=== PATIENT | male | born 1960 | race Caucasian/White ===

== ENCOUNTER 2022-07-02 14:47 | Outpatient (CLI) | payer MEDICARE, SELFPAY ==
--- NOTE | ~2022-07-02 | XR_ITS ---
EXAMINATION: XR abdomen obstructive series DATE: 07/02/2022 15:09 INDICATION: Abdomen pain. TECHNIQUE: Supine and upright views of the abdomen. FINDINGS: No prior studies for comparison. The visualized lung parenchyma is normal.. There is a nonobstructive bowel gas pattern. Moderate colo michael fecal loading. Gas and stool are seen throughout the colon to the level of the rectum. There is no free air. There is a sclerotic lesion in the left femoral neck, likely benign bone island. IMPRESSION: 1. No acute abdominal abnormality. Reviewed, dictated and finalized at location L.
--- NOTE | ~2022-07-02 | XR_ITS ---
XR chest 2V 07/02/2022 15:09 Indication: Abdomen and chest pain Procedure: 2 view chest Comparison: 07/15/2011 Findings: Focal asymmetric density in the left lower thorax most likely represents a prominent nipple shadow. Recommend repeat PA view of the chest with nipple markers. No focal air space disease, pulmo nary edema, pleural effusion or suspected pneumothorax. Impression: 1: No acute cardiopulmonary disease. 2: Recommend repeat PA view of the chest with nipple markers for further assessment of asymmetric nod ular density left lower thorax. Reviewed, dictated and finalized at location L. Impression: 1: No acute cardiopulmonary disease. 2: Recommend repeat PA view of the chest with nipple markers for further assess ment of asymmetric nodular density left lower thorax.
== END 2022-07-02 14:48 | disposition home or self-care (01) ==
LOC: ANHIMG 14:51
PROVIDERS: PCP Family Medicine; Visit Provider Family Medicine
DX: F12.10 Cannabis abuse, uncomplicated (principal); R11.0 Nausea; R63.4 Abnormal weight loss; R10.9 Unspecified abdominal pain; Z87.891 Personal history of nicotine dependence
CPT/HCPCS: 71046; 74019

== ENCOUNTER 2022-07-04 07:41 | Outpatient (CLI) | payer MEDICARE, SELFPAY ==
--- NOTE | ~2022-07-04 | XR_ITS ---
EXAMINATION: XR chest 2V DATE: 07/04/2022 08:06 INDICATION: Left lung nodule. Abnormal findings on diagnostic imaging. TECHNIQUE: Frontal and lateral views of the chest were obtained with nipple markers. COMPARISON: Chest 2 views 07/02/2022 FINDINGS: There is mild scarring at the lung apices. No pleural effusion or pneumothorax. The heart s ize is normal. IMPRESSION: 1. Stable mild scarring at the lung apices. 2. The finding on the prior chest radiograph was the normal left nipple shadow. Reviewed, dictated and finalized at location A.
== END 2022-07-04 07:42 | disposition home or self-care (01) ==
LOC: ANHIMG 07:44
PROVIDERS: PCP Family Medicine; Visit Provider Nurse Practitioner Gerontology
DX: R93.89 Abnormal findings on diagnostic imaging of other specified body structures (principal); R91.8 Other nonspecific abnormal finding of lung field
CPT/HCPCS: 71046

== ENCOUNTER 2022-07-08 07:35 | Outpatient (CLI) | payer MEDICARE, SELFPAY ==
[2022-07-08 08:01] LABS: Basophils Percent Auto 0.3 % (0.2-1.2); Eosinophils Absolute Auto 0.1 K/mm3 (0-0.3); Eosinophils Percent Auto 1.7 % (0-4.4); Hematocrit 41.7 % (42.0-52.0); Hemoglobin 13.2 g/dL (14.0-18.0); Immature Granulocyte Absolute 0.02 K/mm3 (0.00-0.031); Immature Granulocyte Percent A 0.3 % (0-0.5); Lymphocytes Absolute Auto 1.54 K/mm3 (0.9-3.2); Lymphocytes Percent Auto 21.6 % (18.3-44.2); Mean Corpuscular HGB Conc 31.7 g/dl (32-36); Mean Corpuscular Hemoglobin 30.4 pg (26-34); Mean Corpuscular Volume 96.1 fl (80-100); Mean Platelet Volume 9.2 fl (7.4-10.4); Monocytes Absolute Auto 0.6 K/mm3 (0.1-0.6); Monocytes Percent Auto 8.1 % (2.6-8.5); Neutrophils Absolute Auto 4.8 K/mm3 (1.3-6.7); Platelet Count Result 239 k/mm3 (150-375); Red Blood Count 4.34 M/mm3 (4.6-6.20); Red Cell Distribution Width 14.2 % (11.5-14.5); White Blood Count 7.1 K/mm3 (4.5-10.0)
[2022-07-08 08:11] LABS: Alanine Aminotransferase 13 U/L (6-50); Albumin Level 4.1 g/dL (3.5-5.1); Alkaline Phosphatase 95 U/L (38-126); Anion Gap 3 mmol/L (8-16); Aspartate Amino Transferase 18 U/L (17-59); Bilirubin,Total 0.4 mg/dL (0.2-1.3); Blood Urea Nitrogen 10 mg/dL (9-20); Calcium 8.6 mg/dL (8.4-10.2); Carbon Dioxide 32 mmol/L (22-30); Chloride 104 mmol/L (98-107); Cholesterol 174 mg/dL (0-200); Estimated Glomerular Filt Rate > 60; Glucose 105 mg/dL (65-110); HDL Direct 46 mg/dL; Hemoglobin A1C 5.6 % (<5.7); Potassium 4.2 mmol/L (3.4-5.0); Sodium 139 mmol/L (137-145); Triglycerides 58 mg/dL (<150); Uric Acid 3.7 mg/dL (3.5-8.5)
[2022-07-08 08:22] LABS: LDL Cholesterol Direct 114 mg/dL
[2022-07-08 08:44] LABS: Thyroid Stimulating Hormone 0.788 uIU/mL (0.465-4.680)
[2022-07-12 11:29] LABS: ANA Cascade Screen Negative (Negative)
[2022-07-14 16:51] LABS: PSA, Free 0.13 ng/mL; PSA, Total 0.7 ng/mL (<=4.0)
== END 2022-07-08 07:36 | disposition home or self-care (01) ==
LOC: ANHLAB 07:38
PROVIDERS: PCP Family Medicine; Visit Provider Family Medicine
DX: M06.30 Rheumatoid nodule, unspecified site (principal); F12.10 Cannabis abuse, uncomplicated; R63.4 Abnormal weight loss; R10.9 Unspecified abdominal pain; N40.1 Benign prostatic hyperplasia with lower urinary tract symptoms; E03.9 Hypothyroidism, unspecified; E79.0 Hyperuricemia without signs of inflammatory arthritis and tophaceous disease
CPT/HCPCS: 36415; 80053; 80061; 83036; 84153; 84154; 84443; 84550; 85025; 86038

== ENCOUNTER 2023-01-13 12:24 | Outpatient (CLI) | payer MEDICARE, SELFPAY ==
--- NOTE | ~2023-01-13 | CT_ITS ---
EXAMINATION: CT chest abdomen pelvis wo con DATE: 01/13/2023 13:02 GROUT PUMP OPERATOR INDICATION: Anemia. TECHNIQUE: Computed tomography (CT) of the chest, abdomen, and pelvis was performed without intraveno us contrast. The dose-length product was 303.34 mGy-cm. Automated exposure control and iterative eloisa nstruction technique were employed. COMPARISON: None FINDINGS: CHEST CT: No significant pleural or pericardial effusion. No thoracic lymphadenopathy. Heart size normal. There is atherosclerosis of the aorta and coronary artery. There is emphysema. No endobronchial lesions. N o pneumothorax. No focal airspace disease. ABDOMEN/PELVIS CT: At the dome of the liver there is a small locule of gas, possibly within the IVC, likely iatrogenic. There is a markedly distended gallbladder containing gas which extends into the biliary tract and adrián ng the gallbladder wall. There is also fluid and gas adjacent to the inferior margin of the gallbladd er which is not definitely intraluminal. Perforation of the gallbladder with abscess cannot be exclud ed. Recommend correlation with CT abdomen with oral and IV contrast. Nonobstructive bowel gas pattern . Mild diffuse mesenteric edema. There appears to be free air along the anterior abdomen just below t he liver. Bowel perforation is not excluded. IMPRESSION: 1. Dilated gallbladder with gas involving the gallbladder wall as well as air-fluid level in the gall bladder, suspicious for an emphysematous cholecystitis. There is gas extending into the biliary tract with possible perforation along the inferior medial margin of the gallbladder, suspicious for perfor ation with abscess. There is free air along the liver margin inferiorly and anteriorly. Consider repe at CT abdomen with IV and oral contrast. Patient will be held in radiology until patient's clinician as contacted with her report. Reviewed, dictated and finalized at location B. T PUMP OPERATOR IMPRESSION: 1. Dilated gallbladder with gas involving the gallbladder wall as well as air-f luid level in the gallbladder, suspicious for an emphysematous cholecystitis. T here is gas extending into the biliary tract with possible perforation along th e inferior medial margin of the gallbladder, suspicious for perforation with ab scess. There is free air along the liver margin inferiorly and anteriorly. Cons ider repeat CT abdomen with IV and oral contrast. Patient will be held in radiology until patient's clinician as contacted with h er report.
== END 2023-01-13 12:25 | disposition home or self-care (01) ==
PROVIDERS: PCP Family Medicine; Visit Provider Family Medicine
DX: K82.8 Other specified diseases of gallbladder (principal); D64.9 Anemia, unspecified; R11.0 Nausea; R63.4 Abnormal weight loss; R10.9 Unspecified abdominal pain; R93.89 Abnormal findings on diagnostic imaging of other specified body structures
CPT/HCPCS: 71250; 74176

== ENCOUNTER 2023-01-13 13:45 | Emergency (ER) | payer MEDICARE, SELFPAY ==
[2023-01-13 13:50] VITALS: BP 115/69; PULSE 84; RESP 16; TEMP 36.5; O2SAT 97
[2023-01-13 14:07] LABS: Hematocrit 37.6 % (42.0-52.0); Mean Corpuscular HGB Conc 31.9 g/dl (32-36); Mean Corpuscular Volume 90.8 fl (80-100); Mean Platelet Volume 9.5 fl (7.4-10.4); Platelet Count Result 374 k/mm3 (150-375); Red Blood Count 4.14 M/mm3 (4.6-6.20); Red Cell Distribution Width 14.1 % (11.5-14.5); White Blood Count 18.6 K/mm3 (4.5-10.0)
[2023-01-13 14:17] LABS: Alanine Aminotransferase 36 U/L (6-50); Albumin Level 3.1 g/dL (3.5-5.1); Alkaline Phosphatase 127 U/L (38-126); Anion Gap 12 mmol/L (8-16); Aspartate Amino Transferase 48 U/L (17-59); Bilirubin,Total 0.6 mg/dL (0.2-1.3); Blood Urea Nitrogen 24 mg/dL (9-20); Calcium 8.4 mg/dL (8.4-10.2); Carbon Dioxide 27 mmol/L (22-30); Chloride 93 mmol/L (98-107); Estimated CRCL calculation 51 ml/min; Estimated Glomerular Filt Rate > 60; Glucose 132 mg/dL (65-110); Lipase 122 U/L (23-300); Potassium 2.9 mmol/L (3.4-5.0); Sodium 132 mmol/L (137-145)
[2023-01-13 14:19] LABS: Appearance Urine Cloudy (Clear); Bacteria Urine None Seen /hpf; Bilirubin Urine 1+ (Negative); Blood Urine Negative (Negative); Color Urine Dark Yellow (Yellow); Glucose Urine UA Negative (Negative); Hyaline Casts Urine Present /lpf; Ketones Urine Trace mg/dL (Negative); Leukocyte Esterase Ur Negative LEU/UL (Negative); Mucus Urine Present /lpf; Nitrate Urine Negative (Negative); Protein Urine 1+ mg/dL (Negative); Specific Grav Ur 1.035 (1.001-1.035); Squamous Epithelial Cell Urine Moderate /hpf (Few); WBC Urine 0-5 /hpf; pH Urine 5.5 (5.0-9.0)
[2023-01-13 14:23] LABS: Add Urine Microscopic? YES
[2023-01-13 14:47] LABS: Band Neutrophils Percent 3 % (0-6); Eosinophils Absolute Manual 0.18 K/mm3 (0.02-0.5); Eosinophils Percent Manual 1 % (0-4); Monocytes Absolute Manual 0.93 K/mm3 (0.1-0.90); Monocytes Percent Manual 5 % (3-9); Neutrophils Absolute Manual 16.18 K/mm3 (1.3-6.7); Neutrophils Percent Manual 84 % (46-73); Platelet Estimate Adequate (Adequate); Total Cells Counted 100
[2023-01-13 14:55] LABS: Schistocytes None Seen (NORMAL)
--- NOTE | 2023-01-13 15:25 | ED.ABDPAIN ---
HPI - Abdominal Pain General Chief Complaint: Abdominal Pain Stated Complaint: abd pain Time Seen by Provider: 01/13/23 15:06 Source: patient and old records reviewed Mode of arrival: ambulatory Limitations: no limitations History of Present Illness HPI narrative: Patient is a 62 y/o male who presents to the ED with report of upper abdominal pain. Patient reports he has had intermittent abdominal pain over the last 1 year. He has been seeing his primary care doctor for this and trying different medications for what he was told was constipation. He reports having worsening pain since the day before Thanks[place]. He reports intermittent pain that radiates from his right lower quadrant around in a crow, as well as epigastric pain. He states at times it feels like heartburn. He has been trying a liquid diet at home which has provided some relief of the pain. He followed up with his PCP yesterday and received an outpatient CT scan of his chest/abdomen/pelvis today which showed findings concerning for perforated gallbladder, emphysematous cholecystitis. Patient was then referred here. Patient has not taken anything for pain today. Denies nausea, vomiting fevers, constipation, diarrhea. Last BM this morning. Related Data Allergies Allergy/AdvReac Type Severity Reaction Status Date / Time Penicillins Allergy Mild rash Verified 01/12/23 15:31 Review of Systems Review of Systems: CONSTITUTIONAL: Denies fever, chills, or sweats. GASTROINTESTINAL: See HPI. GENITOURINARY: Denies dysuria or hematuria. SKIN: Denies rash or itching. MUSCULOSKELETAL: Denies back pain, joint pain, or myalgia. All systems reviewed & are unremarkable except as noted in HPI and below PMFSH Social History Social History Social History: Smoking packs per day: 3 Smoking cigarettes per day: 60.0 Years smoked: 18 Smoking pack-years: 54.00 Smoking status: Former smoker Tobacco type: cigarettes Second hand tobacco smoke exposure: No Alcohol intake: never Substance use: current Substance use type: marijuana Other substance usage details: DAILY-MARIJUANA Lack of Transportation: No Lack of Food: Never True Current Housing: I Have Housing Concerned About Future Housing: No Difficulty Paying Gas/Electric Bills: No Difficulty Paying for Meds: No Currently Unemployed: YES Education: Decline to Answer Difficulty w/ Childcare or Family Care: No Living arrangements: alone Occupation/Education: retired Gender identity (if verbalized by the patient): Male Sexual Orientation (if Verbalized by the Patient): Straight or Heterosexual Spiritual care concerns: No Exam Narrative: GENERAL: Appears older than stated age, thin, somewhat frail, non-toxic, in no acute distress. HEAD: Normocephalic, atraumatic. NECK: Supple. No adenopathy, no masses. RESPIRATORY: Airway patent, respirations nonlabored. CARDIOVASCULAR: Regular rate and rhythm on telemetry. ABDOMINAL: Abdomen is somewhat firm, nondistended, mild tenderness noted in right upper quadrant/epigastric region. Normoactive BS. MUSCULOSKELETAL: Moves all extremities. No gross deformities. SKIN: Warm, dry, normal color. No rashes. NEURO: A&O X3. Speech clear. Cranial nerves II-XII grossly intact. Steady gait. No ataxic movements. PSYCHIATRIC: Appropriate mood and affect. Normal interaction. Course Vital Signs Vital signs: Vital Signs Temperature 97.7 F 01/13/23 13:50 Pulse Rate 84 01/13/23 13:50 Respiratory Rate 16 01/13/23 13:50 Blood Pressure 115/69 01/13/23 13:50 Pulse Oximetry 97 01/13/23 13:50 Oxygen Delivery Room Air 01/13/23 13:50 Temperature 97.7 F 01/13/23 13:50 Pulse Rate 84 01/13/23 13:50 Respiratory Rate 16 01/13/23 13:50 Blood Pressure 115/69 01/13/23 13:50 Pulse Oximetry 97 01/13/23 13:50 Oxygen Delivery Room Air 01/13/23 13:5
[2023-01-13] MEDS: POTASSIUM CHLORIDE 20 MEQ ER TABLET 40 MEQ PO (16:03)
[2023-01-13] MEDS: CIPROFLOXACIN 500 MG TAB PO (16:04)
[2023-01-13] MEDS: metroNIDAZOLE 500 MG TABLET PO (16:05)
== END 2023-01-13 16:21 | disposition left against medical advice (07) ==
PROVIDERS: Emergency Medicine; Emergency Provider Physician Assistant; PCP Family Medicine
DX: K81.0 Acute cholecystitis (principal); K82.A2 Perforation of gallbladder in cholecystitis; E87.6 Hypokalemia; Z87.891 Personal history of nicotine dependence
CPT/HCPCS: 36415; 80053; 81001; 83690; 85025; 99283; A9270

== ENCOUNTER 2023-01-14 09:43 | Inpatient (IN) | payer MEDICARE, SELFPAY ==
[2023-01-14] VITALS (11 sets, daily range): BP systolic 105–143; BP diastolic 59–75; PULSE 87–118; RESP 14–28; TEMP 36.3–37.3; O2SAT 97–100; BMI 17.1
--- NOTE | ~2023-01-14 | XR_ITS ---
XR abdomen gastric tube rechec INDICATION: Evaluate NG tube position. TECHNIQUE: Limited KUB perform for evaluating NG tube . COMPARISON: No prior studies for comparison. FINDINGS: NG tube tip in the stomach. There is a laparotomy staple line. There is a drainage catheter in the right upper abdomen. Visualized bowel gas pattern is unremarkable.Small left pleural effusion with left basilar airspace disease, likely atelectasis. IMPRESSION: 1: NG tube tip in the stomach. Reviewed, dictated and finalized at location A. EXPORT LOGISTICS MANAGER
--- NOTE | ~2023-01-14 | US_ITS ---
US abdomen limited 01/14/2023 13:09 Indication: Cholecystitis by CT. Procedure: High-resolution Limited ultrasound of the abdomen Comparison: CT dated 01/13/2023 Findings: Complex heterogeneous appearance to the liver with multiple ill-defined masses, largest tahira suring approximately 3 cm. Gallbladder contains debris and is thickened with pericholecystic fluid. T here is nearby complex hypoechoic structure with nondependent echogenic foci which may represent gas. Consider abscess. There is free fluid adjacent to the gallbladder. There is mild intrahepatic biliar y dilatation. CBD is normal measuring 5 mm. IVC and abdominal aorta are patent. Pancreatic duct is mi ldly prominent measuring 3 mm. No pancreatic masses. Impression: 1: Complex heterogeneous appearance to the liver including masses of the left hepatic lobe measuring up to 3 cm. Cannot exclude metastatic disease. 2: Thickened gallbladder containing sludge and pericholecystic fluid. There is fluid adjacent to the gallbladder which may represent bowel, although abscess is not excluded. 3: Recommend follow-up CT abdomen with/without IV and oral contrast for further assessment. Reviewed, dictated and finalized at location L. GUARDRAIL INSTALLER Impression: 1: Complex heterogeneous appearance to the liver including masses of the left h epatic lobe measuring up to 3 cm. Cannot exclude metastatic disease. 2: Thickened gallbladder containing sludge and pericholecystic fluid. There is fluid adjacent to the gallbladder which may represent bowel, although abscess i s not excluded. 3: Recommend follow-up CT abdomen with/without IV and oral contrast for further assessment.
--- NOTE | ~2023-01-14 | CT_ITS ---
CT of the Abdomen and Pelvis: Indication: Abnormal liver and gallbladder Technique: 2.5 mm axial scans were obtained through the abdomen and pelvis prior to and following in travenous administration of 100 cc of Omnipaque 350. Dose reduction technique was used on this scan b y utilizing automated exposure control and iterative reconstruction technique. The dose-length produc t (DLP) was 563.23 mGy-cm. COMPARISON: 01/13/2023 Findings: Scans through the lung bases are unremarkable. There is a 2.8 cm fluid collection with internal air bubble adjacent to the suprahepatic IVC/confluen ce of hepatic veins (series 6 image 28), suspicious for small abscess. There is a much larger infrahe patic abscess measuring 8.2 x 3.6 x 6.5 cm in size (axial image 67, coronal image 49). There is an ad ditional, probable separate infrahepatic abscess or anteriorly, measuring 6.1 x 2.1 x 5.8 cm (coronal image 32, axial image 81). There is an irregular hypodense area in the liver adjacent to gallbladder fossa with small bubbles of air, measuring 3.0 x 2.5 cm (series 6 image 53). There is an additional fluid collection or necrotic mass subjacent to the left hepatic lobe cyst also or malignant, directly extending into the left hep atic lobe, with multiple septations, measuring up to approximately 5.8 x 3.0 cm in overall extent (ax ial images 54-66). The spleen, pancreas, adrenals and kidneys are within normal limits. There is diff use gallbladder wall thickening. No evidence of aortic aneurysm. No lymphadenopathy. There is an irregular mass centered at the ileocolic junction/cecum, measuring up to approximately 5. 5 cm in overall maximum extent (axial image 98, coronal image 51). There is diffuse dilatation of the appendix, as origin is probably obstructed by the mass lesion. There is an additional possible mass or serosal implant at the mid transverse colon (axial image 109). There is a probable necrotic mass v ersus complex fluid collection in the anterior abdomen just left of midline measuring 6.3 x 4.4 x 3.4 cm in size (axial images 82-96, coronal image 30). Images through the pelvis were performed. Urinary bladder unremarkable. No definite pelvic mass seen. There is trace ascites with diffuse mesenteric edema. Impression: 2 intrahepatic abscesses, measuring 8.2 cm and 6.1 cm in maximum diameter respectively. Please see de tails above. Probable additional 2.8 cm abscess above the liver near the confluence of the hepatic ve in/suprahepatic IVC. 5.5 cm mass at the cecum/caudate junction region, most likely colonic adenocarcinoma. 5.8 x 3.0 cm irregular multiloculated cystic-appearing mass inferior to the left hepatic lobe, invadi ng into the left hepatic lobe. 6.3 cm necrotic mass versus complex fluid collection in the anterior l eft abdomen. These lesions could reflect necrotic metastatic disease versus complex abscesses. Additional 3.0 x 2.5 cm irregular hypodense area in the liver with small bubbles of air, suggestive o f developing abscess. This lesion is felt to be unlikely metastatic in nature. Diffuse dilatation of the appendix, whose origin is obstructed by the aforementioned cecal/ileocolic tumor. Case discussed with Dr. Bui at the time of this reading. Reviewed, dictated and finalized at location . NDING PATHOLOGIST Impression: 2 intrahepatic abscesses, measuring 8.2 cm and 6.1 cm in maximum diameter respe ctively. Please see details above. Probable additional 2.8 cm abscess above the liver near the confluence of the hepatic vein/suprahepatic IVC. 5.5 cm mass at the cecum/caudate junction region, most likely colonic adenocarc inoma. 5.8 x 3.0 cm irregular multiloculated cystic-appearing mass inferior to the lef t hepatic lobe, invading into the left hepatic lobe. 6.3 cm necrotic
--- NOTE | ~2023-01-14 | CT_ITS ---
EXAMINATION: CT guide absc cath placement, CT guide absc cath placement DATE: 01/15/2023 16:47 INDICATION: Perihepatic abscesses TECHNIQUE: The procedure including the risks and benefits was discussed with the patient. Risks discu ssed included bleeding and infection. The patient understood the risks and benefits and agreed to pro ceed. The patient was confirmed to be receiving appropriate antibiotic coverage. The skin overlying the lateral and anterior right abdomen was prepped and draped in usual sterile fashion. Anesthetic wa s administered with 1% lidocaine subcutaneously at both the sites of planned drainage catheter placem ent. An 18-gauge trochar needle was inserted into both the posterior perihepatic and anterior perihep atic abscesses utilizing CT guidance. The inner stylette removed and J-wire were advanced through the needle was into both of the abscess cavities with position confirmed by CT. Beginning with the more posterior collection, the needle was removed over the wire and utilizing Seldinger technique the trac t serially dilated to 10 Fr. A 10 Fr catheter was inserted over the wire into the posterior perihepat ic fluid collection and the pigtail tip was formed and locked. Attention was then turned to the more anterior collection. The needle was again removed over the wire and utilizing Seldinger technique the tract serially dilated to 10 Fr. A second 10 Fr catheter was inserted over the wire into the anterio r perihepatic collection and the pigtail tip was formed and locked. Following confirmation of the pos ition of both of the catheters within the appropriate abscess cavities the wires were removed and the catheters stitched to the skin with suture. 50 mL of opaque purulent appearing cage-colored fluid was aspirated from the more posterior collection and sent to lab for Gram stain and cultures. Antibiotic appointment sterile dressing were applied to both catheter access sites. The catheters were then att ached to suction drainage and both were draining additional . Appearing fluid at the conclusion of th e procedure. There were no immediate complications. The dose-length product was 193.26 mGy-cm. FINDINGS: CT images demonstrate the more posterior catheter with loop formed within the more posterio r 9.1 x 3.1 cm perihepatic abscess cavity. 50 mL fluid was aspirated for testing. The loop of the sec ond more anterior catheter is positioned within the 6.0 x 2.6 cm anterior perihepatic abscess cavity. IMPRESSION: 1. Successful CT-guided abscess drainage catheter placement into a posterior 9.1 x 3.1 cm perihepatic abscess cavity. 2. Successful CT-guided abscess drainage catheter placement into an anterior 6.0 x 2.6 similar perihe patic abscess cavity. 3. 50 mL fluid was sent for aerobic and anaerobic cultures. 4. The catheters will be managed by Dr. Bui. Reviewed, dictated and finalized at location A. INE PULLER IMPRESSION: 1. Successful CT-guided abscess drainage catheter placement into a posterior 9. 1 x 3.1 cm perihepatic abscess cavity. 2. Successful CT-guided abscess drainage catheter placement into an anterior 6. 0 x 2.6 similar perihepatic abscess cavity. 3. 50 mL fluid was sent for aerobic and anaerobic cultures. 4. The catheters will be managed by Dr. Bui.
--- NOTE | ~2023-01-14 | CT_ITS ---
EXAMINATION: CT abdomen pelvis w con DATE: 01/20/2023 13:13 INDICATION: Hepatic abscesses. TECHNIQUE: Computed tomography (CT) of the abdomen and pelvis was performed with 100 mL Omnipaque 350 intravenous contrast. Automated exposure control and iterative reconstruction technique were employe d. The dose-length product was 244.70 mGy-cm. COMPARISON: CT abdomen and pelvis 01/15/2023 FINDINGS: The visualized portions of the lung bases demonstrate small pleural effusions and mild depe ndent atelectasis. The heart size is normal. There are coronary artery calcifications. No pericardial effusion. In the caudate of the liver, there is a 3.0 x 2.4 cm abscess with a small focus of gas. Th ere are intraparenchymal abscesses in the right and left hepatic lobes near the hilum in a multicysti c (bunch of grapes) distribution. There is a 7.2 x 1.3 cm abscess at the medial margin of the inferio r posterior liver with percutaneous drain. There is a 5.2 x 1.3 cm abscess inferior to the gallbladde r with percutaneous drain. The gallbladder is contracted. There are 2.2 x 1.3 cm and 1.6 x 1.3 cm abs cesses anteroinferior to the gastric antrum. Calcifications in the spleen are consistent with old gra nulomatous disease. The pancreas and adrenal glands are normal. There are cysts in the kidneys measur ing up to 9 mm on the left. There is a 5.0 x 3.3 cm mass involving the cecum, terminal ileum, and bas e of the appendix. The appendix is dilated to 21 mm. There are no pathologically enlarged lymph nodes . There is no free intraperitoneal fluid. There is widespread stranding involving all of the fat on t he scan. There is a benign bone island in left femoral head. There is mild lumbar spondylosis. IMPRESSION: 1. Abscesses in the liver, inferior to the liver, and anteroinferior to the gastric antrum with two p ercutaneous drains. The large amount of gas in the abscesses on initial imaging favors a perforated v iscus as the origin such as a perforated gastric ulcer. 2. 5.0 cm mass involving the cecum, terminal ileum, and base of the appendix with dilatation of the a ppendix to 21 mm. 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 Reviewed, dictated and finalized at location A. GRINDER OPERATOR IMPRESSION: 1. Abscesses in the liver, inferior to the liver, and anteroinferior to the gas tric antrum with two percutaneous drains. The large amount of gas in the absces ses on initial imaging favors a perforated viscus as the origin such as a perfo rated gastric ulcer. 2. 5.0 cm mass involving the cecum, terminal ileum, and base of the appendix wi th dilatation of the appendix to 21 mm. Biopsy of this mass demonstrated tubula r adenoma.
--- NOTE | ~2023-01-14 | NM_ITS ---
EXAMINATION: NM hepatobiliary wo pharm DATE: 01/19/2023 15:47 PIANO REFINISHER INDICATION: Abnormal gallbladder COMPARISON: . CT dated 01/15/2023 and ultrasound dated 01/14/2023. TECHNIQUE: 4.9 mCi Tc-99m mebrofenin (Choletec) was administered intravenously. Scintigraphic images of the abdomen were obtained for one hour. At the 1 hour time point, the patient drank 8 oz Ensure, and imaging was continued for 60 minutes. Gallbladder ejection fraction was calculated by the technol ogist. FINDINGS: There is normal clearance of radiotracer from the blood pool. There is homogeneous tracer u ptake by the liver. Activity progresses to the bowel and gallbladder. The gallbladder ejection fract ion is 60%. Note that with this technique, normal GBEF >= 33%. IMPRESSION: 1. Normal hepatobiliary scan. Reviewed, dictated and finalized at location A. O REFINISHER
[2023-01-14 10:10] LABS: Basophils Percent Auto 0.2 % (0.2-1.2); Eosinophils Absolute Auto 0.1 K/mm3 (0-0.3); Eosinophils Percent Auto 0.3 % (0-4.4); Hematocrit 39.5 % (42.0-52.0); Hemoglobin 12.6 g/dL (14.0-18.0); Immature Granulocyte Absolute 0.11 K/mm3 (0.00-0.031); Immature Granulocyte Percent A 0.6 % (0-0.5); Lymphocytes Absolute Auto 0.73 K/mm3 (0.9-3.2); Lymphocytes Percent Auto 4.1 % (18.3-44.2); Mean Corpuscular HGB Conc 31.9 g/dl (32-36); Mean Corpuscular Hemoglobin 28.6 pg (26-34); Mean Corpuscular Volume 89.8 fl (80-100); Mean Platelet Volume 9.6 fl (7.4-10.4); Monocytes Absolute Auto 0.9 K/mm3 (0.1-0.6); Monocytes Percent Auto 4.9 % (2.6-8.5); Neutrophils Absolute Auto 15.8 K/mm3 (1.3-6.7); Neutrophils Percent Auto 89.9 % (45.5-73.1); Platelet Count Result 446 k/mm3 (150-375); Red Cell Distribution Width 14.1 % (11.5-14.5); White Blood Count 17.6 K/mm3 (4.5-10.0)
--- NOTE | 2023-01-14 10:19 | ED.GENADULT ---
HPI - General Adult General Chief complaint: Recheck/Abnormal Lab/Rx Stated complaint: To have gallbladder removed Time Seen by Provider: 01/14/23 09:49 History of Present Illness HPI narrative: 62-year-old male presenting to ED for evaluation of abdominal pain. Patient was evaluated emergency department yesterday after having an outpatient CT scan showing emphysematous cholecystitis. Patient did not want to stay and patient ultimately left AMA but returned to the hospital today. Patient states he was having worsening pain yesterday but the pain upon arrival to the emergency department today is only a 2/10. Patient states this is improved compared to yesterday. Patient initially left because he had to find care for his dogs. Patient has established care for his animals. Related Data Allergies Allergy/AdvReac Type Severity Reaction Status Date / Time Penicillins Allergy Mild rash Verified 01/14/23 09:58 Review of Systems Review of Systems: All systems reviewed & are unremarkable except as noted in HPI and below PMFSH Past Medical History Medical History Osteoarthritis Surgical History Surgical History No pertinent past surgical history Social History Social History Social History: Smoking packs per day: 3 Smoking cigarettes per day: 60.0 Years smoked: 18 Smoking pack-years: 54.00 Smoking status: Former smoker Tobacco type: cigarettes Second hand tobacco smoke exposure: No Alcohol intake: never Substance use: current Substance use type: marijuana Other substance usage details: DAILY-MARIJUANA Lack of Transportation: No Lack of Food: Never True Current Housing: I Have Housing Concerned About Future Housing: No Difficulty Paying Gas/Electric Bills: No Difficulty Paying for Meds: No Currently Unemployed: No Education: Decline to Answer Difficulty w/ Childcare or Family Care: No Living arrangements: alone Occupation/Education: retired Gender identity (if verbalized by the patient): Male Sexual Orientation (if Verbalized by the Patient): Straight or Heterosexual Spiritual care concerns: No Exam Narrative: APPEARANCE: Well appearing, no pain, no distress, well-nourished. HEAD: normocephalic, atraumatic. EYES: PERRLA/EOMI, conjunctivae clear. NOSE: Normal no drainage EARS:TMS clear with good light reflex. THROAT: Pharynx clear, no exudate. NECK: Supple. No adenopathy, no masses. RESPIRATORY: Airway patent, respirations nonlabored. Clear to auscultation bilaterally, no rales, rhonchi, wheezing. CARDIOVASCULAR: Regular rate and rhythm without murmurs rubs or gallops. ABDOMINAL: right upper quadrant tenderness to palpation, normal bowel sounds, no peritonitis MUSCULOSKELETAL: Moves all extremities. Strength/ROM intact, No edema, No calf tenderness. NEURO: Alert. Cranial nerves II through XII intact. Grossly intact SKIN: Warm, dry. Normal Color Course Course Emergency Course: [age] old male with right upper quadrant pain and a CT scan showing emphysematous cholecystitis return to the emergency department to complete his medical treatment. Patient does still have a significant leukocytosis of 17.6 and hemoglobin of 12.6. Patient does have a potassium of 2.9 and this was replaced orally. Patient does have elevated lactic acid and was treated with IV fluids. case is discussed with surgery and they will see the patient as consult. Patient was admitted to the hospitalist. Patient was updated on the results of the imaging and plan for admission. All questions concerns were addressed. Prior to going to the floor patient was restarted on his antibiotics of Levaquin and Flagyl. Vital Signs Vital signs: Vital Signs Temperature 97.4 F L 01/14/23 09:44 Pulse Rate 118 H
[2023-01-14 10:22] LABS: INR 1.1; Prothrombin Time 14.4 Seconds (11.1-14.7)
[2023-01-14 10:28] LABS: Lactic Acid Reflex 2.6 mmol/L (0.7-2.0)
[2023-01-14 10:39] LABS: Alanine Aminotransferase 41 U/L (6-50); Albumin Level 3.3 g/dL (3.5-5.1); Alkaline Phosphatase 136 U/L (38-126); Anion Gap 10 mmol/L (8-16); Aspartate Amino Transferase 49 U/L (17-59); Bilirubin,Total 0.7 mg/dL (0.2-1.3); Blood Urea Nitrogen 26 mg/dL (9-20); Calcium 8.5 mg/dL (8.4-10.2); Carbon Dioxide 34 mmol/L (22-30); Chloride 91 mmol/L (98-107); Estimated CRCL calculation 47 ml/min; Estimated Glomerular Filt Rate > 60; Glucose 146 mg/dL (65-110); Lipase 79 U/L (23-300); Potassium 2.9 mmol/L (3.4-5.0); Sodium 135 mmol/L (137-145)
[2023-01-14 10:42] LABS: Erythrocyte Sedimentation Rate 85 mm/hr (0-20)
[2023-01-14 10:49] LABS: CRP 24.4 mg/dL (<1.0)
[2023-01-14] MEDS: SODIUM CHLORIDE 0.9% IV 1,000 ML 999 ML IV CONT (10:54)
[2023-01-14] MEDS: metroNIDAZOLE 500 MG/ISO 100ML 500 MG/100 ML BAG 100 MG IVPB ×2 (11:37→18:25)
[2023-01-14] MEDS: levoFLOXacin 750 MG/D5W 150 ML 750 MG/150 ML BAG 100 MG IVPB (12:50)
--- NOTE | 2023-01-14 12:56 | PM.CNGS ---
Assessment and Plan Assessment and plan (1) Emphysematous cholecystitis: Code(s): K81.0 - Acute cholecystitis Status: Acute Assessment and Plan: CT scan showed a dilated gallbladder with gas involving the gallbladder wall as well as air-fluid levels in the gallbladder suspicious for emphysematous cholecystitis. There is also gas extending into the biliary tract with possible perforation along the inferior medial margin of the gallbladder with free air along the liver margin. The patient has been having symptoms for 2 weeks with significant improvement in his abdominal pain since last night. In the ER, he appears hemodynamically stable and comfortable. He is not complaining of any abdominal pain at this time and is only mildly tender in the right upper quadrant. No peritoneal signs on exam. I discussed the CT findings with the patient in detail. I have also discussed the case with Dr. Bui, who recommends continuing broad-spectrum IV antibiotics and offered proceeding with a laparoscopic cholecystectomy today versus monitoring on IV antibiotics for the next 24 hours. RUQ US results are still pending, which will also be reviewed. I discussed treatment options with the patient including proceeding with surgery today versus admitting on IV antibiotics with close monitoring. Description of the procedure, risks, benefits, alternatives, and expected recovery were discussed with the patient in detail. We discussed the risks of bile leak and bile duct injury, liver/bowel injury, bleeding, and infection. Also discussed the possibility of having to convert to an open procedure if necessary. The patient would prefer to try IV antibiotics and closely monitor at this time and monitor. He is aware that he will eventually need surgery, but would prefer to try conservative treatment initially and come back as an outpatient if at all possible. Will allow the patient to have clear liquids today. Repeat labs and abdominal exam tomorrow, and will decide further plan depending on how he progresses. (2) Weight loss: Code(s): R63.4 - Abnormal weight loss Status: Acute Assessment and Plan: Unintentional weight loss of at least 50 lbs in the past year. He does report additional weight loss of almost 20 lbs in the past two weeks, but he has not been able to tolerate a regular diet. Needs further workup for etiology. (3) Marijuana abuse, continuous: Code(s): F12.10 - Cannabis abuse, uncomplicated Status: Acute Assessment and Plan: Smokes marijuana daily for arthritic pain in his knees and hips. (4) Anemia: Qualifiers: Anemia type: unspecified type Qualified Code(s): D64.9 - Anemia, unspecified Code(s): D64.9 - Anemia, unspecified Status: Acute Plan I have discussed the patient's case and plan of care with Dr. Bui. Thank you for allowing us to see the patient in consultation and we will continue to follow along with you. History of Present Illness Consult details Consult date: 01/14/23 Reason for consult: other (Emphysematous cholecystitis) Requesting physician: Sergio Vazquez MD Narrative: This is a 62-year-old pleasant gentleman who we have been asked to see in surgical consultation for emphysematous cholecystitis. He reports having intermittent right upper quadrant abdominal pain for the past year. He initially saw his primary care provider who had done x-rays and lab work, and he was reportedly told he was constipated. He was taking Dulcolax as needed. His abdominal pain was mild at that time and would resolve spontaneously, therefore he monitored this issue. Two weeks ago, he had eaten chicken and dumplings for dinner and shortly after developed severe epigastric abdominal pain. His pain was so severe that he reportedly yelled out loud. He reports associated nausea, vomiting, and diarrhea. His pain was so severe that he had state at home in his house and was unable to go to work o
[2023-01-14 13:10] LABS: Reflex Lactic Acid Yes or No Add Lactic
[2023-01-14 13:44] LABS: Lactic Acid 1.3 mmol/L (0.7-2.0)
[2023-01-14] MEDS: POTASSIUM CHLORIDE INJ 40 MEQ in SODIUM CHLORIDE 0.9% IV 500 ML 130 MEQ IVPB (14:00)
[2023-01-14] MEDS: POTASSIUM CHLORIDE 20 MEQ PACKET (FOR LIQUID) 40 MEQ PO (14:09)
[2023-01-14] MEDS: SODIUM CHLORIDE 0.9% IV 1,000 ML 125 ML IV CONT (16:07)
--- NOTE | 2023-01-14 16:08 | PM.IMHP ---
H&P: HPI History of Present Illness Date/Time: 01/14/23 16:08 Chief Complaint: Abdominal Pain, N/V/D Narrative: 62 y/o M presents here with upper abdominal pain, N/V/D, and weight loss with PMH of arthritis and former tobacco use (heavy use for 18 years). Patient reports that he began experiencing intermittent lower abdominal pain daily approximately 1 year ago (Feb 2022). Patient does not typically follow with a PCP, however he recently became established with MD. Jennifer in order to have this assessed. He was then prescribed docusate with some resolution of lower abdominal pain as well as an iron supplement for anemia. However late December, around , he experienced abrupt onset of upper abdominal pain post-prandial. Pain was persistent and accompanied by a reduction in appetite, diarrhea, nausea, and vomiting. Patient reports the abdominal pain occasionally worsened with p.o. intake and occasionally provided relief with p.o. intake. States he has been unable to keep majority of food down but has had some success with liquid diet. +weight loss in last 2 weeks, went from 129 lbs to 110 lbs. concern weight loss may have been present before the last 2 weeks. states he previously weighed 145 lbs, unclear when weight began to decrease. Since upper abdominal pain has started he has also began experiencing severe heartburn that has been aggravated most PO intake, including PO intake. trialed OTC antacid but was unable to tolerate. He describes his stools as liquid and yellow with partially digested food, having on average 3-4 bowel movements per day for the past 2 weeks. patient reports that his abdomen has felt firm but not distended/bloated. he reported some of these findings to his PCP on 01/12, initially refused to come to ED and elected to do workup outpatient. CT of abdomen (01/13) was performed and was concerning for emphysematous cholecystitis with possible perforation with abscess. Patient was then referred to the ED same day (01/13). Initial work up showed elevated WBC of 18.6, hypokalemia at 2.9, and stable kidney function. Radiology recommended additional CT with IV and oral contrast, unable to be obtained because patient ultimately elected to leave AMA due to home and dogs needing care. Stated he would make arrangements and return. Prior to AMA, patient was given dose of PO K, Cipro and Flagyl IVPB. Patient now returns today with significant reduction in RUQ/upper abdominal pain. Labs showed mild reduction in WBC at 17.6, elevated lactic acid at 2.6, and hypokalemia. GenSurg was again consulted and patient was offered surgical management today - elected to proceed with medical management, IV antibiotics and close monitoring at this time. Review of Systems Review of Systems: All systems reviewed & are unremarkable except as noted in HPI and below PMFSH Past Medical History Medical History (Updated 01/14/23 @ 21:09 by Kristi Brumfield APRN) Anemia History of tobacco abuse Marijuana abuse, continuous used for pain control r/t arthritis Osteoarthritis Surgical History Surgical History No pertinent past surgical history Family History Family History (Updated 01/14/23 @ 20:58 by Kristi Brumfield APRN) Father Cancer, Onset Age: 58 unclear primary source, was metastatic at time of diagnosis and was shortly after discovered Acute myocardial infarction, Onset Age: 58 Sibling Cancer brother, not close with family. unknown type. Sibling Cancer brother, colon cancer. Social History Social History (Updated 01/14/23 @ 20:59 by Kristi Brumfield APRN) Social History: Currently lives in [facility] in [place]. Lives alone with dogs. . Elects family friend, Jamie Sands, as surrogate decision maker. Code Status: Full Code, requesting no prolonged ventilation or permanent G-tube. Okay with temporary NG/OG. Smoking pack
--- NOTE | 2023-01-14 16:46 | ADMGEN ---
This patient, Jose Manuel Kelsey, was admitted to Virtual Bed 3rd Floor-1. Patient/family oriented to hospital policies and general routines including ID bracelet, bed and alarms, visiting hours, pain management, procedures, bathroom and other care routines, personal items, smoking policy, room service/diet, and visiting hours. Information on how to activate the Rapid Response Team has been discussed. Patient/Family are encouraged to report perceived risks to care and to ask questions if they do not understand what they are told or what they should do.
[2023-01-15] VITALS (17 sets, daily range): BP systolic 121–150; BP diastolic 59–80; PULSE 73–100; RESP 14–34; TEMP 36.9–37.1; O2SAT 98–100; BMI 17.1
[2023-01-15] MEDS: metroNIDAZOLE 500 MG/ISO 100ML 500 MG/100 ML BAG 100 MG IVPB ×4 (00:12→16:59)
[2023-01-15 06:30] LABS: Basophils Percent Auto 0.1 % (0.2-1.2); Eosinophils Absolute Auto 0.1 K/mm3 (0-0.3); Eosinophils Percent Auto 0.8 % (0-4.4); Hematocrit 31.1 % (42.0-52.0); Hemoglobin 9.8 g/dL (14.0-18.0); Immature Granulocyte Absolute 0.06 K/mm3 (0.00-0.031); Immature Granulocyte Percent A 0.5 % (0-0.5); Lymphocytes Absolute Auto 0.87 K/mm3 (0.9-3.2); Lymphocytes Percent Auto 7.3 % (18.3-44.2); Mean Corpuscular HGB Conc 31.5 g/dl (32-36); Mean Corpuscular Hemoglobin 28.8 pg (26-34); Mean Corpuscular Volume 91.5 fl (80-100); Mean Platelet Volume 9.9 fl (7.4-10.4); Monocytes Absolute Auto 1.3 K/mm3 (0.1-0.6); Monocytes Percent Auto 10.5 % (2.6-8.5); Neutrophils Absolute Auto 9.7 K/mm3 (1.3-6.7); Neutrophils Percent Auto 80.8 % (45.5-73.1); Platelet Count Result 345 k/mm3 (150-375); Red Cell Distribution Width 14.2 % (11.5-14.5)
[2023-01-15 06:53] LABS: Alanine Aminotransferase 30 U/L (6-50); Albumin Level 2.3 g/dL (3.5-5.1); Alkaline Phosphatase 99 U/L (38-126); Anion Gap 6 mmol/L (8-16); Aspartate Amino Transferase 32 U/L (17-59); Bilirubin,Total 0.5 mg/dL (0.2-1.3); Blood Urea Nitrogen 14 mg/dL (9-20); Calcium 7.8 mg/dL (8.4-10.2); Carbon Dioxide 25 mmol/L (22-30); Chloride 103 mmol/L (98-107); Estimated CRCL calculation 66 ml/min; Estimated Glomerular Filt Rate > 60; Glucose 94 mg/dL (65-110); Magnesium 1.8 mg/dL (1.6-2.3); Phosphorus 2.7 mg/dL (2.5-4.5); Potassium 3.1 mmol/L (3.4-5.0); Sodium 134 mmol/L (137-145)
[2023-01-15 07:45] LABS: CRP 16.2 mg/dL (<1.0)
[2023-01-15] MEDS: POTASSIUM CHLORIDE INJ 40 MEQ in SODIUM CHLORIDE 0.9% IV 500 ML 130 MEQ IVPB (10:00)
[2023-01-15] MEDS: SODIUM CHLORIDE 0.9% IV 1,000 ML 150 ML IV CONT (10:03)
[2023-01-15] MEDS: PANTOPRAZOLE SODIUM IV 40 MG VIAL IV PUSH ×2 (10:14→20:39)
--- NOTE | 2023-01-15 11:50 | PM.PNGS ---
Progress Note: A&P Assessment and Plan (1) Hepatic abscess: Code(s): K75.0 - Abscess of liver Status: Acute Assessment and Plan: Patient has 2 large perihepatic abscesses but also several smaller intrahepatic abscesses. Patient will have image guided percutaneous drainage of the 2 large Addy hepatic abscesses and pigtail catheters placed. Continue IV antibiotics. IV antibiotics should allow healing of the intrahepatic abscesses. (2) Protein-calorie malnutrition, severe: Code(s): E43 - Unspecified severe protein-calorie malnutrition Status: Acute Assessment and Plan: Nutritional assessment underway. (3) Emphysematous cholecystitis: Code(s): K81.0 - Acute cholecystitis Status: Acute Assessment and Plan: This diagnosis less certain that it was on the noncontrast CT scans. May not have cholecystitis at all. (4) Neoplasm of ascending colon: Code(s): D49.0 - Neoplasm of unspecified behavior of digestive system Status: Acute Assessment and Plan: I spoke to Dr. Muir. With the CT findings he will cancel the EGD for today. Plan to go ahead with colonoscopy probably Wednesday or Wednesday. (5) Weight loss: Code(s): R63.4 - Abnormal weight loss Status: Acute Assessment and Plan: Likely due to metastatic cancer that may have liver Mets and and abdominal wall metastasis. Primary appears to be cecum. Subjective Subjective Date/Time Seen: 01/15/23 11:50 Patient reports: no new complaints, pain is less, tolerating liquids well (Patient very angry this morning when told he would not be able to eat as he was to have EGD today.) and afebrile Review of Systems Review of Systems: All systems reviewed & are unremarkable except as noted in HPI and below (HPI and those items noted below) Constitutional: Constitutional: Denies headache(s) ENT: Denies headache(s) Cardiovascular: Cardiovascular: Denies chest pain and Denies dyspnea Respiratory: Respiratory: Denies cough and Denies dyspnea Gastrointestinal: Gastrointestinal: Reports as per HPI Neurologic: Denies confusion and Denies headache(s) Psychiatric: Psychiatric: Denies confusion Exam Const: General: comfortable and no acute distress Nutritional Appearance: cachectic and malnourished Orientation/consciousness: patient oriented x3 GI: Inspection: normal to inspection and scaphoid GI Palp: Yes Firmness to palpation present (GI), Yes Tenderness to palpation present (GI) (Slight right upper quadrant tenderness), No Guarding due to palpation present (GI), No Hernia present, No Palpable mass present and No Rebound tenderness present Neuro: General: patient oriented x3 and no focal motor deficits Extrem: General: no calf tenderness and no edema Psych: Affect: normal affect Insight: Limited insight present (Psych) Judgement: Poor judgement present (Psych) Objective Data Vital Signs Vital Signs: Vital Signs - 24 hr 01/14/23 12:46 01/14/23 13:16 01/14/23 13:25 Temperature Pulse Rate 87 92 91 Respiratory Rate 20 19 17 Blood Pressure 130/62 126/67 126/67 Pulse Oximetry 99 100 97 Oxygen Delivery 01/14/23 15:27 01/14/23 16:07 01/14/23 21:42 Temperature 37.3 C Pulse Rate 100 93 93 Respiratory Rate 19 28 H 14 Blood Pressure 129/74 124/75 143/69 H Pulse Oximetry 100 99 98 Oxygen Delivery 01/15/23 06:00 01/15/23 10:00 Temperature 36.9 C Pulse Rate 81 Respiratory Rate 14 Blood Pressure 150/73 H Pulse Oximetry 99 Oxygen Delivery Room Air Intake/Output Intake/Output: Intake & Output 01/12/23 01/13/23 01/14/23 01/15/23 23:59 23:59 23:59 23:59 Intake Total 1870 1440 Balance 1870 1440 Meds/Results Medications: Active Medications Generic Name Dose Route Start Last Admin Trade Name Freq PRN Reason Stop Dose Admin Acetaminophen 500 mg 01/14/23 21:33 Acetaminophen 500 Mg Tablet PO Q6H PRN Mild Pain (1-3) or Feve
[2023-01-15 12:10] LABS: Glucose Point of Care 96 mg/dl (65-105)
[2023-01-15 12:44] LABS: Carcinoembryonic Antigen 2.6 ng/mL (0.0-3.0)
--- NOTE | 2023-01-15 14:21 | PM.IMPN ---
Progress Note: A&P Assessment and Plan (1) Emphysematous cholecystitis: Code(s): K81.0 - Acute cholecystitis Status: Acute Assessment and Plan: CT abd/pelvis (01/12) - Dilated gallbladder with gas involving the gallbladder wall as well as air-fluid level in the gallbladder, suspicious for an emphysematous cholecystitis. There is gas extending into the biliary tract with possible perforation along the inferior medial margin of the gallbladder, suspicious for perforation with abscess. There is free air along the liver margin inferiorly and anteriorly. US of abdomen (01/14) - 1: Complex heterogeneous appearance to the liver including masses of the left hepatic lobe measuring up to 3 cm. Cannot exclude metastatic disease. 2: Thickened gallbladder containing sludge and pericholecystic fluid. There is fluid adjacent to the gallbladder which may represent bowel, although abscess is not excluded. General Surgery consulted - Hao HAY. Will ultimately need surgery, however would like to proceed with this outpatient. IV and oral contrast CT was recommended, obtain tomorrow 01/15. Will need caloric increase prior to surgery, possible need for tube feeds or TPN. Continue Metronidazole and Levaquin IVPB. Blood cultures pending. Zofran PRN. will proceed with clear liquid diet when able initiate PPI. continue pain management if abdominal pain returns. serial abdominal exams Q4-6H. continue to monitor labs. (2) Weight loss: Code(s): R63.4 - Abnormal weight loss Status: Acute Assessment and Plan: likely related to possible metastatic mass on liver and lack of intake r/t pain dietary consulted - will need supplementation and possible TPN, tube feeds prior to surgical intervention if needed (3) Anemia: Qualifiers: Anemia type: unspecified type Qualified Code(s): D64.9 - Anemia, unspecified Code(s): D64.9 - Anemia, unspecified Status: Acute Assessment and Plan: H&H this am 9.8, 31.1 no obvious signs of bleed will continue to monitor iron supplementation if needed (4) Marijuana abuse, continuous: Code(s): F12.10 - Cannabis abuse, uncomplicated Status: Acute Assessment and Plan: daily use for pain control r/t arthritis, does not like to take oral medication for pain control. no other drug or tobacco use reported. Plan Home Meds/Chronic Conditions - no daily medications Diet: will need clear liquid diet GI Prophylaxis: Pantoprazole q.12 DVT Prophylaxis: SCDs, hold on pharm due to possible procedures Lines: pIV Code Status: Full Code, does not want prolonged ventilation or per minute G-tube ( feeding tube ). He is okay with a temporary NG or OG. Subjective Date/time seen: 01/15/23 14:21 Interval history: Patient is laying in bed this morning in no acute distress. He denies abdominal pain this morning but is stressed about who is taking care of his dogs while he is here. He wants to be cooperative with treatment, but wants to get home to them as soon as possible. He reports he lost approximately 40 lbs in 6 months from December of last year until May of this year when he finally went to a doctor for the first time in about 15 years. He has subsequently lost more weight, but reports he eats when he is not in pain. GI, Gen surgery following. His EGD was cancelled for drainage placement by US today. Will let him eat after as he is very hungry and threatening to leave AMA if he can't eat. Assured him we will let him have PO intake as soon as we can. Will continue IV antibiotics and replace potassium. Review of Systems Review of Systems: All systems reviewed & are unremarkable except as noted in HPI and below Exam Const: General: comfortable and no acute distress Other: +emaciation. HENMT: Face/Nose/Sinus: Normal nares present Mouth: Yes dry mucous membranes Eyes: General: appearance normal, both ey
--- NOTE | 2023-01-15 15:17 | WPDMODSED ---
Moderate Sedation Note-Pt Data Patient Data Diagnosis: perihepatic abscesses Present Complaint: right upper quadrant pain and korina loss Procedure to be performed/Plan: percutaneous abscess drain placement x 2 Allergies Allergy/AdvReac Type Severity Reaction Status Date / Time Penicillins Allergy Mild rash Verified 01/14/23 09:58 Home Medications Medication Instructions Recorded Confirmed Type ciprofloxacin HCl 500 mg tablet 500 mg PO Q12H 7 days #14 tabs 01/13/23 01/14/23 Rx metronidazole 500 mg tablet 500 mg PO Q8H 7 days #21 tabs 01/13/23 01/14/23 Rx Current Medications: Active Medications Acetaminophen (Acetaminophen 500 Mg Tablet) 500 mg PO Q6H PRN PRN Reason: Mild Pain (1-3) or Fever Dextrose (Dextrose 50% 25 Gm/50 Ml Syringe) 12.5 gm IV PUSH PRN PRN; Protocol PRN Reason: Hypoglycemia Glucagon (Glucagon For Inj 1 Mg Vial) 1 mg IM PRN PRN; Protocol PRN Reason: Hypoglycemia Hydromorphone HCl (Hydromorphone Hcl Inj (*Crx) 1 Mg/Ml Syr) 0.5 mg IV PUSH Q4H PRN PRN Reason: Pain Rated 7-10 Levofloxacin/Dextrose (Levaquin 750 Mg/D5w 150 Ml) 750 mg in 150 mls @ 100 mls/hr IVPB Q48H KULDIP Metronidazole (Flagyl 500 Mg/Iso Soln 100 Ml) 500 mg in 100 mls @ 100 mls/hr IVPB Q6H [facility] Last Infusion: 01/15/23 13:25 Dose: Infused Sodium Chloride (Normal Saline Iv) 1,000 mls @ 150 mls/hr IV CONT .Q6H40M [facility] Last Infusion: 01/15/23 10:05 Dose: 0 mls/hr Dextrose (Dextrose 5% 1,000 Ml) 1,000 mls @ 100 mls/hr IVPB PRN PRN; Protocol PRN Reason: Hypoglycemia Ondansetron HCl (Ondansetron Inj 4 Mg/2 Ml Vial) 4 mg IV PUSH Q4H PRN PRN Reason: Nausea And Vomiting Pantoprazole Sodium (Pantoprazole Sodium Iv 40 Mg Vial) 40 mg IV PUSH Q12HR [facility] Last Admin: 01/15/23 10:14 Dose: 40 mg Sedation/Anesthesia: No previous sedation/anesthesia problems (including family history). [facility] Past Medical History Medical History (Updated 01/15/23 @ 11:57 by Giovanni Bui MD) Anemia History of tobacco abuse Marijuana abuse, continuous used for pain control r/t arthritis Osteoarthritis Surgical History Surgical History No pertinent past surgical history Family History Family History (Updated 01/14/23 @ 20:58 by Kristi Brumfield APRN) Father Cancer, Onset Age: 58 unclear primary source, was metastatic at time of diagnosis and was shortly after discovered Acute myocardial infarction, Onset Age: 58 Sibling Cancer brother, not close with family. unknown type. Sibling Cancer brother, colon cancer. Social History Social History (Updated 01/14/23 @ 20:59 by Kristi Brumfield APRN) Social History: Currently lives in [facility] in [place]. Lives alone with dogs. . Elects family friend, Jamie Sands, as surrogate decision maker. Code Status: Full Code, requesting no prolonged ventilation or permanent G-tube. Okay with temporary NG/OG. Smoking packs per day: 3 Smoking cigarettes per day: 60.0 Years smoked: 18 Smoking pack-years: 54.00 Smoking status: Former smoker Tobacco type: cigarettes Second hand tobacco smoke exposure: No Alcohol intake: never Substance use: current Substance use type: marijuana Other substance usage details: DAILY-MARIJUANA Lack of Transportation: No Lack of Food: Never True Current Housing: I Have Housing Concerned About Future Housing: No Difficulty Paying Gas/Electric Bills: No Difficulty Paying for Meds: No Currently Unemployed: No Education: Decline to Answer Difficulty w/ Childcare or Family Care: No Living arrangements: alone Occupation/Education: retired Gender identity (if verbalized by the patient): Male Sexual Orientation (if Verbalized by the Patient): Straight or Heterosexual Spiritual care concerns: No Mod Sed Physical Exam Physical Exam Pre Procedural Exam: Normal: Throat, Lungs, Heart Rate and Heart Rhythm an
[2023-01-15 17:36] LABS: Potassium 3.3 mmol/L (3.4-5.0)
[2023-01-15] MEDS: ONDANSETRON INJ 4 MG/2 ML VIAL IV PUSH (20:45)
[2023-01-16] MEDS: metroNIDAZOLE 500 MG/ISO 100ML 500 MG/100 ML BAG 100 MG IVPB ×4 (00:10→18:01)
[2023-01-16] MEDS: SODIUM CHLORIDE 0.9% IV 1,000 ML 150 ML IV CONT ×2 (05:13→11:59)
[2023-01-16 06:00] VITALS: BP 120/64; PULSE 70; RESP 17; TEMP 37; O2SAT 99
[2023-01-16 06:10] LABS: Basophils Percent Auto 0.1 % (0.2-1.2); Eosinophils Absolute Auto 0.2 K/mm3 (0-0.3); Hematocrit 29.8 % (42.0-52.0); Hemoglobin 9.5 g/dL (14.0-18.0); Immature Granulocyte Absolute 0.05 K/mm3 (0.00-0.031); Immature Granulocyte Percent A 0.5 % (0-0.5); Lymphocytes Absolute Auto 0.98 K/mm3 (0.9-3.2); Mean Corpuscular HGB Conc 31.9 g/dl (32-36); Mean Corpuscular Hemoglobin 29.2 pg (26-34); Mean Corpuscular Volume 91.7 fl (80-100); Mean Platelet Volume 8.9 fl (7.4-10.4); Monocytes Absolute Auto 0.8 K/mm3 (0.1-0.6); Monocytes Percent Auto 8.5 % (2.6-8.5); Neutrophils Absolute Auto 7.8 K/mm3 (1.3-6.7); Neutrophils Percent Auto 78.9 % (45.5-73.1); Platelet Count Result 301 k/mm3 (150-375); Red Blood Count 3.25 M/mm3 (4.6-6.20); Red Cell Distribution Width 14.3 % (11.5-14.5); White Blood Count 9.8 K/mm3 (4.5-10.0)
[2023-01-16 06:23] LABS: Anion Gap 4 mmol/L (8-16); Blood Urea Nitrogen 9 mg/dL (9-20); Calcium 7.3 mg/dL (8.4-10.2); Carbon Dioxide 27 mmol/L (22-30); Chloride 104 mmol/L (98-107); Estimated CRCL calculation 59 ml/min; Estimated Glomerular Filt Rate > 60; Glucose 96 mg/dL (65-110); Potassium 2.7 mmol/L (3.4-5.0); Sodium 135 mmol/L (137-145)
[2023-01-16 08:08] VITALS: O2SAT 96
[2023-01-16] MEDS: PANTOPRAZOLE SODIUM IV 40 MG VIAL IV PUSH ×2 (08:16→20:39)
[2023-01-16] MEDS: levoFLOXacin 750 MG/D5W 150 ML 750 MG/150 ML BAG 100 MG IVPB (08:18)
[2023-01-16] MEDS: POTASSIUM CHLORIDE INJ 40 MEQ in SODIUM CHLORIDE 0.9% IV 500 ML 130 MEQ IVPB (08:19)
[2023-01-16] MEDS: POTASSIUM CHLORIDE 20 MEQ PACKET (FOR LIQUID) 40 MEQ PO (08:23)
--- NOTE | 2023-01-16 10:11 | WPDGICN ---
Assessment and Plan Assessment and plan (1) Weight loss: Code(s): R63.4 - Abnormal weight loss Status: Acute Assessment and Plan: HE HAS LOST ABOUT 50 LB IN THE PAST YEAR. HE HAS HAD NO PROBLEMS WITH VOMITING AND HIS APPETITE IS FAIR BUT FOR THE PAST SEVERAL WEEKS HE HAS NOT BEEN ABLE TO EAT MUCH BECAUSE HE IS SO UNCOMFORTABLE. HE HAS BEEN LIVING PRIMARILY ON FLUIDS. (2) Hepatic abscess: Code(s): K75.0 - Abscess of liver Status: Acute Assessment and Plan: Found on CT scan. He feels much better since it has been drained. (3) Emphysematous cholecystitis: Code(s): K81.0 - Acute cholecystitis Status: Acute (4) Neoplasm of ascending colon: Code(s): D49.0 - Neoplasm of unspecified behavior of digestive system Status: Acute Assessment and Plan: CT scan suggests a mass in the area of the cecum. This is that the ileal colic junction/cecum there is also suggestive of a possible mass in the transverse colon. Colonoscopy will be scheduled for Wednesday. (5) Abnormal CT scan, gastrointestinal tract: Code(s): R93.3 - Abnormal findings on diagnostic imaging of other parts of digestive tract Status: Acute Assessment and Plan: ABDOMEN AND PELVIS: At the dome of the liver there is a small locule of gas, possibly within the IVC, likely iatrogenic. There is a markedly distended gallbladder containing gas which extends into the biliary tract and along the gallbladder wall. There is also fluid and gas adjacent to the inferior margin of the gallbladder which is not definitely intraluminal. Perforation of the gallbladder with abscess cannot be excluded. Recommend correlation with CT abdomen with oral and IV contrast. Nonobstructive bowel gas pattern. Mild diffuse mesenteric edema. There appears to be free air along the anterior abdomen just below the liver. Bowel perforation is not excluded. GI Consult Note Consult date/time: 01/16/23 10:11 HPI: Jose Manuel Kelsey is a 62 year old male who was admitted 2 days ago with several issues. For 1 thing he has lost 50 lb in the past year. His appetite has been fair but he denies vomiting. He has been having pain in the right upper quadrant for the past year and this has become increasingly worse. He recently saw a primary care physician who thought he was constipated and gave him Dulcolax. His pain became much more severe 2 weeks ago. At that time he also developed diarrhea. His stools have been watery and yellow since then. He denies seeing blood in his stools. Shortly before admission he had outpatient CT scan that showed a dilated gallbladder with gas involving the gallbladder as well as air-fluid levels and suspicion for possible perforation behind the gallbladder. He then went down yesterday for percutaneous drainage of the area and a large amount of purulent material has been drained so far. He states that he feels miraculously better since then. He he is hungry. He had gotten the impression he would have regular food last night but he is on clear liquids. Other findings on the CT scan include evidence of possible hepatic metastases and a mass in the area of the cecum. Review of Systems Review of Systems: All systems reviewed & are unremarkable except as noted in HPI and below PMFSH Past Medical History Medical History Anemia History of tobacco abuse Marijuana abuse, continuous used for pain control r/t arthritis Osteoarthritis Surgical History Surgical History No pertinent past surgical history Family History Family History Father Cancer, Onset Age: 58 unclear primary source, was metastatic at time of diagnosis and was shortly after discovered Acute myocardial infarction, Onset Age: 58 Sibling Cancer brother, not
--- NOTE | 2023-01-16 11:55 | PM.PNGS ---
Progress Note: A&P Assessment and Plan (1) Hepatic abscess: Code(s): K75.0 - Abscess of liver Status: Acute Assessment and Plan: Doing well after percutaneous drain placement 01/15. Continue IV antibiotics. (2) Protein-calorie malnutrition, severe: Code(s): E43 - Unspecified severe protein-calorie malnutrition Status: Acute Assessment and Plan: Encourage PO intake. Patient with low BMI and unintentional weight loss suspicious for cancer. (3) Emphysematous cholecystitis: Code(s): K81.0 - Acute cholecystitis Status: Acute Assessment and Plan: This diagnosis less certain than it was on the noncontrast CT scans. May not have cholecystitis at all. (4) Neoplasm of ascending colon: Code(s): D49.0 - Neoplasm of unspecified behavior of digestive system Status: Acute Assessment and Plan: Continue workup per GI. Probable colonoscopy Wednesday. (5) Weight loss: Code(s): R63.4 - Abnormal weight loss Status: Acute Assessment and Plan: Likely due to metastatic cancer that may have liver Mets and and abdominal wall metastasis. Primary appears to be cecum. Subjective Subjective Date/Time Seen: 01/16/23 11:55 Interval history: Feeling much better today after drains placed yesterday. Tolerating diet. Pain controlled. No fevers. Exam GI: Inspection: non-distended GI Palp: Yes Soft to palpation, No Tenderness to palpation present (GI) and No Guarding due to palpation present (GI) Auscultation: normal bowel sounds Other: Pigtail drains with minimal purulent output. Objective Data Vital Signs Vital Signs: Vital Signs - 24 hr 01/15/23 15:20 01/15/23 15:27 01/15/23 15:35 Temperature Pulse Rate 100 94 94 Respiratory Rate 30 H 22 H 21 H Blood Pressure 129/80 124/59 L 134/64 Pulse Oximetry 100 100 100 Oxygen Delivery Nasal Cannula Nasal Cannula Nasal Cannula Oxygen Flow Rate 2 2 2 01/15/23 15:40 01/15/23 15:45 01/15/23 15:50 Temperature Pulse Rate 92 95 88 Respiratory Rate 17 24 H 30 H Blood Pressure 134/67 132/65 123/64 Pulse Oximetry 100 100 99 Oxygen Delivery Nasal Cannula Nasal Cannula Nasal Cannula Oxygen Flow Rate 2 2 2 01/15/23 15:55 01/15/23 16:00 01/15/23 16:05 Temperature Pulse Rate 87 82 82 Respiratory Rate 21 H 25 H 31 H Blood Pressure 127/65 121/61 122/64 Pulse Oximetry 99 99 99 Oxygen Delivery Nasal Cannula Nasal Cannula Nasal Cannula Oxygen Flow Rate 2 2 2 01/15/23 16:10 01/15/23 16:15 01/15/23 16:20 Temperature Pulse Rate 82 83 84 Respiratory Rate 34 H 30 H 29 H Blood Pressure 125/63 127/63 126/65 Pulse Oximetry 99 98 99 Oxygen Delivery Nasal Cannula Nasal Cannula Nasal Cannula Oxygen Flow Rate 2 2 2 01/15/23 16:25 01/15/23 16:30 01/15/23 16:55 Temperature Pulse Rate 91 81 81 Respiratory Rate 21 H 21 H 20 Blood Pressure 130/66 121/63 144/79 H Pulse Oximetry 99 99 98 Oxygen Delivery Nasal Cannula Nasal Cannula Room Air Oxygen Flow Rate 2 2 01/15/23 22:00 01/16/23 06:00 01/16/23 08:15 Temperature 37.1 C 37.0 C Pulse Rate 73 70 Respiratory Rate 18 17 Blood Pressure 124/68 120/64 Pulse Oximetry 98 99 Oxygen Delivery Room Air Oxygen Flow Rate 01/16/23 08:08 Temperature Pulse Rate Respiratory Rate Blood Pressure Pulse Oximetry 96 Oxygen Delivery Room Air Oxygen Flow Rate Intake/Output Intake/Output: Intake & Output 01/13/23 01/14/23 01/15/23 01/16/23 23:59 23:59 23:59 23:59 Intake Total 1870 2660 2230 Output Total 75 Balance 1870 2660 2155 Meds/Results Medications: Active Medications Generic Name Dose Route Start Last Admin Trade Name Freq PRN Reason Stop Dose Admin Acetaminophen 500 mg 01/14/23 21:33 Acetaminophen 500 Mg Tablet PO Q6H PRN Mild Pain (1-3) or Fever Dextrose 12.5 gm 01/15/23 09:19 Dextrose 50% 25 Gm/50 Ml Syringe IV PUSH PRN PRN Hypoglycemia Protocol G
--- NOTE | 2023-01-16 13:22 | PM.IMPN ---
Progress Note: A&P Assessment and Plan (1) Emphysematous cholecystitis: Code(s): K81.0 - Acute cholecystitis Status: Acute Assessment and Plan: CT abd/pelvis (01/12) - Dilated gallbladder with gas involving the gallbladder wall as well as air-fluid level in the gallbladder, suspicious for an emphysematous cholecystitis. There is gas extending into the biliary tract with possible perforation along the inferior medial margin of the gallbladder, suspicious for perforation with abscess. There is free air along the liver margin inferiorly and anteriorly. US of abdomen (01/14) - 1: Complex heterogeneous appearance to the liver including masses of the left hepatic lobe measuring up to 3 cm. Cannot exclude metastatic disease. 2: Thickened gallbladder containing sludge and pericholecystic fluid. There is fluid adjacent to the gallbladder which may represent bowel, although abscess is not excluded. General Surgery consulted - Hao HAY. hepatic drains placed anterior and posteriorly. Fluid sent for culture. GI following - colonoscopy planned for Wednesday Will need caloric increase prior to surgery, possible need for tube feeds or TPN. Continue Metronidazole and Levaquin IVPB. Blood cultures pending. tolerating full liquid diet continue PPI. Zofran PRN. continue pain management if abdominal pain returns. continue to monitor labs. (2) Weight loss: Code(s): R63.4 - Abnormal weight loss Status: Acute Assessment and Plan: likely related to possible metastatic mass on liver and lack of intake r/t pain dietary consulted - will need supplementation and possible TPN, tube feeds prior to surgical intervention if needed (3) Anemia: Qualifiers: Anemia type: unspecified type Qualified Code(s): D64.9 - Anemia, unspecified Code(s): D64.9 - Anemia, unspecified Status: Acute Assessment and Plan: H&H stable for now, continue to monitor no obvious signs of bleed will continue to monitor iron supplementation if needed (4) Marijuana abuse, continuous: Code(s): F12.10 - Cannabis abuse, uncomplicated Status: Acute Assessment and Plan: daily use for pain control r/t arthritis, does not like to take oral medication for pain control. no other drug or tobacco use reported. Plan Home Meds/Chronic Conditions - no daily medications Diet: full liquid GI Prophylaxis: Pantoprazole q.12 DVT Prophylaxis: SCDs, hold on pharm due to possible procedures Lines: pIV Code Status: Full Code, does not want prolonged ventilation or per minute G-tube ( feeding tube ). He is okay with a temporary NG or OG. Subjective Date/time seen: 01/16/23 13:22 Interval history: Patient is sitting up in bed this morning in no acute distress. He denies abdominal pain this morning and his discomfort improved substantially after the drains were put in yesterday. He felt hungry this morning and is tolerating a full liquid diet. His drains are clean, dry and intact and patent. Recently emptied so there was no fluid in the bags this am. GI, Gen surgery following. Will continue IV antibiotics and replace potassium. Will plan to have colonoscopy on Wednesday. Review of Systems Review of Systems: All systems reviewed & are unremarkable except as noted in HPI and below Exam Const: General: comfortable and no acute distress Other: +emaciation. HENMT: Face/Nose/Sinus: Normal nares present Mouth: Yes dry mucous membranes Eyes: General: appearance normal, both eyes and all related structures Sclera: sclerae normal Pupils: Equal, round and reactive pupils present EOM: EOMs intact bilaterally Resp: Effort & Inspection: normal respiratory effort Auscultation: clear to auscultation bilaterally Cardio: Rate: regular rate Rhythm: regular rhythm Other: S1-S2 present without murmur, rub, ectopy. GI: Other: no tenderness with light or deep palpation
[2023-01-16 14:00] VITALS: BP 114/63; PULSE 90; RESP 20; TEMP 37.3; O2SAT 99
[2023-01-16 16:25] LABS: Potassium 3.3 mmol/L (3.4-5.0)
[2023-01-16 22:00] VITALS: BP 124/71; PULSE 77; RESP 16; TEMP 37.1; O2SAT 98
[2023-01-17] MEDS: metroNIDAZOLE 500 MG/ISO 100ML 500 MG/100 ML BAG 100 MG IVPB ×5 (00:36→23:23)
[2023-01-17] MEDS: SODIUM CHLORIDE 0.9% IV 1,000 ML 150 ML IV CONT ×4 (00:37→20:14)
[2023-01-17 06:00] VITALS: BP 120/71; PULSE 73; RESP 16; TEMP 36.9; O2SAT 99
[2023-01-17 07:52] LABS: Basophils Percent Auto 0.2 % (0.2-1.2); Eosinophils Absolute Auto 0.1 K/mm3 (0-0.3); Eosinophils Percent Auto 1.2 % (0-4.4); Hematocrit 30.5 % (42.0-52.0); Hemoglobin 9.9 g/dL (14.0-18.0); Immature Granulocyte Absolute 0.04 K/mm3 (0.00-0.031); Immature Granulocyte Percent A 0.4 % (0-0.5); Lymphocytes Absolute Auto 0.99 K/mm3 (0.9-3.2); Lymphocytes Percent Auto 9.1 % (18.3-44.2); Mean Corpuscular HGB Conc 32.5 g/dl (32-36); Mean Corpuscular Hemoglobin 29.4 pg (26-34); Mean Corpuscular Volume 90.5 fl (80-100); Mean Platelet Volume 9.2 fl (7.4-10.4); Monocytes Absolute Auto 0.8 K/mm3 (0.1-0.6); Monocytes Percent Auto 7.2 % (2.6-8.5); Neutrophils Absolute Auto 8.9 K/mm3 (1.3-6.7); Neutrophils Percent Auto 81.9 % (45.5-73.1); Platelet Count Result 315 k/mm3 (150-375); Red Blood Count 3.37 M/mm3 (4.6-6.20); Red Cell Distribution Width 14.2 % (11.5-14.5); White Blood Count 10.9 K/mm3 (4.5-10.0)
[2023-01-17 08:15] LABS: Anion Gap 3 mmol/L (8-16); Blood Urea Nitrogen 9 mg/dL (9-20); Calcium 7.4 mg/dL (8.4-10.2); Carbon Dioxide 28 mmol/L (22-30); Chloride 104 mmol/L (98-107); Estimated CRCL calculation 59 ml/min; Estimated Glomerular Filt Rate > 60; Glucose 82 mg/dL (65-110); Potassium 3.1 mmol/L (3.4-5.0); Sodium 135 mmol/L (137-145)
[2023-01-17] MEDS: PANTOPRAZOLE SODIUM IV 40 MG VIAL IV PUSH ×2 (08:36→20:14)
[2023-01-17] MEDS: POTASSIUM CHLORIDE 20 MEQ PACKET (FOR LIQUID) 40 MEQ PO (08:36)
[2023-01-17] MEDS: cefTRIAXone 2 GM/NS 100 ML 2 GM/100 ML BAG IVPB (11:10)
--- NOTE | 2023-01-17 11:44 | P.PNIM_ITS ---
Progress Note: A&P Assessment and Plan (1) Emphysematous cholecystitis: Code(s): K81.0 - Acute cholecystitis Status: Acute Assessment and Plan: * CT abd/pelvis (01/12) - Dilated gallbladder with gas involving the gallbladder wall as well as air-fluid level in the gallbladder, suspicious for an emphysematous cholecystitis. There is gas extending into the biliary tract with possible perforation along the inferior medial margin of the gallbladder, suspicious for perforation with abscess. There is free air along the liver margin inferiorly and anteriorly. * US of abdomen (01/14) - 1: Complex heterogeneous appearance to the liver including masses of the left hepatic lobe measuring up to 3 cm. Cannot exclude metastatic disease. 2: Thickened gallbladder containing sludge and pericholecystic fluid. There is fluid adjacent to the gallbladder which may represent bowel, although abscess is not excluded. * General Surgery consulted - Hao HAY. * hepatic drains placed anterior and posteriorly. Fluid sent for culture. * prelim results showing Streptococcus anginosus/cons, added Rocephin for coverage * possibly consider adding Vanc in the future * GI following - colonoscopy planned for Wednesday * Will need caloric increase prior to surgery, possible need for tube feeds or TPN. * Continue Metronidazole and Levaquin IVPB. * Blood cultures pending. * tolerating regular diet * continue PPI. Zofran PRN. * continue pain management if abdominal pain returns. * continue to monitor labs. (2) Weight loss: Code(s): R63.4 - Abnormal weight loss Status: Acute Assessment and Plan: * likely related to possible metastatic mass on liver and lack of intake r/t pa in * dietary consulted - will need supplementation and possible TPN, tube feeds prior to surgical intervention if needed (3) Anemia: Qualifiers: Anemia type: unspecified type Qualified Code(s): D64.9 - Anemia, unspecified Code(s): D64.9 - Anemia, unspecified Status: Acute Assessment and Plan: * H&H stable for now, continue to monitor * no obvious signs of bleed * will continue to monitor * iron supplementation if needed (4) Marijuana abuse, continuous: Code(s): F12.10 - Cannabis abuse, uncomplicated Status: Acute Assessment and Plan: * daily use for pain control r/t arthritis, does not like to take oral medication for pain control. * no other drug or tobacco use reported. Plan Home Meds/Chronic Conditions - no daily medications Diet: full liquid GI Prophylaxis: Pantoprazole q.12 DVT Prophylaxis: SCDs, hold on pharm due to possible procedures Lines: pIV Code Status: Full Code, does not want prolonged ventilation or per minute G-tube ( feeding tube ). He is okay with a temporary NG or OG. Subjective Date/time seen: 01/17/23 11:44 Interval history: Patient is sitting up in bed this morning in no acute distress. He denies abdominal pain this morning and has been tolerating a regular diet since last night. His drains are clean, dry and intact and patent. GI, Gen surgery following. Will continue IV antibiotics, added on rocephin to cover for strep prelim results in micro culture and replace potassium. Will plan to have colonoscopy on Wednesday. Review of Systems Review of Systems: All systems reviewed & are unremarkable except as noted in HPI and below Exam Const: General: comfortable and no acute distress Other:
--- NOTE | 2023-01-17 11:44 | PM.IMPN ---
Progress Note: A&P Assessment and Plan (1) Emphysematous cholecystitis: Code(s): K81.0 - Acute cholecystitis Status: Acute Assessment and Plan: CT abd/pelvis (01/12) - Dilated gallbladder with gas involving the gallbladder wall as well as air-fluid level in the gallbladder, suspicious for an emphysematous cholecystitis. There is gas extending into the biliary tract with possible perforation along the inferior medial margin of the gallbladder, suspicious for perforation with abscess. There is free air along the liver margin inferiorly and anteriorly. US of abdomen (01/14) - 1: Complex heterogeneous appearance to the liver including masses of the left hepatic lobe measuring up to 3 cm. Cannot exclude metastatic disease. 2: Thickened gallbladder containing sludge and pericholecystic fluid. There is fluid adjacent to the gallbladder which may represent bowel, although abscess is not excluded. General Surgery consulted - Hao HAY. hepatic drains placed anterior and posteriorly. Fluid sent for culture. prelim results showing Streptococcus anginosus/cons, added Rocephin for coverage possibly consider adding Vanc in the future GI following - colonoscopy planned for Wednesday Will need caloric increase prior to surgery, possible need for tube feeds or TPN. Continue Metronidazole and Levaquin IVPB. Blood cultures pending. tolerating regular diet continue PPI. Zofran PRN. continue pain management if abdominal pain returns. continue to monitor labs. (2) Weight loss: Code(s): R63.4 - Abnormal weight loss Status: Acute Assessment and Plan: likely related to possible metastatic mass on liver and lack of intake r/t pain dietary consulted - will need supplementation and possible TPN, tube feeds prior to surgical intervention if needed (3) Anemia: Qualifiers: Anemia type: unspecified type Qualified Code(s): D64.9 - Anemia, unspecified Code(s): D64.9 - Anemia, unspecified Status: Acute Assessment and Plan: H&H stable for now, continue to monitor no obvious signs of bleed will continue to monitor iron supplementation if needed (4) Marijuana abuse, continuous: Code(s): F12.10 - Cannabis abuse, uncomplicated Status: Acute Assessment and Plan: daily use for pain control r/t arthritis, does not like to take oral medication for pain control. no other drug or tobacco use reported. Plan Home Meds/Chronic Conditions - no daily medications Diet: full liquid GI Prophylaxis: Pantoprazole q.12 DVT Prophylaxis: SCDs, hold on pharm due to possible procedures Lines: pIV Code Status: Full Code, does not want prolonged ventilation or per minute G-tube ( feeding tube ). He is okay with a temporary NG or OG. Subjective Date/time seen: 01/17/23 11:44 Interval history: Patient is sitting up in bed this morning in no acute distress. He denies abdominal pain this morning and has been tolerating a regular diet since last night. His drains are clean, dry and intact and patent. GI, Gen surgery following. Will continue IV antibiotics, added on rocephin to cover for strep prelim results in micro culture and replace potassium. Will plan to have colonoscopy on Wednesday. Review of Systems Review of Systems: All systems reviewed & are unremarkable except as noted in HPI and below Exam Const: General: comfortable and no acute distress Other: +emaciation. HENMT: Face/Nose/Sinus: Normal nares present Mouth: Yes dry mucous membranes Eyes: General: appearance normal, both eyes and all related structures Sclera: sclerae normal Pupils: Equal, round and reactive pupils present EOM: EOMs intact bilaterally Neck: Neck: supple Resp: Effort & Inspection: normal respiratory effort Auscultation: clear to auscultation bilaterally Cardio: Rate: regular rate Rhythm: regular rhythm Other: S1-S2 present without murmur, rub, ec
--- NOTE | 2023-01-17 11:48 | PM.PNGS ---
Progress Note: A&P Assessment and Plan (1) Hepatic abscess: Code(s): K75.0 - Abscess of liver Status: Acute Assessment and Plan: Doing well after percutaneous drain placement 01/15. Continue IV antibiotics. (2) Protein-calorie malnutrition, severe: Code(s): E43 - Unspecified severe protein-calorie malnutrition Status: Acute Assessment and Plan: Encourage PO intake. Patient with low BMI and unintentional weight loss suspicious for cancer. (3) Emphysematous cholecystitis: Code(s): K81.0 - Acute cholecystitis Status: Acute Assessment and Plan: This diagnosis less certain than it was on the noncontrast CT scans. May not have cholecystitis at all. (4) Neoplasm of ascending colon: Code(s): D49.0 - Neoplasm of unspecified behavior of digestive system Status: Acute Assessment and Plan: Continue workup per GI. Probable colonoscopy Wednesday. (5) Weight loss: Code(s): R63.4 - Abnormal weight loss Status: Acute Assessment and Plan: Likely due to metastatic cancer that may have liver Mets and and abdominal wall metastasis. Primary appears to be cecum. Subjective Subjective Date/Time Seen: 01/17/23 11:48 Interval history: No abdominal pain. Tolerating diet. No fevers. Exam GI: Inspection: distended GI Palp: Yes Soft to palpation, No Tenderness to palpation present (GI) and No Guarding due to palpation present (GI) Auscultation: normal bowel sounds Other: Pigtail drains with minimal purulent output. Objective Data Vital Signs Vital Signs: Vital Signs - 24 hr 01/16/23 14:00 01/16/23 22:00 01/17/23 06:00 Temperature 37.3 C 37.1 C 36.9 C Pulse Rate 90 77 73 Respiratory Rate 20 16 16 Blood Pressure 114/63 124/71 120/71 Pulse Oximetry 99 98 99 Oxygen Delivery 01/17/23 08:00 Temperature Pulse Rate Respiratory Rate Blood Pressure Pulse Oximetry Oxygen Delivery Room Air Intake/Output Intake/Output: Intake & Output 01/14/23 01/15/23 01/16/23 01/17/23 23:59 23:59 23:59 23:59 Intake Total 1870 2660 5240 3680 Output Total 75 825 Balance 1870 2660 5165 2854 Meds/Results Medications: Active Medications Generic Name Dose Route Start Last Admin Trade Name Freq PRN Reason Stop Dose Admin Acetaminophen 500 mg 01/14/23 21:33 Acetaminophen 500 Mg Tablet PO Q6H PRN Mild Pain (1-3) or Fever Dextrose 12.5 gm 01/15/23 09:19 Dextrose 50% 25 Gm/50 Ml Syringe IV PUSH PRN PRN Hypoglycemia Protocol Diphenhydramine HCl 50 mg 01/17/23 10:32 Diphenhydramine Hcl Cap 25 Mg Capsule PO Q6H PRN Itching Glucagon 1 mg 01/15/23 09:19 Glucagon For Inj 1 Mg Vial IM PRN PRN Hypoglycemia Protocol Hydromorphone HCl 0.5 mg 01/14/23 13:28 Hydromorphone Hcl Inj (*Crx) 1 Mg/Ml Syr IV PUSH Q4H PRN Pain Rated 7-10 Levofloxacin/Dextrose 750 mg in 150 mls @ 100 mls/hr 01/16/23 09:00 01/16/23 10:27 Levaquin 750 Mg/D5w 150 Ml IVPB Infused Q48H KULDIP Infusion Metronidazole 500 mg in 100 mls @ 100 mls/hr 01/14/23 18:00 01/17/23 11:12 Flagyl 500 Mg/Iso Soln 100 Ml IVPB 0 mls/hr Q6H KULDIP Infusion Sodium Chloride 1,000 mls @ 150 mls/hr 01/14/23 13:30 01/17/23 11:12 Normal Saline Iv IV CONT 0 mls/hr .Q6H40M KULDIP Infusion Dextrose 1,000 mls @ 100 mls/hr 01/15/23 09:19 Dextrose 5% 1,000 Ml IVPB PRN PRN Hypoglycemia Protocol Ceftriaxone Sodium 2 gm in 100 mls @ 200 mls/hr 01/17/23 10:45 01/17/23 11:10 Rocephin 2 Gm/Ns 100 Ml IVPB 200 mls/hr DAILY@0900 KULDIP Administration Ondansetron HCl 4 mg 01/14/23 21:33 01/15/23 20:45 Ondansetron Inj 4 Mg/2 Ml Vial IV PUSH 4 mg Q4H PRN Administration Nausea And Vomiting Pantoprazole Sodium 40 mg 01/15/23 09:00 01/17/23 08:36 Pantoprazole Sodium Iv 40 Mg Vial IV PUSH 40 mg Q12HR KULDIP Administration Polyethylene
[2023-01-17] MEDS: polyethylene glycoL 3350 238 GM BOTTLE PO (12:55)
[2023-01-17 14:00] VITALS: BP 127/78; PULSE 78; RESP 20; TEMP 36.4; O2SAT 98
[2023-01-17] MEDS: ONDANSETRON INJ 4 MG/2 ML VIAL IV PUSH (16:24)
[2023-01-17 21:34] VITALS: BP 134/85; PULSE 74; RESP 18; TEMP 36.9; O2SAT 99
[2023-01-18] VITALS (7 sets, daily range): BP systolic 97–131; BP diastolic 56–95; PULSE 64–75; RESP 13–27; TEMP 36.5–37; O2SAT 92–100
[2023-01-18] MEDS: metroNIDAZOLE 500 MG/ISO 100ML 500 MG/100 ML BAG 100 MG IVPB ×4 (05:16→23:02)
[2023-01-18] MEDS: SODIUM CHLORIDE 0.9% IV 1,000 ML 150 ML IV CONT ×2 (06:40→22:40)
[2023-01-18 07:55] LABS: Hematocrit 32.6 % (42.0-52.0); Hemoglobin 10.1 g/dL (14.0-18.0); Mean Corpuscular Hemoglobin 28.1 pg (26-34); Mean Corpuscular Volume 90.8 fl (80-100); Mean Platelet Volume 9.4 fl (7.4-10.4); Platelet Count Result 344 k/mm3 (150-375); Red Blood Count 3.59 M/mm3 (4.6-6.20); Red Cell Distribution Width 14.1 % (11.5-14.5); White Blood Count 10.6 K/mm3 (4.5-10.0)
[2023-01-18 08:06] LABS: Anion Gap 3 mmol/L (8-16); Blood Urea Nitrogen 6 mg/dL (9-20); Carbon Dioxide 29 mmol/L (22-30); Chloride 103 mmol/L (98-107); Estimated CRCL calculation 59 ml/min; Estimated Glomerular Filt Rate > 60; Glucose 83 mg/dL (65-110); Potassium 2.7 mmol/L (3.4-5.0); Sodium 135 mmol/L (137-145)
[2023-01-18] MEDS: cefTRIAXone 2 GM/NS 100 ML 2 GM/100 ML BAG IVPB (08:09)
[2023-01-18] MEDS: PANTOPRAZOLE SODIUM IV 40 MG VIAL IV PUSH ×2 (08:09→20:46)
[2023-01-18] MEDS: levoFLOXacin 750 MG/D5W 150 ML 750 MG/150 ML BAG 100 MG IVPB (08:44)
[2023-01-18] MEDS: POTASSIUM CHLORIDE INJ 40 MEQ in SODIUM CHLORIDE 0.9% IV 500 ML 130 MEQ IVPB (08:44)
--- NOTE | 2023-01-18 11:34 | PCNFU ---
Nutrition Follow-Up Complete: Severe malnutrition related to chronic cancer as evidenced by weight loss 13%/6 months; NFPE findings of severe fat loss and moderate muscle loss. Goal:Adequate PO intake when diet is advanced Pt currently NPO again for a procedure Pt current nutrition is NPO, was regular. Nutrition recommendation: resume diet post procedure Last recorded weight is 51 kg. Bowel Motility: +BM 01/18 Labs Reviewed: Hgb:10.1, Hct:32.6, Na:135, K:2.7 Meds Noted: zofran, KCL, protonix Skin: wnl Additional Notes: Pt NPO today for a colonoscopy. Was on a regular diet, reports is incredibly hungry and wants to eat. Eats well usually and ate well on regular diet. Does not want any supplements. Monitoring for diet advancement, intakes, weights, labs, plan of care Follow up in 3 days
[2023-01-18 12:05] LABS: Glucose Point of Care 89 mg/dl (65-105)
[2023-01-18] MEDS: LACTATED RINGERS 1,000 ML 150 ML IV CONT (13:02)
--- NOTE | 2023-01-18 13:17 | P.CDI_ITS ---
CDI Query Clarification Request BMI 17.1 Nutritional diagnostic Statement Severe malnutrition related to chronic cancer as evidenced by weight loss 13%/6 months; NFPE findings of severe fat loss and moderate muscle loss. Please refer to the comprehensive nutrition assessment for further information. Please clarify severity of protein calorie malnutrition if known: * Mild * Moderate * Severe * Other/Unspecified <Randi Carroll RN - Last Filed: 01/18/23 13:22> Clarified Diagnosis Clarified Diagnosis: severe <Елена Lau APRN - Last Filed: 01/18/23 13:30> Provider Comments This was charted by dietary in their note, not mine. <Елена Lau APRN - Last Filed: 01/18/23 13:30>
--- NOTE | 2023-01-18 13:17 | WPDANESEPPF ---
Anes - Initial Pre Proc Eval Procedure: Operation Date: 01/15/23 15:00 Proposed Procedures p Computed Tomography Guided Abscess Catheter Placement - Osiel Colunga MD Operation Date: 01/15/23 15:30 Proposed Procedures p Esophagogastroduodenoscopy - Mehdi Ramon MD Operation Date: 01/18/23 14:30 Proposed Procedures p Colonoscopy - Jose Zimmerman MD Date/Time: 01/18/23 13:17 Surgeon: Magnolia Black MD Pre Op Diagnosis: emphysematous cholecystitis Patient Data Age: 62 Gender: M Height: 1.73 m Weight: 51 kg Last Vital Signs Temp 97.7 F 01/18/23 13:04 Pulse 75 01/18/23 13:04 Resp 16 01/18/23 13:04 BP 130/69 01/18/23 13:04 Pulse Ox 100 01/18/23 13:04 O2 Del Method Room Air 01/18/23 13:04 O2 Flow Rate 2 01/15/23 16:30 Allergies Allergy/AdvReac Type Severity Reaction Status Date / Time Penicillins Allergy Mild rash Verified 01/18/23 13:03 Home Medications Medication Instructions Recorded Confirmed Type ciprofloxacin HCl 500 mg tablet 500 mg PO Q12H 7 days #14 tabs 01/13/23 01/14/23 Rx metronidazole 500 mg tablet 500 mg PO Q8H 7 days #21 tabs 01/13/23 01/14/23 Rx Laboratory Tests 01/18/23 01/18/23 07:09 11:59 WBC 10.6 H K/mm3 (4.5-10.0) RBC 3.59 L M/mm3 (4.6-6.20) Hgb 10.1 L g/dL (14.0-18.0) Hct 32.6 L % (42.0-52.0) MCV 90.8 fl (80-100) MCH 28.1 pg (26-34) MCHC 31.0 L g/dl (32-36) RDW 14.1 % (11.5-14.5) Plt Count 344 k/mm3 (150-375) MPV 9.4 fl (7.4-10.4) Sodium 135 L mmol/L (137-145) Potassium 2.7 L* mmol/L (3.4-5.0) Chloride 103 mmol/L (98-107) Carbon Dioxide 29 mmol/L (22-30) Anion Gap 3 L mmol/L (8-16) BUN 6 L mg/dL (9-20) Creatinine 0.80 mg/dL (0.7-1.3) Estim Creat Clear Calc 59 ml/min Estimated GFR > 60 (59 - ) Glucose 83 mg/dL (65-110) POC Capillary Glucose 89 mg/dl (65-105) Calcium 7.0 L mg/dL (8.4-10.2) Patient hx anesthesia problems: none Family hx anesthesia problems: none Results Review: All pre-operative results and documents have been reviewed as part of the pre-operative evaluation. [facility] Past Medical History Medical History Anemia History of tobacco abuse Marijuana abuse, continuous used for pain control r/t arthritis Osteoarthritis Surgical History Surgical History No pertinent past surgical history Family History Family History Father Cancer, Onset Age: 58 unclear primary source, was metastatic at time of diagnosis and was shortly after discovered Acute myocardial infarction, Onset Age: 58 Sibling Cancer brother, not close with family. unknown type. Sibling Cancer brother, colon cancer. Social History Social History Social History: Currently lives in [facility] in [place]. Lives alone with dogs. . Elects family friend, Jamie Sands, as surrogate decision maker. Code Status: Full Code, requesting no prolonged ventilation or permanent G-tube. Okay with temporary NG/OG. Smoking packs per day: 3 Smoking cigarettes per day: 60.0 Years smoked: 18 Smoking pack-years: 54.00 Smoking status: Former smoker Tobacco type: cigarettes Second hand tobacco smoke exposure: No Alcohol intake: never Substance use: current Substance use type: marijuana Other substance usage details: DAILY-MARIJUANA Lack of Transportation: No Lack of Food: Never True Current Housing: I Have Housing Concerned About Future Housing: No Difficulty Paying Gas/Electric Bills: No Difficulty Paying for Meds: No Currently Unemployed: No Education: Decline
--- NOTE | 2023-01-18 15:07 | PM.IMPN ---
Progress Note: A&P Assessment and Plan (1) Emphysematous cholecystitis: Code(s): K81.0 - Acute cholecystitis Status: Acute Assessment and Plan: CT abd/pelvis (01/12) - Dilated gallbladder with gas involving the gallbladder wall as well as air-fluid level in the gallbladder, suspicious for an emphysematous cholecystitis. There is gas extending into the biliary tract with possible perforation along the inferior medial margin of the gallbladder, suspicious for perforation with abscess. There is free air along the liver margin inferiorly and anteriorly. US of abdomen (01/14) - 1: Complex heterogeneous appearance to the liver including masses of the left hepatic lobe measuring up to 3 cm. Cannot exclude metastatic disease. 2: Thickened gallbladder containing sludge and pericholecystic fluid. There is fluid adjacent to the gallbladder which may represent bowel, although abscess is not excluded. General Surgery following hepatic drains placed anterior and posteriorly. Fluid sent for culture. prelim results showing Streptococcus anginosus/cons, added Rocephin for coverage d/c Levaquin today per I&D GI following - colonoscopy done today colonic polyps removed and sent to pathology Will need caloric increase prior to surgery, possible need for tube feeds or TPN. Continue Metronidazole and Rocephin IV. Blood cultures pending. tolerating regular diet continue PPI. Zofran PRN. continue pain management if abdominal pain returns. continue to replace potassium PO and IV (2) Weight loss: Code(s): R63.4 - Abnormal weight loss Status: Acute Assessment and Plan: likely related to possible metastatic mass on liver and lack of intake r/t pain dietary consulted - will need supplementation and possible TPN, tube feeds prior to surgical intervention if needed (3) Anemia: Qualifiers: Anemia type: unspecified type Qualified Code(s): D64.9 - Anemia, unspecified Code(s): D64.9 - Anemia, unspecified Status: Acute Assessment and Plan: H&H stable for now, continue to monitor no obvious signs of bleed will continue to monitor iron supplementation if needed (4) Marijuana abuse, continuous: Code(s): F12.10 - Cannabis abuse, uncomplicated Status: Acute Assessment and Plan: daily use for pain control r/t arthritis, does not like to take oral medication for pain control. no other drug or tobacco use reported. Plan Home Meds/Chronic Conditions - no daily medications Diet: regular GI Prophylaxis: Pantoprazole q.12 DVT Prophylaxis: SCDs, hold on pharm due to possible procedures Lines: pIV Code Status: Full Code, does not want prolonged ventilation or per minute G-tube ( feeding tube ). He is okay with a temporary NG or OG. Subjective Date/time seen: 01/18/23 15:07 Interval history: Patient is sitting up in bed this morning in no acute distress. He denies abdominal pain this morning and has been tolerating a regular diet since yesterday. He is hungry but NPO at time of exam for colonoscopy this afternoon. His drains are clean, dry and intact and patent. GI, Gen surgery following. Will continue IV antibiotics, added on rocephin to cover for strep prelim results in micro culture and replace potassium. D/C Levaquin today per I&D pharm consult. Continue to monitor. Review of Systems Review of Systems: All systems reviewed & are unremarkable except as noted in HPI and below Exam Const: General: comfortable and no acute distress Other: +emaciation. HENMT: Face/Nose/Sinus: Normal nares present Mouth: Yes dry mucous membranes Eyes: General: appearance normal, both eyes and all related structures Pupils: Equal, round and reactive pupils present EOM: EOMs intact bilaterally Neck: Neck: supple Resp: Effort & Inspection: normal respiratory effort Auscultation: clear to auscultation bilaterally Cardio: Rate: regula
--- NOTE | 2023-01-18 15:28 | PM.PNGS ---
Progress Note: A&P Assessment and Plan (1) Hepatic abscess: Code(s): K75.0 - Abscess of liver Status: Acute Assessment and Plan: Abdominal pain improved after percutaneous drains placed. Minimal output. Continue IV antibiotics and monitor drains. (2) Protein-calorie malnutrition, severe: Code(s): E43 - Unspecified severe protein-calorie malnutrition Status: Acute Assessment and Plan: He was tolerating a diet but made NPO for colonoscopy. Resume diet following his procedure. (3) Emphysematous cholecystitis: Code(s): K81.0 - Acute cholecystitis Status: Acute Assessment and Plan: This diagnosis less certain than it was on the noncontrast CT scans. May not have cholecystitis at all. (4) Neoplasm of ascending colon: Code(s): D49.0 - Neoplasm of unspecified behavior of digestive system Status: Acute Assessment and Plan: Colonoscopy today showed a 3 cm mass at the ileocecal valve as well as multiple polyps. Biopsies taken. (5) Weight loss: Code(s): R63.4 - Abnormal weight loss Status: Acute Assessment and Plan: Likely due to metastatic cancer that may have liver Mets and abdominal wall metastasis. Will await biopsy results. Plan I have discussed the patient's case and plan of care with Dr. Bui. Subjective Subjective Date/Time Seen: 01/18/23 11:28 Interval history: Chart reviewed since last seen. Patient s/p perc drain placement x 2. Denies any abdominal pain at this time. Patient seen before taken down for his colonoscopy today. Exam Const: General: comfortable and no acute distress Nutritional Appearance: cachectic and malnourished Orientation/consciousness: patient oriented x3 GI: Inspection: non-distended and scaphoid GI Palp: Yes Firmness to palpation present (GI) (slightly firm in RLQ and RUQ), Yes Tenderness to palpation present (GI) (minimal RUQ tenderness), No Guarding due to palpation present (GI) and No Rebound tenderness present Auscultation: normal bowel sounds Other: percutaneous drains with minimal purulent drainage Objective Data Vital Signs Vital Signs: Vital Signs - 24 hr 01/17/23 21:34 01/18/23 06:00 01/18/23 08:00 Temperature 98.5 F 98.3 F Pulse Rate 74 66 Respiratory Rate 18 18 Blood Pressure 134/85 131/81 Pulse Oximetry 99 98 Oxygen Delivery Room Air 01/18/23 13:04 01/18/23 14:02 01/18/23 14:09 Temperature 97.7 F Pulse Rate 75 72 70 Respiratory Rate 16 15 13 Blood Pressure 130/69 97/95 L 99/56 L Pulse Oximetry 100 97 99 Oxygen Delivery Room Air Room Air Room Air 01/18/23 14:23 01/18/23 14:00 Temperature 98.0 F Pulse Rate 64 66 Respiratory Rate 27 H 20 Blood Pressure 121/67 130/79 Pulse Oximetry 100 100 Oxygen Delivery Room Air Intake/Output Intake/Output: Intake & Output 01/15/23 01/16/23 01/17/23 01/18/23 23:59 23:59 23:59 23:59 Intake Total 2660 5279 5460 2750 Output Total 75 825 Balance 2660 8777 0342 3630 Meds/Results Medications: Active Medications Generic Name Dose Route Start Last Admin Trade Name Freq PRN Reason Stop Dose Admin Acetaminophen 500 mg 01/14/23 21:33 Acetaminophen 500 Mg Tablet PO Q6H PRN Mild Pain (1-3) or Fever Dextrose 12.5 gm 01/15/23 09:19 Dextrose 50% 25 Gm/50 Ml Syringe IV PUSH PRN PRN Hypoglycemia Protocol Diphenhydramine HCl 50 mg 01/17/23 10:32 Diphenhydramine Hcl Cap 25 Mg Capsule PO Q6H PRN Itching Glucagon 1 mg 01/15/23 09:19 Glucagon For Inj 1 Mg Vial IM PRN PRN Hypoglycemia Protocol Hydromorphone HCl 0.5 mg 01/14/23 13:28 Hydromorphone Hcl Inj (*Crx) 1 Mg/Ml Syr IV PUSH Q4H PRN Pain Rated 7-10 Metronidazole 500 mg in 100 mls @ 100 mls/hr 01/14/23 18:00 01/18/23 12:12 Flagyl 500 Mg/Iso Soln 100 Ml IVPB Infused Q6H KULDIP Infusion Sodium Chloride 1,000 mls @ 150 mls/hr 01/14/23 13:30
[2023-01-18] MEDS: POTASSIUM CHLORIDE 20 MEQ PACKET (FOR LIQUID) 40 MEQ PO (15:43)
[2023-01-19] MEDS: ONDANSETRON INJ 4 MG/2 ML VIAL IV PUSH (01:14)
[2023-01-19] MEDS: SODIUM CHLORIDE 0.9% IV 1,000 ML 150 ML IV CONT ×3 (05:32→21:09)
[2023-01-19] MEDS: metroNIDAZOLE 500 MG/ISO 100ML 500 MG/100 ML BAG 100 MG IVPB ×3 (05:32→17:35)
[2023-01-19 06:00] VITALS: BP 141/71; PULSE 69; RESP 18; TEMP 36.9; O2SAT 99
[2023-01-19 07:47] LABS: Basophils Percent Auto 0.2 % (0.2-1.2); Eosinophils Absolute Auto 0.1 K/mm3 (0-0.3); Eosinophils Percent Auto 0.5 % (0-4.4); Hematocrit 31.4 % (42.0-52.0); Hemoglobin 10.2 g/dL (14.0-18.0); Immature Granulocyte Absolute 0.06 K/mm3 (0.00-0.031); Immature Granulocyte Percent A 0.6 % (0-0.5); Lymphocytes Absolute Auto 1.12 K/mm3 (0.9-3.2); Lymphocytes Percent Auto 11.4 % (18.3-44.2); Mean Corpuscular HGB Conc 32.5 g/dl (32-36); Mean Corpuscular Volume 89.2 fl (80-100); Mean Platelet Volume 9.7 fl (7.4-10.4); Monocytes Absolute Auto 0.8 K/mm3 (0.1-0.6); Monocytes Percent Auto 7.6 % (2.6-8.5); Neutrophils Absolute Auto 7.9 K/mm3 (1.3-6.7); Neutrophils Percent Auto 79.7 % (45.5-73.1); Platelet Count Result 309 k/mm3 (150-375); Red Blood Count 3.52 M/mm3 (4.6-6.20); Red Cell Distribution Width 14.4 % (11.5-14.5); White Blood Count 9.9 K/mm3 (4.5-10.0)
[2023-01-19 08:14] LABS: Anion Gap 2 mmol/L (8-16); Blood Urea Nitrogen 6 mg/dL (9-20); Carbon Dioxide 28 mmol/L (22-30); Chloride 104 mmol/L (98-107); Estimated CRCL calculation 59 ml/min; Estimated Glomerular Filt Rate > 60; Glucose 93 mg/dL (65-110); Potassium 2.6 mmol/L (3.4-5.0); Sodium 134 mmol/L (137-145)
[2023-01-19] MEDS: POTASSIUM CHLORIDE 20 MEQ PACKET (FOR LIQUID) 40 MEQ PO (08:24)
[2023-01-19] MEDS: cefTRIAXone 2 GM/NS 100 ML 2 GM/100 ML BAG IVPB (08:30)
[2023-01-19] MEDS: PANTOPRAZOLE SODIUM IV 40 MG VIAL IV PUSH ×2 (08:30→21:09)
[2023-01-19] MEDS: POTASSIUM CHLORIDE INJ 40 MEQ in SODIUM CHLORIDE 0.9% IV 500 ML 130 MEQ IVPB (09:53)
--- NOTE | 2023-01-19 11:32 | PM.PNGS ---
Progress Note: A&P Assessment and Plan (1) Colon polyps: Qualifiers: Colon polyp type: adenomatous Colon location: unspecified part of colon Qualified Code(s): D12.6 - Benign neoplasm of colon, unspecified Code(s): K63.5 - Polyp of colon Status: Acute Assessment and Plan: Multiple colon polyps were found on colonoscopy yesterday. Pathology today does not show malignancy in any of the polyps. The rectal and sigmoid colon polyps were all removed and are benign adenomas. The path report suggests 4 transverse colon polyps but, per the colonoscopy report, these are more likely multiple biopsies of a distal transverse colon 4 cm polyp. All of the biopsies show tubular adenoma. The location of the distal transverse colon polyp was tattooed. Ascending colon polyps were also removed and showed tubular adenomas. There was a 3 cm polyp in the ileocecal valve which was also biopsied but not removed. Pathology showed tubular adenoma. CT scan done earlier showed appendix to be dilated. This polyp could be associated with that abnormality with the appendix on imaging. Patient currently nauseated after large meal yesterday. Not hungry at all this morning. Does not seem distended but I am concerned that the ileocecal valve polyp may be causing partial obstruction. It is surprising that none of these polyps showed a malignancy. (2) Hepatic abscess: Code(s): K75.0 - Abscess of liver Status: Acute Assessment and Plan: Perihepatic abscesses seemed to be well drained. Not sure if these are related to cholecystitis and possibly gallbladder perforation. We will get HIDA scan today. Suspect abnormal lesions in the liver are abscesses or due to infection rather than malignancy with the colonoscopy results. May need repeat CT scan status post abscess drainage and antibiotic therapy. (3) Protein-calorie malnutrition, severe: Code(s): E43 - Unspecified severe protein-calorie malnutrition Status: Acute Assessment and Plan: Has been eating pretty well while in hospital. Today was the 1st time I have heard him voice concerns over nausea and poor appetite. (4) Weight loss: Code(s): R63.4 - Abnormal weight loss Status: Chronic Assessment and Plan: Lost 50 lb in the last year unintentionally. Does not appear to be due to malignancy as all polyps were adenomatous and benign and CEA level is normal. Subjective Subjective Date/Time Seen: 01/19/23 11:32 Patient reports: bowel movement, nausea (Thinks he over ate last night after eating 2 suppers. Unable to eat anything this morning. No emesis) and afebrile Review of Systems Review of Systems: All systems reviewed & are unremarkable except as noted in HPI and below (HPI and those items noted below) Constitutional: Constitutional: Denies chills and Denies fever(s) Cardiovascular: Cardiovascular: Denies chest pain, Denies diaphoresis, Denies dyspnea and Denies paroxysmal nocturnal dyspnea Respiratory: Respiratory: Denies chest congestion, Denies cough and Denies dyspnea Integumentary/Breasts: Skin/Breast: Denies lesions and Denies rash Exam Const: General: comfortable and no acute distress Orientation/consciousness: patient oriented x3 GI: Inspection: normal to inspection, non-distended, scaphoid and other (Pigtail drains both draining bile stained fluid) GI Palp: Yes Firmness to palpation present (GI), Yes Tenderness to palpation present (GI) (Mild right upper quadrant), No Guarding due to palpation present (GI), No Rigid due to palpation, No Hernia present, No Palpable mass present, No Ascites present and No Rebound tenderness present Auscultation: normal bowel sounds Neuro: General: patient oriented x3 and no focal motor deficits Extrem: General: no calf tenderness and no edema Psych: Affect: normal affect Insight: Good insight present (Psych) Judgement: Good judgement present (Psych) Objective Data Vital
--- NOTE | 2023-01-19 12:31 | PC.NURSE ---
to HIDA scan
--- NOTE | 2023-01-19 12:59 | PM.IMPN ---
Progress Note: A&P Assessment and Plan (1) Emphysematous cholecystitis: Code(s): K81.0 - Acute cholecystitis Status: Acute Assessment and Plan: CT abd/pelvis (01/12) - Dilated gallbladder with gas involving the gallbladder wall as well as air-fluid level in the gallbladder, suspicious for an emphysematous cholecystitis. There is gas extending into the biliary tract with possible perforation along the inferior medial margin of the gallbladder, suspicious for perforation with abscess. There is free air along the liver margin inferiorly and anteriorly. US of abdomen (01/14) - 1: Complex heterogeneous appearance to the liver including masses of the left hepatic lobe measuring up to 3 cm. Cannot exclude metastatic disease. 2: Thickened gallbladder containing sludge and pericholecystic fluid. There is fluid adjacent to the gallbladder which may represent bowel, although abscess is not excluded. General Surgery following hepatic drains placed anterior and posteriorly. Fluid sent for culture. prelim results showing Streptococcus anginosus/cons, added Rocephin for coverage GI following - colonoscopy yesterday, HIDA today colonic polyps removed and sent to pathology - benign Continue Metronidazole and Rocephin IV. Blood cultures pending. Will need caloric increase,tolerating regular diet - dietary following continue PPI. Zofran PRN. continue pain management if abdominal pain returns. continue to replace potassium PO and IV (2) Weight loss: Code(s): R63.4 - Abnormal weight loss Status: Chronic Assessment and Plan: likely related to possible metastatic mass on liver and lack of intake r/t pain dietary consulted - will need supplementation (3) Anemia: Qualifiers: Anemia type: unspecified type Qualified Code(s): D64.9 - Anemia, unspecified Code(s): D64.9 - Anemia, unspecified Status: Acute Assessment and Plan: H&H stable for now, continue to monitor no obvious signs of bleed iron supplementation if needed (4) Marijuana abuse, continuous: Code(s): F12.10 - Cannabis abuse, uncomplicated Status: Acute Assessment and Plan: daily use for pain control r/t arthritis, does not like to take oral medication for pain control. no other drug or tobacco use reported. Plan Home Meds/Chronic Conditions - no daily medications Diet: regular GI Prophylaxis: Pantoprazole q.12 DVT Prophylaxis: SCDs, hold on pharm due to possible procedures Lines: pIV Code Status: Full Code, does not want prolonged ventilation or per minute G-tube ( feeding tube ). He is okay with a temporary NG or OG. Subjective Date/time seen: 01/19/23 12:59 Interval history: Patient is sitting up in bed this morning in no acute distress. He denies abdominal pain this morning and has been tolerating a regular diet since yesterday. He did experience some nausea after overeating last night so he is not hungry this morning. He is NPO for a HIDA scan today. Pathology on his colon polyps were benign. His drains are clean, dry and intact and patent. GI, Gen surgery following. Will continue IV antibiotics, added on Rocephin to cover for strep prelim results in micro culture and replace potassium. Continue to monitor and following consults recommendations. Review of Systems Review of Systems: All systems reviewed & are unremarkable except as noted in HPI and below Exam Const: General: comfortable and no acute distress Other: +emaciation. HENMT: Face/Nose/Sinus: Normal nares present Mouth: Yes dry mucous membranes Eyes: General: appearance normal, both eyes and all related structures Sclera: sclerae normal Pupils: Equal, round and reactive pupils present EOM: EOMs intact bilaterally Neck: Neck: supple Resp: Effort & Inspection: normal respiratory effort Auscultation: clear to auscultation bilaterally Cardio: Rate: regular rate Rhythm: regu
--- NOTE | 2023-01-19 14:52 | P.PNAN_ITS ---
Anes - Prog Note Post-Op Date/Time: 01/19/23 14:52 Cardiovascular status: normal Respiratory status: normal Airway patency: baseline Mental status: baseline Post-Op hydration status: normal Vital Signs: Last Vital Signs Temp 98.5 F 01/19/23 06:00 Pulse 69 01/19/23 06:00 Resp 18 01/19/23 06:00 BP 141/71 H 01/19/23 06:00 Pulse Ox 99 01/19/23 06:00 O2 Del Method Room Air 01/18/23 14:23 O2 Flow Rate 2 01/15/23 16:30 Pain Score (VAS): 0/10 I/O: Intake & Output 01/18/23 01/19/23 01/19/23 23:59 07:59 15:59 Intake Total 1890 1640 2240 Output Total 1180 450 Balance 710 1190 2240 Laboratory Tests 01/19/23 06:25 01/19/23 06:25 01/19/23 06:25 WBC 9.9 RBC 3.52 L Hgb 10.2 L Hct 31.4 L MCV 89.2 MCH 29.0 MCHC 32.5 RDW 14.4 Plt Count 309 MPV 9.7 Immature Gran % (Auto) 0.6 H Neut % (Auto) 79.7 H Lymph % (Auto) 11.[address] [place] % (Auto) 7.6 Eos % (Auto) 0.5 Baso % (Auto) 0.2 Lymph # (Auto) 1.12 [place] # (Auto) 0.8 H Eos # (Auto) 0.1 Baso # (Auto) 0.0 Abs Immat Gran (auto) 0.06 H Absolute Neuts (auto) 7.9 H Absolute Nucleated RBC 0.0 Nucleated RBC % 0.0 Sodium 134 L Potassium 2.6 L* Chloride 104 Carbon Dioxide 28 Anion Gap 2 L BUN 6 L Creatinine 0.80 Estim Creat Clear Calc 59 Estimated GFR > 60 Glucose 93 Calcium 7.0 L Microbiology 01/15/23 16:44 Abscess Anaerobic Culture - Preliminary Prevotella species 01/15/23 16:44 Abscess Aerobic Culture - Final Streptococcus anginosus/cons Post-procedural complaints: none Patient Feedback: Patient satisfied with anesthetic care.
[2023-01-19 20:00] VITALS: PULSE 80; RESP 16; O2SAT 97
[2023-01-19] MEDS: ACETAMINOPHEN 500 MG TABLET PO (21:09)
[2023-01-19 21:22] VITALS: BP 125/56; PULSE 82; RESP 14; TEMP 36.8; O2SAT 97
[2023-01-19 22:17] VITALS: TEMP 36.8
[2023-01-20] VITALS (7 sets, daily range): BP systolic 135–149; BP diastolic 56–71; PULSE 74–82; RESP 13–18; TEMP 36.5–37.7; O2SAT 97–98
[2023-01-20] MEDS: metroNIDAZOLE 500 MG/ISO 100ML 500 MG/100 ML BAG 100 MG IVPB ×4 (00:55→17:39)
[2023-01-20] MEDS: SODIUM CHLORIDE 0.9% IV 1,000 ML 150 ML IV CONT ×3 (05:38→17:38)
[2023-01-20 07:21] LABS: Basophils Percent Auto 0.2 % (0.2-1.2); Eosinophils Absolute Auto 0.1 K/mm3 (0-0.3); Eosinophils Percent Auto 0.8 % (0-4.4); Hematocrit 31.5 % (42.0-52.0); Hemoglobin 10.2 g/dL (14.0-18.0); Immature Granulocyte Absolute 0.04 K/mm3 (0.00-0.031); Immature Granulocyte Percent A 0.4 % (0-0.5); Lymphocytes Percent Auto 13.8 % (18.3-44.2); Mean Corpuscular HGB Conc 32.4 g/dl (32-36); Mean Corpuscular Hemoglobin 28.9 pg (26-34); Mean Corpuscular Volume 89.2 fl (80-100); Mean Platelet Volume 9.5 fl (7.4-10.4); Monocytes Absolute Auto 0.7 K/mm3 (0.1-0.6); Monocytes Percent Auto 6.9 % (2.6-8.5); Neutrophils Absolute Auto 7.9 K/mm3 (1.3-6.7); Neutrophils Percent Auto 77.9 % (45.5-73.1); Platelet Count Result 300 k/mm3 (150-375); Red Blood Count 3.53 M/mm3 (4.6-6.20); Red Cell Distribution Width 14.5 % (11.5-14.5); White Blood Count 10.2 K/mm3 (4.5-10.0)
[2023-01-20 07:32] LABS: Anion Gap 1 mmol/L (8-16); Blood Urea Nitrogen 5 mg/dL (9-20); Calcium 7.1 mg/dL (8.4-10.2); Carbon Dioxide 30 mmol/L (22-30); Chloride 103 mmol/L (98-107); Estimated CRCL calculation 66 ml/min; Estimated Glomerular Filt Rate > 60; Glucose 95 mg/dL (65-110); Sodium 134 mmol/L (137-145)
[2023-01-20] MEDS: PANTOPRAZOLE SODIUM IV 40 MG VIAL IV PUSH ×2 (09:10→20:04)
[2023-01-20] MEDS: cefTRIAXone 2 GM/NS 100 ML 2 GM/100 ML BAG IVPB (09:10)
[2023-01-20] MEDS: POTASSIUM CHLORIDE 20 MEQ ER TABLET 40 MEQ PO (09:48)
[2023-01-20] MEDS: POTASSIUM CHLORIDE INJ 40 MEQ in SODIUM CHLORIDE 0.9% IV 500 ML 130 MEQ IVPB (09:49)
--- NOTE | 2023-01-20 15:04 | P.PNIM_ITS ---
Progress Note: A&P Assessment and Plan (1) Hepatic abscess: Code(s): K75.0 - Abscess of liver Status: Acute Assessment and Plan: * CT abd/pelvis (01/12) - Dilated gallbladder with gas involving the gallbladder wall as well as air-fluid level in the gallbladder, suspicious for an emphysematous cholecystitis. There is gas extending into the biliary tract with possible perforation along the inferior medial margin of the gallbladder, suspicious for perforation with abscess. There is free air along the liver margin inferiorly and anteriorly. * US of abdomen (01/14) - 1: Complex heterogeneous appearance to the liver including masses of the left hepatic lobe measuring up to 3 cm. Cannot exclude metastatic disease. 2: Thickened gallbladder containing sludge and pericholecystic fluid. There is fluid adjacent to the gallbladder which may represent bowel, although abscess is not excluded. * General Surgery following * 01/20/2023: Repeat CT abdomen/pelvis ordered with IV and oral contrast by General surgery today * hepatic drains placed anterior and posteriorly. Fluid sent for culture. * GI following - colonoscopy yesterday, HIDA is negative * colonic polyps removed and sent to pathology - benign * Wound cultures positive for Heavy growth of Prevotella species and Streptococcus anginosus/constellatus * Continue Metronidazole and Rocephin IV. * Monitor WBC closely * Blood cultures are -ve * Will need caloric increase,tolerating regular diet - dietary following * continue PPI. Zofran PRN. * continue pain management if abdominal pain returns. * continue to replace potassium PO and IV (2) Emphysematous cholecystitis: Code(s): K81.0 - Acute cholecystitis Status: Acute Assessment and Plan: * Please see above management under Hepatic Abcess (3) Hypokalemia: Code(s): E87.6 - Hypokalemia Status: Acute Assessment and Plan: * Patient's potassium levels have been persistently low ranging between 2.6 and 3.3 since admission * Potassium level today is 3 * IV KCL 40 mEq ordered * KCl 40 mg p.o. daily ordered * Monitor potassium and electrolytes closely (4) Anemia: Qualifiers: Anemia type: unspecified type Qualified Code(s): D64.9 - Anemia, unspecified Code(s): D64.9 - Anemia, unspecified Status: Acute Assessment and Plan: * H&H stable for now, continue to monitor * no obvious signs of bleed * iron supplementation if needed (5) Weight loss: Code(s): R63.4 - Abnormal weight loss Status: Chronic Assessment and Plan: * likely related to possible metastatic mass on liver and lack of intake r/t pain * dietary consulted - will need supplementation (6) Marijuana abuse, continuous: Code(s): F12.10 - Cannabis abuse, uncomplicated Status: Acute Assessment and Plan: * daily use for pain control r/t arthritis, does not like to take oral medication for pain control. * no other drug or tobacco use reported. Plan Home Meds/Chronic Conditions - no daily medications Diet: regular GI Prophylaxis: Pantoprazole q.12 DVT Prophylaxis: SCDs, hold on pharm due to possible procedures Lines: pIV Code Status: Full Code, does not want prolonged ventilation or per minute G-tube ( feeding tube ). He is okay with a temporary NG or OG. ? Patient seen and examined at bedside during my morning rounds ? Collaborated with patient's nurse at the bedside in detail and addressed all concerns ? Labs, electrolytes, radiology, investiga
--- NOTE | 2023-01-20 15:04 | PM.IMPN ---
Progress Note: A&P Assessment and Plan (1) Hepatic abscess: Code(s): K75.0 - Abscess of liver Status: Acute Assessment and Plan: CT abd/pelvis (01/12) - Dilated gallbladder with gas involving the gallbladder wall as well as air-fluid level in the gallbladder, suspicious for an emphysematous cholecystitis. There is gas extending into the biliary tract with possible perforation along the inferior medial margin of the gallbladder, suspicious for perforation with abscess. There is free air along the liver margin inferiorly and anteriorly. US of abdomen (01/14) - 1: Complex heterogeneous appearance to the liver including masses of the left hepatic lobe measuring up to 3 cm. Cannot exclude metastatic disease. 2: Thickened gallbladder containing sludge and pericholecystic fluid. There is fluid adjacent to the gallbladder which may represent bowel, although abscess is not excluded. General Surgery following 01/20/2023: Repeat CT abdomen/pelvis ordered with IV and oral contrast by General surgery today hepatic drains placed anterior and posteriorly. Fluid sent for culture. GI following - colonoscopy yesterday, HIDA is negative colonic polyps removed and sent to pathology - benign Wound cultures positive for Heavy growth of Prevotella species and Streptococcus anginosus/constellatus Continue Metronidazole and Rocephin IV. Monitor WBC closely Blood cultures are -ve Will need caloric increase,tolerating regular diet - dietary following continue PPI. Zofran PRN. continue pain management if abdominal pain returns. continue to replace potassium PO and IV (2) Emphysematous cholecystitis: Code(s): K81.0 - Acute cholecystitis Status: Acute Assessment and Plan: Please see above management under Hepatic Abcess (3) Hypokalemia: Code(s): E87.6 - Hypokalemia Status: Acute Assessment and Plan: Patient's potassium levels have been persistently low ranging between 2.6 and 3.3 since admission Potassium level today is 3 IV KCL 40 mEq ordered KCl 40 mg p.o. daily ordered Monitor potassium and electrolytes closely (4) Anemia: Qualifiers: Anemia type: unspecified type Qualified Code(s): D64.9 - Anemia, unspecified Code(s): D64.9 - Anemia, unspecified Status: Acute Assessment and Plan: H&H stable for now, continue to monitor no obvious signs of bleed iron supplementation if needed (5) Weight loss: Code(s): R63.4 - Abnormal weight loss Status: Chronic Assessment and Plan: likely related to possible metastatic mass on liver and lack of intake r/t pain dietary consulted - will need supplementation (6) Marijuana abuse, continuous: Code(s): F12.10 - Cannabis abuse, uncomplicated Status: Acute Assessment and Plan: daily use for pain control r/t arthritis, does not like to take oral medication for pain control. no other drug or tobacco use reported. Plan Home Meds/Chronic Conditions - no daily medications Diet: regular GI Prophylaxis: Pantoprazole q.12 DVT Prophylaxis: SCDs, hold on pharm due to possible procedures Lines: pIV Code Status: Full Code, does not want prolonged ventilation or per minute G-tube ( feeding tube ). He is okay with a temporary NG or OG. ? Patient seen and examined at bedside during my morning rounds ? Collaborated with patient's nurse at the bedside in detail and addressed all concerns ? Labs, electrolytes, radiology, investigations and test results reviewed ? Consult/Nursing/Ancilliary notes on the chart reviewed and appreciated ? Spoke with patient/family at the bedside and answered all the questions that they had Repeat labs in a.m. Electrolyte replacement as per protocol. Patient will be monitored very closely on the floor. Further recommendations as per the hospital course. I am signing off. Patient's medical care will be taken over by my covering hospita
[2023-01-20] MEDS: ACETAMINOPHEN 500 MG TABLET PO (20:33)
[2023-01-21] MEDS: metroNIDAZOLE 500 MG/ISO 100ML 500 MG/100 ML BAG 100 MG IVPB ×4 (00:26→21:25)
[2023-01-21] MEDS: SODIUM CHLORIDE 0.9% IV 1,000 ML 150 ML IV CONT ×2 (04:26→11:46)
[2023-01-21 05:26] VITALS: BP 128/79; PULSE 80; RESP 13; TEMP 36.7; O2SAT 97
[2023-01-21 07:48] LABS: Alanine Aminotransferase 12 U/L (6-50); Albumin Level 2.2 g/dL (3.5-5.1); Alkaline Phosphatase 80 U/L (38-126); Anion Gap 3 mmol/L (8-16); Aspartate Amino Transferase 21 U/L (17-59); Bilirubin,Total 0.2 mg/dL (0.2-1.3); Blood Urea Nitrogen 4 mg/dL (9-20); Calcium 7.3 mg/dL (8.4-10.2); Carbon Dioxide 29 mmol/L (22-30); Chloride 102 mmol/L (98-107); Estimated CRCL calculation 76 ml/min; Estimated Glomerular Filt Rate > 60; Glucose 107 mg/dL (65-110); Magnesium 1.7 mg/dL (1.6-2.3); Phosphorus 2.1 mg/dL (2.5-4.5); Potassium 3.1 mmol/L (3.4-5.0); Sodium 134 mmol/L (137-145)
[2023-01-21 07:50] LABS: Basophils Percent Auto 0.2 % (0.2-1.2); Eosinophils Absolute Auto 0.1 K/mm3 (0-0.3); Eosinophils Percent Auto 0.9 % (0-4.4); Hematocrit 33.3 % (42.0-52.0); Hemoglobin 10.4 g/dL (14.0-18.0); Immature Granulocyte Absolute 0.04 K/mm3 (0.00-0.031); Immature Granulocyte Percent A 0.5 % (0-0.5); Lymphocytes Absolute Auto 1.06 K/mm3 (0.9-3.2); Mean Corpuscular HGB Conc 31.2 g/dl (32-36); Mean Corpuscular Hemoglobin 28.6 pg (26-34); Mean Corpuscular Volume 91.5 fl (80-100); Mean Platelet Volume 9.6 fl (7.4-10.4); Monocytes Absolute Auto 0.6 K/mm3 (0.1-0.6); Monocytes Percent Auto 6.9 % (2.6-8.5); Neutrophils Percent Auto 79.5 % (45.5-73.1); Platelet Count Result 299 k/mm3 (150-375); Red Blood Count 3.64 M/mm3 (4.6-6.20); Red Cell Distribution Width 14.6 % (11.5-14.5); White Blood Count 8.8 K/mm3 (4.5-10.0)
--- NOTE | 2023-01-21 08:08 | P.PNIM_ITS ---
Progress Note: A&P Assessment and Plan (1) Hepatic abscess: Code(s): K75.0 - Abscess of liver Status: Acute Assessment and Plan: * Abscess of liver, gallbladder perforation cT abd/pelvis (01/12) - Dilated gallbladder with gas involving the gallbladder wall as well as air-fluid level in the gallbladder, suspicious for an emphysematous cholecystitis. There is gas extending into the biliary tract with possible perforation along the inferior medial margin of the gallbladder, suspicious for perforation with abscess. There is free air along the liver margin inferiorly and anteriorly. * US of abdomen (01/14) - 1: Complex heterogeneous appearance to the liver including masses of the left hepatic lobe measuring up to 3 cm. Cannot exclude metastatic disease. 2: Thickened gallbladder containing sludge and aaliyah cholecystic fluid. There is fluid adjacent to the gallbladder which may represent bowel, although abscess is not excluded. * General Surgery following * 01/20/2023: Repeat CT abdomen/pelvis ordered with IV and oral contrast by General surgery * hepatic drains placed anterior and posteriorly. Fluid sent for culture. * GI following - colonoscopy yesterday, HIDA is negative * Wound cultures positive for Heavy growth of Prevotella species and Streptococcus anginosus/constellatus * Continue Metronidazole and Rocephin IV. * Follow-up susceptibility Monitor WBC, which is trending down * Blood cultures are -ve colonic polyps removed and sent to pathology - benign * . The cecal polyp is large and is obstructing the appendiceal lumen * General surgeon plans Extended Right hemicolectomy and drainage hepatic abscess on Wednesday * Will need caloric increase,tolerating regular diet - dietary following * continue PPI. Zofran PRN. * continue pain management if abdominal pain returns. * continue to replace potassium PO and IV (2) Emphysematous cholecystitis: Code(s): K81.0 - Acute cholecystitis Status: Ruled-out Assessment and Plan: * Please see above management under Hepatic Abcess (3) Hypokalemia: Code(s): E87.6 - Hypokalemia Status: Acute Assessment and Plan: * Patient's potassium levels have been persistently low ranging between 2.6 and 3.3 since admission * Potassium level today is 3 * IV KCL 40 mEq ordered * KCl 40 mg p.o. daily ordered * Monitor potassium and electrolytes closely (4) Anemia: Qualifiers: Anemia type: unspecified type Qualified Code(s): D64.9 - Anemia, unspecified Code(s): D64.9 - Anemia, unspecified Status: Acute Assessment and Plan: * H&H stable for now, continue to monitor * no obvious signs of bleed * iron supplementation if needed (5) Weight loss: Code(s): R63.4 - Abnormal weight loss Status: Chronic Assessment and Plan: * likely related to possible metastatic mass on liver and lack of intake r/t pain * dietary consulted - will need supplementation (6) Marijuana abuse, continuous: Code(s): F12.10 - Cannabis abuse, uncomplicated Status: Acute Assessment and Plan: * daily use for pain control r/t arthritis, does not like to take oral medication for pain control. * no other drug or tobacco use reported. Plan Home Meds/Chronic Conditions - no daily medications Diet: regular GI Prophylaxis: Pantoprazole q.12 DVT Prophylaxis: SCDs, hold on pharm due to possible procedures Lines: pIV Code Status: Full Code, does not want prolonged ventilation or per minute G-tube ( feeding t
--- NOTE | 2023-01-21 08:08 | PM.IMPN ---
Progress Note: A&P Assessment and Plan (1) Hepatic abscess: Code(s): K75.0 - Abscess of liver Status: Acute Assessment and Plan: Abscess of liver, gallbladder perforation cT abd/pelvis (01/12) - Dilated gallbladder with gas involving the gallbladder wall as well as air-fluid level in the gallbladder, suspicious for an emphysematous cholecystitis. There is gas extending into the biliary tract with possible perforation along the inferior medial margin of the gallbladder, suspicious for perforation with abscess. There is free air along the liver margin inferiorly and anteriorly. US of abdomen (01/14) - 1: Complex heterogeneous appearance to the liver including masses of the left hepatic lobe measuring up to 3 cm. Cannot exclude metastatic disease. 2: Thickened gallbladder containing sludge and pericholecystic fluid. There is fluid adjacent to the gallbladder which may represent bowel, although abscess is not excluded. General Surgery following 01/20/2023: Repeat CT abdomen/pelvis ordered with IV and oral contrast by General surgery hepatic drains placed anterior and posteriorly. Fluid sent for culture. GI following - colonoscopy yesterday, HIDA is negative Wound cultures positive for Heavy growth of Prevotella species and Streptococcus anginosus/constellatus Continue Metronidazole and Rocephin IV. Follow-up susceptibility Monitor WBC, which is trending down Blood cultures are -ve colonic polyps removed and sent to pathology - benign . The cecal polyp is large and is obstructing the appendiceal lumen General surgeon plans Extended Right hemicolectomy and drainage hepatic abscess on Wednesday Will need caloric increase,tolerating regular diet - dietary following continue PPI. Zofran PRN. continue pain management if abdominal pain returns. continue to replace potassium PO and IV (2) Emphysematous cholecystitis: Code(s): K81.0 - Acute cholecystitis Status: Ruled-out Assessment and Plan: Please see above management under Hepatic Abcess (3) Hypokalemia: Code(s): E87.6 - Hypokalemia Status: Acute Assessment and Plan: Patient's potassium levels have been persistently low ranging between 2.6 and 3.3 since admission Potassium level today is 3 IV KCL 40 mEq ordered KCl 40 mg p.o. daily ordered Monitor potassium and electrolytes closely (4) Anemia: Qualifiers: Anemia type: unspecified type Qualified Code(s): D64.9 - Anemia, unspecified Code(s): D64.9 - Anemia, unspecified Status: Acute Assessment and Plan: H&H stable for now, continue to monitor no obvious signs of bleed iron supplementation if needed (5) Weight loss: Code(s): R63.4 - Abnormal weight loss Status: Chronic Assessment and Plan: likely related to possible metastatic mass on liver and lack of intake r/t pain dietary consulted - will need supplementation (6) Marijuana abuse, continuous: Code(s): F12.10 - Cannabis abuse, uncomplicated Status: Acute Assessment and Plan: daily use for pain control r/t arthritis, does not like to take oral medication for pain control. no other drug or tobacco use reported. Plan Home Meds/Chronic Conditions - no daily medications Diet: regular GI Prophylaxis: Pantoprazole q.12 DVT Prophylaxis: SCDs, hold on pharm due to possible procedures Lines: pIV Code Status: Full Code, does not want prolonged ventilation or per minute G-tube ( feeding tube ). He is okay with a temporary NG or OG. ? Patient seen and examined at bedside during my morning rounds ? Collaborated with patient's nurse at the bedside in detail and addressed all concerns ? Labs, electrolytes, radiology, investigations and test results reviewed ? Consult/Nursing/Ancilliary notes on the chart reviewed and appreciated ? Spoke with patient/family at the bedside and answered all the questions that they had Re
--- NOTE | 2023-01-21 09:46 | PCNFU ---
Nutrition Follow-Up Complete: Severe malnutrition related to chronic cancer as evidenced by weight loss 13%/6 months; NFPE findings of severe fat loss and moderate muscle loss. Goal:Adequate PO intake when diet is advanced Pt current nutrition is Clear liquids today, was low fiber. Nutrition recommendation: resume low fiber diet as soon as appropriate Last recorded weight is 51 kg. Bowel Motility: +BM 01/20 Labs Reviewed: Hgb:10.4, HCT:33.3, Alb:2.2, NA:134, K:3.1, Cr:0.6 Meds Noted: zofran, KCL, protonix Skin: WNL Additional Notes: Pt is on clear liquids today, was on low fiber with good intake, Recommend to resume low fiber when appropriate. Appetite is good, intake is good. Monitoring for diet advancement, intakes, weights, labs, plan of care Follow up in 3 days
[2023-01-21] MEDS: PANTOPRAZOLE SODIUM IV 40 MG VIAL IV PUSH ×2 (09:51→21:26)
[2023-01-21] MEDS: cefTRIAXone 2 GM/NS 100 ML 2 GM/100 ML BAG IVPB (09:55)
[2023-01-21] MEDS: KCL 20 MEQ/SW 100 ML 100 ML 50 MEQ IVPB (11:48)
[2023-01-21 14:00] VITALS: BP 134/77; PULSE 84; RESP 16; TEMP 37.1; O2SAT 99
[2023-01-21] MEDS: LACTATED RINGERS 1,000 ML 80 ML IV CONT (14:56)
[2023-01-21] MEDS: NEOMYCIN SULFATE 500 MG TAB 1000 MG PO ×2 (14:59→16:22)
[2023-01-21] MEDS: metroNIDAZOLE 500 MG TABLET PO ×2 (14:59→16:22)
[2023-01-21] MEDS: POTASSIUM CHLORIDE 20 MEQ PACKET (FOR LIQUID) 40 MEQ PO (15:00)
[2023-01-21] MEDS: ONDANSETRON INJ 4 MG/2 ML VIAL IV PUSH (16:25)
--- NOTE | 2023-01-21 16:54 | PM.PNGS ---
Progress Note: A&P Assessment and Plan (1) Hepatic abscess: Code(s): K75.0 - Abscess of liver Status: Acute Assessment and Plan: Multiple upper abdominal abscesses with quite a bit of air associated with the abscesses. Two of the largest abscesses were drained percutaneously and grew prevotella and Streptococcus. White blood cell count has decreased to normal. There are still several abscesses that have not been drained completely. After yesterday CT scan, I think the possibility of perforated gastric ulcer is the most likely cause of these abscesses. Some of the abscesses are directly adjacent to the antrum of the stomach. Will drain and evacuate abscesses as best I can tomorrow in surgery. If perforation of the stomach is noted, it may require repair or it may already be adequately closed on its own. Will evaluate that intraoperatively. I explained this part of the surgical procedure tomorrow to the patient and will add possible repair of perforated viscus to the operative consent. The causes of the aaliyah appendix and perigastric abscess is were not really evident but with the patient's history of difficulty eating, weight loss and the CT presentation, I think perforated gastric ulcer is the most likely culprit. (2) Colon polyps: Qualifiers: Colon polyp type: adenomatous Colon location: unspecified part of colon Qualified Code(s): D12.6 - Benign neoplasm of colon, unspecified Code(s): K63.5 - Polyp of colon Status: Chronic Assessment and Plan: Patient had multiple polyps removed at colonoscopy by Dr. Zimmerman. In the distal transverse colon, there was a 4 cm sessile polyp that could not be removed. Biopsies showed tubular adenoma as did the other polyps. Also in the ileocecal valve was another polyp. Biopsy of this also showed tubular adenoma with no dysplasia. This polyp is causing obstruction of the appendiceal orifice and created an extremely dilated appendix. This polyp will also require resection. Plan to proceed with extended right hemicolectomy tomorrow in surgery. I described this surgery and the reason for the surgery in detail to the patient. Described also that the polyps, if left alone, present a high risk of developing colon cancer. In addition the obstruction of the appendiceal orifice could lead to rupture of the appendix or distal small-bowel obstruction. All questions were answered. I think the chances of having an ileostomy after this surgery are almost nil. I explained that to the patient as well. He agrees with me that he wants all the problems in the abdomen addressed at 1 operation which is my plan as well. (3) Hypokalemia: Code(s): E87.6 - Hypokalemia Status: Acute Assessment and Plan: Being supplemented (4) Protein-calorie malnutrition, severe: Code(s): E43 - Unspecified severe protein-calorie malnutrition Status: Chronic Assessment and Plan: Patient has had several days of good nutrition and is in much better shape preoperatively then he was on admission. (5) Emphysematous cholecystitis: Code(s): K81.0 - Acute cholecystitis Status: Ruled-out Assessment and Plan: Although this was the admitting diagnosis, this has been ruled out. The HIDA scan done day before yesterday clearly shows normal gallbladder function. No plans to remove the gallbladder unless something unexpected is found at surgery. Plan I discussed the procedure, alternatives, risks and benefits thoroughly with the patient. I discussed I would typical time I would expect the operation to take as well as the time in the hospital. I also described usual expectations for for full recovery. All questions were answered. He wishes to proceed as scheduled tomorrow afternoon. Subjective Subjective Date/Time Seen: 01/21/23 16:54 Patient reports: no new complaints, tolerating a regular diet, bowel movement and afebrile Review of Systems Rev
[2023-01-21] MEDS: POTASSIUM CHLORIDE 20 MEQ ER TABLET 40 MEQ PO (18:13)
[2023-01-21 21:07] VITALS: BP 140/73; PULSE 76; RESP 16; TEMP 37.4; O2SAT 97
[2023-01-21] MEDS: POTASSIUM CHLORIDE INJ 40 MEQ in SODIUM CHLORIDE 0.9% IV 500 ML 130 MEQ IVPB (22:50)
[2023-01-22] VITALS (13 sets, daily range): BP systolic 132–152; BP diastolic 74–87; PULSE 68–115; RESP 12–25; TEMP 36.2–36.9; O2SAT 95–100
[2023-01-22] MEDS: metroNIDAZOLE 500 MG TABLET PO (00:47)
[2023-01-22] MEDS: NEOMYCIN SULFATE 500 MG TAB 1000 MG PO (00:47)
[2023-01-22] MEDS: metroNIDAZOLE 500 MG/ISO 100ML 500 MG/100 ML BAG 100 MG IVPB ×3 (03:12→13:50)
[2023-01-22 06:19] LABS: Basophils Percent Auto 0.2 % (0.2-1.2); Eosinophils Absolute Auto 0.1 K/mm3 (0-0.3); Eosinophils Percent Auto 1.1 % (0-4.4); Hemoglobin 9.7 g/dL (14.0-18.0); Immature Granulocyte Absolute 0.04 K/mm3 (0.00-0.031); Immature Granulocyte Percent A 0.5 % (0-0.5); Lymphocytes Absolute Auto 1.12 K/mm3 (0.9-3.2); Lymphocytes Percent Auto 13.3 % (18.3-44.2); Mean Corpuscular HGB Conc 31.3 g/dl (32-36); Mean Corpuscular Hemoglobin 28.4 pg (26-34); Mean Corpuscular Volume 90.6 fl (80-100); Mean Platelet Volume 9.2 fl (7.4-10.4); Monocytes Absolute Auto 0.5 K/mm3 (0.1-0.6); Monocytes Percent Auto 5.9 % (2.6-8.5); Neutrophils Absolute Auto 6.7 K/mm3 (1.3-6.7); Platelet Count Result 274 k/mm3 (150-375); Red Blood Count 3.42 M/mm3 (4.6-6.20); Red Cell Distribution Width 14.9 % (11.5-14.5); White Blood Count 8.4 K/mm3 (4.5-10.0)
[2023-01-22 06:28] LABS: Alanine Aminotransferase 10 U/L (6-50); Albumin Level 2.1 g/dL (3.5-5.1); Alkaline Phosphatase 67 U/L (38-126); Anion Gap 1 mmol/L (8-16); Aspartate Amino Transferase 21 U/L (17-59); Bilirubin,Total 0.3 mg/dL (0.2-1.3); Blood Urea Nitrogen 4 mg/dL (9-20); Calcium 7.5 mg/dL (8.4-10.2); Carbon Dioxide 29 mmol/L (22-30); Chloride 102 mmol/L (98-107); Estimated CRCL calculation 76 ml/min; Estimated Glomerular Filt Rate > 60; Glucose 81 mg/dL (65-110); Potassium 3.6 mmol/L (3.4-5.0); Sodium 132 mmol/L (137-145)
[2023-01-22] MEDS: cefTRIAXone 2 GM/NS 100 ML 2 GM/100 ML BAG IVPB (09:01)
[2023-01-22] MEDS: POTASSIUM CHLORIDE 20 MEQ PACKET (FOR LIQUID) 40 MEQ PO (09:01)
[2023-01-22] MEDS: LACTATED RINGERS 1,000 ML 80 ML IV CONT (09:13)
[2023-01-22] MEDS: PANTOPRAZOLE SODIUM IV 40 MG VIAL IV PUSH (09:54)
[2023-01-22] MEDS: CHLORHEXIDINE GLUCONATE 4% SOL 120 ML BTL 1 APPLIC (10:07)
[2023-01-22] MEDS: LACTATED RINGERS 1,000 ML 30 ML IV CONT ×2 (12:20→17:05)
--- NOTE | 2023-01-22 12:28 | WPDANESEPPF ---
Anes - Initial Pre Proc Eval Procedure: Operation Date: 01/15/23 15:00 Proposed Procedures p Computed Tomography Guided Abscess Catheter Placement - Osiel Colunga MD Operation Date: 01/15/23 15:30 Proposed Procedures p Esophagogastroduodenoscopy - Mehdi Ramon MD Operation Date: 01/18/23 14:30 Proposed Procedures p Colonoscopy - Jose Zimmerman MD Operation Date: 01/22/23 14:00 Proposed Procedures p Extended Right Open Hemicolectomy, Drainage Hepatic Abscess,Possible Repair Of Perforated Viscus(Right) - Giovanni Bui MD Date/Time: 01/22/23 12:28 Surgeon: Wesley Dubose MD Pre Op Diagnosis: emphysematous cholecystitis Patient Data Age: 62 Gender: M Height: 1.73 m Weight: 51 kg Last Vital Signs Temp 36.4 C 01/22/23 04:26 Pulse 76 01/22/23 04:26 Resp 16 01/22/23 04:26 BP 132/75 01/22/23 04:26 Pulse Ox 97 01/22/23 04:26 O2 Del Method Room Air 01/22/23 09:00 O2 Flow Rate 2 01/15/23 16:30 Allergies Allergy/AdvReac Type Severity Reaction Status Date / Time Penicillins Allergy Mild rash Verified 01/22/23 12:26 Home Medications Medication Instructions Recorded Confirmed Type ciprofloxacin HCl 500 mg tablet 500 mg PO Q12H 7 days #14 tabs 01/13/23 01/14/23 Rx metronidazole 500 mg tablet 500 mg PO Q8H 7 days #21 tabs 01/13/23 01/14/23 Rx Laboratory Tests 01/22/23 05:42 WBC 8.4 K/mm3 (4.5-10.0) RBC 3.42 L M/mm3 (4.6-6.20) Hgb 9.7 L g/dL (14.0-18.0) Hct 31.0 L % (42.0-52.0) MCV 90.6 fl (80-100) MCH 28.4 pg (26-34) MCHC 31.3 L g/dl (32-36) RDW 14.9 H % (11.5-14.5) Plt Count 274 k/mm3 (150-375) MPV 9.2 fl (7.4-10.4) Immature Gran % (Auto) 0.5 % (0-0.5) Neut % (Auto) 79.0 H % (45.5-73.1) Lymph % (Auto) 13.3 L % (18.3-44.2) [place] % (Auto) 5.9 % (2.6-8.5) Eos % (Auto) 1.1 % (0-4.4) Baso % (Auto) 0.2 % (0.2-1.2) Lymph # (Auto) 1.12 K/mm3 (0.9-3.2) [place] # (Auto) 0.5 K/mm3 (0.1-0.6) Eos # (Auto) 0.1 K/mm3 (0-0.3) Baso # (Auto) 0.0 K/mm3 (0.0-0.1) Abs Immat Gran (auto) 0.04 H K/mm3 (0.00-0.031) Absolute Neuts (auto) 6.7 K/mm3 (1.3-6.7) Absolute Nucleated RBC 0.0 K/mm3 (0.0-0.012) Nucleated RBC % 0.0 % (0.0-0.2) Sodium 132 L mmol/L (137-145) Potassium 3.6 mmol/L (3.4-5.0) Chloride 102 mmol/L (98-107) Carbon Dioxide 29 mmol/L (22-30) Anion Gap 1 L mmol/L (8-16) BUN 4 L mg/dL (9-20) Creatinine 0.60 L mg/dL (0.7-1.3) Estim Creat Clear Calc 76 ml/min Estimated GFR > 60 (59 - ) Glucose 81 mg/dL (65-110) Calcium 7.5 L mg/dL (8.4-10.2) Total Bilirubin 0.3 mg/dL (0.2-1.3) AST 21 U/L (17-59) ALT 10 U/L (6-50) Alkaline Phosphatase 67 U/L (38-126) Total Protein 5.0 L g/dL (6.3-8.2) Albumin 2.1 L g/dL (3.5-5.1) Patient hx anesthesia problems: none Family hx anesthesia problems: none Results Review: All pre-operative results and documents have been reviewed as part of the pre-operative evaluation. [facility] Past Medical History Medical History Anemia History of tobacco abuse Marijuana abuse, continuous used for pain control r/t arthritis Osteoarthritis Surgical History Surgical History No pertinent past surgical history Family History Family History Father Cancer, Onset Age: 58 unclear primary source, was metastatic at time of diagnosis and was shortly after discovered Acute myocardial infarction, Onset Age: 58 Sibling Cancer brother, not close with family. unknown type. Sibling Cancer brother, colon cancer. Social History Social History Social History:
[2023-01-22] MEDS: ALVIMOPAN 12 MG CAPSULE PO (12:36)
--- NOTE | 2023-01-22 13:25 | WPDHPUPDATE1 ---
History and Physical Update Update Date/Time: 01/22/23 13:25 History and Physical has been reviewed, including an updated exam of the patient. There are NO changes in the patient's condition. Risks, benefits, and alternatives have been discussed and questions answered. Patient agrees to proceed with procedure.
[2023-01-22] MEDS: ceFAZolin 2 GM/D5W 50 ML 2 GM/50 ML BAG IVPB (13:31)
--- NOTE | 2023-01-22 15:27 | SUR.OPER ---
Per Dr. Bui order, percutaneous drains x 2 removed from right flank and abdomen prior to incision. Removed by Ama Arrieta RN. Drain sites covered with 2x2's and tegaderm.
[2023-01-22] MEDS: HYDROmorphone HCL INJ (*CRX) 1 MG/ML SYR 0.5 MG IV PUSH ×2 (17:48→17:53)
--- NOTE | 2023-01-22 18:40 | PC.NURSE ---
Returned from OR per stretcher. Report received from Shannan.
[2023-01-22] MEDS: KCL 40 MEQ/0.9% SOD CHL 1,000 ML 125 ML IV CONT (19:03)
--- NOTE | 2023-01-22 20:06 | PC.NURSE ---
Izabella Muir LPN provided care for this patient on 01/22/23. I agree with her assessments and charting.
--- NOTE | 2023-01-22 22:03 | W.PM.PROC2 ---
Procedure Note - Detailed Date of Procedure 01/22/23 Pre-op Diagnosis Polyps in the terminal ileum and cecum with another polyp in the distal transverse colon, hepatic abscesses, perforated viscus Post-op Diagnosis Other (Polyps of the cecum and transverse colon, hepatic abscesses, perforated gastric ulcer.) Procedure Performed Extended right hemicolectomy with ileo transverse hand-sewn anastomosis, drainage of multiple right upper quadrant and perigastric abscesses, repair gastric antral perforation, omentoplasty Surgeon Giovanni Bui MD [employer] [facility] Love, [facility] Anesthesia General Indications Patient presented with evidence of infection and perihepatic abscesses. He was also malnourished and had eaten poorly for at least a year. He was also seen on CT scan to have a cecal mass. On colonoscopy he had a sessile polyp in the distal transverse colon as well as a polyp in the terminal ileum that were both unresectable. Biopsies of each of the showed tubular adenoma. Patient's appendix was significantly dilated at over [address] scan had shown perihepatic abscesses which were 1st thought to be due to cholecystitis and possible gallbladder rupture. Further imaging of the gallbladder showed it to be normal. He had a couple of CT scans and eventually it seemed the most likely diagnosis was gastric ulcer with perforation causing these abscesses. He has had 2 of the abscess is drained percutaneously, he has had several meals and has had a full bowel prep. He is taken to surgery now for extended right hemicolectomy as well as drainage of multiple hepatic abscesses and possibly repair of perforated viscus. Findings Patient did indeed have the expected findings. The gastric opening was on the very medial lower antrum of the stomach. It had been walled off by an abscess associated with the lateral segment of the left lobe of the liver. There was an abscess from the more distal stomach to the anterior abdominal wall. It did not appear to have any perforation associated with it. This seemed to just be an abscess. There were also several abscesses under the right lobe of the liver between that and the hepatic flexure of the colon. The gallbladder was uninvolved but was still adhesed to the transverse colon. Procedure was quite bloody as all the inflammation resulted in oozing of blood throughout the dissection. Additionally, the polyp in the cecum was a very hard mass and worrisome for a malignancy despite the negative biopsy at colonoscopy. The tattoo associated with the distal transverse colon polyp was easily seen. This polyp was really not palpable at the time of surgery. Description of Procedure Patient was taken to surgery and induced into general anesthesia. The abdomen was prepped and draped. An upper abdominal midline incision was made and carried down just below the umbilicus. We dissected through the midline fascia and the peritoneum. We opened the abdomen the length of the wound. The initial entry into the abdomen was greeted with a dense adhesion of the distal stomach to the anterior abdominal wall. In dissecting the stomach off the anterior abdominal wall, we ran into the 1st abscess that we encountered. We suctioned the purulent fluid away after culturing it. Eventually the stomach was taken off the anterior abdominal wall. It was examined and checked for possible perforation. None was found and appeared this was just the posterior aspect of a abscess. We then continued to explore the abdomen. There was quite a bit of bloody ascites in the abdomen upon opening. I was able to palpate over the dome of the right lobe of the liver and over to the lateral segment of the left lobe of the liver after dividing the falciform ligament. The remaining lower aspect of the left and right lobes of the liver were attached to either the stomach or transverse colon. In freeing the liver from the stomach and transverse colon, we encountered 2 more absce
[2023-01-23 04:12] VITALS: BP 147/79; PULSE 80; RESP 13; TEMP 36.7; O2SAT 97
[2023-01-23] MEDS: KCL 40 MEQ/0.9% SOD CHL 1,000 ML 125 ML IV CONT ×3 (05:41→21:57)
[2023-01-23] MEDS: MORPHINE SULFATE (*CRX) 4 MG/ML INJ IV PUSH (06:16)
[2023-01-23] MEDS: IBUPROFEN IV 800 MG/200 ML 800 MG/200 ML BAG 400 MG IVPB ×3 (06:25→21:55)
[2023-01-23 06:43] LABS: Basophils Absolute Auto 0.1 K/mm3 (0.0-0.1); Basophils Percent Auto 0.2 % (0.2-1.2); Hematocrit 43.5 % (42.0-52.0); Hemoglobin 14.3 g/dL (14.0-18.0); Immature Granulocyte Absolute 0.18 K/mm3 (0.00-0.031); Immature Granulocyte Percent A 0.7 % (0-0.5); Lymphocytes Absolute Auto 0.93 K/mm3 (0.9-3.2); Lymphocytes Percent Auto 3.9 % (18.3-44.2); Mean Corpuscular HGB Conc 32.9 g/dl (32-36); Mean Corpuscular Hemoglobin 28.9 pg (26-34); Mean Corpuscular Volume 88.1 fl (80-100); Mean Platelet Volume 9.2 fl (7.4-10.4); Monocytes Absolute Auto 0.9 K/mm3 (0.1-0.6); Monocytes Percent Auto 3.7 % (2.6-8.5); Neutrophils Absolute Auto 22.1 K/mm3 (1.3-6.7); Neutrophils Percent Auto 91.5 % (45.5-73.1); Platelet Count Result 316 k/mm3 (150-375); Red Blood Count 4.94 M/mm3 (4.6-6.20); Red Cell Distribution Width 15.6 % (11.5-14.5); White Blood Count 24.1 K/mm3 (4.5-10.0)
[2023-01-23 07:18] LABS: Alanine Aminotransferase 15 U/L (6-50); Albumin Level 2.3 g/dL (3.5-5.1); Alkaline Phosphatase 68 U/L (38-126); Anion Gap 2 mmol/L (8-16); Aspartate Amino Transferase 32 U/L (17-59); Bilirubin,Total 0.5 mg/dL (0.2-1.3); Blood Urea Nitrogen 8 mg/dL (9-20); Calcium 7.7 mg/dL (8.4-10.2); Carbon Dioxide 29 mmol/L (22-30); Chloride 103 mmol/L (98-107); Estimated CRCL calculation 69 ml/min; Estimated Glomerular Filt Rate > 60; Glucose 130 mg/dL (65-110); Potassium 4.6 mmol/L (3.4-5.0); Sodium 134 mmol/L (137-145)
--- NOTE | 2023-01-23 08:06 | P.PNIM_ITS ---
Progress Note: A&P Assessment and Plan (1) Hepatic abscess: Code(s): K75.0 - Abscess of liver Status: Acute Assessment and Plan: * Abscess of liver, gallbladder perforation cT abd/pelvis (01/12) - Dilated gallbladder with gas involving the gallbladder wall as well as air-fluid level in the gallbladder, suspicious for an emphysematous cholecystitis. There is gas extending into the biliary tract with possible perforation along the inferior medial margin of the gallbladder, suspicious for perforation with abscess. There is free air along the liver margin inferiorly and anteriorly. * US of abdomen (01/14) - 1: Complex heterogeneous appearance to the liver including masses of the left hepatic lobe measuring up to 3 cm. Cannot exclude metastatic disease. 2: Thickened gallbladder containing sludge and aaliyah cholecystic fluid. There is fluid adjacent to the gallbladder which may represent bowel, although abscess is not excluded. * General Surgery following * 01/20/2023: Repeat CT abdomen/pelvis ordered with IV and oral contrast by General surgery * hepatic drains placed anterior and posteriorly. Fluid sent for culture. * GI following - colonoscopy done, HIDA is negative * Wound cultures positive for Heavy growth of Prevotella species and Streptococcus anginosus/constellatus * Continue Metronidazole and Rocephin IV. * Follow-up susceptibility Monitor WBC, which is trending down * Blood cultures are -ve colonic polyps removed and sent to pathology - benign * . The cecal polyp is large and is obstructing the appendiceal lumen * continue PPI. Zofran PRN. * continue pain management if abdominal pain returns. s/p Extended right hemicolectomy with ileo transverse hand-sewn anastomosis, drainage of multiple right upper quadrant and perigastric abscesses, repair gastric antral perforation, omentoplasty, performed on 01/23 Follow-up CBC, CMP, magnesium, phosphorus level, replete electrolytes accordingly Patient has passed gas, patient and p.o., denies abdomen pain, nausea vomiting Labs reviewed, patient afebrile, blood pressure stable (2) Emphysematous cholecystitis: Code(s): K81.0 - Acute cholecystitis Status: Ruled-out Assessment and Plan: * Please see above management under Hepatic Abcess (3) Hypokalemia: Code(s): E87.6 - Hypokalemia Status: Acute Assessment and Plan: * Patient's potassium levels have been persistently low * Replaced with potassium chloride * Monitor potassium level, replete accordingly (4) Anemia: Qualifiers: Anemia type: unspecified type Qualified Code(s): D64.9 - Anemia, unspecified Code(s): D64.9 - Anemia, unspecified Status: Acute Assessment and Plan: * H&H stable for now, continue to monitor * no obvious signs of bleed * iron supplementation if needed (5) Weight loss: Code(s): R63.4 - Abnormal weight loss Status: Chronic Assessment and Plan: * likely related to multiple factors, possible liver abscess, obstruction and lack of intake r/t pain * dietary consulted - will need supplementation (6) Marijuana abuse, continuous: Code(s): F12.10 - Cannabis abuse, uncomplicated Status: Acute Subjective Date/time seen: 01/23/23 08:06 Interval history: I saw exam patient today. Status post extended right hemicolectomy with ileo transverse hand-sewn anastomosis, drainage of multiple right upper quadrant and perigastric abscesses, repair gastric antral perforation, omentoplasty day 1. Patient denies abdomen pain, nausea vomiting. Patient banda
--- NOTE | 2023-01-23 08:06 | PM.IMPN ---
Progress Note: A&P Assessment and Plan (1) Hepatic abscess: Code(s): K75.0 - Abscess of liver Status: Acute Assessment and Plan: Abscess of liver, gallbladder perforation cT abd/pelvis (01/12) - Dilated gallbladder with gas involving the gallbladder wall as well as air-fluid level in the gallbladder, suspicious for an emphysematous cholecystitis. There is gas extending into the biliary tract with possible perforation along the inferior medial margin of the gallbladder, suspicious for perforation with abscess. There is free air along the liver margin inferiorly and anteriorly. US of abdomen (01/14) - 1: Complex heterogeneous appearance to the liver including masses of the left hepatic lobe measuring up to 3 cm. Cannot exclude metastatic disease. 2: Thickened gallbladder containing sludge and pericholecystic fluid. There is fluid adjacent to the gallbladder which may represent bowel, although abscess is not excluded. General Surgery following 01/20/2023: Repeat CT abdomen/pelvis ordered with IV and oral contrast by General surgery hepatic drains placed anterior and posteriorly. Fluid sent for culture. GI following - colonoscopy done, HIDA is negative Wound cultures positive for Heavy growth of Prevotella species and Streptococcus anginosus/constellatus Continue Metronidazole and Rocephin IV. Follow-up susceptibility Monitor WBC, which is trending down Blood cultures are -ve colonic polyps removed and sent to pathology - benign . The cecal polyp is large and is obstructing the appendiceal lumen continue PPI. Zofran PRN. continue pain management if abdominal pain returns. s/p Extended right hemicolectomy with ileo transverse hand-sewn anastomosis, drainage of multiple right upper quadrant and perigastric abscesses, repair gastric antral perforation, omentoplasty, performed on 01/23 Follow-up CBC, CMP, magnesium, phosphorus level, replete electrolytes accordingly Patient has passed gas, patient and p.o., denies abdomen pain, nausea vomiting Labs reviewed, patient afebrile, blood pressure stable (2) Emphysematous cholecystitis: Code(s): K81.0 - Acute cholecystitis Status: Ruled-out Assessment and Plan: Please see above management under Hepatic Abcess (3) Hypokalemia: Code(s): E87.6 - Hypokalemia Status: Acute Assessment and Plan: Patient's potassium levels have been persistently low Replaced with potassium chloride Monitor potassium level, replete accordingly (4) Anemia: Qualifiers: Anemia type: unspecified type Qualified Code(s): D64.9 - Anemia, unspecified Code(s): D64.9 - Anemia, unspecified Status: Acute Assessment and Plan: H&H stable for now, continue to monitor no obvious signs of bleed iron supplementation if needed (5) Weight loss: Code(s): R63.4 - Abnormal weight loss Status: Chronic Assessment and Plan: likely related to multiple factors, possible liver abscess, obstruction and lack of intake r/t pain dietary consulted - will need supplementation (6) Marijuana abuse, continuous: Code(s): F12.10 - Cannabis abuse, uncomplicated Status: Acute Subjective Date/time seen: 01/23/23 08:06 Interval history: I saw exam patient today. Status post extended right hemicolectomy with ileo transverse hand-sewn anastomosis, drainage of multiple right upper quadrant and perigastric abscesses, repair gastric antral perforation, omentoplasty day 1. Patient denies abdomen pain, nausea vomiting. Patient had a bowel movement yesterday after the surgical procedure Exam Narrative: PHYSICAL EXAMINATION: Vital signs: Please see the chart General physical exam: Underwent patient, lying in bed, cooperative with exam, appears in no acute distress Head/eyes: Atraumatic, EOMI, PERRLA ENT: Moist mucous membranes, nasal passages clear Neck: Supple, full range of motion, trachea midline CV
[2023-01-23 08:12] VITALS: BP 121/65; PULSE 79; RESP 16; TEMP 36.7; O2SAT 95
[2023-01-23] MEDS: cefTRIAXone 2 GM/NS 100 ML 2 GM/100 ML BAG IVPB (08:14)
[2023-01-23] MEDS: PANTOPRAZOLE SODIUM IV 40 MG VIAL IV PUSH (08:23)
[2023-01-23] MEDS: ENOXAPARIN 30 MG/0.3 ML SYRINGE SUB-Q (08:23)
[2023-01-23 09:01] LABS: Magnesium 1.6 mg/dL (1.6-2.3); Phosphorus 3.6 mg/dL (2.5-4.5)
[2023-01-23 12:01] VITALS: BP 137/72; PULSE 83; RESP 16; TEMP 37.1; O2SAT 94
[2023-01-23] MEDS: ONDANSETRON INJ 4 MG/2 ML VIAL IV PUSH (13:12)
[2023-01-23 16:12] VITALS: BP 130/67; PULSE 82; RESP 16; TEMP 36.8; O2SAT 95
--- NOTE | 2023-01-23 17:01 | PM.PNGS ---
Progress Note: A&P Assessment and Plan (1) Neoplasm of ascending colon: Code(s): D49.0 - Neoplasm of unspecified behavior of digestive system Status: Acute Assessment and Plan: Biopsies suggested tubular adenoma of both the ileocecal valve and distal transverse colon. At surgery, there was a hard mass in the cecum. Appendix was very dilated, more than the 21 mm described on the CT scan. Extended right hemicolectomy was performed with hand-sewn ileotransverse anastomosis. Pathology is pending. Patient not nauseated and not much output from NG tube. Will go ahead and DC NG tube but keep him NPO except ice chips. (2) Perforated gastric ulcer: Code(s): K25.5 - Chronic or unspecified gastric ulcer with perforation Status: Acute Assessment and Plan: Likely the cause of the perihepatic, intrahepatic, and perigastric abscesses. Located on the antrum of the lesser curvature of the stomach. Repaired and omental plasty performed. Abscesses thoroughly broken up and drained. Continue ceftriaxone. Continue IV pantoprazole. (3) Hepatic abscess: Code(s): K75.0 - Abscess of liver Status: Acute Assessment and Plan: As above (4) Protein-calorie malnutrition, severe: Code(s): E43 - Unspecified severe protein-calorie malnutrition Status: Chronic Assessment and Plan: Hopefully can get patient started on some oral nutrition tomorrow. Nutritional status improved prior to his surgery. Subjective Subjective Date/Time Seen: 01/23/23 17:01 Post Op day: 1 Patient reports: bowel movement, afebrile and other (Biggest complaint is nasogastric tube) Exam Const: General: no acute distress, alert, awake and underweight Orientation/consciousness: No confusion GI: Inspection: non-distended, incision (Dressing dry and intact) and scaphoid GI Palp: Yes Firmness to palpation present (GI) and Yes Tenderness to palpation present (GI) (Mild without peritoneal signs) Auscultation: Hypoactive bowel sounds present Objective Data Vital Signs Vital Signs: Vital Signs - 24 hr 01/22/23 17:05 01/22/23 17:23 01/22/23 17:20 Temperature 36.2 C L Pulse Rate 76 77 70 Respiratory Rate 16 24 H 12 Blood Pressure 145/81 H 148/77 H 148/77 H Pulse Oximetry 100 100 100 Oxygen Delivery Simple Face Mask Simple Face Mask Simple Face Mask Oxygen Flow Rate 6 8 8 01/22/23 17:35 01/22/23 17:50 01/22/23 18:05 Temperature Pulse Rate 68 71 69 Respiratory Rate 25 H 15 13 Blood Pressure 152/82 H 150/78 H 145/75 H Pulse Oximetry 100 95 100 Oxygen Delivery Simple Face Mask Room Air Room Air Oxygen Flow Rate 8 01/22/23 18:20 01/22/23 18:50 01/22/23 19:05 Temperature 36.6 C 36.9 C Pulse Rate 72 74 100 Respiratory Rate 14 16 18 Blood Pressure 148/78 H 144/74 H 146/87 H Pulse Oximetry 95 95 95 Oxygen Delivery Room Air Oxygen Flow Rate 01/22/23 19:12 01/22/23 20:12 01/22/23 23:55 Temperature 36.2 C L 36.9 C 36.9 C Pulse Rate 115 H 96 83 Respiratory Rate 14 14 13 Blood Pressure 132/81 139/75 139/75 Pulse Oximetry 96 95 95 Oxygen Delivery Oxygen Flow Rate 01/23/23 04:12 01/23/23 08:12 01/23/23 08:20 Temperature 36.7 C 36.7 C Pulse Rate 80 79 Respiratory Rate 13 16 Blood Pressure 147/79 H 121/65 Pulse Oximetry 97 95 Oxygen Delivery Room Air Oxygen Flow Rate 01/23/23 12:01 01/23/23 16:12 Temperature 37.1 C 36.8 C Pulse Rate 83 82 Respiratory Rate 16 16 Blood Pressure 137/72 130/67 Pulse Oximetry 94 95 Oxygen Delivery Oxygen Flow Rate Intake/Output Intake/Output: Intake & Output 01/20/23 01/21/23 01/22/23 01/23/23 23:59 23:59 23:59 23:59 Intake Total 5790 3958 2568 2500 Output Total 1599 1325 1180 1505 Balance 4191 2633 1388 995 Meds/Results Medications: Active Medications Generic Name Dose Route Start Last Admin Trade Name Freq PRN Reason Stop Dose Admin Dextrose 12.5 gm 01/15/23 09:19 Dextrose 50% 25 G
[2023-01-23 20:45] VITALS: BP 148/80; PULSE 81; RESP 16; TEMP 36.9; O2SAT 96
[2023-01-24] MEDS: IBUPROFEN IV 800 MG/200 ML 800 MG/200 ML BAG 400 MG IVPB ×4 (04:33→23:33)
[2023-01-24 05:14] VITALS: BP 139/82; PULSE 82; RESP 16; TEMP 37.2; O2SAT 96
[2023-01-24 06:23] LABS: Hemoglobin 10.5 g/dL (14.0-18.0); Mean Corpuscular HGB Conc 31.8 g/dl (32-36); Mean Corpuscular Hemoglobin 28.6 pg (26-34); Mean Corpuscular Volume 89.9 fl (80-100); Mean Platelet Volume 9.3 fl (7.4-10.4); Platelet Count Result 263 k/mm3 (150-375); Red Blood Count 3.67 M/mm3 (4.6-6.20); Red Cell Distribution Width 15.9 % (11.5-14.5)
[2023-01-24 06:39] LABS: Anion Gap 1 mmol/L (8-16); Blood Urea Nitrogen 12 mg/dL (9-20); Calcium 7.4 mg/dL (8.4-10.2); Carbon Dioxide 28 mmol/L (22-30); Chloride 107 mmol/L (98-107); Estimated CRCL calculation 78 ml/min; Estimated Glomerular Filt Rate > 60; Glucose 68 mg/dL (65-110); Magnesium 1.7 mg/dL (1.6-2.3); Phosphorus 2.8 mg/dL (2.5-4.5); Potassium 4.1 mmol/L (3.4-5.0); Sodium 136 mmol/L (137-145)
--- NOTE | 2023-01-24 07:52 | P.PNIM_ITS ---
Progress Note: A&P Assessment and Plan (1) Hepatic abscess: Code(s): K75.0 - Abscess of liver Status: Acute Assessment and Plan: * Abscess of liver, gallbladder perforation cT abd/pelvis (01/12) - Dilated gallbladder with gas involving the gallbladder wall as well as air-fluid level in the gallbladder, suspicious for an emphysematous cholecystitis. There is gas extending into the biliary tract with possible perforation along the inferior medial margin of the gallbladder, suspicious for perforation with abscess. There is free air along the liver margin inferiorly and anteriorly. * US of abdomen (01/14) - 1: Complex heterogeneous appearance to the liver including masses of the left hepatic lobe measuring up to 3 cm. Cannot exclude metastatic disease. 2: Thickened gallbladder containing sludge and aaliyah cholecystic fluid. There is fluid adjacent to the gallbladder which may represent bowel, although abscess is not excluded. * General Surgery following * 01/20/2023: Repeat CT abdomen/pelvis ordered with IV and oral contrast by General surgery * hepatic drains placed anterior and posteriorly. Fluid sent for culture. * GI following - colonoscopy done, HIDA is negative * Wound cultures positive for Heavy growth of Prevotella species and Streptococcus anginosus/constellatus * Continue Metronidazole and Rocephin IV. * Follow-up susceptibility Monitor WBC, which is trending down * Blood cultures are -ve colonic polyps removed and sent to pathology - benign * . The cecal polyp is large and is obstructing the appendiceal lumen * continue PPI. Zofran PRN. * continue pain management if abdominal pain returns. s/p Extended right hemicolectomy with ileo transverse hand-sewn anastomosis, drainage of multiple right upper quadrant and perigastric abscesses, repair gastric antral perforation, omentoplasty, performed on 01/23 Follow-up CBC, CMP, magnesium, phosphorus level, replete electrolytes accordingly Patient has passed gas, patient and p.o., denies abdomen pain, nausea vomiting Labs reviewed, patient afebrile, blood pressure stable Patient tolerated clear diet well today (2) Emphysematous cholecystitis: Code(s): K81.0 - Acute cholecystitis Status: Ruled-out Assessment and Plan: * Please see above management under Hepatic Abcess (3) Hypokalemia: Code(s): E87.6 - Hypokalemia Status: Acute Assessment and Plan: * Patient's potassium levels have been persistently low * Replaced with potassium chloride * Monitor potassium level, replete accordingly (4) Anemia: Qualifiers: Anemia type: unspecified type Qualified Code(s): D64.9 - Anemia, unspecified Code(s): D64.9 - Anemia, unspecified Status: Acute Assessment and Plan: * H&H stable for now, continue to monitor * no obvious signs of bleed * iron supplementation if needed (5) Weight loss: Code(s): R63.4 - Abnormal weight loss Status: Chronic Assessment and Plan: * likely related to multiple factors, possible liver abscess, obstruction and lack of intake r/t pain * dietary consulted - will need supplementation (6) Marijuana abuse, continuous: Code(s): F12.10 - Cannabis abuse, uncomplicated Status: Acute Subjective Date/time seen: 01/24/23 07:52 Interval history: I saw exam patient today. Status post extended right hemicolectomy with ileo transverse hand-sewn anastomosis, drainage of multiple right upper quadrant and perigastric abscesses, repair gastric antral perforation, omentoplasty day 2. Patient miladys
--- NOTE | 2023-01-24 07:52 | PM.IMPN ---
Progress Note: A&P Assessment and Plan (1) Hepatic abscess: Code(s): K75.0 - Abscess of liver Status: Acute Assessment and Plan: Abscess of liver, gallbladder perforation cT abd/pelvis (01/12) - Dilated gallbladder with gas involving the gallbladder wall as well as air-fluid level in the gallbladder, suspicious for an emphysematous cholecystitis. There is gas extending into the biliary tract with possible perforation along the inferior medial margin of the gallbladder, suspicious for perforation with abscess. There is free air along the liver margin inferiorly and anteriorly. US of abdomen (01/14) - 1: Complex heterogeneous appearance to the liver including masses of the left hepatic lobe measuring up to 3 cm. Cannot exclude metastatic disease. 2: Thickened gallbladder containing sludge and pericholecystic fluid. There is fluid adjacent to the gallbladder which may represent bowel, although abscess is not excluded. General Surgery following 01/20/2023: Repeat CT abdomen/pelvis ordered with IV and oral contrast by General surgery hepatic drains placed anterior and posteriorly. Fluid sent for culture. GI following - colonoscopy done, HIDA is negative Wound cultures positive for Heavy growth of Prevotella species and Streptococcus anginosus/constellatus Continue Metronidazole and Rocephin IV. Follow-up susceptibility Monitor WBC, which is trending down Blood cultures are -ve colonic polyps removed and sent to pathology - benign . The cecal polyp is large and is obstructing the appendiceal lumen continue PPI. Zofran PRN. continue pain management if abdominal pain returns. s/p Extended right hemicolectomy with ileo transverse hand-sewn anastomosis, drainage of multiple right upper quadrant and perigastric abscesses, repair gastric antral perforation, omentoplasty, performed on 01/23 Follow-up CBC, CMP, magnesium, phosphorus level, replete electrolytes accordingly Patient has passed gas, patient and p.o., denies abdomen pain, nausea vomiting Labs reviewed, patient afebrile, blood pressure stable Patient tolerated clear diet well today (2) Emphysematous cholecystitis: Code(s): K81.0 - Acute cholecystitis Status: Ruled-out Assessment and Plan: Please see above management under Hepatic Abcess (3) Hypokalemia: Code(s): E87.6 - Hypokalemia Status: Acute Assessment and Plan: Patient's potassium levels have been persistently low Replaced with potassium chloride Monitor potassium level, replete accordingly (4) Anemia: Qualifiers: Anemia type: unspecified type Qualified Code(s): D64.9 - Anemia, unspecified Code(s): D64.9 - Anemia, unspecified Status: Acute Assessment and Plan: H&H stable for now, continue to monitor no obvious signs of bleed iron supplementation if needed (5) Weight loss: Code(s): R63.4 - Abnormal weight loss Status: Chronic Assessment and Plan: likely related to multiple factors, possible liver abscess, obstruction and lack of intake r/t pain dietary consulted - will need supplementation (6) Marijuana abuse, continuous: Code(s): F12.10 - Cannabis abuse, uncomplicated Status: Acute Subjective Date/time seen: 01/24/23 07:52 Interval history: I saw exam patient today. Status post extended right hemicolectomy with ileo transverse hand-sewn anastomosis, drainage of multiple right upper quadrant and perigastric abscesses, repair gastric antral perforation, omentoplasty day 2. Patient denies abdomen pain, nausea vomiting. Patient had passed gas, patient tolerated a clear diet well today Exam Narrative: PHYSICAL EXAMINATION: Vital signs: Please see the chart General physical exam: Underwent patient, lying in bed, cooperative with exam, appears in no acute distress Head/eyes: Atraumatic, EOMI, PERRLA ENT: Moist mucous membranes, nasal passages clear Neck: Supple, fu
[2023-01-24] MEDS: cefTRIAXone 2 GM/NS 100 ML 2 GM/100 ML BAG IVPB (08:05)
[2023-01-24] MEDS: PANTOPRAZOLE SODIUM IV 40 MG VIAL IV PUSH (08:27)
[2023-01-24] MEDS: ENOXAPARIN 40 MG/0.4 ML SYRINGE SUB-Q (08:28)
[2023-01-24 14:00] VITALS: BP 132/73; PULSE 94; RESP 14; TEMP 36.5; O2SAT 98
[2023-01-24] MEDS: KCL 40 MEQ/0.9% SOD CHL 1,000 ML 125 ML IV CONT (14:24)
--- NOTE | 2023-01-24 14:52 | PM.PNGS ---
Progress Note: A&P Assessment and Plan (1) Perforated gastric ulcer: Code(s): K25.5 - Chronic or unspecified gastric ulcer with perforation Status: Acute Assessment and Plan: Oversewn and patient on Protonix twice a day. (2) Hypokalemia: Code(s): E87.6 - Hypokalemia Status: Acute Assessment and Plan: Resolved, potassium 4.1 today (3) Hepatic abscess: Code(s): K75.0 - Abscess of liver Status: Acute Assessment and Plan: Drained at surgery. Almost certainly from perforated gastric ulcer. No purulent fluid from BRIANNA drain. (4) Colon polyps: Qualifiers: Colon polyp type: adenomatous Colon location: unspecified part of colon Qualified Code(s): D12.6 - Benign neoplasm of colon, unspecified Code(s): K63.5 - Polyp of colon Status: Chronic Assessment and Plan: Extended right hemicolectomy performed. Pathology pending. Bowel function returned with several bowel movements. Will go ahead and start full liquids with nutritional supplements. Will give Imodium for diarrhea. Continue IV fluids for now with patient having multiple stools. (5) Protein-calorie malnutrition, severe: Code(s): E43 - Unspecified severe protein-calorie malnutrition Status: Chronic Assessment and Plan: Will give nutritional supplements with full liquids. He likes Ensure. (6) Anemia: Qualifiers: Anemia type: unspecified type Qualified Code(s): D64.9 - Anemia, unspecified Code(s): D64.9 - Anemia, unspecified Status: Acute Assessment and Plan: Stable at about 10 and 30. He received 2 units packed cells during surgery. Continue to monitor. Subjective Subjective Date/Time Seen: 01/24/23 14:52 Post Op day: 2 Patient reports: no new complaints, feels better, pain is less, bowel movement, diarrhea and afebrile Exam Const: General: comfortable and no acute distress Nutritional Appearance: malnourished Orientation/consciousness: patient oriented x3 GI: Inspection: non-distended, incision (Dry and healing well) and scaphoid GI Palp: Yes Soft to palpation, Yes Tenderness to palpation present (GI) (Mild incisional tenderness), No Guarding due to palpation present (GI) and No Rebound tenderness present Neuro: General: patient oriented x3 and no focal motor deficits Extrem: General: no calf tenderness and no edema Psych: Affect: normal affect Insight: Good insight present (Psych) Judgement: Good judgement present (Psych) Objective Data Vital Signs Vital Signs: Vital Signs - 24 hr 01/23/23 16:12 01/23/23 20:45 01/24/23 05:14 Temperature 36.8 C 36.9 C 37.2 C Pulse Rate 82 81 82 Respiratory Rate 16 16 16 Blood Pressure 130/67 148/80 H 139/82 Pulse Oximetry 95 96 96 Oxygen Delivery 01/24/23 08:00 Temperature Pulse Rate Respiratory Rate Blood Pressure Pulse Oximetry Oxygen Delivery Room Air Intake/Output Intake/Output: Intake & Output 01/21/23 01/22/23 01/23/23 01/24/23 23:59 23:59 23:59 23:59 Intake Total 3958 2568 3700 1500 Output Total 1325 1180 2475 1845 Balance 2633 1388 1225 -345 Meds/Results Medications: Active Medications Generic Name Dose Route Start Last Admin Trade Name Freq PRN Reason Stop Dose Admin Acetaminophen 500 mg 01/24/23 14:48 Acetaminophen 500 Mg Tablet PO Q6H PRN Mild Pain (1-3) or Fever Hydrocodone Bitart/Acetaminophen 1 tab 01/24/23 14:48 Hydrocodone/Acetaminophen (*Crx) 5-325 Mg Tablet PO Q4H PRN Pain Rated 4-6 Hydrocodone Bitart/Acetaminophen 1 tab 01/24/23 14:48 Hydrocodone/Acetaminophen (*Crx) 10-325 Mg Tablet PO Q6H PRN Pain Rated 7-10 Dextrose 12.5 gm 01/15/23 09:19 Dextrose 50% 25 Gm/50 Ml Syringe IV PUSH PRN PRN Hypoglycemia Protocol Diphenhydramine HCl 50 mg 01/17/23 10:32 Diphenhydramine Hcl Cap 25 Mg Capsule PO Q6H PRN Itching Enoxaparin Sodium
[2023-01-24] MEDS: LOPERAMIDE HCL 2 MG CAPSULE PO ×2 (15:53→21:00)
[2023-01-24 20:35] VITALS: BP 133/76; PULSE 72; RESP 17; TEMP 36.8; O2SAT 93
[2023-01-24] MEDS: PANTOPRAZOLE 40 MG TABLET PO (21:00)
[2023-01-24] MEDS: KCL 40 MEQ/0.9% SOD CHL 1,000 ML 80 ML IV CONT (23:35)
[2023-01-25 00:33] VITALS: TEMP 36.8
[2023-01-25 05:07] VITALS: BP 132/74; PULSE 69; RESP 16; TEMP 37.1; O2SAT 96
--- NOTE | 2023-01-25 06:23 | PM.PNGS ---
Progress Note: A&P Assessment and Plan (1) Perforated gastric ulcer: Code(s): K25.5 - Chronic or unspecified gastric ulcer with perforation Status: Acute Assessment and Plan: Suture repair and omentoplasty performed during his surgery 3 days ago. On Protonix. (2) Hepatic abscess: Code(s): K75.0 - Abscess of liver Status: Acute Assessment and Plan: Drained at surgery. Preliminary culture results show only white blood cells no organisms. Drain is only draining ascites. Will discontinue. (3) Colon polyps: Qualifiers: Colon location: unspecified part of colon Colon polyp type: adenomatous Qualified Code(s): D12.6 - Benign neoplasm of colon, unspecified Code(s): K63.5 - Polyp of colon Status: Chronic Assessment and Plan: Extended right hemicolectomy performed. Pathology pending. Bowel function has already returned and in fact patient having some diarrhea. Will advanced to low-fiber diet and continue Imodium for now. (4) Anemia: Qualifiers: Anemia type: unspecified type Qualified Code(s): D64.9 - Anemia, unspecified Code(s): D64.9 - Anemia, unspecified Status: Acute Assessment and Plan: Asymptomatic. Continue to monitor. Stable (5) Hypokalemia: Code(s): E87.6 - Hypokalemia Status: Acute Assessment and Plan: Improved. 3.8 today. (6) Protein-calorie malnutrition, severe: Code(s): E43 - Unspecified severe protein-calorie malnutrition Status: Chronic Assessment and Plan: Diet advanced. Eating well. Subjective Subjective Date/Time Seen: 01/25/23 06:23 Post Op day: 3 Patient reports: feels better, pain is less, tolerating liquids well, diarrhea and afebrile Exam Const: General: comfortable and no acute distress Orientation/consciousness: patient oriented x3 GI: Inspection: non-distended, incision (Dry and healing well) and scaphoid GI Palp: Yes Soft to palpation, Yes Tenderness to palpation present (GI) (Minimal), No Guarding due to palpation present (GI) and No Rebound tenderness present Auscultation: normal bowel sounds Neuro: General: patient oriented x3 and no focal motor deficits Extrem: General: no calf tenderness and no edema Psych: Affect: normal affect Insight: Good insight present (Psych) Judgement: Good judgement present (Psych) Objective Data Vital Signs Vital Signs: Vital Signs - 24 hr 01/24/23 08:00 01/24/23 14:00 01/24/23 20:35 Temperature 36.5 C 36.8 C Pulse Rate 94 72 Respiratory Rate 14 17 Blood Pressure 132/73 133/76 Pulse Oximetry 98 93 Oxygen Delivery Room Air 01/25/23 00:33 01/25/23 05:07 Temperature 36.8 C 37.1 C Pulse Rate 69 Respiratory Rate 16 Blood Pressure 132/74 Pulse Oximetry 96 Oxygen Delivery Intake/Output Intake/Output: Intake & Output 01/22/23 01/23/23 01/24/23 01/25/23 23:59 23:59 23:59 23:59 Intake Total 2568 3700 3420 Output Total 1180 2475 2535 400 Balance 1388 1225 885 -400 Meds/Results Medications: Active Medications Generic Name Dose Route Start Last Admin Trade Name Freq PRN Reason Stop Dose Admin Acetaminophen 500 mg 01/24/23 14:48 Acetaminophen 500 Mg Tablet PO Q6H PRN Mild Pain (1-3) or Fever Hydrocodone Bitart/Acetaminophen 1 tab 01/24/23 14:48 Hydrocodone/Acetaminophen (*Crx) 5-325 Mg Tablet PO Q4H PRN Pain Rated 4-6 Hydrocodone Bitart/Acetaminophen 1 tab 01/24/23 14:48 Hydrocodone/Acetaminophen (*Crx) 10-325 Mg Tablet PO Q6H PRN Pain Rated 7-10 Dextrose 12.5 gm 01/15/23 09:19 Dextrose 50% 25 Gm/50 Ml Syringe IV PUSH PRN PRN Hypoglycemia Protocol Diphenhydramine HCl 50 mg 01/17/23 10:32 Diphenhydramine Hcl Cap 25 Mg Capsule PO Q6H PRN Itching Enoxaparin Sodium 40 mg 01/24/23 09:00 01/24/23 08:28 Enoxaparin 40 Mg/0.4 Ml Syringe SUB-Q 40 mg DAILY [facility] Administratio
[2023-01-25] MEDS: IBUPROFEN IV 800 MG/200 ML 800 MG/200 ML BAG 400 MG IVPB ×2 (06:33→20:09)
[2023-01-25] MEDS: LOPERAMIDE HCL 2 MG CAPSULE PO (06:33)
[2023-01-25 06:54] LABS: Hemoglobin 10.3 g/dL (14.0-18.0); Mean Corpuscular HGB Conc 32.2 g/dl (32-36); Mean Corpuscular Hemoglobin 28.9 pg (26-34); Mean Corpuscular Volume 89.9 fl (80-100); Mean Platelet Volume 9.2 fl (7.4-10.4); Platelet Count Result 265 k/mm3 (150-375); Red Blood Count 3.56 M/mm3 (4.6-6.20); Red Cell Distribution Width 15.6 % (11.5-14.5); White Blood Count 9.5 K/mm3 (4.5-10.0)
[2023-01-25 07:06] LABS: Anion Gap -1 mmol/L (8-16); Blood Urea Nitrogen 10 mg/dL (9-20); Calcium 7.4 mg/dL (8.4-10.2); Carbon Dioxide 27 mmol/L (22-30); Chloride 108 mmol/L (98-107); Estimated CRCL calculation 90 ml/min; Estimated Glomerular Filt Rate > 60; Glucose 91 mg/dL (65-110); Magnesium 1.8 mg/dL (1.6-2.3); Potassium 3.8 mmol/L (3.4-5.0); Sodium 134 mmol/L (137-145)
[2023-01-25] MEDS: ENOXAPARIN 40 MG/0.4 ML SYRINGE SUB-Q (08:16)
[2023-01-25] MEDS: cefTRIAXone 2 GM/NS 100 ML 2 GM/100 ML BAG IVPB (08:16)
[2023-01-25] MEDS: PANTOPRAZOLE 40 MG TABLET PO ×2 (08:16→20:08)
--- NOTE | 2023-01-25 08:17 | P.PNIM_ITS ---
Progress Note: A&P Assessment and Plan (1) Hepatic abscess: Code(s): K75.0 - Abscess of liver Status: Acute Assessment and Plan: * Abscess of liver, gallbladder perforation cT abd/pelvis (01/12) - Dilated gallbladder with gas involving the gallbladder wall as well as air-fluid level in the gallbladder, suspicious for an emphysematous cholecystitis. There is gas extending into the biliary tract with possible perforation along the inferior medial margin of the gallbladder, suspicious for perforation with abscess. There is free air along the liver margin inferiorly and anteriorly. * US of abdomen (01/14) - 1: Complex heterogeneous appearance to the liver including masses of the left hepatic lobe measuring up to 3 cm. Cannot exclude metastatic disease. 2: Thickened gallbladder containing sludge and aaliyah cholecystic fluid. There is fluid adjacent to the gallbladder which may represent bowel, although abscess is not excluded. * General Surgery following * 01/20/2023: Repeat CT abdomen/pelvis ordered with IV and oral contrast by General surgery * hepatic drains placed anterior and posteriorly. Fluid sent for culture. * GI following - colonoscopy done, HIDA is negative * Wound cultures positive for Heavy growth of Prevotella species and Streptococcus anginosus/constellatus * Continue Metronidazole and Rocephin IV. * Follow-up susceptibility Monitor WBC, which is trending down * Blood cultures are -ve colonic polyps removed and sent to pathology - benign * . The cecal polyp is large and is obstructing the appendiceal lumen * continue PPI. Zofran PRN. * continue pain management if abdominal pain returns. s/p Extended right hemicolectomy with ileo transverse hand-sewn anastomosis, drainage of multiple right upper quadrant and perigastric abscesses, repair gastric antral perforation, omentoplasty, performed on 01/23 Follow-up CBC, CMP, magnesium, phosphorus level, replete electrolytes accordingly Patient has passed gas, patient and p.o., denies abdomen pain, nausea vomiting Labs reviewed, patient afebrile, blood pressure stable Patient tolerated clear diet well today Hypophosphatemia, hypocalcemia, hyponatremia Follow-up ionized calcium, Replace with calcium carbonate, 500 mg t.i.d. p.o. Replace with Neutra-Phos 1 pack (2) Emphysematous cholecystitis: Code(s): K81.0 - Acute cholecystitis Status: Ruled-out Assessment and Plan: * Please see above management under Hepatic Abcess (3) Hypokalemia: Code(s): E87.6 - Hypokalemia Status: Acute Assessment and Plan: * Patient's potassium levels have been persistently low * Replaced with potassium chloride * Monitor potassium level, replete accordingly * corrected (4) Anemia: Qualifiers: Anemia type: unspecified type Qualified Code(s): D64.9 - Anemia, unspecified Code(s): D64.9 - Anemia, unspecified Status: Acute Assessment and Plan: * H&H stable for now, continue to monitor * no obvious signs of bleed * iron supplementation if needed * Follow iron panel (5) Weight loss: Code(s): R63.4 - Abnormal weight loss Status: Chronic Assessment and Plan: * likely related to multiple factors, possible liver abscess, obstruction and lack of intake r/t pain * dietary consulted - will need supplementation (6) Marijuana abuse, continuous: Code(s): F12.10 - Cannabis abuse, uncomplicated Status: Acute Subjective Date/time seen: 01/25/23 08:17 Interval history: I saw exam patient today. Stat
--- NOTE | 2023-01-25 08:17 | PM.IMPN ---
Progress Note: A&P Assessment and Plan (1) Hepatic abscess: Code(s): K75.0 - Abscess of liver Status: Acute Assessment and Plan: Abscess of liver, gallbladder perforation cT abd/pelvis (01/12) - Dilated gallbladder with gas involving the gallbladder wall as well as air-fluid level in the gallbladder, suspicious for an emphysematous cholecystitis. There is gas extending into the biliary tract with possible perforation along the inferior medial margin of the gallbladder, suspicious for perforation with abscess. There is free air along the liver margin inferiorly and anteriorly. US of abdomen (01/14) - 1: Complex heterogeneous appearance to the liver including masses of the left hepatic lobe measuring up to 3 cm. Cannot exclude metastatic disease. 2: Thickened gallbladder containing sludge and pericholecystic fluid. There is fluid adjacent to the gallbladder which may represent bowel, although abscess is not excluded. General Surgery following 01/20/2023: Repeat CT abdomen/pelvis ordered with IV and oral contrast by General surgery hepatic drains placed anterior and posteriorly. Fluid sent for culture. GI following - colonoscopy done, HIDA is negative Wound cultures positive for Heavy growth of Prevotella species and Streptococcus anginosus/constellatus Continue Metronidazole and Rocephin IV. Follow-up susceptibility Monitor WBC, which is trending down Blood cultures are -ve colonic polyps removed and sent to pathology - benign . The cecal polyp is large and is obstructing the appendiceal lumen continue PPI. Zofran PRN. continue pain management if abdominal pain returns. s/p Extended right hemicolectomy with ileo transverse hand-sewn anastomosis, drainage of multiple right upper quadrant and perigastric abscesses, repair gastric antral perforation, omentoplasty, performed on 01/23 Follow-up CBC, CMP, magnesium, phosphorus level, replete electrolytes accordingly Patient has passed gas, patient and p.o., denies abdomen pain, nausea vomiting Labs reviewed, patient afebrile, blood pressure stable Patient tolerated clear diet well today Hypophosphatemia, hypocalcemia, hyponatremia Follow-up ionized calcium, Replace with calcium carbonate, 500 mg t.i.d. p.o. Replace with Neutra-Phos 1 pack (2) Emphysematous cholecystitis: Code(s): K81.0 - Acute cholecystitis Status: Ruled-out Assessment and Plan: Please see above management under Hepatic Abcess (3) Hypokalemia: Code(s): E87.6 - Hypokalemia Status: Acute Assessment and Plan: Patient's potassium levels have been persistently low Replaced with potassium chloride Monitor potassium level, replete accordingly corrected (4) Anemia: Qualifiers: Anemia type: unspecified type Qualified Code(s): D64.9 - Anemia, unspecified Code(s): D64.9 - Anemia, unspecified Status: Acute Assessment and Plan: H&H stable for now, continue to monitor no obvious signs of bleed iron supplementation if needed Follow iron panel (5) Weight loss: Code(s): R63.4 - Abnormal weight loss Status: Chronic Assessment and Plan: likely related to multiple factors, possible liver abscess, obstruction and lack of intake r/t pain dietary consulted - will need supplementation (6) Marijuana abuse, continuous: Code(s): F12.10 - Cannabis abuse, uncomplicated Status: Acute Subjective Date/time seen: 01/25/23 08:17 Interval history: I saw exam patient today. Status postop day 2 Patient denies abdomen pain, nausea vomiting. Patient had passed gas, patient tolerated a clear diet well today, labs reviewed, patient has mild hyponatremia, hypophosphatemia, hypocalcemia Exam Narrative: PHYSICAL EXAMINATION: Vital signs: Please see the chart General physical exam: Underwent patient, lying in bed, cooperative with exam, appears in no acute distress Head/eyes: Atraumati
[2023-01-25] MEDS: POTASSIUM/PHOSPHORUS/SODIUM 1.5 GM PACKET 1 PACKET PO (09:04)
[2023-01-25] MEDS: CALCIUM CARBONATE (OSCAL) 500 MG TABLET PO ×3 (09:04→17:00)
[2023-01-25 10:33] LABS: Iron 18 ug/dL (49-181)
[2023-01-25 10:45] LABS: Percent Iron Saturation 15 % (20-50)
--- NOTE | 2023-01-25 11:06 | PCNFU ---
Nutrition Follow-Up Complete: Severe malnutrition related to chronic cancer as evidenced by weight loss 13%/6 months; NFPE findings of severe fat loss and moderate muscle loss. Goal:Adequate PO intake when diet is advanced Pt is progressing towards goal. Pt current nutrition is Low fiber. Nutrition recommendation: Add Ensure Enlive TID with meals, chocolate or strawberry Last recorded weight is 60 kg. Bowel Motility: +BM 01/25 Labs Reviewed: Hgb:10.3, HCT:32, NA:134, Cr:0.6 Meds Noted: zofran, KCL, protonix, lovenox Skin: surgical incisions Additional Notes: Pt diet advanced to low fiber, pt reports good appetite and intake. Agrees to drink Ensure Enlive, chocolate or strawberry flavor. Will send TID with meals. Monitoring for diet, intakes, weights, labs, plan of care Follow up in 5 days
[2023-01-25] MEDS: metroNIDAZOLE 500 MG TABLET PO ×2 (13:49→20:08)
[2023-01-25 14:00] VITALS: BP 155/71; PULSE 82; RESP 16; TEMP 36.8; O2SAT 98
[2023-01-25 20:43] VITALS: BP 153/78; PULSE 74; RESP 16; TEMP 36.6; O2SAT 98
[2023-01-25 21:21] LABS: Ionized Calcium 4.6 mg/dL (4.7-5.5)
[2023-01-26 05:00] VITALS: BP 137/74; PULSE 72; RESP 16; TEMP 36.4; O2SAT 99
--- NOTE | 2023-01-26 05:30 | PC.NURSE ---
Pt called nurse into room for new onset drainage from previous BRIANNA drain site as well as drainage from lower portion of midline incision. This RN called the exchange line to reach Dr Bui. Call was returned by Dr Rosanna MD notified and would like dressing changes as needed for saturation. This RN asked MD when a call back is necessary related to changes in drainage.
[2023-01-26] MEDS: metroNIDAZOLE 500 MG TABLET PO ×3 (06:52→20:29)
[2023-01-26 07:01] LABS: Hematocrit 33.3 % (42.0-52.0); Hemoglobin 10.7 g/dL (14.0-18.0); Mean Corpuscular HGB Conc 32.1 g/dl (32-36); Mean Corpuscular Hemoglobin 29.1 pg (26-34); Mean Corpuscular Volume 90.5 fl (80-100); Mean Platelet Volume 9.8 fl (7.4-10.4); Platelet Count Result 298 k/mm3 (150-375); Red Blood Count 3.68 M/mm3 (4.6-6.20); Red Cell Distribution Width 15.7 % (11.5-14.5)
[2023-01-26 07:09] LABS: Anion Gap 9 mmol/L (8-16); Blood Urea Nitrogen 9 mg/dL (9-20); Calcium 7.5 mg/dL (8.4-10.2); Carbon Dioxide 23 mmol/L (22-30); Chloride 101 mmol/L (98-107); Estimated CRCL calculation 90 ml/min; Estimated Glomerular Filt Rate > 60; Glucose 94 mg/dL (65-110); Potassium 3.6 mmol/L (3.4-5.0); Sodium 133 mmol/L (137-145)
[2023-01-26 08:40] VITALS: O2SAT 96
[2023-01-26] MEDS: PANTOPRAZOLE 40 MG TABLET PO (08:45)
[2023-01-26] MEDS: ENOXAPARIN 40 MG/0.4 ML SYRINGE SUB-Q (08:45)
[2023-01-26] MEDS: CEFDINIR 300 MG CAPSULE PO ×2 (08:45→20:29)
[2023-01-26] MEDS: CALCIUM CARBONATE (OSCAL) 500 MG TABLET PO ×3 (08:45→17:15)
--- NOTE | 2023-01-26 09:22 | PM.PNGS ---
Progress Note: A&P Assessment and Plan (1) Perforated gastric ulcer: Code(s): K25.5 - Chronic or unspecified gastric ulcer with perforation Status: Acute Assessment and Plan: Repaired at surgery. Likely cause of the upper abdominal and hepatic abscesses. Will need EGD about 1 month after discharge. Can be done as outpatient. (2) Hepatic abscess: Code(s): K75.0 - Abscess of liver Status: Acute Assessment and Plan: Pretty much resolved after percutaneous drainage followed by surgical drainage. BRIANNA drain has been removed. Patient now on oral antibiotics. (3) Colon polyps: Qualifiers: Colon polyp type: adenomatous Colon location: unspecified part of colon Qualified Code(s): D12.6 - Benign neoplasm of colon, unspecified Code(s): K63.5 - Polyp of colon Status: Chronic Assessment and Plan: Pathology is pending. Cecal mass suspicious for malignancy. (4) Anemia: Qualifiers: Anemia type: unspecified type Qualified Code(s): D64.9 - Anemia, unspecified Code(s): D64.9 - Anemia, unspecified Status: Acute Assessment and Plan: H&H stable and in fact improving. (5) Hypokalemia: Code(s): E87.6 - Hypokalemia Status: Acute Assessment and Plan: Potassium 3.6 today. (6) Protein-calorie malnutrition, severe: Code(s): E43 - Unspecified severe protein-calorie malnutrition Status: Chronic Assessment and Plan: Advanced to solid food, regular diet, and also getting Ensure in live t.i.d.. Dietitian following. Subjective Subjective Date/Time Seen: 01/26/23 09:22 Post Op day: 4 Patient reports: no new complaints, pain is less, tolerating a regular diet, voiding w/o difficulty, bowel movement and afebrile Exam Const: General: comfortable and no acute distress Nutritional Appearance: thin and underweight Orientation/consciousness: patient oriented x3 GI: Inspection: non-distended, incision (Healing well) and scaphoid GI Palp: Yes Soft to palpation, Yes Tenderness to palpation present (GI) (Slight), No Guarding due to palpation present (GI), No Palpable mass present, No Ascites present and No Rebound tenderness present Auscultation: normal bowel sounds Neuro: General: patient oriented x3 and no focal motor deficits Extrem: General: no calf tenderness and no edema Psych: Affect: normal affect Insight: Good insight present (Psych) Judgement: Good judgement present (Psych) Objective Data Vital Signs Vital Signs: Vital Signs - 24 hr 01/25/23 14:00 01/25/23 20:43 01/26/23 05:00 Temperature 36.8 C 36.6 C 36.4 C L Pulse Rate 82 74 72 Respiratory Rate 16 16 16 Blood Pressure 155/71 H 153/78 H 137/74 Pulse Oximetry 98 98 99 Oxygen Delivery 01/26/23 08:40 Temperature Pulse Rate Respiratory Rate Blood Pressure Pulse Oximetry 96 Oxygen Delivery Room Air Intake/Output Intake/Output: Intake & Output 01/23/23 01/24/23 01/25/23 01/26/23 23:59 23:59 23:59 23:59 Intake Total 3700 3420 2558 250 Output Total 2475 2535 530 400 Balance 8372 414 0491 -150 Meds/Results Medications: Active Medications Generic Name Dose Route Start Last Admin Trade Name Freq PRN Reason Stop Dose Admin Acetaminophen 500 mg 01/24/23 14:48 Acetaminophen 500 Mg Tablet PO Q6H PRN Mild Pain (1-3) or Fever Hydrocodone Bitart/Acetaminophen 1 tab 01/24/23 14:48 Hydrocodone/Acetaminophen (*Crx) 5-325 Mg Tablet PO Q4H PRN Pain Rated 4-6 Hydrocodone Bitart/Acetaminophen 1 tab 01/24/23 14:48 Hydrocodone/Acetaminophen (*Crx) 10-325 Mg Tablet PO Q6H PRN Pain Rated 7-10 Calcium Carbonate 500 mg 01/25/23 08:00 01/26/23 08:45 Calcium Carbonate (Oscal) 500 Mg Tablet PO 500 mg TIDWM KULDIP Administration Cefdinir 300 mg 01/26/23 09:00 01/26/23 08:45 Cefdinir 300 Mg Capsule PO 01/27/23 21:01 300 mg Q12HR KULDIP Administration Dextrose 12
[2023-01-26 11:28] LABS: Ionized Calcium 4.9 mg/dL (4.7-5.5)
--- NOTE | 2023-01-26 13:55 | P.PNIM_ITS ---
Progress Note: A&P Assessment and Plan (1) Hepatic abscess: Code(s): K75.0 - Abscess of liver Status: Acute Assessment and Plan: * Abscess of liver, gallbladder perforation cT abd/pelvis (01/12) - Dilated gallbladder with gas involving the gallbladder wall as well as air-fluid level in the gallbladder, suspicious for an emphysematous cholecystitis. There is gas extending into the biliary tract with possible perforation along the inferior medial margin of the gallbladder, suspicious for perforation with abscess. There is free air along the liver margin inferiorly and anteriorly. * US of abdomen (01/14) - 1: Complex heterogeneous appearance to the liver including masses of the left hepatic lobe measuring up to 3 cm. Cannot exclude metastatic disease. 2: Thickened gallbladder containing sludge and aaliyah cholecystic fluid. There is fluid adjacent to the gallbladder which may represent bowel, although abscess is not excluded. * General Surgery following * 01/20/2023: Repeat CT abdomen/pelvis ordered with IV and oral contrast by General surgery * hepatic drains placed anterior and posteriorly. Fluid sent for culture. * GI following - colonoscopy done, HIDA is negative * Wound cultures positive for Heavy growth of Prevotella species and Streptococcus anginosus/constellatus * Continue Metronidazole and Rocephin IV. * Follow-up susceptibility Monitor WBC, which is trending down * Blood cultures are -ve colonic polyps removed and sent to pathology - benign * . The cecal polyp is large and is obstructing the appendiceal lumen * continue PPI. Zofran PRN. * continue pain management if abdominal pain returns. s/p Extended right hemicolectomy with ileo transverse hand-sewn anastomosis, drainage of multiple right upper quadrant and perigastric abscesses, repair gastric antral perforation, omentoplasty, performed on 01/23 Follow-up CBC, CMP, magnesium, phosphorus level, replete electrolytes accordingly Patient has passed gas, patient and p.o., denies abdomen pain, nausea vomiting Labs reviewed, patient afebrile, blood pressure stable Patient tolerated clear diet well 01/25 01/26 Advanced to solid food, regular diet, and also getting Ensure in live t.i.d..? Dietitian following. Hypophosphatemia, hypocalcemia, hyponatremia Follow-up ionized calcium, Replace with calcium carbonate, 500 mg t.i.d. p.o. sodium chloride 1 g t.i.d. p.o. Replace with Neutra-Phos 1 pack Electrolytes abnormality is partially corrected (2) Emphysematous cholecystitis: Code(s): K81.0 - Acute cholecystitis Status: Ruled-out Assessment and Plan: * Please see above management under Hepatic Abcess (3) Hypokalemia: Code(s): E87.6 - Hypokalemia Status: Acute Assessment and Plan: * Patient's potassium levels have been persistently low * Replaced with potassium chloride * Monitor potassium level, replete accordingly * corrected (4) Anemia: Qualifiers: Anemia type: unspecified type Qualified Code(s): D64.9 - Anemia, unspecified Code(s): D64.9 - Anemia, unspecified Status: Acute Assessment and Plan: * H&H stable for now, continue to monitor * no obvious signs of bleed * iron supplementation if needed * Follow iron panel (5) Weight loss: Code(s): R63.4 - Abnormal weight loss Status: Chronic Assessment and Plan: * likely related to multiple factors, possible liver abscess, obstruction and lack of intake r/t pain * dietary consulted - will need supplementation (6) Marijuana abuse, continuous: Code(
--- NOTE | 2023-01-26 13:55 | PM.IMPN ---
Progress Note: A&P Assessment and Plan (1) Hepatic abscess: Code(s): K75.0 - Abscess of liver Status: Acute Assessment and Plan: Abscess of liver, gallbladder perforation cT abd/pelvis (01/12) - Dilated gallbladder with gas involving the gallbladder wall as well as air-fluid level in the gallbladder, suspicious for an emphysematous cholecystitis. There is gas extending into the biliary tract with possible perforation along the inferior medial margin of the gallbladder, suspicious for perforation with abscess. There is free air along the liver margin inferiorly and anteriorly. US of abdomen (01/14) - 1: Complex heterogeneous appearance to the liver including masses of the left hepatic lobe measuring up to 3 cm. Cannot exclude metastatic disease. 2: Thickened gallbladder containing sludge and pericholecystic fluid. There is fluid adjacent to the gallbladder which may represent bowel, although abscess is not excluded. General Surgery following 01/20/2023: Repeat CT abdomen/pelvis ordered with IV and oral contrast by General surgery hepatic drains placed anterior and posteriorly. Fluid sent for culture. GI following - colonoscopy done, HIDA is negative Wound cultures positive for Heavy growth of Prevotella species and Streptococcus anginosus/constellatus Continue Metronidazole and Rocephin IV. Follow-up susceptibility Monitor WBC, which is trending down Blood cultures are -ve colonic polyps removed and sent to pathology - benign . The cecal polyp is large and is obstructing the appendiceal lumen continue PPI. Zofran PRN. continue pain management if abdominal pain returns. s/p Extended right hemicolectomy with ileo transverse hand-sewn anastomosis, drainage of multiple right upper quadrant and perigastric abscesses, repair gastric antral perforation, omentoplasty, performed on 01/23 Follow-up CBC, CMP, magnesium, phosphorus level, replete electrolytes accordingly Patient has passed gas, patient and p.o., denies abdomen pain, nausea vomiting Labs reviewed, patient afebrile, blood pressure stable Patient tolerated clear diet well 01/25 01/26 Advanced to solid food, regular diet, and also getting Ensure in live t.i.d..? Dietitian following. Hypophosphatemia, hypocalcemia, hyponatremia Follow-up ionized calcium, Replace with calcium carbonate, 500 mg t.i.d. p.o. sodium chloride 1 g t.i.d. p.o. Replace with Neutra-Phos 1 pack Electrolytes abnormality is partially corrected (2) Emphysematous cholecystitis: Code(s): K81.0 - Acute cholecystitis Status: Ruled-out Assessment and Plan: Please see above management under Hepatic Abcess (3) Hypokalemia: Code(s): E87.6 - Hypokalemia Status: Acute Assessment and Plan: Patient's potassium levels have been persistently low Replaced with potassium chloride Monitor potassium level, replete accordingly corrected (4) Anemia: Qualifiers: Anemia type: unspecified type Qualified Code(s): D64.9 - Anemia, unspecified Code(s): D64.9 - Anemia, unspecified Status: Acute Assessment and Plan: H&H stable for now, continue to monitor no obvious signs of bleed iron supplementation if needed Follow iron panel (5) Weight loss: Code(s): R63.4 - Abnormal weight loss Status: Chronic Assessment and Plan: likely related to multiple factors, possible liver abscess, obstruction and lack of intake r/t pain dietary consulted - will need supplementation (6) Marijuana abuse, continuous: Code(s): F12.10 - Cannabis abuse, uncomplicated Status: Acute Subjective Date/time seen: 01/26/23 13:55 Interval history: I saw exam patient today. Status postop day 3 Patient denies abdomen pain, nausea vomiting. Patient is advanced to regular diet, she tolerated well so far abs are reviewed, Exam Narrative: PHYSICAL EXAMINATION: Vital signs: Please see the chart Gen
[2023-01-26 13:56] VITALS: BP 138/77; PULSE 105; RESP 20; TEMP 36.3; O2SAT 100
[2023-01-26 15:31] LABS: Phosphorus 2.6 mg/dL (2.5-4.5)
[2023-01-26] MEDS: SODIUM CHLORIDE 500 MG TABLET 1000 MG PO (17:15)
--- NOTE | 2023-01-26 18:30 | PC.NURSE ---
Upon reassessment of the drainage, the abd, towel, and gown were all saturated. This RN called the MD again to notify him of the changes. MD states he is okay with the changes as the color has not changed and only the volume had increased.
[2023-01-26 21:17] VITALS: BP 134/64; PULSE 81; RESP 16; TEMP 36.8; O2SAT 97
[2023-01-27 04:36] VITALS: BP 143/72; PULSE 78; RESP 16; TEMP 36.6; O2SAT 97
[2023-01-27] MEDS: metroNIDAZOLE 500 MG TABLET PO ×3 (06:06→20:23)
[2023-01-27] MEDS: PANTOPRAZOLE 40 MG TABLET PO (08:59)
[2023-01-27] MEDS: CEFDINIR 300 MG CAPSULE PO ×2 (09:00→20:23)
[2023-01-27] MEDS: CALCIUM CARBONATE (OSCAL) 500 MG TABLET PO ×3 (09:00→20:23)
[2023-01-27] MEDS: SODIUM CHLORIDE 500 MG TABLET 1000 MG PO ×3 (09:00→20:23)
[2023-01-27] MEDS: ENOXAPARIN 40 MG/0.4 ML SYRINGE SUB-Q (09:00)
--- NOTE | 2023-01-27 10:03 | P.PNIM_ITS ---
Progress Note: A&P Assessment and Plan (1) Hepatic abscess: Code(s): K75.0 - Abscess of liver Status: Acute Assessment and Plan: * Abscess of liver, gallbladder perforation cT abd/pelvis (01/12) - Dilated gallbladder with gas involving the gallbladder wall as well as air-fluid level in the gallbladder, suspicious for an emphysematous cholecystitis. There is gas extending into the biliary tract with possible perforation along the inferior medial margin of the gallbladder, suspicious for perforation with abscess. There is free air along the liver margin inferiorly and anteriorly. * US of abdomen (01/14) - 1: Complex heterogeneous appearance to the liver including masses of the left hepatic lobe measuring up to 3 cm. Cannot exclude metastatic disease. 2: Thickened gallbladder containing sludge and aaliyah cholecystic fluid. There is fluid adjacent to the gallbladder which may represent bowel, although abscess is not excluded. * General Surgery following * 01/20/2023: Repeat CT abdomen/pelvis ordered with IV and oral contrast by General surgery * hepatic drains placed anterior and posteriorly. Fluid sent for culture. * GI following - colonoscopy done, HIDA is negative * Wound cultures positive for Heavy growth of Prevotella species and Streptococcus anginosus/constellatus * Continue Metronidazole and Rocephin IV. * Follow-up susceptibility Monitor WBC, which is trending down * Blood cultures are -ve colonic polyps removed and sent to pathology - benign * . The cecal polyp is large and is obstructing the appendiceal lumen * continue PPI. Zofran PRN. * continue pain management if abdominal pain returns. s/p Extended right hemicolectomy with ileo transverse hand-sewn anastomosis, drainage of multiple right upper quadrant and perigastric abscesses, repair gastric antral perforation, omentoplasty, performed on 01/23 Follow-up CBC, CMP, magnesium, phosphorus level, replete electrolytes accordingly Patient has passed gas, patient and p.o., denies abdomen pain, nausea vomiting Labs reviewed, patient afebrile, blood pressure stable Patient tolerated clear diet well 01/25 01/27 Advanced to solid food, regular diet, and also getting Ensure in live t.i.d..? Active drainage from surgical wound, denies abdomen pain. Management per surgeon Hypophosphatemia, hypocalcemia, hyponatremia Follow-up ionized calcium, Replace with calcium carbonate, 500 mg t.i.d. p.o. sodium chloride 1 g t.i.d. p.o. Replace with Neutra-Phos 1 pack Electrolytes abnormality is partially corrected (2) Emphysematous cholecystitis: Code(s): K81.0 - Acute cholecystitis Status: Ruled-out Assessment and Plan: * Please see above management under Hepatic Abcess (3) Hypokalemia: Code(s): E87.6 - Hypokalemia Status: Acute Assessment and Plan: * Patient's potassium levels have been persistently low * Replaced with potassium chloride * Monitor potassium level, replete accordingly * corrected (4) Anemia: Qualifiers: Anemia type: unspecified type Qualified Code(s): D64.9 - Anemia, unspecified Code(s): D64.9 - Anemia, unspecified Status: Acute Assessment and Plan: * H&H stable for now, continue to monitor * no obvious signs of bleed * iron supplementation if needed * Follow iron panel (5) Weight loss: Code(s): R63.4 - Abnormal weight loss Status: Chronic Assessment and Plan: * likely related to multiple factors, possible liver abscess, obstruction and lack of intake r/t pain * dietary consulted - will need supplementat
--- NOTE | 2023-01-27 10:03 | PM.IMPN ---
Progress Note: A&P Assessment and Plan (1) Hepatic abscess: Code(s): K75.0 - Abscess of liver Status: Acute Assessment and Plan: Abscess of liver, gallbladder perforation cT abd/pelvis (01/12) - Dilated gallbladder with gas involving the gallbladder wall as well as air-fluid level in the gallbladder, suspicious for an emphysematous cholecystitis. There is gas extending into the biliary tract with possible perforation along the inferior medial margin of the gallbladder, suspicious for perforation with abscess. There is free air along the liver margin inferiorly and anteriorly. US of abdomen (01/14) - 1: Complex heterogeneous appearance to the liver including masses of the left hepatic lobe measuring up to 3 cm. Cannot exclude metastatic disease. 2: Thickened gallbladder containing sludge and pericholecystic fluid. There is fluid adjacent to the gallbladder which may represent bowel, although abscess is not excluded. General Surgery following 01/20/2023: Repeat CT abdomen/pelvis ordered with IV and oral contrast by General surgery hepatic drains placed anterior and posteriorly. Fluid sent for culture. GI following - colonoscopy done, HIDA is negative Wound cultures positive for Heavy growth of Prevotella species and Streptococcus anginosus/constellatus Continue Metronidazole and Rocephin IV. Follow-up susceptibility Monitor WBC, which is trending down Blood cultures are -ve colonic polyps removed and sent to pathology - benign . The cecal polyp is large and is obstructing the appendiceal lumen continue PPI. Zofran PRN. continue pain management if abdominal pain returns. s/p Extended right hemicolectomy with ileo transverse hand-sewn anastomosis, drainage of multiple right upper quadrant and perigastric abscesses, repair gastric antral perforation, omentoplasty, performed on 01/23 Follow-up CBC, CMP, magnesium, phosphorus level, replete electrolytes accordingly Patient has passed gas, patient and p.o., denies abdomen pain, nausea vomiting Labs reviewed, patient afebrile, blood pressure stable Patient tolerated clear diet well 01/25 01/27 Advanced to solid food, regular diet, and also getting Ensure in live t.i.d..? Active drainage from surgical wound, denies abdomen pain. Management per surgeon Hypophosphatemia, hypocalcemia, hyponatremia Follow-up ionized calcium, Replace with calcium carbonate, 500 mg t.i.d. p.o. sodium chloride 1 g t.i.d. p.o. Replace with Neutra-Phos 1 pack Electrolytes abnormality is partially corrected (2) Emphysematous cholecystitis: Code(s): K81.0 - Acute cholecystitis Status: Ruled-out Assessment and Plan: Please see above management under Hepatic Abcess (3) Hypokalemia: Code(s): E87.6 - Hypokalemia Status: Acute Assessment and Plan: Patient's potassium levels have been persistently low Replaced with potassium chloride Monitor potassium level, replete accordingly corrected (4) Anemia: Qualifiers: Anemia type: unspecified type Qualified Code(s): D64.9 - Anemia, unspecified Code(s): D64.9 - Anemia, unspecified Status: Acute Assessment and Plan: H&H stable for now, continue to monitor no obvious signs of bleed iron supplementation if needed Follow iron panel (5) Weight loss: Code(s): R63.4 - Abnormal weight loss Status: Chronic Assessment and Plan: likely related to multiple factors, possible liver abscess, obstruction and lack of intake r/t pain dietary consulted - will need supplementation (6) Marijuana abuse, continuous: Code(s): F12.10 - Cannabis abuse, uncomplicated Status: Acute Subjective Date/time seen: 01/27/23 10:03 Interval history: I saw exam patient today. Patient has been having continuous drainage from surgical wound since yesterday evening, but patient denies abdomen pain, nausea vomiting. Patient is advanced to regular diet, s
--- NOTE | 2023-01-27 11:34 | PM.PNGS ---
Progress Note: A&P Assessment and Plan (1) Perforated gastric ulcer: Qualifiers: Gastric ulcer chronicity: unspecified ulcer chronicity Qualified Code(s): K25.5 - Chronic or unspecified gastric ulcer with perforation Code(s): K25.5 - Chronic or unspecified gastric ulcer with perforation Status: Acute Assessment and Plan: Oversewn at surgery and omentoplasty placed. 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 Will discuss with patient later today (4) Anemia: Qualifiers: Anemia type: unspecified type Qualified Code(s): D64.9 - Anemia, unspecified Code(s): D64.9 - Anemia, unspecified Status: Acute Assessment and Plan: Stable anemia, repeat CBC tomorrow (5) Protein-calorie malnutrition, severe: Code(s): E43 - Unspecified severe protein-calorie malnutrition Status: Chronic Assessment and Plan: Eating regular diet with Ensure Enlive t.i.d.. Subjective Subjective Date/Time Seen: 01/27/23 11:34 Post Op day: 5 Patient reports: feels better, pain is less, tolerating a regular diet, bowel movement, afebrile and other (Started leaking fluid yesterday from his BRIANNA drain site in the right flank. Has ostomy appliance over this with yellow serous output with yellow serous output with some) Exam Const: General: comfortable, no acute distress, alert, awake and underweight Nutritional Appearance: overweight Orientation/consciousness: patient oriented x3 GI: Inspection: non-distended, incision (All incisions dry and healing nicely), scaphoid, no visible herniation and other (Yellow serous fluid from BRIANNA site) GI Palp: Yes Soft to palpation, No Tenderness to palpation present (GI), No Hernia present, No Palpable mass present and No Ascites present Auscultation: normal bowel sounds Objective Data Vital Signs Vital Signs: Vital Signs - 24 hr 01/26/23 13:56 01/26/23 21:17 01/27/23 04:36 Temperature 36.3 C L 36.8 C 36.6 C Pulse Rate 105 H 81 78 Respiratory Rate 20 16 16 Blood Pressure 138/77 134/64 143/72 H Pulse Oximetry 100 97 97 Oxygen Delivery 01/27/23 09:00 Temperature Pulse Rate Respiratory Rate Blood Pressure Pulse Oximetry Oxygen Delivery Room Air Intake/Output Intake/Output: Intake & Output 01/24/23 01/25/23 01/26/23 01/27/23 23:59 23:59 23:59 23:59 Intake Total 3420 2558 970 118 Output Total 2535 530 400 Balance 885 2028 570 118 Meds/Results Medications: Active Medications Generic Name Dose Route Start Last Admin Trade Name Freq PRN Reason Stop Dose Admin Acetaminophen 500 mg 01/24/23 14:48 Acetaminophen 500 Mg Tablet PO Q6H PRN Mild Pain (1-3) or Fever Hydrocodone Bitart/Acetaminophen 1 tab 01/24/23 14:48 Hydrocodone/Acetaminophen (*Crx) 5-325 Mg Tablet PO Q4H PRN Pain Rated 4-6 Hydrocodone Bitart/Acetaminophen 1 tab 01/24/23 14:48 Hydrocodone/Acetaminophen (*Crx) 10-325 Mg Tablet PO Q6H PRN Pain Rated 7-10 Calcium Carbonate 500 mg 01/25/23 08:00 01/27/23 09:00 Calcium Carbonate (Oscal) 500 Mg Tablet PO 500 mg TIDWM KULDIP Administration Cefdinir 300 mg 01/26/23 09:00 01/27/23 09:00 Cefdinir 300 Mg Capsule PO 01/27/23 21:01 300 mg Q12HR KULDIP Administration Dextrose 12.5 gm 01/15/23 09:19 Dextrose 50% 25 Gm/50 Ml Syringe IV PUSH PRN PRN Hypoglycemia Protocol Diphenhydramine HCl 50 mg 01/17/23 10:32 Diphenhydramine Hcl Cap 25 Mg Capsule PO Q6H PRN Itching Enoxaparin Sodium 40 mg 01/24/23 09:00 01/27/23 09:00 Enoxaparin 40 Mg/0.4 Ml Syringe SUB-Q 40 mg DAILY KULDIP Administration Gluc
[2023-01-27 13:20] LABS: Ionized Calcium 4.9 mg/dL (4.7-5.5)
[2023-01-27 13:54] VITALS: BP 131/75; PULSE 79; RESP 16; TEMP 36.8; O2SAT 97
[2023-01-27 20:00] VITALS: O2SAT 97
[2023-01-27 21:28] VITALS: BP 141/72; PULSE 72; RESP 16; TEMP 36.3; O2SAT 97
[2023-01-28 05:31] VITALS: BP 147/62; PULSE 64; RESP 16; TEMP 36.6; O2SAT 98
[2023-01-28 06:06] LABS: Hematocrit 39.4 % (42.0-52.0); Hemoglobin 12.3 g/dL (14.0-18.0); Mean Corpuscular HGB Conc 31.2 g/dl (32-36); Mean Corpuscular Hemoglobin 28.7 pg (26-34); Mean Corpuscular Volume 91.8 fl (80-100); Mean Platelet Volume 9.3 fl (7.4-10.4); Platelet Count Result 351 k/mm3 (150-375); Red Blood Count 4.29 M/mm3 (4.6-6.20); Red Cell Distribution Width 15.7 % (11.5-14.5); White Blood Count 9.4 K/mm3 (4.5-10.0)
[2023-01-28 06:18] LABS: Alanine Aminotransferase 15 U/L (6-50); Albumin Level 2.5 g/dL (3.5-5.1); Alkaline Phosphatase 61 U/L (38-126); Anion Gap 3 mmol/L (8-16); Aspartate Amino Transferase 26 U/L (17-59); Bilirubin,Total 0.4 mg/dL (0.2-1.3); Blood Urea Nitrogen 9 mg/dL (9-20); Calcium 7.8 mg/dL (8.4-10.2); Carbon Dioxide 30 mmol/L (22-30); Chloride 99 mmol/L (98-107); Estimated CRCL calculation 101 ml/min; Estimated Glomerular Filt Rate > 60; Glucose 97 mg/dL (65-110); Potassium 3.7 mmol/L (3.4-5.0); Sodium 132 mmol/L (137-145)
--- NOTE | 2023-01-28 08:56 | P.PNIM_ITS ---
Progress Note: A&P Assessment and Plan (1) Hepatic abscess: Code(s): K75.0 - Abscess of liver Status: Acute Assessment and Plan: * Abscess of liver, gallbladder perforation cT abd/pelvis (01/12) - Dilated gallbladder with gas involving the gallbladder wall as well as air-fluid level in the gallbladder, suspicious for an emphysematous cholecystitis. There is gas extending into the biliary tract with possible perforation along the inferior medial margin of the gallbladder, suspicious for perforation with abscess. There is free air along the liver margin inferiorly and anteriorly. * US of abdomen (01/14) - 1: Complex heterogeneous appearance to the liver including masses of the left hepatic lobe measuring up to 3 cm. Cannot exclude metastatic disease. 2: Thickened gallbladder containing sludge and aaliyah cholecystic fluid. There is fluid adjacent to the gallbladder which may represent bowel, although abscess is not excluded. * General Surgery following * 01/20/2023: Repeat CT abdomen/pelvis ordered with IV and oral contrast by General surgery * hepatic drains placed anterior and posteriorly. Fluid sent for culture. * GI following - colonoscopy done, HIDA is negative * Wound cultures positive for Heavy growth of Prevotella species and Streptococcus anginosus/constellatus, predict resistant to penicillin * Received on completed antibiotics treatment of metronidazole and Rocephin IV, cefdinir on January 26 Patient is afebrile, white blood cell within normal limit * Blood cultures are -ve colonic polyps removed and sent to pathology - benign * . The cecal polyp is large and is obstructing the appendiceal lumen * continue Protonix 40 mg daily p.o. Zofran PRN. s/p Extended right hemicolectomy with ileo transverse hand-sewn anastomosis, drainage of multiple right upper quadrant and perigastric abscesses, repair gastric antral perforation, omentoplasty, performed on 01/23 01/27 Advanced to solid food, regular diet, and also getting Ensure in live t.i.d..? Active drainage from surgical wound, denies abdomen pain. Management per surgeon 01/29, patient tolerated regular diet well, denies nausea vomiting, afebrile, blood pressure stable, white blood cell within normal limit, hemoglobin normal and stable. Still has active draining from the surgical wound on the right side of abdomen. No tenderness, abdomen is soft Hypophosphatemia, hypocalcemia, hyponatremia Follow-up ionized calcium, Replace with calcium carbonate, 500 mg t.i.d. p.o. sodium chloride 2 g bid p.o. Replace with Neutra-Phos 1 pack Electrolytes abnormality is partially corrected (2) Emphysematous cholecystitis: Code(s): K81.0 - Acute cholecystitis Status: Ruled-out Assessment and Plan: * Please see above management under Hepatic Abcess (3) Hypokalemia: Code(s): E87.6 - Hypokalemia Status: Acute Assessment and Plan: * Patient's potassium levels have been persistently low * Replaced with potassium chloride * Monitor potassium level, replete accordingly * corrected (4) Anemia: Qualifiers: Anemia type: unspecified type Qualified Code(s): D64.9 - Anemia, unspecified Code(s): D64.9 - Anemia, unspecified Status: Acute Assessment and Plan: * H&H stable for now, continue to monitor * no obvious signs of bleed * iron supplementation if needed * Follow iron panel (5) Weight loss: Code(s): R63.4 - Abnormal weight loss Status: Chronic Assessment and Plan: * likely related to multiple factors, possible liver abscess, obstruction and lack of in
--- NOTE | 2023-01-28 08:56 | PM.IMPN ---
Progress Note: A&P Assessment and Plan (1) Hepatic abscess: Code(s): K75.0 - Abscess of liver Status: Acute Assessment and Plan: Abscess of liver, gallbladder perforation cT abd/pelvis (01/12) - Dilated gallbladder with gas involving the gallbladder wall as well as air-fluid level in the gallbladder, suspicious for an emphysematous cholecystitis. There is gas extending into the biliary tract with possible perforation along the inferior medial margin of the gallbladder, suspicious for perforation with abscess. There is free air along the liver margin inferiorly and anteriorly. US of abdomen (01/14) - 1: Complex heterogeneous appearance to the liver including masses of the left hepatic lobe measuring up to 3 cm. Cannot exclude metastatic disease. 2: Thickened gallbladder containing sludge and pericholecystic fluid. There is fluid adjacent to the gallbladder which may represent bowel, although abscess is not excluded. General Surgery following 01/20/2023: Repeat CT abdomen/pelvis ordered with IV and oral contrast by General surgery hepatic drains placed anterior and posteriorly. Fluid sent for culture. GI following - colonoscopy done, HIDA is negative Wound cultures positive for Heavy growth of Prevotella species and Streptococcus anginosus/constellatus, predict resistant to penicillin Received on completed antibiotics treatment of metronidazole and Rocephin IV, cefdinir on January 26 Patient is afebrile, white blood cell within normal limit Blood cultures are -ve colonic polyps removed and sent to pathology - benign . The cecal polyp is large and is obstructing the appendiceal lumen continue Protonix 40 mg daily p.o. Zofran PRN. s/p Extended right hemicolectomy with ileo transverse hand-sewn anastomosis, drainage of multiple right upper quadrant and perigastric abscesses, repair gastric antral perforation, omentoplasty, performed on 01/23 01/27 Advanced to solid food, regular diet, and also getting Ensure in live t.i.d..? Active drainage from surgical wound, denies abdomen pain. Management per surgeon 01/29, patient tolerated regular diet well, denies nausea vomiting, afebrile, blood pressure stable, white blood cell within normal limit, hemoglobin normal and stable. Still has active draining from the surgical wound on the right side of abdomen. No tenderness, abdomen is soft Hypophosphatemia, hypocalcemia, hyponatremia Follow-up ionized calcium, Replace with calcium carbonate, 500 mg t.i.d. p.o. sodium chloride 2 g bid p.o. Replace with Neutra-Phos 1 pack Electrolytes abnormality is partially corrected (2) Emphysematous cholecystitis: Code(s): K81.0 - Acute cholecystitis Status: Ruled-out Assessment and Plan: Please see above management under Hepatic Abcess (3) Hypokalemia: Code(s): E87.6 - Hypokalemia Status: Acute Assessment and Plan: Patient's potassium levels have been persistently low Replaced with potassium chloride Monitor potassium level, replete accordingly corrected (4) Anemia: Qualifiers: Anemia type: unspecified type Qualified Code(s): D64.9 - Anemia, unspecified Code(s): D64.9 - Anemia, unspecified Status: Acute Assessment and Plan: H&H stable for now, continue to monitor no obvious signs of bleed iron supplementation if needed Follow iron panel (5) Weight loss: Code(s): R63.4 - Abnormal weight loss Status: Chronic Assessment and Plan: likely related to multiple factors, possible liver abscess, obstruction and lack of intake r/t pain dietary consulted - will need supplementation (6) Marijuana abuse, continuous: Code(s): F12.10 - Cannabis abuse, uncomplicated Status: Acute Subjective Date/time seen: 01/28/23 08:56 Interval history: I saw exam patient today. Patient tolerated regular diet well, denies abdomen pain, nausea vomiting. Patient is afebrile, bl
[2023-01-28] MEDS: PANTOPRAZOLE 40 MG TABLET PO (09:23)
[2023-01-28] MEDS: SODIUM CHLORIDE 1 GM TABLET 2 GM PO ×2 (09:23→16:31)
[2023-01-28] MEDS: ENOXAPARIN 40 MG/0.4 ML SYRINGE SUB-Q (09:23)
[2023-01-28] MEDS: CALCIUM CARBONATE (OSCAL) 500 MG TABLET PO ×3 (09:23→16:31)
--- NOTE | 2023-01-28 12:33 | PCCCNOTE ---
On 01/28/23, the student, [Karine Wheat], provided care and completed [facility] documentation on this patient. I have reviewed the student's documentation and agree with the findings.
--- NOTE | 2023-01-28 12:55 | PCNFU ---
Nutrition Follow-Up Complete: Severe malnutrition related to chronic cancer as evidenced by weight loss 13%/6 months; NFPE findings of severe fat loss and moderate muscle loss. Goal:Adequate PO intake when diet is advanced Pt is meeting goal. Continue with same goal. Pt current nutrition is Regular, Ensure Enlive TID with meals. Nutrition recommendation: continue with current plan of care Last recorded weight is 57.1 kg. Bowel Motility: +BM 01/28 Labs Reviewed:Hgb:12.3, HCT:39.4, Alb:2.5, NA:132, Cr:0.5 Meds Noted: zofran, protonix, lovenox Skin: no pressure injuries Additional Notes: Pt on a regular diet, intake good at 75-100% most meals, tolerating well. Pt also likes the Ensure Enlive chocolate or strawberry flavors. Continue to encourage good po intake of meals and supplements. Monitoring intakes, weights, labs, plan of care Follow up in 7 days
[2023-01-28 14:00] VITALS: BP 125/66; PULSE 88; RESP 20; TEMP 37; O2SAT 98
--- NOTE | 2023-01-28 16:22 | PM.PNGS ---
Progress Note: A&P Assessment and Plan (1) Perforated gastric ulcer: Qualifiers: Gastric ulcer chronicity: unspecified ulcer chronicity Qualified Code(s): K25.5 - Chronic or unspecified gastric ulcer with perforation Code(s): K25.5 - Chronic or unspecified gastric ulcer with perforation Status: Acute Assessment and Plan: Oversewn at surgery and omentoplasty placed. Continue Protonix (2) Adenocarcinoma of cecum: Code(s): C18.0 - Malignant neoplasm of cecum Status: Acute Assessment and Plan: S/p extended right hemicolectomy on 01/22. Stage IIA. BRIANNA drain site with a significant amount of serous drainage requiring an ostomy appliance to collect the drainage. After discussing with Dr. Bui, I placed two Nylon sutures for closure of the BRIANNA drain site and applied a gauze dressing. Will monitor this area overnight and if the drainage is controlled and he is doing well tomorrow, he could potentially be discharged. (3) Hepatic abscess: Code(s): K75.0 - Abscess of liver Status: Acute Assessment and Plan: Drained during surgery (4) Anemia: Qualifiers: Anemia type: unspecified type Qualified Code(s): D64.9 - Anemia, unspecified Code(s): D64.9 - Anemia, unspecified Status: Acute Assessment and Plan: Stable (5) Protein-calorie malnutrition, severe: Code(s): E43 - Unspecified severe protein-calorie malnutrition Status: Chronic Assessment and Plan: Eating regular diet with Ensure Enlive t.i.d.. Plan I have discussed the patient's case and plan of care with Dr. Bui. Subjective Subjective Date/Time Seen: 01/28/23 16:22 Post Op day: 6 (Extended right hemicolectomy with ileo transverse hand-sewn anastomosis, drainage of multiple right upper quadrant and perigastric abscesses, repair gastric antral perforation, omentoplasty) Patient reports: no new complaints, tolerating a regular diet, flatus, bowel movement and afebrile Interval history: Chart reviewed since last seen. Patient seen today and doing well. Tolerating solids and supplements. He denies nausea, vomiting, or bloating. Has some incisional soreness that is well controlled. He is ambulating without difficulty. He had a BM today. He has had a lot of serous drainage from his RLQ BRIANNA drain site after removal. Nursing currently has an ostomy appliance over the drain site with serous drainage in the bag. Discussed with Dr. Bui who requested I come to the bedside and put in sutures for simple closure of this site. I discussed this with the patient who feels he could not do simple wound care at home for this area and would prefer to try simple closure for the excessive drainage. Exam Const: General: comfortable and no acute distress Nutritional Appearance: thin and underweight Orientation/consciousness: patient oriented x3 GI: Inspection: incision (incisions dry and healing well with no erythema) and scaphoid GI Palp: Yes Soft to palpation, No Tenderness to palpation present (GI), No Guarding due to palpation present (GI) and No Hernia present Auscultation: normal bowel sounds Other: RLQ BRIANNA drain site with ostomy appliance over the incision and serous fluid draining into the bag. Ostomy appliance removed with serous fluid slowly draining from the open incision. No erythema around the drain site. Site was prepped with iodine and draped in sterile fashion. I infiltrated lidocaine 1% around the drain site for local anesthetic. I then placed two simple interrupted sutures with 4-0 Nylon at the drain site to approximate the edges and close the opening. After this, the area was dry and no longer draining. Sterile gauze dressing applied and covered with Medipore tape. Objective Data Vital Signs Vital Signs: Vital Signs - 24 hr 01/27/23 21:28 01/27/23 20:00 01/28/23 05:31 Temperature 97.4 F L 97.8 F Pulse Rate 72 64 Respiratory Rate 16 16 Blood Pressure 141/72 H 14
[2023-01-28 20:00] VITALS: O2SAT 98
[2023-01-28] MEDS: IBUPROFEN IV 800 MG/200 ML 800 MG/200 ML BAG 400 MG IVPB (21:42)
[2023-01-28 22:00] VITALS: BP 141/67; PULSE 80; RESP 14; TEMP 37.2; O2SAT 98
[2023-01-29 06:00] VITALS: BP 128/71; PULSE 78; RESP 18; TEMP 36.8; O2SAT 98
--- NOTE | 2023-01-29 08:18 | PM.PNGS ---
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 Doing well. Okay to discharge today. Does not need any pain medication. (2) Perforated gastric ulcer: Qualifiers: Gastric ulcer chronicity: unspecified ulcer chronicity Qualified Code(s): K25.5 - Chronic or unspecified gastric ulcer with perforation Code(s): K25.5 - Chronic or unspecified gastric ulcer with perforation Status: Acute Assessment and Plan: Oversewn at surgery. Will go home on Protonix. See me in 1 week. (3) Hepatic abscess: Code(s): K75.0 - Abscess of liver Status: Acute Assessment and Plan: Resolved, drained and broken up at surgery. (4) Protein-calorie malnutrition, severe: Code(s): E43 - Unspecified severe protein-calorie malnutrition Status: Chronic Assessment and Plan: Much improved. Patient will go home on regular diet with Ensure in live t.i.d.. Subjective Subjective Date/Time Seen: 01/29/23 08:18 Post Op day: #7 Patient reports: feels better, tolerating a regular diet, bowel movement and afebrile Exam GI: Inspection: non-distended, incision (Healing well) and scaphoid GI Palp: Yes Soft to palpation and Yes Tenderness to palpation present (GI) (Incisional, appropriate) Auscultation: normal bowel sounds Objective Data Vital Signs Vital Signs: Vital Signs - 24 hr 01/28/23 09:23 01/28/23 14:00 01/28/23 22:00 Temperature 37.0 C 37.2 C Pulse Rate 88 80 Respiratory Rate 20 14 Blood Pressure 125/66 141/67 H Pulse Oximetry 98 98 Oxygen Delivery Room Air 01/28/23 20:00 01/29/23 06:00 Temperature 36.8 C Pulse Rate 78 Respiratory Rate 18 Blood Pressure 128/71 Pulse Oximetry 98 98 Oxygen Delivery Room Air Intake/Output Intake/Output: Intake & Output 01/26/23 01/27/23 01/28/23 01/29/23 23:59 23:59 23:59 23:59 Intake Total 541 535 5862 500 Output Total 957 276 3895 600 Balance 570 3 -165 -100 Meds/Results Medications: Active Medications Generic Name Dose Route Start Last Admin Trade Name Freq PRN Reason Stop Dose Admin Acetaminophen 500 mg 01/24/23 14:48 Acetaminophen 500 Mg Tablet PO Q6H PRN Mild Pain (1-3) or Fever Hydrocodone Bitart/Acetaminophen 1 tab 01/24/23 14:48 Hydrocodone/Acetaminophen (*Crx) 5-325 Mg Tablet PO Q4H PRN Pain Rated 4-6 Hydrocodone Bitart/Acetaminophen 1 tab 01/24/23 14:48 Hydrocodone/Acetaminophen (*Crx) 10-325 Mg Tablet PO Q6H PRN Pain Rated 7-10 Calcium Carbonate 500 mg 01/25/23 08:00 01/28/23 16:31 Calcium Carbonate (Oscal) 500 Mg Tablet PO 500 mg TIDWM KULDIP Administration Dextrose 12.5 gm 01/15/23 09:19 Dextrose 50% 25 Gm/50 Ml Syringe IV PUSH PRN PRN Hypoglycemia Protocol Diphenhydramine HCl 50 mg 01/17/23 10:32 Diphenhydramine Hcl Cap 25 Mg Capsule PO Q6H PRN Itching Enoxaparin Sodium 40 mg 01/24/23 09:00 01/28/23 09:23 Enoxaparin 40 Mg/0.4 Ml Syringe SUB-Q 40 mg DAILY KULDIP Administration Glucagon 1 mg 01/15/23 09:19 Glucagon For Inj 1 Mg Vial IM PRN PRN Hypoglycemia Protocol Dextrose 1,000 mls @ 100 mls/hr 01/15/23 09:19 Dextrose 5% 1,000 Ml IVPB PRN PRN Hypoglycemia Protocol Ibuprofen 800 mg in 200 mls @ 400 mls/hr 01/22/23 18:27 01/28/23 21:42 Caldolor 800 Mg/200 Ml IVPB 400 mls/hr Q6H PRN Administration Pain Rated 1-3 Loperamide HCl 2 mg 01/24/23 14:50 01/25/23 06:33 Loperamide Hcl 2 Mg Capsule PO 2 mg PRN PRN Administration Diarrhea Morphine Sulfate 2 mg 01/22/23 18:27 Morphine Sulfate (*Crx) 2 Mg/Ml Inj IV PUSH Q2H PRN Pain Rated 4-6 Morphine Sulfate 4 mg 01/22/23 18:27 01/23/23 06:16 Morphine Sulfate (*Crx) 4 Mg/Ml Inj IV PUSH 4 mg
[2023-01-29] MEDS: SODIUM CHLORIDE 1 GM TABLET 2 GM PO (08:28)
[2023-01-29] MEDS: ENOXAPARIN 40 MG/0.4 ML SYRINGE SUB-Q (08:28)
[2023-01-29] MEDS: PANTOPRAZOLE 40 MG TABLET PO (08:28)
[2023-01-29] MEDS: CALCIUM CARBONATE (OSCAL) 500 MG TABLET PO ×2 (08:28→12:46)
[2023-01-29] MEDS: IBUPROFEN IV 800 MG/200 ML 800 MG/200 ML BAG 400 MG IVPB (08:39)
--- NOTE | 2023-01-29 08:50 | PM.IMPN ---
Progress Note: A&P Assessment and Plan (1) Hepatic abscess: Code(s): K75.0 - Abscess of liver Status: Acute Assessment and Plan: Abscess of liver, gallbladder perforation cT abd/pelvis (01/12) - Dilated gallbladder with gas involving the gallbladder wall as well as air-fluid level in the gallbladder, suspicious for an emphysematous cholecystitis. There is gas extending into the biliary tract with possible perforation along the inferior medial margin of the gallbladder, suspicious for perforation with abscess. There is free air along the liver margin inferiorly and anteriorly. US of abdomen (01/14) - 1: Complex heterogeneous appearance to the liver including masses of the left hepatic lobe measuring up to 3 cm. Cannot exclude metastatic disease. 2: Thickened gallbladder containing sludge and pericholecystic fluid. There is fluid adjacent to the gallbladder which may represent bowel, although abscess is not excluded. General Surgery following 01/20/2023: Repeat CT abdomen/pelvis ordered with IV and oral contrast by General surgery hepatic drains placed anterior and posteriorly. Fluid sent for culture. GI following - colonoscopy done, HIDA is negative Wound cultures positive for Heavy growth of Prevotella species and Streptococcus anginosus/constellatus, predict resistant to penicillin Received on completed antibiotics treatment of metronidazole and Rocephin IV, cefdinir on January 26 Patient is afebrile, white blood cell within normal limit Blood cultures are -ve colonic polyps removed and sent to pathology - benign . The cecal polyp is large and is obstructing the appendiceal lumen continue Protonix 40 mg daily p.o. Zofran PRN. s/p Extended right hemicolectomy with ileo transverse hand-sewn anastomosis, drainage of multiple right upper quadrant and perigastric abscesses, repair gastric antral perforation, omentoplasty, performed on 01/23 01/27 Advanced to solid food, regular diet, and also getting Ensure in live t.i.d..? Active drainage from surgical wound, denies abdomen pain. Management per surgeon 01/29, patient tolerated regular diet well, denies nausea vomiting, afebrile, blood pressure stable, white blood cell within normal limit, hemoglobin normal and stable. Still has active draining from the surgical wound on the right side of abdomen. No tenderness, abdomen is soft Hypophosphatemia, hypocalcemia, hyponatremia Follow-up ionized calcium, Replace with calcium carbonate, 500 mg t.i.d. p.o. sodium chloride 2 g bid p.o. Replace with Neutra-Phos 1 pack Electrolytes abnormality is partially corrected Sodium 134, calcium 7.5, ionized calcium level within normal limits 4.9 phosphorus 3.0 (2) Emphysematous cholecystitis: Code(s): K81.0 - Acute cholecystitis Status: Ruled-out Assessment and Plan: Please see above management under Hepatic Abcess (3) Hypokalemia: Code(s): E87.6 - Hypokalemia Status: Acute Assessment and Plan: Patient's potassium levels have been persistently low Replaced with potassium chloride Monitor potassium level, replete accordingly corrected (4) Anemia: Qualifiers: Anemia type: unspecified type Qualified Code(s): D64.9 - Anemia, unspecified Code(s): D64.9 - Anemia, unspecified Status: Acute Assessment and Plan: H&H stable for now, continue to monitor no obvious signs of bleed iron supplementation if needed Follow iron panel (5) Weight loss: Code(s): R63.4 - Abnormal weight loss Status: Chronic Assessment and Plan: likely related to multiple factors, possible liver abscess, obstruction and lack of intake r/t pain dietary consulted - ensure is added as supplementation (6) Marijuana abuse, continuous: Code(s): F12.10 - Cannabis abuse, uncomplicated Status: Acute Subjective Date/time seen: 01/29/23 08:50 Interval history: I saw exam patient today.
--- NOTE | 2023-01-29 08:51 | PM.DS ---
DS: Admitting Diagnosis Discharge Date 01/29/23 Admitting Diagnosis (1) Hepatic abscess: ?Code(s): K75.0 - Abscess of liver ?Status:?Acute ?Assessment and Plan: DS: Discharge Diagnosis Discharge Diagnosis (1) Hepatic abscess: Code(s): K75.0 - Abscess of liver Status: Acute Assessment and Plan: (2) Emphysematous cholecystitis: Code(s): K81.0 - Acute cholecystitis Status: Ruled-out Assessment and Plan: Please see above management under Hepatic Abcess (3) Hypokalemia: Code(s): E87.6 - Hypokalemia Status: Acute Assessment and Plan: Patient's potassium levels have been persistently low Replaced with potassium chloride Monitor potassium level, replete accordingly corrected (4) Anemia: Qualifiers: Anemia type: unspecified type Qualified Code(s): D64.9 - Anemia, unspecified Code(s): D64.9 - Anemia, unspecified Status: Acute Assessment and Plan: H&H stable for now, continue to monitor no obvious signs of bleed iron supplementation if needed Follow iron panel low s/w ferrous sulfate p.o. 325 mg b.i.d. p.o. (5) Weight loss: Code(s): R63.4 - Abnormal weight loss Status: Chronic Assessment and Plan: likely related to multiple factors, possible liver abscess, obstruction and lack of intake r/t pain dietary consulted - ensure is added as supplementation (6) Marijuana abuse, continuous: Code(s): F12.10 - Cannabis abuse, uncomplicated Status: Acute DS: Summary Hospital Course Hospital Course: Per H&P, 62 y/o M presents here with upper abdominal pain, N/V/D, and weight loss with PMH of arthritis and former tobacco use (heavy use for 18 years).Patient reports that he began experiencing intermittent lower abdominal pain daily approximately 1 year ago (Feb 2022).? Patient does not typically follow with a PCP, however he recently became established with MD Jennifer.?in order to have this assessed.? He was then prescribed docusate with some resolution of lower abdominal pain as well as an iron supplement for anemia.? However late December, around , he experienced abrupt onset of upper abdominal pain post-prandial.? Pain was persistent and accompanied by a reduction in appetite, diarrhea, nausea, and vomiting. Patient reports the abdominal pain occasionally worsened with p.o. intake and occasionally provided relief with p.o. intake. States he has been unable to keep majority of food down but has had some success with liquid diet. +weight loss in last 2 weeks, went from 129 lbs to 110 lbs. concern weight loss may have been present before the last 2 weeks. states he previously weighed 145 lbs, unclear when weight began to decrease. Since upper abdominal pain has started he has also began experiencing severe heartburn that has been aggravated most PO intake, including PO intake. trialed OTC antacid but was unable to tolerate. He describes his stools as liquid and yellow with partially digested food, having on average 3-4 bowel movements per day for the past 2 weeks. patient reports that his abdomen has felt firm but not distended/bloated. he reported some of these findings to his PCP on 01/12, initially refused to come to ED and elected to do workup outpatient. CT of abdomen (01/13) was performed and was concerning for emphysematous cholecystitis with possible perforation with abscess. Patient was then referred to the ED same day (01/13). Initial work up showed elevated WBC of 18.6, hypokalemia at 2.9, and stable kidney function. Radiology recommended additional CT with IV and oral contrast, unable to be obtained because patient ultimately elected to leave AMA due to home and dogs needing care. Stated he would make arrangements and return. Prior to AMA, patient was given dose of PO K, Cipro and Flagyl IVPB. Patient now returns today with significant reduction in RUQ/upper abdominal pain.
[2023-01-29 09:20] LABS: Anion Gap 4 mmol/L (8-16); Blood Urea Nitrogen 11 mg/dL (9-20); Calcium 7.5 mg/dL (8.4-10.2); Carbon Dioxide 29 mmol/L (22-30); Chloride 101 mmol/L (98-107); Estimated CRCL calculation 83 ml/min; Estimated Glomerular Filt Rate > 60; Glucose 125 mg/dL (65-110); Potassium 3.4 mmol/L (3.4-5.0); Sodium 134 mmol/L (137-145)
[2023-01-29 14:00] VITALS: BP 127/66; PULSE 103; RESP 20; TEMP 37.4; O2SAT 99
--- NOTE | 2023-01-29 15:26 | PC.NURSE ---
Pt discharging home with self care. Pt IV removed and pt tolerated well. Pt reports pain in back due to stiffness. Pt expresses no other needs at this time. Pt minesh removed per provider order and steri-strips placed. Pt tolerated well. Pt has been monitored for any changes in status while here. Pt wheeled down to friends car on discharge.
== END 2023-01-29 15:10 | disposition home or self-care (01) | DRG 326 ==
LOC: ANHED 10:22 → ANH3MEDSUR 13:59
PROVIDERS: Family Medicine; Internal Medicine Gastroenterology; Nurse Practitioner; Radiology Diagnostic Radiology; Student in an Organized Health Care Education/Training Program; Surgery; Admitting Provider Internal Medicine; Emergency Provider Emergency Medicine; PCP Family Medicine; Visit Provider Hospitalist
PROC: 0W9G30Z Drainage of Peritoneal Cavity with Drainage Device, Percutaneous Approach (ICD-10-PCS; CPT 75989; principal; 2023-01-15 15:00)
PROC: 0DJD8ZZ Inspection of Lower Intestinal Tract, Via Natural or Artificial Opening Endoscopic (ICD-10-PCS; CPT 45378; principal; 2023-01-18 14:30)
PROC: 0DU707Z Supplement Stomach, Pylorus with Autologous Tissue Substitute, Open Approach (ICD-10-PCS; CPT 44160; principal; 2023-01-22 14:00)
DX: C18.0 Malignant neoplasm of cecum (principal); E43 Unspecified severe protein-calorie malnutrition; K25.5 Chronic or unspecified gastric ulcer with perforation; K75.0 Abscess of liver; K65.1 Peritoneal abscess; K81.0 Acute cholecystitis; Z68.1 Body mass index [BMI] 19.9 or less, adult; E87.1 Hypo-osmolality and hyponatremia; K91.61 Intraoperative hemorrhage and hematoma of a digestive system organ or structure complicating a digestive system procedure; F12.90 Cannabis use, unspecified, uncomplicated; D12.2 Benign neoplasm of ascending colon; D12.0 Benign neoplasm of cecum; D12.3 Benign neoplasm of transverse colon; D12.5 Benign neoplasm of sigmoid colon; D12.8 Benign neoplasm of rectum; E83.39 Other disorders of phosphorus metabolism; E83.51 Hypocalcemia; E87.6 Hypokalemia; B95.4 Other streptococcus as the cause of diseases classified elsewhere; B96.89 Other specified bacterial agents as the cause of diseases classified elsewhere; Z87.891 Personal history of nicotine dependence; Z80.0 Family history of malignant neoplasm of digestive organs
CPT/HCPCS: 36415; 36430; 71250; 74176; 74177; 74178; 75989; 76705; 78226; 80048; 80053; 81001; 82330; 82378; 82948; 83540; 83550; 83605; 83690; 83735; 84100; 84132; 84443; 85025; 85027; 85610; 85652; 85730; 86140; 86850; 86900; 86901; 86920; 87040; 87070; 87075; 87076; 87077; 87185; 87205; 88305; 88309; 88342; 96365; 96366; 96367; 99283; 99285; A9270; A9537; C1729; C9113; G0378; J0690; J0696; J1100; J1170; J1650; J1741; J1836; J1956; J2250; J2270; J2405; J2704; J3010; J3480; J7030; J7040; J7120; P9016; Q9967

== ENCOUNTER 2023-02-18 10:28 | Inpatient (IN) | payer MEDICARE, SELFPAY ==
[2023-02-18] VITALS (20 sets, daily range): BP systolic 130–162; BP diastolic 69–95; PULSE 90–102; RESP 18–32; TEMP 36.3–36.8; O2SAT 91–100; BMI 16.4
--- NOTE | ~2023-02-18 | XR_ITS ---
XR chest 2V DATE: 02/18/2023 11:49 INDICATION: Chest pain, shortness of breath TECHNIQUE: AP and lateral views COMPARISON: 01/13/2023 CT chest abdomen pelvis 07/04/2022 2 view chest FINDINGS: Bilateral hyperinflation consistent with COPD. No pulmonary infiltrate or consolidation, pl eural effusion or pulmonary vascular congestion or pneumothorax is detected. Borderline heart size. Aortic calcification. No hilar or mediastinal enlargement is evident. IMPRESSION: Bilateral hyperinflation consistent with COPD Borderline heart size Aortic atherosclerosis No active pulmonary disease is evident Reviewed, dictated and finalized at location [facility]
--- NOTE | ~2023-02-18 | CT_ITS ---
EXAMINATION: CTA chest PE abdomen pel DATE: 02/18/2023 13:09 INDICATION: Chest pain. Back pain. Shortness of breath. TECHNIQUE: Computed tomography angiography (CTA) of the chest was performed with 100 mL Omnipaque-350 intravenous contrast timed to evaluate the pulmonary arteries. Coronal maximum intensity projection 3D-reconstructions were created by the technologist. Computed tomography (CT) of the abdomen and pelv is was performed with intravenous contrast. Automated exposure control and iterative reconstruction t echnique were employed. The dose-length product was 405.94 mGy-cm. COMPARISON: CT abdomen and pelvis 01/20/2023 FINDINGS: CTA chest: There is mild scarring at the lung apices. There is mild emphysema. There is mild dependen t atelectasis bilaterally. There are mild groundglass opacities in the lungs bilaterally. There is a trace right pleural effusion. The heart size is normal. No pericardial effusion. There are acute pulm onary emboli in the lower lobes. CT abdomen and pelvis: The liver and gallbladder are normal. Calcifications in the spleen are consist ent with old granulomatous disease. The pancreas and adrenal glands are normal. There are cysts in th e kidneys measuring up to 9 mm on the left. There is a left inguinal hernia containing fat. There are changes of right hemicolectomy. There are no pathologically enlarged lymph nodes. There is no free i ntraperitoneal fluid. There is a benign bone island in left femoral head. There is mild lumbar spondy losis. IMPRESSION: 1. Acute pulmonary emboli in the lower lobes. I called this result to Dr. Nichole. 2. Mild groundglass opacities in the lungs, likely mild pulmonary edema. 3. Mild emphysema. Reviewed, dictated and finalized at location A. ED IMPRESSION: 1. Acute pulmonary emboli in the lower lobes. I called this result to Dr. Rasheed jiang. 2. Mild groundglass opacities in the lungs, likely mild pulmonary edema. 3. Mild emphysema.
--- NOTE | 2023-02-18 10:30 | ECG_ITS ---
Measurements Intervals [place] Rate: 103 P: 72 [place]: 165 QRS: -24 QRSD: 81 T: 65 QT: 344 QTc: 451 Interpretive Statements SINUS TACHYCARDIA ATRIAL PREMATURE COMPLEX VOLTAGE CRITERIA FOR LVH BASELINE ARTIFACT- I, II, III, AVR, AVL, V1-V6 BORDERLINE ECG NO PREVIOUS ECG AVAILABLE FOR COMPARISON Electronically Signed On 02-18-2023 11:37:29 SPINDLE MAKER by Boni Jeff D.O.
[2023-02-18 10:56] LABS: Basophils Percent Auto 0.3 % (0.2-1.2); Eosinophils Absolute Auto 0.1 K/mm3 (0-0.3); Hematocrit 41.6 % (42.0-52.0); Hemoglobin 12.7 g/dL (14.0-18.0); Immature Granulocyte Absolute 0.05 K/mm3 (0.00-0.031); Immature Granulocyte Percent A 0.5 % (0-0.5); Lymphocytes Absolute Auto 1.34 K/mm3 (0.9-3.2); Lymphocytes Percent Auto 12.2 % (18.3-44.2); Mean Corpuscular HGB Conc 30.5 g/dl (32-36); Mean Corpuscular Hemoglobin 29.3 pg (26-34); Mean Corpuscular Volume 96.1 fl (80-100); Monocytes Absolute Auto 0.9 K/mm3 (0.1-0.6); Monocytes Percent Auto 7.8 % (2.6-8.5); Neutrophils Absolute Auto 8.6 K/mm3 (1.3-6.7); Neutrophils Percent Auto 78.2 % (45.5-73.1); Platelet Count Result 282 k/mm3 (150-375); Red Blood Count 4.33 M/mm3 (4.6-6.20); Red Cell Distribution Width 17.3 % (11.5-14.5)
[2023-02-18 11:06] LABS: Alanine Aminotransferase 21 U/L (6-50); Alkaline Phosphatase 92 U/L (38-126); Anion Gap 8 mmol/L (8-16); Aspartate Amino Transferase 24 U/L (17-59); Bilirubin,Total 0.4 mg/dL (0.2-1.3); Blood Urea Nitrogen 18 mg/dL (9-20); Calcium 9.4 mg/dL (8.4-10.2); Carbon Dioxide 31 mmol/L (22-30); Chloride 100 mmol/L (98-107); Estimated CRCL calculation 68 ml/min; Estimated Glomerular Filt Rate > 60; Glucose 141 mg/dL (65-110); Lipase 102 U/L (23-300); Potassium 3.9 mmol/L (3.4-5.0); Sodium 139 mmol/L (137-145)
[2023-02-18 11:10] LABS: INR 0.9; Partial Thromboplastin Time 26.2 SECONDS (22.3-36.8); Prothrombin Time 12.7 Seconds (11.1-14.7)
[2023-02-18 11:18] LABS: Troponin I < 0.012 ng/mL (0.000-0.034)
--- NOTE | 2023-02-18 12:04 | ED.GENADULT ---
HPI - General Adult General Chief complaint: Chest Pain Stated complaint: CHEST PAIN Time Seen by Provider: 02/18/23 11:59 History of Present Illness HPI narrative: Patient is a 62 year old male with history of cecal adenocarcinoma s/p hemicolectomy here from the general surgery clinic with chest pain and shortness of breath. Patient notes his chest pain is midsternal, worse with any deep breath, cough, sniff. It is sharp, he notes that it radiates into his upper back over the lower ribs bilaterally. He denies any current worsening cough, congestion, fever, chills. No recent sick contacts. No prior cardiac history. No recent falls. No history of HTN. He is a marijuana smoker, not an active tobacco smoker, last smoked cigarettes about 20 years ago. Related Data Allergies Allergy/AdvReac Type Severity Reaction Status Date / Time Penicillins Allergy Mild rash Verified 02/04/23 10:43 Review of Systems Review of Systems: All systems reviewed & are unremarkable except as noted in HPI and below PMFSH Past Medical History Medical History Adenocarcinoma of cecum Ileocecal valve, stage II A Anemia History of tobacco abuse Marijuana abuse, continuous used for pain control r/t arthritis Osteoarthritis Surgical History Surgical History H/O hemicolectomy No pertinent past surgical history Family History Family History Father Cancer, Onset Age: 58 unclear primary source, was metastatic at time of diagnosis and was shortly after discovered Acute myocardial infarction, Onset Age: 58 Sibling Cancer brother, not close with family. unknown type. Sibling Cancer brother, colon cancer. Social History Social History Social History: Currently lives in [facility] in [place]. Lives alone with dogs. . Elects family friend, Jamie Sands, as surrogate decision maker. Code Status: Full Code, requesting no prolonged ventilation or permanent G-tube. Okay with temporary NG/OG. Smoking packs per day: 3 Smoking cigarettes per day: 60.0 Years smoked: 18 Smoking pack-years: 54.00 Smoking status: Former smoker Tobacco type: cigarettes Second hand tobacco smoke exposure: No Alcohol intake: never Substance use: current Substance use type: marijuana Other substance usage details: DAILY-MARIJUANA Do You Feel Safe in your Home?: Yes Lack of Transportation: No Lack of Food: Never True Current Housing: I Have Housing Concerned About Future Housing: No Difficulty Paying Gas/Electric Bills: No Difficulty Paying for Meds: No Currently Unemployed: No Education: Decline to Answer Difficulty w/ Childcare or Family Care: No Living arrangements: alone Occupation/Education: retired Gender identity (if verbalized by the patient): Male Sexual Orientation (if Verbalized by the Patient): Straight or Heterosexual Spiritual care concerns: No Exam Narrative: GENERAL: Well-appearing, well-nourished, and in no acute distress. HEAD: Normocephalic, atraumatic. EYES: PERRLA and EOMI. ENT: Nares clear. Mucous membranes moist. NECK: Supple. CHEST: Clear to auscultation. No respiratory distress. No reproducible chest wall tenderness. HEART: Regular rate and rhythm. Normal peripheral pulses. ABDOMEN: Soft, nontender, nondistended. EXTREMITIES: Normal range of motion. No midline thoracic or lumbar tenderness. No edema. SKIN: Warm, dry, no rash. NEURO: No focal deficits. Alert and oriented x3. PSYCH: Normal mood and affect. Course Course Emergency Course: Chart review performed. Patient here with back pain into chest with shortness of breath since last night. Triage vitals show tachycardia, tachypnea, otherwise normal. He was repo
[2023-02-18 12:31] LABS: NT Pro B Type Natriuretic Pept 118 pg/mL (19.9-100)
[2023-02-18] MEDS: ONDANSETRON INJ 4 MG/2 ML VIAL IV PUSH (12:49)
[2023-02-18] MEDS: MORPHINE SULFATE (*CRX) 4 MG/ML INJ IV PUSH (12:49)
--- NOTE | 2023-02-18 14:04 | ECG_ITS ---
Measurements Intervals [place] Rate: 100 P: 79 [place]: 167 QRS: -4 QRSD: 86 T: 74 QT: 341 QTc: 440 Interpretive Statements SINUS TACHYCARDIA POSSIBLE LEFT ATRIAL ENLARGEMENT BASELINE ARTIFACT- I, II, AVL BORDERLINE ECG COMPARED TO ECG 02/18/2023 10:34:38 NO SIGNIFICANT CHANGES Electronically Signed On 02-19-2023 12:48:55 POLICEWOMAN by Boni Jeff D.O.
[2023-02-18 14:10] LABS: Troponin I < 0.012 ng/mL (0.000-0.034)
[2023-02-18] MEDS: ENOXAPARIN 60 MG/0.6 ML SYRINGE 45 MG SUB-Q (16:20)
[2023-02-18 16:27] LABS: Influenza A QL RT-PCR Negative (Negative); Influenza B QL RT-PCR Negative (Negative); RSV RNA, RT-PCR Negative (Negative); SARS-CoV-2 RNA PCR Negative (Negative)
--- NOTE | 2023-02-18 16:45 | ECG_ITS ---
Measurements Intervals [place] Rate: 98 P: 57 [place]: 140 QRS: -24 QRSD: 86 T: 67 QT: 340 QTc: 435 Interpretive Statements SINUS RHYTHM POSSIBLE LEFT ATRIAL ENLARGEMENT VOLTAGE CRITERIA FOR LVH BASELINE WANDER - I, II BORDERLINE ECG COMPARED TO ECG 02/18/2023 14:04:26 SINUS RHYTHM NOW PRESENT LEFT VENTRICULAR HYPERTROPHY NOW PRESENT Electronically Signed On 02-19-2023 12:49:50 PUBLIC INFORMATION SPECIALIST by Boni Jeff D.O.
--- NOTE | 2023-02-18 16:59 | PM.IMHP ---
H&P: HPI History of Present Illness Date/Time: 02/18/23 16:59 Chief Complaint: Shortness of breath and chest pain Narrative: Patient is 62-year-old male who has extensive surgical history of colon cancer and multiple abdominal abscesses comes to the hospital complaining of severe shortness of breath and chest pain midsternal. Patient was seen in the emergency room appears very comfortable on 2 L of oxygen patient has no history of coronary disease noted any smoking no diabetes. Chest pain he defines as sharp radiating to the back to the left lower rib denies any congestion no fever no chills no sick contacts or recent travels no recent falls. Does have history of smoking marijuana. No recent surgeries no recent long travels Review of Systems Constitutional: Constitutional: Reports no additional constitutional complaints Cardiovascular: Cardiovascular: Reports chest pain Respiratory: Respiratory: Reports cough, Reports dyspnea and Reports dyspnea on exertion Gastrointestinal: Gastrointestinal: Reports no additional gastrointestinal complaints Genitourinary: Genitourinary: Reports no additional male genitourinary complaints PMFSH Past Medical History Medical History Adenocarcinoma of cecum Ileocecal valve, stage II A Anemia History of tobacco abuse Marijuana abuse, continuous used for pain control r/t arthritis Osteoarthritis Surgical History Surgical History H/O hemicolectomy No pertinent past surgical history Family History Family History (Updated 02/18/23 @ 18:51 by Carmina Dc RN) Father Acute myocardial infarction, Onset Age: 58 Cancer, Onset Age: 58 unclear primary source, was metastatic at time of diagnosis and was shortly after discovered Hypertension Sibling Cancer brother, not close with family. unknown type. Hypertension Sibling Cancer brother, colon cancer. Grandparent Hypertension Cerebrovascular accident maternal gradfather Grandparent Hypertension Cerebrovascular accident maternal grandma Sibling Chronic obstructive pulmonary disease sister Sibling Chronic obstructive pulmonary disease sister Grandparent Hypertension paternal grandma Grandparent Hypertension paternal grandpa Social History Social History Social History: [facility] [place]. Lives alone with dogs. . Elects family friend, Jamie Sands, as surrogate decision maker. Code Status: Full Code, requesting no prolonged ventilation or permanent G-tube. Okay with temporary NG/OG. Smoking packs per day: 3 Smoking cigarettes per day: 60.0 Years smoked: 18 Smoking pack-years: 54.00 Smoking status: Former smoker Second hand tobacco smoke exposure: No Alcohol intake: never Substance use: current Substance use type: marijuana Other substance usage details: DAILY-MARIJUANA Last use: 02/17/23 Do You Feel Safe in your Home?: Yes Lack of Transportation: No Lack of Food: Never True Current Housing: I Have Housing Concerned About Future Housing: No Difficulty Paying Gas/Electric Bills: No Difficulty Paying for Meds: No Currently Unemployed: No Education: High School Diploma/GED Difficulty w/ Childcare or Family Care: No Living arrangements: alone Occupation/Education: retired Gender identity (if verbalized by the patient): Male Sexual Orientation (if Verbalized by the Patient): Straight or Heterosexual Spiritual care concerns: No Meds Home Medications and Allergies Home Medications Medication Instructions Recorded Confirmed Type calcium carbonate 500 mg calcium 500 mg PO BID #60 tabs 01/29/23 02/18/23 Rx (1,250 mg) tablet (Oyster Shell Calcium 500) fe
[2023-02-18 17:05] LABS: Troponin I < 0.012 ng/mL (0.000-0.034)
--- NOTE | 2023-02-18 18:05 | ADMGEN ---
This patient, Jose Manuel Kelsey, was admitted to IMU Room 210-01. Patient/family oriented to hospital policies and general routines including ID bracelet, bed and alarms, visiting hours, pain management, procedures, bathroom and other care routines, personal items, smoking policy, room service/diet, and visiting hours. Information on how to activate the Rapid Response Team has been discussed. Patient/Family are encouraged to report perceived risks to care and to ask questions if they do not understand what they are told or what they should do.
[2023-02-18 19:33] LABS: Basophils Percent Auto 0.2 % (0.2-1.2); Eosinophils Absolute Auto 0.1 K/mm3 (0-0.3); Eosinophils Percent Auto 0.8 % (0-4.4); Hematocrit 36.9 % (42.0-52.0); Hemoglobin 11.3 g/dL (14.0-18.0); Immature Granulocyte Absolute 0.06 K/mm3 (0.00-0.031); Immature Granulocyte Percent A 0.6 % (0-0.5); Lymphocytes Absolute Auto 1.37 K/mm3 (0.9-3.2); Lymphocytes Percent Auto 13.2 % (18.3-44.2); Mean Corpuscular HGB Conc 30.6 g/dl (32-36); Mean Corpuscular Hemoglobin 29.1 pg (26-34); Mean Corpuscular Volume 95.1 fl (80-100); Mean Platelet Volume 8.7 fl (7.4-10.4); Monocytes Absolute Auto 0.9 K/mm3 (0.1-0.6); Monocytes Percent Auto 8.8 % (2.6-8.5); Neutrophils Absolute Auto 7.9 K/mm3 (1.3-6.7); Neutrophils Percent Auto 76.4 % (45.5-73.1); Platelet Count Result 236 k/mm3 (150-375); Red Blood Count 3.88 M/mm3 (4.6-6.20); Red Cell Distribution Width 17.2 % (11.5-14.5); White Blood Count 10.4 K/mm3 (4.5-10.0)
[2023-02-18] MEDS: MORPHINE SULFATE (*CRX) 2 MG/ML INJ IV PUSH (19:44)
[2023-02-19] VITALS (18 sets, daily range): BP systolic 118–135; BP diastolic 69–79; PULSE 74–95; RESP 18–20; TEMP 36.2–36.8; O2SAT 95–99; BMI 16.7
--- NOTE | 2023-02-19 | ECHO_ITS ---
Patient Info Name: Jose Manuel Kelsey Age: 62 years : 1960 Gender: Male Ht: 68 in Wt: 100 lbs BSA: 1.45 m2 HR: 85 bpm BP: 122 / 78 mmHg Heart Rhythm: Sinus Rhythm Technical Quality: Fair Exam Date: 02/19/2023 9:50 AM Exam Location: Echo Lab Patient Status: Inpatient Admit Date: 02/18/2023 Staff Ordering Physician: Adrian Abbott MD Shellfish Checker: Imani Marquez RDCS Attending Provider: Adrian Abbott MD Exam Type: CA echo doppler color flow Study Info Indications - PE Complete two-dimensional, color flow and Doppler transthoracic echocardiogram is performed. Summary 1. Complete two-dimensional, color flow and Doppler transthoracic echocardiogram is performed. 2. Left ventricular chamber dimension is normal. 3. Left ventricular systolic function is normal, estimated at 55-60%. 4. The left ventricular diastolic function is grade I diastolic dysfunction. 5. E/e' 5 is not elevated. 6. There is mild aortic valve sclerosis. 7. There is trace mitral valve regurgitation. 8. No pulmonary hypertension, estimated pulmonary arterial systolic pressure is 21 mmHg. Left Ventricle E/e' 5 is not elevated. Left ventricular chamber dimension is normal. Left ventricular systolic function is normal, estimated at 55-60%. The left ventricular diastolic function is grade I diastolic dysfunction. Right Ventricle Right ventricular systolic function is normal and with normal TAPSE 2.1 cm. Right ventricular chamber dimension is normal. Left Atria Left atrial chamber dimension is normal. Right Atria Right atrial chamber dimension is normal. Aortic Valve The aortic valve is trileaflet. There is mild aortic valve sclerosis. There is no aortic valve stenosis. There is no aortic valve regurgitation. Pulmonic Valve There is no pulmonic regurgitation. Mitral Valve There is no mitral valve stenosis. There is trace mitral valve regurgitation. Tricuspid Valve There is no tricuspid valve regurgitation. No pulmonary hypertension, estimated pulmonary arterial systolic pressure is 21 mmHg. Pericardium/Pleural There is no pericardial effusion. Inferior Vena Cava Normal inferior vena cava with >50% collapse upon inspiration consistent with normal right atrial pressure, 5 mmHg. Aorta The aortic root size at the sinus of Valsalva is normal. Left Ventricular Outflow Tract Name Value Normal LVOT 2D LVOT Diameter 2.0 cm LVOT Doppler LVOT Peak Gradient 3 mmHg LVOT Mean Gradient 2 mmHg LVOT VTI 14 cm LVOT VTI/AV VTI Ratio 0.7 LVOT Stroke Volume 45 ml LVOT CO 3.9 l/min LVOT CI 2.7 l/min/m2 Pulmonic Valve Name Value Normal RVOT Doppler RVOT Peak Gradient 2 mmHg PV Doppler
[2023-02-19] MEDS: MORPHINE SULFATE (*CRX) 2 MG/ML INJ IV PUSH ×4 (01:55→14:37)
[2023-02-19 05:19] LABS: Basophils Percent Auto 0.2 % (0.2-1.2); Eosinophils Absolute Auto 0.1 K/mm3 (0-0.3); Eosinophils Percent Auto 1.2 % (0-4.4); Hematocrit 37.3 % (42.0-52.0); Hemoglobin 11.5 g/dL (14.0-18.0); Immature Granulocyte Absolute 0.02 K/mm3 (0.00-0.031); Immature Granulocyte Percent A 0.2 % (0-0.5); Lymphocytes Absolute Auto 1.62 K/mm3 (0.9-3.2); Lymphocytes Percent Auto 16.7 % (18.3-44.2); Mean Corpuscular HGB Conc 30.8 g/dl (32-36); Mean Corpuscular Hemoglobin 29.1 pg (26-34); Mean Corpuscular Volume 94.4 fl (80-100); Mean Platelet Volume 9.4 fl (7.4-10.4); Monocytes Absolute Auto 0.9 K/mm3 (0.1-0.6); Monocytes Percent Auto 9.6 % (2.6-8.5); Neutrophils Percent Auto 72.1 % (45.5-73.1); Platelet Count Result 251 k/mm3 (150-375); Red Blood Count 3.95 M/mm3 (4.6-6.20); Red Cell Distribution Width 17.2 % (11.5-14.5); White Blood Count 9.7 K/mm3 (4.5-10.0)
[2023-02-19] MEDS: ENOXAPARIN 60 MG/0.6 ML SYRINGE 49 MG SUB-Q ×2 (05:59→18:30)
--- NOTE | 2023-02-19 12:12 | P.CDI_ITS ---
CDI Query Clarification Request Documentation in the medical record indicates that this patient has a BMI = 16.8 The following is also documented in the medical record: History of Adenocarcinoma of cecum, multiple abdominal abscesses, and hemicolectomy. Based on your medical judgement can you further clarify in the progress notes the diagnosis associated with these findings such as, if known: * Underweight * Cachexia * Emaciation * Malnutrition (Please specify severity) * Undernutrition * Anorexia * Other condition (Please specify) * None of the above/ Not applicable/ Unknown <Randi Carroll RN - Last Filed: 02/19/23 12:17> Provider Comments malnutrition:moderate <Vladislav Limon MD - Last Filed: 02/20/23 07:54>
--- NOTE | 2023-02-19 13:05 | PM.IMPN ---
Progress Note: A&P Assessment and Plan (1) Pulmonary embolism: Qualifiers: Acute cor pulmonale presence: unspecified Chronicity: acute Pulmonary embolism type: unspecified Qualified Code(s): I26.99 - Other pulmonary embolism without acute cor pulmonale Code(s): I26.99 - Other pulmonary embolism without acute cor pulmonale Status: Acute (2) Adenocarcinoma of cecum: Code(s): C18.0 - Malignant neoplasm of cecum Status: Chronic (3) Hypokalemia: Code(s): E87.6 - Hypokalemia Status: Acute (4) Anemia: Qualifiers: Anemia type: unspecified type Qualified Code(s): D64.9 - Anemia, unspecified Code(s): D64.9 - Anemia, unspecified Status: Acute (5) Weight loss: Code(s): R63.4 - Abnormal weight loss Status: Chronic (6) Marijuana abuse, continuous: Code(s): F12.10 - Cannabis abuse, uncomplicated Status: Acute Plan Acute pulmonary embolism bilaterally without hypoxemia or hypotension Continue oxygen. CT findings consistent with bilateral embolism. Start anticoagulation with Lovenox 1 milligram/kg b.i.d. therapeutic dose Monitor H&H. Monitor oxygen saturation and keep it above 90% Monitor for signs of hypotension. Monitor for signs of any local bruising due to anticoagulation. IV hydration for volume support. 2D echo for right heart strain evaluation which revealed normal EF with no signs of right heart strain. Counseling against smoking. History of colon cancer status post right hemicolectomy pathology with artery differentiated adenocarcinoma 7.5 x 7 by x 1.8 cm in size invades muscularis propria margins all chair lymph glands all negative T3 N0 lesion. Multiple tubular adenomas impact in going colon transverse colon ascending colon and cecum Status post extended right hemicolectomy with ileotransverse and sewn anastomosis line multiple right upper quadrant and perigastric abscess is Gastric antral perforation repaired on 01/23/2020 Oncology referral per General surgery unsure needs to be further treated Historyof gastric reflux continue Protonix. History of anemia continue iron supplement DVT prophylaxis. Lovenox Peptic ulcer disease with recent perforation place on PPI Code status full code dictation may have been done utilizing a voice recognition system. Attempts have been made to correct errors. However, there may be uncorrected grammatical, spelling, and recognition errors present. Subjective Date/time seen: 02/19/23 13:05 Interval history: Feeling better still has some intermittent pain but is improved compared to admission. Echo with EF 55-60% no pulmonary hypertension grade 1 diastolic dysfunction Review of Systems Review of Systems: All systems reviewed & are unremarkable except as noted in HPI and below Exam Narrative: GENERAL: Well appearing, no acute distress. HEAD: Normocephalic, atraumatic. NECK: Supple. No adenopathy, no masses. RESPIRATORY: respirations nonlabored. , no rales, wheezing. CARDIOVASCULAR: Regular rate and rhythm without murmurs, . Peripheral pulses 2+ and equal bilaterally. ABDOMINAL: Soft, nontender, nondistended, no hepatosplenomegaly. Normoactive BS. MUSCULOSKELETAL: no Epigastric and no hypochondrial tenderness SKIN: Warm, dry, NEURO: A&O X3. Moves all extremities Objective Data Vital Signs Vital Signs: Vital Signs - 24 hr 02/18/23 13:12 02/18/23 13:31 02/18/23 14:01 Temperature 98.0 F Pulse Rate 99 100 100 Respiratory Rate 24 H 22 H 20 Blood Pressure 152/95 H 160/79 H 142/74 H Pulse Oximetry 96 100 100 Oxygen Delivery 02/18/23 14:31 02/18/23 15:01 02/18/23 15:31 Temperature 97.5 F L 97.8 F Pulse Rate 95 97 101 H Respiratory Rate 20 20 20 Blood Pressure 134/74 136/75 143/78 H Pulse Oximetry 94 94 94 Oxygen Delivery 02/18/23 16:01 02/18/23 16:30 02/18/23 17:00 Temperature 98.0 F 97.8 F Pulse Rate 98 102 H 99 Res
[2023-02-19] MEDS: ACETAMINOPHEN 325 MG TABLET 650 MG PO (20:35)
[2023-02-20] VITALS (8 sets, daily range): BP systolic 111–132; BP diastolic 72–79; PULSE 75–99; RESP 18–20; TEMP 35.9–36.6; O2SAT 96–97
[2023-02-20 04:40] LABS: Basophils Percent Auto 0.2 % (0.2-1.2); Eosinophils Absolute Auto 0.2 K/mm3 (0-0.3); Eosinophils Percent Auto 1.8 % (0-4.4); Hematocrit 38.9 % (42.0-52.0); Hemoglobin 11.9 g/dL (14.0-18.0); Immature Granulocyte Absolute 0.04 K/mm3 (0.00-0.031); Immature Granulocyte Percent A 0.4 % (0-0.5); Lymphocytes Percent Auto 12.3 % (18.3-44.2); Mean Corpuscular HGB Conc 30.6 g/dl (32-36); Mean Corpuscular Hemoglobin 28.7 pg (26-34); Mean Platelet Volume 9.4 fl (7.4-10.4); Monocytes Absolute Auto 0.8 K/mm3 (0.1-0.6); Monocytes Percent Auto 8.8 % (2.6-8.5); Neutrophils Absolute Auto 6.8 K/mm3 (1.3-6.7); Neutrophils Percent Auto 76.5 % (45.5-73.1); Platelet Count Result 270 k/mm3 (150-375); Red Blood Count 4.14 M/mm3 (4.6-6.20); Red Cell Distribution Width 16.8 % (11.5-14.5)
[2023-02-20 04:49] LABS: Alanine Aminotransferase 21 U/L (6-50); Albumin Level 3.6 g/dL (3.5-5.1); Alkaline Phosphatase 83 U/L (38-126); Anion Gap 7 mmol/L (8-16); Aspartate Amino Transferase 25 U/L (17-59); Bilirubin,Total 0.5 mg/dL (0.2-1.3); Blood Urea Nitrogen 19 mg/dL (9-20); Calcium 9.3 mg/dL (8.4-10.2); Carbon Dioxide 32 mmol/L (22-30); Chloride 98 mmol/L (98-107); Estimated CRCL calculation 75 ml/min; Estimated Glomerular Filt Rate > 60; Glucose 159 mg/dL (65-110); Potassium 3.7 mmol/L (3.4-5.0); Sodium 137 mmol/L (137-145)
[2023-02-20] MEDS: ENOXAPARIN 60 MG/0.6 ML SYRINGE 49 MG SUB-Q ×2 (06:01→17:42)
[2023-02-20] MEDS: ACETAMINOPHEN 325 MG TABLET 650 MG PO (08:37)
--- NOTE | 2023-02-20 12:24 | PM.IMPN ---
Progress Note: A&P Assessment and Plan (1) Pulmonary embolism: Qualifiers: Acute cor pulmonale presence: unspecified Chronicity: acute Pulmonary embolism type: unspecified Qualified Code(s): I26.99 - Other pulmonary embolism without acute cor pulmonale Code(s): I26.99 - Other pulmonary embolism without acute cor pulmonale Status: Acute (2) Adenocarcinoma of cecum: Code(s): C18.0 - Malignant neoplasm of cecum Status: Chronic (3) Hypokalemia: Code(s): E87.6 - Hypokalemia Status: Acute (4) Anemia: Qualifiers: Anemia type: unspecified type Qualified Code(s): D64.9 - Anemia, unspecified Code(s): D64.9 - Anemia, unspecified Status: Acute (5) Weight loss: Code(s): R63.4 - Abnormal weight loss Status: Chronic (6) Marijuana abuse, continuous: Code(s): F12.10 - Cannabis abuse, uncomplicated Status: Acute Plan Acute pulmonary embolism bilaterally without hypoxemia or hypotension Continue oxygen. CT findings consistent with bilateral embolism. Start anticoagulation with Lovenox 1 milligram/kg b.i.d. therapeutic dose his unable to give himself a shot and does not have any other family members at home with plan to switch him to oral anticoagulant at discharge Monitor H&H. Monitor oxygen saturation and keep it above 90% Monitor for signs of hypotension. Monitor for signs of any local bruising due to anticoagulation. IV hydration for volume support. 2D echo for right heart strain evaluation which revealed normal EF with no signs of right heart strain. Counseling against smoking. History of colon cancer status post right hemicolectomy pathology with artery differentiated adenocarcinoma 7.5 x 7 by x 1.8 cm in size invades muscularis propria margins all chair lymph glands all negative T3 N0 lesion. Multiple tubular adenomas impact in going colon transverse colon ascending colon and cecum Status post extended right hemicolectomy with ileotransverse and sewn anastomosis line multiple right upper quadrant and perigastric abscess is Gastric antral perforation repaired on 01/23/2020 Oncology referral per General surgery unsure needs to be further treated Historyof gastric reflux continue Protonix. History of anemia continue iron supplement DVT prophylaxis. Lovenox Peptic ulcer disease with recent perforation place on PPI Code status full code dictation may have been done utilizing a voice recognition system. Attempts have been made to correct errors. However, there may be uncorrected grammatical, spelling, and recognition errors present. Subjective Date/time seen: 02/20/23 12:24 Interval history: Feeling better. Chest pain has improved. Remains afebrile no cough Review of Systems Review of Systems: All systems reviewed & are unremarkable except as noted in HPI and below Exam Narrative: GENERAL: Well appearing, no acute distress. HEAD: Normocephalic, atraumatic. NECK: Supple. No adenopathy, no masses. RESPIRATORY: respirations nonlabored. , no rales, wheezing. CARDIOVASCULAR: Regular rate and rhythm without murmurs, . Peripheral pulses 2+ and equal bilaterally. ABDOMINAL: Soft, nontender, nondistended, no hepatosplenomegaly. Normoactive BS. MUSCULOSKELETAL: no Epigastric and no hypochondrial tenderness SKIN: Warm, dry, NEURO: A&O X3. Moves all extremities Objective Data Vital Signs Vital Signs: Vital Signs - 24 hr 02/19/23 15:56 02/19/23 14:00 02/19/23 16:00 Temperature 97.5 F L Pulse Rate 91 89 88 Respiratory Rate 18 Blood Pressure 130/75 Pulse Oximetry 97 Oxygen Delivery 02/19/23 18:00 02/19/23 16:00 02/19/23 20:00 Temperature 97.1 F L Pulse Rate 90 95 Respiratory Rate 18 Blood Pressure 118/79 Pulse Oximetry 98 Oxygen Delivery Room Air 02/19/23 20:00 02/19/23 20:00 02/19/23 22:00 Temperature Pulse Rate 86 74 Respiratory Rate Blood P
[2023-02-21 06:00] VITALS: BP 117/68; PULSE 87; RESP 20; TEMP 36.8; O2SAT 98
[2023-02-21 07:14] LABS: Hematocrit 42.5 % (42.0-52.0); Hemoglobin 13.2 g/dL (14.0-18.0); Mean Corpuscular HGB Conc 31.1 g/dl (32-36); Mean Corpuscular Volume 93.4 fl (80-100); Platelet Count Result 318 k/mm3 (150-375); Red Blood Count 4.55 M/mm3 (4.6-6.20); Red Cell Distribution Width 16.7 % (11.5-14.5); White Blood Count 9.2 K/mm3 (4.5-10.0)
[2023-02-21] MEDS: ENOXAPARIN 60 MG/0.6 ML SYRINGE 49 MG SUB-Q (07:15)
[2023-02-21 07:25] LABS: Anion Gap 10 mmol/L (8-16); Blood Urea Nitrogen 21 mg/dL (9-20); Calcium 9.7 mg/dL (8.4-10.2); Carbon Dioxide 30 mmol/L (22-30); Chloride 99 mmol/L (98-107); Estimated CRCL calculation 63 ml/min; Estimated Glomerular Filt Rate > 60; Glucose 144 mg/dL (65-110); Potassium 3.6 mmol/L (3.4-5.0); Sodium 139 mmol/L (137-145)
[2023-02-21 08:00] VITALS: O2SAT 98
--- NOTE | 2023-02-21 11:59 | PM.IMPN ---
Progress Note: A&P Assessment and Plan (1) Pulmonary embolism: Qualifiers: Acute cor pulmonale presence: unspecified Chronicity: acute Pulmonary embolism type: unspecified Qualified Code(s): I26.99 - Other pulmonary embolism without acute cor pulmonale Code(s): I26.99 - Other pulmonary embolism without acute cor pulmonale Status: Acute (2) Adenocarcinoma of cecum: Code(s): C18.0 - Malignant neoplasm of cecum Status: Chronic (3) Hypokalemia: Code(s): E87.6 - Hypokalemia Status: Acute (4) Anemia: Qualifiers: Anemia type: unspecified type Qualified Code(s): D64.9 - Anemia, unspecified Code(s): D64.9 - Anemia, unspecified Status: Acute (5) Weight loss: Code(s): R63.4 - Abnormal weight loss Status: Chronic (6) Marijuana abuse, continuous: Code(s): F12.10 - Cannabis abuse, uncomplicated Status: Acute Plan Acute pulmonary embolism bilaterally without hypoxemia or hypotension Continue oxygen. CT findings consistent with bilateral embolism. Start anticoagulation with Lovenox 1 milligram/kg b.i.d. therapeutic dose his unable to give himself a shot and does not have any other family members at home with plan to switch him to oral anticoagulant at discharge. Will switch to oral Eliquis Monitor H&H. Monitor oxygen saturation and keep it above 90% Monitor for signs of hypotension. Monitor for signs of any local bruising due to anticoagulation. IV hydration for volume support. 2D echo for right heart strain evaluation which revealed normal EF with no signs of right heart strain. Counseling against smoking. History of colon cancer status post right hemicolectomy pathology with artery differentiated adenocarcinoma 7.5 x 7 by x 1.8 cm in size invades muscularis propria margins all chair lymph glands all negative T3 N0 lesion. Multiple tubular adenomas impact in going colon transverse colon ascending colon and cecum Status post extended right hemicolectomy with ileotransverse and sewn anastomosis line multiple right upper quadrant and perigastric abscess is Gastric antral perforation repaired on 01/23/2020 Oncology referral per General surgery unsure needs to be further treated Historyof gastric reflux continue Protonix. History of anemia continue iron supplement DVT prophylaxis. Lovenox Peptic ulcer disease with recent perforation place on PPI Code status full code Disposition: Unable to go back home care coordination consult Subjective Date/time seen: 02/21/23 11:59 Interval history: No overnight events he feels better no further chest pain ambulating well Review of Systems Review of Systems: All systems reviewed & are unremarkable except as noted in HPI and below Exam Narrative: GENERAL: Well appearing, no acute distress. HEAD: Normocephalic, atraumatic. NECK: Supple. No adenopathy, no masses. RESPIRATORY: respirations nonlabored. , no rales, wheezing. CARDIOVASCULAR: Regular rate and rhythm without murmurs, . Peripheral pulses 2+ and equal bilaterally. ABDOMINAL: Soft, nontender, nondistended, no hepatosplenomegaly. Normoactive BS. MUSCULOSKELETAL: no Epigastric and no hypochondrial tenderness SKIN: Warm, dry, NEURO: A&O X3. Moves all extremities Objective Data Vital Signs Vital Signs: Vital Signs - 24 hr 02/20/23 20:00 02/20/23 22:00 02/21/23 06:00 Temperature 97.8 F 98.2 F Pulse Rate 92 99 87 Respiratory Rate 20 18 20 Blood Pressure 111/72 117/68 Pulse Oximetry 97 97 98 Oxygen Delivery Room Air 02/21/23 08:00 Temperature Pulse Rate Respiratory Rate Blood Pressure Pulse Oximetry 98 Oxygen Delivery Room Air Intake/Output Intake/Output: Intake & Output 02/18/23 02/19/23 02/20/23 02/21/23 23:59 23:59 23:59 23:59 Intake Total 800 840 705 Output Total 1300 352 200 Balance -500 488 505 Meds/Results Medications: Active Medications Ge
[2023-02-21 14:00] VITALS: BP 119/83; PULSE 93; RESP 18; TEMP 36.9; O2SAT 98
[2023-02-21] MEDS: APIXABAN 5 MG TABLET 10 MG PO (20:51)
[2023-02-21 23:47] VITALS: BP 115/64; PULSE 89; RESP 18; TEMP 37.1; O2SAT 97
[2023-02-22 05:06] VITALS: BP 108/64; PULSE 83; RESP 18; TEMP 36.8; O2SAT 99
[2023-02-22 06:32] LABS: Basophils Percent Auto 0.5 % (0.2-1.2); Eosinophils Absolute Auto 0.3 K/mm3 (0-0.3); Eosinophils Percent Auto 3.7 % (0-4.4); Hematocrit 37.9 % (42.0-52.0); Hemoglobin 11.9 g/dL (14.0-18.0); Immature Granulocyte Absolute 0.02 K/mm3 (0.00-0.031); Immature Granulocyte Percent A 0.3 % (0-0.5); Lymphocytes Absolute Auto 1.86 K/mm3 (0.9-3.2); Lymphocytes Percent Auto 23.5 % (18.3-44.2); Mean Corpuscular HGB Conc 31.4 g/dl (32-36); Mean Corpuscular Hemoglobin 29.5 pg (26-34); Mean Corpuscular Volume 93.8 fl (80-100); Mean Platelet Volume 9.6 fl (7.4-10.4); Monocytes Absolute Auto 0.7 K/mm3 (0.1-0.6); Monocytes Percent Auto 9.2 % (2.6-8.5); Neutrophils Percent Auto 62.8 % (45.5-73.1); Platelet Count Result 287 k/mm3 (150-375); Red Blood Count 4.04 M/mm3 (4.6-6.20); Red Cell Distribution Width 16.5 % (11.5-14.5); White Blood Count 7.9 K/mm3 (4.5-10.0)
[2023-02-22 06:47] LABS: Alanine Aminotransferase 21 U/L (6-50); Albumin Level 3.3 g/dL (3.5-5.1); Alkaline Phosphatase 82 U/L (38-126); Anion Gap 6 mmol/L (8-16); Aspartate Amino Transferase 23 U/L (17-59); Bilirubin,Total 0.5 mg/dL (0.2-1.3); Blood Urea Nitrogen 16 mg/dL (9-20); Carbon Dioxide 29 mmol/L (22-30); Chloride 102 mmol/L (98-107); Estimated CRCL calculation 72 ml/min; Estimated Glomerular Filt Rate > 60; Glucose 92 mg/dL (65-110); Magnesium 1.9 mg/dL (1.6-2.3); Potassium 3.6 mmol/L (3.4-5.0); Sodium 137 mmol/L (137-145)
[2023-02-22 08:00] VITALS: O2SAT 99
[2023-02-22] MEDS: APIXABAN 5 MG TABLET 10 MG PO (08:02)
--- NOTE | 2023-02-22 12:04 | PM.DS ---
DS: Admitting Diagnosis Discharge Date 02/22/2023 Admitting Diagnosis Chest pain DS: Discharge Diagnosis Discharge Diagnosis (1) Pulmonary embolism: Qualifiers: Acute cor pulmonale presence: unspecified Chronicity: acute Pulmonary embolism type: unspecified Qualified Code(s): I26.99 - Other pulmonary embolism without acute cor pulmonale Code(s): I26.99 - Other pulmonary embolism without acute cor pulmonale Status: Acute (2) Adenocarcinoma of cecum: Code(s): C18.0 - Malignant neoplasm of cecum Status: Chronic (3) Hypokalemia: Code(s): E87.6 - Hypokalemia Status: Acute (4) Anemia: Qualifiers: Anemia type: unspecified type Qualified Code(s): D64.9 - Anemia, unspecified Code(s): D64.9 - Anemia, unspecified Status: Acute (5) Weight loss: Code(s): R63.4 - Abnormal weight loss Status: Chronic (6) Marijuana abuse, continuous: Code(s): F12.10 - Cannabis abuse, uncomplicated Status: Acute DS: Summary Hospital Course Hospital Course: # acute pulmonary embolism bilaterally without hypoxemia or hypotension required oxygen initially CT findings consistent with bilateral embolism. Started on Lovenox therapeutic doses. Switch to Eliquis at discharge. Off oxygen by the time of discharge symptomatically improved as well. Echo revealed normal EF with no signs of right heart strain. ? # history of colon cancer status post right hemicolectomy pathology with artery differentiated adenocarcinoma 7.5 x 7 by x 1.8 cm in size invades muscularis propria margins all chair lymph glands all negative T3 N0 lesion. Multiple tubular adenomas impact in going colon transverse colon ascending colon and cecum Status post extended right hemicolectomy with ileotransverse and sewn anastomosis line multiple right upper quadrant and perigastric abscess is Gastric antral perforation repaired on 01/23/2024 Oncology referral per General surgery unsure needs to be further treated # Historyof gastric reflux continue Protonix.? # History of anemia continue iron supplement ? # DVT prophylaxis.? Lovenox # Peptic ulcer disease with recent perforation place on PPI # Code status full code Time Spent with Patient Time attestation: Total time spent providing and/or coordinating discharge services: Exam Narrative: GENERAL: Well appearing, no acute distress. HEAD: Normocephalic, atraumatic. NECK: Supple. No adenopathy, no masses. RESPIRATORY: respirations nonlabored. , no rales, wheezing. CARDIOVASCULAR: Regular rate and rhythm without murmurs, . Peripheral pulses 2+ and equal bilaterally. ABDOMINAL: Soft, nontender, nondistended, no hepatosplenomegaly. Normoactive BS. MUSCULOSKELETAL: no Epigastric and no hypochondrial tenderness SKIN: Warm, dry, NEURO: A&O X3. Moves all extremities DS: Data Data Completed and Pending Completed studies during hospitalization: Exam Type: ? ? CA echo doppler color flow Study Info Indications ?? ? - PE Complete two-dimensional, color flow and Doppler transthoracic echocardiogram is performed. Account #: ? ? [id number] Summary ? 1. Complete two-dimensional, color flow and Doppler transthoracic echocardiogram is performed. ? 2. Left ventricular chamber dimension is normal. ? 3. Left ventricular systolic function is normal, estimated at 55-60%. ? 4. The left ventricular diastolic function is grade I diastolic dysfunction. ? 5. E/e' 5 is not elevated. ? 6. There is mild aortic valve sclerosis. ? 7. There is trace mitral valve regurgitation. ? 8. No pulmonary hypertension, estimated pulmonary arterial systolic pressure is 21 mmHg. Left Ventricle ? E/e' 5 is not elevated. ? Left ventricular chamber dimension is normal. ? Left ventricular systolic function is normal, estimated at 55-60%. ? The left ventricular diastolic function is grade I diastolic dysfunction. Right Ventricle ? Right ventricu
== END 2023-02-22 12:48 | disposition home or self-care (01) | DRG 176 ==
LOC: ANHED 15:56 → ANHIMU 17:30 → ANH3MEDSUR 02-20 14:39
PROVIDERS: Emergency Medicine; Internal Medicine; Admitting Provider Internal Medicine; Emergency Provider Student in an Organized Health Care Education/Training Program; PCP Family Medicine; Visit Provider Internal Medicine
DX: I26.99 Other pulmonary embolism without acute cor pulmonale (principal); E44.0 Moderate protein-calorie malnutrition; Z68.1 Body mass index [BMI] 19.9 or less, adult; D64.9 Anemia, unspecified; E87.6 Hypokalemia; F12.10 Cannabis abuse, uncomplicated; J43.9 Emphysema, unspecified; K21.9 Gastro-esophageal reflux disease without esophagitis; M19.90 Unspecified osteoarthritis, unspecified site; Z28.21 Immunization not carried out because of patient refusal; Z20.822 Contact with and (suspected) exposure to COVID-19; Z85.038 Personal history of other malignant neoplasm of large intestine; Z90.49 Acquired absence of other specified parts of digestive tract; Z87.891 Personal history of nicotine dependence
CPT/HCPCS: 36415; 71046; 71275; 74177; 80048; 80053; 83690; 83735; 83880; 84484; 85025; 85027; 85610; 85730; 87637; 93005; 93306; 96372; 96374; 96375; 99291; A9270; G0378; J1650; J2270; J2405; Q9967

== ENCOUNTER 2023-04-14 10:55 | Outpatient (CLI) | payer MEDICARE, SELFPAY ==
--- NOTE | ~2023-04-14 | XR_ITS ---
Left Knee Technique: AP, lateral, and sunrise views were obtained. Clinical History: Pain Findings: No fracture or dislocation is seen. Osseous alignment is anatomic. Joint spaces are preserv ed without degenerative or erosive change. Soft tissues are unremarkable. No joint effusion is seen. Impression: Unremarkable left knee radiographs. Reviewed, dictated and finalized at location . CATION ASSOCIATE Impression: Unremarkable left knee radiographs.
--- NOTE | ~2023-04-14 | XR_ITS ---
Right Knee Technique: AP, lateral, and sunrise views were obtained. Clinical History: Pain Findings: No fracture or dislocation is seen. Osseous alignment is anatomic. Joint spaces are preserv ed without degenerative or erosive change. Soft tissues are unremarkable. No joint effusion is seen. Impression: Unremarkable right knee radiographs. Reviewed, dictated and finalized at location . OYEE RELATIONS ASSISTANT Impression: Unremarkable right knee radiographs.
== END 2023-04-14 10:56 ==
PROVIDERS: PCP Family Medicine; Visit Provider Family Medicine
DX: G89.29 Other chronic pain (principal); M25.562 Pain in left knee; M25.561 Pain in right knee
CPT/HCPCS: 73564

== ENCOUNTER 2023-04-21 02:54 | Day surgery (SDC) | payer MEDICARE, SELFPAY ==
[2023-04-15 08:35] VITALS: BMI 19.5
--- NOTE | 2023-04-19 09:21 | SUR.PREOP ---
Patient called regarding upcoming procedure. Voicemail left regarding appointment times.
[2023-04-21 13:47] VITALS: BMI 19.2
[2023-04-21] MEDS: LACTATED RINGERS 1,000 ML 150 ML IV CONT (13:50)
[2023-04-21 14:00] VITALS: BP 111/63; PULSE 63; RESP 18; TEMP 36.4; O2SAT 100
--- NOTE | 2023-04-21 14:19 | WPDANESEPPF ---
Anes - Initial Pre Proc Eval Procedure: Operation Date: 04/21/23 14:30 Proposed Procedures p Esophagogastroduodenoscopy - Mehdi Ramon MD Date/Time: 04/21/23 14:19 Surgeon: Mehdi Ramon MD Pre Op Diagnosis: Chronic or unspecified gastric ulcer with perfor. Patient Data Age: 62 Gender: M Height: 1.73 m Weight: 57.3 kg Allergies Allergy/AdvReac Type Severity Reaction Status Date / Time Penicillins Allergy Intermediate rash Verified 04/21/23 13:45 Home Medications Medication Instructions Recorded Confirmed Type apixaban 5 mg tablet (Eliquis) 5 mg PO Q12HR #180 tabs 04/13/23 04/15/23 Rx Patient hx anesthesia problems: none Family hx anesthesia problems: none Results Review: All pre-operative results and documents have been reviewed as part of the pre-operative evaluation. [facility] Past Medical History Medical History (Updated 04/14/23 @ 08:04 by Shay Kerns MD) 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, stage II A Anemia Bilateral chronic knee pain Blood clot in vein Colon polyps History of tobacco abuse Marijuana abuse, continuous used for pain control r/t arthritis Neoplasm of ascending colon Osteoarthritis Perforated gastric ulcer (~01/2023) Ulcer Surgical History Surgical History H/O hemicolectomy (~01/22/23) Hepatic abscess (~01/2023) s/p percutaneus drainage History of abdominal surgery (~01/22/23) Extended right hemicolectomy with ileo transverse hand-sewn anastomosis, drainage of multiple right upper quadrant and perigastric abscesses, repair gastric antral perforation, omentoplasty History of tonsillectomy Family History Family History Father Acute myocardial infarction, Onset Age: 58 Cancer, Onset Age: 58 unclear primary source, was metastatic at time of diagnosis and was shortly after discovered Hypertension Sibling Cancer brother, not close with family. unknown type. Hypertension Sibling Cancer brother, colon cancer. Grandparent Hypertension Cerebrovascular accident maternal gradfather Grandparent Hypertension Cerebrovascular accident maternal grandma Sibling Chronic obstructive pulmonary disease sister Sibling Chronic obstructive pulmonary disease sister Grandparent Hypertension paternal grandma Grandparent Hypertension paternal grandpa Social History Social History Social History: Currently lives in [facility] in [place]. Lives alone with dogs. . Elects family friend, Jamie Sands, as surrogate decision maker. Code Status: Full Code, requesting no prolonged ventilation or permanent G-tube. Okay with temporary NG/OG. Smoking packs per day: 3 Smoking cigarettes per day: 60.0 Years smoked: 20 Smoking pack-years: 60.00 Smoking status: Former smoker Tobacco type: cigarettes Second hand tobacco smoke exposure: No Alcohol intake: current Substance use: current Substance use type: marijuana Other substance usage details: CURRENLTY FOR KNEE PAIN- SMOKES- DAILY Last use: 02/17/23 Do You Feel Safe in your Home?: Yes Lack of Transportation: No Lack of Food: Never True Current Housing: I Have Housing Concerned About Future Housing: No Difficulty Paying Gas/Electric Bills: No Difficulty Paying for Meds: No Currently Unemployed: No Education: High School Diploma/GED Difficulty w/ Childcare or Family Care: No Living arrangements: with family Occupation/Education: retired Gender identity (if verbalized by the patient): Male Sexual Orientation (if Verbalized by the Patient): Straight or Heterosexual Spiritual care concerns: No Anes - Eval Final PreProcedure Day of Procedure 04/20
--- NOTE | 2023-04-21 14:41 | PM.HPGS ---
History of Present Illness History of Present Illness Consent: Risks, benefits, and alternatives have been discussed and questions answered. Patient agrees to proceed with procedure. Chief complaint: Chronic or unspecified gastric ulcer with perfor. Narrative: Jose Manuel Kelsey is a 62 year old male with multiple medical problems including colon cancer and perforated gastric ulcer s/p repair gastric antral perforation, omentoplasty 01/2023, he is not longer using ppi, also PE on eliquis. No recent EGD. 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, stage II A Anemia Bilateral chronic knee pain Blood clot in vein Colon polyps History of tobacco abuse Marijuana abuse, continuous used for pain control r/t arthritis Neoplasm of ascending colon Osteoarthritis Perforated gastric ulcer (~01/2023) Ulcer Surgical History Surgical History H/O hemicolectomy (~01/22/23) Hepatic abscess (~01/2023) s/p percutaneus drainage History of abdominal surgery (~01/22/23) Extended right hemicolectomy with ileo transverse hand-sewn anastomosis, drainage of multiple right upper quadrant and perigastric abscesses, repair gastric antral perforation, omentoplasty History of tonsillectomy Family History Family History Father Acute myocardial infarction, Onset Age: 58 Cancer, Onset Age: 58 unclear primary source, was metastatic at time of diagnosis and was shortly after discovered Hypertension Sibling Cancer brother, not close with family. unknown type. Hypertension Sibling Cancer brother, colon cancer. Grandparent Hypertension Cerebrovascular accident maternal gradfather Grandparent Hypertension Cerebrovascular accident maternal grandma Sibling Chronic obstructive pulmonary disease sister Sibling Chronic obstructive pulmonary disease sister Grandparent Hypertension paternal grandma Grandparent Hypertension paternal grandpa Social History Social History Social History: Currently lives in [facility] in [place]. Lives alone with dogs. . Elects family friend, Jamie Sands, as surrogate decision maker. Code Status: Full Code, requesting no prolonged ventilation or permanent G-tube. Okay with temporary NG/OG. Smoking packs per day: 3 Smoking cigarettes per day: 60.0 Years smoked: 20 Smoking pack-years: 60.00 Smoking status: Former smoker Tobacco type: cigarettes Second hand tobacco smoke exposure: No Alcohol intake: current Substance use: current Substance use type: marijuana Other substance usage details: CURRENLTY FOR KNEE PAIN- SMOKES- DAILY Last use: 02/17/23 Do You Feel Safe in your Home?: Yes Lack of Transportation: No Lack of Food: Never True Current Housing: I Have Housing Concerned About Future Housing: No Difficulty Paying Gas/Electric Bills: No Difficulty Paying for Meds: No Currently Unemployed: No Education: High School Diploma/GED Difficulty w/ Childcare or Family Care: No Living arrangements: with family Occupation/Education: retired Gender identity (if verbalized by the patient): Male Sexual Orientation (if Verbalized by the Patient): Straight or Heterosexual Spiritual care concerns: No Meds Home Medications and Allergies Home Medications Medication Instructions Recorded Confirmed Type apixaban 5 mg tablet (Eliquis) 5 mg PO Q12HR #180 tabs 04/13/23 04/15/23 Rx Allergies Allergy/AdvReac Type Severity Reaction Status Date / Time Penicillins Allergy Interm
[2023-04-21 14:55] VITALS: BP 93/60; PULSE 68; RESP 17; O2SAT 98
[2023-04-21 15:05] VITALS: BP 107/73; PULSE 65; RESP 21; O2SAT 98
[2023-04-21 15:15] VITALS: BP 123/77; PULSE 64; RESP 22; O2SAT 100
== END 2023-04-21 15:30 | disposition home or self-care (01) ==
PROVIDERS: PCP Family Medicine; Referring Provider Surgery; Visit Provider Internal Medicine Gastroenterology
PROC: 0DJ08ZZ Inspection of Upper Intestinal Tract, Via Natural or Artificial Opening Endoscopic (ICD-10-PCS; CPT 43235; principal; 2023-04-21 14:30)
DX: Z09 Encounter for follow-up examination after completed treatment for conditions other than malignant neoplasm (principal); Z87.11 Personal history of peptic ulcer disease; Z85.038 Personal history of other malignant neoplasm of large intestine; Z79.01 Long term (current) use of anticoagulants; Z90.49 Acquired absence of other specified parts of digestive tract; Z98.0 Intestinal bypass and anastomosis status; F12.90 Cannabis use, unspecified, uncomplicated; Z87.891 Personal history of nicotine dependence; Z86.711 Personal history of pulmonary embolism
CPT/HCPCS: 43239; 88305; J2704; J7120

== ENCOUNTER 2023-04-28 16:21 | Outpatient (CLI) | payer MEDICARE, SELFPAY ==
[2023-04-28 17:14] LABS: Basophils Percent Auto 0.4 % (0.2-1.2); Eosinophils Absolute Auto 0.1 K/mm3 (0-0.3); Eosinophils Percent Auto 1.6 % (0-4.4); Hematocrit 41.2 % (42.0-52.0); Hemoglobin 13.3 g/dL (14.0-18.0); Immature Granulocyte Absolute 0.02 K/mm3 (0.00-0.031); Immature Granulocyte Percent A 0.2 % (0-0.5); Lymphocytes Absolute Auto 2.35 K/mm3 (0.9-3.2); Lymphocytes Percent Auto 28.5 % (18.3-44.2); Mean Corpuscular HGB Conc 32.3 g/dl (32-36); Mean Corpuscular Hemoglobin 30.6 pg (26-34); Mean Corpuscular Volume 94.7 fl (80-100); Mean Platelet Volume 10.5 fl (7.4-10.4); Monocytes Absolute Auto 0.6 K/mm3 (0.1-0.6); Neutrophils Absolute Auto 5.2 K/mm3 (1.3-6.7); Neutrophils Percent Auto 62.3 % (45.5-73.1); Platelet Count Result 204 k/mm3 (150-375); Red Blood Count 4.35 M/mm3 (4.6-6.20); Red Cell Distribution Width 14.1 % (11.5-14.5); White Blood Count 8.3 K/mm3 (4.5-10.0)
[2023-04-28 18:12] LABS: Alanine Aminotransferase 19 U/L (6-50); Albumin Level 4.2 g/dL (3.5-5.1); Alkaline Phosphatase 67 U/L (38-126); Anion Gap 5 mmol/L (8-16); Aspartate Amino Transferase 27 U/L (17-59); Bilirubin,Total 0.4 mg/dL (0.2-1.3); Blood Urea Nitrogen 8 mg/dL (9-20); Calcium 9.4 mg/dL (8.4-10.2); Carbon Dioxide 29 mmol/L (22-30); Chloride 106 mmol/L (98-107); Estimated Glomerular Filt Rate > 60; Glucose 91 mg/dL (65-110); Potassium 3.7 mmol/L (3.4-5.0); Sodium 140 mmol/L (137-145)
[2023-04-30 14:31] LABS: Carcinoembryonic Antigen 2.5 ng/mL (0.0-3.0)
[2023-04-30 15:36] LABS: Iron 72 ug/dL (49-181)
[2023-04-30 15:48] LABS: Percent Iron Saturation 23 % (20-50)
== END 2023-04-28 16:22 | disposition home or self-care (01) ==
LOC: ANHLAB 16:24
PROVIDERS: PCP Family Medicine; Visit Provider Internal Medicine Hematology & Oncology
DX: D64.9 Anemia, unspecified (principal); C18.9 Malignant neoplasm of colon, unspecified
CPT/HCPCS: 36415; 80053; 82378; 82728; 83540; 83550; 85025

== ENCOUNTER 2023-04-30 06:57 | Outpatient (CLI) | payer MEDICARE, SELFPAY ==
--- NOTE | ~2023-04-30 | CT_ITS ---
Clinical Indication: Colon cancer CT Scan of the Chest, Abdomen, and Pelvis with Contrast: Technique: Contiguous sections were acquired throughout the chest, abdomen, and pelvis after intraven ous administration of 100 cc of Omnipaque 350. Dose reduction technique was used on this scan by alberto mirandaing automated exposure control and iterative reconstruction technique. The dose-length product (DL P) was 300.30 mGy-cm. COMPARISON: 02/18/2023 Findings: There is no evidence of any significant mediastinal, hilar or axillary lymphadenopathy. The mediastin al soft tissues appear normal. There is no evidence of pleural or pericardial effusion. There is focal right basilar pleural-based consolidation/nodularity (axial image 112). Lungs are othe rwise clear. Mild emphysema. The liver, spleen, pancreas, gallbladder, adrenals and kidneys are within normal limits. There are at herosclerotic calcifications of the aorta. No lymphadenopathy. No bowel obstruction or bowel wall thickening. Evidence of prior right hemicolectomy. Urinary bladder is unremarkable. No pelvic mass seen. No ascites. Impression: No definite evidence for recurrent malignancy or metastatic disease. Focal pleural-based consolidation at the right lung base has morphology most suggestive of rounded at electasis. Focal pneumonia not excluded. Status post right hemicolectomy. Reviewed, dictated and finalized at location . Impression: No definite evidence for recurrent malignancy or metastatic disease. Focal pleural-based consolidation at the right lung base has morphology most veronica ggestive of rounded atelectasis. Focal pneumonia not excluded. Status post right hemicolectomy.
== END 2023-04-30 06:58 | disposition home or self-care (01) ==
PROVIDERS: PCP Family Medicine; Visit Provider Internal Medicine Hematology & Oncology
DX: C18.9 Malignant neoplasm of colon, unspecified (principal)
CPT/HCPCS: 71260; 74177; Q9967

== ENCOUNTER 2023-07-22 13:22 | Outpatient (CLI) | payer MEDICARE, SELFPAY ==
[2023-07-22 14:29] LABS: Prothrombin Time 13.8 Seconds (11.1-14.7)
== END 2023-07-22 13:23 | disposition home or self-care (01) ==
LOC: ANHLAB 13:24
PROVIDERS: PCP Family Medicine; Visit Provider Nurse Practitioner Family
DX: Z79.01 Long term (current) use of anticoagulants (principal)
CPT/HCPCS: 36415; 85610

== ENCOUNTER 2023-08-16 13:18 | Outpatient (CLI) | payer MEDICARE, SELFPAY ==
[2023-08-16 13:47] LABS: Basophils Percent Auto 0.4 % (0.2-1.2); Eosinophils Absolute Auto 0.1 K/mm3 (0-0.3); Eosinophils Percent Auto 1.6 % (0-4.4); Hematocrit 40.7 % (42.0-52.0); Hemoglobin 13.2 g/dL (14.0-18.0); Immature Granulocyte Absolute 0.01 K/mm3 (0.00-0.031); Immature Granulocyte Percent A 0.1 % (0-0.5); Lymphocytes Absolute Auto 2.09 K/mm3 (0.9-3.2); Lymphocytes Percent Auto 26.4 % (18.3-44.2); Mean Corpuscular HGB Conc 32.4 g/dl (32-36); Mean Corpuscular Hemoglobin 31.6 pg (26-34); Mean Corpuscular Volume 97.4 fl (80-100); Mean Platelet Volume 9.6 fl (7.4-10.4); Monocytes Absolute Auto 0.7 K/mm3 (0.1-0.6); Monocytes Percent Auto 8.2 % (2.6-8.5); Neutrophils Percent Auto 63.3 % (45.5-73.1); Platelet Count Result 179 k/mm3 (150-375); Red Blood Count 4.18 M/mm3 (4.6-6.20); Red Cell Distribution Width 14.1 % (11.5-14.5); White Blood Count 7.9 K/mm3 (4.5-10.0)
[2023-08-16 16:46] LABS: Alanine Aminotransferase 15 U/L (6-50); Albumin Level 4.4 g/dL (3.5-5.1); Alkaline Phosphatase 64 U/L (38-126); Anion Gap 8 mmol/L (4-12); Aspartate Amino Transferase 26 U/L (17-59); Bilirubin,Total 0.5 mg/dL (0.2-1.3); Blood Urea Nitrogen 19 mg/dL (9-20); Calcium 9.2 mg/dL (8.4-10.2); Carbon Dioxide 28 mmol/L (22-30); Chloride 104 mmol/L (98-107); Estimated Glomerular Filt Rate > 60; Glucose 117 mg/dL (65-110); Sodium 140 mmol/L (137-145)
[2023-08-16 17:14] LABS: Carcinoembryonic Antigen 3.5 ng/mL (0.0-3.0)
== END 2023-08-16 13:19 | disposition home or self-care (01) ==
LOC: ANHLAB 13:20
PROVIDERS: Visit Provider Internal Medicine Hematology & Oncology
DX: C18.9 Malignant neoplasm of colon, unspecified (principal)
CPT/HCPCS: 36415; 80053; 82378; 85025

== ENCOUNTER 2023-11-13 12:35 | Outpatient (CLI) | payer MEDICARE, SELFPAY ==
--- NOTE | ~2023-11-13 | CT_ITS ---
CT of the Abdomen and Pelvis: Indication: Colon cancer Technique: 2.5 mm axial scans were obtained through the abdomen and pelvis following intravenous adm inistration of 100 cc of Omnipaque 350. Dose reduction technique was used on this scan by utilizing a utomated exposure control and iterative reconstruction technique. The dose-length product (DLP) was 2 09.83 mGy-cm. COMPARISON: 04/30/2023 Findings: Scans through the lung bases demonstrate focal right basilar consolidation, similar to daniel or exam. The liver, spleen, pancreas, gallbladder, adrenals and kidneys are within normal limits. There are at herosclerotic calcifications of the aorta. No lymphadenopathy. No bowel obstruction or bowel wall thickening. Evidence of prior right hemicolectomy. Images through the pelvis were performed. Urinary bladder unremarkable. No pelvic mass seen. No ascit es. Impression: No change from prior exam. No evidence for active malignancy or metastatic disease. Stable focal right basilar consolidation, possibly chronic atelectasis. Prior right hemicolectomy. Reviewed, dictated and finalized at location . Impression: No change from prior exam. No evidence for active malignancy or metastatic dise ase. Stable focal right basilar consolidation, possibly chronic atelectasis. Prior right hemicolectomy.
[2023-11-13 13:04] LABS: Estimated Glomerular Filt Rate > 60
== END 2023-11-13 12:36 | disposition home or self-care (01) ==
LOC: ANHIMG 12:46
PROVIDERS: Visit Provider Internal Medicine Hematology & Oncology
DX: C18.9 Malignant neoplasm of colon, unspecified (principal)
CPT/HCPCS: 74177; Q9967

== ENCOUNTER 2023-11-17 09:50 | Outpatient (CLI) | payer MEDICARE, SELFPAY ==
[2023-11-17 10:02] LABS: Basophils Percent Auto 0.3 % (0.2-1.2); Eosinophils Absolute Auto 0.1 K/mm3 (0-0.3); Eosinophils Percent Auto 1.5 % (0-4.4); Hematocrit 41.8 % (42.0-52.0); Hemoglobin 13.8 g/dL (14.0-18.0); Immature Granulocyte Absolute 0.02 K/mm3 (0.00-0.031); Immature Granulocyte Percent A 0.3 % (0-0.5); Lymphocytes Absolute Auto 1.98 K/mm3 (0.9-3.2); Lymphocytes Percent Auto 25.1 % (18.3-44.2); Mean Corpuscular Hemoglobin 32.1 pg (26-34); Mean Corpuscular Volume 97.2 fl (80-100); Mean Platelet Volume 9.7 fl (7.4-10.4); Monocytes Absolute Auto 0.5 K/mm3 (0.1-0.6); Monocytes Percent Auto 6.7 % (2.6-8.5); Neutrophils Absolute Auto 5.2 K/mm3 (1.3-6.7); Neutrophils Percent Auto 66.1 % (45.5-73.1); Platelet Count Result 190 k/mm3 (150-375); Red Cell Distribution Width 13.2 % (11.5-14.5); White Blood Count 7.9 K/mm3 (4.5-10.0)
[2023-11-17 12:36] LABS: Alanine Aminotransferase 17 U/L (6-50); Albumin Level 4.4 g/dL (3.5-5.1); Alkaline Phosphatase 60 U/L (38-126); Anion Gap 6 mmol/L (4-12); Aspartate Amino Transferase 26 U/L (17-59); Bilirubin,Total 0.4 mg/dL (0.2-1.3); Blood Urea Nitrogen 23 mg/dL (9-20); Calcium 9.1 mg/dL (8.4-10.2); Carbon Dioxide 27 mmol/L (22-30); Chloride 105 mmol/L (98-107); Estimated Glomerular Filt Rate > 60; Glucose 125 mg/dL (65-110); Potassium 4.3 mmol/L (3.4-5.0); Sodium 138 mmol/L (137-145)
[2023-11-17 13:05] LABS: Carcinoembryonic Antigen 4.3 ng/mL (0.0-3.0)
== END 2023-11-17 09:51 | disposition home or self-care (01) ==
LOC: ANHLAB 09:50
PROVIDERS: Visit Provider Internal Medicine Hematology & Oncology
DX: C18.9 Malignant neoplasm of colon, unspecified (principal)
CPT/HCPCS: 36415; 80053; 82378; 85025

== ENCOUNTER 2024-01-03 00:09 | Day surgery (SDC) | payer MEDICARE, SELFPAY ==
[2023-12-22 09:41] VITALS: BMI 19.8
[2024-01-03 08:59] VITALS: BP 119/63; PULSE 59; RESP 18; TEMP 36.7; O2SAT 100
[2024-01-03] MEDS: LACTATED RINGERS 1,000 ML 150 ML IV CONT (09:09)
--- NOTE | 2024-01-03 09:45 | P.HP_ITS ---
H&P: [facility] History of Present Illness Date/Time: 01/03/24 09:45 Chief Complaint: History of colon cancer Narrative: the patient has a diagnosis of cecal carcinoma, and underwent right hemicolectomy approximately 1 year ago. He is here for his surveillance colonoscopy. 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, stage II A Anemia Bilateral chronic knee pain Blood clot in vein Colon polyps Corneal abrasion History of tobacco abuse [facility] (current) use of anticoagulants Marijuana abuse, continuous used for pain control r/t arthritis Neoplasm of ascending colon Osteoarthritis Perforated gastric ulcer (~01/2023) Ulcer Surgical History Surgical History H/O hemicolectomy (~01/22/23) Hepatic abscess (~01/2023) s/p percutaneus drainage History of abdominal surgery (~01/22/23) Extended right hemicolectomy with ileo transverse hand-sewn anastomosis, drainage of multiple right upper quadrant and perigastric abscesses, repair gastric antral perforation, omentoplasty History of tonsillectomy Family History Family History Father Acute myocardial infarction, Onset Age: 58 Cancer, Onset Age: 58 unclear primary source, was metastatic at time of diagnosis and was shortly after discovered Hypertension Sibling Cancer brother, not close with family. unknown type. Hypertension Sibling Cancer brother, colon cancer. Grandparent Hypertension Cerebrovascular accident maternal gradfather Grandparent Hypertension Cerebrovascular accident maternal grandma Sibling Chronic obstructive pulmonary disease sister Sibling Chronic obstructive pulmonary disease sister Grandparent Hypertension paternal grandma Grandparent Hypertension paternal grandpa Social History Social History Social History: Currently lives in [facility] in [place]. Lives alone with dogs. . Elects family friend, Jamie Sands, as surrogate decision maker. Code Status: Full Code, requesting no prolonged ventilation or permanent G-tube. Okay with temporary NG/OG. Smoking packs per day: 3 Smoking cigarettes per day: 60.0 Years smoked: 45 Smoking pack-years: 135.00 Smoking status: Former smoker Tobacco type: cigarettes Second hand tobacco smoke exposure: No Alcohol intake: never Substance use: current Substance use type: marijuana Other substance usage details: SMOKES MARIJUANA Last use: 02/17/23 Do You Feel Safe in your Home?: Yes Lack of Transportation: No Lack of Food: Never True Current Housing: I Have Housing Concerned About Future Housing: No Difficulty Paying Gas/Electric Bills: No Difficulty Paying for Meds: No Currently Unemployed: No Education: High School Diploma/GED Difficulty w/ Childcare or Family Care: No Living arrangements: alone Additional living arrangements comments: PT LIVES IN [facility] [place] [place], USES FRIEND JAMIE'S ADDRESS Occupation/Education: retired Gender identity (if verbalized by the patient): Male Sexual Orientation (if Verbalized by the Patient): Straight or Heterosexual Spiritual care concerns: No Meds Home Medications and Allergies Home Medications Medication Instructions Recorded Confirmed Type aspirin 81 mg tablet 81 mg PO DAILY 01/03/24 01/03/24 History Allergies Allergy/AdvReac Type Severity Reaction Status Date / Time Penicillins Allergy Intermediate rash Verified 01/03/24 08:56 Vital Signs Vital Signs - 24 hr 01/03/24 08:59 Temperature 98.1 F Pulse Rate 59 L Respiratory Rate 18 Blood Pressure 119/63 Pulse Oximetry 100 Oxygen Delivery Room Air Exam Const: General: cooperative and healthy appearing Resp: Effort & Inspection: normal respiratory effort and able to speak in complete sentences Auscultation: clear to auscultation bilaterally Cardio: Rate: regular rate Rhythm: regular rhythm GI: Inspection: normal to inspection GI Palp: No No hepatosplenomegaly present Auscultation: normal bowel sounds Rectal Exam: deferred Skin: General skin exam: normal color Psych: Appearance: grossly normal Mental Status: mental status grossly normal Assessment and Plan Assessment and plan (1) Adenocarcinoma of cecum: Onset Date: ~01/2023 Code(s): C18.0 - Malignant neoplasm of cecum Status: Chronic Assessment and Plan: The patient is deemed a good candidate for the procedure. Consent signed. Wi ll proceed.
--- NOTE | 2024-01-03 09:55 | P.PNAN_ITS ---
Anes - Initial Pre Proc Eval Procedure: Operation Date: 01/03/24 09:30 Proposed Procedures p Colonoscopy - Steven Cota MD Date/Time: 01/03/24 09:55 Surgeon: Steven Cota MD Pre Op Diagnosis: colon cancer Patient Data Age: 63 Gender: M Height: 1.73 m Weight: 60.6 kg Last Vital Signs Temp 98.1 F 01/03/24 08:59 Pulse 59 L 01/03/24 08:59 Resp 18 01/03/24 08:59 BP 119/63 01/03/24 08:59 Pulse Ox 100 01/03/24 08:59 O2 Del Method Room Air 01/03/24 08:59 Allergies Allergy/AdvReac Type Severity Reaction Status Date / Time Penicillins Allergy Intermediate rash Verified 01/03/24 08:56 Home Medications Medication Instructions Recorded Confirmed Type aspirin 81 mg tablet 81 mg PO DAILY 01/03/24 01/03/24 History Patient hx anesthesia problems: none Family hx anesthesia problems: none Results Review: All pre-operative results and documents have been reviewed as part of the pre- operative evaluation. 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 Marijuana abuse, continuous used for pain control r/t arthritis Neoplasm of ascending colon Osteoarthritis Perforated gastric ulcer (~01/2023) Ulcer Surgical History Surgical History H/O hemicolectomy (~01/22/23) Hepatic abscess (~01/2023) s/p percutaneus drainage History of abdominal surgery (~01/22/23) Extended right hemicolectomy with ileo transverse hand-sewn anastomosis, drainage of multiple right upper quadrant and perigastric abscesses, repair gastric antral perforation, omentoplasty History of tonsillectomy Family History Family History Father Acute myocardial infarction, Onset Age: 58 Cancer, Onset Age: 58 unclear primary source, was metastatic at time of diagnosis and was shortly after discovered Hypertension Sibling Cancer brother, not close with family. unknown type. Hypertension Sibling Cancer brother, colon cancer. Grandparent Hypertension Cerebrovascular accident maternal gradfather Grandparent Hypertension Cerebrovascular accident maternal grandma Sibling Chronic obstructive pulmonary disease sister Sibling Chronic obstructive pulmonary disease sister Grandparent Hypertension paternal grandma Grandparent Hypertension paternal grandpa Social History Social History Social History: Currently lives in [facility] in [place]. Lives alone with dogs. . Elects family friend, Jamie Sands, as surrogate decision maker. Code Status: Full Code, requesting no prolonged ventilation or permanent G-tube. Okay with temporary NG/OG. Smoking packs per day: 3 Smoking cigarettes per day: 60.0 Years smoked: 45 Smoking pack-years: 135.00 Smoking status: Former smoker Tobacco type: cigarettes Second hand tobacco smoke exposure: No Alcohol intake: never Substance use: current Substance use type: marijuana Other substance usage details: SMOKES MARIJUANA Last use: 02/17/23 Do You Feel Safe in your Home?: Yes Lack of Transportation: No Lack of Food: Never True Current Housing: I Have Housing Concerned About Future Housing: No Difficulty Paying Gas/Electric Bills: No Difficulty Paying for Meds: No Currently Unemployed: No Education: High School Diploma/GED Difficulty w/ Childcare or Family Care: No Living arrangements: alone Additional living arrangements comments: PT LIVES IN HIS [facility], USES FRIEND JAMIE'S ADDRESS Occupation/Education: retired Gender identity (if verbalized by the patient): Male Sexual Orientation (if Verbalized by the Patient): Straight or Heterosexual Spiritual care concerns: No Anes - Eval Final PreProcedure Day of Procedure 01/03/24 09:55 Patient weight: normal Heart: regular rate and rhythm Lungs: clear to auscultation Airway: Mallampati scale class II Neurological: alert and oriented Last oral intake: >/= 8 hours ASA classification: III Emergent: no Anesthetic plan: proceed Anesthesia type and monitoring: general GIVS and standard monitoring Results Review: All pre-operative results and documents have been reviewed as part of the pre- operative evaluation. Informed Consent: The patient's anesthetic plan and its attendant risks and benefits were discussed with the patient/family/POA. Questions were solicited and answers provided to the satisfaction of the patient/family/POA.
[2024-01-03 10:52] VITALS: BP 89/57; PULSE 76; RESP 20; O2SAT 97
[2024-01-03 11:02] VITALS: BP 97/61; PULSE 70; RESP 18; O2SAT 97
[2024-01-03 11:12] VITALS: BP 124/71; PULSE 66; RESP 19; O2SAT 99
== END 2024-01-03 11:25 | disposition home or self-care (01) ==
PROVIDERS: Referring Provider Internal Medicine Hematology & Oncology; Visit Provider Internal Medicine Gastroenterology
PROC: 0DJD8ZZ Inspection of Lower Intestinal Tract, Via Natural or Artificial Opening Endoscopic (ICD-10-PCS; CPT 45378; principal; 2024-01-03 09:30)
DX: Z08 Encounter for follow-up examination after completed treatment for malignant neoplasm (principal); K64.0 First degree hemorrhoids; K57.30 Diverticulosis of large intestine without perforation or abscess without bleeding; D64.9 Anemia, unspecified; G89.29 Other chronic pain; M25.562 Pain in left knee; M25.561 Pain in right knee; F12.90 Cannabis use, unspecified, uncomplicated; Z79.82 Long term (current) use of aspirin; Z79.01 Long term (current) use of anticoagulants; Z98.890 Other specified postprocedural states; Z90.49 Acquired absence of other specified parts of digestive tract; Z87.891 Personal history of nicotine dependence; Z86.0100 Personal history of colon polyps, unspecified; Z85.038 Personal history of other malignant neoplasm of large intestine; Z80.0 Family history of malignant neoplasm of digestive organs; Z82.49 Family history of ischemic heart disease and other diseases of the circulatory system
CPT/HCPCS: 45378; J1100; J1596; J2003; J2405; J2704; J7120

== ENCOUNTER 2024-03-29 09:24 | Outpatient (CLI) | payer MEDICARE, SELFPAY ==
--- OUTSIDE RECORDS SUMMARY | 2024-03-29 09:33 | XMS_ITS | Clinical Summary ---
Author Organization [facility] Ginna [facility] Address [address] [place] [place] [address] Care Team Providers Care Engineering Specialist Name Role Phone Kayla Kerns MD Primary Care Provider Allergies Active Allergy Reactions Criticality Noted Date Comments Penicillins Unknown 04/28/2023 Medications No known medications Active Problems No known active problems Encounters Date Type Department Care Team Description 02/15/2024 External Device Data [facility] ABSTRACTION Provider, Abstract from Last 3 Months Family History Medical History Relation Name Comments Lung Cancer Father Heart Disease Mother Relation Name Status Comments Father Mother Sister Alive Social History Tobacco Use Types Packs/Day Years Used Date Smoking Tobacco: Former Cigarettes 3 35 1 969 - 2004 Smokeless Tobacco: Never Alcohol Use Standard Drinks/Week Comments Never 0 (1 standard drink = 0.6 oz pur e alcohol) Sex and Gender Information Value Date Recorded Sex Assigned at Not on file Legal Sex Male 7:58 AM CDT Gender Identity Not on file Sexual Orientation Not on file Last Filed Vital Signs Vital Sign Reading Time Taken Comments Blood Pressure 161/90 11/18/2023 2:35 PM CDT Pulse 82 11/18/2023 2:33 PM CDT Temperature 36.8 C (98.2 F) 11/18/2023 2:33 PM CDT Respiratory Rate 15 11/18/2023 2:33 PM CDT Oxygen Saturation 97% 11/18/2023 2:33 PM CDT Inhaled Oxygen Concentration - - Weight 59 kg (130 lb) 11/18/2023 2:33 PM CDT Height 172.7 cm (5' 8 ) 04/28/2023 3:09 PM CDT Body Mass Index 19.77 04/28/2023 3:09 PM CDT Plan of Treatment Upcoming Encounters Date Type Department Care Team (Late st Contact Info) Description 03/31/2024 8:45 AM 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 Office Visit [facility] Oncology and Hematology - [place] [address] [facility] [address] [place] [address] Peña Smith MD [address] [place] [address] Health Maintenance Due Date Last Done Comments DTAP/TDAP/TD VACCINES (1 - Tdap) 1977 PNEUMOCOCCAL VACCINE 65+ YEARS (1 of 1 - PCV) 10/01/19 09 ZOSTER VACCINE (1 of 2) 2008 INFLUENZA VACCINE (#1) 2023 Abdominal Aortic Aneurysm (AAA) Screening 10/01/2023 [place] ([place]) Prev entative Visit/Annual Wellness Visit 02/09/2024 RSV VACCINE (60+ or ) (1 - 1-dose 75+ series) 2033 Insurance [facility] [id number] [place] [id number] Care Teams Engineering Specialist Relationship Specialty Start Date End Date Kayla Kerns MD [address] [place] [address] PCP - General Family Practice 04/21/23
--- OUTSIDE RECORDS SUMMARY | 2024-03-29 09:33 | XMS_ITS | Clinical Summary ---
Author Organization [facility] Address [address] [place] [id number] Care Team Providers Care Student Dean Name Role Phone Unavailable Primary Care Provider Unavailabl e Social History Tobacco Use Types Packs/Day Years Used Date Smoking Tobacco: Never Assessed Sex and Gender Information Value Date Recorded Sex Assigned at Not on file Legal Sex Male 3:19 AM CDT Gender Identity Not on file Sexual Orientation Not on file Plan of Treatment Health Maintenance Due Date Last Done Comments Colorectal Cancer Screening Colonoscopy (10 Years) 1958 PHQ-2 (Physician [place]) 1970 Hepatitis C 1976 DTaP, Tdap and Td Vaccines ( 1 - Tdap) 1977 Zoster Vaccines (1 of 2) 2008 Pneumococcal Vaccine: 65+ Ye ars (1 of 1 - PCV) 10/01/2023 COVID-19 Vaccine (1 - 2023-2 5 season) 2023 Influenza Adult (#1) 2023 PHQ-2 (Physician [place]) 02/09/2024 RSV Immunization or 60+ Years (1 - 1-dose 75+ series) 2033 Meningococcal B Vaccine Aged Out No l onger eligible based on patient's age to complete this topic Meningococcal Vaccine Aged Out No kristen rachele eligible based on patient's age to complete this topic Pneumococcal Vaccine: Pediat rics (0 to 5 Years) and At-Risk Patients (6 to 64 Years) Aged Out No longer eligible b ased on patient's age to complete this topic RSV Immunizations Under 20 Months Aged Out No longer eligible based on patient's age to complete this topic Insurance [facility] [place] [id number]
[2024-03-29 10:00] LABS: Basophils Percent Auto 0.3 % (0.2-1.2); Eosinophils Absolute Auto 0.1 K/mm3 (0-0.3); Eosinophils Percent Auto 0.9 % (0-4.4); Hematocrit 38.8 % (42.0-52.0); Hemoglobin 12.6 g/dL (14.0-18.0); Immature Granulocyte Absolute 0.02 K/mm3 (0.00-0.031); Immature Granulocyte Percent A 0.3 % (0-0.5); Lymphocytes Absolute Auto 1.84 K/mm3 (0.9-3.2); Lymphocytes Percent Auto 24.4 % (18.3-44.2); Mean Corpuscular HGB Conc 32.5 g/dl (32-36); Mean Corpuscular Hemoglobin 31.3 pg (26-34); Mean Corpuscular Volume 96.5 fl (80-100); Mean Platelet Volume 9.6 fl (7.4-10.4); Monocytes Absolute Auto 0.6 K/mm3 (0.1-0.6); Monocytes Percent Auto 7.4 % (2.6-8.5); Neutrophils Percent Auto 66.7 % (45.5-73.1); Platelet Count Result 201 k/mm3 (150-375); Red Blood Count 4.02 M/mm3 (4.6-6.20); Red Cell Distribution Width 13.3 % (11.5-14.5); White Blood Count 7.5 K/mm3 (4.5-10.0)
[2024-03-29 12:03] LABS: Alanine Aminotransferase 19 U/L (6-50); Albumin Level 4.2 g/dL (3.5-5.1); Alkaline Phosphatase 74 U/L (38-126); Anion Gap 6 mmol/L (4-12); Aspartate Amino Transferase 25 U/L (17-59); Bilirubin,Total 0.3 mg/dL (0.2-1.3); Blood Urea Nitrogen 17 mg/dL (9-20); Calcium 9.2 mg/dL (8.4-10.2); Carbon Dioxide 30 mmol/L (22-30); Chloride 105 mmol/L (98-107); Estimated Glomerular Filt Rate > 60; Glucose 99 mg/dL (65-110); Potassium 4.6 mmol/L (3.4-5.0); Sodium 141 mmol/L (137-145)
[2024-03-29 12:28] LABS: Carcinoembryonic Antigen 4.1 ng/mL (0.0-3.0)
== END 2024-03-29 09:25 | disposition home or self-care (01) ==
LOC: ANHLAB 09:25
PROVIDERS: Visit Provider Internal Medicine Hematology & Oncology
DX: C18.9 Malignant neoplasm of colon, unspecified (principal)
CPT/HCPCS: 36415; 80053; 82378; 85025

== ENCOUNTER 2024-05-16 09:04 | Outpatient (CLI) | payer MEDICARE, SELFPAY ==
--- NOTE | ~2024-05-16 | XR_ITS ---
XR abdomen/kub 1V 05/16/2024 09:28 INDICATION: Abdomen pain. TECHNIQUE: KUB COMPARISON: KUB dated 07/02/[address] abdomen dated 11/13/2023 FINDINGS: Bowel gas pattern is normal. There are calcified granulomas of the spleen. There is no evid ence of free air, mass, organomegaly, ascites or obstruction. No abnormal calculi are seen. The bon es appear intact. Mild dextroscoliosis of the lumbar spine. There is a sclerotic lesion of the left f emoral neck unchanged from prior CT and KUB, likely benign bone island or infarct. IMPRESSION: 1: No acute abdominal abnormality identified. Reviewed, dictated and finalized at location A.
--- OUTSIDE RECORDS SUMMARY | 2024-05-16 09:51 | XMS_ITS | Encounter Summary ---
Author Organization [facility] [address] [facility] Address [address] [place] [address] Care Team Providers Care Driver Guide Name Role Phone Unavailable Primary Care Provider Unavailabl e Reason for Referral * Radiology Services (Routine) - Closed Specialty Diagnoses / Procedures Referred By Contac t Referred To Contact Diagnoses Generalized abdominal pain Procedures XR ABDOMEN 1 VW Peña Smith MD [email or web address] [place] [phone] Phone: tel: fax: [place] [phone] Referral ID Status Reason Start Date Expiration Date V isits Requested Visits Authorized [id number] Closed [facility] CTS 05/15/2024 06/15/2025 1 1 Reason for Visit * Reason Onset Date Comments Abdominal Pain 05/15/2024 Encounter Details Date Type Department Care Team (Late st Contact Info) Description 05/15/2024 Telephone [facility] Oncology and Hematology [address] [place] [address] Peña Smith MD [email or web address] [place] [address] Abdominal Pain Social History Tobacco Use Types Packs/Day Years [...] on file Sexual Orientation Not on file documented as of this encounter Miscellaneous Notes * Telephone Encounter - Chloe Marrufo - 05/15/2024 8:47 AM CDT Patient said that he is still having the pain. He is going to come in tomorrow to get the KUB done. * Telephone Encounter - Chloe Marrufo - 05/15/2024 8:47 AM CDT ----- Message from Dr. Peña Smith sent at 05/12/2024 5:14 PM CDT ----- Regarding: RE: ABD Pain We can order the KUB x-ray next week if the pain persist. ----- Message ----- From: Chloe Marrufo Sent: 05/12/2024 11:42 AM CDT To: Peña Smith MD Subject: ABD Pain Patient called and stated that he is having abd pain. He said that it is in his lower abdomen. He said that it has been going on about 2 months now. He does not have a PCP. He said that its not constant that it comes and goes and that sometimes its on the left side and other times its on the right side. He is asking recommendations on what to do? Please advise. documented in this encounter Plan of Treatment Upcoming Encounters Date Type Department Care Team (Late st Contact Info) Description 08/04/2024 8:30 AM CDT Office Visit [facility] Oncology and Hematology - [place] L [address] [place] [address] Peña Smith MD [address] [facility] [address] [place] [address] Scheduled Orders Name Type Priority Associated Diagnoses Orde r Schedule XR ABDOMEN 1 VW Imaging Routine Generalized abdominal pain Expected: 05/15/2024, Expires: 05/15/2025 documented as of this encounter Visit Diagnoses Diagnosis Generalized abdominal pain- Primary Abdominal pain, generalized documented in this encounter
--- OUTSIDE RECORDS SUMMARY | 2024-05-16 09:51 | XMS_ITS | Clinical Summary ---
Author Organization [facility] Ginna jiang Charo Address [address] [place] [address] Care Team Providers Care Cutter Brake Lining Name Role Phone Unavailable Primary Care Provider Unavailabl e Allergies Active Allergy Reactions Criticality Noted Date Comments Penicillins Unknown 04/28/2023 Medications No known medications Active Problems No known active problems Encounters Date Type Department Care Team Description 05/15/2024 Telephone [facility] Oncology and [facility] [address] [facility] [address] [place] [address] Peña Smith MD Abdominal Pain 03/31/2024 8:45 AM SCRAP CRANE OPERATOR Office Visit [facility] Oncology and [facility] [address] [place] [address] Peña Smith MD Malignant neoplasm of colon, unspecified part of colon (CMS/HCC) (Primary Dx); Chronic anemia from Last 3 Months Family History Medical History Relation Name Comments Lung Cancer Father Heart Disease Mother Relation Name Status Comments Father Mother Sister Alive Social History Tobacco Use Types Packs/Day Years Used Date Smoking Tobacco: Former Cigarettes 3 35 1 969 - 2004 Smokeless Tobacco: Never Tobacco Cessation:Counseling Given: Not Answered Alcohol Use Standard Drinks/Week Comments Never 0 (1 standard drink = 0.6 oz pur e alcohol) Sex and Gender Information Value Date Recorded Sex Assigned at Not on file Legal Sex Male 7:58 AM CDT Gender Identity Not on file Sexual Orientation Not on file Last Filed Vital Signs Vital Sign Reading Time Taken Comments Blood Pressure 113/68 03/31/2024 8:43 AM SCRAP CRANE OPERATOR Pulse 85 03/31/2024 8:43 AM SCRAP CRANE OPERATOR Temperature 36.8 C (98.3 F) 03/31/2024 8:43 AM SCRAP CRANE OPERATOR Respiratory Rate 16 03/31/2024 8:43 AM SCRAP CRANE OPERATOR Oxygen Saturation 97% 03/31/2024 8:43 AM SCRAP CRANE OPERATOR Inhaled Oxygen Concentration - - Weight 63.2 kg (139 lb 6.4 oz) 03/31/2024 8:43 A M SCRAP CRANE OPERATOR Height 172.7 cm (5' 8 ) 04/28/2023 3:09 PM CDT Body Mass Index 21.2 04/28/2023 3:09 PM CDT Plan of Treatment Upcoming Encounters Date Type Department Care Team (Late st Contact Info) Description 08/04/2024 8:30 AM CDT Office Visit [facility] Oncology and Hematology - Jorge L [address] [facility] [address] [place] [address] Peña Smith MD [address] [facility] [address] [place] [address] Health Maintenance Due Date Last Done Comments DTAP/TDAP/TD VACCINES (1 - Tdap) 1977 PNEUMOCOCCAL VACCINE 50+ YEARS (1 of 1 - PCV) 10/01/19 09 ZOSTER VACCINE (1 of 2) 2008 INFLUENZA VACCINE (#1) 2023 Abdominal Aortic Aneurysm (AAA) Screening 10/01/2023 [place]) Prev entative Visit/Annual Wellness Visit 02/09/2024 RSV VACCINE (60+ or ) (1 - 1-dose 75+ series) 2033 Insurance [facility] [id number]
--- OUTSIDE RECORDS SUMMARY | 2024-05-16 09:51 | XMS_ITS | Clinical Summary ---
Author Organization [facility] Address [address] [place] [address] Care Team Providers Care Statistics Tutor Name Role Phone Unavailable Primary Care Provider [...] Colorectal Cancer Screening Colonoscopy (10 Years) 1958 Hepatitis C 1976 DTaP, Tdap and Td Vaccines ( 1 - Tdap) 1977 Zoster Vaccines (1 of 2) 2008 Pneumococcal Vaccine: 65+ Ye ars (1 of 1 - PCV) 10/01/2023 COVID-19 Vaccine (1 - 2023-2 5 season) 2023 PHQ-2 (Physician [place]) 02/09/2024 RSV Immunization or 60+ Years (1 [...] patient's age to complete this topic Insurance [facility] [place] [id number]
== END 2024-05-16 09:05 | disposition home or self-care (01) ==
LOC: ANHIMG 09:10
PROVIDERS: Visit Provider Internal Medicine Hematology & Oncology
DX: R10.31 Right lower quadrant pain (principal); Z85.038 Personal history of other malignant neoplasm of large intestine
CPT/HCPCS: 74018

== ENCOUNTER 2024-05-18 16:41 | Emergency (ER) | payer MEDICARE, SELFPAY ==
--- OUTSIDE RECORDS SUMMARY | 2024-05-18 16:44 | XMS_ITS | Clinical Summary ---
Author Organization [facility] Ginna jiang Charo Address [address] [place] [address] Care Team Providers Care Perishable Fruit Inspector Name Role Phone Unavailable Primary Care Provider Unavailabl e Allergies Active Allergy Reactions Criticality Noted Date Comments Penicillins Unknown 04/28/2023 Medications No known medications Active Problems No known active problems Encounters Date Type Department Care Team Description 05/17/2024 Telephone [facility] Oncology and Hematology - Jorge L [address] [place] [phone] Peña Smith MD Abdominal Pain 05/16/2024 Orders Only [facility] Oncology and Hematology [facility] [address] [place] [address] Peña Smith MD 05/15/2024 Telephone [facility] Oncology and Hematology [facility] [address] [place] [address] Peña Smith MD Abdominal Pain 03/31/2024 8:45 AM SUPERVISOR PREPRESS Office Visit [facility] Oncology and Hematology [facility] [address] [place] [address] Peña Smith MD Malignant neoplasm [...] Comments Blood Pressure 113/68 03/31/2024 8:43 AM SUPERVISOR PREPRESS Pulse 85 03/31/2024 8:43 AM SUPERVISOR PREPRESS Temperature 36.8 C (98.3 F) 03/31/2024 8:43 AM SUPERVISOR PREPRESS Respiratory Rate 16 03/31/2024 8:43 AM SUPERVISOR PREPRESS Oxygen Saturation 97% 03/31/2024 8:43 AM SUPERVISOR PREPRESS Inhaled Oxygen Concentration - - Weight 63.2 kg (139 lb 6.4 oz) 03/31/2024 8:43 A M SUPERVISOR PREPRESS Height 172.7 cm (5' 8 ) 04/28/2023 3:09 PM CDT Body Mass Index 21.2 04/28/2023 3:09 PM CDT Plan of Treatment Upcoming Encounters Date Type Department Care Team (Late st Contact Info) Description 08/04/2024 8:30 AM CDT Office Visit [facility] Oncology and Hematology - [place] [address] [place] [address] [facility] [address] [place] [address] Peña Smith MD [address] [facility] [address] [place] [address] Health Maintenance Due Date Last Done Comments DTAP/TDAP/TD VACCINES (1 - Tdap) 1977 PNEUMOCOCCAL VACCINE 50+ YEARS (1 of 1 - PCV) 10/01/19 09 ZOSTER VACCINE (1 of 2) 2008 INFLUENZA VACCINE (#1) 2023 Abdominal Aortic Aneurysm (AAA) Screening 10/01/2023 [place] ([place] Prev entative Visit/Annual Wellness Visit 02/09/2024 RSV VACCINE (60+ or ) (1 - 1-dose 75+ series) 2033 Procedures Procedure Name Priority Date/Time Associated Diagnosis Comments XR ABDOMEN 1 VW Routine 05/16/2024 11:33 AM CDT from Last 3 Months Results * XR ABDOMEN 1 VW (05/16/2024 11:33 AM CDT) Anatomical Region Laterality Modality Abdomen Other us Peña Smith MD DIAGNOSTIC IMAGING ORDERABLES F inal Result from Last 3 Months Insurance
--- OUTSIDE RECORDS SUMMARY | 2024-05-18 16:44 | XMS_ITS | Encounter Summary ---
Author Organization [facility] DARIEN Cannon [facility] Address [address] [place] [address] Care Team Providers Care Gunstock Spray Unit Feeder Name Role Phone Unavailable Primary Care Provider Unavailabl e Encounter Details Date Type Department Care Team (Late Contact Info) Description 05/16/2024 Orders Only [facility] Oncology and Hematology [facility] [address] [place] [address] Peña Smith MD [address] [facility] [email or web address] [address] [place] [address] Social History Tobacco Use Types Packs/Day Years [...] on file documented as of this encounter Plan of Treatment Upcoming Encounters Date Type Department Care Team (Late Contact Info) Description 08/04/2024 8:30 AM CDT Office Visit [facility] Oncology and Hematology Jorge L [address] [place] [address] [place] [address] [place] [address] [email or web address] [address] [place] [address] documented as of this encounter Procedures Procedure Name Priority Date/Time Associated Diagnosis Comments XR ABDOMEN 1 VW Routine 05/16/2024 11:33 AM CDT documented in this encounter Results * XR ABDOMEN 1 VW (05/16/2024 11:33 AM CDT) Anatomical Region Laterality Modality Abdomen Other us Peña Smith MD DIAGNOSTIC IMAGING ORDERABLES F inal Result documented in this encounter Visit Diagnoses Not on filedocumented in this encounter
--- OUTSIDE RECORDS SUMMARY | 2024-05-18 16:44 | XMS_ITS | Encounter Summary ---
Author Organization [facility] [employer] Address [address] [place] [address] Care Team Providers Care Wire Straightener Name Role Phone Unavailable Primary Care Provider Unavailabl e Reason for Visit * Reason Onset Date Comments Abdominal Pain 05/17/2024 Encounter Details Date Type Department Care Team (Late st Contact Info) Description 05/17/2024 Telephone [facility] Oncology and Hematology - Jorge L [address] [facility] [address] [place] [address] Peña Smith MD [address] [facility] [address] [place] [address] Abdominal Pain Social History Tobacco [...] * Telephone Encounter - Chloe Marrufo - 05/17/2024 8:23 AM CDT Patient is aware of recommendations. He verbalized understanding with no further questions. He is going to work on getting a PCP. * Telephone Encounter - Chloe Marrufo - 05/17/2024 8:23 AM CDT ----- Message from Dr. Peña Smith sent at 05/16/2024 12:47 PM CDT ----- Regarding: RE: KUB Looks good. No further workup is needed. Follow-up as previously ordered. ----- Message ----- From: Chloe Marrufo Sent: 05/16/2024 11:34 AM CDT To: Peña Smith MD Subject: KUB Patient had KUB done. Can you review and please advise? documented in this encounter Plan of Treatment Upcoming Encounters Date Type Department Care Team (Late st Contact Info) Description 08/04/2024 8:30 AM CDT Office Visit [facility] Oncology and Hematology - Jorge L [address] [facility] [address] [place] [address] Peña Smith MD [address] [facility] [address] [place] [address] documented as of this encounter Visit Diagnoses Not on filedocumented in this encounter
[2024-05-18 17:29] VITALS: BP 143/73; PULSE 84; RESP 15; TEMP 36.6; O2SAT 98
--- NOTE | 2024-05-18 20:46 | PC.NURSE ---
Patient walked out of ED -upset about wait time nothing being done , gait steady
--- OUTSIDE RECORDS SUMMARY | 2024-05-18 20:50 | XMS_ITS | Clinical Summary ---
Author Organization [facility] Ginna jiang Charo Address [address] [place] [address] Care Team Providers Care Oil Well Logger Name Role Phone Unavailable Primary Care Provider Unavailabl e Allergies Active Allergy Reactions Criticality Noted Date Comments Penicillins Unknown 04/28/2023 Medications No known medications Active Problems No known active problems Encounters Date Type Department Care Team Description 05/17/2024 Telephone [facility] Oncology and Hematology - Jorge L [address] [place] [address] Peña Smith MD Abdominal Pain 05/16/2024 Orders Only [facility] Oncology and Hematology [facility] [address] [place] [address] Peña Smith MD 05/15/2024 Telephone [facility] Oncology and Hematology [facility] [address] [place] [address] Peña Smith MD Abdominal Pain 03/31/2024 8:45 AM HEALTH AND WELLNESS SALES CONSULTANT Office Visit [facility] Oncology and Hematology [facility] [address] [place] [address] Peña Smith MD Malignant neoplasm [...] Comments Blood Pressure 113/68 03/31/2024 8:43 AM HEALTH AND WELLNESS SALES CONSULTANT Pulse 85 03/31/2024 8:43 AM HEALTH AND WELLNESS SALES CONSULTANT Temperature 36.8 C (98.3 F) 03/31/2024 8:43 AM HEALTH AND WELLNESS SALES CONSULTANT Respiratory Rate 16 03/31/2024 8:43 AM HEALTH AND WELLNESS SALES CONSULTANT Oxygen Saturation 97% 03/31/2024 8:43 AM HEALTH AND WELLNESS SALES CONSULTANT Inhaled Oxygen Concentration - - Weight 63.2 kg (139 lb 6.4 oz) 03/31/2024 8:43 A M HEALTH AND WELLNESS SALES CONSULTANT Height 172.7 cm (5' 8 ) 04/28/2023 3:09 PM CDT Body Mass Index 21.2 04/28/2023 3:09 PM CDT Plan of Treatment Upcoming Encounters Date Type Department Care Team (Late st Contact Info) Description 08/04/2024 8:30 AM CDT Office Visit [facility] Oncology and Hematology - [place] [address] [place] [address] [facility] [address] [place] [address] Peña Smith MD [address] [facility] [address] [place] [address] Health Maintenance Due Date Last Done Comments DTAP/TDAP/TD VACCINES (1 - Tdap) 1977 PNEUMOCOCCAL VACCINE 50+ YEARS (1 of 1 - PCV) 10/01/19 09 ZOSTER VACCINE (1 of 2) 2008 INFLUENZA VACCINE (#1) 2023 Abdominal Aortic Aneurysm (AAA) Screening 10/01/2023 [place] ([place] Prev entative Visit/Annual Wellness Visit 02/09/2024 RSV [...]
--- OUTSIDE RECORDS SUMMARY | 2024-05-18 20:50 | XMS_ITS | Encounter Summary ---
Author Organization [facility] [employer]ARIEN [employer] Address [address] [place] [address] Care Team Providers Care Platform Architect Name Role Phone Unavailable Primary Care Provider Unavailabl e Reason for Visit * Reason Onset Date Comments Abdominal Pain 05/17/2024 Encounter Details Date Type Department Care Team (Late st Contact Info) Description 05/17/2024 Telephone [facility] Oncology and Hematology - Jorge L [address] [facility] [address] [place] [address] Peña Smith MD [address] [facility] [address] [place] [address] Abdominal Pain Social History Tobacco [...] Description 08/04/2024 8:30 AM CDT Office Visit [facility] Oncology and Hematology - Jorge L [address] [facility] [address] [place] [address] Peña Smith MD [address] [facility] [address] [place] [address] documented as of this encounter Visit Diagnoses Not on filedocumented in this encounter
--- OUTSIDE RECORDS SUMMARY | 2024-05-18 20:50 | XMS_ITS | Clinical Summary ---
Author Organization [facility] Address [address] [place] [address] Care Team Providers Care Baking Factory Worker Name Role Phone Unavailable Primary Care Provider [...] - 2023-2 5 season) 2023 PHQ-2 (Physician [place]) 02/09/2024 RSV Immunization or 60+ Years (1 [...] patient's age to complete this topic Insurance [facility] [place] [id number]
--- OUTSIDE RECORDS SUMMARY | 2024-05-18 20:50 | XMS_ITS | Encounter Summary ---
Author Organization [facility] DARIEN Cannon [facility] Address [address] [place] [address] Care Team Providers Care Food Service Representative Name Role Phone Unavailable Primary Care Provider Unavailabl e Encounter Details Date Type Department Care Team (Late Contact Info) Description 05/16/2024 Orders Only [facility] Oncology and Hematology [facility] [address] [place] [address] Peña Smith MD [address] [facility] [address] [place] [address] Social History Tobacco Use Types Packs/Day [...] Description 08/04/2024 8:30 AM CDT Office Visit [facility] Oncology and Hematology Jorge L [address] [place] [address] [place] [address] [place] [address] [address] [place] [address] documented as of this encounter Procedures [...]
== END 2024-05-18 20:46 | disposition left against medical advice (07) ==
DX: R10.31 Right lower quadrant pain (principal)
CPT/HCPCS: 99199

== ENCOUNTER 2024-05-19 10:00 | Emergency (ER) | payer MEDICARE, SELFPAY ==
[2024-05-19] VITALS (10 sets, daily range): BP systolic 106–130; BP diastolic 61–82; PULSE 68–83; RESP 16–20; TEMP 36.6–36.9; O2SAT 98–100
--- NOTE | ~2024-05-19 | CT_ITS ---
CT of the Abdomen and Pelvis: Indication: Abdominal pain Technique: 2.5 mm axial scans were obtained through the abdomen and pelvis following intravenous adm inistration of 100 cc of Omnipaque 350. Dose reduction technique was used on this scan by utilizing a utomated exposure control and iterative reconstruction technique. The dose-length product (DLP) was 2 07.04 mGy-cm. COMPARISON: 11/13/2023 Findings: Scans through the lung bases demonstrate focal right basilar atelectasis or scarring. The liver, spleen, pancreas, gallbladder, adrenals and kidneys are within normal limits. No evidence of aortic aneurysm. No lymphadenopathy. No bowel obstruction. Prior partial right colectomy. Questionable wall thickening of the distal sigmo id colon. Images through the pelvis were performed. Urinary bladder unremarkable. No pelvic mass seen. No ascit es. Impression: Questionable wall thickening distal sigmoid colon. Correlate for infectious/inflammatory colitis, les s likely neoplasm. Prior partial right colectomy. Reviewed, dictated and finalized at [facility]. Impression: Questionable wall thickening distal sigmoid colon. Correlate for infectious/inf lammatory colitis, less likely neoplasm. Prior partial right colectomy.
--- OUTSIDE RECORDS SUMMARY | 2024-05-19 10:33 | XMS_ITS | Clinical Summary ---
Author Organization [facility] Ginna jiang Charo Address [address] [place] [address] Care Team Providers Care Janitor Head Name Role Phone Unavailable Primary Care Provider Unavailabl e Allergies Active Allergy Reactions Criticality Noted Date Comments Penicillins Unknown 04/28/2023 Medications No known medications Active Problems No known active problems Encounters Date Type Department Care Team Description 05/17/2024 Telephone [facility] Oncology and Hematology - Jorge L [address] [place] [address] Peña Smith MD Abdominal Pain 05/16/2024 Orders Only [facility] Oncology and Hematology [facility] [address] [place] [address] Peña Smith MD 05/15/2024 Telephone [facility] Oncology and Hematology [facility] [address] [place] [address] Peña Smith MD Abdominal Pain 03/31/2024 8:45 AM DELIVERY AIDE Office Visit [facility] Oncology and Hematology [facility] [address] [place] [address] Peña Smith MD Malignant neoplasm [...] Comments Blood Pressure 113/68 03/31/2024 8:43 AM DELIVERY AIDE Pulse 85 03/31/2024 8:43 AM DELIVERY AIDE Temperature 36.8 C (98.3 F) 03/31/2024 8:43 AM DELIVERY AIDE Respiratory Rate 16 03/31/2024 8:43 AM DELIVERY AIDE Oxygen Saturation 97% 03/31/2024 8:43 AM DELIVERY AIDE Inhaled Oxygen Concentration - - Weight 63.2 kg (139 lb 6.4 oz) 03/31/2024 8:43 A M DELIVERY AIDE Height 172.7 cm (5' 8 ) 04/28/2023 3:09 PM CDT Body Mass Index 21.2 04/28/2023 3:09 PM CDT Plan of Treatment Upcoming Encounters Date Type Department Care Team (Late st Contact Info) Description 08/04/2024 8:30 AM CDT Office Visit [facility] Oncology and Hematology - [place] [address] [place] [address] [facility] [address] [place] [address] Peña Smith MD [address] [facility] [address] [place] [address] Health Maintenance Due Date Last Done Comments DTAP/TDAP/TD VACCINES (1 - Tdap) 1977 PNEUMOCOCCAL VACCINE 50+ YEARS (1 of 1 - PCV) 10/01/19 09 ZOSTER VACCINE (1 of 2) 2008 INFLUENZA VACCINE (#1) 2023 Abdominal Aortic Aneurysm (AAA) Screening 10/01/2023 [place] Prev entative Visit/Annual Wellness Visit 02/09/2024 RSV [...]
--- OUTSIDE RECORDS SUMMARY | 2024-05-19 10:33 | XMS_ITS | Encounter Summary ---
Author Organization [facility] DARIEN Cannon [facility] Address [address] [place] [address] Care Team Providers Care Shipper And Receiving Name Role Phone Unavailable Primary Care Provider Unavailabl e Encounter Details Date Type Department Care Team (Late Contact Info) Description 05/16/2024 Orders Only [facility] Oncology and Hematology [facility] [address] [place] [address] Peña Smith MD [address] [facility] [employer] [address] [place] [address] Social History Tobacco Use Types Packs/Day [...] Description 08/04/2024 8:30 AM CDT Office Visit [facility] Oncology and Hematology Jorge L [address] [place] [address] [place] [address] [place] [address] [employer] [address] [place] [address] documented as of this encounter Procedures [...]
--- OUTSIDE RECORDS SUMMARY | 2024-05-19 10:33 | XMS_ITS | Clinical Summary ---
Author Organization [facility] Address [address] [place] [address] Care Team Providers Care Machine Engineer Name Role Phone Unavailable Primary Care Provider [...] - 2023-2 5 season) 2023 PHQ-2 (Physician [place]) 02/09/2024 RSV Immunization or 60+ Years (1 [...] patient's age to complete this topic Insurance [facility] [place] [id number]
--- NOTE | 2024-05-19 11:21 | ECG_ITS ---
Test Date: 2024-05-19 11:32:21 Measurements Intervals [place] Rate: 68 P: 71 WV: 168 QRS: -21 QRSD: 84 T: 57 QT: 379 QTc: 404 Interpretive Statements SINUS RHYTHM BASELINE WANDER- V4-V6 NORMAL ECG No previous ECG available for comparison Electronically Signed On 05-19-2024 11:35:38 CDT by Boni Jeff D.O.
--- NOTE | 2024-05-19 11:22 | ED_ITS ---
HPI - Abdominal Pain General Chief Complaint: Abdominal Pain Stated Complaint: abd pain Time Seen by Provider: 05/19/24 10:59 History of Present Illness HPI narrative: Patient is 63-year-old male who presents to the ER with complaints of right lower quadrant pain. He reports he has a history of stage II colon cancer and bleeding ulcer that was diagnosed in February of 2023. Patient reports he has been experiencing dull aches in different parts of his abdomen throughout the past 2 months but over the past 2 days it has been significant in his right lower quadrant. He denies any urinary symptoms, recent fevers, GERD symptoms. Patient reports his last bowel movement was this morning it was normal for him. He reports the pain increases throughout the day. Patient denies any other medical history relevant to this ER visit. 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, stage II A Perforated gastric ulcer (~01/2023) Colon polyps Neoplasm of ascending colon Osteoarthritis Anemia History of tobacco abuse Marijuana abuse, continuous used for pain control r/t arthritis Surgical History Surgical History History of tonsillectomy History of abdominal surgery (~01/22/23) Extended right hemicolectomy with ileo transverse hand-sewn anastomosis, drainage of multiple right upper quadrant and perigastric abscesses, repair gastric antral perforation, omentoplasty H/O hemicolectomy (~01/22/23) Hepatic abscess (~01/2023) s/p percutaneus drainage Family History Family History Father Acute myocardial infarction, Onset Age: 58 Cancer, Onset Age: 58 unclear primary source, was metastatic at time of diagnosis and was shortly after discovered Hypertension Sibling Cancer brother, not close with family. unknown type. Hypertension Sibling Cancer brother, colon cancer. Grandparent Hypertension Cerebrovascular accident maternal gradfather Grandparent Hypertension Cerebrovascular accident maternal grandma Sibling Chronic obstructive pulmonary disease sister Sibling Chronic obstructive pulmonary disease sister Grandparent Hypertension paternal grandma Grandparent Hypertension paternal grandpa Social History Social History Social History: Currently lives in [place] in [place]. Lives alone with dogs. . Elects family friend, Jamie Sands, as surrogate decision maker. Code Status: Full Code, requesting no prolonged ventilation or permanent G-tube. Okay with temporary NG/OG. Smoking packs per day: 3 Smoking cigarettes per day: 60.0 Years smoked: 45 Smoking pack-years: 135.00 Smoking status: Former smoker Tobacco type: cigarettes Second hand tobacco smoke exposure: No Alcohol intake: never Substance use: current Substance use type: marijuana Other substance usage details: SMOKES MARIJUANA Last use: 02/17/23 Do You Feel Safe in your Home?: Yes Lack of Transportation: No Lack of Food: Never True Current Housing: I Have Housing Concerned About Future Housing: No Difficulty Paying Gas/Electric Bills: No Difficulty Paying for Meds: No Currently Unemployed: No Education: High School Diploma/GED Difficulty w/ Childcare or Family Care: No Living arrangements: alone Additional living arrangements comments: PT LIVES IN HIS CAMPER AT [facility], USES FRIEND JAMIE'S ADDRESS Occupation/Education: retired Gender identity (if verbalized by the patient): Male Sexual Orientation (if Verbalized by the Patient): Straight or Heterosexual Spiritual care concerns: No Exam 2 Narrative: GENERAL: Well appearing, well-nourished, non-toxic, in no acute distress. HEAD: Normocephalic, atraumatic. NECK: Supple. No adenopathy, no masses. RESPIRATORY: Airway patent, respirations nonlabored. Clear to auscultation bilaterally, no rales, rhonchi, wheezing. CARDIOVASCULAR: Regular rate and rhythm without murmurs, rubs, or gallops. Peripheral pulses 2+ and equal bilaterally. ABDOMINAL: Soft, + tenderness with palpation RLQ, nondistended, no hepatosplenomegaly. Normoactive BS. Negative Fairchild's sign MUSCULOSKELETAL: Moves all extremities. Strength/ROM intact without gross deformities. SKIN: Warm, dry, normal color. No rashes. NEURO: A&O X3. Speech clear. Cranial nerves II-XII intact. No ataxic movements. PSYCHIATRIC: Appropriate mood and affect. Normal interaction. Course Vital Signs Vital signs: Vital Signs Temperature 36.6 C 05/19/24 10:10 Pulse Rate 83 05/19/24 10:10 Respiratory Rate 16 05/19/24 10:10 Blood Pressure 108/61 05/19/24 10:10 Pulse Oximetry 99 05/19/24 10:10 Oxygen Delivery Room Air 05/19/24 10:10 Temperature 36.6 C 05/19/24 10:10 Pulse Rate 68 05/19/24 11:30 Respiratory Rate 20 05/19/24 11:30 Blood Pressure 130/75 05/19/24 11:30 Pulse Oximetry 98 05/19/24 11:30 Oxygen Delivery Room Air 05/19/24 10:10 MDM - Abdominal Pain MDM Narrative Medical decision making narrative: Patient is 63-year-old male who presents to the ER with complaints of right lower quadrant pain. He reports he has a history of stage II colon cancer and bleeding ulcer that was diagnosed in February of 2023. Patient reports he has been experiencing dull aches in different parts of his abdomen throughout the past 2 months but over the past 2 days it has been significant in his right lower quadrant. He denies any urinary symptoms, recent fevers, GERD symptoms. Patient reports his last bowel movement was this morning it was normal for him. He reports the pain increases throughout the day. Patient denies any other medical history relevant to this ER visit. Labs Ordered: CBC, CMP, lactic, troponin, lipase, PTT, INR, UA Imaging Ordered: Medications Ordered: Results: Diagnosis: Risks: HEART score, PECARN score Consults: Patient Education/Shared MDM: Results shared with patient. She endorses improvement following medication administration. Patient strongly advised to maintain hydration status upon discharge and follow-up with her PCP as soon as possible. She will be discharged home with a prescription for . Strict return precautions provided. Patient verbalized understanding is in agreement with plan. Vital signs stable at time of discharge. All questions answered. Differential Diagnosis Differential diagnosis: Likely abdominal pain, acute appendicitis, calculus of kidney, constipation, diverticulitis, gastroenteritis, pancreatitis and small bowel obstruction Lab Data 05/19/24 11:30 05/19/24 11:30 Labs: Lab Results 05/19/24 05/19/24 Range/Units 11:30 11:44 WBC 8.5 (4.5-10.0) K/mm3 RBC 4.01 L (4.6-6.20) M/mm3 Hgb 12.1 L (14.0-18.0) g/dL Hct 38.1 L (42.0-52.0) % MCV 95.0 (80-100) fl MCH 30.2 (26-34) pg MCHC 31.8 L (32-36) g/dl RDW 13.5 (11.5-14.5) % Plt Count 239 (150-375) k/mm3 MPV 10.2 (7.4-10.4) fl Immature Gran % (Auto) 0.4 (0-0.5) % Neut % (Auto) 71.3 (45.5-73.1) % Lymph % (Auto) 18.8 (18.3-44.2) % [place] % (Auto) 8.7 H (2.6-8.5) % Eos % (Auto) 0.6 (0-4.4) % Baso % (Auto) 0.2 (0.2-1.2) % Lymph # (Auto) 1.60 (0.9-3.2) K/mm3 [place] # (Auto) 0.7 H (0.1-0.6) K/mm3 Eos # (Auto) 0.1 (0-0.3) K/mm3 Baso # (Auto) 0.0 (0.0-0.1) K/mm3 Abs Immat Gran (auto) 0.03 (0.00-0.031) K/mm3 Absolute Neuts (auto) 6.1 (1.3-6.7) K/mm3 Absolute Nucleated RBC 0.000 (0.0-0.012) K/mm3 Nucleated RBC % 0.0 (0.0-0.2) % PT 12.7 (11.1-14.7) Seconds INR 0.9 APTT 25.2 (22.3-36.8) Seconds Sodium 140 (137-145) mmol/L Potassium 4.3 (3.4-5.0) mmol/L Chloride 104 (98-107) mmol/L Carbon Dioxide 26 (22-30) mmol/L Anion Gap 10 (4-12) mmol/L BUN 17 (9-20) mg/dL Creatinine 0.88 (0.7-1.3) mg/dL Estim Creat Clear Calc 60 ml/min Estimated GFR > 60 (59 - ) Glucose 105 (65-110) mg/dL Lactic Acid 0.7 (0.7-2.0) mmol/L Calcium 9.3 (8.4-10.2) mg/dL Total Bilirubin 0.3 (0.2-1.3) mg/dL AST 21 (17-59) U/L ALT 16 (6-50) U/L Alkaline Phosphatase 78 (38-126) U/L Troponin I < 0.012 (0.000-0.034) ng/mL Total Protein 7.0 (6.3-8.2) g/dL Albumin 4.2 (3.5-5.1) g/dL Lipase 79 (23-300) U/L Urine Color Yellow (Yellow) Urine Appearance Clear (Clear) Urine pH 6.5 (5.0-9.0) Ur Specific [place] 1.023 (1.001-1.035) Urine Protein Negative (Negative) mg/dL Urine Glucose (UA) Negative (Negative) mg/dL Urine Ketones Trace H (Negative) mg/dL Ur Blood (Man) Negative (Negative) Urine Nitrate Negative (Negative) Urine Bilirubin Negative (Negative) Urine Urobilinogen 0.2 (<2.0) mg/dL Leukocyte Esterase Rfl Negative (Negative) DON/UL Imaging Data Radiologist's impression: ITS Impressions Abdomen/Pelvis CT 05/19/24 13:04 Impression: Questionable wall thickening distal sigmoid colon. Correlate for infectious/inflammatory colitis, less likely neoplasm. Prior partial right colectomy. Discharge Plan Discharge Clinical Impression: Colitis, Abdominal pain Patient Disposition: Home Condition: Stable Instructions: Antibiotic Form, Abdominal Pain (ED), Colitis (ED) Additional Instructions: Please return to the ER with any worsening symptoms. Follow-up with primary care provider as soon as possible. Take all medications as prescribed, including regularly scheduled medications. Complete your full dose of antibiotics please. Patient Language: Georgian Prescriptions: New ciprofloxacin HCl [Cipro] 500 mg tablet 500 mg PO Q12H Qty: 10 0RF dicyclomine 10 mg capsule 10 mg PO TID Qty: 12 0RF No Action aspirin 81 mg Tablet 81 mg PO DAILY Follow-up/Referrals: Giovanni Bui MD [Physician] - (general surgery) UNKNOWN,DOCTOR [Primary Care Provider] - Time of Disposition: 13:44
[2024-05-19] MEDS: SODIUM CHLORIDE 0.9% IV 1,000 ML 999 ML IV CONT (11:27)
[2024-05-19 11:36] LABS: Basophils Percent Auto 0.2 % (0.2-1.2); Eosinophils Absolute Auto 0.1 K/mm3 (0-0.3); Eosinophils Percent Auto 0.6 % (0-4.4); Hematocrit 38.1 % (42.0-52.0); Hemoglobin 12.1 g/dL (14.0-18.0); Immature Granulocyte Absolute 0.03 K/mm3 (0.00-0.031); Immature Granulocyte Percent A 0.4 % (0-0.5); Lymphocytes Percent Auto 18.8 % (18.3-44.2); Mean Corpuscular HGB Conc 31.8 g/dl (32-36); Mean Corpuscular Hemoglobin 30.2 pg (26-34); Mean Platelet Volume 10.2 fl (7.4-10.4); Monocytes Absolute Auto 0.7 K/mm3 (0.1-0.6); Monocytes Percent Auto 8.7 % (2.6-8.5); Neutrophils Absolute Auto 6.1 K/mm3 (1.3-6.7); Neutrophils Percent Auto 71.3 % (45.5-73.1); Platelet Count Result 239 k/mm3 (150-375); Red Blood Count 4.01 M/mm3 (4.6-6.20); Red Cell Distribution Width 13.5 % (11.5-14.5); White Blood Count 8.5 K/mm3 (4.5-10.0)
--- OUTSIDE RECORDS SUMMARY | 2024-05-19 11:38 | XMS_ITS | Encounter Summary ---
Author Organization [facility] [address] [facility] Address [address] [place] [address] Care Team Providers Care Crime Lab Analyst Name Role Phone Unavailable Primary Care Provider Unavailabl e Encounter Details Date Type Department Care Team (Late Contact Info) Description 05/16/2024 Orders Only [facility] Oncology and Hematology [facility] [address] [place] [address] Peña Smith MD [address] [facility] [address] [place] [phone] Social History Tobacco Use Types Packs/Day [...] Hematology Jorge L [address] [place] [address] [place] [address] [place] [address] [facility] [address] [place] [phone] documented as of this encounter Procedures [...]
--- OUTSIDE RECORDS SUMMARY | 2024-05-19 11:38 | XMS_ITS | Clinical Summary ---
Author Organization [facility] Ginna jiang Charo Address [address] [place] [address] Care Team Providers Care Air Operations Manager Name Role Phone Unavailable Primary Care Provider Unavailabl e Allergies Active Allergy Reactions Criticality Noted Date Comments Penicillins Unknown 04/28/2023 Medications No known medications Active Problems No known active problems Encounters Date Type Department Care Team Description 05/17/2024 Telephone [facility] Oncology and Hematology - Jorge L [address] [place] [phone] Peña Smith MD Abdominal Pain 05/16/2024 Orders Only [facility] Oncology and Hematology [facility] [address] [place] [address] Peña Smith MD 05/15/2024 Telephone [facility] Oncology and Hematology [facility] [address] [place] [address] Peña Smith MD Abdominal Pain 03/31/2024 8:45 AM DIRECTOR DIGITAL STRATEGY Office Visit [facility] Oncology and Hematology [facility] [address] [place] [address] Peña Smith MD Malignant neoplasm [...] Comments Blood Pressure 113/68 03/31/2024 8:43 AM DIRECTOR DIGITAL STRATEGY Pulse 85 03/31/2024 8:43 AM DIRECTOR DIGITAL STRATEGY Temperature 36.8 C (98.3 F) 03/31/2024 8:43 AM DIRECTOR DIGITAL STRATEGY Respiratory Rate 16 03/31/2024 8:43 AM DIRECTOR DIGITAL STRATEGY Oxygen Saturation 97% 03/31/2024 8:43 AM DIRECTOR DIGITAL STRATEGY Inhaled Oxygen Concentration - - Weight 63.2 kg (139 lb 6.4 oz) 03/31/2024 8:43 A M DIRECTOR DIGITAL STRATEGY Height 172.7 cm (5' 8 ) 04/28/2023 3:09 PM CDT Body Mass Index 21.2 04/28/2023 3:09 PM CDT Plan of Treatment Upcoming Encounters Date Type Department Care Team (Late st Contact Info) Description 08/04/2024 8:30 AM CDT Office Visit [facility] Oncology and Hematology - [place] [address] [place] [address] [facility] [address] [place] [address] Peña Smith MD [address] [facility] [address] [place] [address] Health Maintenance Due Date Last Done Comments DTAP/TDAP/TD VACCINES (1 - Tdap) 1977 PNEUMOCOCCAL VACCINE 50+ YEARS (1 of 1 - PCV) 10/01/19 09 ZOSTER VACCINE (1 of 2) 2008 INFLUENZA VACCINE (#1) 2023 Abdominal Aortic Aneurysm (AAA) Screening 10/01/2023 Medicare Advantage ([place]) Prev entative Visit/Annual Wellness Visit 02/09/2024 RSV [...]
--- OUTSIDE RECORDS SUMMARY | 2024-05-19 11:38 | XMS_ITS | Clinical Summary ---
Author Organization [facility] Address [address] [place] [id number] Care Team Providers Care Predictive Maintenance Specialist Name Role Phone Unavailable Primary Care Provider [...] - 2023-2 5 season) 2023 PHQ-2 (Physician [place]) 02/09/2024 RSV Immunization or 60+ Years (1 [...] patient's age to complete this topic Insurance [facility] [place] [id number]
[2024-05-19 11:49] LABS: Add Urine Microscopic? NO; Appearance Urine Clear (Clear); Bilirubin Urine Negative (Negative); Blood Urine Negative (Negative); Color Urine Yellow (Yellow); Glucose Urine UA Negative (Negative); Ketones Urine Trace mg/dL (Negative); Leukocyte Esterase Ur Negative LEU/UL (Negative); Nitrate Urine Negative (Negative); Protein Urine Negative (Negative); Specific Grav Ur 1.023 (1.001-1.035); Urobilinogen Urine 0.2 mg/dL (<2.0); pH Urine 6.5 (5.0-9.0)
[2024-05-19 11:49] LABS: Alanine Aminotransferase 16 U/L (6-50); Albumin Level 4.2 g/dL (3.5-5.1); Alkaline Phosphatase 78 U/L (38-126); Anion Gap 10 mmol/L (4-12); Aspartate Amino Transferase 21 U/L (17-59); Bilirubin,Total 0.3 mg/dL (0.2-1.3); Blood Urea Nitrogen 17 mg/dL (9-20); Calcium 9.3 mg/dL (8.4-10.2); Carbon Dioxide 26 mmol/L (22-30); Chloride 104 mmol/L (98-107); Estimated CRCL calculation 60 ml/min; Estimated Glomerular Filt Rate > 60; Glucose 105 mg/dL (65-110); Lipase 79 U/L (23-300); Potassium 4.3 mmol/L (3.4-5.0); Sodium 140 mmol/L (137-145)
[2024-05-19 11:50] LABS: Lactic Acid Reflex 0.7 mmol/L (0.7-2.0)
[2024-05-19 11:54] LABS: INR 0.9; Prothrombin Time 12.7 Seconds (11.1-14.7)
[2024-05-19 11:55] LABS: Partial Thromboplastin Time 25.2 Seconds (22.3-36.8)
[2024-05-19 12:01] LABS: Troponin I < 0.012 ng/mL (0.000-0.034)
[2024-05-19] MEDS: CIPROFLOXACIN 500 MG TAB PO (14:00)
== END 2024-05-19 14:07 | disposition home or self-care (01) ==
PROVIDERS: Emergency Provider Registered Nurse
DX: K52.9 Noninfective gastroenteritis and colitis, unspecified (principal); C18.9 Malignant neoplasm of colon, unspecified; M19.90 Unspecified osteoarthritis, unspecified site; Z90.49 Acquired absence of other specified parts of digestive tract; Z87.891 Personal history of nicotine dependence
CPT/HCPCS: 36415; 74177; 80053; 81003; 83605; 83690; 84484; 85025; 85610; 85730; 93005; 96360; 99284; A9270; J7030; Q9967

== ENCOUNTER 2024-06-05 11:48 | Emergency (ER) | payer MEDICARE, SELFPAY ==
[2024-06-05 12:06] VITALS: BP 115/67; PULSE 109; RESP 20; TEMP 37; O2SAT 98
--- NOTE | 2024-06-05 13:32 | ED_ITS ---
HPI - Abdominal Pain General Chief Complaint: Abdominal Pain Stated Complaint: N/V/D x 3 days Time Seen by Provider: 06/05/24 13:32 Focused HPI: This is a 63 year old male that presents to the ER for right sided lower abdominal pain. Reports he was recently diagnosed with colitis. He has finished the antibiotics without relief. Reports continued vomiting, diarrhea. Denies fevers. GENERAL: Well-appearing, well-nourished, and in no acute distress. HEAD: Normocephalic, atraumatic. CHEST: Clear to auscultation. ?No respiratory distress. HEART: Regular rate and rhythm.? NEURO: ?Alert and oriented x3. Patient screened in triage and initial orders placed.? ?Additional care and disposition to be based upon?diagnostic testing and treatment. 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, stage II A Perforated gastric ulcer (~01/2023) Colon polyps Neoplasm of ascending colon Osteoarthritis Anemia History of tobacco abuse Marijuana abuse, continuous used for pain control r/t arthritis Surgical History Surgical History History of tonsillectomy History of abdominal surgery (~01/22/23) Extended right hemicolectomy with ileo transverse hand-sewn anastomosis, drainage of multiple right upper quadrant and perigastric abscesses, repair gastric antral perforation, omentoplasty H/O hemicolectomy (~01/22/23) Hepatic abscess (~01/2023) s/p percutaneus drainage Family History Family History Father Acute myocardial infarction, Onset Age: 58 Cancer, Onset Age: 58 unclear primary source, was metastatic at time of diagnosis and was shortly after discovered Hypertension Sibling Cancer brother, not close with family. unknown type. Hypertension Sibling Cancer brother, colon cancer. Grandparent Hypertension Cerebrovascular accident maternal gradfather Grandparent Hypertension Cerebrovascular accident maternal grandma Sibling Chronic obstructive pulmonary disease sister Sibling Chronic obstructive pulmonary disease sister Grandparent Hypertension paternal grandma Grandparent Hypertension paternal grandpa Social History Social History Social History: Currently lives in [place] in [place]. Lives alone with dogs. . Elects family friend, Jamie Sands, as surrogate decision maker. Code Status: Full Code, requesting no prolonged ventilation or permanent G-tube. Okay with temporary NG/OG. Smoking packs per day: 3 Smoking cigarettes per day: 60.0 Years smoked: 45 Smoking pack-years: 135.00 Smoking status: Former smoker Tobacco type: cigarettes Second hand tobacco smoke exposure: No Alcohol intake: never Substance use: current Substance use type: marijuana Other substance usage details: SMOKES MARIJUANA Last use: 02/17/23 Do You Feel Safe in your Home?: Yes Lack of Transportation: No Lack of Food: Never True Current Housing: I Have Housing Concerned About Future Housing: No Difficulty Paying Gas/Electric Bills: No Difficulty Paying for Meds: No Currently Unemployed: No Education: High School Diploma/GED Difficulty w/ Childcare or Family Care: No Living arrangements: alone Additional living arrangements comments: PT LIVES IN HIS [place] AT [facility], USES FRIEND JAMIE'S ADDRESS Occupation/Education: retired Gender identity (if verbalized by the patient): Male Sexual Orientation (if Verbalized by the Patient): Straight or Heterosexual Spiritual care concerns: No Course Vital Signs Vital signs: Vital Signs Temperature 98.6 F 06/05/24 12:06 Pulse Rate 109 H 06/05/24 12:06 Respiratory Rate 20 06/05/24 12:06 Blood Pressure 115/67 06/05/24 12:06 Pulse Oximetry 98 06/05/24 12:06 Oxygen Delivery Room Air 06/05/24 12:06 Temperature 98.6 F 06/05/24 12:06 Pulse Rate 109 H 06/05/24 12:06 Respiratory Rate 20 06/05/24 12:06 Blood Pressure 115/67 06/05/24 12:06 Pulse Oximetry 98 06/05/24 12:06 Oxygen Delivery Room Air 06/05/24 12:06 MDM - Abdominal Pain MDM Narrative Medical decision making narrative: Patient left after medical screening exam and before any further evaluation or management Discharge Plan Discharge Clinical Impression: Abdominal pain Qualifiers: Abdominal location: right lower quadrant Qualified Code(s): R10.31 - Right lower quadrant pain Patient Disposition: Elopement After Seen by Prov Instructions: Antibiotic Form Patient Language: Divehi Prescriptions: No Action aspirin 81 mg Tablet 81 mg PO DAILY ciprofloxacin HCl [Cipro] 500 mg tablet 500 mg PO Q12H Qty: 10 0RF dicyclomine 10 mg capsule 10 mg PO TID Qty: 12 0RF Follow-up/Referrals: UNKNOWN,DOCTOR [Primary Care Provider] -
--- OUTSIDE RECORDS SUMMARY | 2024-06-05 13:44 | XMS_ITS | Clinical Summary ---
Author Organization [facility] Address [address] [place] [address] Care Team Providers Care Bean Viner Name Role Phone Unavailable Primary Care Provider [...] Td Vaccines ( 1 - Tdap) 1977 Pneumococcal Vaccine: 50+ Ye ars (1 of 1 - PCV) 2008 Zoster Vaccines (1 of 2) 2008 COVID-19 Vaccine ( - 2023-2 5 season) 2023 PHQ-2 (Physician [place]) 02/09/2024 RSV Immunization or 60+ Years (1 [...] patient's age to complete this topic Insurance [facility] [place] [id number]
--- OUTSIDE RECORDS SUMMARY | 2024-06-05 13:44 | XMS_ITS | Clinical Summary ---
Author Organization [facility] Ginna jiang Charo Address [address] [place] [address] Care Team Providers Care Individual Pension Consultant Name Role Phone Unavailable Primary Care Provider Unavailabl e Allergies Active Allergy Reactions Criticality Noted Date Comments Penicillins Unknown 04/28/2023 Medications No known medications Active Problems No known active problems Encounters Date Type Department Care Team Description 05/17/2024 Telephone [facility] Oncology and Hematology - Jorge L [address] [place] [phone] Peña Smith MD Abdominal Pain 05/16/2024 Orders Only [facility] Oncology and Hematology [facility] [address] [place] [address] Peña Smith MD 05/15/2024 Telephone [facility] Oncology and Hematology [facility] [address] [place] [address] Peña Smith MD Abdominal Pain 03/31/2024 8:45 AM CHUCKING MACHINE SET UP OPERATOR TOOL Office Visit [facility] Oncology and Hematology [facility] [address] [place] [address] Peña Smith MD Malignant neoplasm [...] Comments Blood Pressure 113/68 03/31/2024 8:43 AM CHUCKING MACHINE SET UP OPERATOR TOOL Pulse 85 03/31/2024 8:43 AM CHUCKING MACHINE SET UP OPERATOR TOOL Temperature 36.8 C (98.3 F) 03/31/2024 8:43 AM CHUCKING MACHINE SET UP OPERATOR TOOL Respiratory Rate 16 03/31/2024 8:43 AM CHUCKING MACHINE SET UP OPERATOR TOOL Oxygen Saturation 97% 03/31/2024 8:43 AM CHUCKING MACHINE SET UP OPERATOR TOOL Inhaled Oxygen Concentration - - Weight 63.2 kg (139 lb 6.4 oz) 03/31/2024 8:43 A M CHUCKING MACHINE SET UP OPERATOR TOOL Height 172.7 cm (5' 8 ) 04/28/2023 3:09 PM CDT Body Mass Index 21.2 04/28/2023 3:09 PM CDT Plan of Treatment Upcoming Encounters Date Type Department Care Team (Late st Contact Info) Description 08/04/2024 8:30 AM CDT Office Visit [facility] Oncology and Hematology - [place] [address] [place] [address] [facility] [address] [place] [address] Peña Smith MD [address] [facility] [address] [place] [address] Health Maintenance Due Date Last Done Comments DTAP/TDAP/TD VACCINES (1 - Tdap) 1977 PNEUMOCOCCAL VACCINE 50+ YEARS (1 of 1 - PCV) 10/01/19 09 ZOSTER VACCINE (1 of 2) 2008 INFLUENZA VACCINE (#1) 2023 Abdominal Aortic Aneurysm (AAA) Screening 10/01/2023 RSV VACCINE (60+ or ) (1 - 1-dose 75+ series) 2033 Procedures Procedure Name Priority Date/Time Associated Diagnosis Comments XR ABDOMEN 1 VW Routine 05/16/2024 11:33 AM CDT from Last 3 Months Results * XR ABDOMEN 1 VW (05/16/2024 11:33 AM CDT) Anatomical Region Laterality Modality Abdomen Other Peña Smith MD DIAGNOSTIC IMAGING ORDERABLES F inal Result from Last 3 Months Insurance [facility] [id number]
--- NOTE | 2024-06-05 14:47 | PC.NURSE ---
Called for MSE x 2, no response.
--- NOTE | 2024-06-05 15:21 | PC.NURSE ---
Pt did not answer for VS.
--- NOTE | 2024-06-05 15:52 | PC.NURSE ---
Pt did not answer for VS x 2. Pt did not notify child watch attendant of declining to be seen and was not seen exiting the ED.
--- OUTSIDE RECORDS SUMMARY | 2024-06-05 17:56 | XMS_ITS | Clinical Summary ---
Author Organization [facility] Ginna jiang Charo Address [address] [place] [address] Care Team Providers Care Byproducts Maker Name Role Phone Unavailable Primary Care Provider Unavailabl e Allergies Active Allergy Reactions Criticality Noted Date Comments Penicillins Unknown 04/28/2023 Medications No known medications Active Problems No known active problems Encounters Date Type Department Care Team Description 05/17/[address] [facility] Oncology and Hematology - [place] [address] [place] [id number] Peña Smith MD Abdominal Pain 05/16/[address] [facility] Oncology and Hematology [facility] [address] [place] [address] Peña Smith MD 05/15/[address] [facility] Oncology and Hematology [facility] [address] [place] [address] Peña Smith MD Abdominal Pain 03/31/2024 8:45 AM MACHINE TESTER Office Visit [facility] Oncology and Hematology [facility] [address] [place] [address] Peña Smith MD Malignant neoplasm [...] Comments Blood Pressure 113/68 03/31/2024 8:43 AM MACHINE TESTER Pulse 85 03/31/2024 8:43 AM MACHINE TESTER Temperature 36.8 C (98.3 F) 03/31/2024 8:43 AM MACHINE TESTER Respiratory Rate 16 03/31/2024 8:43 AM MACHINE TESTER Oxygen Saturation 97% 03/31/2024 8:43 AM MACHINE TESTER Inhaled Oxygen Concentration - - Weight 63.2 kg (139 lb 6.4 oz) 03/31/2024 8:43 A M MACHINE TESTER Height 172.7 cm (5' 8 ) 04/28/2023 3:09 PM CDT Body Mass Index 21.2 04/28/2023 3:09 PM CDT Plan of Treatment Upcoming Encounters Date Type Department Care Team (Late st Contact Info) Description 08/04/2024 8:30 AM CDT Office Visit [facility] Oncology and Hematology - [place] [address] [place] [address] [facility] [address] [place] [address] Peña Smith MD [address] [facility] [address] [place] [address] Health Maintenance Due Date Last [...] inal Result from Last 3 Months Insurance [facility] [id number]
--- OUTSIDE RECORDS SUMMARY | 2024-06-05 17:56 | XMS_ITS | Clinical Summary ---
Author Organization [facility] Address [address] [place] [id number] Care Team Providers Care Potline Monitor Name Role Phone Unavailable Primary Care Provider [...] - 2023-2 5 season) 2023 PHQ-2 (Physician [place]) 02/09/2024 RSV Immunization or 60+ Years (1 [...] to complete this topic Insurance [facility] [place] [id number]
== END 2024-06-05 16:30 | disposition left against medical advice (07) ==
LOC: ANHED 15:55
PROVIDERS: Emergency Provider Physician Assistant
DX: R10.31 Right lower quadrant pain (principal); M19.90 Unspecified osteoarthritis, unspecified site; Z85.038 Personal history of other malignant neoplasm of large intestine; Z86.2 Personal history of diseases of the blood and blood-forming organs and certain disorders involving the immune mechanism; Z87.891 Personal history of nicotine dependence; Z90.49 Acquired absence of other specified parts of digestive tract; Z79.82 Long term (current) use of aspirin
CPT/HCPCS: 99281

== ENCOUNTER 2024-06-29 15:54 | Outpatient (CLI) | payer MEDICARE, SELFPAY ==
--- OUTSIDE RECORDS SUMMARY | 2024-06-29 15:58 | XMS_ITS | Clinical Summary ---
Author Organization [facility] Ginna jiang Charo Address [address] [place] [address] Care Team Providers Care Legal Writing Professor Name Role Phone Unavailable Primary Care Provider Unavailabl e Allergies Active Allergy Reactions Criticality Noted Date Comments Penicillins Unknown 04/28/2023 Medications ciprofloxacin HCl (Cipro) 500 mg tablet Take 1 Tablet (500 mg) by mouth 2 times daily for 10 days. 20 Tablet 06/12/2024 Active Problems No known active problems Encounters Date Type Department Care Team Description 06/27/2024 Telephone [facility] Oncology and Hematology - Jorge L [address] [place] [phone] Peña Smith MD abdominal pain follow up 06/27/2024 Orders Only [facility] Oncology and Hematology - Jorge L [address] [place] [address] Peña Smith MD Generalized abdominal pain (Primary Dx) 06/27/2024 Telephone [facility] Oncology and Hematology - Jorge L [address] [place] [address] Peña Smith MD Abdominal Pain 06/12/2024 Orders Only [facility] Oncology and Hematology - [place] L [address] [place] [address] Peña Smith MD 05/17/2024 Telephone [facility] Oncology and Hematology - [place] [address] [place] [address] Peña mSith MD Abdominal Pain 05/16/2024 Orders Only [facility] Oncology and Hematology - [place] [address] [place] [address] Peña Smith MD 05/15/2024 Telephone [facility] Oncology and Hematology [facility] [address] [place] [address] Peña Smith MD Abdominal Pain from Last 3 Months Family History Medical [...] Comments Blood Pressure 113/68 03/31/2024 8:43 AM RADIOACTIVITY TECHNICIAN Pulse 85 03/31/2024 8:43 AM RADIOACTIVITY TECHNICIAN Temperature 36.8 C (98.3 F) 03/31/2024 8:43 AM RADIOACTIVITY TECHNICIAN Respiratory Rate 16 03/31/2024 8:43 AM RADIOACTIVITY TECHNICIAN Oxygen Saturation 97% 03/31/2024 8:43 AM RADIOACTIVITY TECHNICIAN Inhaled Oxygen Concentration - - Weight 63.2 kg (139 lb 6.4 oz) 03/31/2024 8:43 A M RADIOACTIVITY TECHNICIAN Height 172.7 cm (5' 8 ) 04/28/2023 3:09 PM CDT Body Mass Index 21.2 04/28/2023 3:09 PM CDT Plan of Treatment Upcoming Encounters Date Type Department Care Team (Late st Contact Info) Description 08/04/2024 8:30 AM CDT Office Visit [facility] Oncology and Hematology - [place] L [address] [place] [address] Peña Smith MD [address] [facility] [address] [place] [address] Health Maintenance Due Date Last [...] F inal Result from Last 3 Months Additional Health Concerns Infection Onset Date Last Indicated R/O C. diff 06/27/2024 06/27/2024 Insurance
[2024-06-29 17:21] LABS: Toxigenic C. Diff NEGATIVE (NEGATIVE)
== END 2024-06-29 15:55 | disposition home or self-care (01) ==
PROVIDERS: Visit Provider Internal Medicine Hematology & Oncology
DX: R10.84 Generalized abdominal pain (principal)
CPT/HCPCS: 87493

== ENCOUNTER 2024-07-21 02:08 | Day surgery (SDC) | payer MEDICARE, SELFPAY ==
[2024-07-13 14:01] VITALS: BMI 15.0
[2024-07-21] VITALS (7 sets, daily range): BP systolic 83–114; BP diastolic 48–68; PULSE 60–79; RESP 14–22; TEMP 36.9; O2SAT 99–100; BMI 15.1
--- OUTSIDE RECORDS SUMMARY | 2024-07-21 02:10 | XMS_ITS | Clinical Summary ---
Author Organization [facility] Ginna jiang Charo Address [address] [place] [address] Care Team Providers Care Advertising Sales Agent Name Role Phone Unavailable Primary Care Provider Unavailabl e Allergies Active Allergy Reactions Criticality Noted Date Comments Penicillins Unknown 04/28/2023 Medications ondansetron (ZOFRAN ODT) 8 mg Tablet, Rapid DissolveIndicati ons:Nausea and vomiting, unspecified vomiting type Dissolve 1 tablet on top of tongue then swallow with saliva every 8 hours as needed for nausea or vomiting 30 Tablet 5 Active ciprofloxacin HCl (Cipro) 500 mg tablet Take 1 Tablet (500 mg) by mouth 2 times daily for 10 days. 20 Tablet 5 06/23/19 25 Active Problems No known active problems Encounters Date Type Department Care Team Description 07/07/2024 Orders Only [facility] Oncology and Hematology - Jorge L [address] [place] [address] Peña Smith MD 07/05/2024 Telephone [facility] Oncology and Hematology - [place] L [address] [place] [address] Peña Smith MD Vomiting 07/05/2024 Telephone [facility] Oncology and Hematology - Jorge L [address] [place] [address] Peña Smith MD GI Referral 07/04/2024 Orders Only [facility] Oncology and Hematology Jorge L [address] [place] [address] Peña Smith MD Generalized abdominal pain (Primary Dx) 06/27/2024 Telephone [facility] Oncology and Hematology - Jorge L [address] [place] [phone] Peña Smith MD abdominal pain follow up 06/27/2024 Orders Only [facility] Oncology and Hematology - Jorge L [address] [place] [address] Peña Smith MD Generalized abdominal pain (Primary Dx) 06/27/2024 Telephone [facility] Oncology and Hematology - Jorge L [address] Peña Smith MD Abdominal Pain 06/12/2024 Orders Only [facility] Oncology and Hematology - Jorge L [address] [place] [address] Peña Smith MD 05/17/2024 Telephone [facility] Oncology and Hematology - Jorge L [address] [place] [phone] Peña Smith MD Abdominal Pain 05/16/2024 Orders Only [facility] Oncology and Hematology - Jorge L [address] [place] [address] Peña Smith MD 05/15/2024 Telephone [facility] Oncology and Hematology - Jorge L [address] [place] [phone] Peña Smith MD Abdominal Pain from Last [...] Comments Blood Pressure 113/68 03/31/2024 8:43 AM RETAIL ADVERTISING ACCOUNT EXECUTIVE Pulse 85 03/31/2024 8:43 AM RETAIL ADVERTISING ACCOUNT EXECUTIVE Temperature 36.8 C (98.3 F) 03/31/2024 8:43 AM RETAIL ADVERTISING ACCOUNT EXECUTIVE Respiratory Rate 16 03/31/2024 8:43 AM RETAIL ADVERTISING ACCOUNT EXECUTIVE Oxygen Saturation 97% 03/31/2024 8:43 AM RETAIL ADVERTISING ACCOUNT EXECUTIVE Inhaled Oxygen Concentration - - Weight 63.2 kg (139 lb 6.4 oz) 03/31/2024 8:43 A M RETAIL ADVERTISING ACCOUNT EXECUTIVE Height 172.7 cm (5' 8) 04/28/2023 3:09 PM CDT Body Mass Index 21.2 04/28/2023 3:09 PM CDT Plan of Treatment Upcoming Encounters Date Type Department Care Team (Late st Contact Info) Description 08/04/2024 8:30 AM CDT Office Visit [facility] Oncology and Hematology [facility] [address] [facility] [address] [place] [address] Peña Smith MD [address] [facility] [address] [place] [address] Health Maintenance Due Date Last Done Comments DTAP/TDAP/TD VACCINES (1 - Tdap) 1977 PNEUMOCOCCAL VACCINE 50+ YEARS (1 of 1 - PCV) 10/01/19 09 ZOSTER VACCINE (1 of 2) 2008 INFLUENZA VACCINE (#1) 2023 Abdominal Aortic Aneurysm (AAA) Screening 10/01/2023 RSV VACCINE (60+ or ) (1 - 1-dose 75+ series) 2033 Procedures Procedure Name Priority Date/Time Associated Diagnosis Comments C DIFFICILE ANTIGEN AND TOXIN Routine 06/29/2024 4:51 PM CDT XR ABDOMEN 1 VW Routine 05/16/2024 11:33 AM CDT from Last 3 Months Results * C DIFFICILE ANTIGEN AND TOXIN (06/29/2024 4:51 PM CDT) Stool Peña Smith MD MICRO - GEN ORDERABLES COM Lakia l Result * XR ABDOMEN 1 VW (05/16/2024 11:33 AM CDT) Anatomical Region Laterality Modality Abdomen Other us Peña Smith MD DIAGNOSTIC IMAGING ORDERABLES F inal Result from Last 3 Months Additional Health Concerns Infection Onset Date Last Indicated R/O C. diff 06/27/2024 06/27/2024 Insurance [place] [id number]
--- NOTE | 2024-07-21 10:52 | WPDANESEPPF ---
Anes - Initial Pre Proc Eval Procedure: Operation Date: 07/21/24 11:15 Proposed Procedures p Esophagogastroduodenoscopy - Mehdi Ramon MD Date/Time: 07/21/24 10:52 Surgeon: Mehdi Ramon MD Pre Op Diagnosis: Chronic or unspecified gastric ulcer with perforat Patient Data Age: 63 Gender: M Height: 1.73 m Weight: 45.1 kg Last Vital Signs Temp 36.9 C 07/21/24 10:46 Pulse 79 07/21/24 10:46 Resp 18 07/21/24 10:46 BP 100/63 07/21/24 10:46 Pulse Ox 99 07/21/24 10:46 O2 Del Method Room Air 07/21/24 10:46 Allergies Allergy/AdvReac Type Severity Reaction Status Date / Time Penicillins Allergy Intermediate rash Verified 07/21/24 10:45 Home Medications ?Medication ?Instructions ?Recorded ?Confirmed ?Type dicyclomine 10 mg capsule 10 mg PO TID #12 caps 05/19/24 07/21/24 Rx ondansetron HCl 4 mg tablet 4 mg PO Q8H 07/12/24 07/21/24 History promethazine 25 mg tablet 25 mg PO Q6H PRN nausea and 07/12/24 07/21/24 Rx vomiting #90 tabs Patient hx anesthesia problems: none Family hx anesthesia problems: none Results Review: All pre-operative results and documents have been reviewed as part of the pre-operative evaluation. 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, stage II A Perforated gastric ulcer (~01/2023) Colon polyps Neoplasm of ascending colon Osteoarthritis Anemia History of tobacco abuse Marijuana abuse, continuous used for pain control r/t arthritis Surgical History Surgical History History of tonsillectomy History of abdominal surgery (~01/22/23) Extended right hemicolectomy with ileo transverse hand-sewn anastomosis, drainage of multiple right upper quadrant and perigastric abscesses, repair gastric antral perforation, omentoplasty H/O hemicolectomy (~01/22/23) Hepatic abscess (~01/2023) s/p percutaneus drainage Family History Family History Father Acute myocardial infarction, Onset Age: 58 Cancer, Onset Age: 58 unclear primary source, was metastatic at time of diagnosis and was shortly after discovered Hypertension Sibling Cancer brother, not close with family. unknown type. Hypertension Sibling Cancer brother, colon cancer. Grandparent Hypertension Cerebrovascular accident maternal gradfather Grandparent Hypertension Cerebrovascular accident maternal grandma Sibling Chronic obstructive pulmonary disease sister Sibling Chronic obstructive pulmonary disease sister Grandparent Hypertension paternal grandma Grandparent Hypertension paternal grandpa Social History Social History Social History: Currently lives in [facility] in [place]. Lives alone with dogs. . Elects family friend, Deidre Sands, as surrogate decision maker. Code Status: Full Code, requesting no prolonged ventilation or permanent G-tube. Okay with temporary NG/OG. Smoking packs per day: 3 Smoking cigarettes per day: 60.0 Years smoked: 45 Smoking pack-years: 135.00 Smoking status: Former smoker Tobacco type: cigarettes Second hand tobacco smoke exposure: No Alcohol intake: never Substance use: current Substance use type: marijuana Other substance usage details: SMOKES MARIJUANA Last use: 02/17/23 Do You Feel Safe in your Home?: Yes Lack of Transportation: No Lack of Food: Never True Current Housing: I Have Housing Concerned About Future Housing: No Difficulty Paying Gas/Electric Bills: No Difficulty Paying for Meds: No Currently Unemployed: No Education: High School Diploma/GED Difficulty w/ Childcare or Family Care: No Living arrangements: alone Additional living arrangements comments: PT LIVES IN HIS [place] AT [place], USES FRIEND DEIDRE'S ADDRESS Occupation/Education: retired Gender identity (if verbalized by the patient): Male Sexual Orientation (if Verbalized by the Patient): Straight or Heterosexual Spiritual care concerns: No Anes - Eval Final PreProcedure Day of Procedure 07/21/24 10:52 Patient weight: cachectic Heart: regular rate and rhythm Lungs: decreased breath sounds Airway: Mallampati scale class II Neurological: alert and oriented Last oral intake: >/= 8 hours ASA classification: III Emergent: no Anesthetic plan: proceed Anesthesia type and monitoring: general GIVS and standard monitoring Results Review: All pre-operative results and documents have been reviewed as part of the pre-operative evaluation. Informed Consent: The patient's anesthetic plan and its attendant risks and benefits were discussed with the patient/family/POA. Questions were solicited and answers provided to the satisfaction of the patient/family/POA.
[2024-07-21] MEDS: LACTATED RINGERS 1,000 ML 150 ML IV CONT (11:02)
--- NOTE | 2024-07-21 11:12 | WPDHPUPDATE1 ---
History and Physical Update Update Date/Time: 07/21/24 11:12 History and Physical has been reviewed, including an updated exam of the patient. There are NO changes in the patient's condition. Risks, benefits, and alternatives have been discussed and questions answered. Patient agrees to proceed with procedure.
--- NOTE | 2024-07-21 11:21 | S_PTH ---
PATIENT: Jose Manuel Kelsey LOC: [facility]#:[id number] AGE/SX: 63/M ROOM: RE07/21/[address]: Mehdi Ramon MD : 1960 BED: DIS: 07/21/2024 SPEC #: [id number] RECD: 07/21/24 13:16 STATUS: GHASSAN SUAREZ #: [id number] BRIA: 07/21/24 11:[address]: Mehdi Ramon DEPT: [facility] Surgical RECD BY: Malathi Redding ENTERED: 07/21/24 13:17 SP TYPE: Surgical OTHR DR: SCRAP PILER PHYSICIAN Tissues: A - Esophageal Biopsy B - Gastric Biopsy C - Small Bowel Bx Procedures: Hematoxylin and Eosin Stain Gross and Microscopic Level 4
--- NOTE | 2024-07-21 11:53 | SUR.PHASEII ---
Pt's woke up rubbing left eye. Left eye is red and pt states it is irritated. New orders received to initiate corneal abrasion protocol from Dr. Benavides (anesthesiologist).
[2024-07-21] MEDS: ARTIFICIAL TEARS OPHTH SOLN 15 ML BOTTLE 1 DROP EACH EYE (12:02)
[2024-07-21] MEDS: PROPARACAINE HCL 0.5% 15 ML OPHTH SOLN 1 DROP EACH EYE (12:07)
[2024-07-21] MEDS: DICLOFENAC SODIUM 0.1% OPHTH SOLN 2.5 ML BOTTLE 1 DROP EACH EYE (12:12)
== END 2024-07-21 12:25 | disposition home or self-care (01) ==
PROVIDERS: Visit Provider Internal Medicine Gastroenterology
PROC: 0DJ08ZZ Inspection of Upper Intestinal Tract, Via Natural or Artificial Opening Endoscopic (ICD-10-PCS; CPT 43239; principal; 2024-07-21 11:15)
DX: K21.00 Gastro-esophageal reflux disease with esophagitis, without bleeding (principal); B37.81 Candidal esophagitis; K29.70 Gastritis, unspecified, without bleeding; D64.9 Anemia, unspecified; G89.29 Other chronic pain; M25.562 Pain in left knee; M25.561 Pain in right knee; M19.90 Unspecified osteoarthritis, unspecified site; F12.90 Cannabis use, unspecified, uncomplicated; Z79.82 Long term (current) use of aspirin; Z79.01 Long term (current) use of anticoagulants; Z98.890 Other specified postprocedural states; Z90.49 Acquired absence of other specified parts of digestive tract; Z87.891 Personal history of nicotine dependence; Z87.11 Personal history of peptic ulcer disease; Z86.0100 Personal history of colon polyps, unspecified; Z87.19 Personal history of other diseases of the digestive system; Z85.038 Personal history of other malignant neoplasm of large intestine; Z80.0 Family history of malignant neoplasm of digestive organs; Z82.49 Family history of ischemic heart disease and other diseases of the circulatory system
CPT/HCPCS: 43239; 88305; A9270; J2003; J7120

== ENCOUNTER 2024-07-31 08:16 | Outpatient (CLI) | payer MEDICARE, SELFPAY ==
--- NOTE | ~2024-07-31 | CT_ITS ---
CLINICAL INDICATION: Personal history of colon cancer post right-sided hemicolectomy January 2023 pr esents for follow-up imaging COMPARISON: 05/19/2024, 11/13/2023 and 04/30/2023. TECHNIQUE: An enhanced CT of the abdomen and pelvis was performed utilizing multislice spiral [employer] ue reconstructed at 5 mm slice thickness. Coronal and sagittal reconstructions were performed. This CT examination was performed utilizing dose reduction techniques. DLP: 254 mGy-cm FINDINGS/OBSERVATIONS: Lung: Redemonstration of left apical scarring. The remainder of the lungs are clear. The heart is of normal size, without pericardial effusion. Mediastinum: No pathologically enlarged or morphologically suspicious lymph nodes are identified within the medias tinum, bilateral axilla, within the soft tissues of the anterior chest wall. Soft tissues of the chest: Unremarkable. Bones of the chest: No acute fracture. No lytic or blastic lesions are identified. Liver: The liver enhances homogeneously and is not enlarged. Gallbladder and biliary system: The gallbladder is distended, and otherwise unremarkable. Pancreas: The pancreas enhances homogeneously, without ductal dilatation. Spleen: The spleen enhances homogeneously and is not enlarged. Kidneys: The bilateral kidneys enhance symmetrically without hydronephrosis or renal calculi. Adrenal glands: Unremarkable. Gastrointestinal tract: Small hiatal hernia is present. Multiple loops of fluid-filled large and small bowel are identified, without dilatation or mural thic kening. Appendix: Surgically absent. Vasculature: No calcified atherosclerotic disease is present. No aneurysmal dilatation. Lymph nodes: Scattered nonpathologically enlarged lymph nodes within the root of the mesentery and deep in the pel vis. Pelvic structures: The bladder is only minimally distended and otherwise unremarkable. The prostate gland is not enlarged. Body wall and musculoskeletal: No significant degenerative disease is identified within the thoracic or lumbosacral spine. IMPRESSION: Findings within the chest, abdomen and pelvis which demonstrate a positive response to treatment, as detailed above. Reviewed, dictated and finalized at location A. IMPRESSION: Findings within the chest, abdomen and pelvis which demonstrate a positive resp onse to treatment, as detailed above.
[2024-07-31 08:46] LABS: Estimated Glomerular Filt Rate > 60
== END 2024-07-31 08:17 | disposition home or self-care (01) ==
PROVIDERS: PCP Internal Medicine; Visit Provider Internal Medicine Hematology & Oncology
DX: C18.9 Malignant neoplasm of colon, unspecified (principal)
CPT/HCPCS: 71260; 74177; Q9967

== ENCOUNTER 2024-08-03 11:39 | Outpatient (CLI) | payer MEDICARE, SELFPAY ==
[2024-08-03 12:08] LABS: Basophils Percent Auto 0.1 % (0.2-1.2); Eosinophils Percent Auto 0.4 % (0-4.4); Hematocrit 38.1 % (42.0-52.0); Hemoglobin 12.7 g/dL (14.0-18.0); Immature Granulocyte Absolute 0.02 K/mm3 (0.00-0.031); Immature Granulocyte Percent A 0.3 % (0-0.5); Lymphocytes Absolute Auto 1.28 K/mm3 (0.9-3.2); Lymphocytes Percent Auto 16.8 % (18.3-44.2); Mean Corpuscular HGB Conc 33.3 g/dl (32-36); Mean Corpuscular Hemoglobin 29.3 pg (26-34); Mean Platelet Volume 9.4 fl (7.4-10.4); Monocytes Absolute Auto 0.5 K/mm3 (0.1-0.6); Monocytes Percent Auto 6.7 % (2.6-8.5); Neutrophils Absolute Auto 5.8 K/mm3 (1.3-6.7); Neutrophils Percent Auto 75.7 % (45.5-73.1); Platelet Count Result 244 k/mm3 (150-375); Red Blood Count 4.33 M/mm3 (4.6-6.20); Red Cell Distribution Width 14.9 % (11.5-14.5); White Blood Count 7.6 K/mm3 (4.5-10.0)
[2024-08-03 13:52] LABS: Iron 45 ug/dL (49-181)
[2024-08-03 14:01] LABS: Percent Iron Saturation 21 % (20-50)
[2024-08-03 14:06] LABS: Alanine Aminotransferase 21 U/L (6-50); Albumin Level 3.1 g/dL (3.5-5.1); Alkaline Phosphatase 104 U/L (38-126); Anion Gap 8 mmol/L (4-12); Aspartate Amino Transferase 31 U/L (17-59); Bilirubin,Total 0.7 mg/dL (0.2-1.3); Blood Urea Nitrogen 25 mg/dL (9-20); Calcium 8.5 mg/dL (8.4-10.2); Carbon Dioxide 38 mmol/L (22-30); Chloride 85 mmol/L (98-107); Estimated Glomerular Filt Rate > 60; Glucose 111 mg/dL (65-110); Potassium 2.5 mmol/L (3.4-5.0); Sodium 131 mmol/L (137-145); Total Protein 5.5 g/dL (6.3-8.2)
[2024-08-03 14:27] LABS: Carcinoembryonic Antigen 6.5 ng/mL (0.0-3.0)
== END 2024-08-03 11:40 | disposition home or self-care (01) ==
PROVIDERS: PCP Internal Medicine; Visit Provider Internal Medicine Hematology & Oncology
DX: D64.9 Anemia, unspecified (principal); C18.9 Malignant neoplasm of colon, unspecified
CPT/HCPCS: 36415; 80053; 82378; 82728; 83540; 83550; 85025

== ENCOUNTER 2024-08-26 11:45 | Inpatient (IN) | payer MEDICARE, SELFPAY ==
[2024-08-23 13:17] VITALS: BMI 13.1
--- NOTE | 2024-08-23 16:53 | PCCCNOTE ---
Spoke with Marie at [facility]. Faxed face sheet and most recent office note to initiate referral for tube feeding. Will follow up after procedure on Wednesday.
[2024-08-25] VITALS (8 sets, daily range): BP systolic 83–106; BP diastolic 48–67; PULSE 69–93; RESP 14–20; TEMP 36.6–36.8; O2SAT 94–100; BMI 12.7
--- OUTSIDE RECORDS SUMMARY | 2024-08-25 00:52 | XMS_ITS | Clinical Summary ---
Author Organization [facility] Ginna jiang Charo Address [address] [place] [address] Care Team Providers Care Workforce Staffing Advisor Name Role Phone Unavailable Primary Care Provider Unavailabl e Allergies Active Allergy Reactions Criticality Noted Date Comments Penicillins Unknown 04/28/2023 Medications ondansetron (ZOFRAN ODT) 8 mg Tablet, Rapid DissolveIndicati ons:Nausea and vomiting, unspecified vomiting type Dissolve 1 tablet on top of tongue then swallow with saliva every 8 hours as needed for nausea or vomiting 30 Tablet 5 Active potassium CHLORIDE (K-DUR,KLOR-CON M20) 20 mEq Extended Release tablet Take 1 Tablet (20 mEq) by mouth 2 times daily. 60 Tablet 1 5 Active megestroL (MEGACE) 400 mg/10 mL (40 mg/mL) suspension Take 10 mL (400 mg) by mouth daily. 240 mL 1 5 Active Active Problems No known active problems Encounters Date Type Department Care Team Description 08/17/2024 Orders Only [facility] Oncology and Hematology - Jorge L [address] [place] [address] Peña Smith MD 08/07/2024 Telephone [facility] Oncology and Hematology - Jorge L [address] [place] [address] Peña Smith MD PEG placement 08/07/2024 Telephone [facility] Oncology and Hematology - Jorge L [address] [place] [address] Peña Smith MD GI Follow up 08/07/2024 Telephone [facility] Oncology and Hematology [facility] [address] [place] [address] Peña Smith MD GI Appointment 08/04/2024 8:30 AM CDT Office Visit [facility] Oncology and Hematology - [place] [address] [place] [address] Peña Smith MD Malignant neoplasm of colon, unspecified part of colon (CMS/HCC) (Primary Dx) 08/04/2024 Abstract [facility] Oncology and Hematology - Jorge L [address] [place] [address] Peña Smith MD 08/04/2024 Orders Only [facility] Oncology and Hematology - Jorge L [address] [place] [address] Peña Smith MD 08/03/2024 Refill [facility] Oncology and Hematology - Jorge L [address] [place] [address] Peña Smith MD 08/01/2024 External Device Data STL ABSTRACTION Provider, Abstract 08/01/2024 Orders Only [facility] Oncology and Hematology - Jorge L [address] [place] [address] Peña Smith MD 07/31/2024 Orders Only [facility] Oncology and Hematology - Jorge L [address] [place] [address] Peña Smith MD 07/26/2024 Telephone [facility] Oncology and Hematology - Jorge L [address] [place] [address] Peña Smith MD CT Scan 07/26/2024 Orders Only [facility] Oncology and Hematology - Joreg L [address] [place] [address] Peña Smith MD Malignant neoplasm of colon, unspecified part of colon (CMS/HCC) (Primary Dx) 07/07/2024 Orders Only [facility] Oncology and Hematology - Jorge L [address] Peña Smith MD 07/05/2024 Telephone [facility] Oncology and Hematology - Jorge [address] Peña Smith MD Vomiting 07/05/2024 Telephone [facility] Oncology and Hematology - Jorge [address] Peña Smith MD GI Referral 07/04/2024 Orders Only [facility] Oncology and Hematology - Jorge [address] [place] [address] Peña Smith MD Generalized abdominal pain (Primary Dx) 06/27/2024 Telephone [facility] Oncology and Hematology - Jorge [address] [place] [address] Peña Smith MD abdominal pain follow up 06/27/2024 Orders Only [facility] Oncology and Hematology - Jorge [address] [place] [address] Peña Smith MD Generalized abdominal pain (Primary Dx) 06/27/2024 Telephone [facility] Oncology and Hematology - Jorge [address] [place] [address] Peña Smith MD Abdominal Pain 06/12/2024 Orders Only [facility] Oncology and Hematology - Jorge L [address] [place] [address] Peña Smith MD from Last 3 Months Family History Medical [...] Sign Reading Time Taken Comments Blood Pressure 101/61 08/04/2024 8:22 AM CDT Pulse 89 08/04/2024 8:22 AM CDT Temperature 37.1 C (98.8 F) 08/04/2024 8:22 AM CDT Respiratory Rate 15 08/04/2024 8:22 AM CDT Oxygen Saturation 96% 08/04/2024 8:2 2 AM CDT Inhaled Oxygen Concentration - - Weight 43.8 kg (96 lb 9.6 oz) 08/04/2024 8:22 AM CDT pt verbally stated that this is the correct weight Height 172.7 cm (5' 8) 04/28/2023 3:09 PM CDT Body Mass Index 14.69 04/28/2023 3:09 PM CDT Plan of Treatment Upcoming Encounters Date Type Department Care Team (Late st Contact Info) Description 10/04/2024 10:00 AM CDT Office Visit [facility] Oncology and Hematology - Jorge L [address] [facility] [address] [place] [address] Peña Smith MD [address] [facility] [address] [place] [address] Health Maintenance Due Date Last Done Comments DTAP/TDAP/TD VACCINES (1 - Tdap) 1977 PNEUMOCOCCAL VACCINE 50+ YEARS (1 of 1 - PCV) 10/01/19 09 ZOSTER VACCINE (1 of 2) 2008 Abdominal Aortic Aneurysm (AAA) Screening 10/01/2023 INFLUENZA VACCINE (#1) 2024 RSV VACCINE (60+ or ) (1 - 1-dose 75+ series) 2033 Procedures Procedure Name Priority Date/Time Associated Diagnosis Comments IRON LEVEL Routine 08/03/2024 8:42 AM CDT CREATININE Routine 07/31/2024 12:[address] CHEST ABDOMEN PELVIS W CONT Routine 07/31/2024 10:33 AM CDT C DIFFICILE ANTIGEN AND TOXIN Routine 06/29/2024 4:51 PM CDT from Last 3 Months Results * IRON LEVEL (08/03/2024 8:42 AM CDT) Blood us Peña Smith MD CHEMISTRY ORDERABLES Final Resu lt * CREATININE (07/31/2024 12:24 PM CDT) Blood us Peña Smith MD CHEMISTRY ORDERABLES Final Resu lt * CT CHEST ABDOMEN PELVIS W CONT (07/31/2024 10:33 AM CDT) Anatomical Region Laterality Modality Chest Computed Tomogra phy us Peña Smith MD CT ORDERABLES Final Result * C DIFFICILE ANTIGEN AND TOXIN (06/29/2024 4:51 PM CDT) Stool us Peña Smith MD MICRO - GEN ORDERABLES COM Lakia l Result from Last 3 Months Additional Health Concerns Infection Onset Date Last Indicated R/O C. diff 06/27/2024 06/27/2024 Insurance
--- OUTSIDE RECORDS SUMMARY | 2024-08-25 00:52 | XMS_ITS | Data Portability ---
Author Organization [facility], Main Office Address [address] [place] [address] Assessment No assessment recorded. Plan of Treatment Reminders Order Date Submit Date Provider Last Modified By Organization Details Last Modified Time Details Appointments Any 15 2024 10:45A M Guadalupe escobar MD Not available Not available Not available Lab PSA, total, serum or plasma [address] (Lab), [address] [place], [address], 08/17/2024 17:56:03 lipid panel, serum [address] (Lab), [address] [place], [address], 08/17/2024 17:56:03 CMP, serum or plasma [address] (Lab), [address] [place] [address], [address], 08/17/2024 17:56:04 CBC w/ auto diff [address] (Lab), [address] [place] [address], [address], 08/17/2024 17:56:04 TSH + free T4, serum [address] (Lab), [address] [place] [address], [address], 08/24/2024 08:27:23 vitamin D3, 25-hydrox y, serum [address] (Lab), [address] [place], [address], 08/17/2024 17:56:04 vitamin B12 + folate, serum or blood [address] (Lab), [address] [place], [address], 08/17/2024 17:56:04 PSA, total, serum or plasma [address] (Lab), [address] [place], [address], 08/02/2024 09:59:13 lipid panel, serum [address] (Lab), [address] [place], [address], 08/02/2024 09:56:22 CMP, serum or plasma [address] (Lab), [address] [place], [address], 08/02/2024 09:56:37 CBC w/ auto diff [address] (Lab), [address] [place], [address], 08/02/2024 09:58:54 TSH, serum or plasma [address] (Lab), [address] [place], [address], 08/02/2024 09:59:03 vitamin D3, 25-hydrox y, serum [address] (Lab), [address] [place], [address], 08/02/2024 09:59:22 vitamin B12 + folate, serum or blood 2024 025 [id number] [facility] ([facility] [address], [place], [address], 08/02/2024 09:59:31 Referral gastroent erologist referral - Please call patient to schedule an appointme nt. Thank you. 2024 025 MECHELLE leos MD, [address] [facility] [address], [facility] [address], [place], [address], 08/24/2024 10:17:54 gastroent erologist referral - Please call patient to schedule an appointme nt. Thank you. 2024 025 MECHELLE leos MD, [address] [facility] [address], [facility] [address], [place], [address], 08/02/2024 10:54:58 oncologis t referral - Please call patient to schedule an appointme nt. Thank you. 2024 025 MECHELLE Smith MD, [address], [place], [address], 08/02/2024 10:00:23 Procedures None recorded. Surgeries None recorded. Imaging None recorded. Medication Orders None recorded. Patient TargetsNo targets recorded. Patient InstructionsNo instructions recorded. Reason for Referral Microfilm Equipment Inspector Referral for Malignant tumor of colon Please call patient to schedule an appointment. Thank you. Referring Physician: Guadalupe Barrios, Internal Medicine, Encounter Date: 07/26/2024 Please call patient to sched ule an appointment. Thank you. Referring Physician: Guadalupe Barrios, Internal Medicine, Encounter Date: 07/26/2024 Microfilm Equipment Inspector Referral for Malignant tumor of colon Please call patient to schedule an appointment. Thank you. Referring Physician: Guadalupe Barrios, Internal Medicine, Encounter Date: 08/17/2024 Results Created Date Observation Date Name Description Value Unit Range Abnormal Flag Note LastModifiedBy Organization Detail LastModifiedTime 08/01/1907/31/2024 alysai ng/sarika ornelas tic resul t No observ ation record ed. [facility] [address], [place], [address], 07/31/2024 18:50:55 Result Notes None recorded. Problems Name Problem SNOMED Code Status Onset Date Resolution Date Notes Provider Name and Address Organization Details Recorded Time Carcinoma of colon 895945449 Active 2022 ISIDORO Andre, [employer] 11:14:51 Gastroesophage al reflux disease 889891701 Active 2024 Guadalupe escobar MD [address], [place], [address], [employer] 11:18:51 Malignant tumor of colon 006855852 Active 2024 Guadalupe escobar MD [address], [address], [place], [address], [employer] 11:35:34 Vitamin D below reference range 819999190 Active 2024 Guadalupe escobar MD [address], [address], [place], [address], [employer] 11:40:38 Vitamin B12 level below reference range 974993248 Active 2024 Guadalupe escobar MD [address], [address], [place], [address], [employer] 11:40:46 Abnormal weight 98007594 Active 2024 ISIDORO Andre, [employer] 15:49:31 Unintentional weight loss 665092051 Active 2024 Guadalupe escobar MD [address], [place], [address], [facility] 16:57:15 Nausea and vomiting 55717293 Active 2024 Alysha Ramey ANDRYCorrine brown, [facility] 15:46:39 Problem Notes None recorded. Procedures Surgical History Date Name Laterality Status Provider Name and Address Organization Details Recorded Time Colon Surgery completed Conchita Rosa MA [facility] 07/26/2024 11:17:46 Imaging Results None recorded. Procedure Notes None recorded. Medical Equipment None Reported. Allergies Allergen ID Allergen Name Allergen Category Reaction Reaction Severity Criticality Documentation Date Start Date Code Code System Note Provider Name and Address Organization Details Recorded Time 00883 Product containin g penicilli n (product) medicatio n hives Not available low 07/26/2024 94499 8001 SNOMED [facility]ita Rosa [facility] 11:12:29 Medications Name Sig Start Date Stop Date Status Note LastModified by Organization Details LastModified Time fluconazole 150 mg tablet TAKE 1 TABLET BY MOUTH DAILY 08/17 completed Not Available Not Available Not Available sucralfate 100 mg/mL oral suspension TAKE 10 ML BY MOUTH 3 TIMES A DAY active Not Available Not Available No t Available ciprofloxac in 500 mg tablet TAKE 1 TABLET (500 MG) BY MOUTH 2 TIMES DAILY FOR 10 DAYS. 07/26 completed Not Available Not Available Not Available ondansetron 8 mg disintegrat ing tablet DISSOLVE 1 TAB ON TOP OF TONGUE THEN SWALLOW W/ SALIVA EVERY 8 HRS NEEDED FOR NAUSEA OR VOMITING 07/26 completed Not Available Not Available Not Available pantoprazol e 40 mg tablet,j carlos yed release TAKE 1 TABLET BY MOUTH EVERY DAY IN THE MORNING active Not Available Not Available No t Available promethazin e 25 mg tablet TAKE 1 TABLET BY MOUTH EVERY 6 HOURS NEEDED FOR NUASEA AND VOMITING active Not Available Not Available No t Available ondansetron 4 mg disintegrat ing tablet Place 1 tablet twice a day by transling ual route as needed. 2024 active Not Available Not Available Not Avai lable dicyclomine 10 mg capsule TAKE 1 CAPSULE BY MOUTH THREE TIMES A DAY 07/26 completed Not Available Not Available Not Available Klor-Con M20 mEq tablet,exte nded release TAKE 1 TABLET BY MOUTH 2 TIMES DAILY 08/17 completed Not Available Not Available Not Available Vitals Date Recorded Body height Body mass index (BMI) Body weight Body temperature Heart rate Oxygen saturation Oxygen saturation in Arterial blood by Pulse oximetry Systolic And Diastolic Provider Name and Address Organization Details Last Updated DateTime 170.18 cm 15.3 kg/m2 04875.0 5 g 99 [degF] 114 /min 96 % 96 % 104/58 mm[Hg] Conchita Rosa MA [employer] 11:11:33 Date Recorded Body height Body mass index (BMI) Body weight Body temperature Heart rate Oxygen saturation Oxygen saturation in Arterial blood by Pulse oximetry Systolic And Diastolic Provider Name and Address Organization Details Last Updated DateTime 170.18 cm 14.3 kg/m2 80296.9 1 g 98.1 [degF] 45 /min 93 % 93 % 100/60 mm[Hg] Conchita Rosa MA [employer] 15:54:01 Social History Question Answer Notes LastModified by Organizat ion Details LastModified Time Tobacco Smoking Status Former Smoker Conchita Rosa MA [facility] 07/26/2024 11:16:39 What Is Your Level Of Caffeine Consumption? Occasional Used To Drink 2 Liters Of Soda A Day Information not available 07/26/2024 In The 14 Days Before Symptom Onset, Have You Had Close Contact With A Laboratory-confir med COVID-19 While That Case Was Ill? No Information not available 07/26/2024 In The 14 Days Before Symptom Onset, Have You Had Close Contact With A Person Who Is Under Investigation For COVID-19 While That Person Was Ill? No Information not available 07/26/2024 What Type Of Diet Are You Following? REGULAR Information not available 07/26/2024 Which Illicit Or Recreational Drugs Have You Used? Marijuana Information not available 07/26/2024 Have There Been Any Changes To Your Family Or Social Situation? No Information no t available 07/26/2024 When Did You Quit Smoking? 16+yearssincel astcigarette Information not available 07/26/2024 Do You Use Insect Repellent Routinely? No Information not available 07/26/2024 Where Do You Live? [place]iler Information not available 07/26/2024 What Was The Date Of Your Most Recent Tobacco Screening? 08/17/2024 Information not available 08/17/2024 Do You Have Any Pets? Yes Information not available 07/26/2024 What Is Your Relationship Status? Information not available 07/26/2024 Do You Use Your Seat Belt Or Car Seat Routinely? Yes Information not available 07/26/2024 Do You Have Smoke And Carbon Monoxide Detectors In Your Home? Yes Information not available 07/26/2024 At What Age Did You Start Smoking Tobacco? 5 Information not available 07/26/2024 Are You Passively Exposed To Smoke? No Information no t available 07/26/2024 Are There Any Smokers In Your House? No Information not available 07/26/2024 How Much Tobacco Do You Smoke? 3+ PPD Information not available 07/26/2024 Do You Use Sunscreen Routinely? No Information not available 07/26/2024 Have You Recently Traveled Abroad? No Information not available 07/26/2024 Have You Used IV Drugs? No Information not available 07/26/2024 Do You Have Any Dietary Restrictions? No Information not available 07/26/2024 Sex: Unknown Functional Status Question Answer Note LastModified by Organizat ion Details LastModified Time Do you use any illicit or recreational drugs? Yes Information not available 07/26/2024 Do you or have you ever used any other forms of tobacco or nicotine? No Information not available 07/26/2024 What is your level of alcohol consumption? None Information not available 07/26/2024 Are you currently employed? No Retired Information not available 07/26/2024 What is your exercise level? None Information not available 07/26/2024 Mental Status Question Answer Note LastModified by Organization D etails LastModified Time Do you feel stressed (tense, restless, nervous, or anxious, or unable to sleep at night)? [id number] Information not available 07/26/2024 Family History Relationship Description Onset Age of this Age Resolved Age Notes LastModified by Organization Details LastModified Time Unspecified Relation Malignant neoplastic disease [email or web address] Not available 2024 11:13:31 Unspecified Relation Heart disease [email or web address] Not available 2024 11:13:47 Medical History No medical history recorded. Past Encounters Encounter ID Performer Location Encounter Start Date Encounter Closed Date Diagnosis/Indication Diagnosis SNOMED-CT Code Diagnosis ICD10 Code Diagnosis Note [id number] Guadalupe castro MD [facility] [address] [place] [address] 07/26/2024 10:59:09 07/26/2024 12:23:33 Screening due 351397684 Z13.9 C-scope: Hx of CRC Get yearly flu shotGet tdap if not doneGet shingrix vaccineCan do COVID 19 booster and Prevnar #20 RTC in one month, do labs, ER if worse, he is very appreciati ve to this plan of care Hyperlipid emia screening 607500504 Z13.220 Screening for malignant neoplasm of prostate 847580077 Z12.5 Gastroesop hageal reflux disease 931947645 K21.9 S/p EGD 07/21/2024 : Dr Muir Malignant tumor of colon 931143773 C18.9 S/p CRC and sees Dr Rodgers will get an apt with Dr Smith on 08/04/2024 Concern for the abd pain, did speak with Dr Smith personally and he has already ordered the CT A/PAdvised to proceed to the ER if any of the symptoms worsenHe is very appreciati ve to this plan of care Vitamin D below reference range 326747719 R79.89 Vitamin B1 2 level below reference range 836768519 R79.89 [id number] Guadalupe castro MD [facility] [address] [facility] [place] [address] 08/17/2024 15:46:48 08/17/2024 17:15:13 Screening due 996227251 Z13.9 C-scope: Hx of CRC Get yearly flu shotGet tdap if not doneGet shingrix vaccineCan do COVID 19 booster and Prevnar #20 RTC in one month, do labs, ER if worse, he is very appreciati ve to this plan of care Hyperlipid emia screening 725840949 Z13.220 Screening for malignant neoplasm of prostate 837976195 Z12.5 Gastroesop hageal reflux disease 358748122 K21.9 S/p EGD 07/21/2024 : Dr Quiles reated with sucralfate , promethazi ne and pantoprazo le 40mg daily Malignant tumor of colon 752980918 C18.9 S/p CRC and sees Dr Rodgers will get an apt with Dr Smtih on 08/04/2024 Concern for the abd pain, did speak with Dr Smith personally and he has already ordered the CT A/PAdvised to proceed to the ER if any of the symptoms worsenHe is very appreciati ve to this plan of care OV 08/17/2024 :Did see Dr Jeong referred to Dr De La Cruz on 08/04/2024 , as he was not able to eating and he needs to see Dr Parnell id speak with Dr Smith and he has personally called Dr Muir Vitamin D below reference range 683804625 R79.89 Vitamin B1 2 level below reference range 795819057 R79.89 Health Concerns Section Related Observation LastModified by Organization Detai ls LastModified Time None Recorded Concern Status LastModified by Organization Details LastModified Time None Recorded Advance Directives Directive None Recorded Payers Insurance Date Sequence Insurance Name Policy Number Policy Lucas Covered Member ID Lucas Member ID Guarantor Name 08/16/2024 1 [facility] (MEDICARE REPLACEMENT/A DVANTAGE - HMO) [id number] Jose Manuel Kelsey [id number] Jose Manuel Kelsey Notes Date Note Type Note Provider Name and Address Organization Details Recorded Time 07/26/2024 text/html OV 07/26/2024: Here to establish care Present Hx:CRCGERD Here as he was seen by Dr Wood MITCHELL for gastritis, was seen as he was having N/V, now better but states that he has lost a lot of weight Guadalupe Barrios MD [address], [place], [address], [facility] [employer] [facility] 07/26/2024 18:51:31 08/17/2024 text/html OV 07/26/2024: Here to establish care Present Hx:CRCGERD Here as he was seen by Dr Wood MITCHELL for gastritis, was seen as he was having N/V, now better but states that he has lost a lot of weight OV 08/17/2024: Here for his f/u apt s/p EGDHe states that he does have nausea and he has been waiting to hear back from Dr Muir about getting a feeding tube insertedHe has noted ongoing mid abdominal discomfort and states that the nausea prevents him from eating, he is concerned about his weight loss Guadalupe Barrios MD [address], [place], [address], [facility] [employer] [facility] 08/17/2024 17:34:22
--- OUTSIDE RECORDS SUMMARY | 2024-08-25 00:52 | XMS_ITS | Clinical Summary ---
Author Organization [facility] Address [address] [place] [address] Care Team Providers Care Remnants Cutter Name Role Phone Unavailable Primary Care Provider [...] - 2023-2 5 season) 2023 PHQ-2 (Physician Hamer) 02/09/2024 RSV Immunization or 60+ Years (1 [...] patient's age to complete this topic Insurance [facility] [place] [id number]
[2024-08-25 12:31] LABS: Hematocrit 33.0 % (42.0-52.0); Hemoglobin 10.9 g/dL (14.0-18.0); Immature Granulocyte Percent A 0.4 % (0-0.5); Lymphocytes Absolute Auto 1.12 K/mm3 (0.9-3.2); Mean Corpuscular HGB Conc 33.0 g/dl (32-36); Mean Corpuscular Hemoglobin 29.8 pg (26-34); Mean Corpuscular Volume 90.2 fl (80-100); Nucleated Red Blood Cells Absolute Auto 0.000 K/mm3 (0.0-0.012); Nucleated Red Blood Cells Perc 0.0 % (0.0-0.2); Platelet Count Result 121 k/mm3 (150-375); Red Blood Count 3.66 M/mm3 (4.6-6.20); White Blood Count 4.8 K/mm3 (4.5-10.0)
[2024-08-25] MEDS: LACTATED RINGERS 1,000 ML 150 ML IV CONT (12:38)
--- NOTE | 2024-08-25 12:43 | SUR.PREOP ---
Spoke with HAYDEN Wong regarding patient pre-op BP of 83/57. Patient reports feeling dizzy. Patient states he fell at home last night as well. Per Judith, administer 500mL of pre-op fluids once IV is started. Following administration of 500ml LR, patient BP 92/58. Per Judith, slow fluids and wait for pre-op labs to result.
[2024-08-25 12:48] LABS: INR 1.2; Prothrombin Time 15.2 Seconds (11.1-14.7)
[2024-08-25 12:55] LABS: Anion Gap 6 mmol/L (4-12); Blood Urea Nitrogen 20 mg/dL (9-20); Calcium 7.5 mg/dL (8.4-10.2); Carbon Dioxide 26 mmol/L (22-30); Chloride 93 mmol/L (98-107); Estimated CRCL calculation 50 ml/min; Estimated Glomerular Filt Rate > 60; Glucose 78 mg/dL (65-110); Potassium 2.9 mmol/L (3.4-5.0); Sodium 125 mmol/L (137-145)
--- NOTE | 2024-08-25 13:20 | WPDANESEPPF ---
Anes - Initial Pre Proc Eval Procedure: Operation Date: 08/25/24 13:30 Proposed Procedures p Percutaneous Endoscopic Gastrostomy - Mehdi Ramon MD Date/Time: 08/25/24 13:20 Surgeon: Mehdi Ramon MD Pre Op Diagnosis: Unspecified severe protein-calorie malnutrition Patient Data Age: 63 Gender: M Height: 1.73 m Weight: 38 kg Last Vital Signs Temp 36.6 C 08/25/24 12:34 Pulse 69 08/25/24 12:34 Resp 17 08/25/24 12:34 BP 89/48 L 08/25/24 13:14 Pulse Ox 99 08/25/24 12:34 O2 Del Method Room Air 08/25/24 12:34 Allergies Allergy/AdvReac Type Severity Reaction Status Date / Time Penicillins Allergy Intermediate rash Verified 08/25/24 12:32 Home Medications ?Medication ?Instructions ?Recorded ?Confirmed ?Type dicyclomine 10 mg capsule 10 mg PO TID #12 caps 05/19/24 08/23/24 Rx ondansetron HCl 4 mg tablet 4 mg PO Q12H PRN nausea and 07/12/24 08/23/24 History vomiting pantoprazole 40 mg tablet,delayed 40 mg PO QAM #30 tabs 07/21/24 08/25/24 Rx release sucralfate 100 mg/mL oral 1 g (10 mL) PO TID #1,000 mL 07/21/24 08/23/24 Rx suspension (Carafate) promethazine 25 mg tablet See Rx Instructions .Route 08/01/24 08/23/24 Rx .COMPLEX #90 tabs megestrol 400 mg/10 mL (40 mg/mL) 400 mg PO BID 08/23/24 08/23/24 History oral suspension Laboratory Tests 08/25/24 12:06 WBC 4.8 K/mm3 (4.5-10.0) RBC 3.66 L M/mm3 (4.6-6.20) Hgb 10.9 L g/dL (14.0-18.0) Hct 33.0 L % (42.0-52.0) MCV 90.2 fl (80-100) MCH 29.8 pg (26-34) MCHC 33.0 g/dl (32-36) RDW 17.3 H % (11.5-14.5) Plt Count 121 L D k/mm3 (150-375) MPV 8.6 fl (7.4-10.4) Immature Gran % (Auto) 0.4 % (0-0.5) Neut % (Auto) 68.6 % (45.5-73.1) Lymph % (Auto) 23.3 % (18.3-44.2) [place] % (Auto) 7.5 % (2.6-8.5) Eos % (Auto) 0.2 % (0-4.4) Baso % (Auto) 0.0 L % (0.2-1.2) Lymph # (Auto) 1.12 K/mm3 (0.9-3.2) Jerauld # (Auto) 0.4 K/mm3 (0.1-0.6) Eos # (Auto) 0.0 K/mm3 (0-0.3) Baso # (Auto) 0.0 K/mm3 (0.0-0.1) Abs Immat Gran (auto) 0.02 K/mm3 (0.00-0.031) Absolute Neuts (auto) 3.3 K/mm3 (1.3-6.7) Absolute Nucleated RBC 0.000 K/mm3 (0.0-0.012) Nucleated RBC % 0.0 % (0.0-0.2) PT 15.2 H Seconds (11.1-14.7) INR 1.2 Sodium 125 L mmol/L (137-145) Potassium 2.9 L mmol/L (3.4-5.0) Chloride 93 L mmol/L (98-107) Carbon Dioxide 26 mmol/L (22-30) Anion Gap 6 mmol/L (4-12) BUN 20 mg/dL (9-20) Creatinine 0.68 L mg/dL (0.7-1.3) Estim Creat Clear Calc 50 ml/min Estimated GFR > 60 (59 - ) Glucose 78 mg/dL (65-110) Calcium 7.5 L mg/dL (8.4-10.2) Patient hx anesthesia problems: none Family hx anesthesia problems: none Results Review: All pre-operative results and documents have been reviewed as part of the pre-operative evaluation. 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, stage II A Perforated gastric ulcer (~01/2023) Colon polyps Neoplasm of ascending colon Osteoarthritis Anemia History of tobacco abuse Marijuana abuse, continuous used for pain control r/t arthritis Surgical History Surgical History History of tonsillectomy History of abdominal surgery (~01/22/23) Extended right hemicolectomy with ileo transverse hand-sewn anastomosis, drainage of multiple right upper quadrant and perigastric abscesses, repair gastric antral perforation, omentoplasty H/O hemicolectomy (~01/22/23) Hepatic abscess (~01/2023) s/p percutaneus drainage Family History Family History Father Acute myocardial infarction, Onset Age: 58 Cancer, Onset Age: 58 unclear primary source, was metastatic at time of diagnosis and was shortly after discovered Hypertension Sibling Cancer brother, not close with family. unknown type. Hypertension Sibling Cancer brother, colon cancer. Grandparent Hypertension Cerebrovascular accident maternal gradfather Grandparent Hypertension Cerebrovascular accident maternal grandma Sibling Chronic obstructive pulmonary disease sister Sibling Chronic obstructive pulmonary disease sister Grandparent Hypertension paternal grandma Grandparent Hypertension paternal grandpa Social History Social History Social History: Currently lives in pop-out [facility] in [place]. Lives alone with dogs. . Elects family friend, Jamie Sands, as surrogate decision maker. Code Status: Full Code, requesting no prolonged ventilation or permanent G-tube. Okay with temporary NG/OG. Smoking packs per day: 3 Smoking cigarettes per day: 60.0 Years smoked: 45 Smoking pack-years: 135.00 Smoking status: Former smoker Tobacco type: cigarettes Second hand tobacco smoke exposure: No Alcohol intake: never Substance use: current Substance use type: marijuana Other substance usage details: SMOKES MARIJUANA Last use: 02/17/23 Do You Feel Safe in your Home?: Yes Lack of Transportation: No Lack of Food: Never True Current Housing: I Have Housing Concerned About Future Housing: No Difficulty Paying Gas/Electric Bills: No Difficulty Paying for Meds: No Currently Unemployed: No Education: High School Diploma/GED Difficulty w/ Childcare or Family Care: No Living arrangements: alone Additional living arrangements comments: PT LIVES IN HIS CAMPER AT [facility], USES FRIEND JAMIE'S ADDRESS Occupation/Education: retired Gender identity (if verbalized by the patient): Male Sexual Orientation (if Verbalized by the Patient): Straight or Heterosexual Spiritual care concerns: No Anes - Eval Final PreProcedure Day of Procedure 08/25/24 13:20 Patient weight: thin Heart: regular rate and rhythm Lungs: clear to auscultation Airway: Mallampati scale class II Neurological: alert and oriented Last oral intake: >/= 8 hours ASA classification: IV Emergent: no Anesthetic plan: proceed Anesthesia type and monitoring: general GIVS and standard monitoring Results Review: All pre-operative results and documents have been reviewed as part of the pre-operative evaluation. Informed Consent: The patient's anesthetic plan and its attendant risks and benefits were discussed with the patient/family/POA. Questions were solicited and answers provided to the satisfaction of the patient/family/POA.
--- NOTE | 2024-08-25 13:23 | WPDGICN ---
Assessment and Plan Assessment and plan (1) Malnutrition: Code(s): E46 - Unspecified protein-calorie malnutrition Status: Acute Assessment and Plan: he is losing weight with muscle wasting oncologist is worried about it and advised get PEG tube placement today to offer better nutrition will get blood work since recently noted low K and Na also on arrival was hypotensive but improved after fluids (2) Nausea and vomiting in adult: Code(s): R11.2 - Nausea with vomiting, unspecified Status: Acute Assessment and Plan: antiemetics prn egd with peg today (3) Hypotension: Code(s): I95.9 - Hypotension, unspecified Status: Acute Assessment and Plan: treated (4) Hyponatremia: Code(s): E87.1 - Hypo-osmolality and hyponatremia Status: Acute (5) Hypokalemia: Code(s): E87.6 - Hypokalemia Status: Acute Assessment and Plan: replace (6) History of colon cancer: Code(s): Z85.038 - Personal history of other malignant neoplasm of large intestine Status: Acute Assessment and Plan: s/p rt colon surgery, then had colonoscopy without recurrence GI Consult Note Consult date/time: 08/25/24 13:23 Reason for consult: malnutrition and failure to thrive HPI: Jose Manuel Kelsey is a 63 year old male with partial right colectomy (he has h/o colon cancer s/p Rt hemicolectomy in 2022- follow-up colonoscopy 12/2023 negative and recommend to repeat in 3 years). Also h/o perforated gastric ulcer repair 2022 followed with unremarkable EGD but repeat again 07/2024 showed earl esophagitis. He is having issues with keeping food down and lost about 40 pounds last few months despite trying to eat. His oncologist advised to place G-tube and admission because he is cachectic and is wasting away. Also recent blood work showed hypokalemia and hyponatremia. Review of Systems Constitutional: Constitutional: Reports lethargy, Reports weakness and Reports weight loss Eyes: Eyes: Denies blurry vision ENT: Reports Normal hearing present Cardiovascular: Cardiovascular: Denies chest pain Respiratory: Respiratory: Denies cough Gastrointestinal: Gastrointestinal: Denies abdominal pain Genitourinary: Genitourinary: Denies urinary frequency Musculoskeletal: Musculoskeletal: Denies neck pain Integumentary/Breasts: Skin/Breast: Denies rash Neurologic: Denies confusion Psychiatric: Psychiatric: Denies behavioral changes [facility] Past Medical History Medical History (Updated 08/25/24 @ 17:12 by Mehdi Ramon MD) Hypokalemia History of colon cancer Malnutrition Pulmonary embolism (~02/18/23) Earl esophagitis Nausea and vomiting in adult [facility] (current) use of anticoagulants Corneal abrasion Bilateral chronic knee pain Ulcer Blood clot in vein 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, stage II A Perforated gastric ulcer (~01/2023) Colon polyps Neoplasm of ascending colon Osteoarthritis Anemia History of tobacco abuse Marijuana abuse, continuous used for pain control r/t arthritis Surgical History Surgical History (Updated 08/25/24 @ 15:48 by Maria D Griffin APRN) History of tonsillectomy History of abdominal surgery (~01/22/23) Extended right hemicolectomy with ileo transverse hand-sewn anastomosis, drainage of multiple right upper quadrant and perigastric abscesses, repair gastric antral perforation, omentoplasty H/O hemicolectomy (~01/22/23) Hepatic abscess (~01/2023) s/p percutaneus drainage Family History Family History Father Acute myocardial infarction, Onset Age: 58 Cancer, Onset Age: 58 unclear primary source, was metastatic at time of diagnosis and was shortly after discovered Hypertension Sibling Cancer brother, not close with family. unknown type. Hypertension Sibling Cancer brother, colon cancer. Grandparent Hypertension Cerebrovascular accident maternal gradfather Grandparent Hypertension Cerebrovascular accident maternal grandma Sibling Chronic obstructive pulmonary disease sister Sibling Chronic obstructive pulmonary disease sister Grandparent Hypertension paternal grandma Grandparent Hypertension paternal grandpa Social History Social History Social History: Currently lives in pop-out [facility] in [place]. Lives alone with dogs. . Elects family friend, Jamie Sands, as surrogate decision maker. Code Status: Full Code, requesting no prolonged ventilation or permanent G-tube. Okay with temporary NG/OG. Smoking packs per day: 3 Smoking cigarettes per day: 60.0 Years smoked: 45 Smoking pack-years: 135.00 Smoking status: Former smoker Tobacco type: cigarettes Second hand tobacco smoke exposure: No Alcohol intake: never Substance use: current Substance use type: marijuana Other substance usage details: every day Last use: yesterday Do You Feel Safe in your Home?: No Lack of Transportation: No Lack of Food: Never True Current Housing: I Have Housing Concerned About Future Housing: No Difficulty Paying Gas/Electric Bills: No Difficulty Paying for Meds: No Currently Unemployed: No Education: High School Diploma/GED Difficulty w/ Childcare or Family Care: No Living arrangements: alone Additional living arrangements comments: PT LIVES IN HIS [place]PER AT [facility], USES FRIEND JAMIE'S ADDRESS Occupation/Education: retired Gender identity (if verbalized by the patient): Male Sexual Orientation (if Verbalized by the Patient): Straight or Heterosexual Spiritual care concerns: No Meds Home Medications and Allergies Home Medications ?Medication ?Instructions ?Recorded ?Confirmed ?Type dicyclomine 10 mg capsule 10 mg PO TID #12 caps 05/19/24 08/23/24 Rx ondansetron HCl 4 mg tablet 4 mg PO Q12H PRN nausea and 07/12/24 08/23/24 History vomiting pantoprazole 40 mg tablet,delayed 40 mg PO QAM #30 tabs 07/21/24 08/25/24 Rx release sucralfate 100 mg/mL oral 1 g (10 mL) PO TID #1,000 mL 07/21/24 08/23/24 Rx suspension (Carafate) promethazine 25 mg tablet See Rx Instructions .Route 08/01/24 08/23/24 Rx .COMPLEX #90 tabs megestrol 400 mg/10 mL (40 mg/mL) 400 mg PO BID 08/23/24 08/23/24 History oral suspension Allergies Allergy/AdvReac Type Severity Reaction Status Date / Time Penicillins Allergy Intermediate rash Verified 08/25/24 14:13 Vital Signs Vital Signs - 24 hr 08/25/24 12:34 08/25/24 12:43 08/25/24 13:14 Temperature 97.9 F Pulse Rate 69 Respiratory Rate 17 Blood Pressure 83/57 L 92/58 L 89/48 L Pulse Oximetry 99 Oxygen Delivery Room Air Exam Const: General: cooperative Other: cachectic HENMT: Face/Nose/Sinus: Normal nares present Eyes: Sclera: sclerae normal Neck: Neck: supple Resp: Effort & Inspection: normal respiratory effort and able to speak in complete sentences Auscultation: clear to auscultation bilaterally Cardio: Rate: regular rate Rhythm: regular rhythm GI: Inspection: normal to inspection GI Palp: Yes Soft to palpation and No Tenderness to palpation present (GI) Auscultation: normal bowel sounds Rectal Exam: deferred Skin: General skin exam: normal color Neuro: Speech: normal speech Motor exam (neuro): 5/5 motor strength present throughout Extrem: General: normal to inspection Psych: Appearance: grossly normal Mental Status: mental status grossly normal Results Labs 08/25/24 12:06 08/25/24 12:06 Labs: Short CBC 08/25/24 Range/Units 12:06 WBC 4.8 (4.5-10.0) K/mm3 Hgb 10.9 L (14.0-18.0) g/dL Hct 33.0 L (42.0-52.0) % Plt Count 121 L D (150-375) k/mm3 [facility] 08/25/24 12:06 Sodium 125 L Potassium 2.9 L Chloride 93 L Carbon Dioxide 26 BUN 20 Creatinine 0.68 L Glucose 78 Calcium 7.5 L
--- NOTE | 2024-08-25 13:48 | S_PTH ---
PATIENT: Jose Manuel Kelsey LOC: [id number] U#:[id number] AGE/SX: 63/M ROOM: 315 RE08/27/[address]: Chandni Thomas MD : 1960 BED: 02 DIS: 09/13/2024 SPEC #: [id number] RECD: 08/28/24 07:54 STATUS: GHASSAN REAdriana #: [id number] BRIA: 08/25/24 13:[address]: Mehdi Ramon DEPT: [facility] Surgical RECD BY: Malathi Redding ENTERED: 08/28/24 07:54 SP TYPE: Surgical OTHR DR: Guadalupe BarriosMD Tissues: A - Gastric Biopsy Procedures: Hematoxylin and Eosin Stain Gross and Microscopic Level 4
[2024-08-25] MEDS: LIDOCAINE 1% PF INJ 5 ML VIAL 4 ML INFILTRATE (13:53)
--- NOTE | 2024-08-25 14:05 | SUR.OPER ---
See anesthesia charting for antibiotic given for the PEG tube placement.
--- NOTE | 2024-08-25 14:21 | ADMGEN ---
This patient, Jose Manuel Kelsey, was admitted to [facility] Surg Room 315-01. Patient/family oriented to hospital policies and general routines including ID bracelet, bed and alarms, visiting hours, pain management, procedures, bathroom and other care routines, personal items, smoking policy, room service/diet, and visiting hours. Information on how to activate the Rapid Response Team has been discussed. Patient/Family are encouraged to report perceived risks to care and to ask questions if they do not understand what they are told or what they should do.
--- NOTE | 2024-08-25 14:34 | P.HP_ITS ---
H&P: HPI History of Present Illness Date/Time: 08/25/24 14:34 Chief Complaint: Malnutrition Narrative: 63-year-old male past medical history of DVT, PE, anemia, adenocarcinoma of the cecum, malnutrition with poor oral intake who presented to the hospital for planned PEG tube being admitted after procedure. Patient states that he had a 60 lb weight loss in 3 months due to severe nausea and vomiting from chemot herapy. Patient is now so weak he has trouble ambulating. Patient states he did throw up dinner however he was able to tolerate dinner and his Carafate. After the GI procedure hospitalist team was consulted by GI for medical admission due to abnormal labs and hypotension. Blood work shows hemoglobin 10.9, sodium of 125, potassium 2.9, chloride of 93, calcium of 7.5. Review of Systems Review of Systems: 12 systems were reviewed and are negativ e except for as per HPI. 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, stage II A Perforated gastric ulcer (~01/2023) Colon polyps Neoplasm of ascending colon Osteoarthritis Anemia History of tobacco abuse Marijuana abuse, continuous used for pain control r/t arthritis Surgical History Surgical History (Updated 08/25/24 @ 15:48 by Maria D Griffin APRN) History of tonsillectomy History of abdominal surgery (~01/22/23) Extended right hemicolectomy with ileo transverse hand-sewn anastomosis, drainage of multiple right upper quadrant and perigastric abscesses, repair gastric antral perforation, omentoplasty H/O hemicolectomy (~01/22/23) Hepatic abscess (~01/2023) s/p percutaneus drainage Family History Family History Father Acute myocardial infarction, Onset Age: 58 Cancer, Onset Age: 58 unclear primary source, was metastatic at time of diagnosis and was shortly after discovered Hypertension Sibling Cancer brother, not close with family. unknown type. Hypertension Sibling Cancer brother, colon cancer. Grandparent Hypertension Cerebrovascular accident maternal gradfather Grandparent Hypertension Cerebrovascular accident maternal grandma Sibling Chronic obstructive pulmonary disease sister Sibling Chronic obstructive pulmonary disease sister Grandparent Hypertension paternal grandma Grandparent Hypertension paternal grandpa Social History Social History Social History: Currently lives in pop-out [employer] in [place]. Lives alone with dogs. . Elects family friend, Jamie Sands, as surrogate decision maker. Code Status: Full Code, requesting no prolonged ventilation or permanent G-tube. Okay with temporary NG/OG. Smoking packs per day: 3 Smoking cigarettes per day: 60.0 Years smoked: 45 Smoking pack-years: 135.00 Smoking status: Former smoker Tobacco type: cigarettes Second hand tobacco smoke exposure: No Alcohol intake: never Substance use: current Substance use type: marijuana Other substance usage details: every day Last use: yesterday Do You Feel Safe in your Home?: No Lack of Transportation: No Lack of Food: Never True Current Housing: I Have Housing Concerned About Future Housing: No Difficulty Paying Gas/Electric Bills: No Difficulty Paying for Meds: No Currently Unemployed: No Education: High School Diploma/GED Difficulty w/ Childcare or Family Care: No Living arrangements: alone Additional living arrangements comments: PT LIVES IN HIS [place]PER AT [place], USES FRIEND JAMIE'S ADDRESS Occupation/Education: retired Gender identity (if verbalized by the patient): Male Sexual Orientation (if Verbalized by the Patient): Straight or Heterosexual Spiritual care concerns: No Meds Home Medications and Allergies Home Medications ?Medication ?Instructions ?Recorded ?Confirmed ?Type dicyclomine 10 mg capsule 10 mg PO TID #12 caps 05/19/24 08/23/24 Rx ondansetron HCl 4 mg tablet 4 mg PO Q12H PRN nausea and 07/12/24 08/23/24 History vomiting pantoprazole 40 mg tablet,delayed 40 mg PO QAM #30 tabs 07/21/24 08/25/24 Rx release sucralfate 100 mg/mL oral 1 g (10 mL) PO TID #1,000 mL 07/21/24 08/23/24 Rx suspension (Carafate) promethazine 25 mg tablet See Rx Instructions .Route 08/01/24 08/23/24 Rx .COMPLEX #90 tabs megestrol 400 mg/10 mL (40 mg/mL) 400 mg PO BID 08/23/24 08/23/24 History oral suspension Allergies Allergy/AdvReac Type Severity Reaction Status Date / Time Penicillins Allergy Intermediate rash Verified 08/25/24 14:13 Vital Signs Vital Signs - 24 hr 08/25/24 12:34 08/25/24 12:43 08/25/24 13:14 Temperature 97.9 F Pulse Rate 69 Respiratory Rate 17 Blood Pressure 83/57 L 92/58 L 89/48 L Pulse Oximetry 99 Oxygen Delivery Room Air 08/25/24 13:50 08/25/24 14:00 08/25/24 14:10 Temperature Pulse Rate 69 70 75 Respiratory Rate 16 20 19 Blood Pressure 102/67 106/63 100/59 L Pulse Oximetry 100 94 94 Oxygen Delivery Room Air Room Air Room Air Exam Narrative: General: Chronically ill, no acute distress, cachectic HEENT: normocephalic, atraumatic. Mucous membranes moist. EOMI, PERRLA, bilateral sclera anicteric, no conjunctival injection. Neck supple without JVD, lymphadenopathy, or bruit. Respiratory: clear to ascultation bilaterally. No rales/rhonic/wheezes. Cardiovascular: Regular rate and rhythm, normal S1-S2 upon ascultation. No murmurs, rubs, or clicks. PMI is nondisplaced, capillary refill less than 3 second. Abdomen: Soft, round, no pulsatile masses, nondistended and nontender. No rebound, no guarding. No CVA tenderness, no hepatosplenomegaly. Bowel sounds present to all four quadrants. No high pitch or tinkling sounds, resonant to percussion. G-tube Extremities: No cyanosis, clubbing, or edema present. Pulses are palpable 2/2. Active ROM to all four extremities. Neuro: Alert and orientated x 4. PERRLA. Cranial nerves 2-12 intact without focal deficit. Skin: Warm, dry, and intact, without rash, erythema, or lesion. Psych: pleasant, cooperative, normal speech, normal affect, no hallucinations, no dysarthia H&P: Results Labs Labs: Short CBC 08/25/24 Range/Units 12:06 WBC 4.8 (4.5-10.0) K/mm3 Hgb 10.9 L (14.0-18.0) g/dL Hct 33.0 L (42.0-52.0) % Plt Count 121 L D (150-375) k/mm3 [facility] 08/25/24 12:06 Sodium 125 L Potassium 2.9 L Chloride 93 L Carbon Dioxide 26 BUN 20 Creatinine 0.68 L Glucose 78 Calcium 7.5 L Assessment and Plan Assessment and plan (1) Status post insertion of percutaneous endoscopic gastrostomy (PEG) tube: Code(s): Z93.1 - Gastrostomy status Status: Acute Assessment and Plan: On 08/25/2024 by GI G-tube placed for severe malnutrition. Patient may still take in oral intake in addition to tube feeds Okay these G-tube for feeds and medications (2) Hypokalemia: Code(s): E87.6 - Hypokalemia Status: Acute Assessment and Plan: Replete as needed Repeat BMP in 4 hours overnight (3) Hyponatremia: Code(s): E87.1 - Hypo-osmolality and hyponatremia Status: Acute Assessment and Plan: Five hundred normal saline bolus Followed by gentle hydration BMP in 4 hours (4) Hypocalcemia: Code(s): E83.51 - Hypocalcemia Status: Acute Assessment and Plan: 2 g calcium repleted BMP in the morning (5) Hypotension: Code(s): I95.9 - Hypotension, unspecified Status: Acute Assessment and Plan: Likely due to dehydration and electrolyte imbalance Replete calcium Small bolus and IVF (6) Protein-calorie malnutrition, severe: Code(s): E43 - Unspecified severe protein-calorie malnutrition Status: Acute Assessment and Plan: Encourage oral and tube feeds Nutrition consulted Continue Megasetrol Continue home Reglan and Carafate PT and OT (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: Code(s): Z79.01 - care home (current) use of anticoagulants Status: Acute Assessment and Plan: History of DVT and PE Does not appear to be on current anticoagulation (8) Adenocarcinoma of cecum: Onset Date: ~01/2023 Code(s): C18.0 - Malignant neoplasm of cecum Status: Chronic Assessment and Plan: See plan above Quality VTE Prophylaxis VTE prophylaxis: mechanical ordered and pharmacologic ordered Hospitalist MIPS Advance Care Plan I have confirmed that the patient's Advanced Care Plan is present, code status is documented, or surrogate decision maker is listed in patient medical record.: Yes Medication Reconciliation I have utilized all available resources to obtain, update and review the patients current medications (includes all prescriptions, OTC, herbals, cannabis, and nutritional supplements).: Yes
--- NOTE | 2024-08-25 15:20 | PCDIET ---
Tube feeding recommendations: Continuous tube feeding of Jevity 1.5 at 20 ml/hr advance by 10 ml q 4 hours to goal rate of 40 ml/hr. Flush 100 ml q 4 hours. Total Nutrition: 1320 kcal/56 gm protein/669 ml water. Meeting 99% kcal needs at 35 kcal/kg and 92% protein needs at 1.6-1.8 gm/kg. Bolus feedings: 237 ml (1 can) 4 x daily with flush 100 ml after feedings. Total Nutrition: 1422 kcal/61 gm protein/720 ml water. Meeting 100% kcal needs at 35 kcal/kg and 100% protein needs at 1.6-1.8 gm/kg.
[2024-08-25] MEDS: SUCRALFATE SUSP 100 MG/ML 10 ML UDC 1000 MG FEED TUBE ×2 (16:43→20:32)
[2024-08-25] MEDS: POTASSIUM CHLORIDE 20 MEQ PACKET (FOR LIQUID) 40 MEQ FEED TUBE (16:43)
[2024-08-25] MEDS: MEGESTROL ACETATE (*CHEMO) ORAL SUSP 40 MG/ML SYR 400 MG PO (16:43)
[2024-08-25] MEDS: CALCIUM GLUC 2,000 MG/NS 100ML 2,000 MG/100 ML BAG 100 MG IVPB (16:45)
[2024-08-25] MEDS: POTASSIUM CHLORIDE INJ 40 MEQ in SODIUM CHLORIDE 0.9% IV 500 ML 130 MEQ IVPB (16:49)
[2024-08-25] MEDS: SODIUM CHLORIDE 0.9% IV 500 ML IV CONT (17:01)
[2024-08-25] MEDS: DOCUSATE SODIUM 100 MG CAPSULE PO (17:02)
[2024-08-25] MEDS: SODIUM CHLORIDE 0.9% IV 1,000 ML 75 ML IV CONT (17:26)
[2024-08-25 18:37] LABS: Anion Gap 4 mmol/L (4-12); Blood Urea Nitrogen 18 mg/dL (9-20); Calcium 8.3 mg/dL (8.4-10.2); Carbon Dioxide 27 mmol/L (22-30); Chloride 97 mmol/L (98-107); Estimated CRCL calculation 46 ml/min; Estimated Glomerular Filt Rate > 60; Glucose 104 mg/dL (65-110); Potassium 3.4 mmol/L (3.4-5.0); Sodium 128 mmol/L (137-145)
[2024-08-25] MEDS: PANTOPRAZOLE 40 MG TABLET PO (20:32)
--- NOTE | ~2024-08-26 | XR_ITS ---
Exam: Abdomen 1V HISTORY: small bowel obstruction COMPARISON: 09/01/2024 TECHNIQUE: Supine images of the lower chest and upper abdomen FINDINGS: Redemonstration of free intraperitoneal air, unchanged from prior. Redemonstration of a percutaneous gastrostomy tube projecting minimally into the left of midline. Redemonstration of a dilated loop of small bowel within the left upper quadrant measuring 5.6 cm in c ranial to caudal dimension. Nasogastric tube extends into the left upper quadrant, coursing adjacent to the percutaneous gastrost loyd tube, presumably within the stomach. IMPRESSION: As above Reviewed, dictated and finalized at location A. IMPRESSION: As above
--- NOTE | ~2024-08-26 | XR_ITS ---
EXAMINATION: XR abdomen gastric tube insert DATE: 09/01/2024 18:52 INDICATION: Placement of nasogastric tube TECHNIQUE: A supine view of the abdomen and lower chest was obtained for evaluation of feeding tube placement. COMPARISON: 09/01/2024 FINDINGS: Interval placement of a nasogastric tube with distal tip in proximal side port in the gastric body th e stomach. There is also a previous studies gastrostomy tube bulb in the more distal body the stomach . The previously seen dilated gas-filled loops of small bowel have decreased in caliber now without f rank dilation. There is some free intraperitoneal gas in the abdomen as well as more commonly below t he right hemidiaphragm. Mild streaky opacities at the medial left lung base which could represent ate lectasis or less likely pneumonia. No pleural effusion. Heart size is normal. IMPRESSION: 1. Nasal gastric tube tip in proximal side port in the body the stomach along with a percutaneous gas trostomy tube bulb. 2. Persistent free intraperitoneal gas as noted on the CT from one day prior which may be related to recent PEG tube placement versus perforated viscus. 3. Improving small bowel obstruction. 4. Opacities at the medial left lung base which could represent atelectasis or pneumonia. Reviewed, dictated and finalized at location A. IMPRESSION: 1. Nasal gastric tube tip in proximal side port in the body the stomach along w ith a percutaneous gastrostomy tube bulb. 2. Persistent free intraperitoneal gas as noted on the CT from one day prior wh ich may be related to recent PEG tube placement versus perforated viscus. 3. Improving small bowel obstruction. 4. Opacities at the medial left lung base which could represent atelectasis or pneumonia.
--- NOTE | ~2024-08-26 | CT_ITS ---
EXAM: CT chest abdomen pelvis wo con - 08/31/2024 12:50 CDT HISTORY: 63 years old Male with ?SBO TECHNIQUE: Multidetector CT of the chest, abdomen and pelvis was performed without intravenous contra st Coronal and sagittal reformats were also provided for review. Automatic exposure control was used for this study. COMPARISON: 07/31/2024 FINDINGS: CHEST: VISUALIZED LOWER NECK: Thyroid gland appears normal. No supraclavicular lymphadenopathy. AIRWAYS: Patent centrally. LUNGS and PLEURA: Scattered areas of tree-in-bud opacities in both lungs, concerning for pneumonia. S mall bilateral pleural effusions. MEDIASTINUM and MAURICE: No evidence of mediastinal hematoma. No lymphadenopathy. HEART AND PERICARDIUM: Heart is normal in size. No pericardial effusion. CHEST WALL: No axillary lymphadenopathy. Chest wall appears normal. VASCULATURE: Thoracic aorta and pulmonary arteries are normal in caliber. ABDOMEN and PELVIS: LIVER: Within normal limits. GALLBLADDER: No calcified gallstones. BILE DUCTS: Normal caliber. SPLEEN: Within normal limits. PANCREAS: Within normal limits. ADRENAL GLANDS: Within normal limits. KIDNEYS and URETERS: No hydronephrosis or hydroureter. No evidence for nephroureterolithiasis. URINARY BLADDER: Within normal limits. STOMACH and BOWEL: Multiple severely dilated loops of small bowel are seen containing air and fluid w ith transition point in the right upper quadrant and collapse of distal bowel. Findings are compatibl e with small bowel obstruction. REPRODUCTIVE ORGANS: Within normal limits. MESENTERY/PERITONEAL CAVITY: No pneumoperitoneum seen. LYMPH NODES: No abdominal or pelvic lymphadenopathy. ABDOMINAL WALL: Diffuse fat stranding in the subcutaneous soft tissue, likely anasarca. VASCULATURE: Scattered atherosclerotic disease. MUSCULOSKELETAL, THORACIC AND LUMBAR SPINE: No acute fracture is identified in the chest, abdomen or pelvis. No fracture of the thoracic or the lumbar spine. IMPRESSION: 1. Findings compatible with small bowel obstruction, as detailed above. 2. Pneumoperitoneum. This can be related to G-tube placement if the procedure was performed recently . Correlate clinically and with physical examination to rule out pneumoperitoneum secondary to perfor ated viscus. 3. Findings concerning for pneumonia, as detailed above. Reviewed, dictated and finalized at location A. IMPRESSION: 1. Findings compatible with small bowel obstruction, as detailed above. 2. Pneumoperitoneum. This can be related to G-tube placement if the procedure was performed recently. Correlate clinically and with physical examination to r ule out pneumoperitoneum secondary to perforated viscus. 3. Findings concerning for pneumonia, as detailed above.
--- NOTE | ~2024-08-26 | XR_ITS ---
XR abdomen/kub 1V 09/05/2024 06:10 Indication: Small bowel obstruction Procedure: KUB Comparison: 09/04/2024 Findings: Dilated small bowel present throughout the abdomen with residual contrast in the colon whic h is moderately distended. There is an NG tube present in the stomach. Impression: 1: Moderately dilated small bowel with contrast throughout the colon. Differential diagnosis includes ileus and partial small bowel obstruction. Reviewed, dictated and finalized at location B. Impression: 1: Moderately dilated small bowel with contrast throughout the colon. Different ial diagnosis includes ileus and partial small bowel obstruction.
--- NOTE | ~2024-08-26 | XR_ITS ---
EXAM: XR sm bowel follow through [facility] DATE: 09/03/2024 21:05 HISTORY: SBO . COMPARISON: X-ray obstructive series 09/02/2024; CT cap 09/02/2024 and 08/31/2024. FINDINGS: Corrections Corporal views demonstrate multiple loops of markedly dilated small bowel measuring up to 8.1 cm. NG tube, tip over the stomach, side port at the GE junction. G-tube, in good position over the s tomach. Following instillation of 360 mL Gastrografin via the G-tube, contrast fills a normal-appeari ng stomach and multiple loops of dilated small bowel. No definite large bowel is visualized during th e examination, followed out to 4 hours, however determination is limited by altered surgical anatomy and obscuration by overlying loops of contrast-filled small bowel. IMPRESSION: Marked diffuse small bowel dilation. Contrast proceeded through small bowel in an antegrade fashion b ut did not appear to reach the large bowel by the 4 hour images. This may represent high-grade partia l or complete obstruction. NG tube side port terminates at the GE junction, consider advancing. Recommend 24 hour follow-up abdominal radiography (at 13:30 on 08/27/2024). Reviewed, dictated and finalized at location K. IMPRESSION: Marked diffuse small bowel dilation. Contrast proceeded through small bowel in an antegrade fashion but did not appear to reach the large bowel by the 4 hour images. This may represent high-grade partial or complete obstruction. NG tube side port terminates at the GE junction, consider advancing. Recommend 24 hour follow-up abdominal radiography (at 13:30 on 08/27/2024).
--- NOTE | ~2024-08-26 | XR_ITS ---
Exam: Abdomen 1V HISTORY: NG tube placement COMPARISON: Reference is made to a noncontrast enhanced CT examination of the abdomen and pelvis date d 08/31/2024 TECHNIQUE: Supine images of the lower chest and upper abdomen FINDINGS: Percutaneous gastrostomy tube is identified projecting just to the left of midline within the upper a bdomen. No nasogastric tube is identified on the submitted image. IMPRESSION: No nasogastric tube on the submitted image, as detailed above. Reviewed, dictated and finalized at location A.
--- NOTE | ~2024-08-26 | XR_ITS ---
EXAMINATION: XR abdomen/kub 1V DATE: 09/04/2024 11:01 INDICATION: Small bowel obstruction TECHNIQUE: A supine view of the abdomen on 2 radiographs was obtained. COMPARISON: 09/03/2024 FINDINGS: Nasogastric tube tip in proximal side port in the body the stomach. Percutaneous gastrostomy tube bul b projects over the distal stomach. There is still a large amount of contrast scattered throughout mu ltiple persistently dilated loops of small bowel. Contrast is also seen extending through the colon t o the rectum. Heart size is normal. No pleural effusion. IMPRESSION: 1. Persistent large amount of oral contrast material in the colon and several persistent dilated loop s of small bowel suggesting persistent small bowel obstruction. Reviewed, dictated and finalized at location A. IMPRESSION: 1. Persistent large amount of oral contrast material in the colon and several p ersistent dilated loops of small bowel suggesting persistent small bowel obstru ction.
--- NOTE | ~2024-08-26 | XR_ITS ---
EXAMINATION: XR abdomen gastric tube rechec DATE: 09/04/2024 08:27 INDICATION: Nasogastric tube repositioning TECHNIQUE: A supine view of the abdomen and lower chest was obtained for evaluation of feeding tube placement. COMPARISON: CT dated 08/31/2024 FINDINGS: Nasogastric tube tip in proximal side port in the body the stomach. There is also a percutaneous susanna rostomy tube projecting over the more distal gastric body. Opacities at the bilateral lung bases whic h could represent atelectasis or pneumonia. Heart size is normal. Persistent pneumoperitoneum with Ri gler's sign along side the bowel in the right upper quadrant and small of gas below the right hemidia phragm which may relate to the recent percutaneous gastrostomy tube placement. IMPRESSION: 1. Nasogastric tube tip in proximal side port in the body of the stomach along with a percutaneous ga strostomy tube. 2. Persistent pneumoperitoneum potentially related to recent percutaneous gastrostomy tube placement. 3. Opacities at the bilateral lung bases which could represent atelectasis or pneumonia. Reviewed, dictated and finalized at location A. IMPRESSION: 1. Nasogastric tube tip in proximal side port in the body of the stomach along with a percutaneous gastrostomy tube. 2. Persistent pneumoperitoneum potentially related to recent percutaneous gastr ostomy tube placement. 3. Opacities at the bilateral lung bases which could represent atelectasis or p neumonia.
--- NOTE | ~2024-08-26 | XR_ITS ---
CHEST RADIOGRAPH CLINICAL HISTORY: CHECK PICC LINE PLACEMENT . COMPARISON: 02/18/2023 TECHNIQUE: Single portable view of the chest. FINDINGS Nasogastric tube extends below the left hemidiaphragm presumably within the stomach. Left upper extremity PICC line identified with its tip projecting over the proximal right atrium. The remainder of the cardiomediastinal silhouette is otherwise unremarkable. The lungs are clear. IMPRESSION: Left upper extremity PICC line in good position and ready for immediate use. Reviewed, dictated and finalized at location A.
[2024-08-26] MEDS: PROMETHAZINE HCL 25 MG TABLET BY MOUTH ×2 (01:20→09:16)
--- NOTE | 2024-08-26 01:38 | PC.NURSE ---
0025 patient vomited, bile looking, feeding tube at 20ml/hr. Maria D Griffin notified at 0045, by text, no response. called per direction of revenue cycle manager r/t timing of after 0000. New verbal order from Dr. Thomas ordered to stop tube feeding. Maria D Griffin texted different orders after stopping the tube feed, she was notified that feeding stopped per Dr. Thomas. revenue cycle manager also notifed of situation. Patient had PRN Phenergan orders, but pt refused to take medication.
--- NOTE | 2024-08-26 03:24 | PC.NURSE ---
patient refusing any type of anti emetic offered, vomited 2nd time as of this hour. states it will make me vomit more states he does this every night and nothing helps emesis noted to be cage colored, fluids continue, feeding stopped at 0128 as ordered.
[2024-08-26] MEDS: SUCRALFATE SUSP 100 MG/ML 10 ML UDC 1000 MG FEED TUBE (05:53)
[2024-08-26] MEDS: SODIUM CHLORIDE 0.9% IV 1,000 ML 75 ML IV CONT ×2 (05:53→21:18)
[2024-08-26 06:00] VITALS: BP 95/74; PULSE 83; RESP 20; TEMP 36.9; O2SAT 99
[2024-08-26 06:04] LABS: Hematocrit 38.5 % (42.0-52.0); Hemoglobin 12.7 g/dL (14.0-18.0); Immature Granulocyte Percent A 0.3 % (0-0.5); Lymphocytes Absolute Auto 0.91 K/mm3 (0.9-3.2); Mean Corpuscular HGB Conc 33.0 g/dl (32-36); Mean Corpuscular Hemoglobin 29.4 pg (26-34); Mean Corpuscular Volume 89.1 fl (80-100); Nucleated Red Blood Cells Absolute Auto 0.000 K/mm3 (0.0-0.012); Nucleated Red Blood Cells Perc 0.0 % (0.0-0.2); Platelet Count Result 168 k/mm3 (150-375); Red Blood Count 4.32 M/mm3 (4.6-6.20); White Blood Count 5.9 K/mm3 (4.5-10.0)
[2024-08-26 06:24] LABS: Anion Gap 5 mmol/L (4-12); Blood Urea Nitrogen 17 mg/dL (9-20); Calcium 8.2 mg/dL (8.4-10.2); Carbon Dioxide 32 mmol/L (22-30); Chloride 94 mmol/L (98-107); Estimated CRCL calculation 47 ml/min; Estimated Glomerular Filt Rate > 60; Glucose 127 mg/dL (65-110); Potassium 3.3 mmol/L (3.4-5.0); Sodium 131 mmol/L (137-145)
[2024-08-26] MEDS: MEGESTROL ACETATE (*CHEMO) ORAL SUSP 40 MG/ML SYR 400 MG PO ×2 (09:17→18:06)
[2024-08-26] MEDS: DOCUSATE SODIUM 100 MG CAPSULE PO ×2 (09:17→18:06)
[2024-08-26] MEDS: PANTOPRAZOLE 40 MG TABLET PO ×2 (09:17→21:19)
[2024-08-26] MEDS: ENOXAPARIN 30 MG/0.3 ML SYRINGE SUB-Q (09:17)
[2024-08-26] MEDS: METOCLOPRAMIDE HCL INJ 10 MG/2 ML VIAL (10:32)
--- NOTE | 2024-08-26 11:04 | P.PNGI_ITS ---
Progress Note: A&P Assessment and Plan (1) Status post insertion of percutaneous endoscopic gastrostomy (PEG) tube: Code(s): Z93.1 - Gastrostomy status Status: Acute Assessment and Plan: Following successful PEG placement yesterday, the patient continues to experience poor feeding tolerance, evidenced by large gastric residuals and retained contents. Given the failure of outpatient ondansetron, we will tr ansition to intravenous metoclopramide, aiming for its prokinetic benefits to improve gastric emptying. Phenergan will be maintained as a PRN antiemetic only. The patient will be advanced back to a clear liquid diet as we monitor his response. Subjective Date/time seen: 08/26/24 11:04 Interval history: The patient continued to have nausea, did not tolerate a full liquid diet and had significant residuals through his PEG tube, of around 1600 cc. Exam Narrative: Cachectic appearance, not acutely distressed, nauseated. Abdomen: Soft, tender in both lower quadrants ( this has been happening for several months ), nondistended, no rebound. Rest of the exam unchanged. Objective Data Vital Signs Vital Signs: Vital Signs - 24 hr 08/25/24 12:34 08/25/24 12:43 08/25/24 13:14 Temperature 97.9 F Pulse Rate 69 Respiratory Rate 17 Blood Pressure 83/57 L 92/58 L 89/48 L Pulse Oximetry 99 Oxygen Delivery Room Air 08/25/24 13:50 08/25/24 14:00 08/25/24 14:10 Temperature Pulse Rate 69 70 75 Respiratory Rate 16 20 19 Blood Pressure 102/67 106/63 100/59 L Pulse Oximetry 100 94 94 Oxygen Delivery Room Air Room Air Room Air 08/25/24 15:18 08/25/24 15:43 08/25/24 21:41 Temperature 98 F 98.2 F Pulse Rate 74 93 Respiratory Rate 14 18 Blood Pressure 90/58 L 100/66 Pulse Oximetry 100 Oxygen Delivery Room Air 08/26/24 06:00 08/26/24 07:27 Temperature 98.4 F Pulse Rate 83 Respiratory Rate 20 Blood Pressure 95/74 L Pulse Oximetry 99 Oxygen Delivery Room Air Intake/Output Intake/Output: Intake & Output 08/23/24 08/24/24 08/25/24 08/26/24 23:59 23:59 23:59 23:59 Intake Total 320 1199.8 Output Total 50 751 Balance 270 448.8 Meds/Results Medications: Active Medications Generic Name Dose Route Start Last Admin Trade Name Freq PRN Reason Stop Dose Admin Acetaminophen 650 mg 08/25/24 14:38 Acetaminophen 325 Mg Tablet PO Q4H PRN Mild Pain (1-3) or Fever Hydrocodone Bitart/Acetaminophen 1 tab 08/25/24 14:38 Hydrocodone/Acetaminophen (*Crx) 5-325 Mg Tablet PO Q4H PRN Moderate Pain (4-6) Docusate Sodium 100 mg 08/25/24 17:00 08/26/24 09:17 Docusate Sodium 100 Mg Capsule PO 100 mg BID KULDIP Administration Enoxaparin Sodium 30 mg 08/26/24 09:00 08/26/24 09:17 Enoxaparin 30 Mg/0.3 Ml Syringe SUB-Q 30 mg DAILY KULDIP Administration Sodium Chloride 1,000 mls @ 75 mls/hr 08/25/24 15:45 08/26/24 05:53 Normal Saline Iv IV CONT 75 mls/hr .[id number] KULDIP Administration Megestrol Acetate 400 mg 08/25/24 17:00 08/26/24 09:17 Megestrol Acetate (*Chemo) Oral Susp 40 Mg/Ml Syr PO 400 mg BID KULDIP Administration Metoclopramide HCl 10 mg 08/26/24 10:10 Metoclopramide Hcl Inj 10 Mg/2 Ml Vial IV PUSH Q8HR KULDIP Morphine Sulfate 2 mg 08/25/24 14:38 Morphine Sulfate (*Crx) 2 Mg/Ml Inj IV PUSH Q4H PRN Pain Rated 7-10 Pantoprazole Sodium 40 mg 08/25/24 21:00 08/26/24 09:17 Pantoprazole 40 Mg Tablet PO 40 mg Q12HR KULDIP Administration Promethazine HCl 25 mg 08/25/24 23:15 08/26/24 09:16 Promethazine Hcl 25 Mg Tablet BY MOUTH 25 mg Q6H PRN Administration NAUSEA/VOMITING Labs Labs: Laboratory Results - last 24 hr 08/25/24 08/25/24 08/26/24 12:06 18:05 05:35 WBC 4.8 5.9 RBC 3.66 L 4.32 L Hgb 10.9 L 12.7 L Hct 33.0 L 38.5 L MCV 90.2 89.1 MCH 29.8 29.4 MCHC 33.0 33.0 RDW 17.3 H 17.7 H Plt Count 121 L D 168 MPV 8.6 9.5 Immature Gran % (Auto) 0.4 0.3 Neut % (Auto) 68.6 78.8 H Lymph % (Auto) 23.3 15.3 L Charlton % (Auto) 7.5 5.6 Eos % (Auto) 0.2 0.0 Baso % (Auto) 0.0 L 0.0 L Lymph # (Auto) 1.12 0.91 Charlton # (Auto) 0.4 0.3 Eos # (Auto) 0.0 0.0 Baso # (Auto) 0.0 0.0 Abs Immat Gran (auto) 0.02 0.02 Absolute Neuts (auto) 3.3 4.7 Absolute Nucleated RBC 0.000 0.000 Nucleated RBC % 0.0 0.0 PT 15.2 H INR 1.2 Sodium 125 L 128 L 131 L Potassium 2.9 L 3.4 3.3 L Chloride 93 L 97 L 94 L Carbon Dioxide 26 27 32 H Anion Gap 6 4 5 BUN 20 18 17 Creatinine 0.68 L 0.75 0.73 Estim Creat Clear Calc 50 46 47 Estimated GFR > 60 > 60 > 60 Glucose 78 104 127 H Calcium 7.5 L 8.3 L 8.2 L
--- NOTE | 2024-08-26 13:08 | P.PNIM_ITS ---
Progress Note: A&P Assessment and Plan (1) Status post insertion of percutaneous endoscopic gastrostomy (PEG) tube: Code(s): Z93.1 - Gastrostomy status Status: Acute Assessment and Plan: On 08/25/2024 by GI G-tube placed for severe malnutrition. Patient may still take in oral intake in addition to tube feeds Okay these G-tube for feeds and medications (2) Hypokalemia: Code(s): E87.6 - Hypokalemia Status: Acute Assessment and Plan: Replete as needed K:3.3 will give potassium (3) Hyponatremia: Code(s): E87.1 - Hypo-osmolality and hyponatremia Status: Acute Assessment and Plan: IVF improving monitor BMP (4) Hypocalcemia: Code(s): E83.51 - Hypocalcemia Status: Acute Assessment and Plan: improving (5) Hypotension: Code(s): I95.9 - Hypotension, unspecified Status: Acute Assessment and Plan: Likely due to dehydration and electrolyte imbalance Replete calcium Small bolus and IVF (6) Protein-calorie malnutrition, severe: Code(s): E43 - Unspecified severe protein-calorie malnutrition Status: Acute Assessment and Plan: Encourage oral and tube feeds Nutrition consulted Continue Megasetrol Continue home Reglan and Carafate PT and OT (7) alf (current) use of anticoagulants: Code(s): Z79.01 - lobsterman (current) use of anticoagulants Status: Acute Assessment and Plan: History of DVT and PE Does not appear to be on current anticoagulation (8) Adenocarcinoma of cecum: Onset Date: ~01/2023 Code(s): C18.0 - Malignant neoplasm of cecum Status: Chronic Assessment and Plan: Ct on 07/31/24 Findings within the chest, abdomen and pelvis which demonstrate a positive response to treatment See plan above (9) Nausea and vomiting in adult: Code(s): R11.2 - Nausea with vomiting, unspecified Status: Acute Assessment and Plan: started on reglan scheduled. Gi team on board [facility] to monitor will get UDS Subjective Date/time seen: 08/26/24 13:08 Interval history: per HPi: 63-year-old male past medical history of DVT, PE, anemia, adenocarcinoma of the cecum, malnutrition with poor oral intake who presented to the hospital for planned PEG tube being admitted after procedure. Patient states that he had a 60 lb weight loss in 3 months due to severe nausea and vomiting from chemotherapy. Patient is now so weak he has trouble ambulating. Patient states he did throw up dinner however he was able to tolerate dinner and his Carafate. After the GI procedure hospitalist team was consulted by GI for medical admission due to abnormal labs and hypotension. Blood work shows hemoglobin 10.9, sodium of 125, potassium 2.9, chloride of 93, calcium of 7.5. 08/26/24 Patient was seen and examined at bedside. he is feeling nauseated. underwent pegtube placement but his symptoms has not been improving. Gi team on board added Timur CHRISTIANSEN. will continue to monitor Review of Systems Review of Systems: 12 systems were reviewed and are negativ e except for as per HPI. Exam Narrative: General: Chronically ill, no acute distress, cachectic HEENT: normocephalic, atraumatic. Mucous membranes moist. EOMI, PERRLA, bilateral sclera anicteric, no conjunctival injection. Neck supple without JVD, lymphadenopathy, or bruit. Respiratory: clear to ascultation bilaterally. No rales/rhonic/wheezes. Cardiovascular: Regular rate and rhythm, normal S1-S2 upon ascultation. No murmurs, rubs, or clicks. PMI is nondisplaced, capillary refill less than 3 second. Abdomen: Soft, round, no pulsatile masses, nondistended and nontender. No rebound, no guarding. No CVA tenderness, no hepatosplenomegaly. Bowel sounds present to all four quadrants. No high pitch or tinkling sounds, resonant to percussion. G-tube in place Extremities: No cyanosis, clubbing, or edema present. Pulses are palpable 2/2. Active ROM to all four extremities. Neuro: Alert and orientated x 4. PERRLA. Cranial nerves 2-12 intact without focal deficit. Skin: Warm, dry, and intact, without rash, erythema, or lesion. Psych: pleasant, cooperative, normal speech, normal affect, no hallucinations, no dysarthia Objective Data Vital Signs Vital Signs: Vital Signs - 24 hr 08/25/24 13:14 08/25/24 13:50 08/25/24 14:00 Temperature Pulse Rate 69 70 Respiratory Rate 16 20 Blood Pressure 89/48 L 102/67 106/63 Pulse Oximetry 100 94 Oxygen Delivery Room Air Room Air 08/25/24 14:10 08/25/24 15:18 08/25/24 15:43 Temperature 98 F Pulse Rate 75 74 Respiratory Rate 19 14 Blood Pressure 100/59 L 90/58 L Pulse Oximetry 94 100 Oxygen Delivery Room Air Room Air 08/25/24 21:41 08/26/24 06:00 08/26/24 07:27 Temperature 98.2 F 98.4 F Pulse Rate 93 83 Respiratory Rate 18 20 Blood Pressure 100/66 95/74 L Pulse Oximetry 99 Oxygen Delivery Room Air Intake/Output Intake/Output: Intake & Output 08/23/24 08/24/24 08/25/24 08/26/24 23:59 23:59 23:59 23:59 Intake Total 320 1199.8 Output Total 50 751 Balance 270 448.8 Meds/Results Medications: Active Medications Generic Name Dose Route Start Last Admin Trade Name Freq PRN Reason Stop Dose Admin Acetaminophen 650 mg 08/25/24 14:38 Acetaminophen 325 Mg Tablet PO Q4H PRN Mild Pain (1-3) or Fever Hydrocodone Bitart/Acetaminophen 1 tab 08/25/24 14:38 Hydrocodone/Acetaminophen (*Crx) 5-325 Mg Tablet PO Q4H PRN Moderate Pain (4-6) Docusate Sodium 100 mg 08/25/24 17:00 08/26/24 09:17 Docusate Sodium 100 Mg Capsule PO 100 mg BID KULDIP Administration Enoxaparin Sodium 30 mg 08/26/24 09:00 08/26/24 09:17 Enoxaparin 30 Mg/0.3 Ml Syringe SUB-Q 30 mg DAILY KULDIP Administration Sodium Chloride 1,000 mls @ 75 mls/hr 08/25/24 15:45 08/26/24 05:53 Normal Saline Iv IV CONT 75 mls/hr .[id number] KULDIP Administration Megestrol Acetate 400 mg 08/25/24 17:00 08/26/24 09:17 Megestrol Acetate (*Chemo) Oral Susp 40 Mg/Ml Syr PO 400 mg BID KULDIP Administration Metoclopramide HCl 10 mg 08/26/24 10:10 08/26/24 11:28 Metoclopramide Hcl Inj 10 Mg/2 Ml Vial IV PUSH Not Given Q8HR [facility] Morphine Sulfate 2 mg 08/25/24 14:38 Morphine Sulfate (*Crx) 2 Mg/Ml Inj IV PUSH Q4H PRN Pain Rated 7-10 Pantoprazole Sodium 40 mg 08/25/24 21:00 08/26/24 09:17 Pantoprazole 40 Mg Tablet PO 40 mg Q12HR [facility] Administration Promethazine HCl 25 mg 08/25/24 23:15 08/26/24 09:16 Promethazine Hcl 25 Mg Tablet BY MOUTH 25 mg Q6H PRN Administration NAUSEA/VOMITING Labs Labs: Laboratory Results - last 24 hr 08/25/24 08/26/24 18:05 05:35 WBC 5.9 RBC 4.32 L Hgb 12.7 L Hct 38.5 L MCV 89.1 MCH 29.4 MCHC 33.0 RDW 17.7 H Plt Count 168 MPV 9.5 Immature Gran % (Auto) 0.3 Neut % (Auto) 78.8 H Lymph % (Auto) 15.3 L Christian % (Auto) 5.6 Eos % (Auto) 0.0 Baso % (Auto) 0.0 L Lymph # (Auto) 0.91 Christian # (Auto) 0.3 Eos # (Auto) 0.0 Baso # (Auto) 0.0 Abs Immat Gran (auto) 0.02 Absolute Neuts (auto) 4.7 Absolute Nucleated RBC 0.000 Nucleated RBC % 0.0 Sodium 128 L 131 L Potassium 3.4 3.3 L Chloride 97 L 94 L Carbon Dioxide 27 32 H Anion Gap 4 5 BUN 18 17 Creatinine 0.75 0.73 Estim Creat Clear Calc 46 47 Estimated GFR > 60 > 60 Glucose 104 127 H Calcium 8.3 L 8.2 L Quality VTE Prophylaxis VTE prophylaxis: mechanical ordered and pharmacologic ordered
[2024-08-26 14:00] VITALS: BP 102/67; PULSE 88; RESP 20; TEMP 36.4; O2SAT 100
[2024-08-26] MEDS: CALCIUM CARBONATE (TUMS) 500 MG (200 MG ELEMENTAL) FEED TUBE ×2 (14:32→21:19)
--- NOTE | 2024-08-26 14:35 | WPDANESPN ---
Anes - Prog Note Post-Op Date/Time: 08/26/24 14:35 Cardiovascular status: normal Respiratory status: normal Airway patency: baseline Mental status: baseline Post-Op hydration status: other (poor oral intake) Vital Signs: Last Vital Signs Temp 36.4 C L 08/26/24 14:00 Pulse 88 08/26/24 14:00 Resp 20 08/26/24 14:00 BP 102/67 08/26/24 14:00 Pulse Ox 100 08/26/24 14:00 O2 Del Method Room Air 08/26/24 07:27 Pain Score (VAS): 02/17 I/O: Intake & Output 08/25/24 08/26/24 08/26/24 23:59 07:59 15:59 Intake Total 220 1079.8 120 Output Total 50 451 300 Balance 170 628.8 -180 Laboratory Tests 08/26/24 05:35 08/26/24 05:35 08/25/24 08/26/24 18:05 05:35 WBC 5.9 RBC 4.32 L Hgb 12.7 L Hct 38.5 L MCV 89.1 MCH 29.4 MCHC 33.0 RDW 17.7 H Plt Count 168 MPV 9.5 Immature Gran % (Auto) 0.3 Neut % (Auto) 78.8 H Lymph % (Auto) 15.3 L Hawkins % (Auto) 5.6 Eos % (Auto) 0.0 Baso % (Auto) 0.0 L Lymph # (Auto) 0.91 Hawkins # (Auto) 0.3 Eos # (Auto) 0.0 Baso # (Auto) 0.0 Abs Immat Gran (auto) 0.02 Absolute Neuts (auto) 4.7 Absolute Nucleated RBC 0.000 Nucleated RBC % 0.0 Sodium 128 L 131 L Potassium 3.4 3.3 L Chloride 97 L 94 L Carbon Dioxide 27 32 H Anion Gap 4 5 BUN 18 17 Creatinine 0.75 0.73 Estim Creat Clear Calc 46 47 Estimated GFR > 60 > 60 Glucose 104 127 H Calcium 8.3 L 8.2 L Post-procedural complaints: none Patient Feedback: Patient satisfied with anesthetic care.
[2024-08-26 18:56] LABS: Cannabinoid Screen Urine Positive (Negative)
[2024-08-26] MEDS: METOCLOPRAMIDE HCL INJ 10 MG/2 ML VIAL IV PUSH (21:20)
[2024-08-26 22:00] VITALS: BP 106/69; PULSE 89; RESP 18; TEMP 36.8; O2SAT 97
[2024-08-27] MEDS: METOCLOPRAMIDE HCL INJ 10 MG/2 ML VIAL IV PUSH (05:39)
[2024-08-27] MEDS: CALCIUM CARBONATE (TUMS) 500 MG (200 MG ELEMENTAL) FEED TUBE ×2 (05:39→21:37)
[2024-08-27 06:00] VITALS: BP 104/66; PULSE 86; RESP 16; TEMP 36.6; O2SAT 99
[2024-08-27 06:18] LABS: Hematocrit 31.9 % (42.0-52.0); Hemoglobin 10.4 g/dL (14.0-18.0); Mean Corpuscular HGB Conc 32.6 g/dl (32-36); Mean Corpuscular Hemoglobin 30.1 pg (26-34); Mean Corpuscular Volume 92.2 fl (80-100); Platelet Count Result 138 k/mm3 (150-375); Red Blood Count 3.46 M/mm3 (4.6-6.20); White Blood Count 5.3 K/mm3 (4.5-10.0)
[2024-08-27 06:41] LABS: Anion Gap 4 mmol/L (4-12); Blood Urea Nitrogen 14 mg/dL (9-20); Calcium 7.7 mg/dL (8.4-10.2); Carbon Dioxide 26 mmol/L (22-30); Chloride 97 mmol/L (98-107); Estimated CRCL calculation 54 ml/min; Estimated Glomerular Filt Rate > 60; Glucose 76 mg/dL (65-110); Potassium 3.2 mmol/L (3.4-5.0); Sodium 127 mmol/L (137-145)
[2024-08-27] MEDS: POTASSIUM CHLORIDE 20 MEQ PACKET (FOR LIQUID) 40 MEQ FEED TUBE (09:11)
[2024-08-27] MEDS: ENOXAPARIN 30 MG/0.3 ML SYRINGE SUB-Q (09:11)
[2024-08-27] MEDS: MEGESTROL ACETATE (*CHEMO) ORAL SUSP 40 MG/ML SYR 400 MG PO ×2 (09:11→16:28)
[2024-08-27] MEDS: PANTOPRAZOLE 40 MG TABLET PO ×2 (09:12→21:37)
[2024-08-27] MEDS: DOCUSATE SODIUM 100 MG CAPSULE PO ×2 (09:12→16:28)
--- NOTE | 2024-08-27 09:50 | P.PNIM_ITS ---
Progress Note: A&P Assessment and Plan (1) Status post insertion of percutaneous endoscopic gastrostomy (PEG) tube: Code(s): Z93.1 - Gastrostomy status Status: Acute Assessment and Plan: On 08/25/2024 by GI G-tube placed for severe malnutrition. Patient may still take in oral intake in addition to tube feeds started full liquids Okay these G-tube for feeds and medications (2) Hypokalemia: Code(s): E87.6 - Hypokalemia Status: Acute Assessment and Plan: Replete as needed K:3.3 will give potassium (3) Hyponatremia: Code(s): E87.1 - Hypo-osmolality and hyponatremia Status: Acute Assessment and Plan: IVF fluid restriction monitor BMP (4) Hypocalcemia: Code(s): E83.51 - Hypocalcemia Status: Acute Assessment and Plan: improving (5) Hypotension: Code(s): I95.9 - Hypotension, unspecified Status: Acute Assessment and Plan: Likely due to dehydration and electrolyte imbalance Replete calcium Small bolus and IVF (6) Protein-calorie malnutrition, severe: Code(s): E43 - Unspecified severe protein-calorie malnutrition Status: Acute Assessment and Plan: Encourage oral and tube feeds Nutrition consulted Continue Megasetrol Continue home Reglan and Carafate PT and OT (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 Gi team on board [facility] to monitor will get UDS Subjective Date/time seen: 08/27/24 09:50 Interval history: per HPi: 63-year-old male past medical history of DVT, PE, anemia, adenocarcinoma of the cecum, malnutrition with poor oral intake who presented to the hospital for planned PEG tube being admitted after procedure. Patient states that he had a 60 lb weight loss in 3 months due to severe nausea and vomiting from chemotherapy. Patient is now so weak he has trouble ambulating. Patient states he did throw up dinner however he was able to tolerate dinner and his Carafate. After the GI procedure hospitalist team was consulted by GI for medical admission due to abnormal labs and hypotension. Blood work shows hemoglobin 10.9, sodium of 125, potassium 2.9, chloride of 93, calcium of 7.5. 08/26/24 Patient was seen and examined at bedside. he is feeling nauseated. underwent pegtube placement but his symptoms has not been improving. Gi team on board added Reglan KULDIP. will continue to monitor 08/27/24 patient was seen and examined at bedside. he is feeling better. his nausea is better. he tolerated clear liquid diet and asking to advance diet. has hyponatr emia, discussed with him about fluid restriction. continue tube feeding. continue reglan as scheduled has hypokalemia, will give Po potassium Review of Systems Review of Systems: 12 systems were reviewed and are negativ e except for as per HPI. Exam Narrative: General: Chronically ill, no acute distress, cachectic HEENT: normocephalic, atraumatic. Mucous membranes moist. EOMI, PERRLA, bilateral sclera anicteric, no conjunctival injection. Neck supple without JVD, lymphadenopathy, or bruit. Respiratory: clear to ascultation bilaterally. No rales/rhonic/wheezes. Cardiovascular: Regular rate and rhythm, normal S1-S2 upon ascultation. No murmurs, rubs, or clicks. PMI is nondisplaced, capillary refill less than 3 second. Abdomen: Soft, round, no pulsatile masses, nondistended and nontender. No rebo und, no guarding. No CVA tenderness, no hepatosplenomegaly. Bowel sounds present to all four quadrants. No high pitch or tinkling sounds, resonant to percussion. G-tube in place Extremities: No cyanosis, clubbing, or edema present. Pulses are palpable 2/2. Active ROM to all four extremities. Neuro: Alert and orientated x 4. PERRLA. Cranial nerves 2-12 intact without focal deficit. Skin: Warm, dry, and intact, without rash, erythema, or lesion. Psych: pleasant, cooperative, normal speech, normal affect, no hallucinations, no dysarthia Objective Data Vital Signs Vital Signs: Vital Signs - 24 hr 08/26/24 14:00 08/26/24 21:18 08/26/24 22:00 Temperature 97.5 F L 98.2 F Pulse Rate 88 89 Respiratory Rate 20 18 Blood Pressure 102/67 106/69 Pulse Oximetry 100 97 Oxygen Delivery Room Air 08/27/24 06:00 Temperature 97.9 F Pulse Rate 86 Respiratory Rate 16 Blood Pressure 104/66 Pulse Oximetry 99 Oxygen Delivery Intake/Output Intake/Output: Intake & Output 08/24/24 08/25/24 08/26/24 08/27/24 23:59 23:59 23:59 23:59 Intake Total 320 2539.8 120 Output Total 50 751 100 Balance 270 1788.8 20 Meds/Results Medications: Active Medications Generic Name Dose Route Start Last Admin Trade Name Freq PRN Reason Stop Dose Admin Acetaminophen 650 mg 08/25/24 14:38 Acetaminophen 325 Mg Tablet PO Q4H PRN Mild Pain (1-3) or Fever Hydrocodone Bitart/Acetaminophen 1 tab 08/25/24 14:38 Hydrocodone/Acetaminophen (*Crx) 5-325 Mg Tablet PO Q4H PRN Moderate Pain (4-6) Calcium Carbonate 200 mg 08/26/24 13:20 08/27/24 05:39 Calcium Carbonate (Tums) 500 Mg (200 Mg Elemental) FEED TUBE 200 mg Q8H KULDIP Administration Docusate Sodium 100 mg 08/25/24 17:00 08/27/24 09:12 Docusate Sodium 100 Mg Capsule PO 100 mg BID KULDIP Administration Enoxaparin Sodium 30 mg 08/26/24 09:00 08/27/24 09:11 Enoxaparin 30 Mg/0.3 Ml Syringe SUB-Q 30 mg DAILY KULDIP Administration Sodium Chloride 1,000 mls @ 75 mls/hr 08/25/24 15:45 08/26/24 21:18 Normal Saline Iv IV CONT 75 mls/hr .[id number] KULDIP Administration Megestrol Acetate 400 mg 08/25/24 17:00 08/27/24 09:11 Megestrol Acetate (*Chemo) Oral Susp 40 Mg/Ml Syr PO 400 mg BID KULDIP Administration Metoclopramide HCl 10 mg 08/26/24 10:10 08/27/24 05:39 Metoclopramide Hcl Inj 10 Mg/2 Ml Vial IV PUSH 10 mg Q8HR KULDIP Administration Morphine Sulfate 2 mg 08/25/24 14:38 Morphine Sulfate (*Crx) 2 Mg/Ml Inj IV PUSH Q4H PRN Pain Rated 7-10 Pantoprazole Sodium 40 mg 08/25/24 21:00 08/27/24 09:12 Pantoprazole 40 Mg Tablet PO 40 mg Q12HR KULDIP Administration Potassium Chloride 40 meq 08/27/24 09:00 08/27/24 09:11 Potassium Chloride 20 Meq Packet (For Liquid) FEED TUBE 40 meq DAILY KULDIP Administration Promethazine HCl 25 mg 08/25/24 23:15 08/26/24 09:16 Promethazine Hcl 25 Mg Tablet BY MOUTH 25 mg Q6H PRN Administration NAUSEA/VOMITING Labs Labs: Laboratory Results - last 24 hr 08/26/24 08/27/24 18:29 05:27 WBC 5.3 RBC 3.46 L Hgb 10.4 L Hct 31.9 L MCV 92.2 MCH 30.1 MCHC 32.6 RDW 18.1 H Plt Count 138 L MPV 9.5 Sodium 127 L Potassium 3.2 L Chloride 97 L Carbon Dioxide 26 Anion Gap 4 BUN 14 Creatinine 0.63 L Estim Creat Clear Calc 54 Estimated GFR > 60 Glucose 76 Calcium 7.7 L Urine Opiates Screen Negative Urine Methadone Screen Negative Ur Barbiturates Screen Negative Ur Phencyclidine Scrn Negative Ur Amphetamine Screen Negative U Benzodiazepines Scrn Negative Urine Cocaine Screen Negative U Cannabinoids Screen Positive A Quality VTE Prophylaxis VTE prophylaxis: mechanical ordered and pharmacologic ordered
[2024-08-27] MEDS: SODIUM CHLORIDE 0.9% IV 1,000 ML 75 ML IV CONT (10:19)
--- NOTE | 2024-08-27 11:13 | WPDGIPROGNO ---
Progress Note: A&P Assessment and Plan (1) Status post insertion of percutaneous endoscopic gastrostomy (PEG) tube: Code(s): Z93.1 - Gastrostomy status Status: Acute Assessment and Plan: The patient's nausea and gastric content retention have been notoriously improved with intravenous metoclopramide. Will switch to oral today with possible discharge tomorrow. Subjective Date/time seen: 08/27/24 11:13 Interval history: The patient feels better, has not experienced more nausea and there are no residual contents in his stomach after receiving metoclopramide. Exam Narrative: Unchanged from baseline. Objective Data Vital Signs Vital Signs: Vital Signs - 24 hr 08/26/24 14:00 08/26/24 21:18 08/26/24 22:00 Temperature 97.5 F L 98.2 F Pulse Rate 88 89 Respiratory Rate 20 18 Blood Pressure 102/67 106/69 Pulse Oximetry 100 97 Oxygen Delivery Room Air 08/27/24 06:00 Temperature 97.9 F Pulse Rate 86 Respiratory Rate 16 Blood Pressure 104/66 Pulse Oximetry 99 Oxygen Delivery Intake/Output Intake/Output: Intake & Output 08/24/24 08/25/24 08/26/24 08/27/24 23:59 23:59 23:59 23:59 Intake Total 320 2539.8 1096.3 Output Total 50 751 100 Balance 270 1788.8 996.3 Meds/Results Medications: Active Medications Generic Name Dose Route Start Last Admin Trade Name Freq PRN Reason Stop Dose Admin Acetaminophen 650 mg 08/25/24 14:38 Acetaminophen 325 Mg Tablet PO Q4H PRN Mild Pain (1-3) or Fever Hydrocodone Bitart/Acetaminophen 1 tab 08/25/24 14:38 Hydrocodone/Acetaminophen (*Crx) 5-325 Mg Tablet PO Q4H PRN Moderate Pain (4-6) Calcium Carbonate 200 mg 08/26/24 13:20 08/27/24 05:39 Calcium Carbonate (Tums) 500 Mg (200 Mg Elemental) FEED TUBE 200 mg Q8H KULDIP Administration Docusate Sodium 100 mg 08/25/24 17:00 08/27/24 09:12 Docusate Sodium 100 Mg Capsule PO 100 mg BID KULDIP Administration Enoxaparin Sodium 30 mg 08/26/24 09:00 08/27/24 09:11 Enoxaparin 30 Mg/0.3 Ml Syringe SUB-Q 30 mg DAILY KULDIP Administration Sodium Chloride 1,000 mls @ 75 mls/hr 08/25/24 15:45 08/27/24 10:19 Normal Saline Iv IV CONT 75 mls/hr .[id number] KULDIP Administration Megestrol Acetate 400 mg 08/25/24 17:00 08/27/24 09:11 Megestrol Acetate (*Chemo) Oral Susp 40 Mg/Ml Syr PO 400 mg BID KULDIP Administration Metoclopramide HCl 10 mg 08/26/24 10:10 08/27/24 05:39 Metoclopramide Hcl Inj 10 Mg/2 Ml Vial IV PUSH 10 mg Q8HR KULDIP Administration Morphine Sulfate 2 mg 08/25/24 14:38 Morphine Sulfate (*Crx) 2 Mg/Ml Inj IV PUSH Q4H PRN Pain Rated 7-10 Pantoprazole Sodium 40 mg 08/25/24 21:00 08/27/24 09:12 Pantoprazole 40 Mg Tablet PO 40 mg Q12HR KULDIP Administration Potassium Chloride 40 meq 08/27/24 09:00 08/27/24 09:11 Potassium Chloride 20 Meq Packet (For Liquid) FEED TUBE 40 meq DAILY KULDIP Administration Promethazine HCl 25 mg 08/25/24 23:15 08/26/24 09:16 Promethazine Hcl 25 Mg Tablet BY MOUTH 25 mg Q6H PRN Administration NAUSEA/VOMITING Labs Labs: Laboratory Results - last 24 hr 08/26/24 08/27/24 18:29 05:27 WBC 5.3 RBC 3.46 L Hgb 10.4 L Hct 31.9 L MCV 92.2 MCH 30.1 MCHC 32.6 RDW 18.1 H Plt Count 138 L MPV 9.5 Sodium 127 L Potassium 3.2 L Chloride 97 L Carbon Dioxide 26 Anion Gap 4 BUN 14 Creatinine 0.63 L Estim Creat Clear Calc 54 Estimated GFR > 60 Glucose 76 Calcium 7.7 L Urine Opiates Screen Negative Urine Methadone Screen Negative Ur Barbiturates Screen Negative Ur Phencyclidine Scrn Negative Ur Amphetamine Screen Negative U Benzodiazepines Scrn Negative Urine Cocaine Screen Negative U Cannabinoids Screen Positive A
[2024-08-27] MEDS: METOCLOPRAMIDE HCL 10 MG TABLET PO ×3 (13:02→21:37)
[2024-08-27 14:00] VITALS: BP 106/70; PULSE 98; RESP 20; TEMP 36.4; O2SAT 100
[2024-08-27 21:21] VITALS: BP 103/64; PULSE 102; RESP 18; TEMP 36.2; O2SAT 100
[2024-08-28] MEDS: SODIUM CHLORIDE 0.9% IV 1,000 ML 75 ML IV CONT (00:15)
[2024-08-28] MEDS: METOCLOPRAMIDE HCL 10 MG TABLET PO ×4 (05:29→20:36)
[2024-08-28] MEDS: CALCIUM CARBONATE (TUMS) 500 MG (200 MG ELEMENTAL) FEED TUBE ×2 (05:29→17:02)
[2024-08-28 06:00] VITALS: BP 109/67; PULSE 99; RESP 18; TEMP 36.8; O2SAT 99
[2024-08-28 06:30] LABS: Hematocrit 35.6 % (42.0-52.0); Hemoglobin 11.7 g/dL (14.0-18.0); Mean Corpuscular HGB Conc 32.9 g/dl (32-36); Mean Corpuscular Hemoglobin 30.4 pg (26-34); Mean Corpuscular Volume 92.5 fl (80-100); Platelet Count Result 147 k/mm3 (150-375); Red Blood Count 3.85 M/mm3 (4.6-6.20); White Blood Count 5.7 K/mm3 (4.5-10.0)
[2024-08-28 06:52] LABS: Anion Gap 6 mmol/L (4-12); Blood Urea Nitrogen 10 mg/dL (9-20); Calcium 7.8 mg/dL (8.4-10.2); Carbon Dioxide 22 mmol/L (22-30); Chloride 100 mmol/L (98-107); Estimated CRCL calculation 63 ml/min; Estimated Glomerular Filt Rate > 60; Glucose 70 mg/dL (65-110); Potassium 3.3 mmol/L (3.4-5.0); Sodium 128 mmol/L (137-145)
--- NOTE | 2024-08-28 07:17 | WPDGIPROGNO ---
Progress Note: A&P Assessment and Plan (1) Status post insertion of percutaneous endoscopic gastrostomy (PEG) tube: Code(s): Z93.1 - Gastrostomy status Status: Acute Assessment and Plan: The patient's nausea and gastric retention has resolved with metoclopramide. He was able to tolerate a regular diet yesterday. He can be discharged from our specialty standpoint, with metoclopramide 10 mg before meals. Promethazine, which was given to him prior to starting metroclopramide, should not be prescribed to him because of the potential interaction and development of extrapyramidal syndromes with both medications if given residential. Subjective Date/time seen: 08/28/24 07:17 Objective Data Vital Signs Vital Signs: Vital Signs - 24 hr 08/27/24 08:00 08/27/24 11:59 08/27/24 14:00 Temperature 97.5 F L Pulse Rate 98 Respiratory Rate 20 Blood Pressure 106/70 Pulse Oximetry 100 Oxygen Delivery Room Air Room Air 08/27/24 21:21 08/27/24 21:37 08/28/24 06:00 Temperature 97.2 F L 98.3 F Pulse Rate 102 H 99 Respiratory Rate 18 18 Blood Pressure 103/64 109/67 Pulse Oximetry 100 99 Oxygen Delivery Room Air Intake/Output Intake/Output: Intake & Output 08/25/24 08/26/24 08/27/24 08/28/24 23:59 23:59 23:59 23:59 Intake Total 320 2539.8 1336.3 1390 Output Total 50 751 1300 380 Balance 270 1788.8 36.3 1010 Meds/Results Medications: Active Medications Generic Name Dose Route Start Last Admin Trade Name Freq PRN Reason Stop Dose Admin Acetaminophen 650 mg 08/25/24 14:38 Acetaminophen 325 Mg Tablet PO Q4H PRN Mild Pain (1-3) or Fever Hydrocodone Bitart/Acetaminophen 1 tab 08/25/24 14:38 Hydrocodone/Acetaminophen (*Crx) 5-325 Mg Tablet PO Q4H PRN Moderate Pain (4-6) Calcium Carbonate 200 mg 08/26/24 13:20 08/28/24 05:29 Calcium Carbonate (Tums) 500 Mg (200 Mg Elemental) FEED TUBE 200 mg Q8H KULDIP Administration Docusate Sodium 100 mg 08/25/24 17:00 08/27/24 16:28 Docusate Sodium 100 Mg Capsule PO 100 mg BID KULDIP Administration Enoxaparin Sodium 30 mg 08/26/24 09:00 08/27/24 09:11 Enoxaparin 30 Mg/0.3 Ml Syringe SUB-Q 30 mg DAILY KULDIP Administration Sodium Chloride 1,000 mls @ 75 mls/hr 08/25/24 15:45 08/28/24 00:15 Normal Saline Iv IV CONT 75 mls/hr .[id number] KULDIP Administration Megestrol Acetate 400 mg 08/25/24 17:00 08/27/24 16:28 Megestrol Acetate (*Chemo) Oral Susp 40 Mg/Ml Syr PO 400 mg BID KULDIP Administration Metoclopramide HCl 10 mg 08/27/24 11:30 08/28/24 05:29 Metoclopramide Hcl 10 Mg Tablet PO 10 mg ACHS KULDIP Administration Morphine Sulfate 2 mg 08/25/24 14:38 Morphine Sulfate (*Crx) 2 Mg/Ml Inj IV PUSH Q4H PRN Pain Rated 7-10 Pantoprazole Sodium 40 mg 08/25/24 21:00 08/27/24 21:37 Pantoprazole 40 Mg Tablet PO 40 mg Q12HR KULDIP Administration Potassium Chloride 40 meq 08/27/24 09:00 08/27/24 09:11 Potassium Chloride 20 Meq Packet (For Liquid) FEED TUBE 40 meq DAILY KULDIP Administration Promethazine HCl 25 mg 08/25/24 23:15 08/26/24 09:16 Promethazine Hcl 25 Mg Tablet BY MOUTH 25 mg Q6H PRN Administration NAUSEA/VOMITING Labs Labs: Laboratory Results - last 24 hr 08/28/24 06:06 WBC 5.7 RBC 3.85 L Hgb 11.7 L Hct 35.6 L MCV 92.5 MCH 30.4 MCHC 32.9 RDW 17.4 H Plt Count 147 L MPV 9.3 Sodium 128 L Potassium 3.3 L Chloride 100 Carbon Dioxide 22 Anion Gap 6 BUN 10 Creatinine 0.53 L Estim Creat Clear Calc 63 Estimated GFR > 60 Glucose 70 Calcium 7.8 L
[2024-08-28] MEDS: DOCUSATE SODIUM 100 MG CAPSULE PO ×2 (08:58→17:01)
[2024-08-28] MEDS: PANTOPRAZOLE 40 MG TABLET PO ×2 (08:59→20:36)
[2024-08-28] MEDS: POTASSIUM CHLORIDE 20 MEQ PACKET (FOR LIQUID) 40 MEQ FEED TUBE (08:59)
[2024-08-28] MEDS: MEGESTROL ACETATE (*CHEMO) ORAL SUSP 40 MG/ML SYR 400 MG PO ×2 (09:00→17:02)
[2024-08-28] MEDS: ENOXAPARIN 40 MG/0.4 ML SYRINGE SUB-Q (09:01)
[2024-08-28 14:00] VITALS: BP 102/61; PULSE 126; RESP 18; TEMP 36.1; O2SAT 94
--- NOTE | 2024-08-28 14:25 | P.PNIM_ITS ---
Progress Note: A&P Assessment and Plan (1) Status post insertion of percutaneous endoscopic gastrostomy (PEG) tube: Code(s): Z93.1 - Gastrostomy status Status: Acute Assessment and Plan: On 08/25/2024 by GI G-tube placed for severe malnutrition. Patient may still take in oral intake in addition to tube feeds tolerated regular diet Okay these G-tube for feeds and medications (2) Hypokalemia: Code(s): E87.6 - Hypokalemia Status: Acute Assessment and Plan: Replete as needed K:3.3 will give potassium (3) Hyponatremia: Code(s): E87.1 - Hypo-osmolality and hyponatremia Status: Acute Assessment and Plan: received IVF fluid restriction monitor BMP (4) Hypocalcemia: Code(s): E83.51 - Hypocalcemia Status: Acute Assessment and Plan: tums (5) Hypotension: Code(s): I95.9 - Hypotension, unspecified Status: Acute Assessment and Plan: Likely due to dehydration and electrolyte imbalance Replete calcium stable (6) Protein-calorie malnutrition, severe: Code(s): E43 - Unspecified severe protein-calorie malnutrition Status: Acute Assessment and Plan: Encourage oral and tube feeds Nutrition consulted Continue Megasetrol Continue home Reglan and Carafate PT and OT (7) group home (current) use of anticoagulants: Code(s): Z79.01 - group home (current) use of anticoagulants Status: Acute Assessment and Plan: History of DVT and PE Does not appear to be on current anticoagulation (8) Adenocarcinoma of cecum: Onset Date: ~01/2023 Code(s): C18.0 - Malignant neoplasm of cecum Status: Chronic Assessment and Plan: Ct on 07/31/24 Findings within the chest, abdomen and pelvis which demonstrate a positive response to treatment See plan above (9) Nausea and vomiting in adult: Code(s): R11.2 - Nausea with vomiting, unspecified Status: Acute Assessment and Plan: possible cyclic vomiting Synd improving on Reglan scheduled. Gi team on board [facility] to monitor UDS positive for Marijuana Subjective Date/time seen: 08/28/24 14:25 Interval history: per HPi: 63-year-old male past medical history of DVT, PE, anemia, adenocarcinoma of the cecum, malnutrition with poor oral intake who presented to the hospital for planned PEG tube being admitted after procedure. Patient states that he had a 60 lb weight loss in 3 months due to severe nausea and vomiting from chemotherapy. Patient is now so weak he has trouble ambulating. Patient states he did throw up dinner however he was able to tolerate dinner and his Carafate. After the GI procedure hospitalist team was consulted by GI for medical admission due to abnormal labs and hypotension. Blood work shows hemoglobin 10.9, sodium of 125, potassium 2.9, chloride of 93, calcium of 7.5. 08/26/24 Patient was seen and examined at bedside. he is feeling nauseated. underwent pegtube placement but his symptoms has not been improving. Gi team on board added Reglan KULDIP. will continue to monitor 08/27/24 patient was seen and examined at bedside. he is feeling better. his nausea is better. he tolerated clear liquid diet and asking to advance diet. has hyponatremia, discussed with him about fluid restriction. continue tube feeding. continue reglan as scheduled has hypokalemia, will give Po potassium 08/28/24 Patient was seen and examined at bedside. his N/V improved after taking reglan. he tolerated regular diet. Dc plan pending placement. patient appointment coordinator team on board Review of Systems Review of Systems: 12 systems were reviewed and are negativ e except for as per HPI. Exam Narrative: General: Chronically ill, no acute distress, cachectic HEENT: normocephalic, atraumatic. Mucous membranes moist. EOMI, PERRLA, bilateral sclera anicteric, no conjunctival injection. Neck supple without JVD, lymphadenopathy, or bruit. Respiratory: clear to ascultation bilaterally. No rales/rhonic/wheezes. Cardiovascular: Regular rate and rhythm, normal S1-S2 upon ascultation. No murmurs, rubs, or clicks. PMI is nondisplaced, capillary refill less than 3 second. Abdomen: Soft, round, no pulsatile masses, nondistended and nontender. No rebound, no guarding. No CVA tenderness, no hepatosplenomegaly. Bowel sounds present to all four quadrants. No high pitch or tinkling sounds, resonant to percussion. G-tube in place Extremities: No cyanosis, clubbing, or edema present. Pulses are palpable 2/2. Active ROM to all four extremities. Neuro: Alert and orientated x 4. PERRLA. Cranial nerves 2-12 intact without focal deficit. Skin: Warm, dry, and intact, without rash, erythema, or lesion. Psych: pleasant, cooperative, normal speech, normal affect, no hallucinations, no dysarthia Objective Data Vital Signs Vital Signs: Vital Signs - 24 hr 08/27/24 21:21 08/27/24 21:37 08/28/24 06:00 Temperature 97.2 F L 98.3 F Pulse Rate 102 H 99 Respiratory Rate 18 18 Blood Pressure 103/64 109/67 Pulse Oximetry 100 99 Oxygen Delivery Room Air 08/28/24 08:00 08/28/24 09:13 Temperature Pulse Rate Respiratory Rate Blood Pressure Pulse Oximetry Oxygen Delivery Room Air Room Air Intake/Output Intake/Output: Intake & Output 08/25/24 08/26/24 08/27/24 08/28/24 23:59 23:59 23:59 23:59 Intake Total 320 2539.8 1336.3 1630 Output Total 50 751 1300 380 Balance 270 1788.8 36.3 1250 Meds/Results Medications: Active Medications Generic Name Dose Route Start Last Admin Trade Name Freq PRN Reason Stop Dose Admin Acetaminophen 650 mg 08/25/24 14:38 Acetaminophen 325 Mg Tablet PO Q4H PRN Mild Pain (1-3) or Fever Hydrocodone Bitart/Acetaminophen 1 tab 08/25/24 14:38 Hydrocodone/Acetaminophen (*Crx) 5-325 Mg Tablet PO Q4H PRN Moderate Pain (4-6) Calcium Carbonate 200 mg 08/26/24 13:20 08/28/24 05:29 Calcium Carbonate (Tums) 500 Mg (200 Mg Elemental) FEED TUBE 200 mg Q8H KULDIP Administration Docusate Sodium 100 mg 08/25/24 17:00 08/28/24 08:58 Docusate Sodium 100 Mg Capsule PO 100 mg BID KULDIP Administration Enoxaparin Sodium 40 mg 08/28/24 09:00 08/28/24 09:01 Enoxaparin 40 Mg/0.4 Ml Syringe SUB-Q 40 mg QAM KULDIP Administration Megestrol Acetate 400 mg 08/25/24 17:00 08/28/24 09:00 Megestrol Acetate (*Chemo) Oral Susp 40 Mg/Ml Syr PO 400 mg BID KULDIP Administration Metoclopramide HCl 10 mg 08/27/24 11:30 08/28/24 11:35 Metoclopramide Hcl 10 Mg Tablet PO 10 mg ACHS KULDIP Administration Morphine Sulfate 2 mg 08/25/24 14:38 Morphine Sulfate (*Crx) 2 Mg/Ml Inj IV PUSH Q4H PRN Pain Rated 7-10 Pantoprazole Sodium 40 mg 08/25/24 21:00 08/28/24 08:59 Pantoprazole 40 Mg Tablet PO 40 mg Q12HR KULDIP Administration Potassium Chloride 40 meq 08/27/24 09:00 08/28/24 08:59 Potassium Chloride 20 Meq Packet (For Liquid) FEED TUBE 40 meq DAILY KULDIP Administration Promethazine HCl 25 mg 08/25/24 23:15 08/26/24 09:16 Promethazine Hcl 25 Mg Tablet BY MOUTH 25 mg Q6H PRN Administration NAUSEA/VOMITING Labs Labs: Laboratory Results - last 24 hr 08/28/24 06:06 WBC 5.7 RBC 3.85 L Hgb 11.7 L Hct 35.6 L MCV 92.5 MCH 30.4 MCHC 32.9 RDW 17.4 H Plt Count 147 L MPV 9.3 Sodium 128 L Potassium 3.3 L Chloride 100 Carbon Dioxide 22 Anion Gap 6 BUN 10 Creatinine 0.53 L Estim Creat Clear Calc 63 Estimated GFR > 60 Glucose 70 Calcium 7.8 L Quality VTE Prophylaxis VTE prophylaxis: mechanical ordered and pharmacologic ordered
[2024-08-28 15:24] LABS: Anion Gap 6 mmol/L (4-12); Blood Urea Nitrogen 11 mg/dL (9-20); Calcium 8.0 mg/dL (8.4-10.2); Carbon Dioxide 23 mmol/L (22-30); Chloride 103 mmol/L (98-107); Estimated CRCL calculation 63 ml/min; Estimated Glomerular Filt Rate > 60; Glucose 70 mg/dL (65-110); Potassium 4.1 mmol/L (3.4-5.0); Sodium 132 mmol/L (137-145)
[2024-08-28 20:00] VITALS: PULSE 104; O2SAT 97
[2024-08-28 20:14] VITALS: BP 99/66; PULSE 116; RESP 20; TEMP 36.5; O2SAT 97
[2024-08-29 00:04] VITALS: BP 108/64; PULSE 104; TEMP 36.2
--- NOTE | 2024-08-29 00:50 | ECG_ITS ---
Test Date: 2024-08-29 00:54:20 Measurements Intervals [place] Rate: 101 P: 69 SC: 133 QRS: 33 QRSD: 82 T: 76 QT: 340 QTc: 441 Interpretive Statements SINUS TACHYCARDIA LOW QRS VOLTAGE IN EXTREMITY LEADS [QRS DEFLECTION < 0.5 mV IN LIMB LEADS] ABNORMAL RHYTHM ECG Compared to ECG 05/19/2024 11:32:21 Low QRS voltage now present Sinus rhythm no longer present Electronically Signed On 08-29-2024 16:41:47 CDT by Tiarra Fernandez M.D.
[2024-08-29 05:38] LABS: Hematocrit 31.5 % (42.0-52.0); Hemoglobin 10.5 g/dL (14.0-18.0); Mean Corpuscular HGB Conc 33.3 g/dl (32-36); Mean Corpuscular Hemoglobin 30.2 pg (26-34); Mean Corpuscular Volume 90.5 fl (80-100); Platelet Count Result 153 k/mm3 (150-375); Red Blood Count 3.48 M/mm3 (4.6-6.20); White Blood Count 6.8 K/mm3 (4.5-10.0)
[2024-08-29] MEDS: METOCLOPRAMIDE HCL 10 MG TABLET PO ×4 (05:47→21:03)
[2024-08-29 05:52] VITALS: BP 96/59; PULSE 101; RESP 20; TEMP 36.6; O2SAT 96
[2024-08-29 06:07] LABS: Anion Gap 6 mmol/L (4-12); Blood Urea Nitrogen 17 mg/dL (9-20); Calcium 7.8 mg/dL (8.4-10.2); Carbon Dioxide 22 mmol/L (22-30); Chloride 103 mmol/L (98-107); Estimated CRCL calculation 63 ml/min; Estimated Glomerular Filt Rate > 60; Glucose 49 mg/dL (65-110); Potassium 4.3 mmol/L (3.4-5.0); Sodium 131 mmol/L (137-145)
[2024-08-29 08:00] VITALS: PULSE 101; RESP 20; O2SAT 96
[2024-08-29] MEDS: PANTOPRAZOLE 40 MG TABLET PO ×2 (08:42→21:03)
[2024-08-29] MEDS: POTASSIUM CHLORIDE 20 MEQ PACKET (FOR LIQUID) 40 MEQ FEED TUBE (08:42)
[2024-08-29] MEDS: CALCIUM CARBONATE (TUMS) 500 MG (200 MG ELEMENTAL) FEED TUBE ×2 (08:42→16:56)
[2024-08-29] MEDS: ENOXAPARIN 40 MG/0.4 ML SYRINGE SUB-Q (08:42)
[2024-08-29] MEDS: DOCUSATE SODIUM 100 MG CAPSULE PO ×2 (08:42→16:56)
[2024-08-29] MEDS: MEGESTROL ACETATE (*CHEMO) ORAL SUSP 40 MG/ML SYR 400 MG PO ×2 (08:42→16:59)
--- NOTE | 2024-08-29 09:36 | PCPTNOTE ---
Patient declined Pt at this time stating he did not sleep well last night and is tired. Patient request PT return later. PT will continue to follow.
--- NOTE | 2024-08-29 11:29 | PCPTNOTE ---
Returned to see patient for treatment however patient refused stating he has not been able to rest all morning and is still tired. Educated patient on the importance of participating in PT to improve strength and endurance. Patient voices understanding but continues to decline PT.
--- NOTE | 2024-08-29 11:54 | PCOTNOTE ---
Patient refused to participate in OT services at this time. Patient states he did not sleep well, is so tired, is waiting to go to rehab. Patient educated on participation and the importance of performing therapy services here for increased approval rate for going to rehab
--- NOTE | 2024-08-29 11:59 | P.PNIM_ITS ---
Progress Note: A&P Assessment and Plan (1) Status post insertion of percutaneous endoscopic gastrostomy (PEG) tube: Code(s): Z93.1 - Gastrostomy status Status: Acute Assessment and Plan: On 08/25/2024 by GI G-tube placed for severe malnutrition. Patient taking orally now Okay these G-tube for feeds and medications (2) Hypokalemia: Code(s): E87.6 - Hypokalemia Status: Acute Assessment and Plan: resolved (3) Hyponatremia: Code(s): E87.1 - Hypo-osmolality and hyponatremia Status: Acute Assessment and Plan: NA 131 monitor (4) Hypocalcemia: Code(s): E83.51 - Hypocalcemia Status: Acute Assessment and Plan: tums (5) Hypotension: Code(s): I95.9 - Hypotension, unspecified Status: Acute Assessment and Plan: Likely due to dehydration and electrolyte imbalance Replete calcium stable (6) Protein-calorie malnutrition, severe: Code(s): E43 - Unspecified severe protein-calorie malnutrition Status: Acute Assessment and Plan: Encourage oral and tube feeds Nutrition consulted Continue Megasetrol Continue home Reglan and Carafate PT and OT (7) [facility] (current) use of anticoagulants: Code(s): Z79.01 - [facility] (current) use of anticoagulants Status: Acute Assessment and Plan: History of DVT and PE Does not appear to be on current anticoagulation (8) Adenocarcinoma of cecum: Onset Date: ~01/2023 Code(s): C18.0 - Malignant neoplasm of cecum Status: Chronic Assessment and Plan: Ct on 07/31/24 Findings within the chest, abdomen and pelvis which demonstrate a positive res ponse to treatment See plan above (9) Nausea and vomiting in adult: Code(s): R11.2 - Nausea with vomiting, unspecified Status: Acute Assessment and Plan: possible cyclic vomiting Synd improving UDS positive for Marijuana resolved on Reglan GI on board Hypoglycemia BG 49 this morning, resolved monitor one more day If repeats will start and discharge on Tube feeds DVT prophylaxis on Sq Lovenox Subjective Date/time seen: 08/29/24 11:59 Interval history: Patient comfortable at bedside Had hypoglycemia this morning Nurse noted that oral intake has improved since starting reglan will monitor one more day Review of Systems Review of Systems: 12 systems were reviewed and are negativ e except for as per HPI. Exam Narrative: General: Chronically ill, no acute distress, cachectic HEENT: normocephalic, atraumatic. Mucous membranes moist. EOMI, PERRLA, bilateral sclera anicteric, no conjunctival injection. Neck supple without JVD, lymphadenopathy, or bruit. Respiratory: clear to ascultation bilaterally. No rales/rhonic/wheezes. Cardiovascular: Regular rate and rhythm, normal S1-S2 upon ascultation. No murmurs, rubs, or clicks. PMI is nondisplaced, capillary refill less than 3 second. Abdomen: Soft, round, no pulsatile masses, nondistended and nontender. No rebound, no guarding. No CVA tenderness, no hepatosplenomegaly. Bowel sounds present to all four quadrants. No high pitch or tinkling sounds, resonant to percussion. G-tube in place Extremities: No cyanosis, clubbing, or edema present. Pulses are palpable 2/2. Active ROM to all four extremities. Neuro: Alert and orientated x 4. PERRLA. Cranial nerves 2-12 intact without focal deficit. Skin: Warm, dry, and intact, without rash, erythema, or lesion. Psych: pleasant, cooperative, normal speech, normal affect, no hallucinations, no dysarthia Objective Data Vital Signs Vital Signs: Vital Signs - 24 hr 08/28/24 14:00 08/28/24 20:00 08/28/24 20:14 Temperature 96.9 F L 97.7 F Pulse Rate 126 H 104 H 116 H Respiratory Rate 18 20 Blood Pressure 102/61 99/66 L Pulse Oximetry 94 97 97 Oxygen Delivery Room Air 08/29/24 00:04 08/29/24 05:52 Temperature 97.1 F L 97.9 F Pulse Rate 104 H 101 H Respiratory Rate 20 Blood Pressure 108/64 96/59 L Pulse Oximetry 96 Oxygen Delivery Intake/Output Intake/Output: Intake & Output 08/26/24 08/27/24 08/28/24 08/29/24 23:59 23:59 23:59 23:59 Intake Total 2539.8 1336.3 1870 0 Output Total 751 1300 480 200 Balance 1788.8 36.3 1390 -200 Meds/Results Medications: Active Medications Generic Name Dose Route Start Last Admin Trade Name Freq PRN Reason Stop Dose Admin Acetaminophen 650 mg 08/25/24 14:38 Acetaminophen 325 Mg Tablet PO Q4H PRN Mild Pain (1-3) or Fever Hydrocodone Bitart/Acetaminophen 1 tab 08/25/24 14:38 Hydrocodone/Acetaminophen (*Crx) 5-325 Mg Tablet PO Q4H PRN Moderate Pain (4-6) Calcium Carbonate 200 mg 08/28/24 17:00 08/29/24 08:42 Calcium Carbonate (Tums) 500 Mg (200 Mg Elemental) FEED TUBE 200 mg BID KULDIP Administration Docusate Sodium 100 mg 08/25/24 17:00 08/29/24 08:42 Docusate Sodium 100 Mg Capsule PO 100 mg BID KULDIP Administration Enoxaparin Sodium 40 mg 08/28/24 09:00 08/29/24 08:42 Enoxaparin 40 Mg/0.4 Ml Syringe SUB-Q 40 mg QAM KULDIP Administration Megestrol Acetate 400 mg 08/25/24 17:00 08/29/24 08:42 Megestrol Acetate (*Chemo) Oral Susp 40 Mg/Ml Syr PO 400 mg BID KULDIP Administration Metoclopramide HCl 10 mg 08/27/24 11:30 08/29/24 11:36 Metoclopramide Hcl 10 Mg Tablet PO 10 mg ACHS KULDIP Administration Morphine Sulfate 2 mg 08/25/24 14:38 Morphine Sulfate (*Crx) 2 Mg/Ml Inj IV PUSH Q4H PRN Pain Rated 7-10 Pantoprazole Sodium 40 mg 08/25/24 21:00 08/29/24 08:42 Pantoprazole 40 Mg Tablet PO 40 mg Q12HR KULDIP Administration Potassium Chloride 40 meq 08/27/24 09:00 08/29/24 08:42 Potassium Chloride 20 Meq Packet (For Liquid) FEED TUBE 40 meq DAILY KULDIP Administration Promethazine HCl 25 mg 08/25/24 23:15 08/26/24 09:16 Promethazine Hcl 25 Mg Tablet BY MOUTH 25 mg Q6H PRN Administration NAUSEA/VOMITING Labs Labs: Laboratory Results - last 24 hr 08/28/24 08/29/24 08/29/24 14:55 05:10 06:35 WBC 6.8 RBC 3.48 L Hgb 10.5 L Hct 31.5 L MCV 90.5 MCH 30.2 MCHC 33.3 RDW 18.0 H Plt Count 153 MPV 9.4 Sodium 132 L 131 L Potassium 4.1 4.3 Chloride 103 103 Carbon Dioxide 23 22 Anion Gap 6 6 BUN 11 17 Creatinine 0.65 L 0.65 L Estim Creat Clear Calc 63 63 Estimated GFR > 60 > 60 Glucose 70 49 L* POC Capillary Glucose 75 Calcium 8.0 L 7.8 L Quality VTE Prophylaxis VTE prophylaxis: mechanical ordered and pharmacologic ordered
--- NOTE | 2024-08-29 13:11 | PCNFU ---
Nutrition Follow-Up Complete: Severe Protein Calorie Malnutrition as related to inadequate protein energy intake with increased protein energy needs in setting of chronic disease as evidenced by minimal oral intake for > 1-2 months; significant weight loss of 42% (60 ibs) 4 months; severe subcutaneous fat loss(orbital fat pads, triceps) and muscle wasting (temporalis/clavicle) Goal:Meet estimated nutritional needs. Pt progressing towards goal Pt current nutrition is Regular. Nutrition recommendation: start tube feedings per PEG tube placed 08/25/24 Last recorded weight is 45.9 kg. Bowel Motility: +BM 08/27 Labs Reviewed: Hgb:10.5, HCT:31.5, NA:131, Cr:0.6, Glu:49 Meds Noted: megace, reglan, KCL, lovenox Skin: WNL Additional Notes: Pt on a regular diet, intake varied 5-75%. No tube feeding at this time as pt had some tolerance issues to start. Pt now on reglan. Recommend to initiate tube feedings - Jevity 1.5, start at 20ml/hr and advance q 4 hrs to goal rate of 40ml. Total Nutrition: 1320 kcal/56 gm protein/669 ml water. Meeting 99% kcal needs at 35 kcal/kg and 92% protein needs at 1.6-1.8 gm/kg. Recommend to transition to bolus feeds once continuous is tolerated. *Bolus feedings: 237 ml (1 can) 4 x daily with flush 100 ml after feedings. Total Nutrition: 1422 kcal/61 gm protein/720 ml water. Meeting 100% kcal needs at 35 kcal/kg and 100% protein needs at 1.6-1.8 gm/kg. Nursing informed of plan. Will monitor weight, labs, skin, diet orders, meds every Wednesday and Wednesday.
[2024-08-29] MEDS: PROMETHAZINE HCL 25 MG TABLET BY MOUTH (13:59)
[2024-08-29 14:00] VITALS: BP 92/70; PULSE 117; RESP 18; TEMP 37.1; O2SAT 99
--- NOTE | 2024-08-29 18:45 | PC.NURSE ---
1730 - Pt stated he feels full and the tube feeding hurts, he does not agree to Tube feeds being continued at this time. Held TF for 30 min, at 1800 residual of 0, PT agreed to restart at this time. Patient states it still hurts. TF running at 20 mls/hr.
[2024-08-29] MEDS: HYDROcodone/acetaminophen (*CRX) 5-325 MG TABLET 1 TAB PO (19:44)
[2024-08-29 20:00] VITALS: PULSE 74; RESP 16; O2SAT 97
[2024-08-29 20:12] VITALS: BP 92/68; PULSE 74; RESP 16; TEMP 37.2; O2SAT 97
[2024-08-30] MEDS: HYDROcodone/acetaminophen (*CRX) 5-325 MG TABLET 1 TAB PO ×2 (01:25→17:47)
[2024-08-30 05:16] VITALS: BP 106/72; PULSE 95; RESP 18; TEMP 36.9; O2SAT 96
[2024-08-30 05:54] LABS: Hematocrit 31.7 % (42.0-52.0); Hemoglobin 10.4 g/dL (14.0-18.0); Mean Corpuscular HGB Conc 32.8 g/dl (32-36); Mean Corpuscular Hemoglobin 30.0 pg (26-34); Mean Corpuscular Volume 91.4 fl (80-100); Platelet Count Result 169 k/mm3 (150-375); Red Blood Count 3.47 M/mm3 (4.6-6.20); White Blood Count 8.4 K/mm3 (4.5-10.0)
[2024-08-30] MEDS: METOCLOPRAMIDE HCL 10 MG TABLET PO ×4 (05:57→22:06)
[2024-08-30 06:16] LABS: Anion Gap 5 mmol/L (4-12); Blood Urea Nitrogen 18 mg/dL (9-20); Calcium 8.0 mg/dL (8.4-10.2); Carbon Dioxide 23 mmol/L (22-30); Chloride 101 mmol/L (98-107); Estimated CRCL calculation 66 ml/min; Estimated Glomerular Filt Rate > 60; Glucose 67 mg/dL (65-110); Potassium 4.5 mmol/L (3.4-5.0); Sodium 129 mmol/L (137-145)
[2024-08-30] MEDS: DEXTROSE 50% 25 GM/50 ML SYRINGE IV PUSH (07:45)
[2024-08-30] MEDS: PROMETHAZINE HCL 25 MG TABLET BY MOUTH (09:08)
[2024-08-30] MEDS: POTASSIUM CHLORIDE 20 MEQ PACKET (FOR LIQUID) 40 MEQ FEED TUBE (09:09)
[2024-08-30] MEDS: PANTOPRAZOLE 40 MG TABLET PO ×2 (09:12→22:07)
[2024-08-30] MEDS: CALCIUM CARBONATE (TUMS) 500 MG (200 MG ELEMENTAL) FEED TUBE ×2 (09:12→17:41)
[2024-08-30] MEDS: MEGESTROL ACETATE (*CHEMO) ORAL SUSP 40 MG/ML SYR 400 MG PO ×2 (09:18→17:41)
[2024-08-30] MEDS: ENOXAPARIN 40 MG/0.4 ML SYRINGE SUB-Q (09:19)
--- NOTE | 2024-08-30 09:21 | PCDIET ---
Nutrition note: Stopped tube feeding Jevity 1.5 @ 20 ml/h because pt complained of stomach pain, vomiting and nausea. Pt describes very early satiety. Even after 2 juices he feels totally full and says he eats a few bites of food and is so full he can't eat anymore. This has been going on for 4 months. Timur and Arturo are on board. Discussed with Dr Brown. Recommend short term PPN starting at 40 ml/h and advance as tolerated to 70 ml/h. Recommend phosphorus and magnesium labs for monitoring of refeeding syndrome. Potassium okay today.
--- NOTE | 2024-08-30 09:49 | PCOTNOTE ---
attempted to see Patient at this time. Patient states he has had a low blood sugar this morning, feels horrible and now is nauseated and vomiting. Patient refuses to participate in therapy services and states, he is sick now so will not be leaving, so don't worry about it.
--- NOTE | 2024-08-30 13:09 | PCPTNOTE ---
Patient declined PT stating he does not feel well. Patient states he has nausea and vomiting and unable to participate in PT at this time. PT will continue to follow.
[2024-08-30 13:59] VITALS: BP 114/79; PULSE 116; RESP 16; TEMP 37; O2SAT 96
[2024-08-30 14:49] LABS: Hematocrit 37.4 % (42.0-52.0); Hemoglobin 12.2 g/dL (14.0-18.0); Immature Granulocyte Percent A 0.4 % (0-0.5); Lymphocytes Absolute Auto 0.79 K/mm3 (0.9-3.2); Mean Corpuscular HGB Conc 32.6 g/dl (32-36); Mean Corpuscular Hemoglobin 29.8 pg (26-34); Mean Corpuscular Volume 91.2 fl (80-100); Nucleated Red Blood Cells Absolute Auto 0.000 K/mm3 (0.0-0.012); Nucleated Red Blood Cells Perc 0.0 % (0.0-0.2); Platelet Count Result 191 k/mm3 (150-375); Red Blood Count 4.10 M/mm3 (4.6-6.20); White Blood Count 7.2 K/mm3 (4.5-10.0)
[2024-08-30] MEDS: FAT EMULSIONS IV 20% 250 ML 20.83 ML IVPB (14:50)
[2024-08-30] MEDS: AMINO ACIDS 4.25%/D5W/LYTES/CA 1,000 ML 80 ML IV CONT (14:50)
[2024-08-30 15:00] LABS: Partial Thromboplastin Time 35.3 Seconds (22.3-36.8)
[2024-08-30 15:15] LABS: Alanine Aminotransferase 18 U/L (6-50); Albumin Level 2.3 g/dL (3.5-5.1); Alkaline Phosphatase 118 U/L (38-126); Anion Gap 6 mmol/L (4-12); Aspartate Amino Transferase 22 U/L (17-59); Bilirubin,Total 0.9 mg/dL (0.2-1.3); Blood Urea Nitrogen 18 mg/dL (9-20); Calcium 8.1 mg/dL (8.4-10.2); Carbon Dioxide 23 mmol/L (22-30); Chloride 101 mmol/L (98-107); Estimated CRCL calculation 70 ml/min; Estimated Glomerular Filt Rate > 60; Glucose 70 mg/dL (65-110); Magnesium 1.7 mg/dL (1.6-2.3); Potassium 5.1 mmol/L (3.4-5.0); Sodium 130 mmol/L (137-145); Total Protein 4.7 g/dL (6.3-8.2)
[2024-08-30 17:43] LABS: Transferrin < 80 mg/dL (206-381)
[2024-08-30 20:00] VITALS: PULSE 111; RESP 14; O2SAT 95
[2024-08-30 21:21] VITALS: BP 113/71; PULSE 111; RESP 14; TEMP 37.1; O2SAT 95
[2024-08-31] MEDS: AMINO ACIDS 4.25%/D5W/LYTES/CA 1,000 ML 80 ML IV CONT ×2 (03:48→15:02)
[2024-08-31] MEDS: METOCLOPRAMIDE HCL 10 MG TABLET PO ×4 (05:37→21:22)
[2024-08-31 05:41] VITALS: BP 110/68; PULSE 101; RESP 14; TEMP 36.7; O2SAT 95
[2024-08-31 06:02] LABS: Hematocrit 31.0 % (42.0-52.0); Hemoglobin 10.4 g/dL (14.0-18.0); Immature Granulocyte Percent A 0.5 % (0-0.5); Lymphocytes Absolute Auto 0.86 K/mm3 (0.9-3.2); Mean Corpuscular HGB Conc 33.5 g/dl (32-36); Mean Corpuscular Hemoglobin 30.7 pg (26-34); Mean Corpuscular Volume 91.4 fl (80-100); Nucleated Red Blood Cells Absolute Auto 0.000 K/mm3 (0.0-0.012); Nucleated Red Blood Cells Perc 0.0 % (0.0-0.2); Platelet Count Result 157 k/mm3 (150-375); Red Blood Count 3.39 M/mm3 (4.6-6.20); White Blood Count 8.2 K/mm3 (4.5-10.0)
[2024-08-31 07:19] LABS: Alanine Aminotransferase 18 U/L (6-50); Albumin Level 2.0 g/dL (3.5-5.1); Alkaline Phosphatase 90 U/L (38-126); Anion Gap 4 mmol/L (4-12); Aspartate Amino Transferase 19 U/L (17-59); Bilirubin,Total 0.5 mg/dL (0.2-1.3); Blood Urea Nitrogen 19 mg/dL (9-20); Calcium 7.8 mg/dL (8.4-10.2); Carbon Dioxide 23 mmol/L (22-30); Chloride 98 mmol/L (98-107); Estimated CRCL calculation 86 ml/min; Estimated Glomerular Filt Rate > 60; Glucose 112 mg/dL (65-110); Magnesium 1.8 mg/dL (1.6-2.3); Potassium 4.4 mmol/L (3.4-5.0); Sodium 125 mmol/L (137-145); Total Protein 4.3 g/dL (6.3-8.2)
--- NOTE | 2024-08-31 07:56 | P.PNIM_ITS ---
Progress Note: A&P Assessment and Plan (1) Status post insertion of percutaneous endoscopic gastrostomy (PEG) tube: Code(s): Z93.1 - Gastrostomy status Status: Acute Assessment and Plan: On 08/25/2024 by GI G-tube placed for severe malnutrition. Patient taking orally now Okay these G-tube for feeds and medications (2) Hypokalemia: Code(s): E87.6 - Hypokalemia Status: Acute Assessment and Plan: resolved (3) Hyponatremia: Code(s): E87.1 - Hypo-osmolality and hyponatremia Status: Acute Assessment and Plan: NA 131 monitor (4) Hypocalcemia: Code(s): E83.51 - Hypocalcemia Status: Acute Assessment and Plan: tums (5) Hypotension: Code(s): I95.9 - Hypotension, unspecified Status: Acute Assessment and Plan: Likely due to dehydration and electrolyte imbalance Replete calcium stable (6) Protein-calorie malnutrition, severe: Code(s): E43 - Unspecified severe protein-calorie malnutrition Status: Acute Assessment and Plan: Encourage oral and tube feeds Nutrition consulted Continue Megasetrol Continue home Reglan and Carafate PT and OT (7) half-way (current) use of anticoagulants: Code(s): Z79.01 - half-way (current) use of anticoagulants Status: Acute Assessment and Plan: History of DVT and PE Does not appear to be on current anticoagulation (8) Adenocarcinoma of cecum: Onset Date: ~01/2023 Code(s): C18.0 - Malignant neoplasm of cecum Status: Chronic Assessment and Plan: Ct on 07/31/24 Findings within the chest, abdomen and pelvis which demonstrate a positive res ponse to treatment See plan above (9) Nausea and vomiting in adult: Code(s): R11.2 - Nausea with vomiting, unspecified Status: Acute Assessment and Plan: possible cyclic vomiting Synd improving UDS positive for Marijuana resolved on Reglan GI on board Hypoglycemia, resolving nwo on PPN monitor one more day If repeats will start and discharge on Tube feeds DVT prophylaxis on Sq Lovenox Subjective Date/time seen: 08/30/24 1400 Interval history: comofortable at bedside not tolerating tube feeding, started on PPN and will discuss with GI about making the PEG Jejunostomy tube to effect feeding. Review of Systems Review of Systems: 12 systems were reviewed and are negativ e except for as per HPI. Exam Narrative: General: Chronically ill, no acute distress, cachectic HEENT: normocephalic, atraumatic. Mucous membranes moist. EOMI, PERRLA, bilateral sclera anicteric, no conjunctival injection. Neck supple without JVD, lymphadenopathy, or bruit. Respiratory: clear to ascultation bilaterally. No rales/rhonic/wheezes. Cardiovascular: Regular rate and rhythm, normal S1-S2 upon ascultation. No murmurs, rubs, or clicks. PMI is nondisplaced, capillary refill less than 3 second. Abdomen: Soft, round, no pulsatile masses, nondistended and nontender. No rebound, no guarding. No CVA tenderness, no hepatosplenomegaly. Bowel sounds present to all four quadrants. No high pitch or tinkling sounds, resonant to percussion. G-tube in place Extremities: No cyanosis, clubbing, or edema present. Pulses are palpable 2/2. Active ROM to all four extremities. Neuro: Alert and orientated x 4. PERRLA. Cranial nerves 2-12 intact without focal deficit. Skin: Warm, dry, and intact, without rash, erythema, or lesion. Psych: pleasant, cooperative, normal speech, normal affect, no hallucinations, no dysarthia Objective Data Vital Signs Vital Signs: Vital Signs - 24 hr 08/30/24 13:59 08/30/24 20:00 08/30/24 21:21 Temperature 98.6 F 98.8 F Pulse Rate 116 H 111 H 111 H Respiratory Rate 16 14 14 Blood Pressure 114/79 113/71 Pulse Oximetry 96 95 95 Oxygen Delivery Room Air 08/31/24 05:41 Temperature 98.1 F Pulse Rate 101 H Respiratory Rate 14 Blood Pressure 110/68 Pulse Oximetry 95 Oxygen Delivery Intake/Output Intake/Output: Intake & Output 08/28/24 08/29/24 08/30/24 08/31/24 23:59 23:59 23:59 23:59 Intake Total 1870 20 236 1250 Output Total 480 330 550 Balance 7232 -741 -268 1250 Meds/Results Medications: Active Medications Generic Name Dose Route Start Last Admin Trade Name Freq PRN Reason Stop Dose Admin Acetaminophen 650 mg 08/25/24 14:38 Acetaminophen 325 Mg Tablet PO Q4H PRN Mild Pain (1-3) or Fever Hydrocodone Bitart/Acetaminophen 1 tab 08/25/24 14:38 08/30/24 17:47 Hydrocodone/Acetaminophen (*Crx) 5-325 Mg Tablet PO 1 tab Q4H PRN Administration Moderate Pain (4-6) Calcium Carbonate 200 mg 08/28/24 17:00 08/30/24 17:41 Calcium Carbonate (Tums) 500 Mg (200 Mg Elemental) FEED TUBE 200 mg BID KULDIP Administration Dextrose 12.5 gm 08/30/24 07:17 08/30/24 07:45 Dextrose 50% 25 Gm/50 Ml Syringe IV PUSH 12.5 gm PRN PRN Administration Hypoglycemia Protocol Docusate Sodium 100 mg 08/25/24 17:00 08/30/24 17:38 Docusate Sodium 100 Mg Capsule PO Not Given BID KULDIP Enoxaparin Sodium 40 mg 08/28/24 09:00 08/30/24 09:19 Enoxaparin 40 Mg/0.4 Ml Syringe SUB-Q 40 mg QAM KULDIP Administration Glucagon 1 mg 08/30/24 07:17 Glucagon For Inj 1 Mg Vial IM PRN PRN Hypoglycemia Protocol Glucose 15 gm 08/30/24 07:17 Glucose Oral Gel 15 Gm Of Glucse In 37.5 Gm Tube PO PRN PRN Hypoglycemia Protocol Dextrose 1,000 mls @ 100 mls/hr 08/30/24 07:17 Dextrose 5% 1,000 Ml IVPB PRN PRN Hypoglycemia Protocol Dextrose 1,000 mls @ 50 mls/hr 08/30/24 14:11 Dextrose 10% IV CONT .Q20H PRN if PN is interrupted Fat Emulsion Intravenous 250 mls @ 20.833 mls/hr 08/30/24 15:00 08/31/24 02:51 Lipids 20% IVPB Infused Q24H KULDIP Infusion Amino Acids/Electrolytes/Dextrose 1,000 mls @ 80 mls/hr 08/30/24 15:00 03:48 Clinimix E 4.25%/5% Solution IV CONT 80 mls/hr .[id number] KULDIP Administration Protocol Insulin Human Regular 2 - 5 units 08/30/24 18:00 08/31/24 05:36 Insulin Human Regular (*Bkc) 100 Units/Ml SUB-Q Not Given Q6HR [facility] Protocol Megestrol Acetate 400 mg 08/25/24 17:00 08/30/24 17:41 Megestrol Acetate (*Chemo) Oral Susp 40 Mg/Ml Syr PO 400 mg BID KULDIP Administration Metoclopramide HCl 10 mg 08/27/24 11:30 08/31/24 05:37 Metoclopramide Hcl 10 Mg Tablet PO 10 mg ACHS KULDIP Administration Morphine Sulfate 2 mg 08/25/24 14:38 Morphine Sulfate (*Crx) 2 Mg/Ml Inj IV PUSH Q4H PRN Pain Rated 7-10 Pantoprazole Sodium 40 mg 08/25/24 21:00 08/30/24 22:07 Pantoprazole 40 Mg Tablet PO 40 mg Q12HR KULDIP Administration Potassium Chloride 40 meq 08/27/24 09:00 08/30/24 09:09 Potassium Chloride 20 Meq Packet (For Liquid) FEED TUBE 40 meq DAILY KULDIP Administration Promethazine HCl 25 mg 08/25/24 23:15 08/30/24 09:08 Promethazine Hcl 25 Mg Tablet BY MOUTH 25 mg Q6H PRN Administration NAUSEA/VOMITING Labs Labs: Laboratory Results - last 24 hr 08/30/24 08/30/24 08/30/24 07:58 11:49 14:37 WBC 7.2 RBC 4.10 L Hgb 12.2 L Hct 37.4 L MCV 91.2 MCH 29.8 MCHC 32.6 RDW 17.9 H Plt Count 191 MPV 9.0 Immature Gran % (Auto) 0.4 Neut % (Auto) 84.2 H Lymph % (Auto) 10.9 L [place] % (Auto) 4.3 Eos % (Auto) 0.1 Baso % (Auto) 0.1 L Lymph # (Auto) 0.79 L [place] # (Auto) 0.3 Eos # (Auto) 0.0 Baso # (Auto) 0.0 Abs Immat Gran (auto) 0.03 Absolute Neuts (auto) 6.1 Absolute Nucleated RBC 0.000 Nucleated RBC % 0.0 APTT 35.3 Sodium 130 L Potassium 5.1 H Chloride 101 Carbon Dioxide 23 Anion Gap 6 BUN 18 Creatinine 0.58 L Estim Creat Clear Calc 70 Estimated GFR > 60 Glucose 70 POC Capillary Glucose 155 H 65 Calcium 8.1 L Phosphorus Magnesium 1.7 Transferrin < 80 L Total Bilirubin 0.9 AST 22 ALT 18 Alkaline Phosphatase 118 Total Protein 4.7 L Albumin 2.3 L 08/30/24 08/30/24 08/31/24 18:20 23:35 04:54 WBC RBC Hgb Hct MCV MCH MCHC RDW Plt Count MPV Immature Gran % (Auto) Neut % (Auto) Lymph % (Auto) [place] % (Auto) Eos % (Auto) Baso % (Auto) Lymph # (Auto) [place] # (Auto) Eos # (Auto) Baso # (Auto) Abs Immat Gran (auto) Absolute Neuts (auto) Absolute Nucleated RBC Nucleated RBC % APTT Sodium Potassium Chloride Carbon Dioxide Anion Gap BUN Creatinine Estim Creat Clear Calc Estimated GFR Glucose POC Capillary Glucose 123 H 145 H 124 H Calcium Phosphorus Magnesium Transferrin Total Bilirubin AST ALT Alkaline Phosphatase Total Protein Albumin 08/31/24 05:53 WBC 8.2 RBC 3.39 L Hgb 10.4 L Hct 31.0 L MCV 91.4 MCH 30.7 MCHC 33.5 RDW 17.8 H Plt Count 157 MPV 8.7 Immature Gran % (Auto) 0.5 Neut % (Auto) 84.4 H Lymph % (Auto) 10.5 L [place] % (Auto) 4.2 Eos % (Auto) 0.2 Baso % (Auto) 0.2 Lymph # (Auto) 0.86 L [place] # (Auto) 0.3 Eos # (Auto) 0.0 Baso # (Auto) 0.0 Abs Immat Gran (auto) 0.04 H Absolute Neuts (auto) 6.9 H Absolute Nucleated RBC 0.000 Nucleated RBC % 0.0 APTT Sodium 125 L Potassium 4.4 Chloride 98 Carbon Dioxide 23 Anion Gap 4 BUN 19 Creatinine 0.46 L Estim Creat Clear Calc 86 Estimated GFR > 60 Glucose 112 H POC Capillary Glucose Calcium 7.8 L Phosphorus 3.3 Magnesium 1.8 Transferrin Total Bilirubin 0.5 AST 19 ALT 18 Alkaline Phosphatase 90 Total Protein 4.3 L Albumin 2.0 L Quality VTE Prophylaxis VTE prophylaxis: mechanical ordered and pharmacologic ordered
[2024-08-31] MEDS: PANTOPRAZOLE 40 MG TABLET PO ×2 (08:19→21:22)
[2024-08-31] MEDS: MEGESTROL ACETATE (*CHEMO) ORAL SUSP 40 MG/ML SYR 400 MG PO ×2 (08:20→16:44)
[2024-08-31] MEDS: ENOXAPARIN 40 MG/0.4 ML SYRINGE SUB-Q (08:20)
[2024-08-31] MEDS: POTASSIUM CHLORIDE 20 MEQ PACKET (FOR LIQUID) 40 MEQ FEED TUBE (08:23)
[2024-08-31] MEDS: CALCIUM CARBONATE (TUMS) 500 MG (200 MG ELEMENTAL) FEED TUBE ×2 (08:23→16:46)
--- NOTE | 2024-08-31 10:50 | PCDIET ---
Nutrition note: Clinmix 4.24/5 with lipids running at 80 ml/h. Tube feeding is on hold. Ate a few bites breakfast which is usual. Pt says he is feeling a lot better with PPN. GI is re-consulted, possible J-tube per MD notes. Dietitian team will continue to monitor and give recommendations.
--- NOTE | 2024-08-31 12:31 | P.PNIM_ITS ---
Progress Note: A&P Assessment and Plan (1) Status post insertion of percutaneous endoscopic gastrostomy (PEG) tube: Code(s): Z93.1 - Gastrostomy status Status: Acute Assessment and Plan: On 08/25/2024 by GI G-tube placed for severe malnutrition. not tolereatign tube feeds CT AP to rule out SBO for possible Jejunostomy tube contingent on CT AP findings (2) Hypokalemia: Code(s): E87.6 - Hypokalemia Status: Acute Assessment and Plan: resolved (3) Hyponatremia: Code(s): E87.1 - Hypo-osmolality and hyponatremia Status: Acute Assessment and Plan: NA 125 IVF and monitor (4) Hypocalcemia: Code(s): E83.51 - Hypocalcemia Status: Acute Assessment and Plan: tums (5) Hypotension: Code(s): I95.9 - Hypotension, unspecified Status: Acute Assessment and Plan: Likely due to dehydration and electrolyte imbalance Replete calcium stable (6) Protein-calorie malnutrition, severe: Code(s): E43 - Unspecified severe protein-calorie malnutrition Status: Acute Assessment and Plan: Encourage oral and tube feeds Nutrition consulted Continue Megasetrol Continue home Reglan and Carafate PT and OT (7) residential (current) use of anticoagulants: Code(s): Z79.01 - superintendent container terminal (current) use of anticoagulants Status: Acute Assessment and Plan: History of DVT and PE Does not appear to be on current anticoagulation (8) Adenocarcinoma of cecum: Onset Date: ~01/2023 Code(s): C18.0 - Malignant neoplasm of cecum Status: Chronic Assessment and Plan: Ct on 07/31/24 Findings within the chest, abdomen and pelvis which demonstrate a positive response to treatment See plan above (9) Nausea and vomiting in adult: Code(s): R11.2 - Nausea with vomiting, unspecified Status: Acute Assessment and Plan: possible cyclic vomiting Synd improving UDS positive for Marijuana resolved on Reglan GI on board Hypoglycemia, resolved on PPN CT AP ordered to rule out obstriction monitor DVT prophylaxis on Sq Lovenox Subjective Date/time seen: 08/31/24 12:31 Interval history: comofortable at bedside CT AP ordered today to rule out Obstruction Review of Systems Review of Systems: 12 systems were reviewed and are negativ e except for as per HPI. Exam Narrative: General: Chronically ill, no acute distress, cachectic HEENT: normocephalic, atraumatic. Mucous membranes moist. EOMI, PERRLA, bilateral sclera anicteric, no conjunctival injection. Neck supple without JVD, lymphadenopathy, or bruit. Respiratory: clear to ascultation bilaterally. No rales/rhonic/wheezes. Cardiovascular: Regular rate and rhythm, normal S1-S2 upon ascultation. No murmurs, rubs, or clicks. PMI is nondisplaced, capillary refill less than 3 second. Abdomen: Soft, round, no pulsatile masses, nondistended and nontender. No rebound, no guarding. No CVA tenderness, no hepatosplenomegaly. Bowel sounds present to all four quadrants. No high pitch or tinkling sounds, resonant to percussion. G-tube in place Extremities: No cyanosis, clubbing, or edema present. Pulses are palpable 2/2. Active ROM to all four extremities. Neuro: Alert and orientated x 4. PERRLA. Cranial nerves 2-12 intact without focal deficit. Skin: Warm, dry, and intact, without rash, erythema, or lesion. Psych: pleasant, cooperative, normal speech, normal affect, no hallucinations, no dysarthia Objective Data Vital Signs Vital Signs: Vital Signs - 24 hr 08/30/24 13:59 08/30/24 20:00 08/30/24 21:21 Temperature 98.6 F 98.8 F Pulse Rate 116 H 111 H 111 H Respiratory Rate 16 14 14 Blood Pressure 114/79 113/71 Pulse Oximetry 96 95 95 Oxygen Delivery Room Air 08/31/24 05:41 Temperature 98.1 F Pulse Rate 101 H Respiratory Rate 14 Blood Pressure 110/68 Pulse Oximetry 95 Oxygen Delivery Intake/Output Intake/Output: Intake & Output 08/28/24 08/29/24 08/30/24 08/31/24 23:59 23:59 23:59 23:59 Intake Total 1870 20 236 1370 Output Total 480 330 550 300 Balance 1390 -310 -314 1070 Meds/Results Medications: Active Medications Generic Name Dose Route Start Last Admin Trade Name Freq PRN Reason Stop Dose Admin Acetaminophen 650 mg 08/25/24 14:38 Acetaminophen 325 Mg Tablet PO Q4H PRN Mild Pain (1-3) or Fever Hydrocodone Bitart/Acetaminophen 1 tab 08/25/24 14:38 08/30/24 17:47 Hydrocodone/Acetaminophen (*Crx) 5-325 Mg Tablet PO 1 tab Q4H PRN Administration Moderate Pain (4-6) Calcium Carbonate 200 mg 08/28/24 17:00 08/31/24 08:23 Calcium Carbonate (Tums) 500 Mg (200 Mg Elemental) FEED TUBE 200 mg BID KULDIP Administration Dextrose 12.5 gm 08/30/24 07:17 08/30/24 07:45 Dextrose 50% 25 Gm/50 Ml Syringe IV PUSH 12.5 gm PRN PRN Administration Hypoglycemia Protocol Docusate Sodium 100 mg 08/25/24 17:00 08/31/24 08:18 Docusate Sodium 100 Mg Capsule PO Not Given BID KULDIP Enoxaparin Sodium 40 mg 08/28/24 09:00 08/31/24 08:20 Enoxaparin 40 Mg/0.4 Ml Syringe SUB-Q 40 mg QAM KULDIP Administration Glucagon 1 mg 08/30/24 07:17 Glucagon For Inj 1 Mg Vial IM PRN PRN Hypoglycemia Protocol Glucose 15 gm 08/30/24 07:17 Glucose Oral Gel 15 Gm Of Glucse In 37.5 Gm Tube PO PRN PRN Hypoglycemia Protocol Dextrose 1,000 mls @ 100 mls/hr 08/30/24 07:17 Dextrose 5% 1,000 Ml IVPB PRN PRN Hypoglycemia Protocol Dextrose 1,000 mls @ 50 mls/hr 08/30/24 14:11 Dextrose 10% IV CONT .Q20H PRN if PN is interrupted Fat Emulsion Intravenous 250 mls @ 20.833 mls/hr 08/30/24 15:00 08/31/24 0 2:51 Lipids 20% IVPB Infused Q24H KULDIP Infusion Amino Acids/Electrolytes/Dextrose 1,000 mls @ 80 mls/hr 08/30/24 15:00 08/31/24 03:48 Clinimix E 4.25%/5% Solution IV CONT 80 mls/hr .[id number] KULDIP Administration Protocol Insulin Human Regular 2 - 5 units 08/30/24 18:00 08/31/24 12:09 Insulin Human Regular (*Bkc) 100 Units/Ml SUB-Q Not Given Q6HR KULDIP Protocol Megestrol Acetate 400 mg 08/25/24 17:00 08/31/24 08:20 Megestrol Acetate (*Chemo) Oral Susp 40 Mg/Ml Syr PO 400 mg BID KULDIP Administration Metoclopramide HCl 10 mg 08/27/24 11:30 08/31/24 10:45 Metoclopramide Hcl 10 Mg Tablet PO 10 mg ACHS KULDIP Administration Morphine Sulfate 2 mg 08/25/24 14:38 Morphine Sulfate (*Crx) 2 Mg/Ml Inj IV PUSH Q4H PRN Pain Rated 7-10 Ondansetron HCl 4 mg 08/31/24 12:25 Ondansetron Inj 4 Mg/2 Ml Vial IV PUSH Q4H PRN Nausea And Vomiting Pantoprazole Sodium 40 mg 08/25/24 21:00 08/31/24 08:19 Pantoprazole 40 Mg Tablet PO 40 mg Q12HR KULDIP Administration Potassium Chloride 40 meq 08/27/24 09:00 08/31/24 08:23 Potassium Chloride 20 Meq Packet (For Liquid) FEED TUBE 40 meq DAILY KULDIP Administration Promethazine HCl 25 mg 08/25/24 23:15 08/30/24 09:08 Promethazine Hcl 25 Mg Tablet BY MOUTH 25 mg Q6H PRN Administration NAUSEA/VOMITING Labs Labs: Laboratory Results - last 24 hr 08/30/24 08/30/24 08/30/24 14:37 18:20 23:35 WBC 7.2 RBC 4.10 L Hgb 12.2 L Hct 37.4 L MCV 91.2 MCH 29.8 MCHC 32.6 RDW 17.9 H Plt Count 191 MPV 9.0 Immature Gran % (Auto) 0.4 Neut % (Auto) 84.2 H Lymph % (Auto) 10.9 L [place] % (Auto) 4.3 Eos % (Auto) 0.1 Baso % (Auto) 0.1 L Lymph # (Auto) 0.79 L [place] # (Auto) 0.3 Eos # (Auto) 0.0 Baso # (Auto) 0.0 Abs Immat Gran (auto) 0.03 Absolute Neuts (auto) 6.1 Absolute Nucleated RBC 0.000 Nucleated RBC % 0.0 APTT 35.3 Sodium 130 L Potassium 5.1 H Chloride 101 Carbon Dioxide 23 Anion Gap 6 BUN 18 Creatinine 0.58 L Estim Creat Clear Calc 70 Estimated GFR > 60 Glucose 70 POC Capillary Glucose 123 H 145 H Calcium 8.1 L Phosphorus Magnesium 1.7 Transferrin < 80 L Total Bilirubin 0.9 AST 22 ALT 18 Alkaline Phosphatase 118 Total Protein 4.7 L Albumin 2.3 L 08/31/24 08/31/24 08/31/24 04:54 05:53 11:37 WBC 8.2 RBC 3.39 L Hgb 10.4 L Hct 31.0 L MCV 91.4 MCH 30.7 MCHC 33.5 RDW 17.8 H Plt Count 157 MPV 8.7 Immature Gran % (Auto) 0.5 Neut % (Auto) 84.4 H Lymph % (Auto) 10.5 L [place] % (Auto) 4.2 Eos % (Auto) 0.2 Baso % (Auto) 0.2 Lymph # (Auto) 0.86 L [place] # (Auto) 0.3 Eos # (Auto) 0.0 Baso # (Auto) 0.0 Abs Immat Gran (auto) 0.04 H Absolute Neuts (auto) 6.9 H Absolute Nucleated RBC 0.000 Nucleated RBC % 0.0 APTT Sodium 125 L Potassium 4.4 Chloride 98 Carbon Dioxide 23 Anion Gap 4 BUN 19 Creatinine 0.46 L Estim Creat Clear Calc 86 Estimated GFR > 60 Glucose 112 H POC Capillary Glucose 124 H 102 Calcium 7.8 L Phosphorus 3.3 Magnesium 1.8 Transferrin Total Bilirubin 0.5 AST 19 ALT 18 Alkaline Phosphatase 90 Total Protein 4.3 L Albumin 2.0 L Quality VTE Prophylaxis VTE prophylaxis: mechanical ordered and pharmacologic ordered
[2024-08-31 13:16] LABS: Triglycerides 48 mg/dL (<150)
[2024-08-31 14:00] VITALS: BP 114/75; PULSE 117; RESP 16; TEMP 36.7; O2SAT 97
--- NOTE | 2024-08-31 14:09 | PCPTNOTE ---
Attempted PT treatment in AM however patient refused at that time stating he walker with OT in the room prior to PT and wanted to rest. Patient refused PT again this afternoon stating he did not feel well and he is being asked to do too much. Once again I explained the purpose of participating in both OT and PT to improve strength, endurance and mobility to improve functional independence. Patient voices understanding but continue to refuse.
[2024-08-31] MEDS: FAT EMULSIONS IV 20% 250 ML 20.83 ML IVPB (15:02)
[2024-08-31] MEDS: DOCUSATE SODIUM 100 MG CAPSULE PO (16:45)
[2024-08-31 22:00] VITALS: BP 112/73; PULSE 107; RESP 20; TEMP 36.6; O2SAT 97
[2024-09-01] MEDS: AMINO ACIDS 4.25%/D5W/LYTES/CA 1,000 ML 80 ML IV CONT ×2 (03:39→15:45)
[2024-09-01 06:00] VITALS: BP 102/54; PULSE 100; RESP 16; TEMP 36.3; O2SAT 94
[2024-09-01] MEDS: METOCLOPRAMIDE HCL 10 MG TABLET PO ×3 (06:13→17:11)
[2024-09-01 06:18] LABS: Hematocrit 30.1 % (42.0-52.0); Hemoglobin 10.0 g/dL (14.0-18.0); Immature Granulocyte Percent A 0.4 % (0-0.5); Lymphocytes Absolute Auto 0.83 K/mm3 (0.9-3.2); Mean Corpuscular HGB Conc 33.2 g/dl (32-36); Mean Corpuscular Hemoglobin 30.0 pg (26-34); Mean Corpuscular Volume 90.4 fl (80-100); Nucleated Red Blood Cells Absolute Auto 0.000 K/mm3 (0.0-0.012); Nucleated Red Blood Cells Perc 0.0 % (0.0-0.2); Platelet Count Result 160 k/mm3 (150-375); Red Blood Count 3.33 M/mm3 (4.6-6.20); White Blood Count 7.0 K/mm3 (4.5-10.0)
[2024-09-01 06:51] LABS: Alanine Aminotransferase 16 U/L (6-50); Albumin Level 2.0 g/dL (3.5-5.1); Alkaline Phosphatase 86 U/L (38-126); Anion Gap 6 mmol/L (4-12); Aspartate Amino Transferase 21 U/L (17-59); Bilirubin,Total 0.4 mg/dL (0.2-1.3); Blood Urea Nitrogen 18 mg/dL (9-20); Calcium 7.8 mg/dL (8.4-10.2); Carbon Dioxide 23 mmol/L (22-30); Chloride 100 mmol/L (98-107); Estimated CRCL calculation 86 ml/min; Estimated Glomerular Filt Rate > 60; Glucose 102 mg/dL (65-110); Magnesium 2.0 mg/dL (1.6-2.3); Potassium 4.1 mmol/L (3.4-5.0); Sodium 129 mmol/L (137-145); Total Protein 4.4 g/dL (6.3-8.2)
[2024-09-01] MEDS: POTASSIUM CHLORIDE 20 MEQ PACKET (FOR LIQUID) 40 MEQ FEED TUBE (08:34)
[2024-09-01] MEDS: CALCIUM CARBONATE (TUMS) 500 MG (200 MG ELEMENTAL) FEED TUBE ×2 (08:35→17:11)
[2024-09-01] MEDS: ENOXAPARIN 40 MG/0.4 ML SYRINGE SUB-Q (08:35)
[2024-09-01] MEDS: MEGESTROL ACETATE (*CHEMO) ORAL SUSP 40 MG/ML SYR 400 MG PO ×2 (08:35→17:11)
[2024-09-01] MEDS: DOCUSATE SODIUM 100 MG CAPSULE PO ×2 (08:35→17:11)
[2024-09-01] MEDS: PANTOPRAZOLE 40 MG TABLET PO (08:35)
--- NOTE | 2024-09-01 12:03 | P.CONGS_ITS ---
Assessment and Plan Assessment and plan (1) Small bowel obstruction: Code(s): K56.609 - Unspecified intestinal obstruction, unspecified as to partial versus complete obstruction Status: Acute Assessment and Plan: Patient had PEG tube placed on 08/25/2024 for malnutrition. Albumin 2.0. Per chart review, it seems as though patient was doing well for few days with this, but recently developed nausea and vomiting. He experienced this with oral intake, as well as tube feedings. He did have a bowel movement this morning. CT of the abdomen and pelvis was obtained yesterday and demonstrated multiple severely dilated loops of small bowel containing air and fluid with a transition point in the right upper quadrant and collapse of distal bowel. Plan to keep patient NPO. Will order NG tube placement with obstructive series tomorrow morning. (2) Status post insertion of percutaneous endoscopic gastrostomy (PEG) tube: Code(s): Z93.1 - Gastrostomy status Status: Acute Plan Discussed patient's case and plan of care with Dr. Marte. History of Present Illness Consult details Consult date: 09/01/24 Narrative: Patient is a 63-year-old male with past medical history of DVT, PE, anemia, adenocarcinoma of the cecum (partial right hemicolectomy 2022), gastric ulcers (perforated ulcer repair 2022), and malnutrition with poor oral intake who we have been asked to see in surgical consultation for a small bowel obstruction. Patient presented to the hospital for planned PEG tube placement on 08/25. Patient had a 60 lb weight loss in 3 months due to severe nausea and vomiting from chemotherapy. PEG tube was successfully placed, but the patient continued to have poor feeding tolerance, demonstrated by large gastric residuals and retained contents. Patient failed outpatient ondansetron, so GI put him on IV metoclopramide. Patient was advanced to clear liquid diet. Still had nausea. The following day, patient was feeling better and tolerated a regular diet. GI saw him on the and did not find any residual contents in his stomach after receiving metoclopramide. His labs did demonstrate some hyponatremia. On 08/28 it was reported that patient was doing well and discharge planning was just pending placement. As of today, patient was unable to tolerate tube feeds. He was started on PPNN. Hospitalist discussed with GI the possibility of making the PEG jejunostomy tube to affect feeding. CT was ordered and demonstrated multiple severely dilated loops of small bowel containing air and fluid with transition point in the right upper quadrant and collapse of distal bowel. Upon interview today, patient notes he is still having nausea nd vomiting. He did not eat his breakfast, as he did not see it as appetizing. He did have a BM this morning. He states that abdominal pain is intermittent, but that it is not currently hurting him. Admits to nausea and vomiting with tube feedings, but that medications through the G tube are tolerable. Nausea and vomiting with oral intake. 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 Corneal abrasion Bilateral chronic knee pain Ulcer Blood clot in vein 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, stage II A Perforated gastric ulcer (~01/2023) Colon polyps Neoplasm of ascending colon Osteoarthritis Anemia History of tobacco abuse Marijuana abuse, continuous used for pain control r/t arthritis Surgical History Surgical History (Updated 08/25/24 @ 15:48 by Maria D Griffin, TILE BURNER) History of tonsillectomy History of abdominal surgery (~01/22/23) Extended right hemicolectomy with ileo transverse hand-sewn anastomosis, drainage of multiple right upper quadrant and perigastric abscesses, repair gastric antral perforation, omentoplasty H/O hemicolectomy (~01/22/23) Hepatic abscess (~01/2023) s/p percutaneus drainage Family History Family History Father Acute myocardial infarction, Onset Age: 58 Cancer, Onset Age: 58 unclear primary source, was metastatic at time of diagnosis and was shortly after discovered Hypertension Sibling Cancer brother, not close with family. unknown type. Hypertension Sibling Cancer brother, colon cancer. Grandparent Hypertension Cerebrovascular accident maternal gradfather Grandparent Hypertension Cerebrovascular accident maternal grandma Sibling Chronic obstructive pulmonary disease sister Sibling Chronic obstructive pulmonary disease sister Grandparent Hypertension paternal grandma Grandparent Hypertension paternal grandpa Social History Social History Social History: Currently lives in [place] in [place]. Lives alone with dogs. . Elects family friend, Jamie Sands, as surrogate decision maker. Code Status: Full Code, requesting no prolonged ventilation or permanent G-tube. Okay with temporary NG/OG. Smoking packs per day: 3 Smoking cigarettes per day: 60.0 Years smoked: 45 Smoking pack-years: 135.00 Smoking status: Former smoker Tobacco type: cigarettes Second hand tobacco smoke exposure: No Alcohol intake: never Substance use: current Substance use type: marijuana Other substance usage details: every day Last use: yesterday Do You Feel Safe in your Home?: No Lack of Transportation: No Lack of Food: Never True Current Housing: I Have Housing Concerned About Future Housing: No Difficulty Paying Gas/Electric Bills: No Difficulty Paying for Meds: No Currently Unemployed: No Education: High School Diploma/GED Difficulty w/ Childcare or Family Care: No Living arrangements: alone Additional living arrangements comments: PT LIVES IN HIS [place] AT [facility], USES FRIEND JAMIE'S ADDRESS Occupation/Education: retired Gender identity (if verbalized by the patient): Male Sexual Orientation (if Verbalized by the Patient): Straight or Heterosexual Spiritual care concerns: No Meds Home Medications and Allergies Home Medications ?Medication ?Instructions ?Recorded ?Confirmed ?Type dicyclomine 10 mg capsule 10 mg PO TID #12 caps 05/19/24 08/23/24 Rx ondansetron HCl 4 mg tablet 4 mg PO Q12H PRN nausea and 07/12/24 08/23/24 History vomiting pantoprazole 40 mg tablet,delayed 40 mg PO QAM #30 tabs 07/21/24 08/25/24 Rx release sucralfate 100 mg/mL oral 1 g (10 mL) PO TID #1,000 mL 07/21/24 08/23/24 Rx suspension (Carafate) promethazine 25 mg tablet See Rx Instructions .Route 08/01/24 08/23/24 Rx .COMPLEX #90 tabs megestrol 400 mg/10 mL (40 mg/mL) 400 mg PO BID 08/23/24 08/23/24 History oral suspension Allergies Allergy/AdvReac Type Severity Reaction Status Date / Time Penicillins Allergy Intermediate rash Verified 08/25/24 14:13 Vital Signs Vital Signs - 24 hr 08/31/24 14:00 08/31/24 20:00 08/31/24 22:00 Temperature 98.1 F 97.9 F Pulse Rate 117 H 107 H Respiratory Rate 16 20 Blood Pressure 114/75 112/73 Pulse Oximetry 97 97 Oxygen Delivery Room Air 09/01/24 06:00 09/01/24 08:30 Temperature 97.4 F L Pulse Rate 100 Respiratory Rate 16 Blood Pressure 102/54 L Pulse Oximetry 94 Oxygen Delivery Room Air Exam 2 Narrative: Patient lying in bed. He looks very cachectic and weak. Const: General: comfortable Eyes: General: appearance normal, both eyes and all related structures Resp: Effort & Inspection: normal respiratory effort GI: Inspection: non-distended GI Palp: Yes Firmness to palpation present (GI), No Tenderness to palpation present (GI) and No Guarding due to palpation present (GI) Auscultation: abnormal bowel sounds (hypoactive) Skin: General skin exam: normal color and no rashes or lesions noted Neuro: Sensory Exam: normal sensation Extrem: General: normal to inspection Psych: Mental Status: mental status grossly normal Results Labs 09/01/24 05:58 09/01/24 05:58 Labs: Abnormal lab results 08/31/24 08/31/24 09/01/24 Range/Units 17:58 23:41 05:34 RBC (4.6-6.20) M/mm3 Hgb (14.0-18.0) g/dL Hct (42.0-52.0) % RDW (11.5-14.5) % Neut % (Auto) (45.5-73.1) % Lymph % (Auto) (18.3-44.2) % Baso % (Auto) (0.2-1.2) % Lymph # (Auto) (0.9-3.2) K/mm3 Sodium (137-145) mmol/L Creatinine (0.7-1.3) mg/dL POC Capillary Glucose 108 H 109 H 115 H (65-105) mg/dl Calcium (8.4-10.2) mg/dL Total Protein (6.3-8.2) g/dL Albumin (3.5-5.1) g/dL 09/01/24 09/01/24 Range/Units 05:58 07:54 RBC 3.33 L (4.6-6.20) M/mm3 Hgb 10.0 L (14.0-18.0) g/dL Hct 30.1 L (42.0-52.0) % RDW 17.3 H (11.5-14.5) % Neut % (Auto) 82.1 H (45.5-73.1) % Lymph % (Auto) 11.9 L (18.3-44.2) % Baso % (Auto) 0.0 L (0.2-1.2) % Lymph # (Auto) 0.83 L (0.9-3.2) K/mm3 Sodium 129 L (137-145) mmol/L Creatinine 0.46 L (0.7-1.3) mg/dL POC Capillary Glucose 111 H (65-105) mg/dl Calcium 7.8 L (8.4-10.2) mg/dL Total Protein 4.4 L (6.3-8.2) g/dL Albumin 2.0 L (3.5-5.1) g/dL Diabetes panel 08/31/24 09/01/24 Range/Units 05:53 05:58 Sodium 129 L (137-145) mmol/L Potassium 4.1 (3.4-5.0) mmol/L Chloride 100 (98-107) mmol/L Carbon Dioxide 23 (22-30) mmol/L BUN 18 (9-20) mg/dL Creatinine 0.46 L (0.7-1.3) mg/dL Glucose 102 (65-110) mg/dL Calcium 7.8 L (8.4-10.2) mg/dL AST 21 (17-59) U/L ALT 16 (6-50) U/L Alkaline Phosphatase 86 (38-126) U/L Total Protein 4.4 L (6.3-8.2) g/dL Albumin 2.0 L (3.5-5.1) g/dL Triglycerides 48 (<150) mg/dL Calcium panel 09/01/24 Range/Units 05:58 Calcium 7.8 L (8.4-10.2) mg/dL Phosphorus 3.4 (2.5-4.5) mg/dL Albumin 2.0 L (3.5-5.1) g/dL Pituitary panel 09/01/24 Range/Units 05:58 Sodium 129 L (137-145) mmol/L Potassium 4.1 (3.4-5.0) mmol/L Chloride 100 (98-107) mmol/L Carbon Dioxide 23 (22-30) mmol/L BUN 18 (9-20) mg/dL Creatinine 0.46 L (0.7-1.3) mg/dL Glucose 102 (65-110) mg/dL Calcium 7.8 L (8.4-10.2) mg/dL Adrenal panel 09/01/24 Range/Units 05:58 Sodium 129 L (137-145) mmol/L Potassium 4.1 (3.4-5.0) mmol/L Chloride 100 (98-107) mmol/L Carbon Dioxide 23 (22-30) mmol/L BUN 18 (9-20) mg/dL Creatinine 0.46 L (0.7-1.3) mg/dL Glucose 102 (65-110) mg/dL Calcium 7.8 L (8.4-10.2) mg/dL Total Bilirubin 0.4 (0.2-1.3) mg/dL AST 21 (17-59) U/L ALT 16 (6-50) U/L Alkaline Phosphatase 86 (38-126) U/L Total Protein 4.4 L (6.3-8.2) g/dL Albumin 2.0 L (3.5-5.1) g/dL All other labs normal.
--- NOTE | 2024-09-01 12:11 | PCNFU ---
Nutrition Follow-Up Complete: Severe Protein Calorie Malnutrition as related to inadequate protein energy intake with increased protein energy needs in setting of chronic disease as evidenced by minimal oral intake for > 1-2 months; significant weight loss of 42% (60 ibs) 4 months; severe subcutaneous fat loss(orbital fat pads, triceps) and muscle wasting (temporalis/clavicle) Goal:Meet estimated nutritional needs. Pt meeting goal via PPN Pt current nutrition is NPO, tube feeds held, PPN: Clinimix E 4.25/5 @ 80ml/hr = 1153kcals, 82g protein. Nutrition recommendation: continue with current plan of care at this time Last recorded weight is 45.9 kg. Bowel Motility: +BM 08/31 Labs Reviewed: Hgb:10, HCT:32.1, Alb:2.0, Na:129, Cr:0.4 Meds Noted: megace, reglan, KCL, lovenox Skin: WNL Additional Notes: Pt was started on tube feeds, did not tolerate, not tolerating PO in take at this time either. PPN was started for nutrition and meeting needs. GI following and in room during assessment. Will monitor. Will monitor weight, labs, skin, diet orders, meds every Wednesday and Wednesday.
--- NOTE | 2024-09-01 12:58 | P.PNIM_ITS ---
Progress Note: A&P Assessment and Plan (1) Status post insertion of percutaneous endoscopic gastrostomy (PEG) tube: Code(s): Z93.1 - Gastrostomy status Status: Acute Assessment and Plan: On 08/25/2024 by GI G-tube placed for severe malnutrition. not tolereatign tube feeds Tube feeding (2) Hypokalemia: Code(s): E87.6 - Hypokalemia Status: Acute Assessment and Plan: resolved (3) Hyponatremia: Code(s): E87.1 - Hypo-osmolality and hyponatremia Status: Acute Assessment and Plan: NA 129 IVF and monitor (4) Hypocalcemia: Code(s): E83.51 - Hypocalcemia Status: Acute Assessment and Plan: tums (5) Hypotension: Code(s): I95.9 - Hypotension, unspecified Status: Acute Assessment and Plan: Likely due to dehydration and electrolyte imbalance Replete calcium stable (6) Protein-calorie malnutrition, severe: Code(s): E43 - Unspecified severe protein-calorie malnutrition Status: Acute Assessment and Plan: Encourage oral and tube feeds Nutrition consulted Continue Megasetrol Continue home Reglan and Carafate PT and OT (7) senior care (current) use of anticoagulants: Code(s): Z79.01 - long term care phlebotomist (current) use of anticoagulants Status: Acute Assessment and Plan: History of DVT and PE Does not appear to be on current anticoagulation (8) Adenocarcinoma of cecum: Onset Date: ~01/2023 Code(s): C18.0 - Malignant neoplasm of cecum Status: Chronic Assessment and Plan: Ct on 07/31/24 Findings within the chest, abdomen and pelvis which demonstrate a positive response to treatment See plan above (9) Nausea and vomiting in adult: Code(s): R11.2 - Nausea with vomiting, unspecified Status: Acute Assessment and Plan: possible cyclic vomiting Synd improving UDS positive for Marijuana resolved on Reglan GI on board SBO CT AP showed SBO NPO, continue PPN Gen surgery consulted Hypoglycemia, resolved on PPN CT AP ordered to rule out obstruction monitor DVT prophylaxis on Sq Lovenox Subjective Date/time seen: 09/01/24 12:58 Interval history: comofortable at bedside CT AP showed SBO Review of Systems Review of Systems: 12 systems were reviewed and are negativ e except for as per HPI. Exam Narrative: General: Chronically ill, no acute distress, cachectic HEENT: normocephalic, atraumatic. Mucous membranes moist. EOMI, PERRLA, bilateral sclera anicteric, no conjunctival injection. Neck supple without JVD, lymphadenopathy, or bruit. Respiratory: clear to ascultation bilaterally. No rales/rhonic/wheezes. Cardiovascular: Regular rate and rhythm, normal S1-S2 upon ascultation. No murmurs, rubs, or clicks. PMI is nondisplaced, capillary refill less than 3 second. Abdomen: Soft, round, no pulsatile masses, nondistended and nontender. No rebound, no guarding. No CVA tenderness, no hepatosplenomegaly. Bowel sounds present to all four quadrants. No high pitch or tinkling sounds, resonant to percussion. G-tube in place Extremities: No cyanosis, clubbing, or edema present. Pulses are palpable 2/2. Active ROM to all four extremities. Neuro: Alert and orientated x 4. PERRLA. Cranial nerves 2-12 intact without focal deficit. Skin: Warm, dry, and intact, without rash, erythema, or lesion. Psych: pleasant, cooperative, normal speech, normal affect, no hallucinations, no dysarthia Objective Data Vital Signs Vital Signs: Vital Signs - 24 hr 08/31/24 14:00 08/31/24 20:00 08/31/24 22:00 Temperature 98.1 F 97.9 F Pulse Rate 117 H 107 H Respiratory Rate 16 20 Blood Pressure 114/75 112/73 Pulse Oximetry 97 97 Oxygen Delivery Room Air 09/01/24 06:00 09/01/24 08:30 Temperature 97.4 F L Pulse Rate 100 Respiratory Rate 16 Blood Pressure 102/54 L Pulse Oximetry 94 Oxygen Delivery Room Air Intake/Output Intake/Output: Intake & Output 08/29/24 08/30/24 08/31/24 09/01/24 23:59 23:59 23:59 23:59 Intake Total 20 236 2700.7 1310 Output Total 330 550 900 800 Balance -310 -314 1800.7 510 Meds/Results Medications: Active Medications Generic Name Dose Route Start Last Admin Trade Name Freq PRN Reason Stop Dose Admin Acetaminophen 650 mg 08/25/24 14:38 Acetaminophen 325 Mg Tablet PO Q4H PRN Mild Pain (1-3) or Fever Hydrocodone Bitart/Acetaminophen 1 tab 08/25/24 14:38 08/30/24 17:47 Hydrocodone/Acetaminophen (*Crx) 5-325 Mg Tablet PO 1 tab Q4H PRN Administration Moderate Pain (4-6) Calcium Carbonate 200 mg 08/28/24 17:00 09/01/24 08:35 Calcium Carbonate (Tums) 500 Mg (200 Mg Elemental) FEED TUBE 200 mg BID KULDIP Administration Dextrose 12.5 gm 08/30/24 07:17 08/30/24 07:45 Dextrose 50% 25 Gm/50 Ml Syringe IV PUSH 12.5 gm PRN PRN Administration Hypoglycemia Protocol Docusate Sodium 100 mg 08/25/24 17:00 09/01/24 08:35 Docusate Sodium 100 Mg Capsule PO 100 mg BID KULDIP Administration Enoxaparin Sodium 40 mg 08/28/24 09:00 09/01/24 08:35 Enoxaparin 40 Mg/0.4 Ml Syringe SUB-Q 40 mg QAM KULDIP Administration Glucagon 1 mg 08/30/24 07:17 Glucagon For Inj 1 Mg Vial IM PRN PRN Hypoglycemia Protocol Glucose 15 gm 08/30/24 07:17 Glucose Oral Gel 15 Gm Of Glucse In 37.5 Gm Tube PO PRN PRN Hypoglycemia Protocol Dextrose 1,000 mls @ 100 mls/hr 08/30/24 07:17 Dextrose 5% 1,000 Ml IVPB PRN PRN Hypoglycemia Protocol Dextrose 1,000 mls @ 50 mls/hr 08/30/24 14:11 Dextrose 10% IV CONT .Q20H PRN if PN is interrupted Fat Emulsion Intravenous 250 mls @ 20.833 mls/hr 08/30/24 15:00 09/01/24 03:03 Lipids 20% IVPB Infused Q24H KULDIP Infusion Amino Acids/Electrolytes/Dextrose 1,000 mls @ 80 mls/hr 08/30/24 15:00 09/01/24 03:39 Clinimix E 4.25%/5% Solution IV CONT 80 mls/hr .[id number] KULDIP Administration Protocol Insulin Human Regular 2 - 5 units 08/30/24 18:00 09/01/24 12:14 Insulin Human Regular (*Bkc) 100 Units/Ml SUB-Q Not Given Q6HR [facility] Protocol Megestrol Acetate 400 mg 08/25/24 17:00 09/01/24 08:35 Megestrol Acetate (*Chemo) Oral Susp 40 Mg/Ml Syr PO 400 mg BID KULDIP Administration Metoclopramide HCl 10 mg 08/27/24 11:30 09/01/24 12:15 Metoclopramide Hcl 10 Mg Tablet PO 10 mg ACHS KULDIP Administration Morphine Sulfate 2 mg 08/25/24 14:38 Morphine Sulfate (*Crx) 2 Mg/Ml Inj IV PUSH Q4H PRN Pain Rated 7-10 Ondansetron HCl 4 mg 08/31/24 12:25 Ondansetron Inj 4 Mg/2 Ml Vial IV PUSH Q4H PRN Nausea And Vomiting Pantoprazole Sodium 40 mg 08/25/24 21:00 09/01/24 08:35 Pantoprazole 40 Mg Tablet PO 40 mg Q12HR KULDIP Administration Potassium Chloride 40 meq 08/27/24 09:00 09/01/24 08:34 Potassium Chloride 20 Meq Packet (For Liquid) FEED TUBE 40 meq DAILY KULDIP Administration Promethazine HCl 25 mg 08/25/24 23:15 08/30/24 09:08 Promethazine Hcl 25 Mg Tablet BY MOUTH 25 mg Q6H PRN Administration NAUSEA/VOMITING Radiology Results: ITS Impressions Chest/Abdomen/Pelvis CT 08/31/24 13:07 IMPRESSION: 1. Findings compatible with small bowel obstruction, as detailed above. 2. Pneumoperitoneum. This can be related to G-tube placement if the procedure was performed recently. Correlate clinically and with physical examination to rule out pneumoperitoneum secondary to perforated viscus. 3. Findings concerning for pneumonia, as detailed above. Labs Labs: Laboratory Results - last 24 hr 08/31/24 08/31/24 08/31/24 05:53 17:58 23:41 WBC RBC Hgb Hct MCV MCH MCHC RDW Plt Count MPV Immature Gran % (Auto) Neut % (Auto) Lymph % (Auto) [place] % (Auto) Eos % (Auto) Baso % (Auto) Lymph # (Auto) [place] # (Auto) Eos # (Auto) Baso # (Auto) Abs Immat Gran (auto) Absolute Neuts (auto) Absolute Nucleated RBC Nucleated RBC % Sodium Potassium Chloride Carbon Dioxide Anion Gap BUN Creatinine Estim Creat Clear Calc Estimated GFR Glucose POC Capillary Glucose 108 H 109 H Calcium Phosphorus Magnesium Total Bilirubin AST ALT Alkaline Phosphatase Total Protein Albumin Triglycerides 48 09/01/24 09/01/24 09/01/24 05:34 05:58 07:54 WBC 7.0 RBC 3.33 L Hgb 10.0 L Hct 30.1 L MCV 90.4 MCH 30.0 MCHC 33.2 RDW 17.3 H Plt Count 160 MPV 9.1 Immature Gran % (Auto) 0.4 Neut % (Auto) 82.1 H Lymph % (Auto) 11.9 L [place] % (Auto) 5.0 Eos % (Auto) 0.6 Baso % (Auto) 0.0 L Lymph # (Auto) 0.83 L [place] # (Auto) 0.4 Eos # (Auto) 0.0 Baso # (Auto) 0.0 Abs Immat Gran (auto) 0.03 Absolute Neuts (auto) 5.7 Absolute Nucleated RBC 0.000 Nucleated RBC % 0.0 Sodium 129 L Potassium 4.1 Chloride 100 Carbon Dioxide 23 Anion Gap 6 BUN 18 Creatinine 0.46 L Estim Creat Clear Calc 86 Estimated GFR > 60 Glucose 102 POC Capillary Glucose 115 H 111 H Calcium 7.8 L Phosphorus 3.4 Magnesium 2.0 Total Bilirubin 0.4 AST 21 ALT 16 Alkaline Phosphatase 86 Total Protein 4.4 L Albumin 2.0 L Triglycerides 09/01/24 11:48 WBC RBC Hgb Hct MCV MCH MCHC RDW Plt Count MPV Immature Gran % (Auto) Neut % (Auto) Lymph % (Auto) [place] % (Auto) Eos % (Auto) Baso % (Auto) Lymph # (Auto) [place] # (Auto) Eos # (Auto) Baso # (Auto) Abs Immat Gran (auto) Absolute Neuts (auto) Absolute Nucleated RBC Nucleated RBC % Sodium Potassium Chloride Carbon Dioxide Anion Gap BUN Creatinine Estim Creat Clear Calc Estimated GFR Glucose POC Capillary Glucose 88 Calcium Phosphorus Magnesium Total Bilirubin AST ALT Alkaline Phosphatase Total Protein Albumin Triglycerides Quality VTE Prophylaxis VTE prophylaxis: mechanical ordered and pharmacologic ordered
[2024-09-01 14:00] VITALS: BP 117/70; PULSE 104; RESP 18; TEMP 36.7; O2SAT 97
[2024-09-01 15:26] LABS: Triglycerides 148 mg/dL (<150)
[2024-09-01] MEDS: FAT EMULSIONS IV 20% 250 ML 20.83 ML IVPB (15:45)
[2024-09-01] MEDS: PANTOPRAZOLE SODIUM IV 40 MG VIAL IV PUSH (20:37)
[2024-09-01 22:00] VITALS: BP 114/71; PULSE 101; RESP 32; TEMP 37.2; O2SAT 92
[2024-09-02] MEDS: AMINO ACIDS 4.25%/D5W/LYTES/CA 1,000 ML 80 ML IV CONT ×2 (04:30→16:56)
[2024-09-02 05:53] VITALS: BP 113/75; PULSE 96; RESP 20; TEMP 36.8; O2SAT 94
[2024-09-02 06:41] LABS: Hematocrit 30.4 % (42.0-52.0); Hemoglobin 9.9 g/dL (14.0-18.0); Immature Granulocyte Percent A 0.7 % (0-0.5); Lymphocytes Absolute Auto 0.94 K/mm3 (0.9-3.2); Mean Corpuscular HGB Conc 32.6 g/dl (32-36); Mean Corpuscular Hemoglobin 29.9 pg (26-34); Mean Corpuscular Volume 91.8 fl (80-100); Nucleated Red Blood Cells Absolute Auto 0.000 K/mm3 (0.0-0.012); Nucleated Red Blood Cells Perc 0.0 % (0.0-0.2); Platelet Count Result 171 k/mm3 (150-375); Red Blood Count 3.31 M/mm3 (4.6-6.20); White Blood Count 7.0 K/mm3 (4.5-10.0)
[2024-09-02 07:00] LABS: Alanine Aminotransferase 18 U/L (6-50); Albumin Level 2.1 g/dL (3.5-5.1); Alkaline Phosphatase 80 U/L (38-126); Anion Gap 5 mmol/L (4-12); Aspartate Amino Transferase 26 U/L (17-59); Bilirubin,Total 0.4 mg/dL (0.2-1.3); Blood Urea Nitrogen 18 mg/dL (9-20); Calcium 8.0 mg/dL (8.4-10.2); Carbon Dioxide 23 mmol/L (22-30); Chloride 101 mmol/L (98-107); Estimated CRCL calculation 93 ml/min; Estimated Glomerular Filt Rate > 60; Glucose 104 mg/dL (65-110); Potassium 4.2 mmol/L (3.4-5.0); Sodium 129 mmol/L (137-145); Total Protein 4.5 g/dL (6.3-8.2)
[2024-09-02 07:16] LABS: Magnesium 2.1 mg/dL (1.6-2.3)
[2024-09-02 08:00] VITALS: PULSE 96; RESP 20; O2SAT 94
[2024-09-02] MEDS: PANTOPRAZOLE SODIUM IV 40 MG VIAL IV PUSH ×2 (10:13→19:56)
[2024-09-02] MEDS: ENOXAPARIN 40 MG/0.4 ML SYRINGE SUB-Q (10:13)
--- NOTE | 2024-09-02 13:21 | P.PNIM_ITS ---
Progress Note: A&P Assessment and Plan (1) Status post insertion of percutaneous endoscopic gastrostomy (PEG) tube: Code(s): Z93.1 - Gastrostomy status Status: Acute Assessment and Plan: On 08/25/2024 by GI G-tube placed for severe malnutrition. not tolereatign tube feeds Tube feeding (2) Hypokalemia: Code(s): E87.6 - Hypokalemia Status: Acute Assessment and Plan: resolved (3) Hyponatremia: Code(s): E87.1 - Hypo-osmolality and hyponatremia Status: Acute Assessment and Plan: NA 129 IVF and monitor (4) Hypocalcemia: Code(s): E83.51 - Hypocalcemia Status: Acute Assessment and Plan: tums (5) Hypotension: Code(s): I95.9 - Hypotension, unspecified Status: Acute Assessment and Plan: Likely due to dehydration and electrolyte imbalance Replete calcium stable (6) Protein-calorie malnutrition, severe: Code(s): E43 - Unspecified severe protein-calorie malnutrition Status: Acute Assessment and Plan: NPO until SBO resolves Continue Megasetrol Continue home Reglan and Carafate PT and OT (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: Code(s): Z79.01 - extermination supervisor (current) use of anticoagulants Status: Acute Assessment and Plan: History of DVT and PE Does not appear to be on current anticoagulation (8) Adenocarcinoma of cecum: Onset Date: ~01/2023 Code(s): C18.0 - Malignant neoplasm of cecum Status: Chronic Assessment and Plan: Ct on 07/31/24 Findings within the chest, abdomen and pelvis which demonstrate a positive response to treatment See plan above (9) Nausea and vomiting in adult: Code(s): R11.2 - Nausea with vomiting, unspecified Status: Acute Assessment and Plan: possible cyclic vomiting Synd improving UDS positive for Marijuana resolved on Reglan GI on board SBO CT AP showed SBO NPO, continue PPN Gen surgery following Hypoglycemia, resolved on PPN CT AP ordered to rule out obstruction monitor DVT prophylaxis on Sq Lovenox Subjective Date/time seen: 09/02/24 13:21 Interval history: comfortable at bedside Imaging this morning showed still obstructed Review of Systems Review of Systems: 12 systems were reviewed and are negativ e except for as per HPI. Exam Narrative: General: Chronically ill, no acute distress, cachectic HEENT: normocephalic, atraumatic. Mucous membranes moist. EOMI, PERRLA, bilateral sclera anicteric, no conjunctival injection. Neck supple without JVD, lymphadenopathy, or bruit. Respiratory: clear to ascultation bilaterally. No rales/rhonic/wheezes. Cardiovascular: Regular rate and rhythm, normal S1-S2 upon ascultation. No murmurs, rubs, or clicks. PMI is nondisplaced, capillary refill less than 3 second. Abdomen: Soft, round, no pulsatile masses, nondistended and nontender. No rebound, no guarding. No CVA tenderness, no hepatosplenomegaly. Bowel sounds present to all four quadrants. No high pitch or tinkling sounds, resonant to percussion. G-tube in place Extremities: No cyanosis, clubbing, or edema present. Pulses are palpable 2/2. Active ROM to all four extremities. Neuro: Alert and orientated x 4. PERRLA. Cranial nerves 2-12 intact without focal deficit. Skin: Warm, dry, and intact, without rash, erythema, or lesion. Psych: pleasant, cooperative, normal speech, normal affect, no hallucinations, no dysarthia Objective Data Vital Signs Vital Signs: Vital Signs - 24 hr 09/01/24 14:00 09/01/24 20:00 09/01/24 22:00 Temperature 98.0 F 98.9 F Pulse Rate 104 H 101 H Respiratory Rate 18 32 H Blood Pressure 117/70 114/71 Pulse Oximetry 97 92 Oxygen Delivery Room Air 09/02/24 05:53 09/02/24 08:00 Temperature 98.2 F Pulse Rate 96 96 Respiratory Rate 20 20 Blood Pressure 113/75 Pulse Oximetry 94 94 Oxygen Delivery Room Air Intake/Output Intake/Output: Intake & Output 08/30/24 08/31/24 09/01/24 09/02/24 23:59 23:59 23:59 23:59 Intake Total 236 2700.7 2550 1000 Output Total 550 900 800 800 Balance -314 1800.7 1750 200 Meds/Results Medications: Active Medications Generic Name Dose Route Start Last Admin Trade Name Freq PRN Reason Stop Dose Admin Acetaminophen 650 mg 08/25/24 14:38 Acetaminophen 325 Mg Tablet PO Q4H PRN Mild Pain (1-3) or Fever Hydrocodone Bitart/Acetaminophen 1 tab 08/25/24 14:38 08/30/24 17:47 Hydrocodone/Acetaminophen (*Crx) 5-325 Mg Tablet PO 1 tab Q4H PRN Administration Moderate Pain (4-6) Calcium Carbonate 200 mg 08/28/24 17:00 09/02/24 10:08 Calcium Carbonate (Tums) 500 Mg (200 Mg Elemental) FEED TUBE Not Given BID KULDIP Dextrose 12.5 gm 08/30/24 07:17 08/30/24 07:45 Dextrose 50% 25 Gm/50 Ml Syringe IV PUSH 12.5 gm PRN PRN Administration Hypoglycemia Protocol Docusate Sodium 100 mg 08/25/24 17:00 09/02/24 10:08 Docusate Sodium 100 Mg Capsule PO Not Given BID KULDIP Enoxaparin Sodium 40 mg 08/28/24 09:00 09/02/24 10:13 Enoxaparin 40 Mg/0.4 Ml Syringe SUB-Q 40 mg QAM KULDIP Administration Glucagon 1 mg 08/30/24 07:17 Glucagon For Inj 1 Mg Vial IM PRN PRN Hypoglycemia Protocol Glucose 15 gm 08/30/24 07:17 Glucose Oral Gel 15 Gm Of Glucse In 37.5 Gm Tube PO PRN PRN Hypoglycemia Protocol Dextrose 1,000 mls @ 100 mls/hr 08/30/24 07:17 Dextrose 5% 1,000 Ml IVPB PRN PRN Hypoglycemia Protocol Dextrose 1,000 mls @ 50 mls/hr 08/30/24 14:11 Dextrose 10% IV CONT .Q20H PRN if PN is interrupted Fat Emulsion Intravenous 250 mls @ 20.833 mls/hr 08/30/24 15:00 09/01/24 15:45 Lipids 20% IVPB 20.83 mls/hr Q24H KULDIP Administration Amino Acids/Electrolytes/Dextrose 1,000 mls @ 80 mls/hr 08/30/24 15:00 09/02/24 04:30 Clinimix E 4.25%/5% Solution IV CONT 80 mls/hr .[id number] [facility] Administration Protocol Insulin Human Regular 2 - 5 units 08/30/24 18:00 09/02/24 12:33 Insulin Human Regular (*Bkc) 100 Units/Ml SUB-Q Not Given Q6HR [facility] Protocol Megestrol Acetate 400 mg 08/25/24 17:00 09/02/24 10:09 Megestrol Acetate (*Chemo) Oral Susp 40 Mg/Ml Syr PO Not Given BID [facility] Morphine Sulfate 2 mg 08/25/24 14:38 Morphine Sulfate (*Crx) 2 Mg/Ml Inj IV PUSH Q4H PRN Pain Rated 7-10 Ondansetron HCl 4 mg 08/31/24 12:25 Ondansetron Inj 4 Mg/2 Ml Vial IV PUSH Q4H PRN Nausea And Vomiting Pantoprazole Sodium 40 mg 09/01/24 21:00 09/02/24 10:13 Pantoprazole Sodium Iv 40 Mg Vial IV PUSH 40 mg Q12HR [facility] Administration Potassium Chloride 40 meq 08/27/24 09:00 09/02/24 10:09 Potassium Chloride 20 Meq Packet (For Liquid) FEED TUBE Not Given DAILY [facility] Radiology Results: ITS Impressions Chest/Abdomen/Pelvis CT 08/31/24 13:07 IMPRESSION: 1. Findings compatible with small bowel obstruction, as detailed above. 2. Pneumoperitoneum. This can be related to G-tube placement if the procedure was performed recently. Correlate clinically and with physical examination to rule out pneumoperitoneum secondary to perforated viscus. 3. Findings concerning for pneumonia, as detailed above. Abdomen X-Ray 09/02/24 08:13 IMPRESSION: As above Labs Labs: Laboratory Results - last 24 hr 09/01/24 09/01/24 09/01/24 15:04 16:39 20:25 WBC RBC Hgb Hct MCV MCH MCHC RDW Plt Count MPV Immature Gran % (Auto) Neut % (Auto) Lymph % (Auto) [place] % (Auto) Eos % (Auto) Baso % (Auto) Lymph # (Auto) [place] # (Auto) Eos # (Auto) Baso # (Auto) Abs Immat Gran (auto) Absolute Neuts (auto) Absolute Nucleated RBC Nucleated RBC % Sodium Potassium Chloride Carbon Dioxide Anion Gap BUN Creatinine Estim Creat Clear Calc Estimated GFR Glucose POC Capillary Glucose 96 100 Calcium Magnesium Total Bilirubin AST ALT Alkaline Phosphatase Total Protein Albumin Triglycerides 148 09/01/24 09/02/24 09/02/24 23:11 00:12 05:19 WBC RBC Hgb Hct MCV MCH MCHC RDW Plt Count MPV Immature Gran % (Auto) Neut % (Auto) Lymph % (Auto) [place] % (Auto) Eos % (Auto) Baso % (Auto) Lymph # (Auto) [place] # (Auto) Eos # (Auto) Baso # (Auto) Abs Immat Gran (auto) Absolute Neuts (auto) Absolute Nucleated RBC Nucleated RBC % Sodium Potassium Chloride Carbon Dioxide Anion Gap BUN Creatinine Estim Creat Clear Calc Estimated GFR Glucose POC Capillary Glucose 91 107 H 105 Calcium Magnesium Total Bilirubin AST ALT Alkaline Phosphatase Total Protein Albumin Triglycerides 09/02/24 09/02/24 06:05 12:06 WBC 7.0 RBC 3.31 L Hgb 9.9 L Hct 30.4 L MCV 91.8 MCH 29.9 MCHC 32.6 RDW 17.4 H Plt Count 171 MPV 9.3 Immature Gran % (Auto) 0.7 H Neut % (Auto) 79.8 H Lymph % (Auto) 13.4 L [place] % (Auto) 5.4 Eos % (Auto) 0.7 Baso % (Auto) 0.0 L Lymph # (Auto) 0.94 [place] # (Auto) 0.4 Eos # (Auto) 0.1 Baso # (Auto) 0.0 Abs Immat Gran (auto) 0.05 H Absolute Neuts (auto) 5.6 Absolute Nucleated RBC 0.000 Nucleated RBC % 0.0 Sodium 129 L Potassium 4.2 Chloride 101 Carbon Dioxide 23 Anion Gap 5 BUN 18 Creatinine 0.44 L Estim Creat Clear Calc 93 Estimated GFR > 60 Glucose 104 POC Capillary Glucose 107 H Calcium 8.0 L Magnesium 2.1 Total Bilirubin 0.4 AST 26 ALT 18 Alkaline Phosphatase 80 Total Protein 4.5 L Albumin 2.1 L Triglycerides Quality VTE Prophylaxis VTE prophylaxis: mechanical ordered and pharmacologic ordered
--- NOTE | 2024-09-02 13:32 | PM.PNGS ---
Progress Note: A&P Assessment and Plan (1) Small bowel obstruction: Code(s): K56.609 - Unspecified intestinal obstruction, unspecified as to partial versus complete obstruction Status: Acute Assessment and Plan: continue NG decompression today, will allow ice chips will plan for Gastrografin small-bowel follow-through tomorrow (2) Protein-calorie malnutrition, severe: Code(s): E43 - Unspecified severe protein-calorie malnutrition Status: Acute Assessment and Plan: continue PPN (3) Status post insertion of percutaneous endoscopic gastrostomy (PEG) tube: Code(s): Z93.1 - Gastrostomy status Status: Acute Subjective Subjective Date/Time Seen: 09/02/24 13:32 Interval history: Patient had a large BM overnight. He states he felt much better after NG tube was placed. He no longer is having nausea or vomiting. He denies any significant abdominal pain. Exam GI: GI Palp: Yes Soft to palpation, No Tenderness to palpation present (GI), No Guarding due to palpation present (GI) and No Rebound tenderness present Percussion: Yes normal to percussion Auscultation: normal bowel sounds Other: Minimally distended Objective Data Vital Signs Vital Signs: Vital Signs - 24 hr 09/01/24 14:00 09/01/24 20:00 09/01/24 22:00 Temperature 98.0 F 98.9 F Pulse Rate 104 H 101 H Respiratory Rate 18 32 H Blood Pressure 117/70 114/71 Pulse Oximetry 97 92 Oxygen Delivery Room Air 09/02/24 05:53 09/02/24 08:00 Temperature 98.2 F Pulse Rate 96 96 Respiratory Rate 20 20 Blood Pressure 113/75 Pulse Oximetry 94 94 Oxygen Delivery Room Air Intake/Output Intake/Output: Intake & Output 08/30/24 08/31/24 09/01/24 09/02/24 23:59 23:59 23:59 23:59 Intake Total 236 2700.7 2550 1000 Output Total 550 900 800 800 Balance -314 1800.7 1750 200 Meds/Results Medications: Active Medications Generic Name Dose Route Start Last Admin Trade Name Freq PRN Reason Stop Dose Admin Acetaminophen 650 mg 08/25/24 14:38 Acetaminophen 325 Mg Tablet PO Q4H PRN Mild Pain (1-3) or Fever Hydrocodone Bitart/Acetaminophen 1 tab 08/25/24 14:38 08/30/24 17:47 Hydrocodone/Acetaminophen (*Crx) 5-325 Mg Tablet PO 1 tab Q4H PRN Administration Moderate Pain (4-6) Calcium Carbonate 200 mg 08/28/24 17:00 09/02/24 10:08 Calcium Carbonate (Tums) 500 Mg (200 Mg Elemental) FEED TUBE Not Given BID KULDIP Dextrose 12.5 gm 08/30/24 07:17 08/30/24 07:45 Dextrose 50% 25 Gm/50 Ml Syringe IV PUSH 12.5 gm PRN PRN Administration Hypoglycemia Protocol Docusate Sodium 100 mg 08/25/24 17:00 09/02/24 10:08 Docusate Sodium 100 Mg Capsule PO Not Given BID KULDIP Enoxaparin Sodium 40 mg 08/28/24 09:00 09/02/24 10:13 Enoxaparin 40 Mg/0.4 Ml Syringe SUB-Q 40 mg QAM KULDIP Administration Glucagon 1 mg 08/30/24 07:17 Glucagon For Inj 1 Mg Vial IM PRN PRN Hypoglycemia Protocol Glucose 15 gm 08/30/24 07:17 Glucose Oral Gel 15 Gm Of Glucse In 37.5 Gm Tube PO PRN PRN Hypoglycemia Protocol Dextrose 1,000 mls @ 100 mls/hr 08/30/24 07:17 Dextrose 5% 1,000 Ml IVPB PRN PRN Hypoglycemia Protocol Dextrose 1,000 mls @ 50 mls/hr 08/30/24 14:11 Dextrose 10% IV CONT .Q20H PRN if PN is interrupted Fat Emulsion Intravenous 250 mls @ 20.833 mls/hr 08/30/24 15:00 09/01/24 15:45 Lipids 20% IVPB 20.83 mls/hr Q24H K[facility]IP Administration Amino Acids/Electrolytes/Dextrose 1,000 mls @ 80 mls/hr 08/30/24 15:00 09/02/24 04:30 Clinimix E 4.25%/5% Solution IV CONT 80 mls/hr .[id number] [facility] Administration Protocol Insulin Human Regular 2 - 5 units 08/30/24 18:00 09/02/24 12:33 Insulin Human Regular (*Bkc) 100 Units/Ml SUB-Q Not Given Q6HR [facility] Protocol Megestrol Acetate 400 mg 08/25/24 17:00 09/02/24 10:09 Megestrol Acetate (*Chemo) Oral Susp 40 Mg/Ml Syr PO Not Given BID KULDIP Morphine Sulfate 2 mg 08/25/24 14:38 Morphine Sulfate (*Crx) 2 Mg/Ml Inj IV PUSH Q4H PRN Pain Rated 7-10 Ondansetron HCl 4 mg 08/31/24 12:25 Ondansetron Inj 4 Mg/2 Ml Vial IV PUSH Q4H PRN Nausea And Vomiting Pantoprazole Sodium 40 mg 09/01/24 21:00 09/02/24 10:13 Pantoprazole Sodium Iv 40 Mg Vial IV PUSH 40 mg Q12HR [facility] Administration Potassium Chloride 40 meq 08/27/24 09:00 09/02/24 10:09 Potassium Chloride 20 Meq Packet (For Liquid) FEED TUBE Not Given DAILY [facility] Radiology Results: ITS Impressions Chest/Abdomen/Pelvis CT 08/31/24 13:07 IMPRESSION: 1. Findings compatible with small bowel obstruction, as detailed above. 2. Pneumoperitoneum. This can be related to G-tube placement if the procedure was performed recently. Correlate clinically and with physical examination to rule out pneumoperitoneum secondary to perforated viscus. 3. Findings concerning for pneumonia, as detailed above. Abdomen X-Ray 09/02/24 08:13 IMPRESSION: As above Labs Labs: Laboratory Results - last 24 hr 09/01/24 09/01/24 09/01/24 15:04 16:39 20:25 WBC RBC Hgb Hct MCV MCH MCHC RDW Plt Count MPV Immature Gran % (Auto) Neut % (Auto) Lymph % (Auto) [place] % (Auto) Eos % (Auto) Baso % (Auto) Lymph # (Auto) [place] # (Auto) Eos # (Auto) Baso # (Auto) Abs Immat Gran (auto) Absolute Neuts (auto) Absolute Nucleated RBC Nucleated RBC % Sodium Potassium Chloride Carbon Dioxide Anion Gap BUN Creatinine Estim Creat Clear Calc Estimated GFR Glucose POC Capillary Glucose 96 100 Calcium Magnesium Total Bilirubin AST ALT Alkaline Phosphatase Total Protein Albumin Triglycerides 148 09/01/24 09/02/24 09/02/24 23:11 00:12 05:19 WBC RBC Hgb Hct MCV MCH MCHC RDW Plt Count MPV Immature Gran % (Auto) Neut % (Auto) Lymph % (Auto) [place] % (Auto) Eos % (Auto) Baso % (Auto) Lymph # (Auto) [place] # (Auto) Eos # (Auto) Baso # (Auto) Abs Immat Gran (auto) Absolute Neuts (auto) Absolute Nucleated RBC Nucleated RBC % Sodium Potassium Chloride Carbon Dioxide Anion Gap BUN Creatinine Estim Creat Clear Calc Estimated GFR Glucose POC Capillary Glucose 91 107 H 105 Calcium Magnesium Total Bilirubin AST ALT Alkaline Phosphatase Total Protein Albumin Triglycerides 09/02/24 09/02/24 06:05 12:06 WBC 7.0 RBC 3.31 L Hgb 9.9 L Hct 30.4 L MCV 91.8 MCH 29.9 MCHC 32.6 RDW 17.4 H Plt Count 171 MPV 9.3 Immature Gran % (Auto) 0.7 H Neut % (Auto) 79.8 H Lymph % (Auto) 13.4 L [place] % (Auto) 5.4 Eos % (Auto) 0.7 Baso % (Auto) 0.0 L Lymph # (Auto) 0.94 [place] # (Auto) 0.4 Eos # (Auto) 0.1 Baso # (Auto) 0.0 Abs Immat Gran (auto) 0.05 H Absolute Neuts (auto) 5.6 Absolute Nucleated RBC 0.000 Nucleated RBC % 0.0 Sodium 129 L Potassium 4.2 Chloride 101 Carbon Dioxide 23 Anion Gap 5 BUN 18 Creatinine 0.44 L Estim Creat Clear Calc 93 Estimated GFR > 60 Glucose 104 POC Capillary Glucose 107 H Calcium 8.0 L Magnesium 2.1 Total Bilirubin 0.4 AST 26 ALT 18 Alkaline Phosphatase 80 Total Protein 4.5 L Albumin 2.1 L Triglycerides
[2024-09-02 14:00] VITALS: BP 106/66; PULSE 99; RESP 18; TEMP 36.3; O2SAT 97
[2024-09-02 15:18] LABS: Triglycerides 96 mg/dL (<150)
[2024-09-02] MEDS: FAT EMULSIONS IV 20% 250 ML 20.83 ML IVPB (16:01)
[2024-09-02] MEDS: ONDANSETRON INJ 4 MG/2 ML VIAL IV PUSH (19:56)
[2024-09-02 22:00] VITALS: BP 118/79; PULSE 105; RESP 16; TEMP 37.2; O2SAT 97
[2024-09-03] MEDS: AMINO ACIDS 4.25%/D5W/LYTES/CA 1,000 ML 80 ML IV CONT ×2 (05:49→16:35)
[2024-09-03 05:53] VITALS: BP 107/72; PULSE 102; RESP 16; TEMP 36.9; O2SAT 95
[2024-09-03 06:14] LABS: Hematocrit 30.2 % (42.0-52.0); Hemoglobin 10.0 g/dL (14.0-18.0); Immature Granulocyte Percent A 0.4 % (0-0.5); Lymphocytes Absolute Auto 0.86 K/mm3 (0.9-3.2); Mean Corpuscular HGB Conc 33.1 g/dl (32-36); Mean Corpuscular Hemoglobin 30.6 pg (26-34); Mean Corpuscular Volume 92.4 fl (80-100); Nucleated Red Blood Cells Absolute Auto 0.000 K/mm3 (0.0-0.012); Nucleated Red Blood Cells Perc 0.0 % (0.0-0.2); Platelet Count Result 186 k/mm3 (150-375); Red Blood Count 3.27 M/mm3 (4.6-6.20); White Blood Count 7.4 K/mm3 (4.5-10.0)
[2024-09-03 06:43] LABS: Alanine Aminotransferase 23 U/L (6-50); Albumin Level 2.1 g/dL (3.5-5.1); Alkaline Phosphatase 76 U/L (38-126); Anion Gap 3 mmol/L (4-12); Aspartate Amino Transferase 31 U/L (17-59); Bilirubin,Total 0.6 mg/dL (0.2-1.3); Blood Urea Nitrogen 21 mg/dL (9-20); Calcium 7.8 mg/dL (8.4-10.2); Carbon Dioxide 24 mmol/L (22-30); Chloride 101 mmol/L (98-107); Estimated CRCL calculation 95 ml/min; Estimated Glomerular Filt Rate > 60; Glucose 97 mg/dL (65-110); Magnesium 2.2 mg/dL (1.6-2.3); Potassium 4.1 mmol/L (3.4-5.0); Sodium 128 mmol/L (137-145); Total Protein 4.5 g/dL (6.3-8.2)
[2024-09-03] MEDS: PANTOPRAZOLE SODIUM IV 40 MG VIAL IV PUSH ×2 (09:24→20:50)
[2024-09-03] MEDS: ENOXAPARIN 40 MG/0.4 ML SYRINGE SUB-Q (09:24)
[2024-09-03] MEDS: ONDANSETRON INJ 4 MG/2 ML VIAL IV PUSH (09:26)
--- NOTE | 2024-09-03 10:05 | PCOTNOTE ---
Per RN, pt is currently sick at this time and vomiting. Will attempt at a later time when appropriate.
--- NOTE | 2024-09-03 11:51 | PCOTNOTE ---
2nd attempt was made to see pt for OT treatment. Pt currently is refusing to participate due to stating that he is going to leaving for imaging tests for a very long time and does not want to do anything right now. Pt also states that he is still sick despite nursing providing him medication. Pt is educated on the importance of participation for strengthening and overall independence. Will continue per poc duration/frequency tomorrow.
--- NOTE | 2024-09-03 12:44 | P.PNIM_ITS ---
Progress Note: A&P Assessment and Plan (1) Status post insertion of percutaneous endoscopic gastrostomy (PEG) tube: Code(s): Z93.1 - Gastrostomy status Status: Acute Assessment and Plan: On 08/25/2024 by GI G-tube placed for severe malnutrition. not tolereatign tube feeds Tube feeding (2) Hypokalemia: Code(s): E87.6 - Hypokalemia Status: Acute Assessment and Plan: resolved (3) Hyponatremia: Code(s): E87.1 - Hypo-osmolality and hyponatremia Status: Acute Assessment and Plan: NA 129 IVF and monitor (4) Hypocalcemia: Code(s): E83.51 - Hypocalcemia Status: Acute Assessment and Plan: tums (5) Hypotension: Code(s): I95.9 - Hypotension, unspecified Status: Acute Assessment and Plan: Likely due to dehydration and electrolyte imbalance Replete calcium stable (6) Protein-calorie malnutrition, severe: Code(s): E43 - Unspecified severe protein-calorie malnutrition Status: Acute Assessment and Plan: NPO until SBO resolves Continue Megasetrol Continue home Reglan and Carafate PT and OT (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: Code(s): Z79.01 - terminal computer operator (current) use of anticoagulants Status: Acute Assessment and Plan: History of DVT and PE Does not appear to be on current anticoagulation (8) Adenocarcinoma of cecum: Onset Date: ~01/2023 Code(s): C18.0 - Malignant neoplasm of cecum Status: Chronic Assessment and Plan: Ct on 07/31/24 Findings within the chest, abdomen and pelvis which demonstrate a positive response to treatment See plan above (9) Nausea and vomiting in adult: Code(s): R11.2 - Nausea with vomiting, unspecified Status: Acute Assessment and Plan: possible cyclic vomiting Synd improving UDS positive for Marijuana resolved on Reglan GI on board SBO CT AP showed SBO NPO, NG tube with intermittent suction , continue PPN Gastrografin small bowel through today Gen surgery following Hypoglycemia, resolved on PPN CT AP ordered to rule out obstruction monitor DVT prophylaxis on Sq Lovenox Subjective Date/time seen: 09/03/24 12:44 Interval history: comfortable at bedside Noted two episodes of vomiting today Gastrografin small bowel follow through pendign Review of Systems Review of Systems: 12 systems were reviewed and are negativ e except for as per HPI. Exam Narrative: General: Chronically ill, no acute distress, cachectic HEENT: normocephalic, atraumatic. Mucous membranes moist. EOMI, PERRLA, bilateral sclera anicteric, no conjunctival injection. Neck supple without JVD, lymphadenopathy, or bruit. Respiratory: clear to ascultation bilaterally. No rales/rhonic/wheezes. Cardiovascular: Regular rate and rhythm, normal S1-S2 upon ascultation. No murmurs, rubs, or clicks. PMI is nondisplaced, capillary refill less than 3 second. Abdomen: Soft, round, no pulsatile masses, nondistended and nontender. No rebound, no guarding. No CVA tenderness, no hepatosplenomegaly. Bowel sounds present to all four quadrants. No high pitch or tinkling sounds, resonant to percussion. G-tube in place Extremities: No cyanosis, clubbing, or edema present. Pulses are palpable 2/2. Active ROM to all four extremities. Neuro: Alert and orientated x 4. PERRLA. Cranial nerves 2-12 intact without focal deficit. Skin: Warm, dry, and intact, without rash, erythema, or lesion. Psych: pleasant, cooperative, normal speech, normal affect, no hallucinations, no dysarthia Objective Data Vital Signs Vital Signs: Vital Signs - 24 hr 09/02/24 14:00 09/02/24 20:00 09/02/24 22:00 Temperature 97.4 F L 98.9 F Pulse Rate 99 105 H Respiratory Rate 18 16 Blood Pressure 106/66 118/79 Pulse Oximetry 97 97 Oxygen Delivery Room Air 09/03/24 05:53 Temperature 98.4 F Pulse Rate 102 H Respiratory Rate 16 Blood Pressure 107/72 Pulse Oximetry 95 Oxygen Delivery Intake/Output Intake/Output: Intake & Output 08/31/24 09/01/24 09/02/24 09/03/24 23:59 23:59 23:59 23:59 Intake Total 2700.7 2550 2724.7 1480 Output Total 900 819 881 7753 Balance 1800.7 1750 1924.7 110 Meds/Results Medications: Active Medications Generic Name Dose Route Start Last Admin Trade Name Freq PRN Reason Stop Dose Admin Acetaminophen 650 mg 08/25/24 14:38 Acetaminophen 325 Mg Tablet PO Q4H PRN Mild Pain (1-3) or Fever Hydrocodone Bitart/Acetaminophen 1 tab 08/25/24 14:38 08/30/24 17:47 Hydrocodone/Acetaminophen (*Crx) 5-325 Mg Tablet PO 1 tab Q4H PRN Administration Moderate Pain (4-6) Calcium Carbonate 200 mg 08/28/24 17:00 09/03/24 12:33 Calcium Carbonate (Tums) 500 Mg (200 Mg Elemental) FEED TUBE Not Given BID KULDIP Dextrose 12.5 gm 08/30/24 07:17 08/30/24 07:45 Dextrose 50% 25 Gm/50 Ml Syringe IV PUSH 12.5 gm PRN PRN Administration Hypoglycemia Protocol Docusate Sodium 100 mg 08/25/24 17:00 09/03/24 12:33 Docusate Sodium 100 Mg Capsule PO Not Given BID KULDIP Enoxaparin Sodium 40 mg 08/28/24 09:00 09/03/24 09:24 Enoxaparin 40 Mg/0.4 Ml Syringe SUB-Q 40 mg QAM KULDIP Administration Glucagon 1 mg 08/30/24 07:17 Glucagon For Inj 1 Mg Vial IM PRN PRN Hypoglycemia Protocol Glucose 15 gm 08/30/24 07:17 Glucose Oral Gel 15 Gm Of Glucse In 37.5 Gm Tube PO PRN PRN Hypoglycemia Protocol Dextrose 1,000 mls @ 100 mls/hr 08/30/24 07:17 Dextrose 5% 1,000 Ml IVPB PRN PRN Hypoglycemia Protocol Dextrose 1,000 mls @ 50 mls/hr 08/30/24 14:11 Dextrose 10% IV CONT .Q20H PRN if PN is interrupted Fat Emulsion Intravenous 250 mls @ 20.833 mls/hr 08/30/24 15:00 09/02/24 16:01 Lipids 20% IVPB 20.83 mls/hr Q24H KUL[facility]IP Administration Amino Acids/Electrolytes/Dextrose 1,000 mls @ 80 mls/hr 08/30/24 15:00 09/03/24 05:49 Clinimix E 4.25%/5% Solution IV CONT 80 mls/hr .[id number] [facility] Administration Protocol Insulin Human Regular 2 - 5 units 08/30/24 18:00 09/03/24 12:33 Insulin Human Regular (*Bkc) 100 Units/Ml SUB-Q Not Given Q6HR [facility] Protocol Megestrol Acetate 400 mg 08/25/24 17:00 09/03/24 12:33 Megestrol Acetate (*Chemo) Oral Susp 40 Mg/Ml Syr PO Not Given BID [facility] Morphine Sulfate 2 mg 08/25/24 14:38 Morphine Sulfate (*Crx) 2 Mg/Ml Inj IV PUSH Q4H PRN Pain Rated 7-10 Ondansetron HCl 4 mg 08/31/24 12:25 09/03/24 09:26 Ondansetron Inj 4 Mg/2 Ml Vial IV PUSH 4 mg Q4H PRN Administration Nausea And Vomiting Pantoprazole Sodium 40 mg 09/01/24 21:00 09/03/24 09:24 Pantoprazole Sodium Iv 40 Mg Vial IV PUSH 40 mg Q12HR KUL[facility]IP Administration Potassium Chloride 40 meq 08/27/24 09:00 09/02/24 10:09 Potassium Chloride 20 Meq Packet (For Liquid) FEED TUBE Not Given DAILY [facility] Radiology Results: ITS Impressions Chest/Abdomen/Pelvis CT 08/31/24 13:07 IMPRESSION: 1. Findings compatible with small bowel obstruction, as detailed above. 2. Pneumoperitoneum. This can be related to G-tube placement if the procedure was performed recently. Correlate clinically and with physical examination to rule out pneumoperitoneum secondary to perforated viscus. 3. Findings concerning for pneumonia, as detailed above. Abdomen X-Ray 09/02/24 08:13 IMPRESSION: As above Labs Labs: Laboratory Results - last 24 hr 09/02/24 09/02/24 09/02/24 06:04 16:45 19:49 WBC RBC Hgb Hct MCV MCH MCHC RDW Plt Count MPV Immature Gran % (Auto) Neut % (Auto) Lymph % (Auto) [place] % (Auto) Eos % (Auto) Baso % (Auto) Lymph # (Auto) [place] # (Auto) Eos # (Auto) Baso # (Auto) Abs Immat Gran (auto) Absolute Neuts (auto) Absolute Nucleated RBC Nucleated RBC % Sodium Potassium Chloride Carbon Dioxide Anion Gap BUN Creatinine Estim Creat Clear Calc Estimated GFR Glucose POC Capillary Glucose 110 H 104 Calcium Phosphorus Magnesium Total Bilirubin AST ALT Alkaline Phosphatase Total Protein Albumin Triglycerides 96 09/02/24 09/03/24 09/03/24 22:59 05:47 05:58 WBC 7.4 RBC 3.27 L Hgb 10.0 L Hct 30.2 L MCV 92.4 MCH 30.6 MCHC 33.1 RDW 17.3 H Plt Count 186 MPV 9.1 Immature Gran % (Auto) 0.4 Neut % (Auto) 80.7 H Lymph % (Auto) 11.6 L [place] % (Auto) 6.7 Eos % (Auto) 0.5 Baso % (Auto) 0.1 L Lymph # (Auto) 0.86 L [place] # (Auto) 0.5 Eos # (Auto) 0.0 Baso # (Auto) 0.0 Abs Immat Gran (auto) 0.03 Absolute Neuts (auto) 6.0 Absolute Nucleated RBC 0.000 Nucleated RBC % 0.0 Sodium 128 L Potassium 4.1 Chloride 101 Carbon Dioxide 24 Anion Gap 3 L BUN 21 H Creatinine 0.44 L Estim Creat Clear Calc 95 Estimated GFR > 60 Glucose 97 POC Capillary Glucose 106 H 104 Calcium 7.8 L Phosphorus 3.1 Magnesium 2.2 Total Bilirubin 0.6 AST 31 ALT 23 Alkaline Phosphatase 76 Total Protein 4.5 L Albumin 2.1 L Triglycerides 09/03/24 11:32 WBC RBC Hgb Hct MCV MCH MCHC RDW Plt Count MPV Immature Gran % (Auto) Neut % (Auto) Lymph % (Auto) [place] % (Auto) Eos % (Auto) Baso % (Auto) Lymph # (Auto) [place] # (Auto) Eos # (Auto) Baso # (Auto) Abs Immat Gran (auto) Absolute Neuts (auto) Absolute Nucleated RBC Nucleated RBC % Sodium Potassium Chloride Carbon Dioxide Anion Gap BUN Creatinine Estim Creat Clear Calc Estimated GFR Glucose POC Capillary Glucose 103 Calcium Phosphorus Magnesium Total Bilirubin AST ALT Alkaline Phosphatase Total Protein Albumin Triglycerides Quality VTE Prophylaxis VTE prophylaxis: mechanical ordered and pharmacologic ordered
[2024-09-03 14:07] LABS: Triglycerides 97 mg/dL (<150)
[2024-09-03] MEDS: FAT EMULSIONS IV 20% 250 ML 20.83 ML IVPB (16:34)
--- NOTE | 2024-09-03 21:35 | ECG_ITS ---
Test Date: 2024-09-03 21:55:18 Measurements Intervals [place] Rate: 127 P: 249 [place]: 107 QRS: 28 QRSD: 81 T: 92 QT: 290 QTc: 423 Interpretive Statements SINUS TACHYCARDIA BASELINE ARTIFACT AFFECTS INTERPRETATION Compared to ECG 08/29/2024 00:54:20 NO SIGNIFICANT CHANGES Electronically Signed On 09-04-2024 12:38:51 CDT by Amandeep Joshi M.D.
[2024-09-03 21:50] VITALS: BP 105/70; PULSE 123; RESP 18; TEMP 36.4; O2SAT 96
[2024-09-03] MEDS: SODIUM CHLORIDE 0.9% IV 1,000 ML 999 ML IV CONT (22:54)
[2024-09-03 22:56] LABS: Magnesium 2.2 mg/dL (1.6-2.3)
[2024-09-04 06:00] VITALS: BP 100/70; PULSE 123; RESP 20; TEMP 36.6; O2SAT 90
[2024-09-04 06:07] LABS: Hematocrit 33.3 % (42.0-52.0); Hemoglobin 10.5 g/dL (14.0-18.0); Immature Granulocyte Percent A 0.0 % (0-0.5); Lymphocytes Absolute Auto 0.41 K/mm3 (0.9-3.2); Mean Corpuscular HGB Conc 31.5 g/dl (32-36); Mean Corpuscular Hemoglobin 29.9 pg (26-34); Mean Corpuscular Volume 94.9 fl (80-100); Nucleated Red Blood Cells Absolute Auto 0.000 K/mm3 (0.0-0.012); Nucleated Red Blood Cells Perc 0.0 % (0.0-0.2); Platelet Count Result 232 k/mm3 (150-375); Red Blood Count 3.51 M/mm3 (4.6-6.20); White Blood Count 3.5 K/mm3 (4.5-10.0)
[2024-09-04 06:22] LABS: INR 1.2; Prothrombin Time 14.8 Seconds (11.1-14.7)
[2024-09-04 06:23] LABS: Partial Thromboplastin Time 23.1 Seconds (22.3-36.8)
[2024-09-04 06:29] LABS: Alanine Aminotransferase 39 U/L (6-50); Albumin Level 2.4 g/dL (3.5-5.1); Alkaline Phosphatase 79 U/L (38-126); Anion Gap 7 mmol/L (4-12); Aspartate Amino Transferase 48 U/L (17-59); Bilirubin,Total 0.6 mg/dL (0.2-1.3); Blood Urea Nitrogen 41 mg/dL (9-20); Calcium 8.5 mg/dL (8.4-10.2); Carbon Dioxide 25 mmol/L (22-30); Chloride 101 mmol/L (98-107); Estimated CRCL calculation 65 ml/min; Estimated Glomerular Filt Rate > 60; Glucose 124 mg/dL (65-110); Magnesium 2.3 mg/dL (1.6-2.3); Potassium 4.2 mmol/L (3.4-5.0); Sodium 133 mmol/L (137-145); Total Protein 5.0 g/dL (6.3-8.2)
[2024-09-04 06:36] LABS: Transferrin 115 mg/dL (206-381)
[2024-09-04] MEDS: AMINO ACIDS 4.25%/D5W/LYTES/CA 1,000 ML 80 ML IV CONT ×2 (07:59→21:38)
[2024-09-04] MEDS: PANTOPRAZOLE SODIUM IV 40 MG VIAL IV PUSH ×2 (07:59→21:48)
[2024-09-04] MEDS: ONDANSETRON INJ 4 MG/2 ML VIAL IV PUSH (07:59)
[2024-09-04] MEDS: ENOXAPARIN 40 MG/0.4 ML SYRINGE SUB-Q (07:59)
--- NOTE | 2024-09-04 10:14 | P.PNGS_ITS ---
Progress Note: A&P Assessment and Plan (1) Small bowel obstruction: Code(s): K56.609 - Unspecified intestinal obstruction, unspecified as to partial versus complete obstruction Status: Acute Assessment and Plan: * continue NG decompression today, will allow ice chips. * Gastrografin small bowel series yesterday showed diffuse small bowel dilation with no contrast in the large bowel by the 4 hour federico. However, since this time patient has had multiple bowel movements. He experienced several episodes of emesis throughout the night into this morning. 2 L of output from NG overnight. NG tube was advanced this morning, and patient has had minimal NG output since this time. Stat KUB ordered to evaluate small bowel. Will follow up with results and discuss with surgeon conveyor loader for the possibility of surgery vs continued medical treatment. (2) Protein-calorie malnutrition, severe: Code(s): E43 - Unspecified severe protein-calorie malnutrition Status: Acute Assessment and Plan: * continue PPN * Albumin 2.4. Patient is a poor surgical candidate. (3) Status post insertion of percutaneous endoscopic gastrostomy (PEG) tube: Code(s): Z93.1 - Gastrostomy status Status: Acute Plan Discussed patient's case and plan of care with Dr. Marte. Subjective Subjective Date/Time Seen: 09/04/24 10:14 Patient reports: no new complaints Interval history: Patient states that he is feeling a little better today. However, he was very nauseous with several episodes of emesis overnight and this morning. Per nursing staff, NG had almost 2L of output overnight after the tube was manipulated. Small bowel series yesterday demonstrated marked diffuse small bowel dilation. Contrast proceeded through small bowel in an antegrade fashion, but did not herminio ch the large bowel by the 4 hour images. NG tube terminated at GE junction, therefore was advanced by nursing staff this morning. Since advance in the NG tube, there has been minimal output and nausea/vomiting has remitted. Patient has been tachycardic, with pulse rate now at 123 bpm. WBC is low at 3.5. Albumin 2.4. Exam Const: General: comfortable and no acute distress GI: Inspection: non-distended GI Palp: Yes Soft to palpation, No Tenderness to palpation present (GI) and No Guarding due to palpation present (GI) Auscultation: abnormal bowel sounds (hypoactive) Other: Patient severely cachectic. G-tube with some surrounding yellow drainage. Objective Data Vital Signs Vital Signs: Vital Signs - 24 hr 09/03/24 21:50 09/04/24 06:00 Temperature 97.5 F L 97.8 F Pulse Rate 123 H 123 H Respiratory Rate 18 20 Blood Pressure 105/70 100/70 Pulse Oximetry 96 90 Intake/Output Intake/Output: Intake & Output 09/01/24 09/02/24 09/03/24 09/04/24 23:59 23:59 23:59 23:59 Intake Total 2550 2724.7 3591.3 1250 Output Total 260 652 9248 2150 Balance 1750 1924.7 1921.3 -900 Meds/Results Medications: Active Medications Generic Name Dose Route Start Last Admin Trade Name Freq PRN Reason Stop Dose Admin Acetaminophen 650 mg 08/25/24 14:38 Acetaminophen 325 Mg Tablet PO Q4H PRN Mild Pain (1-3) or Fever Hydrocodone Bitart/Acetaminophen 1 tab 08/25/24 14:38 08/30/24 17:47 Hydrocodone/Acetaminophen (*Crx) 5-325 Mg Tablet PO 1 tab Q4H PRN Administration Moderate Pain (4-6) Calcium Carbonate 200 mg 08/28/24 17:00 09/03/24 17:46 Calcium Carbonate (Tums) 500 Mg (200 Mg Elemental) FEED TUBE Not Given BID KULDIP Dextrose 12.5 gm 08/30/24 07:17 08/30/24 07:45 Dextrose 50% 25 Gm/50 Ml Syringe IV PUSH 12.5 gm PRN PRN Administration Hypoglycemia Protocol Docusate Sodium 100 mg 08/25/24 17:00 09/03/24 17:46 Docusate Sodium 100 Mg Capsule PO Not Given BID KULDIP Enoxaparin Sodium 40 mg 08/28/24 09:00 09/04/24 07:59 Enoxaparin 40 Mg/0.4 Ml Syringe SUB-Q 40 mg QAM KULDIP Administration Glucagon 1 mg 08/30/24 07:17 Glucagon For Inj 1 Mg Vial IM PRN PRN Hypoglycemia Protocol Glucose 15 gm 08/30/24 07:17 Glucose Oral Gel 15 Gm Of Glucse In 37.5 Gm Tube PO PRN PRN Hypoglycemia Protocol Dextrose 1,000 mls @ 100 mls/hr 08/30/24 07:17 Dextrose 5% 1,000 Ml IVPB PRN PRN Hypoglycemia Protocol Dextrose 1,000 mls @ 50 mls/hr 08/30/24 14:11 Dextrose 10% IV CONT .Q20H PRN if PN is interrupted Fat Emulsion Intravenous 250 mls @ 20.833 mls/hr 08/30/24 15:00 09/04/24 05:49 Lipids 20% IVPB Infused Q24H KULDIP Infusion Amino Acids/Electrolytes/Dextrose 1,000 mls @ 80 mls/hr 08/30/24 15:00 09/04/24 07:59 Clinimix E 4.25%/5% Solution IV CONT 80 mls/hr .[id number] KULDIP Administration Protocol Insulin Human Regular 2 - 5 units 08/30/24 18:00 09/04/24 06:47 Insulin Human Regular (*Bkc) 100 Units/Ml SUB-Q Not Given Q6HR [facility] Protocol Megestrol Acetate 400 mg 08/25/24 17:00 09/03/24 17:46 Megestrol Acetate (*Chemo) Oral Susp 40 Mg/Ml Syr PO Not Given BID [facility] Miscellaneous Information 1 each 09/04/24 00:01 Please Renew [place] & Morphine. Per [employer] Procedure, It Will Discontinue If Not Renewed XX 10/04/24 00:00 CLARIFY [facility] Morphine Sulfate 2 mg 08/25/24 14:38 Morphine Sulfate (*Crx) 2 Mg/Ml Inj IV PUSH Q4H PRN Pain Rated 7-10 Ondansetron HCl 4 mg 08/31/24 12:25 09/04/24 07:59 Ondansetron Inj 4 Mg/2 Ml Vial IV PUSH 4 mg Q4H PRN Administration Nausea And Vomiting Pantoprazole Sodium 40 mg 09/01/24 21:00 09/04/24 07:59 Pantoprazole Sodium Iv 40 Mg Vial IV PUSH 40 mg Q12HR KULDIP Administration Potassium Chloride 40 meq 08/27/24 09:00 09/03/24 18:05 Potassium Chloride 20 Meq Packet (For Liquid) FEED TUBE Not Given DAILY [facility] Radiology Results: ITS Impressions Chest/Abdomen/Pelvis CT 08/31/24 13:07 IMPRESSION: 1. Findings compatible with small bowel obstruction, as detailed above. 2. Pneumoperitoneum. This can be related to G-tube placement if the procedure was performed recently. Correlate clinically and with physical examination to rule out pneumoperitoneum secondary to perforated viscus. 3. Findings concerning for pneumonia, as detailed above. Small Bowel X-Ray 09/03/24 22:06 IMPRESSION: Marked diffuse small bowel dilation. Contrast proceeded through small bowel in an antegrade fashion but did not appear to reach the large bowel by the 4 hour images. This may represent high-grade partial or complete obstruction. NG tube side port terminates at the GE junction, consider advancing. Recommend 24 hour follow-up abdominal radiography (at 13:30 on 08/27/2024). Abdomen X-Ray 09/04/24 08:28 IMPRESSION: 1. Nasogastric tube tip in proximal side port in the body of the stomach along with a percutaneous gastrostomy tube. 2. Persistent pneumoperitoneum potentially related to recent percutaneous gastrostomy tube placement. 3. Opacities at the bilateral lung bases which could represent atelectasis or pneumonia. Labs Labs: Laboratory Results - last 24 hr 09/03/24 09/03/24 09/03/24 05:53 11:32 17:05 WBC RBC Hgb Hct MCV MCH MCHC RDW Plt Count MPV Immature Gran % (Auto) Neut % (Auto) Lymph % (Auto) [place] % (Auto) Eos % (Auto) Baso % (Auto) Lymph # (Auto) [place] # (Auto) Eos # (Auto) Baso # (Auto) Abs Immat Gran (auto) Absolute Neuts (auto) Absolute Nucleated RBC Nucleated RBC % PT INR APTT Sodium Potassium Chloride Carbon Dioxide Anion Gap BUN Creatinine Estim Creat Clear Calc Estimated GFR Glucose POC Capillary Glucose 103 109 H Calcium Phosphorus Magnesium Transferrin Total Bilirubin AST ALT Alkaline Phosphatase Total Protein Albumin Triglycerides 97 09/03/24 09/03/24 09/04/24 22:28 23:50 05:53 WBC RBC Hgb Hct MCV MCH MCHC RDW Plt Count MPV Immature Gran % (Auto) Neut % (Auto) Lymph % (Auto) [place] % (Auto) Eos % (Auto) Baso % (Auto) Lymph # (Auto) [place] # (Auto) Eos # (Auto) Baso # (Auto) Abs Immat Gran (auto) Absolute Neuts (auto) Absolute Nucleated RBC Nucleated RBC % PT 14.8 H INR 1.2 APTT 23.1 Sodium 133 L Potassium 4.2 Chloride 101 Carbon Dioxide 25 Anion Gap 7 BUN 41 H D Creatinine 0.68 L Estim Creat Clear Calc 65 Estimated GFR > 60 Glucose 124 H POC Capillary Glucose 144 H Calcium 8.5 Phosphorus 4.2 Magnesium 2.2 2.3 Transferrin 115 L Total Bilirubin 0.6 AST 48 ALT 39 Alkaline Phosphatase 79 Total Protein 5.0 L Albumin 2.4 L Triglycerides 09/04/24 09/04/24 05:54 06:28 WBC 3.5 L RBC 3.51 L Hgb 10.5 L Hct 33.3 L MCV 94.9 MCH 29.9 MCHC 31.5 L RDW 17.6 H Plt Count 232 MPV 9.2 Immature Gran % (Auto) 0.0 Neut % (Auto) 83.2 H Lymph % (Auto) 11.6 L [place] % (Auto) 4.3 Eos % (Auto) 0.0 Baso % (Auto) 0.9 Lymph # (Auto) 0.41 L [place] # (Auto) 0.2 Eos # (Auto) 0.0 Baso # (Auto) 0.0 Abs Immat Gran (auto) 0.00 Absolute Neuts (auto) 2.9 Absolute Nucleated RBC 0.000 Nucleated RBC % 0.0 PT INR APTT Sodium Potassium Chloride Carbon Dioxide Anion Gap BUN Creatinine Estim Creat Clear Calc Estimated GFR Glucose POC Capillary Glucose 124 H Calcium Phosphorus Magnesium Transferrin Total Bilirubin AST ALT Alkaline Phosphatase Total Protein Albumin Triglycerides
--- NOTE | 2024-09-04 11:43 | P.PNIM_ITS ---
Progress Note: A&P Assessment and Plan (1) Status post insertion of percutaneous endoscopic gastrostomy (PEG) tube: Code(s): Z93.1 - Gastrostomy status Status: Acute Assessment and Plan: On 08/25/2024 by GI G-tube placed for severe malnutrition. not tolerating tube feeds Tube feeding (2) Hypokalemia: Code(s): E87.6 - Hypokalemia Status: Acute Assessment and Plan: resolved (3) Hyponatremia: Code(s): E87.1 - Hypo-osmolality and hyponatremia Status: Acute Assessment and Plan: NA 129 IVF and monitor (4) Hypocalcemia: Code(s): E83.51 - Hypocalcemia Status: Acute Assessment and Plan: tums (5) Hypotension: Code(s): I95.9 - Hypotension, unspecified Status: Acute Assessment and Plan: Likely due to dehydration and electrolyte imbalance Replete calcium stable (6) Protein-calorie malnutrition, severe: Code(s): E43 - Unspecified severe protein-calorie malnutrition Status: Acute Assessment and Plan: NPO until SBO resolves Continue Megasetrol Continue home Reglan and Carafate Continue PPN PT and OT (7) [employer] (current) use of anticoagulants: Code(s): Z79.01 - [facility] (current) use of anticoagulants Status: Acute Assessment and Plan: History of DVT and PE Does not appear to be on current anticoagulation (8) Adenocarcinoma of cecum: Onset Date: ~01/2023 Code(s): C18.0 - Malignant neoplasm of cecum Status: Chronic Assessment and Plan: Ct on 07/31/24 Findings within the chest, abdomen and pelvis which demonstrate a positive response to treatment See plan above (9) Nausea and vomiting in adult: Code(s): R11.2 - Nausea with vomiting, unspecified Status: Acute Assessment and Plan: SBO CT AP showed SBO NPO, NG tube with intermittent suction , continue PPN Gastrografin small bowel through showed High grade partial vs Complete SBO Gen surgery following Hypoglycemia, resolved on PPN CT AP ordered to rule out obstruction monitor DVT prophylaxis on Sq Lovenox Subjective Date/time seen: 09/04/24 11:43 Interval history: Comfortable at bedside Noted vomiting this morning Review of Systems Review of Systems: 12 systems were reviewed and are negativ e except for as per HPI. Exam Narrative: General: Chronically ill, no acute distress, cachectic HEENT: normocephalic, atraumatic. Mucous membranes moist. EOMI, PERRLA, bilateral sclera anicteric, no conjunctival injection. Neck supple without JVD, lymphadenopathy, or bruit. Respiratory: clear to ascultation bilaterally. No rales/rhonic/wheezes. Cardiovascular: Regular rate and rhythm, normal S1-S2 upon ascultation. No murmurs, rubs, or clicks. PMI is nondisplaced, capillary refill less than 3 second. Abdomen: Soft, round, no pulsatile masses, nondistended and nontender. No rebound, no guarding. No CVA tenderness, no hepatosplenomegaly. Bowel sounds present to all four quadrants. No high pitch or tinkling sounds, resonant to percussion. G-tube in place Extremities: No cyanosis, clubbing, or edema present. Pulses are palpable 2/2. Active ROM to all four extremities. Neuro: Alert and orientated x 4. PERRLA. Cranial nerves 2-12 intact without focal deficit. Skin: Warm, dry, and intact, without rash, erythema, or lesion. Psych: pleasant, cooperative, normal speech, normal affect, no hallucinations, n o dysarthia Objective Data Vital Signs Vital Signs: Vital Signs - 24 hr 09/03/24 21:50 09/04/24 06:00 Temperature 97.5 F L 97.8 F Pulse Rate 123 H 123 H Respiratory Rate 18 20 Blood Pressure 105/70 100/70 Pulse Oximetry 96 90 Intake/Output Intake/Output: Intake & Output 09/01/24 09/02/24 09/03/24 09/04/24 23:59 23:59 23:59 23:59 Intake Total 2550 2724.7 3591.3 1250 Output Total 877 281 0138 2150 Balance 1750 1924.7 1921.3 -900 Meds/Results Medications: Active Medications Generic Name Dose Route Start Last Admin Trade Name Freq PRN Reason Stop Dose Admin Acetaminophen 650 mg 08/25/24 14:38 Acetaminophen 325 Mg Tablet PO Q4H PRN Mild Pain (1-3) or Fever Hydrocodone Bitart/Acetaminophen 1 tab 08/25/24 14:38 08/30/24 17:47 Hydrocodone/Acetaminophen (*Crx) 5-325 Mg Tablet PO 1 tab Q4H PRN Administration Moderate Pain (4-6) Calcium Carbonate 200 mg 08/28/24 17:00 09/03/24 17:46 Calcium Carbonate (Tums) 500 Mg (200 Mg Elemental) FEED TUBE Not Given BID KULDIP Dextrose 12.5 gm 08/30/24 07:17 08/30/24 07:45 Dextrose 50% 25 Gm/50 Ml Syringe IV PUSH 12.5 gm PRN PRN Administration Hypoglycemia Protocol Docusate Sodium 100 mg 08/25/24 17:00 09/03/24 17:46 Docusate Sodium 100 Mg Capsule PO Not Given BID [facility] Enoxaparin Sodium 40 mg 08/28/24 09:00 09/04/24 07:59 Enoxaparin 40 Mg/0.4 Ml Syringe SUB-Q 40 mg QAM KULDIP Administration Glucagon 1 mg 08/30/24 07:17 Glucagon For Inj 1 Mg Vial IM PRN PRN Hypoglycemia Protocol Glucose 15 gm 08/30/24 07:17 Glucose Oral Gel 15 Gm Of Glucse In 37.5 Gm Tube PO PRN PRN Hypoglycemia Protocol Dextrose 1,000 mls @ 100 mls/hr 08/30/24 07:17 Dextrose 5% 1,000 Ml IVPB PRN PRN Hypoglycemia Protocol Dextrose 1,000 mls @ 50 mls/hr 08/30/24 14:11 Dextrose 10% IV CONT .Q20H PRN if PN is interrupted Fat Emulsion Intravenous 250 mls @ 20.833 mls/hr 08/30/24 15:00 09/04/24 05:49 Lipids 20% IVPB Infused Q24H KULDIP Infusion Amino Acids/Electrolytes/Dextrose 1,000 mls @ 80 mls/hr 08/30/24 15:00 09/04/24 07:59 Clinimix E 4.25%/5% Solution IV CONT 80 mls/hr .[id number] [facility] Administration Protocol Insulin Human Regular 2 - 5 units 08/30/24 18:00 09/04/24 06:47 Insulin Human Regular (*Bkc) 100 Units/Ml SUB-Q Not Given Q6HR [facility] Protocol Megestrol Acetate 400 mg 08/25/24 17:00 09/03/24 17:46 Megestrol Acetate (*Chemo) Oral Susp 40 Mg/Ml Syr PO Not Given BID [facility] Miscellaneous Information 1 each 09/04/24 00:01 Please Renew [place] & Morphine. Per [employer] Procedure, It Will Discontinue If Not Renewed XX 10/04/24 00:00 CLARIFY [facility] Morphine Sulfate 2 mg 08/25/24 14:38 Morphine Sulfate (*Crx) 2 Mg/Ml Inj IV PUSH Q4H PRN Pain Rated 7-10 Ondansetron HCl 4 mg 08/31/24 12:25 09/04/24 07:59 Ondansetron Inj 4 Mg/2 Ml Vial IV PUSH 4 mg Q4H PRN Administration Nausea And Vomiting Pantoprazole Sodium 40 mg 09/01/24 21:00 09/04/24 07:59 Pantoprazole Sodium Iv 40 Mg Vial IV PUSH 40 mg Q12HR KULDIP Administration Potassium Chloride 40 meq 08/27/24 09:00 09/03/24 18:05 Potassium Chloride 20 Meq Packet (For Liquid) FEED TUBE Not Given DAILY [facility] Radiology Results: ITS Impressions Chest/Abdomen/Pelvis CT 08/31/24 13:07 IMPRESSION: 1. Findings compatible with small bowel obstruction, as detailed above. 2. Pneumoperitoneum. This can be related to G-tube placement if the procedure was performed recently. Correlate clinically and with physical examination to rule out pneumoperitoneum secondary to perforated viscus. 3. Findings concerning for pneumonia, as detailed above. Small Bowel X-Ray 09/03/24 22:06 IMPRESSION: Marked diffuse small bowel dilation. Contrast proceeded through small bowel in an antegrade fashion but did not appear to reach the large bowel by the 4 hour images. This may represent high-grade partial or complete obstruction. NG tube side port terminates at the GE junction, consider advancing. Recommend 24 hour follow-up abdominal radiography (at 13:30 on 08/27/2024). Abdomen X-Ray 09/04/24 11:05 IMPRESSION: 1. Persistent large amount of oral contrast material in the colon and several persistent dilated loops of small bowel suggesting persistent small bowel obstruction. Labs Labs: Laboratory Results - last 24 hr 09/03/24 09/03/24 09/03/24 05:53 11:32 17:05 WBC RBC Hgb Hct MCV MCH MCHC RDW Plt Count MPV Immature Gran % (Auto) Neut % (Auto) Lymph % (Auto) [place] % (Auto) Eos % (Auto) Baso % (Auto) Lymph # (Auto) [place] # (Auto) Eos # (Auto) Baso # (Auto) Abs Immat Gran (auto) Absolute Neuts (auto) Absolute Nucleated RBC Nucleated RBC % PT INR APTT Sodium Potassium Chloride Carbon Dioxide Anion Gap BUN Creatinine Estim Creat Clear Calc Estimated GFR Glucose POC Capillary Glucose 103 109 H Calcium Phosphorus Magnesium Transferrin Total Bilirubin AST ALT Alkaline Phosphatase Total Protein Albumin Triglycerides 97 09/03/24 09/03/24 09/04/24 22:28 23:50 05:53 WBC RBC Hgb Hct MCV MCH MCHC RDW Plt Count MPV Immature Gran % (Auto) Neut % (Auto) Lymph % (Auto) [place] % (Auto) Eos % (Auto) Baso % (Auto) Lymph # (Auto) [place] # (Auto) Eos # (Auto) Baso # (Auto) Abs Immat Gran (auto) Absolute Neuts (auto) Absolute Nucleated RBC Nucleated RBC % PT 14.8 H INR 1.2 APTT 23.1 Sodium 133 L Potassium 4.2 Chloride 101 Carbon Dioxide 25 Anion Gap 7 BUN 41 H D Creatinine 0.68 L Estim Creat Clear Calc 65 Estimated GFR > 60 Glucose 124 H POC Capillary Glucose 144 H Calcium 8.5 Phosphorus 4.2 Magnesium 2.2 2.3 Transferrin 115 L Total Bilirubin 0.6 AST 48 ALT 39 Alkaline Phosphatase 79 Total Protein 5.0 L Albumin 2.4 L Triglycerides 09/04/24 09/04/24 05:54 06:28 WBC 3.5 L RBC 3.51 L Hgb 10.5 L Hct 33.3 L MCV 94.9 MCH 29.9 MCHC 31.5 L RDW 17.6 H Plt Count 232 MPV 9.2 Immature Gran % (Auto) 0.0 Neut % (Auto) 83.2 H Lymph % (Auto) 11.6 L [place] % (Auto) 4.3 Eos % (Auto) 0.0 Baso % (Auto) 0.9 Lymph # (Auto) 0.41 L [place] # (Auto) 0.2 Eos # (Auto) 0.0 Baso # (Auto) 0.0 Abs Immat Gran (auto) 0.00 Absolute Neuts (auto) 2.9 Absolute Nucleated RBC 0.000 Nucleated RBC % 0.0 PT INR APTT Sodium Potassium Chloride Carbon Dioxide Anion Gap BUN Creatinine Estim Creat Clear Calc Estimated GFR Glucose POC Capillary Glucose 124 H Calcium Phosphorus Magnesium Transferrin Total Bilirubin AST ALT Alkaline Phosphatase Total Protein Albumin Triglycerides Quality VTE Prophylaxis VTE prophylaxis: mechanical ordered and pharmacologic ordered
[2024-09-04] MEDS: LIDOCAINE 1% PF INJ 5 ML VIAL INFILTRATE (13:35)
[2024-09-04 14:00] VITALS: BP 101/61; PULSE 101; RESP 18; TEMP 36.5; O2SAT 92
[2024-09-04] MEDS: ALBUMIN HUMAN 25% 25 GM/100 ML 100 ML IVPB (14:52)
[2024-09-04] MEDS: CENTRAL LINE FLUSH 10 ML IV PUSH ×2 (15:00→21:51)
[2024-09-04] MEDS: FAT EMULSIONS IV 20% 250 ML 20.8 ML IVPB (15:00)
--- NOTE | 2024-09-04 15:00 | PCPTNOTE ---
The patient treatment was not able to be completed due to testing. Will plan to continue treatment per plan of care.
[2024-09-04 20:32] LABS: Triglycerides 156 mg/dL (<150)
[2024-09-04 21:24] VITALS: BP 113/80; PULSE 99; RESP 24; TEMP 36.7; O2SAT 83
[2024-09-05 06:00] VITALS: BP 109/76; PULSE 96; RESP 24; TEMP 36.7; O2SAT 90
[2024-09-05 07:22] LABS: Anion Gap 4 mmol/L (4-12); Blood Urea Nitrogen 33 mg/dL (9-20); Calcium 8.4 mg/dL (8.4-10.2); Carbon Dioxide 29 mmol/L (22-30); Chloride 98 mmol/L (98-107); Estimated CRCL calculation 90 ml/min; Estimated Glomerular Filt Rate > 60; Glucose 90 mg/dL (65-110); Potassium 3.3 mmol/L (3.4-5.0); Sodium 131 mmol/L (137-145)
--- NOTE | 2024-09-05 07:34 | PC.NURSE ---
Called pharmacist about switching PPN to TPN since patient has PICC line access and no peripheral line access. Directed to hospitalist. Asked hospitalist Alicia Blackwell for TPN orders and was directed to incubator tender. Per incubator tender edu Khoury to give the PPN at a rate of 40 ml/hr (currently going at 80 mL/hr) and she will follow up with the incubator tender assigned to this patient's case for further order changes if needed.
[2024-09-05] MEDS: CENTRAL LINE FLUSH 10 ML IV PUSH ×3 (07:48→21:09)
[2024-09-05] MEDS: PANTOPRAZOLE SODIUM IV 40 MG VIAL IV PUSH ×2 (07:54→21:09)
[2024-09-05] MEDS: ENOXAPARIN 40 MG/0.4 ML SYRINGE SUB-Q (07:54)
[2024-09-05] MEDS: AMINO ACIDS 4.25%/D5W/LYTES/CA 1,000 ML 40 ML IV CONT (07:54)
--- NOTE | 2024-09-05 10:08 | P.PNGS_ITS ---
Progress Note: A&P Assessment and Plan (1) Small bowel obstruction: Code(s): K56.609 - Unspecified intestinal obstruction, unspecified as to partial versus complete obstruction Status: Acute Assessment and Plan: * Abdominal Xray today demonstrated moderately dilated small bowel with contrast throughout the colon, likely ileus or partial small obstruction. * Patient had bowel movement yesterday. Complains of diffuse intermittent abdominal pain. Morphine resumed. Consider clamping trial today. (2) Protein-calorie malnutrition, severe: Code(s): E43 - Unspecified severe protein-calorie malnutrition Status: Acute Assessment and Plan: * Patient has PICC line. Continue TPN. * Albumin 2.4. Patient is a poor surgical candidate. (3) Status post insertion of percutaneous endoscopic gastrostomy (PEG) tube: Code(s): Z93.1 - Gastrostomy status Status: Acute Plan Discussed patient's case and plan of care with Dr. Marte. Subjective Subjective Date/Time Seen: 09/05/24 10:08 Interval history: Patient is feeling very discouraged today. He states that he is dying and that he has been for the past 5 months. States that he was getting nauseous with tube feeds, but has been doing ok with just PPN. NG tube with 3 L output yesterday, but only about 150 today. BM+. WBC 3.5. Exam GI: Inspection: non-distended GI Palp: Yes Tenderness to palpation present (GI) (diffuse) Other: Patient severely cachectic. G-tube dressing clean and dry. Objective Data Vital Signs Vital Signs: Vital Signs - 24 hr 09/04/24 14:00 09/04/24 21:24 09/05/24 06:00 Temperature 97.7 F 98.1 F 98.1 F Pulse Rate 101 H 99 96 Respiratory Rate 18 24 H 24 H Blood Pressure 101/61 113/80 109/76 Pulse Oximetry 92 83 L 90 Oxygen Delivery 09/05/24 08:00 Temperature Pulse Rate Respiratory Rate Blood Pressure Pulse Oximetry Oxygen Delivery Room Air Intake/Output Intake/Output: Intake & Output 09/02/24 09/03/24 09/04/24 09/05/24 23:59 23:59 23:59 23:59 Intake Total 2724.7 3591.3 2250 821.3 Output Total 800 1670 3150 200 Balance 1924.7 1921.3 -900 621.3 Meds/Results Medications: Active Medications Generic Name Dose Route Start Last Admin Trade Name Freq PRN Reason Stop Dose Admin Acetaminophen 650 mg 08/25/24 14:38 Acetaminophen 325 Mg Tablet PO Q4H PRN Mild Pain (1-3) or Fever Calcium Carbonate 200 mg 08/28/24 17:00 09/05/24 07:55 Calcium Carbonate (Tums) 500 Mg (200 Mg Elemental) FEED TUBE Not Given BID KULDIP Dextrose 12.5 gm 08/30/24 07:17 08/30/24 07:45 Dextrose 50% 25 Gm/50 Ml Syringe IV PUSH 12.5 gm PRN PRN Administration Hypoglycemia Protocol Docusate Sodium 100 mg 08/25/24 17:00 09/05/24 07:55 Docusate Sodium 100 Mg Capsule PO Not Given BID KULDIP Enoxaparin Sodium 40 mg 08/28/24 09:00 09/05/24 07:54 Enoxaparin 40 Mg/0.4 Ml Syringe SUB-Q 40 mg QAM KULDIP Administration Glucagon 1 mg 08/30/24 07:17 Glucagon For Inj 1 Mg Vial IM PRN PRN Hypoglycemia Protocol Glucose 15 gm 08/30/24 07:17 Glucose Oral Gel 15 Gm Of Glucse In 37.5 Gm Tube PO PRN PRN Hypoglycemia Protocol Dextrose 1,000 mls @ 100 mls/hr 08/30/24 07:17 Dextrose 5% 1,000 Ml IVPB PRN PRN Hypoglycemia Protocol Dextrose 1,000 mls @ 50 mls/hr 08/30/24 14:11 Dextrose 10% IV CONT .Q20H PRN if PN is interrupted Fat Emulsion Intravenous 250 mls @ 20.833 mls/hr 08/30/24 15:00 09/04/24 15:00 Lipids 20% IVPB 20.8 mls/hr Q24H KULDIP Administration Amino Acids/Electrolytes/Dextrose 1,000 mls @ 80 mls/hr 08/30/24 15:00 09/05/24 07:54 Clinimix E 4.25%/5% Solution IV CONT 40 mls/hr .[id number] KULDIP Administration Protocol Potassium Chloride 40 meq/ 520 mls @ 130 mls/hr 09/05/24 09:00 Sodium Chloride IVPB 09/05/24 12:59 ONCE ONE Insulin Human Regular 2 - 5 units 08/30/24 18:00 09/05/24 07:48 Insulin Human Regular (*Bkc) 100 Units/Ml SUB-Q Not Given Q6HR [facility] Protocol Megestrol Acetate 400 mg 08/25/24 17:00 09/05/24 07:55 Megestrol Acetate (*Chemo) Oral Susp 40 Mg/Ml Syr PO Not Given BID [facility] Miscellaneous Information 1 each 09/04/24 00:01 Please Renew [place] & Morphine. Per [employer] Procedure, It Will Discontinue If Not Renewed XX 10/04/24 00:00 CLARIFY [facility] Ondansetron HCl 4 mg 08/31/24 12:25 09/04/24 07:59 Ondansetron Inj 4 Mg/2 Ml Vial IV PUSH 4 mg Q4H PRN Administration Nausea And Vomiting Pantoprazole Sodium 40 mg 09/01/24 21:00 09/05/24 07:54 Pantoprazole Sodium Iv 40 Mg Vial IV PUSH 40 mg Q12HR [facility]UL[facility]IP Administration Sodium Chloride 10 ml 09/04/24 14:00 09/05/24 07:48 Central Line Flush IV PUSH 10 ml Q8HR K[facility]IP Administration Sodium Chloride 10 ml 09/04/24 14:16 Central Line Flush IV PUSH PRN PRN with TPN bag changes Sodium Chloride 20 ml 09/04/24 14:16 Central Line Flush IV PUSH PRN PRN after blood draws Radiology Results: ITS Impressions Chest/Abdomen/Pelvis CT 08/31/24 13:07 IMPRESSION: 1. Findings compatible with small bowel obstruction, as detailed above. 2. Pneumoperitoneum. This can be related to G-tube placement if the procedure was performed recently. Correlate clinically and with physical examination to rule out pneumoperitoneum secondary to perforated viscus. 3. Findings concerning for pneumonia, as detailed above. Small Bowel X-Ray 09/03/24 22:06 IMPRESSION: Marked diffuse small bowel dilation. Contrast proceeded through small bowel in an antegrade fashion but did not appear to reach the large bowel by the 4 hour images. This may represent high-grade partial or complete obstruction. NG tube side port terminates at the GE junction, consider advancing. Recommend 24 hour follow-up abdominal radiography (at 13:30 on 08/27/2024). Chest X-Ray 09/04/24 14:50 IMPRESSION: Left upper extremity PICC line in good position and ready for immediate use. Abdomen X-Ray 09/05/24 06:44 Impression: 1: Moderately dilated small bowel with contrast throughout the colon. Differential diagnosis includes ileus and partial small bowel obstruction. Labs Labs: Laboratory Results - last 24 hr 09/04/24 09/04/24 09/04/24 05:49 11:51 16:45 Sodium Potassium Chloride Carbon Dioxide Anion Gap BUN Creatinine Estim Creat Clear Calc Estimated GFR Glucose POC Capillary Glucose 106 H 111 H Calcium Phosphorus Triglycerides 156 H 09/05/24 09/05/24 09/05/24 01:59 06:27 06:36 Sodium 131 L Potassium 3.3 L Chloride 98 Carbon Dioxide 29 Anion Gap 4 BUN 33 H Creatinine 0.47 L Estim Creat Clear Calc 90 Estimated GFR > 60 Glucose 90 POC Capillary Glucose 92 99 Calcium 8.4 Phosphorus 2.9 Triglycerides
[2024-09-05] MEDS: POTASSIUM CHLORIDE INJ 40 MEQ in SODIUM CHLORIDE 0.9% IV 500 ML 130 MEQ IVPB (10:12)
[2024-09-05 10:25] LABS: Hematocrit 24.3 % (42.0-52.0); Hemoglobin 7.8 g/dL (14.0-18.0); Immature Granulocyte Percent A 0.6 % (0-0.5); Lymphocytes Absolute Auto 0.67 K/mm3 (0.9-3.2); Mean Corpuscular HGB Conc 32.1 g/dl (32-36); Mean Corpuscular Hemoglobin 30.0 pg (26-34); Mean Corpuscular Volume 93.5 fl (80-100); Nucleated Red Blood Cells Absolute Auto 0.000 K/mm3 (0.0-0.012); Nucleated Red Blood Cells Perc 0.0 % (0.0-0.2); Platelet Count Result 191 k/mm3 (150-375); Red Blood Count 2.60 M/mm3 (4.6-6.20); White Blood Count 9.3 K/mm3 (4.5-10.0)
--- NOTE | 2024-09-05 12:11 | PC.NURSE ---
Spoke to Megan steerer, about current PPN orders needing to be switched to TPN as patient has PICC line. Per steerer ok to increase PPN to 80 mL/hr to finish out bag and then switch to TPN orders after bag runs out tonight.
--- NOTE | 2024-09-05 12:16 | PCNFU ---
Nutrition Follow-Up Complete: Severe Protein Calorie Malnutrition as related to inadequate protein energy intake with increased protein energy needs in setting of chronic disease as evidenced by minimal oral intake for > 1-2 months; significant weight loss of 42% (60 ibs) 4 months; severe subcutaneous fat loss(orbital fat pads, triceps) and muscle wasting (temporalis/clavicle) Goal:Meet estimated nutritional needs. Pt meeting goal via alternative nutrition support Pt current nutrition is PPN clinimix E 4.25/5 @ 80ml/hr. Nutrition recommendation: change to TPN clinimix E / @ 40ml/hr Last recorded weight is 48.8 kg. Bowel Motility: +09/04 Labs Reviewed: Na:135, K:3.3, BUN:33, Cr:0.47 Meds Noted: megace, reglan, KCL, lovenox Skin: WNL Additional Notes: Pt NPO at this time, tube feedings held due to intolerance. PPN running at 80ml/hr providing 1153kcals, 82g protein. Picc line placed and TPN to start, recommend 40ml/hr to provide 1182kcals, 48g protein over 24 hrs. May increase TPN to 50ml/hr to provide 1352kcals, 60g protein to meet 100% of needs Will monitor weight, labs, skin, diet orders, meds. Follow up every Wednesday and Wednesday.
--- NOTE | 2024-09-05 13:10 | P.PNIM_ITS ---
Progress Note: A&P Assessment and Plan (1) Status post insertion of percutaneous endoscopic gastrostomy (PEG) tube: Code(s): Z93.1 - Gastrostomy status Status: Acute Assessment and Plan: On 08/25/2024 by GI G-tube placed for severe malnutrition. not tolerating tube feeds Tube feeding 09/05/24: * Not currently receiving TF secondary to SBO. * PPN transitioning to TPN today * Severe protein/calorie deficit (2) Hypokalemia: Code(s): E87.6 - Hypokalemia Status: Resolved Assessment and Plan: resolved (3) Hyponatremia: Code(s): E87.1 - Hypo-osmolality and hyponatremia Status: Acute Assessment and Plan: NA 129 IVF and monitor 09/05/24: * Improving with PPN. Today's Sodium is 131. * Continue current replacement with PPN/TPN. (4) Hypocalcemia: Code(s): E83.51 - Hypocalcemia Status: Acute Assessment and Plan: tums 09/05/24: * Calcium level increased to 8.4. (5) Hypotension: Code(s): I95.9 - Hypotension, unspecified Status: Acute Assessment and Plan: Likely due to dehydration and electrolyte imbalance Replete calcium stable 09/05/24: * Stable VS over last 24 hours 100-113/60s-80s (6) Protein-calorie malnutrition, severe: Code(s): E43 - Unspecified severe protein-calorie malnutrition Status: Acute Assessment and Plan: NPO until SBO resolves Continue Megasetrol Continue home Reglan and Carafate Continue PPN PT and OT 09/05/24: * PICC line now placed, start TPN. (7) shelter (current) use of anticoagulants: Code(s): Z79.01 - terminal supervisor (current) use of anticoagulants Status: Acute Assessment and Plan: History of DVT and PE Does not appear to be on current anticoagulation 09/05/24: * Continue Lovenox (8) Adenocarcinoma of cecum: Onset Date: ~01/2023 Code(s): C18.0 - Malignant neoplasm of cecum Status: Chronic Assessment and Plan: Ct on 07/31/24 Findings within the chest, abdomen and pelvis which demonstrate a positive response to treatment See plan above (9) Nausea and vomiting in adult: Code(s): R11.2 - Nausea with vomiting, unspecified Status: Acute Assessment and Plan: SBO CT AP showed SBO NPO, NG tube with intermittent suction , continue PPN Gastrografin small bowel through showed High grade partial vs Complete SBO Gen surgery following Time Spent With Patient Time: Goals of care discussed with pt and he continues to want everything done that is possible. Time with patient: 25 - 35 minutes Subjective Date/time seen: 09/05/24 13:10 Interval history: This pt was examined at the bedside today in interval assessment. He appears to be depressed about his overall situation and states, I am dying, I feel like a lab rat for all of you. Pt voices his frustration with the overall situation and is unhappy because we will not allow him to eat. Pt currently is covered by surgery for his SBO in the setting of having Adenocarcinoma of cecum, status post G-tube placement and ultimately a 60 lb weight loss over three months due to severe N/V from chemo that caused him to be admitted to the hospital. It was here that it was found that he had a high grade partial vs. complete SBO. He is currently receiving PPN and is not receiving TF's as he has an NG down for decompression. Small bowel follow through again showed near complete vs. complete obstruction and repeat Abd xray this AM despite two small BM's yesterday showed moderately dilated Small bowel with contrast throughout the colon representing a likely ileus or partial SBO. He continues to complain of diffuse intermittent abdominal pain and the NG tube is having less output. Morphine has been resumed and they may consider a clamping trial today to see how he does, but overall he is considered a poor candidate for any further surgery per Gen Sgy team. Pt was without any new complaints today, however, as noted, appears to be in a state of despair regarding his health status. Goals of care conversation was had with the pt and he continues to want all treatments done. Review of Systems Review of Systems: All systems reviewed & are unremarkable except as noted in HPI and below Exam Narrative: General: Chronically ill, no acute distress, cachectic HEENT: normocephalic, atraumatic. Mucous membranes moist. No JVD or LN. Respiratory: clear to auscultation bilaterally. No rales/rhonic/wheezes. Cardiovascular: RRR, S1 and S2 present. NO S3, S4, m,r,g,h Abdomen: Soft, round, no pulsatile masses, nondistended and nontender. No rebound, no guarding. No CVA tenderness, no hepatosplenomegaly. Bowel sounds diminished throughout. G-tube in place Extremities: No cyanosis, clubbing, or edema present. Pulses are palpable 2/2. Active ROM to all four extremities. Neuro: A&Ox4, non-focal exam, generalized weakness present. Skin: Warm, dry, and intact, without rash, erythema, or lesion. Skin appears pale in color. Psych: pleasant, cooperative, normal speech, normal affect, no hallucinations, no dysarthia Objective Data Vital Signs Vital Signs: Vital Signs - 24 hr 09/04/24 14:00 09/04/24 21:24 09/05/24 06:00 Temperature 97.7 F 98.1 F 98.1 F Pulse Rate 101 H 99 96 Respiratory Rate 18 24 H 24 H Blood Pressure 101/61 113/80 109/76 Pulse Oximetry 92 83 L 90 Oxygen Delivery 09/05/24 08:00 Temperature Pulse Rate Respiratory Rate Blood Pressure Pulse Oximetry Oxygen Delivery Room Air Intake/Output Intake/Output: Intake & Output 09/02/24 09/03/24 09/04/24 09/05/24 23:59 23:59 23:59 23:59 Intake Total 2724.7 3591.3 2250 990.6 Output Total 800 1670 3150 200 Balance 1924.7 1921.3 -900 790.6 Meds/Results Medications: Active Medications Generic Name Dose Route Start Last Admin Trade Name Freq PRN Reason Stop Dose Admin Acetaminophen 650 mg 08/25/24 14:38 Acetaminophen 325 Mg Tablet PO Q4H PRN Mild Pain (1-3) or Fever Calcium Carbonate 200 mg 08/28/24 17:00 09/05/24 07:55 Calcium Carbonate (Tums) 500 Mg (200 Mg Elemental) FEED TUBE Not Given BID KULDIP Dextrose 12.5 gm 08/30/24 07:17 08/30/24 07:45 Dextrose 50% 25 Gm/50 Ml Syringe IV PUSH 12.5 gm PRN PRN Administration Hypoglycemia Protocol Docusate Sodium 100 mg 08/25/24 17:00 09/05/24 07:55 Docusate Sodium 100 Mg Capsule PO Not Given BID [facility]ULDIP Enoxaparin Sodium 40 mg 08/28/24 09:00 09/05/24 07:54 Enoxaparin 40 Mg/0.4 Ml Syringe SUB-Q 40 mg QAM KULDIP Administration Glucagon 1 mg 08/30/24 07:17 Glucagon For Inj 1 Mg Vial IM PRN PRN Hypoglycemia Protocol Glucose 15 gm 08/30/24 07:17 Glucose Oral Gel 15 Gm Of Glucse In 37.5 Gm Tube PO PRN PRN Hypoglycemia Protocol Dextrose 1,000 mls @ 100 mls/hr 08/30/24 07:17 Dextrose 5% 1,000 Ml IVPB PRN PRN Hypoglycemia Protocol Dextrose 1,000 mls @ 50 mls/hr 08/30/24 14:11 Dextrose 10% IV CONT .Q20H PRN if PN is interrupted Fat Emulsion Intravenous 250 mls @ 20.833 mls/hr 08/30/24 15:00 09/04/24 15:00 Lipids 20% IVPB 20.8 mls/hr Q24H KUL[facility]IP Administration Amino Acids/Electrolytes/Dextrose 1,000 mls @ 80 mls/hr 08/30/24 15:00 09/05/24 12:08 Clinimix E 4.25%/5% Solution IV CONT 80 mls/hr .[id number] K[facility]IP Infusion Protocol Insulin Human Regular 2 - 5 units 08/30/24 18:00 09/05/24 12:11 Insulin Human Regular (*Bkc) 100 Units/Ml SUB-Q Not Given Q6HR [facility] Protocol Megestrol Acetate 400 mg 08/25/24 17:00 09/05/24 07:55 Megestrol Acetate (*Chemo) Oral Susp 40 Mg/Ml Syr PO Not Given BID KULDIP Morphine Sulfate 2 mg 09/05/24 10:21 Morphine Sulfate (*Crx) 2 Mg/Ml Inj IV PUSH Q4H PRN Pain Rated 7-10 Ondansetron HCl 4 mg 08/31/24 12:25 09/04/24 07:59 Ondansetron Inj 4 Mg/2 Ml Vial IV PUSH 4 mg Q4H PRN Administration Nausea And Vomiting Pantoprazole Sodium 40 mg 09/01/24 21:00 09/05/24 07:54 Pantoprazole Sodium Iv 40 Mg Vial IV PUSH 40 mg Q12HR KULDIP Administration Sodium Chloride 10 ml 09/04/24 14:00 09/05/24 07:48 Central Line Flush IV PUSH 10 ml Q8HR KULDIP Administration Sodium Chloride 10 ml 09/04/24 14:16 Central Line Flush IV PUSH PRN PRN with TPN bag changes Sodium Chloride 20 ml 09/04/24 14:16 Central Line Flush IV PUSH PRN PRN after blood draws Radiology Results: ITS Impressions Chest/Abdomen/Pelvis CT 08/31/24 13:07 IMPRESSION: 1. Findings compatible with small bowel obstruction, as detailed above. 2. Pneumoperitoneum. This can be related to G-tube placement if the procedure was performed recently. Correlate clinically and with physical examination to rule out pneumoperitoneum secondary to perforated viscus. 3. Findings concerning for pneumonia, as detailed above. Small Bowel X-Ray 09/03/24 22:06 IMPRESSION: Marked diffuse small bowel dilation. Contrast proceeded through small bowel in an antegrade fashion but did not appear to reach the large bowel by the 4 hour i mages. This may represent high-grade partial or complete obstruction. NG tube side port terminates at the GE junction, consider advancing. Recommend 24 hour follow-up abdominal radiography (at 13:30 on 08/27/2024). Chest X-Ray 09/04/24 14:50 IMPRESSION: Left upper extremity PICC line in good position and ready for immediate use. Abdomen X-Ray 09/05/24 06:44 Impression: 1: Moderately dilated small bowel with contrast throughout the colon. Differential diagnosis includes ileus and partial small bowel obstruction. Labs Labs: Laboratory Results - last 24 hr 09/04/24 09/04/24 09/05/24 05:49 16:45 01:59 WBC RBC Hgb Hct MCV MCH MCHC RDW Plt Count MPV Immature Gran % (Auto) Neut % (Auto) Lymph % (Auto) [place] % (Auto) Eos % (Auto) Baso % (Auto) Lymph # (Auto) [place] # (Auto) Eos # (Auto) Baso # (Auto) Abs Immat Gran (auto) Absolute Neuts (auto) Absolute Nucleated RBC Nucleated RBC % Sodium Potassium Chloride Carbon Dioxide Anion Gap BUN Creatinine Estim Creat Clear Calc Estimated GFR Glucose POC Capillary Glucose 111 H 92 Calcium Phosphorus Triglycerides 156 H 09/05/24 09/05/24 09/05/24 06:27 06:36 10:11 WBC 9.3 RBC 2.60 L Hgb 7.8 L Hct 24.3 L MCV 93.5 MCH 30.0 MCHC 32.1 RDW 17.6 H Plt Count 191 MPV 9.3 Immature Gran % (Auto) 0.6 H Neut % (Auto) 88.0 H Lymph % (Auto) 7.2 L [place] % (Auto) 4.1 Eos % (Auto) 0.0 Baso % (Auto) 0.1 L Lymph # (Auto) 0.67 L [place] # (Auto) 0.4 Eos # (Auto) 0.0 Baso # (Auto) 0.0 Abs Immat Gran (auto) 0.06 H Absolute Neuts (auto) 8.2 H Absolute Nucleated RBC 0.000 Nucleated RBC % 0.0 Sodium 131 L Potassium 3.3 L Chloride 98 Carbon Dioxide 29 Anion Gap 4 BUN 33 H Creatinine 0.47 L Estim Creat Clear Calc 90 Estimated GFR > 60 Glucose 90 POC Capillary Glucose 99 Calcium 8.4 Phosphorus 2.9 Triglycerides 09/05/24 11:38 WBC RBC Hgb Hct MCV MCH MCHC RDW Plt Count MPV Immature Gran % (Auto) Neut % (Auto) Lymph % (Auto) [place] % (Auto) Eos % (Auto) Baso % (Auto) Lymph # (Auto) [place] # (Auto) Eos # (Auto) Baso # (Auto) Abs Immat Gran (auto) Absolute Neuts (auto) Absolute Nucleated RBC Nucleated RBC % Sodium Potassium Chloride Carbon Dioxide Anion Gap BUN Creatinine Estim Creat Clear Calc Estimated GFR Glucose POC Capillary Glucose 85 Calcium Phosphorus Triglycerides Quality VTE Prophylaxis VTE prophylaxis: pharmacologic ordered
[2024-09-05 14:00] VITALS: BP 106/67; PULSE 118; RESP 20; TEMP 36.8; O2SAT 93
[2024-09-05] MEDS: FAT EMULSIONS IV 20% 250 ML 20.8 ML IVPB (14:26)
--- NOTE | 2024-09-05 16:29 | PC.NURSE ---
This nurse has talked to Chica Porter with general surgery about PPN/TPN orders multiple times today 09/05/24. Originally, this nurse had been told by the burial vault maker to run PPN at 40 mL/hr (rate ordered as 80 mL/hr) through the PICC line as patient does not have a peripheral line. Later in the day after talking to the burial vault maker assigned to patient's case, Megan, PPN is ok to be ran at 80 mL/hr through PICC line until current bag is complete and then switch to TPN at 40 mL/hr. This nurse contacted Chica Porter to get orders for the TPN later tonight, however Chica Bianchi wanted this nurse to reach out to burial vault maker again to see if PPN/TPN even needs to be continued since patient is currently on a clear liquid diet. Per burial vault maker Iraida, TPN/PPN should be continued through the day and night due to patient's intolerance towards food at beginning of admission and then the need re-evaluated tomorrow. This nurse attempted to call Chica Bianchi back to inform of need for a TPN order, but was only able to reach Yasmine Sanz. This nurse relayed the information to Yasmine who said she would pass the information to Chica Bianchi. As of this time, only PPN is ordered for tonight and the order is not switched to TPN.
[2024-09-05] MEDS: AMINO ACIDS 4.25%/D5W/LYTES/CA 1,000 ML 80 ML IV CONT (21:09)
[2024-09-05 21:56] VITALS: BP 146/99; PULSE 105; RESP 24; TEMP 36.7; O2SAT 94
[2024-09-06 06:00] VITALS: BP 114/75; PULSE 102; RESP 16; TEMP 36.7; O2SAT 96
[2024-09-06] MEDS: CENTRAL LINE FLUSH 10 ML IV PUSH ×3 (06:37→22:01)
[2024-09-06 06:57] LABS: Anion Gap 3 mmol/L (4-12); Blood Urea Nitrogen 25 mg/dL (9-20); Calcium 7.9 mg/dL (8.4-10.2); Carbon Dioxide 26 mmol/L (22-30); Chloride 98 mmol/L (98-107); Estimated CRCL calculation 101 ml/min; Estimated Glomerular Filt Rate > 60; Glucose 97 mg/dL (65-110); Potassium 3.3 mmol/L (3.4-5.0); Sodium 127 mmol/L (137-145)
[2024-09-06] MEDS: PANTOPRAZOLE SODIUM IV 40 MG VIAL IV PUSH ×2 (07:43→21:59)
[2024-09-06] MEDS: ENOXAPARIN 40 MG/0.4 ML SYRINGE SUB-Q (07:43)
[2024-09-06] MEDS: AMINO ACIDS 4.25%/D5W/LYTES/CA 1,000 ML 80 ML IV CONT ×2 (09:05→22:00)
[2024-09-06] MEDS: KCL 40 MEQ/WATER 100 ML 100 ML 25 ML IVPB (09:05)
--- NOTE | 2024-09-06 11:30 | P.PNIM_ITS ---
Progress Note: A&P Assessment and Plan (1) Small bowel obstruction: Code(s): K56.609 - Unspecified intestinal obstruction, unspecified as to partial versus complete obstruction Status: Acute Plan SBO CT AP showed SBO NPO, NG tube with intermittent suction , continue PPN Gastrografin small bowel through showed High grade partial vs Complete SBO Gen surgery following Status post insertion of percutaneous endoscopic gastrostomy (PEG) tube: Code(s): Z93.1 - Gastrostomy status Status: Acute Assessment and Plan: On 08/25/2024 by GI G-tube placed for severe malnutrition. not tolerating tube feeds Tube feeding * Not currently receiving TF secondary to SBO. * PPN transitioning to TPN today * Severe protein/calorie deficit Hypokalemia: Code(s): E87.6 - Hypokalemia Status: Resolved Assessment and Plan: Hyponatremia: Code(s): E87.1 - Hypo-osmolality and hyponatremia Status: Acute Assessment and Plan: NA 129 IVF and monitor Improving with TPN. Today's Sodium is 131. Continue current replacement with PPN/TPN. * Hypocalcemia: Code(s): E83.51 - Hypocalcemia Status: Acute Assessment and Plan: tums * Calcium level increased to 8.4. * * Hypotension: Code(s): I95.9 - Hypotension, unspecified Status: Acute Assessment and Plan: Likely due to dehydration and electrolyte imbalance Replete calcium stable * Stable VS over last 24 hours 100-113/60s-80s Protein-calorie malnutrition, severe: Code(s): E43 - Unspecified severe protein-calorie malnutrition Status: Acute Assessment and Plan: NPO until SBO resolves Continue Megasetrol Continue home Reglan and Carafate Continue PPN PT and OT PICC line now placed, start TPN. retirement (current) use of anticoagulants: Code(s): Z79.01 - retirement (current) use of anticoagulants Status: Acute Assessment and Plan: History of DVT and PE Does not appear to be on current anticoagulation * Continue Lovenox * Adenocarcinoma of cecum: Onset Date: ~01/2023 Code(s): C18.0 - Malignant neoplasm of cecum Status: Chronic Assessment and Plan: Ct on 07/31/24 Findings within the chest, abdomen and pelvis which demonstrate a positive response to treatment See plan above Nausea and vomiting in adult: Code(s): R11.2 - Nausea with vomiting, unspecified Status: Acute Assessment and Plan: Subjective Date/time seen: 09/06/24 11:30 Interval history: I saw exam patient, patient feels comfortable, still feeling nauseous, denies vomiting abdomen pain Exam Narrative: General: Chronically ill, no acute distress, cachectic HEENT: normocephalic, atraumatic. Mucous membranes moist. No JVD or LN. Respiratory: clear to auscultation bilaterally. No rales/rhonic/wheezes. Cardiovascular: RRR, S1 and S2 present. NO S3, S4, m,r,g,h Abdomen: Soft, round, no pulsatile masses, nondistended and nontender. No rebound, no guarding. No CVA tenderness, no hepatosplenomegaly. Bowel sounds diminished throughout. G-tube in place Extremities: No cyanosis, clubbing, or edema present. Pulses are palpable 2/2. Active ROM to all four extremities. Neuro: A&Ox4, non-focal exam, generalized weakness present. Skin: Warm, dry, and intact, without rash, erythema, or lesion. Skin appears pale in color. Psych: pleasant, cooperative, normal speech, normal affect, no hallucinations, no dysarthia Objective Data Vital Signs Vital Signs: Vital Signs - 24 hr 09/05/24 14:00 09/05/24 21:56 09/06/24 06:00 Temperature 98.3 F 98.0 F 98.0 F Pulse Rate 118 H 105 H 102 H Respiratory Rate 20 24 H 16 Blood Pressure 106/67 146/99 H 114/75 Pulse Oximetry 93 94 96 Oxygen Delivery 09/06/24 08:00 Temperature Pulse Rate Respiratory Rate Blood Pressure Pulse Oximetry Oxygen Delivery Room Air Intake/Output Intake/Output: Intake & Output 09/03/24 09/04/24 09/05/24 09/06/24 23:59 23:59 23:59 23:59 Intake Total 3591.3 2250 1961.9 1254.7 Output Total 1670 3150 750 315 Balance 1921.3 -900 1211.9 939.7 Meds/Results Medications: Active Medications Generic Name Dose Route Start Last Admin Trade Name Freq PRN Reason Stop Dose Admin Acetaminophen 650 mg 08/25/24 14:38 Acetaminophen 325 Mg Tablet PO Q4H PRN Mild Pain (1-3) or Fever Calcium Carbonate 200 mg 08/28/24 17:00 09/06/24 07:44 Calcium Carbonate (Tums) 500 Mg (200 Mg Elemental) FEED TUBE Not Given BID KULDIP Dextrose 12.5 gm 08/30/24 07:17 08/30/24 07:45 Dextrose 50% 25 Gm/50 Ml Syringe IV PUSH 12.5 gm PRN PRN Administration Hypoglycemia Protocol Docusate Sodium 100 mg 08/25/24 17:00 09/06/24 07:43 Docusate Sodium 100 Mg Capsule PO Not Given BID KULDIP Enoxaparin Sodium 40 mg 08/28/24 09:00 09/06/24 07:43 Enoxaparin 40 Mg/0.4 Ml Syringe SUB-Q 40 mg QAM KULDIP Administration Glucagon 1 mg 08/30/24 07:17 Glucagon For Inj 1 Mg Vial IM PRN PRN Hypoglycemia Protocol Glucose 15 gm 08/30/24 07:17 Glucose Oral Gel 15 Gm Of Glucse In 37.5 Gm Tube PO PRN PRN Hypoglycemia Protocol Dextrose 1,000 mls @ 100 mls/hr 08/30/24 07:17 Dextrose 5% 1,000 Ml IVPB PRN PRN Hypoglycemia Protocol Dextrose 1,000 mls @ 50 mls/hr 08/30/24 14:11 Dextrose 10% IV CONT .Q20H PRN if PN is interrupted Fat Emulsion Intravenous 250 mls @ 20.833 mls/hr 08/30/24 15:00 09/05/24 14: 26 Lipids 20% IVPB 20.8 mls/hr Q24H KULDIP Administration Amino Acids/Electrolytes/Dextrose 1,000 mls @ 80 mls/hr 08/30/24 15:00 09/06/24 09:05 Clinimix E 4.25%/5% Solution IV CONT 80 mls/hr .[id number] KULDIP Administration Protocol Potassium Chloride 100 mls @ 25 mls/hr 09/06/24 08:45 09/06/24 09:05 Kcl 40 Meq/Water 100 Ml IVPB 09/06/24 12:44 25 mls/hr ONCE ONE Administration Insulin Human Regular 2 - 5 units 08/30/24 18:00 09/06/24 07:44 Insulin Human Regular (*Bkc) 100 Units/Ml SUB-Q Not Given Q6HR [facility] Protocol Megestrol Acetate 400 mg 08/25/24 17:00 09/06/24 07:43 Megestrol Acetate (*Chemo) Oral Susp 40 Mg/Ml Syr PO Not Given BID KULDIP Morphine Sulfate 2 mg 09/05/24 10:21 Morphine Sulfate (*Crx) 2 Mg/Ml Inj IV PUSH Q4H PRN Pain Rated 7-10 Ondansetron HCl 4 mg 08/31/24 12:25 09/04/24 07:59 Ondansetron Inj 4 Mg/2 Ml Vial IV PUSH 4 mg Q4H PRN Administration Nausea And Vomiting Pantoprazole Sodium 40 mg 09/01/24 21:00 09/06/24 07:43 Pantoprazole Sodium Iv 40 Mg Vial IV PUSH 40 mg Q12HR KULDIP Administration Sodium Chloride 10 ml 09/04/24 14:00 09/06/24 06:37 Central Line Flush IV PUSH 10 ml Q8HR KULDIP Administration Sodium Chloride 10 ml 09/04/24 14:16 Central Line Flush IV PUSH PRN PRN with TPN bag changes Sodium Chloride 20 ml 09/04/24 14:16 Central Line Flush IV PUSH PRN PRN after blood draws Radiology Results: ITS Impressions Chest/Abdomen/Pelvis CT 08/31/24 13:07 IMPRESSION: 1. Findings compatible with small bowel obstruction, as detailed above. 2. Pneumoperitoneum. This can be related to G-tube placement if the procedure was performed recently. Correlate clinically and with physical examination to rule out pneumoperitoneum secondary to perforated viscus. 3. Findings concerning for pneumonia, as detailed above. Small Bowel X-Ray 09/03/24 22:06 IMPRESSION: Marked diffuse small bowel dilation. Contrast proceeded through small bowel in an antegrade fashion but did not appear to reach the large bowel by the 4 hour images. This may represent high-grade partial or complete obstruction. NG tube side port terminates at the GE junction, consider advancing. Recommend 24 hour follow-up abdominal radiography (at 13:30 on 08/27/2024). Chest X-Ray 09/04/24 14:50 IMPRESSION: Left upper extremity PICC line in good position and ready for immediate use. Abdomen X-Ray 09/05/24 06:44 Impression: 1: Moderately dilated small bowel with contrast throughout the colon. Differential diagnosis includes ileus and partial small bowel obstruction. Labs Labs: Laboratory Results - last 24 hr 09/05/24 09/05/24 09/05/24 11:38 17:54 19:47 Sodium Potassium Chloride Carbon Dioxide Anion Gap BUN Creatinine Estim Creat Clear Calc Estimated GFR Glucose POC Capillary Glucose 85 88 95 Calcium Phosphorus 09/06/24 09/06/24 09/06/24 00:13 06:10 06:39 Sodium 127 L Potassium 3.3 L Chloride 98 Carbon Dioxide 26 Anion Gap 3 L BUN 25 H Creatinine 0.41 L Estim Creat Clear Calc 101 Estimated GFR > 60 Glucose 97 POC Capillary Glucose 78 101 Calcium 7.9 L Phosphorus 3.1
--- NOTE | 2024-09-06 11:35 | PCOTNOTE ---
Patient refused, states does not feel well, needs to sleep, had a bad night. Patient educated on the importance of movement and strengthening, declines.
--- NOTE | 2024-09-06 13:15 | P.PNGS_ITS ---
Progress Note: A&P Assessment and Plan (1) Small bowel obstruction: Code(s): K56.609 - Unspecified intestinal obstruction, unspecified as to partial versus complete obstruction Status: Acute Assessment and Plan: * Patient tolerated clamping trial and clear liquids without any difficulty yesterday. OK to remove NG and advance to full liquids. * (2) Protein-calorie malnutrition, severe: Code(s): E43 - Unspecified severe protein-calorie malnutrition Status: Acute Assessment and Plan: * Patient has PICC line. Continue TPN for today. * Albumin 2.4. Patient is a poor surgical candidate. (3) Status post insertion of percutaneous endoscopic gastrostomy (PEG) tube: Code(s): Z93.1 - Gastrostomy status Status: Acute Plan Discussed patient's case and plan of care with Dr. Marte. Subjective Subjective Date/Time Seen: 09/06/24 13:15 Interval history: Patient is feeling ok today. No nausea or vomiting. Tolerating clear liquids. Clamping trial with no issues. Last BM two days ago. Exam Const: General: comfortable and no acute distress GI: Inspection: non-distended GI Palp: Yes Soft to palpation and No Tenderness to palpation present (GI) Auscultation: normal bowel sounds and abnormal bowel sounds (hypoactive) Other: Patient severely cachectic. G-tube dressing clean and dry. G-tube clamped. Objective Data Vital Signs Vital Signs: Vital Signs - 24 hr 09/05/24 14:00 09/05/24 21:56 09/06/24 06:00 Temperature 98.3 F 98.0 F 98.0 F Pulse Rate 118 H 105 H 102 H Respiratory Rate 20 24 H 16 Blood Pressure 106/67 146/99 H 114/75 Pulse Oximetry 93 94 96 Oxygen Delivery 09/06/24 08:00 Temperature Pulse Rate Respiratory Rate Blood Pressure Pulse Oximetry Oxygen Delivery Room Air Intake/Output Intake/Output: Intake & Output 09/03/24 09/04/24 09/05/24 09/06/24 23:59 23:59 23:59 23:59 Intake Total 3591.3 2250 1961.9 1254.7 Output Total 1670 3150 750 315 Balance 1921.3 -900 1211.9 939.7 Meds/Results Medications: Active Medications Generic Name Dose Route Start Last Admin Trade Name Freq PRN Reason Stop Dose Admin Acetaminophen 650 mg 08/25/24 14:38 Acetaminophen 325 Mg Tablet PO Q4H PRN Mild Pain (1-3) or Fever Calcium Carbonate 200 mg 08/28/24 17:00 09/06/24 07:44 Calcium Carbonate (Tums) 500 Mg (200 Mg Elemental) FEED TUBE Not Given BID KULDIP Dextrose 12.5 gm 08/30/24 07:17 08/30/24 07:45 Dextrose 50% 25 Gm/50 Ml Syringe IV PUSH 12.5 gm PRN PRN Administration Hypoglycemia Protocol Docusate Sodium 100 mg 08/25/24 17:00 09/06/24 07:43 Docusate Sodium 100 Mg Capsule PO Not Given BID KULDIP Enoxaparin Sodium 40 mg 08/28/24 09:00 09/06/24 07:43 Enoxaparin 40 Mg/0.4 Ml Syringe SUB-Q 40 mg QAM KULDIP Administration Glucagon 1 mg 08/30/24 07:17 Glucagon For Inj 1 Mg Vial IM PRN PRN Hypoglycemia Protocol Glucose 15 gm 08/30/24 07:17 Glucose Oral Gel 15 Gm Of Glucse In 37.5 Gm Tube PO PRN PRN Hypoglycemia Protocol Dextrose 1,000 mls @ 100 mls/hr 08/30/24 07:17 Dextrose 5% 1,000 Ml IVPB PRN PRN Hypoglycemia Protocol Dextrose 1,000 mls @ 50 mls/hr 08/30/24 14:11 Dextrose 10% IV CONT .Q20H PRN if PN is interrupted Fat Emulsion Intravenous 250 mls @ 20.833 mls/hr 08/30/24 15:00 09/05/24 14:26 Lipids 20% IVPB 20.8 mls/hr Q24H KULDIP Administration Amino Acids/Electrolytes/Dextrose 1,000 mls @ 80 mls/hr 08/30/24 15:00 09/06/24 09:05 Clinimix E 4.25%/5% Solution IV CONT 80 mls/hr .[id number] KULDIP Administration Protocol Insulin Human Regular 2 - 5 units 08/30/24 18:00 09/06/24 07:44 Insulin Human Regular (*Bkc) 100 Units/Ml SUB-Q Not Given Q6HR [facility] Protocol Megestrol Acetate 400 mg 08/25/24 17:00 09/06/24 07:43 Megestrol Acetate (*Chemo) Oral Susp 40 Mg/Ml Syr PO Not Given BID KULDIP Morphine Sulfate 2 mg 09/05/24 10:21 Morphine Sulfate (*Crx) 2 Mg/Ml Inj IV PUSH Q4H PRN Pain Rated 7-10 Ondansetron HCl 4 mg 08/31/24 12:25 09/04/24 07:59 Ondansetron Inj 4 Mg/2 Ml Vial IV PUSH 4 mg Q4H PRN Administration Nausea And Vomiting Pantoprazole Sodium 40 mg 09/01/24 21:00 09/06/24 07:43 Pantoprazole Sodium Iv 40 Mg Vial IV PUSH 40 mg Q12HR KULDIP Administration Sodium Chloride 10 ml 09/04/24 14:00 09/06/24 06:37 Central Line Flush IV PUSH 10 ml Q8HR KULDIP Administration Sodium Chloride 10 ml 09/04/24 14:16 Central Line Flush IV PUSH PRN PRN with TPN bag changes Sodium Chloride 20 ml 09/04/24 14:16 Central Line Flush IV PUSH PRN PRN after blood draws Zolpidem Tartrate 5 mg 09/06/24 21:00 Zolpidem Tartrate (*Crx) 5 Mg Tablet PO HS KULDIP Radiology Results: ITS Impressions Chest/Abdomen/Pelvis CT 08/31/24 13:07 IMPRESSION: 1. Findings compatible with small bowel obstruction, as detailed above. 2. Pneumoperitoneum. This can be related to G-tube placement if the procedure was performed recently. Correlate clinically and with physical examination to rule out pneumoperitoneum secondary to perforated viscus. 3. Findings concerning for pneumonia, as detailed above. Small Bowel X-Ray 09/03/24 22:06 IMPRESSION: Marked diffuse small bowel dilation. Contrast proceeded through small bowel in an antegrade fashion but did not appear to reach the large bowel by the 4 hour images. This may represent high-grade partial or complete obstruction. NG tube side port terminates at the GE junction, consider advancing. Recommend 24 hour follow-up abdominal radiography (at 13:30 on 08/27/2024). Chest X-Ray 09/04/24 14:50 IMPRESSION: Left upper extremity PICC line in good position and ready for immediate use. Abdomen X-Ray 09/05/24 06:44 Impression: 1: Moderately dilated small bowel with contrast throughout the colon. Differential diagnosis includes ileus and partial small bowel obstruction. Labs Labs: Laboratory Results - last 24 hr 09/05/24 09/05/24 09/06/24 17:54 19:47 00:13 Sodium Potassium Chloride Carbon Dioxide Anion Gap BUN Creatinine Estim Creat Clear Calc Estimated GFR Glucose POC Capillary Glucose 88 95 78 Calcium Phosphorus 09/06/24 09/06/24 09/06/24 06:10 06:39 12:36 Sodium 127 L Potassium 3.3 L Chloride 98 Carbon Dioxide 26 Anion Gap 3 L BUN 25 H Creatinine 0.41 L Estim Creat Clear Calc 101 Estimated GFR > 60 Glucose 97 POC Capillary Glucose 101 95 Calcium 7.9 L Phosphorus 3.1
[2024-09-06 14:00] VITALS: BP 115/69; PULSE 95; RESP 16; TEMP 36.8; O2SAT 93
[2024-09-06] MEDS: FAT EMULSIONS IV 20% 250 ML 20.8 ML IVPB (14:38)
[2024-09-06 15:49] LABS: Triglycerides 121 mg/dL (<150)
[2024-09-06 22:00] VITALS: BP 116/76; PULSE 98; RESP 16; TEMP 36.8; O2SAT 93
[2024-09-07 06:00] VITALS: BP 123/79; PULSE 95; RESP 16; TEMP 36.1; O2SAT 97
[2024-09-07 06:40] LABS: Hematocrit 21.4 % (42.0-52.0); Hemoglobin 7.0 g/dL (14.0-18.0); Immature Granulocyte Percent A 0.6 % (0-0.5); Lymphocytes Absolute Auto 0.65 K/mm3 (0.9-3.2); Mean Corpuscular HGB Conc 32.7 g/dl (32-36); Mean Corpuscular Hemoglobin 30.8 pg (26-34); Mean Corpuscular Volume 94.3 fl (80-100); Nucleated Red Blood Cells Absolute Auto 0.000 K/mm3 (0.0-0.012); Nucleated Red Blood Cells Perc 0.0 % (0.0-0.2); Platelet Count Result 176 k/mm3 (150-375); Red Blood Count 2.27 M/mm3 (4.6-6.20); White Blood Count 5.3 K/mm3 (4.5-10.0)
[2024-09-07 07:10] LABS: Alanine Aminotransferase 25 U/L (6-50); Albumin Level 2.2 g/dL (3.5-5.1); Alkaline Phosphatase 61 U/L (38-126); Anion Gap 3 mmol/L (4-12); Aspartate Amino Transferase 27 U/L (17-59); Bilirubin,Total 0.6 mg/dL (0.2-1.3); Blood Urea Nitrogen 20 mg/dL (9-20); Calcium 7.9 mg/dL (8.4-10.2); Carbon Dioxide 26 mmol/L (22-30); Chloride 100 mmol/L (98-107); Estimated CRCL calculation 103 ml/min; Estimated Glomerular Filt Rate > 60; Glucose 94 mg/dL (65-110); Magnesium 1.9 mg/dL (1.6-2.3); Potassium 3.5 mmol/L (3.4-5.0); Sodium 129 mmol/L (137-145); Total Protein 4.4 g/dL (6.3-8.2)
[2024-09-07] MEDS: CENTRAL LINE FLUSH 10 ML IV PUSH ×3 (07:17→22:42)
[2024-09-07] MEDS: MEGESTROL ACETATE (*CHEMO) ORAL SUSP 40 MG/ML SYR 400 MG PO (09:20)
[2024-09-07] MEDS: CALCIUM CARBONATE (TUMS) 500 MG (200 MG ELEMENTAL) FEED TUBE (09:20)
[2024-09-07] MEDS: DOCUSATE SODIUM 100 MG CAPSULE PO (09:20)
[2024-09-07] MEDS: PANTOPRAZOLE SODIUM IV 40 MG VIAL IV PUSH ×2 (09:20→20:50)
[2024-09-07] MEDS: ENOXAPARIN 40 MG/0.4 ML SYRINGE SUB-Q (09:20)
[2024-09-07] MEDS: ONDANSETRON INJ 4 MG/2 ML VIAL IV PUSH (09:26)
--- NOTE | 2024-09-07 10:13 | PM.PNGS ---
Progress Note: A&P Assessment and Plan (1) Small bowel obstruction: Code(s): K56.609 - Unspecified intestinal obstruction, unspecified as to partial versus complete obstruction Status: Acute Assessment and Plan: Patient advanced to full liquids yesterday, but was not receiving anything other than clears. Full liquid diet ordered at the bedside today. Albumin still low. If he is able to tolerate full liquid diet today, we will consider stopping PPN. (2) Protein-calorie malnutrition, severe: Code(s): E43 - Unspecified severe protein-calorie malnutrition Status: Acute Assessment and Plan: Patient has PICC line. Continue PPN for today. Albumin 2.2. Patient is a poor surgical candidate. (3) Status post insertion of percutaneous endoscopic gastrostomy (PEG) tube: Code(s): Z93.1 - Gastrostomy status Status: Acute Plan Discussed patient's case and plan of care with Dr. Marte. Subjective Subjective Date/Time Seen: 09/07/24 10:13 Interval history: No acute events overnight. Vital signs stable. Patient expresses frustration with his diet, as he has not been given anything other than clear liquid diet even though orders are in for full liquids. Full liquid diet was ordered for breakfast this morning while at the bedside. Labs remained stable. Potassium 3.5. No nausea or vomiting. Bowel movement yesterday. Exam GI: Inspection: non-distended GI Palp: Yes Soft to palpation, No Tenderness to palpation present (GI), No Guarding due to palpation present (GI) and No Hernia present Other: Patient severely cachectic. G-tube dressing clean and dry. Objective Data Vital Signs Vital Signs: Vital Signs - 24 hr 09/06/24 14:00 09/06/24 22:00 09/07/24 06:00 Temperature 98.2 F 98.2 F 97.0 F L Pulse Rate 95 98 95 Respiratory Rate 16 16 16 Blood Pressure 115/69 116/76 123/79 Pulse Oximetry 93 93 97 Intake/Output Intake/Output: Intake & Output 09/04/24 09/05/24 09/06/24 09/07/24 23:59 23:59 23:59 23:59 Intake Total 2250 1961.9 3004.7 240 Output Total 3150 750 1265 300 Balance -900 1211.9 1739.7 -60 Meds/Results Medications: Active Medications Generic Name Dose Route Start Last Admin Trade Name Albertq PRN Reason Stop Dose Admin Acetaminophen 650 mg 08/25/24 14:38 Acetaminophen 325 Mg Tablet PO Q4H PRN Mild Pain (1-3) or Fever Calcium Carbonate 200 mg 08/28/24 17:00 09/07/24 09:20 Calcium Carbonate (Tums) 500 Mg (200 Mg Elemental) FEED TUBE 200 mg BID KULDIP Administration Dextrose 12.5 gm 08/30/24 07:17 08/30/24 07:45 Dextrose 50% 25 Gm/50 Ml Syringe IV PUSH 12.5 gm PRN PRN Administration Hypoglycemia Protocol Docusate Sodium 100 mg 08/25/24 17:00 09/07/24 09:20 Docusate Sodium 100 Mg Capsule PO 100 mg BID KULDIP Administration Enoxaparin Sodium 40 mg 08/28/24 09:00 09/07/24 09:20 Enoxaparin 40 Mg/0.4 Ml Syringe SUB-Q 40 mg QAM KULDIP Administration Glucagon 1 mg 08/30/24 07:17 Glucagon For Inj 1 Mg Vial IM PRN PRN Hypoglycemia Protocol Glucose 15 gm 08/30/24 07:17 Glucose Oral Gel 15 Gm Of Glucse In 37.5 Gm Tube PO PRN PRN Hypoglycemia Protocol Dextrose 1,000 mls @ 100 mls/hr 08/30/24 07:17 Dextrose 5% 1,000 Ml IVPB PRN PRN Hypoglycemia Protocol Dextrose 1,000 mls @ 50 mls/hr 08/30/24 14:11 Dextrose 10% IV CONT .Q20H PRN if PN is interrupted Fat Emulsion Intravenous 250 mls @ 20.833 mls/hr 08/30/24 15:00 09/06/24 14:38 Lipids 20% IVPB 20.8 mls/hr Q24H KULDIP Administration Amino Acids/Electrolytes/Dextrose 1,000 mls @ 80 mls/hr 08/30/24 15:00 09/06/24 22:00 Clinimix E 4.25%/5% Solution IV CONT 80 mls/hr .[id number] KULDIP Administration Protocol Insulin Human Regular 2 - 5 units 08/30/24 18:00 09/07/24 07:17 Insulin Human Regular (*Bkc) 100 Units/Ml SUB-Q Not Given Q6HR [facility] Protocol Megestrol Acetate 400 mg 08/25/24 17:00 09/07/24 09:20 Megestrol Acetate (*Chemo) Oral Susp 40 Mg/Ml Syr PO 400 mg BID KULDIP Administration Morphine Sulfate 2 mg 09/05/24 10:21 Morphine Sulfate (*Crx) 2 Mg/Ml Inj IV PUSH Q4H PRN Pain Rated 7-10 Ondansetron HCl 4 mg 08/31/24 12:25 09/07/24 09:26 Ondansetron Inj 4 Mg/2 Ml Vial IV PUSH 4 mg Q4H PRN Administration Nausea And Vomiting Pantoprazole Sodium 40 mg 09/01/24 21:00 09/07/24 09:20 Pantoprazole Sodium Iv 40 Mg Vial IV PUSH 40 mg Q12HR KULDIP Administration Sodium Chloride 10 ml 09/04/24 14:00 09/07/24 07:17 Central Line Flush IV PUSH 10 ml Q8HR KULDIP Administration Sodium Chloride 10 ml 09/04/24 14:16 Central Line Flush IV PUSH PRN PRN with TPN bag changes Sodium Chloride 20 ml 09/04/24 14:16 Central Line Flush IV PUSH PRN PRN after blood draws Zolpidem Tartrate 5 mg 09/06/24 21:00 09/07/24 01:12 Zolpidem Tartrate (*Crx) 5 Mg Tablet PO Not Given HS KULDIP Radiology Results: ITS Impressions Chest/Abdomen/Pelvis CT 08/31/24 13:07 IMPRESSION: 1. Findings compatible with small bowel obstruction, as detailed above. 2. Pneumoperitoneum. This can be related to G-tube placement if the procedure was performed recently. Correlate clinically and with physical examination to rule out pneumoperitoneum secondary to perforated viscus. 3. Findings concerning for pneumonia, as detailed above. Small Bowel X-Ray 09/03/24 22:06 IMPRESSION: Marked diffuse small bowel dilation. Contrast proceeded through small bowel in an antegrade fashion but did not appear to reach the large bowel by the 4 hour images. This may represent high-grade partial or complete obstruction. NG tube side port terminates at the GE junction, consider advancing. Recommend 24 hour follow-up abdominal radiography (at 13:30 on 08/27/2024). Chest X-Ray 09/04/24 14:50 IMPRESSION: Left upper extremity PICC line in good position and ready for immediate use. Abdomen X-Ray 09/05/24 06:44 Impression: 1: Moderately dilated small bowel with contrast throughout the colon. Differential diagnosis includes ileus and partial small bowel obstruction. Labs Labs: Laboratory Results - last 24 hr 09/06/24 09/06/24 09/06/24 12:36 14:40 17:58 WBC RBC Hgb Hct MCV MCH MCHC RDW Plt Count MPV Immature Gran % (Auto) Neut % (Auto) Lymph % (Auto) Petroleum % (Auto) Eos % (Auto) Baso % (Auto) Lymph # (Auto) Petroleum # (Auto) Eos # (Auto) Baso # (Auto) Abs Immat Gran (auto) Absolute Neuts (auto) Absolute Nucleated RBC Nucleated RBC % Sodium Potassium Chloride Carbon Dioxide Anion Gap BUN Creatinine Estim Creat Clear Calc Estimated GFR Glucose POC Capillary Glucose 95 96 Calcium Phosphorus Magnesium Total Bilirubin AST ALT Alkaline Phosphatase Total Protein Albumin Triglycerides 121 09/07/24 09/07/24 09/07/24 00:04 06:31 07:01 WBC 5.3 RBC 2.27 L Hgb 7.0 L Hct 21.4 L MCV 94.3 MCH 30.8 MCHC 32.7 RDW 17.1 H Plt Count 176 MPV 8.8 Immature Gran % (Auto) 0.6 H Neut % (Auto) 82.7 H Lymph % (Auto) 12.2 L Petroleum % (Auto) 4.5 Eos % (Auto) 0.0 Baso % (Auto) 0.0 L Lymph # (Auto) 0.65 L Petroleum # (Auto) 0.2 Eos # (Auto) 0.0 Baso # (Auto) 0.0 Abs Immat Gran (auto) 0.03 Absolute Neuts (auto) 4.4 Absolute Nucleated RBC 0.000 Nucleated RBC % 0.0 Sodium 129 L Potassium 3.5 Chloride 100 Carbon Dioxide 26 Anion Gap 3 L BUN 20 Creatinine 0.40 L Estim Creat Clear Calc 103 Estimated GFR > 60 Glucose 94 POC Capillary Glucose 106 H 95 Calcium 7.9 L Phosphorus 2.8 Magnesium 1.9 Total Bilirubin 0.6 AST 27 ALT 25 Alkaline Phosphatase 61 Total Protein 4.4 L Albumin 2.2 L Triglycerides
[2024-09-07] MEDS: AMINO ACIDS 4.25%/D5W/LYTES/CA 1,000 ML 80 ML IV CONT (10:50)
--- NOTE | 2024-09-07 10:54 | P.PNIM_ITS ---
Progress Note: A&P Assessment and Plan (1) Small bowel obstruction: Code(s): K56.609 - Unspecified intestinal obstruction, unspecified as to partial versus complete obstruction Status: Acute Plan Severe anemia Suspecting acute blood loss anemia on on chronic anemia Hemoglobin 7.0 today, Baseline hemoglobin from 10-12 Follow stool guaiac, ferritin, iron panel SBO CT AP showed SBO NG tube was removed Gen surgery following Patient tolerated clear diet Status post insertion of percutaneous endoscopic gastrostomy (PEG) tube: Code(s): Z93.1 - Gastrostomy status Status: Acute Assessment and Plan: On 08/25/2024 by GI G-tube placed for severe malnutrition. not tolerating tube feeds Tube feeding transitioning to TPN during p.o. Hypokalemia: Code(s): E87.6 - Hypokalemia Status: Resolved Assessment and Plan: Hyponatremia: Code(s): E87.1 - Hypo-osmolality and hyponatremia Status: Acute Assessment and Plan: NA 129 IVF and monitor Improving with TPN. Today's Sodium is 131. Continue current replacement with PPN/TPN. * Hypocalcemia: Code(s): E83.51 - Hypocalcemia Status: Acute Assessment and Plan: Patient is on TPN Monitor calcium level Hypovolemic hypotension Code(s): I95.9 - Hypotension, unspecified Status: Acute Assessment and Plan: Likely due to dehydration and electrolyte imbalance Replete calcium stable Received fluid resuscitation Patient is on TPN now Protein-calorie malnutrition, severe: Code(s): E43 - Unspecified severe protein-calorie malnutrition Status: Acute Assessment and Plan: NPO until SBO resolves Continue Megasetrol Continue home Reglan and Carafate Continue PPN PT and OT PICC line now placed, start TPN. residential (current) use of anticoagulants: Code(s): Z79.01 - terminal press operator (current) use of anticoagulants Status: Acute Assessment and Plan: History of DVT and PE Does not appear to be on current anticoagulation * Continue Lovenox * Adenocarcinoma of cecum: Onset Date: ~01/2023 Code(s): C18.0 - Malignant neoplasm of cecum Status: Chronic Assessment and Plan: Ct on 07/31/24 Findings within the chest, abdomen and pelvis which demonstrate a positive response to treatment See plan above Patient condition is poor, prognosis guarded Subjective Date/time seen: 09/07/24 10:54 Interval history: I saw exam patient, patient feels comfortable, patient has a general weakness, tolerate clear diet Exam Narrative: GENERAL: in no acute distress. Severe malnutrition - EYES: EOMI. Anicteric. - HENT: Moist mucous membranes. - LUNGS: Clear to auscultation bilateral ly, no wheezing, rhonchi, or rales. - CARDIOVASCULAR: Regular rate and rhyth m. No murmur. No JVD. - ABDOMEN: Soft, non-tender and non-dist ended. No palpable masses. - EXTREMITIES: No edema. Peripheral puls es 2+. Non-tender. - NEUROLOGIC: No focal neurological defi cits. CN II-XII grossly intact. - PSYCHIATRIC: Awake, Alert and oriented x 3. Appropriate mood and affect. - SKIN: No rashes or lesions. Warm. - LYMPH: No cervical lymphadenopathy. h ia Objective Data Vital Signs Vital Signs: Vital Signs - 24 hr 09/06/24 14:00 09/06/24 22:00 09/07/24 06:00 Temperature 98.2 F 98.2 F 97.0 F L Pulse Rate 95 98 95 Respiratory Rate 16 16 16 Blood Pressure 115/69 116/76 123/79 Pulse Oximetry 93 93 97 Oxygen Delivery 09/07/24 08:00 Temperature Pulse Rate Respiratory Rate Blood Pressure Pulse Oximetry Oxygen Delivery Room Air Intake/Output Intake/Output: Intake & Output 09/04/24 09/05/24 09/06/24 09/07/24 23:59 23:59 23:59 23:59 Intake Total 2250 1961.9 3004.7 240 Output Total 3150 750 1265 300 Balance -900 1211.9 1739.7 -60 Meds/Results Medications: Active Medications Generic Name Dose Route Start Last Admin Trade Name Freq PRN Reason Stop Dose Admin Acetaminophen 650 mg 08/25/24 14:38 Acetaminophen 325 Mg Tablet PO Q4H PRN Mild Pain (1-3) or Fever Calcium Carbonate 200 mg 08/28/24 17:00 09/07/24 09:20 Calcium Carbonate (Tums) 500 Mg (200 Mg Elemental) FEED TUBE 200 mg BID [facility] Administration Dextrose 12.5 gm 08/30/24 07:17 08/30/24 07:45 Dextrose 50% 25 Gm/50 Ml Syringe IV PUSH 12.5 gm PRN PRN Administration Hypoglycemia Protocol Docusate Sodium 100 mg 08/25/24 17:00 09/07/24 09:20 Docusate Sodium 100 Mg Capsule PO 100 mg BID [facility] Administration Enoxaparin Sodium 40 mg 08/28/24 09:00 09/07/24 09:20 Enoxaparin 40 Mg/0.4 Ml Syringe SUB-Q 40 mg QAM [facility] Administration Glucagon 1 mg 08/30/24 07:17 Glucagon For Inj 1 Mg Vial IM PRN PRN Hypoglycemia Protocol Glucose 15 gm 08/30/24 07:17 Glucose Oral Gel 15 Gm Of Glucse In 37.5 Gm Tube PO PRN PRN Hypoglycemia Protocol Dextrose 1,000 mls @ 100 mls/hr 08/30/24 07:17 Dextrose 5% 1,000 Ml IVPB PRN PRN Hypoglycemia Protocol Dextrose 1,000 mls @ 50 mls/hr 08/30/24 14:11 Dextrose 10% IV CONT .Q20H PRN if PN is interrupted Fat Emulsion Intravenous 250 mls @ 20.833 mls/hr 08/30/24 15:00 09/06/24 14:38 Lipids 20% IVPB 20.8 mls/hr Q24H [facility] Administration Amino Acids/Electrolytes/Dextrose 1,000 mls @ 80 mls/hr 08/30/24 15:00 09/06/24 22:00 Clinimix E 4.25%/5% Solution IV CONT 80 mls/hr .[id number] [facility] Administration Protocol Insulin Human Regular 2 - 5 units 08/30/24 18:00 09/07/24 07:17 Insulin Human Regular (*Bkc) 100 Units/Ml SUB-Q Not Given Q6HR [facility] Protocol Megestrol Acetate 400 mg 08/25/24 17:00 09/07/24 09:20 Megestrol Acetate (*Chemo) Oral Susp 40 Mg/Ml Syr PO 400 mg BID [facility] Administration Morphine Sulfate 2 mg 09/05/24 10:21 Morphine Sulfate (*Crx) 2 Mg/Ml Inj IV PUSH Q4H PRN Pain Rated 7-10 Ondansetron HCl 4 mg 08/31/24 12:25 09/07/24 09:26 Ondansetron Inj 4 Mg/2 Ml Vial IV PUSH 4 mg Q4H PRN Administration Nausea And Vomiting Pantoprazole Sodium 40 mg 09/01/24 21:00 09/07/24 09:20 Pantoprazole Sodium Iv 40 Mg Vial IV PUSH 40 mg Q12HR [facility] Administration Sodium Chloride 10 ml 09/04/24 14:00 09/07/24 07:17 Central Line Flush IV PUSH 10 ml Q8HR [facility] Administration Sodium Chloride 10 ml 09/04/24 14:16 Central Line Flush IV PUSH PRN PRN with TPN bag changes Sodium Chloride 20 ml 09/04/24 14:16 Central Line Flush IV PUSH PRN PRN after blood draws Zolpidem Tartrate 5 mg 09/06/24 21:00 09/07/24 01:12 Zolpidem Tartrate (*Crx) 5 Mg Tablet PO Not Given HS [facility] Radiology Results: ITS Impressions Chest/Abdomen/Pelvis CT 08/31/24 13:07 IMPRESSION: 1. Findings compatible with small bowel obstruction, as detailed above. 2. Pneumoperitoneum. This can be related to G-tube placement if the procedure was performed recently. Correlate clinically and with physical examination to rule out pneumoperitoneum secondary to perforated viscus. 3. Findings concerning for pneumonia, as detailed above. Small Bowel X-Ray 09/03/24 22:06 IMPRESSION: Marked diffuse small bowel dilation. Contrast proceeded through small bowel in an antegrade fashion but did not appear to reach the large bowel by the 4 hour images. This may represent high-grade partial or complete obstruction. NG tube side port terminates at the GE junction, consider advancing. Recommend 24 hour follow-up abdominal radiography (at 13:30 on 08/27/2024). Chest X-Ray 09/04/24 14:50 IMPRESSION: Left upper extremity PICC line in good position and ready for immediate use. Abdomen X-Ray 09/05/24 06:44 Impression: 1: Moderately dilated small bowel with contrast throughout the colon. Differential diagnosis includes ileus and partial small bowel obstruction. Labs Labs: Laboratory Results - last 24 hr 09/06/24 09/06/24 09/06/24 12:36 14:40 17:58 WBC RBC Hgb Hct MCV MCH MCHC RDW Plt Count MPV Immature Gran % (Auto) Neut % (Auto) Lymph % (Auto) [place] % (Auto) Eos % (Auto) Baso % (Auto) Lymph # (Auto) [place] # (Auto) Eos # (Auto) Baso # (Auto) Abs Immat Gran (auto) Absolute Neuts (auto) Absolute Nucleated RBC Nucleated RBC % Sodium Potassium Chloride Carbon Dioxide Anion Gap BUN Creatinine Estim Creat Clear Calc Estimated GFR Glucose POC Capillary Glucose 95 96 Calcium Phosphorus Magnesium Total Bilirubin AST ALT Alkaline Phosphatase Total Protein Albumin Triglycerides 121 09/07/24 09/07/24 09/07/24 00:04 06:31 07:01 WBC 5.3 RBC 2.27 L Hgb 7.0 L Hct 21.4 L MCV 94.3 MCH 30.8 MCHC 32.7 RDW 17.1 H Plt Count 176 MPV 8.8 Immature Gran % (Auto) 0.6 H Neut % (Auto) 82.7 H Lymph % (Auto) 12.2 L [place] % (Auto) 4.5 Eos % (Auto) 0.0 Baso % (Auto) 0.0 L Lymph # (Auto) 0.65 L [place] # (Auto) 0.2 Eos # (Auto) 0.0 Baso # (Auto) 0.0 Abs Immat Gran (auto) 0.03 Absolute Neuts (auto) 4.4 Absolute Nucleated RBC 0.000 Nucleated RBC % 0.0 Sodium 129 L Potassium 3.5 Chloride 100 Carbon Dioxide 26 Anion Gap 3 L BUN 20 Creatinine 0.40 L Estim Creat Clear Calc 103 Estimated GFR > 60 Glucose 94 POC Capillary Glucose 106 H 95 Calcium 7.9 L Phosphorus 2.8 Magnesium 1.9 Total Bilirubin 0.6 AST 27 ALT 25 Alkaline Phosphatase 61 Total Protein 4.4 L Albumin 2.2 L Triglycerides
--- NOTE | 2024-09-07 11:45 | PCOTNOTE ---
Patient seems frustrated, refused to participate. Patient states he is to weak, so tired and done with all this . RN notified
[2024-09-07 12:16] LABS: Hematocrit 22.1 % (42.0-52.0); Hemoglobin 7.1 g/dL (14.0-18.0); Immature Reticulocyte Fraction 23.3 % (3.0-15.9); Reticulocyte Hemoglobin Conten 34.5 pg (28.2-36.6); Reticulocytes Absolute 0.05 10^6/uL (0.02-0.10)
[2024-09-07 12:27] LABS: Triglycerides 88 mg/dL (<150)
[2024-09-07 12:38] LABS: Iron 50 ug/dL (49-181)
[2024-09-07 12:52] LABS: Percent Iron Saturation 27 % (20-50)
[2024-09-07 13:19] LABS: Ferritin 187.00 ng/mL (11.1-264)
[2024-09-07 14:00] VITALS: BP 110/75; PULSE 108; RESP 18; TEMP 36.5; O2SAT 95
--- NOTE | 2024-09-07 14:02 | PCPTNOTE ---
Patient refused PT stating he is upset that he is not improving. Patient c/o feeling weak and tired. Encouraged patient to participate however patient continued to refuse PT.
[2024-09-07] MEDS: FAT EMULSIONS IV 20% 250 ML 20.8 ML IVPB (14:09)
[2024-09-07 20:10] VITALS: PULSE 104; RESP 18; O2SAT 96
[2024-09-07 20:10] LABS: Triglycerides 112 mg/dL (<150)
[2024-09-07] MEDS: MORPHINE SULFATE (*CRX) 2 MG/ML INJ IV PUSH (20:47)
[2024-09-07 21:06] VITALS: BP 126/72; PULSE 104; RESP 18; TEMP 37.1; O2SAT 96
[2024-09-08] MEDS: AMINO ACIDS 4.25%/D5W/LYTES/CA 1,000 ML 80 ML IV CONT ×2 (01:21→11:39)
[2024-09-08] MEDS: ONDANSETRON INJ 4 MG/2 ML VIAL IV PUSH ×4 (01:22→21:25)
[2024-09-08 06:00] VITALS: BP 121/68; PULSE 99; RESP 18; TEMP 37; O2SAT 94
[2024-09-08 06:03] LABS: Anion Gap 3 mmol/L (4-12); Blood Urea Nitrogen 20 mg/dL (9-20); Calcium 7.5 mg/dL (8.4-10.2); Carbon Dioxide 26 mmol/L (22-30); Chloride 94 mmol/L (98-107); Estimated CRCL calculation 101 ml/min; Estimated Glomerular Filt Rate > 60; Glucose 92 mg/dL (65-110); Potassium 3.4 mmol/L (3.4-5.0); Sodium 123 mmol/L (137-145); Triglycerides 95 mg/dL (<150)
[2024-09-08] MEDS: ENOXAPARIN 40 MG/0.4 ML SYRINGE SUB-Q (08:40)
[2024-09-08] MEDS: MEGESTROL ACETATE (*CHEMO) ORAL SUSP 40 MG/ML SYR 400 MG PO (08:40)
[2024-09-08] MEDS: PANTOPRAZOLE SODIUM IV 40 MG VIAL IV PUSH ×2 (08:40→21:25)
--- NOTE | 2024-09-08 09:38 | PM.PNGS ---
Progress Note: A&P Assessment and Plan (1) Small bowel obstruction: Code(s): K56.609 - Unspecified intestinal obstruction, unspecified as to partial versus complete obstruction Status: Acute Assessment and Plan: Patient advanced to full liquids yesterday, and tolerated well. Mentioned potentially stopping PPN in the future, and patient admitted that he did not feel as though he was getting adequate nutrition orally yet. Albumin yesterday 2.2. Will advance to regular diet and consider stopping PPN this weekend if tolerated well. Small bowel obstruction likely resolved, however, patient is severely cachectic and malnourished. (2) Protein-calorie malnutrition, severe: Code(s): E43 - Unspecified severe protein-calorie malnutrition Status: Acute Assessment and Plan: Patient has PICC line. Continue PPN for today. Albumin 2.2. Patient is a poor surgical candidate. (3) Status post insertion of percutaneous endoscopic gastrostomy (PEG) tube: Code(s): Z93.1 - Gastrostomy status Status: Acute Plan Discussed patient's case and plan of care with Dr. Marte. Subjective Subjective Date/Time Seen: 09/08/24 09:38 Interval history: Patient is doing generally well today. He notes that he did have some nausea and vomiting last night, but he believes that this was due to the morphine he received for his back pain. He states that he had a similar reaction to morphine when he was going through chemotherapy. He does not believe that the nausea was caused by anything he ate. VSS. Afebrile. Last BM was yesterday. Patient continues to spit up mucous. Exam Const: General: comfortable and no acute distress GI: Inspection: non-distended Auscultation: normal bowel sounds and abnormal bowel sounds (hypoactive) Other: Patient severely cachectic. G-tube dressing clean and dry. Objective Data Vital Signs Vital Signs: Vital Signs - 24 hr 09/07/24 14:00 09/07/24 20:10 09/07/24 21:06 Temperature 97.7 F 98.8 F Pulse Rate 108 H 104 H 104 H Respiratory Rate 18 18 18 Blood Pressure 110/75 126/72 Pulse Oximetry 95 96 96 Oxygen Delivery Room Air 09/08/24 06:00 Temperature 98.6 F Pulse Rate 99 Respiratory Rate 18 Blood Pressure 121/68 Pulse Oximetry 94 Oxygen Delivery Intake/Output Intake/Output: Intake & Output 09/05/24 09/06/24 09/07/24 09/08/24 23:59 23:59 23:59 23:59 Intake Total 1961.9 3004.7 2712 Output Total 750 1265 700 400 Balance 1211.9 1739.7 2011 Meds/Results Medications: Active Medications Generic Name Dose Route Start Last Admin Trade Name Freq PRN Reason Stop Dose Admin Acetaminophen 650 mg 08/25/24 14:38 Acetaminophen 325 Mg Tablet PO Q4H PRN Mild Pain (1-3) or Fever Calcium Carbonate 200 mg 08/28/24 17:00 09/08/24 08:40 Calcium Carbonate (Tums) 500 Mg (200 Mg Elemental) FEED TUBE Not Given BID KULDIP Dextrose 12.5 gm 08/30/24 07:17 08/30/24 07:45 Dextrose 50% 25 Gm/50 Ml Syringe IV PUSH 12.5 gm PRN PRN Administration Hypoglycemia Protocol Docusate Sodium 100 mg 08/25/24 17:00 09/08/24 08:40 Docusate Sodium 100 Mg Capsule PO Not Given BID KULDIP Enoxaparin Sodium 40 mg 08/28/24 09:00 09/08/24 08:40 Enoxaparin 40 Mg/0.4 Ml Syringe SUB-Q 40 mg QAM KUL[facility]IP Administration Glucagon 1 mg 08/30/24 07:17 Glucagon For Inj 1 Mg Vial IM PRN PRN Hypoglycemia Protocol Glucose 15 gm 08/30/24 07:17 Glucose Oral Gel 15 Gm Of Glucse In 37.5 Gm Tube PO PRN PRN Hypoglycemia Protocol Dextrose 1,000 mls @ 100 mls/hr 08/30/24 07:17 Dextrose 5% 1,000 Ml IVPB PRN PRN Hypoglycemia Protocol Dextrose 1,000 mls @ 50 mls/hr 08/30/24 14:11 Dextrose 10% IV CONT .Q20H PRN if PN is interrupted Fat Emulsion Intravenous 250 mls @ 20.833 mls/hr 08/30/24 15:00 09/07/24 14:09 Lipids 20% IVPB 20.8 mls/hr Q24H [facility] Administration Amino Acids/Electrolytes/Dextrose 1,000 mls @ 80 mls/hr 08/30/24 15:00 09/08/24 01:21 Clinimix E 4.25%/5% Solution IV CONT 80 mls/hr .[id number] [facility] Administration Protocol Insulin Human Regular 2 - 5 units 08/30/24 18:00 09/08/24 08:37 Insulin Human Regular (*Bkc) 100 Units/Ml SUB-Q Not Given Q6HR [facility] Protocol Megestrol Acetate 400 mg 08/25/24 17:00 09/08/24 08:40 Megestrol Acetate (*Chemo) Oral Susp 40 Mg/Ml Syr PO 400 mg BID [facility] Administration Morphine Sulfate 2 mg 09/05/24 10:21 09/07/24 20:47 Morphine Sulfate (*Crx) 2 Mg/Ml Inj IV PUSH 2 mg Q4H PRN Administration Pain Rated 7-10 Ondansetron HCl 4 mg 08/31/24 12:25 09/08/24 05:40 Ondansetron Inj 4 Mg/2 Ml Vial IV PUSH 4 mg Q4H PRN Administration Nausea And Vomiting Pantoprazole Sodium 40 mg 09/01/24 21:00 09/08/24 08:40 Pantoprazole Sodium Iv 40 Mg Vial IV PUSH 40 mg Q12HR [facility] Administration Sodium Chloride 10 ml 09/04/24 14:00 09/08/24 08:38 Central Line Flush IV PUSH Not Given Q8HR [facility] Sodium Chloride 10 ml 09/04/24 14:16 Central Line Flush IV PUSH PRN PRN with TPN bag changes Sodium Chloride 20 ml 09/04/24 14:16 Central Line Flush IV PUSH PRN PRN after blood draws Zolpidem Tartrate 5 mg 09/06/24 21:00 09/07/24 22:38 Zolpidem Tartrate (*Crx) 5 Mg Tablet PO Not Given HS [facility] Radiology Results: ITS Impressions Chest/Abdomen/Pelvis CT 08/31/24 13:07 IMPRESSION: 1. Findings compatible with small bowel obstruction, as detailed above. 2. Pneumoperitoneum. This can be related to G-tube placement if the procedure was performed recently. Correlate clinically and with physical examination to rule out pneumoperitoneum secondary to perforated viscus. 3. Findings concerning for pneumonia, as detailed above. Small Bowel X-Ray 09/03/24 22:06 IMPRESSION: Marked diffuse small bowel dilation. Contrast proceeded through small bowel in an antegrade fashion but did not appear to reach the large bowel by the 4 hour images. This may represent high-grade partial or complete obstruction. NG tube side port terminates at the GE junction, consider advancing. Recommend 24 hour follow-up abdominal radiography (at 13:30 on 08/27/2024). Chest X-Ray 09/04/24 14:50 IMPRESSION: Left upper extremity PICC line in good position and ready for immediate use. Abdomen X-Ray 09/05/24 06:44 Impression: 1: Moderately dilated small bowel with contrast throughout the colon. Differential diagnosis includes ileus and partial small bowel obstruction. Labs Labs: Laboratory Results - last 24 hr 09/07/24 09/07/24 09/07/24 06:31 11:18 12:00 Hgb 7.1 L Hct 22.1 L Absolute Retic 0.05 Percent Retic 2.27 Immature Retic Fraction 23.3 H Retic Hgb Content 34.5 Sodium Potassium Chloride Carbon Dioxide Anion Gap BUN Creatinine Estim Creat Clear Calc Estimated GFR Glucose POC Capillary Glucose 82 Calcium Iron 50 TIBC 182 L % Saturation 27 Ferritin 187.00 Triglycerides 88 112 09/07/24 09/08/24 09/08/24 18:28 00:46 05:36 Hgb Hct Absolute Retic Percent Retic Immature Retic Fraction Retic Hgb Content Sodium 123 L Potassium 3.4 Chloride 94 L Carbon Dioxide 26 Anion Gap 3 L BUN 20 Creatinine 0.41 L Estim Creat Clear Calc 101 Estimated GFR > 60 Glucose 92 POC Capillary Glucose 89 109 H Calcium 7.5 L Iron TIBC % Saturation Ferritin Triglycerides 95 09/08/24 09/08/24 05:36 06:06 Hgb Hct Absolute Retic Percent Retic Immature Retic Fraction Retic Hgb Content Sodium Potassium Chloride Carbon Dioxide Anion Gap BUN Creatinine Estim Creat Clear Calc Estimated GFR Glucose POC Capillary Glucose 101 Calcium Iron TIBC % Saturation Ferritin Triglycerides Cancelled
--- NOTE | 2024-09-08 10:22 | P.PNIM_ITS ---
Progress Note: A&P Assessment and Plan (1) Small bowel obstruction: Code(s): K56.609 - Unspecified intestinal obstruction, unspecified as to partial versus complete obstruction Status: Acute Plan Severe anemia Suspecting acute blood loss anemia on on chronic anemia Hemoglobin 7.0 today, Baseline hemoglobin from 10-12 Follow stool guaiac, ferritin, iron panel back on the lower side Start Venofer [address] AP showed SBO NG tube was removed Gen surgery following Patient tolerated clear diet Start G tube feeding Status post insertion of percutaneous endoscopic gastrostomy (PEG) tube: Code(s): Z93.1 - Gastrostomy status Status: Acute Assessment and Plan: On 08/25/2024 by GI G-tube placed for severe malnutrition. restart Tube feeding if patient can tolerate Hypokalemia: Code(s): E87.6 - Hypokalemia Status: Resolved Assessment and Plan: Hyponatremia: Code(s): E87.1 - Hypo-osmolality and hyponatremia Status: Acute Assessment and Plan: Improving with TPN. Today's Sodium is 131. replacement with PPN/TPN. * Hypocalcemia: Code(s): E83.51 - Hypocalcemia Status: Acute Assessment and Plan: Patient is on TPN Monitor calcium level Hypovolemic hypotension Code(s): I95.9 - Hypotension, unspecified Status: Acute Assessment and Plan: Likely due to dehydration and electrolyte imbalance Replete calcium stable Received fluid resuscitation. 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 Patient has general weakness, denies focal weakness. Exam Narrative: GENERAL: in no acute distress. Severe malnutrition - EYES: EOMI. Anicteric. - HENT: Moist mucous membranes. - LUNGS: Clear to auscultation bilateral ly, no wheezing, rhonchi, or rales. - CARDIOVASCULAR: Regular rate and rhyth m. No murmur. No JVD. - ABDOMEN: Soft, non-tender and non-dist ended. No palpable masses. - EXTREMITIES: No edema. Peripheral puls es 2+. Non-tender. - NEUROLOGIC: No focal neurological defi cits. CN II-XII grossly intact. - PSYCHIATRIC: Awake, Alert and oriented x 3. Appropriate mood and affect. - SKIN: No rashes or lesions. Warm. - LYMPH: No cervical lymphadenopathy. h ia Objective Data Vital Signs Vital Signs: Vital Signs - 24 hr 09/07/24 14:00 09/07/24 20:10 09/07/24 21:06 Temperature 97.7 F 98.8 F Pulse Rate 108 H 104 H 104 H Respiratory Rate 18 18 18 Blood Pressure 110/75 126/72 Pulse Oximetry 95 96 96 Oxygen Delivery Room Air 09/08/24 06:00 Temperature 98.6 F Pulse Rate 99 Respiratory Rate 18 Blood Pressure 121/68 Pulse Oximetry 94 Oxygen Delivery Intake/Output Intake/Output: Intake & Output 09/05/24 09/06/24 09/07/24 09/08/24 23:59 23:59 23:59 23:59 Intake Total 1961.9 3004.7 2712 120 Output Total 750 1265 700 400 Balance 1211.9 1739.7 2011 Meds/Results Medications: Active Medications Generic Name Dose Route Start Last Admin Trade Name Freq PRN Reason Stop Dose Admin Acetaminophen 650 mg 08/25/24 14:38 Acetaminophen 325 Mg Tablet PO Q4H PRN Mild Pain (1-3) or Fever Calcium Carbonate 200 mg 08/28/24 17:00 09/08/24 08:40 Calcium Carbonate (Tums) 500 Mg (200 Mg Elemental) FEED TUBE Not Given BID [facility] Dextrose 12.5 gm 08/30/24 07:17 08/30/24 07:45 Dextrose 50% 25 Gm/50 Ml Syringe IV PUSH 12.5 gm PRN PRN Administration Hypoglycemia Protocol Docusate Sodium 100 mg 08/25/24 17:00 09/08/24 08:40 Docusate Sodium 100 Mg Capsule PO Not Given BID [facility] Enoxaparin Sodium 40 mg 08/28/24 09:00 09/08/24 08:40 Enoxaparin 40 Mg/0.4 Ml Syringe SUB-Q 40 mg QAM [facility] Administration Glucagon 1 mg 08/30/24 07:17 Glucagon For Inj 1 Mg Vial IM PRN PRN Hypoglycemia Protocol Glucose 15 gm 08/30/24 07:17 Glucose Oral Gel 15 Gm Of Glucse In 37.5 Gm Tube PO PRN PRN Hypoglycemia Protocol Dextrose 1,000 mls @ 100 mls/hr 08/30/24 07:17 Dextrose 5% 1,000 Ml IVPB PRN PRN Hypoglycemia Protocol Dextrose 1,000 mls @ 50 mls/hr 08/30/24 14:11 Dextrose 10% IV CONT .Q20H PRN if PN is interrupted Fat Emulsion Intravenous 250 mls @ 20.833 mls/hr 08/30/24 15:00 09/07/24 14:09 Lipids 20% IVPB 20.8 mls/hr Q24H [facility] Administration Amino Acids/Electrolytes/Dextrose 1,000 mls @ 80 mls/hr 08/30/24 15:00 09/08/24 01:21 Clinimix E 4.25%/5% Solution IV CONT 80 mls/hr .[id number] [facility] Administration Protocol Insulin Human Regular 2 - 5 units 08/30/24 18:00 09/08/24 08:37 Insulin Human Regular (*Bkc) 100 Units/Ml SUB-Q Not Given Q6HR [facility] Protocol Megestrol Acetate 400 mg 08/25/24 17:00 09/08/24 08:40 Megestrol Acetate (*Chemo) Oral Susp 40 Mg/Ml Syr PO 400 mg BID [facility] Administration Morphine Sulfate 2 mg 09/05/24 10:21 09/07/24 20:47 Morphine Sulfate (*Crx) 2 Mg/Ml Inj IV PUSH 2 mg Q4H PRN Administration Pain Rated 7-10 Ondansetron HCl 4 mg 08/31/24 12:25 09/08/24 05:40 Ondansetron Inj 4 Mg/2 Ml Vial IV PUSH 4 mg Q4H PRN Administration Nausea And Vomiting Pantoprazole Sodium 40 mg 09/01/24 21:00 09/08/24 08:40 Pantoprazole Sodium Iv 40 Mg Vial IV PUSH 40 mg Q12HR [facility] Administration Sodium Chloride 10 ml 09/04/24 14:00 09/08/24 08:38 Central Line Flush IV PUSH Not Given Q8HR [facility] Sodium Chloride 10 ml 09/04/24 14:16 Central Line Flush IV PUSH PRN PRN with TPN bag changes Sodium Chloride 20 ml 09/04/24 14:16 Central Line Flush IV PUSH PRN PRN after blood draws Zolpidem Tartrate 5 mg 09/06/24 21:00 09/07/24 22:38 Zolpidem Tartrate (*Crx) 5 Mg Tablet PO Not Given HS [facility] Radiology Results: ITS Impressions Chest/Abdomen/Pelvis CT 08/31/24 13:07 IMPRESSION: 1. Findings compatible with small bowel obstruction, as detailed above. 2. Pneumoperitoneum. This can be related to G-tube placement if the procedure was performed recently. Correlate clinically and with physical examination to rule out pneumoperitoneum secondary to perforated viscus. 3. Findings concerning for pneumonia, as detailed above. Small Bowel X-Ray 09/03/24 22:06 IMPRESSION: Marked diffuse small bowel dilation. Contrast proceeded through small bowel in an antegrade fashion but did not appear to reach the large bowel by the 4 hour images. This may represent high-grade partial or complete obstruction. NG tube side port terminates at the GE junction, consider advancing. Recommend 24 hour follow-up abdominal radiography (at 13:30 on 08/27/2024). Chest X-Ray 09/04/24 14:50 IMPRESSION: Left upper extremity PICC line in good position and ready for immediate use. Abdomen X-Ray 09/05/24 06:44 Impression: 1: Moderately dilated small bowel with contrast throughout the colon. Differential diagnosis includes ileus and partial small bowel obstruction. Labs Labs: Laboratory Results - last 24 hr 09/07/24 09/07/24 09/07/24 06:31 11:18 12:00 Hgb 7.1 L Hct 22.1 L Absolute Retic 0.05 Percent Retic 2.27 Immature Retic Fraction 23.3 H Retic Hgb Content 34.5 Sodium Potassium Chloride Carbon Dioxide Anion Gap BUN Creatinine Estim Creat Clear Calc Estimated GFR Glucose POC Capillary Glucose 82 Calcium Iron 50 TIBC 182 L % Saturation 27 Ferritin 187.00 Triglycerides 88 112 09/07/24 09/08/24 09/08/24 18:28 00:46 05:36 Hgb Hct Absolute Retic Percent Retic Immature Retic Fraction Retic Hgb Content Sodium 123 L Potassium 3.4 Chloride 94 L Carbon Dioxide 26 Anion Gap 3 L BUN 20 Creatinine 0.41 L Estim Creat Clear Calc 101 Estimated GFR > 60 Glucose 92 POC Capillary Glucose 89 109 H Calcium 7.5 L Iron TIBC % Saturation Ferritin Triglycerides 95 09/08/24 09/08/24 05:36 06:06 Hgb Hct Absolute Retic Percent Retic Immature Retic Fraction Retic Hgb Content Sodium Potassium Chloride Carbon Dioxide Anion Gap BUN Creatinine Estim Creat Clear Calc Estimated GFR Glucose POC Capillary Glucose 101 Calcium Iron TIBC % Saturation Ferritin Triglycerides Cancelled
[2024-09-08 10:50] VITALS: BMI 16.3
[2024-09-08] MEDS: IRON SUCROSE COMPLEX 200 MG in SODIUM CHLORIDE 0.9% IV 100 ML 220 MG IVPB (11:39)
[2024-09-08 14:00] VITALS: BP 105/71; PULSE 100; RESP 18; TEMP 36.8; O2SAT 97
[2024-09-08] MEDS: CENTRAL LINE FLUSH 10 ML IV PUSH ×2 (15:26→21:25)
[2024-09-08 15:38] LABS: IFOB Positive Control Positive; Immunochemical Fecal Occult Bl Positive (N)
[2024-09-08] MEDS: ACETAMINOPHEN 325 MG TABLET 650 MG PO (21:37)
[2024-09-08 22:00] VITALS: BP 121/68; PULSE 110; RESP 20; TEMP 36.8; O2SAT 96
[2024-09-08] MEDS: ZOLPIDEM TARTRATE (*CRX) 5 MG TABLET PO (22:13)
[2024-09-09] MEDS: DEXTROSE 50% 25 GM/50 ML SYRINGE IV PUSH ×2 (00:19→11:59)
[2024-09-09] MEDS: ONDANSETRON INJ 4 MG/2 ML VIAL IV PUSH ×3 (02:53→21:44)
[2024-09-09 06:00] VITALS: BP 98/65; PULSE 118; RESP 20; TEMP 36.2; O2SAT 96
[2024-09-09] MEDS: CENTRAL LINE FLUSH 10 ML IV PUSH ×3 (06:22→21:45)
[2024-09-09 06:27] LABS: Anion Gap 5 mmol/L (4-12); Blood Urea Nitrogen 29 mg/dL (9-20); Calcium 7.8 mg/dL (8.4-10.2); Carbon Dioxide 24 mmol/L (22-30); Chloride 99 mmol/L (98-107); Estimated CRCL calculation 90 ml/min; Estimated Glomerular Filt Rate > 60; Glucose 76 mg/dL (65-110); Potassium 3.3 mmol/L (3.4-5.0); Sodium 128 mmol/L (137-145)
--- NOTE | 2024-09-09 06:56 | PC.NURSE ---
22:00 pt was connected to feeding tube 20 cc per hr as ordered, pt vomited twice during the night. at 5:40 am was the second time, pt asked to disconnect the feeding tube and he can't tolerate it. Residual was 5 cc. FT was disconnected and flushed.
[2024-09-09] MEDS: MEGESTROL ACETATE (*CHEMO) ORAL SUSP 40 MG/ML SYR 400 MG PO ×2 (08:56→17:09)
[2024-09-09] MEDS: CALCIUM CARBONATE (TUMS) 500 MG (200 MG ELEMENTAL) FEED TUBE ×2 (08:56→17:09)
[2024-09-09] MEDS: PANTOPRAZOLE SODIUM IV 40 MG VIAL IV PUSH ×2 (08:56→21:44)
[2024-09-09] MEDS: ACETAMINOPHEN 325 MG TABLET 650 MG PO (08:56)
[2024-09-09] MEDS: ENOXAPARIN 40 MG/0.4 ML SYRINGE SUB-Q (08:56)
--- NOTE | 2024-09-09 10:49 | PM.IMPN ---
Progress Note: A&P Assessment and Plan (1) Small bowel obstruction: Code(s): K56.609 - Unspecified intestinal obstruction, unspecified as to partial versus complete obstruction Status: Acute Plan Severe anemia Suspecting acute blood loss anemia on on chronic anemia Hemoglobin 7.0 today, Baseline hemoglobin from 10-12 Follow stool guaiac, ferritin, iron panel back on the lower side Start Venofer [address] AP showed SBO NG tube was removed Gen surgery following Resolved Patient tolerated clear diet Status post insertion of percutaneous endoscopic gastrostomy (PEG) tube: Code(s): Z93.1 - Gastrostomy status Status: Acute Assessment and Plan: On 08/25/2024 by GI G-tube placed for severe malnutrition. restart Tube feeding Start G tube feeding at 10 ML/HOUR titrate up effusion rate as tolerable to Dr. Padron Hypokalemia: Code(s): E87.6 - Hypokalemia Status: Resolved Assessment and Plan: Hyponatremia: Code(s): E87.1 - Hypo-osmolality and hyponatremia Status: Acute Assessment and Plan: Improving with TPN. Today's Sodium is 131. replacement with PPN/TPN. Hypocalcemia: Code(s): E83.51 - Hypocalcemia Status: Acute Assessment and Plan: Patient is on TPN Monitor calcium level Hypovolemic hypotension Code(s): I95.9 - Hypotension, unspecified Status: Acute Assessment and Plan: Likely due to dehydration and electrolyte imbalance Replete calcium stable Received fluid resuscitation. Patient is on TPN Protein-calorie malnutrition, severe: Code(s): E43 - Unspecified severe protein-calorie malnutrition Status: Acute Assessment and Plan: Small bowel obstruction has resolved Continue Megasetrol on PPN and G-tube feeding keno terminal operator (current) use of anticoagulants: Code(s): Z79.01 - keno terminal operator (current) use of anticoagulants Status: Acute Assessment and Plan: History of DVT and PE Does not appear to be on current anticoagulation Continue Lovenox Adenocarcinoma of cecum: Onset Date: ~01/2023 Code(s): C18.0 - Malignant neoplasm of cecum Status: Chronic Assessment and Plan: Ct on 07/31/24 Findings within the chest, abdomen and pelvis which demonstrate a positive response to treatment See plan above Patient condition is poor, prognosis guarded Discharge patient when patient is able tolerate G-tube feeding Subjective Date/time seen: 09/09/24 10:49 Interval history: I saw exam patient. Patient cannot tolerate tube feeding, vomited twice, will decreased infusion to 10 mL/hour, resume TPN Exam Narrative: GENERAL: in no acute distress. Severe malnutrition - EYES: EOMI. Anicteric. - HENT: Moist mucous membranes. - LUNGS: Clear to auscultation bilaterally, no wheezing, rhonchi, or rales. - CARDIOVASCULAR: Regular rate and rhythm. No murmur. No JVD. - ABDOMEN: Soft, non-tender and non-distended. No palpable masses. - EXTREMITIES: No edema. Peripheral pulses 2+. Non-tender. - NEUROLOGIC: No focal neurological deficits. CN II-XII grossly intact. - PSYCHIATRIC: Awake, Alert and oriented x 3. Appropriate mood and affect. - SKIN: No rashes or lesions. Warm. - LYMPH: No cervical lymphadenopathy. hia Objective Data Vital Signs Vital Signs: Vital Signs - 24 hr 09/08/24 14:00 09/08/24 20:00 09/08/24 22:00 Temperature 98.3 F 98.3 F Pulse Rate 100 110 H Respiratory Rate 18 20 Blood Pressure 105/71 121/68 Pulse Oximetry 97 96 Oxygen Delivery Room Air 09/09/24 06:00 09/09/24 08:00 Temperature 97.2 F L Pulse Rate 118 H Respiratory Rate 20 Blood Pressure 98/65 L Pulse Oximetry 96 Oxygen Delivery Room Air Intake/Output Intake/Output: Intake & Output 09/06/24 09/07/24 09/08/24 09/09/24 23:59 23:59 23:59 23:59 Intake Total 3004.7 2712 1584 250 Output Total 1265 336 173 6301 Balance 1739.7 2011 912 -401 Meds/Results Medications: Active Medications Generic Name Dose Route Start Last Admin Trade Name Freq PRN Reason Stop Dose Admin Acetaminophen 650 mg 08/25/24 14:38 09/09/24 08:56 Acetaminophen 325 Mg Tablet PO 650 mg Q4H PRN Administration Mild Pain (1-3) or Fever Calcium Carbonate 200 mg 08/28/24 17:00 09/09/24 08:56 Calcium Carbonate (Tums) 500 Mg (200 Mg Elemental) FEED TUBE 200 mg BID [facility] Administration Dextrose 12.5 gm 08/30/24 07:17 09/09/24 00:19 Dextrose 50% 25 Gm/50 Ml Syringe IV PUSH 12.5 gm PRN PRN Administration Hypoglycemia Protocol Docusate Sodium 100 mg 08/25/24 17:00 09/09/24 08:57 Docusate Sodium 100 Mg Capsule PO Not Given BID [facility] Enoxaparin Sodium 40 mg 08/28/24 09:00 09/09/24 08:56 Enoxaparin 40 Mg/0.4 Ml Syringe SUB-Q 40 mg QAM [facility] Administration Glucagon 1 mg 08/30/24 07:17 Glucagon For Inj 1 Mg Vial IM PRN PRN Hypoglycemia Protocol Glucose 15 gm 08/30/24 07:17 Glucose Oral Gel 15 Gm Of Glucse In 37.5 Gm Tube PO PRN PRN Hypoglycemia Protocol Dextrose 1,000 mls @ 100 mls/hr 08/30/24 07:17 Dextrose 5% 1,000 Ml IVPB PRN PRN Hypoglycemia Protocol Dextrose 1,000 mls @ 50 mls/hr 08/30/24 14:11 Dextrose 10% IV CONT .Q20H PRN if PN is interrupted Insulin Human Regular 2 - 5 units 08/30/24 18:00 09/09/24 06:21 Insulin Human Regular (*Bkc) 100 Units/Ml SUB-Q Not Given Q6HR [facility] Protocol Megestrol Acetate 400 mg 08/25/24 17:00 09/09/24 08:56 Megestrol Acetate (*Chemo) Oral Susp 40 Mg/Ml Syr PO 400 mg BID [facility] Administration Morphine Sulfate 2 mg 09/05/24 10:21 09/07/24 20:47 Morphine Sulfate (*Crx) 2 Mg/Ml Inj IV PUSH 2 mg Q4H PRN Administration Pain Rated 7-10 Ondansetron HCl 4 mg 08/31/24 12:25 09/09/24 08:56 Ondansetron Inj 4 Mg/2 Ml Vial IV PUSH 4 mg Q4H PRN Administration Nausea And Vomiting Pantoprazole Sodium 40 mg 09/01/24 21:00 09/09/24 08:56 Pantoprazole Sodium Iv 40 Mg Vial IV PUSH 40 mg Q12HR [facility] Administration Sodium Chloride 10 ml 09/04/24 14:00 09/09/24 06:22 Central Line Flush IV PUSH 10 ml Q8HR [facility] Administration Sodium Chloride 10 ml 09/04/24 14:16 Central Line Flush IV PUSH PRN PRN with TPN bag changes Sodium Chloride 20 ml 09/04/24 14:16 Central Line Flush IV PUSH PRN PRN after blood draws Zolpidem Tartrate 5 mg 09/06/24 21:00 09/08/24 22:13 Zolpidem Tartrate (*Crx) 5 Mg Tablet PO 5 mg HS KULDIP Administration Radiology Results: ITS Impressions Chest/Abdomen/Pelvis CT 08/31/24 13:07 IMPRESSION: 1. Findings compatible with small bowel obstruction, as detailed above. 2. Pneumoperitoneum. This can be related to G-tube placement if the procedure was performed recently. Correlate clinically and with physical examination to rule out pneumoperitoneum secondary to perforated viscus. 3. Findings concerning for pneumonia, as detailed above. Small Bowel X-Ray 09/03/24 22:06 IMPRESSION: Marked diffuse small bowel dilation. Contrast proceeded through small bowel in an antegrade fashion but did not appear to reach the large bowel by the 4 hour images. This may represent high-grade partial or complete obstruction. NG tube side port terminates at the GE junction, consider advancing. Recommend 24 hour follow-up abdominal radiography (at 13:30 on 08/27/2024). Chest X-Ray 09/04/24 14:50 IMPRESSION: Left upper extremity PICC line in good position and ready for immediate use. Abdomen X-Ray 09/05/24 06:44 Impression: 1: Moderately dilated small bowel with contrast throughout the colon. Differential diagnosis includes ileus and partial small bowel obstruction. Labs Labs: Laboratory Results - last 24 hr 09/08/24 09/08/24 09/08/24 11:24 14:45 18:10 Sodium Potassium Chloride Carbon Dioxide Anion Gap BUN Creatinine Estim Creat Clear Calc Estimated GFR Glucose POC Capillary Glucose 97 74 Calcium Stl Occult Blood (IFOB) Positive H 09/08/24 09/09/24 09/09/24 19:25 00:08 01:02 Sodium Potassium Chloride Carbon Dioxide Anion Gap BUN Creatinine Estim Creat Clear Calc Estimated GFR Glucose POC Capillary Glucose 72 67 105 Calcium Stl Occult Blood (IFOB) 09/09/24 09/09/24 05:56 06:18 Sodium 128 L Potassium 3.3 L Chloride 99 Carbon Dioxide 24 Anion Gap 5 BUN 29 H Creatinine 0.47 L Estim Creat Clear Calc 90 Estimated GFR > 60 Glucose 76 POC Capillary Glucose 78 Calcium 7.8 L Stl Occult Blood (IFOB)
--- NOTE | 2024-09-09 11:55 | PCPTNOTE ---
Patient refused treatment this session due to nausea. Patient states tube feedings were resumed and he is not tolerating it well. Patient states he vomited earlier and continues to feel nauseated.
--- NOTE | 2024-09-09 13:04 | P.PN_ITS ---
Progress Note: A&P Assessment and Plan (1) Protein-calorie malnutrition, severe: Code(s): E43 - Unspecified severe protein-calorie malnutrition Status: Acute Assessment and Plan: Patient with severe malnutrition. He had no evidence of High- grademechanical bowel obstruction but diffuse dilation more consistent with ileus type picture or mild partial bowel obstruction. He continues to have bowel movements. TPN has been weaned off he has been started on tube feeds at a low rate 10cc/hour. Potassium is low low at 3.3 today. Recommend keeping his potassium greater than 3.8 and replacing his potassium as needed. He does not appear to have acute surgical abdomen or any further reason why we need to continue to follow him closely from a general surgery standpoint. General surgery will be available as needed. (2) Abnormal CT scan, gastrointestinal tract: Code(s): R93.3 - Abnormal findings on diagnostic imaging of other parts of digestive tract Status: Acute Assessment and Plan: Dilation of the small bowel consistent with either adynamic ileus or partial small-bowel obstruction. Patient has been having bowel movements and tolerating some p.o.. However he has been having some chronic nausea vomiting number of an ileus type picture. Low potassium level again today. Recommend keeping his potassium above 3.8 and supplement as needed. Surgery will be available p.r.n.. Subjective Date/time seen: 09/09/24 13:04 Interval history: Patient states he had a couple episodes of emesis last evening. She has c ontinued to have bowel movements. He did eat much of his breakfast this morning. Hospitalist has stopped his TPN and transition him over to tube feeds which are currently running at a low rate at10cc/hour. Otherwise he has been clinically stable. Exam GI: Other: Abdomen is soft and minimally distended. Nontender to palpation. Benign. Objective Data Vital Signs Vital Signs: Vital Signs - 24 hr 09/08/24 14:00 09/08/24 20:00 09/08/24 22:00 Temperature 36.8 C 36.8 C Pulse Rate 100 110 H Respiratory Rate 18 20 Blood Pressure 105/71 121/68 Pulse Oximetry 97 96 Oxygen Delivery Room Air 09/09/24 06:00 09/09/24 08:00 Temperature 36.2 C L Pulse Rate 118 H Respiratory Rate 20 Blood Pressure 98/65 L Pulse Oximetry 96 Oxygen Delivery Room Air Intake/Output Intake/Output: Intake & Output 09/06/24 09/07/24 09/08/24 09/09/24 23:59 23:59 23:59 23:59 Intake Total 3004.7 2712 1584 250 Output Total 1265 535 281 1344 Balance 1739.7 2011 944 -744 Meds/Results Medications: Active Medications Generic Name Dose Route Start Last Admin Trade Name Freq PRN Reason Stop Dose Admin Acetaminophen 650 mg 08/25/24 14:38 09/09/24 08:56 Acetaminophen 325 Mg Tablet PO 650 mg Q4H PRN Administration Mild Pain (1-3) or Fever Calcium Carbonate 200 mg 08/28/24 17:00 09/09/24 08:56 Calcium Carbonate (Tums) 500 Mg (200 Mg Elemental) FEED TUBE 200 mg BID [facility] Administration Dextrose 12.5 gm 08/30/24 07:17 09/09/24 11:59 Dextrose 50% 25 Gm/50 Ml Syringe IV PUSH 12.5 gm PRN PRN Administration Hypoglycemia Protocol Docusate Sodium 100 mg 08/25/24 17:00 09/09/24 08:57 Docusate Sodium 100 Mg Capsule PO Not Given BID [facility] Enoxaparin Sodium 40 mg 08/28/24 09:00 09/09/24 08:56 Enoxaparin 40 Mg/0.4 Ml Syringe SUB-Q 40 mg QAM [facility] Administration Glucagon 1 mg 08/30/24 07:17 Glucagon For Inj 1 Mg Vial IM PRN PRN Hypoglycemia Protocol Glucose 15 gm 08/30/24 07:17 Glucose Oral Gel 15 Gm Of Glucse In 37.5 Gm Tube PO PRN PRN Hypoglycemia Protocol Dextrose 1,000 mls @ 100 mls/hr 08/30/24 07:17 Dextrose 5% 1,000 Ml IVPB PRN PRN Hypoglycemia Protocol Dextrose 1,000 mls @ 50 mls/hr 09/09/24 12:47 Dextrose 10% IV CONT .Q20H PRN if PN is interrupted Insulin Human Regular 2 - 5 units 08/30/24 18:00 09/09/24 11:52 Insulin Human Regular (*Bkc) 100 Units/Ml SUB-Q Not Given Q6HR [facility] Protocol Megestrol Acetate 400 mg 08/25/24 17:00 09/09/24 08:56 Megestrol Acetate (*Chemo) Oral Susp 40 Mg/Ml Syr PO 400 mg BID [facility] Administration Morphine Sulfate 2 mg 09/05/24 10:21 09/07/24 20:47 Morphine Sulfate (*Crx) 2 Mg/Ml Inj IV PUSH 2 mg Q4H PRN Administration Pain Rated 7-10 Ondansetron HCl 4 mg 08/31/24 12:25 09/09/24 08:56 Ondansetron Inj 4 Mg/2 Ml Vial IV PUSH 4 mg Q4H PRN Administration Nausea And Vomiting Pantoprazole Sodium 40 mg 09/01/24 21:00 09/09/24 08:56 Pantoprazole Sodium Iv 40 Mg Vial IV PUSH 40 mg Q12HR [facility] Administration Sodium Chloride 10 ml 09/04/24 14:00 09/09/24 06:22 Central Line Flush IV PUSH 10 ml Q8HR [facility] Administration Sodium Chloride 10 ml 09/04/24 14:16 Central Line Flush IV PUSH PRN PRN with TPN bag changes Sodium Chloride 20 ml 09/04/24 14:16 Central Line Flush IV PUSH PRN PRN after blood draws Zolpidem Tartrate 5 mg 09/06/24 21:00 09/08/24 22:13 Zolpidem Tartrate (*Crx) 5 Mg Tablet PO 5 mg HS [facility]UL[facility]IP Administration Radiology Results: ITS Impressions Chest/Abdomen/Pelvis CT 08/31/24 13:07 IMPRESSION: 1. Findings compatible with small bowel obstruction, as detailed above. 2. Pneumoperitoneum. This can be related to G-tube placement if the procedure was performed recently. Correlate clinically and with physical examination to rule out pneumoperitoneum secondary to perforated viscus. 3. Findings concerning for pneumonia, as detailed above. Small Bowel X-Ray 09/03/24 22:06 IMPRESSION: Marked diffuse small bowel dilation. Contrast proceeded through small bowel in an antegrade fashion but did not appear to reach the large bowel by the 4 hour images. This may represent high-grade partial or complete obstruction. NG tube side port terminates at the GE junction, consider advancing. Recommend 24 hour follow-up abdominal radiography (at 13:30 on 08/27/2024). Chest X-Ray 09/04/24 14:50 IMPRESSION: Left upper extremity PICC line in good position and ready for immediate use. Abdomen X-Ray 09/05/24 06:44 Impression: 1: Moderately dilated small bowel with contrast throughout the colon. Differential diagnosis includes ileus and partial small bowel obstruction. Labs Labs: Laboratory Results - last 24 hr 09/08/24 09/08/24 09/08/24 14:45 18:10 19:25 Sodium Potassium Chloride Carbon Dioxide Anion Gap BUN Creatinine Estim Creat Clear Calc Estimated GFR Glucose POC Capillary Glucose 74 72 Calcium Stl Occult Blood (IFOB) Positive H 09/09/24 09/09/24 09/09/24 00:08 01:02 05:56 Sodium 128 L Potassium 3.3 L Chloride 99 Carbon Dioxide 24 Anion Gap 5 BUN 29 H Creatinine 0.47 L Estim Creat Clear Calc 90 Estimated GFR > 60 Glucose 76 POC Capillary Glucose 67 105 Calcium 7.8 L Stl Occult Blood (IFOB) 09/09/24 09/09/24 09/09/24 06:18 11:51 12:29 Sodium Potassium Chloride Carbon Dioxide Anion Gap BUN Creatinine Estim Creat Clear Calc Estimated GFR Glucose POC Capillary Glucose 78 55 L* 130 H Calcium Stl Occult Blood (IFOB)
[2024-09-09 13:41] LABS: Hematocrit 24.4 % (42.0-52.0); Hemoglobin 7.8 g/dL (14.0-18.0); Immature Granulocyte Percent A 0.3 % (0-0.5); Lymphocytes Absolute Auto 0.76 K/mm3 (0.9-3.2); Mean Corpuscular HGB Conc 32.0 g/dl (32-36); Mean Corpuscular Hemoglobin 30.4 pg (26-34); Mean Corpuscular Volume 94.9 fl (80-100); Nucleated Red Blood Cells Absolute Auto 0.000 K/mm3 (0.0-0.012); Nucleated Red Blood Cells Perc 0.0 % (0.0-0.2); Platelet Count Result 224 k/mm3 (150-375); Red Blood Count 2.57 M/mm3 (4.6-6.20); White Blood Count 6.1 K/mm3 (4.5-10.0)
[2024-09-09 13:57] LABS: Partial Thromboplastin Time 25.9 Seconds (22.3-36.8)
[2024-09-09 14:00] VITALS: BP 98/66; PULSE 101; RESP 20; TEMP 36.7; O2SAT 96
[2024-09-09 14:00] LABS: Alanine Aminotransferase 47 U/L (6-50); Albumin Level 2.2 g/dL (3.5-5.1); Alkaline Phosphatase 78 U/L (38-126); Anion Gap 4 mmol/L (4-12); Aspartate Amino Transferase 41 U/L (17-59); Bilirubin,Total 0.7 mg/dL (0.2-1.3); Blood Urea Nitrogen 29 mg/dL (9-20); Calcium 7.8 mg/dL (8.4-10.2); Carbon Dioxide 25 mmol/L (22-30); Chloride 99 mmol/L (98-107); Estimated CRCL calculation 88 ml/min; Estimated Glomerular Filt Rate > 60; Glucose 93 mg/dL (65-110); Magnesium 2.0 mg/dL (1.6-2.3); Potassium 3.3 mmol/L (3.4-5.0); Sodium 128 mmol/L (137-145); Total Protein 4.5 g/dL (6.3-8.2); Triglycerides 91 mg/dL (<150)
[2024-09-09 14:07] LABS: Transferrin 121 mg/dL (206-381)
[2024-09-09 20:00] VITALS: PULSE 111; RESP 18; O2SAT 97
[2024-09-09 22:00] VITALS: BP 94/56; PULSE 111; RESP 18; TEMP 36.7; O2SAT 97
[2024-09-09] MEDS: DEXTROSE 5%/LACTATED RINGERS 1,000 ML 100 ML IV CONT (23:48)
--- NOTE | 2024-09-10 00:57 | PC.NURSE ---
23:00 pt vomited and asked to be disconnected from the feeding, states he can't tolerate it and wants to sleep. Residual was 3 cc. Tube was flushed and disconnected. N office receptionist Kristi Brumfield was notified. pt was educated but refuses the feeding at this time. Also, since pt was disconnected, his BG tends to be low, [employer] notified, pt was connected to 1000cc D5LR once. will keep monitoring.
[2024-09-10 05:56] LABS: Anion Gap 4 mmol/L (4-12); Blood Urea Nitrogen 31 mg/dL (9-20); Calcium 7.6 mg/dL (8.4-10.2); Carbon Dioxide 24 mmol/L (22-30); Chloride 100 mmol/L (98-107); Estimated CRCL calculation 90 ml/min; Estimated Glomerular Filt Rate > 60; Glucose 94 mg/dL (65-110); Potassium 3.4 mmol/L (3.4-5.0); Sodium 128 mmol/L (137-145); Triglycerides 81 mg/dL (<150)
[2024-09-10 06:00] VITALS: BP 122/74; PULSE 101; RESP 20; TEMP 36.2; O2SAT 100
[2024-09-10] MEDS: PANTOPRAZOLE SODIUM IV 40 MG VIAL IV PUSH ×2 (08:36→21:07)
[2024-09-10] MEDS: ENOXAPARIN 40 MG/0.4 ML SYRINGE SUB-Q (08:36)
[2024-09-10] MEDS: MEGESTROL ACETATE (*CHEMO) ORAL SUSP 40 MG/ML SYR 400 MG PO (08:36)
[2024-09-10] MEDS: CALCIUM CARBONATE (TUMS) 500 MG (200 MG ELEMENTAL) FEED TUBE (08:36)
[2024-09-10 12:01] LABS: Hematocrit 24.2 % (42.0-52.0); Hemoglobin 8.0 g/dL (14.0-18.0); Immature Granulocyte Percent A 0.4 % (0-0.5); Lymphocytes Absolute Auto 1.14 K/mm3 (0.9-3.2); Mean Corpuscular HGB Conc 33.1 g/dl (32-36); Mean Corpuscular Hemoglobin 31.3 pg (26-34); Mean Corpuscular Volume 94.5 fl (80-100); Nucleated Red Blood Cells Absolute Auto 0.000 K/mm3 (0.0-0.012); Nucleated Red Blood Cells Perc 0.0 % (0.0-0.2); Platelet Count Result 253 k/mm3 (150-375); Red Blood Count 2.56 M/mm3 (4.6-6.20); White Blood Count 5.6 K/mm3 (4.5-10.0)
[2024-09-10 12:17] LABS: Partial Thromboplastin Time 29.9 Seconds (22.3-36.8)
[2024-09-10 12:25] LABS: Alanine Aminotransferase 70 U/L (6-50); Albumin Level 2.3 g/dL (3.5-5.1); Alkaline Phosphatase 79 U/L (38-126); Anion Gap 1 mmol/L (4-12); Aspartate Amino Transferase 55 U/L (17-59); Bilirubin,Total 0.6 mg/dL (0.2-1.3); Blood Urea Nitrogen 28 mg/dL (9-20); Calcium 7.6 mg/dL (8.4-10.2); Carbon Dioxide 27 mmol/L (22-30); Chloride 100 mmol/L (98-107); Estimated CRCL calculation 85 ml/min; Estimated Glomerular Filt Rate > 60; Glucose 89 mg/dL (65-110); Magnesium 2.0 mg/dL (1.6-2.3); Potassium 3.4 mmol/L (3.4-5.0); Sodium 128 mmol/L (137-145); Total Protein 4.5 g/dL (6.3-8.2)
--- NOTE | 2024-09-10 12:26 | PC.NURSE ---
I reviewed the License Pending Nurse's documentation and agree with the findings.
[2024-09-10 12:32] LABS: Transferrin 115 mg/dL (206-381)
[2024-09-10 14:00] VITALS: BP 100/66; PULSE 109; RESP 22; TEMP 36.8; O2SAT 95
[2024-09-10] MEDS: METOCLOPRAMIDE HCL INJ 10 MG/2 ML VIAL IV PUSH ×2 (14:42→21:07)
[2024-09-10] MEDS: AMINO ACIDS 5%/D15W/E-LYTES/CA 1,000 ML with MULTIVITAMINS-12 INJ VIAL 1 1.25 ML, MULTI... 40 ML IV CONT (14:42)
[2024-09-10] MEDS: CENTRAL LINE FLUSH 10 ML IV PUSH ×2 (14:43→21:09)
[2024-09-10 20:52] VITALS: BP 96/68; PULSE 110; RESP 18; TEMP 36.3; O2SAT 97
[2024-09-10] MEDS: ACETAMINOPHEN 325 MG TABLET 650 MG PO (23:41)
[2024-09-11 05:40] VITALS: BP 91/60; PULSE 99; RESP 16; TEMP 36.3; O2SAT 98
[2024-09-11] MEDS: METOCLOPRAMIDE HCL INJ 10 MG/2 ML VIAL IV PUSH ×3 (06:07→21:20)
[2024-09-11] MEDS: CENTRAL LINE FLUSH 10 ML IV PUSH ×3 (06:07→21:20)
[2024-09-11 06:37] LABS: Hematocrit 24.0 % (42.0-52.0); Hemoglobin 7.7 g/dL (14.0-18.0); Immature Granulocyte Percent A 0.4 % (0-0.5); Lymphocytes Absolute Auto 1.08 K/mm3 (0.9-3.2); Mean Corpuscular HGB Conc 32.1 g/dl (32-36); Mean Corpuscular Hemoglobin 31.0 pg (26-34); Mean Corpuscular Volume 96.8 fl (80-100); Nucleated Red Blood Cells Absolute Auto 0.000 K/mm3 (0.0-0.012); Nucleated Red Blood Cells Perc 0.0 % (0.0-0.2); Platelet Count Result 250 k/mm3 (150-375); Red Blood Count 2.48 M/mm3 (4.6-6.20); White Blood Count 4.8 K/mm3 (4.5-10.0)
[2024-09-11 06:48] LABS: INR 1.4; Prothrombin Time 16.9 Seconds (11.1-14.7)
[2024-09-11 06:49] LABS: Partial Thromboplastin Time 26.7 Seconds (22.3-36.8)
--- NOTE | 2024-09-11 06:55 | P.PNIM_ITS ---
Progress Note: A&P Assessment and Plan (1) Protein-calorie malnutrition, severe: Code(s): E43 - Unspecified severe protein-calorie malnutrition Status: Acute Time Spent With Patient Time: Unclear why Reglan was stopped. Patient and nurses do at no. There is no documentation. Discontinue megestrol as it can cause nausea and vomiting. Start Reglan. Discussed the side effects of long-term Reglan use and the patient will like to proceed of course the main priority to him is to be able to eat. Advised him to eat slow at 1st. In the meantime he has not had adequate nutrition so will start TPN. He wishes to be full code. Subjective Date/time seen: 09/10/2024 at 1300 Interval history: Patient reports nausea. He had to loose brown BMs. Review of Systems Review of Systems: All systems reviewed & are unremarkable except as noted in HPI and below (Subjective) Exam Const: General: comfortable and no acute distress Other: A&O x3, cachectic HENMT: Mouth: Yes dry mucous membranes Eyes: Pupils: Equal, round and reactive pupils present Neck: Neck: supple Resp: Effort & Inspection: normal respiratory effort Auscultation: clear to auscultation bilaterally Cardio: Rate: regular rate Rhythm: regular rhythm GI: Inspection: non-distended GI Palp: Yes Soft to palpation Neuro: Other: Globally weak Extrem: General: no edema Objective Data Vital Signs Vital Signs: Vital Signs - 24 hr 09/10/24 08:50 09/10/24 14:00 09/10/24 20:00 Temperature 98.3 F Pulse Rate 109 H Respiratory Rate 22 H Blood Pressure 100/66 Pulse Oximetry 95 Oxygen Delivery Room Air Room Air 09/10/24 20:52 09/11/24 05:40 Temperature 97.4 F L 97.3 F L Pulse Rate 110 H 99 Respiratory Rate 18 16 Blood Pressure 96/68 L 91/60 L Pulse Oximetry 97 98 Oxygen Delivery Intake/Output Intake/Output: Intake & Output 09/08/24 09/09/24 09/10/24 09/11/24 23:59 23:59 23:59 23:59 Intake Total 1584 250 240 Output Total 800 1300 1150 551 Balance 784 -1050 -910 -551 Meds/Results Medications: Active Medications Generic Name Dose Route Start Last Admin Trade Name Freq PRN Reason Stop Dose Admin Acetaminophen 650 mg 08/25/24 14:38 09/10/24 23:41 Acetaminophen 325 Mg Tablet PO 650 mg Q4H PRN Administration Mild Pain (1-3) or Fever Dextrose 12.5 gm 08/30/24 07:17 09/09/24 11:59 Dextrose 50% 25 Gm/50 Ml Syringe IV PUSH 12.5 gm PRN PRN Administration Hypoglycemia Protocol Docusate Sodium 100 mg 09/10/24 21:00 09/10/24 21:06 Docusate Sodium Liq 100 Mg/10 Ml Udc FEED TUBE Not Given Q12HR [facility] Enoxaparin Sodium 40 mg 08/28/24 09:00 09/10/24 08:36 Enoxaparin 40 Mg/0.4 Ml Syringe SUB-Q 40 mg QAM KULDIP Administration Glucose 15 gm 08/30/24 07:17 Glucose Oral Gel 15 Gm Of Glucse In 37.5 Gm Tube PO PRN PRN Hypoglycemia Protocol Dextrose 1,000 mls @ 100 mls/hr 08/30/24 07:17 Dextrose 5% 1,000 Ml IVPB PRN PRN Hypoglycemia Protocol Dextrose 1,000 mls @ 50 mls/hr 09/10/24 11:11 Dextrose 10% IV CONT .Q20H PRN if PN is interrupted Multivitamins 1.25 ml/ 1,002.5 mls @ 40 mls/hr 09/10/24 13:00 09/10/24 14:42 Multivitamins 1.25 ml/ Amino IV CONT 40 mls/hr Acids/Electrolytes/Dextrose .Q24H K[facility]IP Administration Protocol Insulin Human Regular 2 - 5 units 08/30/24 18:00 09/11/24 06:10 Insulin Human Regular (*Bkc) 100 Units/Ml SUB-Q Not Given Q6HR [facility] Protocol Metoclopramide HCl 10 mg 09/10/24 14:00 09/11/24 06:07 Metoclopramide Hcl Inj 10 Mg/2 Ml Vial IV PUSH 10 mg Q8H [facility] Administration Morphine Sulfate 2 mg 09/05/24 10:21 09/07/24 20:47 Morphine Sulfate (*Crx) 2 Mg/Ml Inj IV PUSH 2 mg Q4H PRN Administration Pain Rated 7-10 Ondansetron HCl 4 mg 08/31/24 12:25 09/09/24 21:44 Ondansetron Inj 4 Mg/2 Ml Vial IV PUSH 4 mg Q4H PRN Administration Nausea And Vomiting Pantoprazole Sodium 40 mg 09/01/24 21:00 09/10/24 21:07 Pantoprazole Sodium Iv 40 Mg Vial IV PUSH 40 mg Q12HR [facility] Administration Sodium Chloride 10 ml 09/04/24 14:00 09/11/24 06:07 Central Line Flush IV PUSH 10 ml Q8HR K[facility]IP Administration Sodium Chloride 10 ml 09/04/24 14:16 Central Line Flush IV PUSH PRN PRN with TPN bag changes Sodium Chloride 20 ml 09/04/24 14:16 Central Line Flush IV PUSH PRN PRN after blood draws Zolpidem Tartrate 5 mg 09/06/24 21:00 09/10/24 21:06 Zolpidem Tartrate (*Crx) 5 Mg Tablet PO Not Given HS [facility] Radiology Results: ITS Impressions Chest/Abdomen/Pelvis CT 08/31/24 13:07 IMPRESSION: 1. Findings compatible with small bowel obstruction, as detailed above. 2. Pneumoperitoneum. This can be related to G-tube placement if the procedure was performed recently. Correlate clinically and with physical examination to rule out pneumoperitoneum secondary to perforated viscus. 3. Findings concerning for pneumonia, as detailed above. Small Bowel X-Ray 09/03/24 22:06 IMPRESSION: Marked diffuse small bowel dilation. Contrast proceeded through small bowel in an antegrade fashion but did not appear to reach the large bowel by the 4 hour images. This may represent high-grade partial or complete obstruction. NG tube side port terminates at the GE junction, consider advancing. Recommend 24 hour follow-up abdominal radiography (at 13:30 on 08/27/2024). Chest X-Ray 09/04/24 14:50 IMPRESSION: Left upper extremity PICC line in good position and ready for immediate use. Abdomen X-Ray 09/05/24 06:44 Impression: 1: Moderately dilated small bowel with contrast throughout the colon. Differential diagnosis includes ileus and partial small bowel obstruction. Labs Labs: Laboratory Results - last 24 hr 09/10/24 09/10/24 09/10/24 11:40 11:49 17:05 WBC 5.6 RBC 2.56 L Hgb 8.0 L Hct 24.2 L MCV 94.5 MCH 31.3 MCHC 33.1 RDW 17.1 H Plt Count 253 MPV 8.7 Immature Gran % (Auto) 0.4 Neut % (Auto) 68.6 Lymph % (Auto) 20.5 [place] % (Auto) 10.1 H Eos % (Auto) 0.4 Baso % (Auto) 0.0 L Lymph # (Auto) 1.14 [place] # (Auto) 0.6 Eos # (Auto) 0.0 Baso # (Auto) 0.0 Abs Immat Gran (auto) 0.02 Absolute Neuts (auto) 3.8 Absolute Nucleated RBC 0.000 Nucleated RBC % 0.0 PT INR APTT 29.9 Sodium 128 L Potassium 3.4 Chloride 100 Carbon Dioxide 27 Anion Gap 1 L BUN 28 H Creatinine 0.50 L Estim Creat Clear Calc 85 Estimated GFR > 60 Glucose 89 POC Capillary Glucose 95 115 H Calcium 7.6 L Magnesium 2.0 Transferrin 115 L Total Bilirubin 0.6 AST 55 ALT 70 H Alkaline Phosphatase 79 Total Protein 4.5 L Albumin 2.3 L 09/11/24 09/11/24 09/11/24 00:55 05:43 06:28 WBC 4.8 RBC 2.48 L Hgb 7.7 L Hct 24.0 L MCV 96.8 MCH 31.0 MCHC 32.1 RDW 17.3 H Plt Count 250 MPV 8.7 Immature Gran % (Auto) 0.4 Neut % (Auto) 66.0 Lymph % (Auto) 22.4 [place] % (Auto) 10.6 H Eos % (Auto) 0.4 Baso % (Auto) 0.2 Lymph # (Auto) 1.08 [place] # (Auto) 0.5 Eos # (Auto) 0.0 Baso # (Auto) 0.0 Abs Immat Gran (auto) 0.02 Absolute Neuts (auto) 3.2 Absolute Nucleated RBC 0.000 Nucleated RBC % 0.0 PT 16.9 H INR 1.4 APTT 26.7 Sodium Potassium Chloride Carbon Dioxide Anion Gap BUN Creatinine Estim Creat Clear Calc Estimated GFR Glucose POC Capillary Glucose 118 H 118 H Calcium Magnesium Transferrin Total Bilirubin AST ALT Alkaline Phosphatase Total Protein Albumin
[2024-09-11 07:07] LABS: Alanine Aminotransferase 68 U/L (6-50); Albumin Level 2.3 g/dL (3.5-5.1); Alkaline Phosphatase 86 U/L (38-126); Anion Gap 1 mmol/L (4-12); Aspartate Amino Transferase 75 U/L (17-59); Bilirubin,Total 0.4 mg/dL (0.2-1.3); Blood Urea Nitrogen 28 mg/dL (9-20); Calcium 7.7 mg/dL (8.4-10.2); Carbon Dioxide 27 mmol/L (22-30); Chloride 100 mmol/L (98-107); Estimated CRCL calculation 82 ml/min; Estimated Glomerular Filt Rate > 60; Glucose 94 mg/dL (65-110); Potassium 3.6 mmol/L (3.4-5.0); Sodium 128 mmol/L (137-145); Total Protein 4.4 g/dL (6.3-8.2)
[2024-09-11 07:14] LABS: Transferrin 115 mg/dL (206-381)
[2024-09-11 07:25] LABS: Magnesium 2.0 mg/dL (1.6-2.3)
[2024-09-11 08:00] VITALS: O2SAT 96
[2024-09-11] MEDS: PANTOPRAZOLE SODIUM IV 40 MG VIAL IV PUSH ×2 (10:17→21:20)
[2024-09-11] MEDS: ENOXAPARIN 40 MG/0.4 ML SYRINGE SUB-Q (10:17)
[2024-09-11] MEDS: ACETAMINOPHEN 325 MG TABLET 650 MG PO (10:18)
[2024-09-11 10:34] LABS: Triglycerides 62 mg/dL (<150)
[2024-09-11 14:00] VITALS: BP 106/72; PULSE 110; RESP 18; TEMP 36.6; O2SAT 99
--- NOTE | 2024-09-11 15:21 | P.PNIM_ITS ---
Progress Note: A&P Assessment and Plan (1) Protein-calorie malnutrition, severe: Code(s): E43 - Unspecified severe protein-calorie malnutrition Status: Acute Time Spent With Patient Time: Unclear why Reglan was stopped. Patient and nurses do at no. There is no documentation. Discontinue megestrol as it can cause nausea and vomiting. Start Reglan. Discussed the side effects of long-term Reglan use and the patient will like to proceed of course the main priority to him is to be able to eat. Advised him to eat slow at 1st. In the meantime he has not had adequate nutrition so will start TPN. 09/11/2024: The patient's care has been quite complicated. He told me he wanted to do tube feeds but then later refused to the nurse. He also has been refusing food because it does not look good. He still has nausea but he has been able to eat magic ice cream with brownies as well as some supplement shakes. This is an improvement. Probably because the Reglan was restarted. Ultimately, the patient does not want TPN, he is very unclear about whether he wants to do tube feeds are not, it appears he wants to have his own oral intake. At this point, if the Reglan is working we will continue that and plan for discharge [facility] with [facility] feeding and we will send instruction for tube feeds to be started if the patient ever wishes to use them he has been refusing. We also had another discussion about hospice any refused that as well. We discussed the risks versus benefits of inadequate nutrition, Reglan, and he wished to proceed as described above. This conversation was held with nurse. Discontinue TPN. He wishes to be full code. Lovenox 40 mg subQ q.day. Protonix 40 mg IV b.i.d.. PICC line placed on 09/04/2024. Subjective Date/time seen: 09/11/24 15:21 Interval history: Patient reports nausea although may be better. He has been able to take [place] and Magic ice cream and he also had a supplement shake. He had a loose brown BM today. Review of Systems Review of Systems: All systems reviewed & are unremarkable except as noted in HPI and below (Subjective) Exam Const: General: comfortable and no acute distress Other: A&O x3, cachectic HENMT: Mouth: Yes dry mucous membranes Eyes: Pupils: Equal, round and reactive pupils present Neck: Neck: supple Resp: Effort & Inspection: normal respiratory effort Auscultation: clear to auscultation bilaterally Cardio: Rate: regular rate Rhythm: regular rhythm GI: Inspection: non-distended GI Palp: Yes Soft to palpation Neuro: Other: Globally weak Extrem: General: no edema Objective Data Vital Signs Vital Signs: Vital Signs - 24 hr 09/10/24 20:00 09/10/24 20:52 09/11/24 05:40 Temperature 97.4 F L 97.3 F L Pulse Rate 110 H 99 Respiratory Rate 18 16 Blood Pressure 96/68 L 91/60 L Pulse Oximetry 97 98 Oxygen Delivery Room Air 09/11/24 08:00 09/11/24 12:58 09/11/24 13:07 Temperature Pulse Rate Respiratory Rate Blood Pressure Pulse Oximetry 96 Oxygen Delivery Room Air Room Air Room Air 09/11/24 14:00 Temperature 97.9 F Pulse Rate 110 H Respiratory Rate 18 Blood Pressure 106/72 Pulse Oximetry 99 Oxygen Delivery Intake/Output Intake/Output: Intake & Output 09/08/24 09/09/24 09/10/24 09/11/24 23:59 23:59 23:59 23:59 Intake Total 1584 250 240 Output Total 800 1300 1150 551 Balance 784 -1050 -910 -551 Meds/Results Medications: Active Medications Generic Name Dose Route Start Last Admin Trade Name Freq PRN Reason Stop Dose Admin Acetaminophen 650 mg 08/25/24 14:38 09/11/24 10:18 Acetaminophen 325 Mg Tablet PO 650 mg Q4H PRN Administration Mild Pain (1-3) or Fever Dextrose 12.5 gm 08/30/24 07:17 09/09/24 11:59 Dextrose 50% 25 Gm/50 Ml Syringe IV PUSH 12.5 gm PRN PRN Administration Hypoglycemia Protocol Docusate Sodium 100 mg 09/10/24 21:00 09/11/24 10:17 Docusate Sodium Liq 100 Mg/10 Ml Udc FEED TUBE 100 mg Q12HR [facility]IP Administration Enoxaparin Sodium 40 mg 08/28/24 09:00 09/11/24 10:17 Enoxaparin 40 Mg/0.4 Ml Syringe SUB-Q 40 mg QAM KULDIP Administration Glucose 15 gm 08/30/24 07:17 Glucose Oral Gel 15 Gm Of Glucse In 37.5 Gm Tube PO PRN PRN Hypoglycemia Protocol Dextrose 1,000 mls @ 100 mls/hr 08/30/24 07:17 Dextrose 5% 1,000 Ml IVPB PRN PRN Hypoglycemia Protocol Dextrose 1,000 mls @ 50 mls/hr 09/10/24 11:11 Dextrose 10% IV CONT .Q20H PRN if PN is interrupted Insulin Human Regular 2 - 5 units 08/30/24 18:00 09/11/24 12:31 Insulin Human Regular (*Bkc) 100 Units/Ml SUB-Q Not Given Q6HR [facility] Protocol Metoclopramide HCl 10 mg 09/10/24 14:00 09/11/24 14:25 Metoclopramide Hcl Inj 10 Mg/2 Ml Vial IV PUSH 10 mg Q8H [facility] Administration Morphine Sulfate 2 mg 09/05/24 10:21 09/07/24 20:47 Morphine Sulfate (*Crx) 2 Mg/Ml Inj IV PUSH 2 mg Q4H PRN Administration Pain Rated 7-10 Ondansetron HCl 4 mg 08/31/24 12:25 09/09/24 21:44 Ondansetron Inj 4 Mg/2 Ml Vial IV PUSH 4 mg Q4H PRN Administration Nausea And Vomiting Pantoprazole Sodium 40 mg 09/01/24 21:00 09/11/24 10:17 Pantoprazole Sodium Iv 40 Mg Vial IV PUSH 40 mg Q12HR [facility] Administration Sodium Chloride 10 ml 09/04/24 14:00 09/11/24 14:25 Central Line Flush IV PUSH 10 ml Q8HR [facility] Administration Sodium Chloride 10 ml 09/04/24 14:16 Central Line Flush IV PUSH PRN PRN with TPN bag changes Sodium Chloride 20 ml 09/04/24 14:16 Central Line Flush IV PUSH PRN PRN after blood draws Zolpidem Tartrate 5 mg 09/06/24 21:00 09/10/24 21:06 Zolpidem Tartrate (*Crx) 5 Mg Tablet PO Not Given HS [facility] Radiology Results: ITS Impressions Chest/Abdomen/Pelvis CT 08/31/24 13:07 IMPRESSION: 1. Findings compatible with small bowel obstruction, as detailed above. 2. Pneumoperitoneum. This can be related to G-tube placement if the procedure was performed recently. Correlate clinically and with physical examination to rule out pneumoperitoneum secondary to perforated viscus. 3. Findings concerning for pneumonia, as detailed above. Small Bowel X-Ray 09/03/24 22:06 IMPRESSION: Marked diffuse small bowel dilation. Contrast proceeded through small bowel in an antegrade fashion but did not appear to reach the large bowel by the 4 hour images. This may represent high-grade partial or complete obstruction. NG tube side port terminates at the GE junction, consider advancing. Recommend 24 hour follow-up abdominal radiography (at 13:30 on 08/27/2024). Chest X-Ray 09/04/24 14:50 IMPRESSION: Left upper extremity PICC line in good position and ready for immediate use. Abdomen X-Ray 09/05/24 06:44 Impression: 1: Moderately dilated small bowel with contrast throughout the colon. Differential diagnosis includes ileus and partial small bowel obstruction. Labs Labs: Laboratory Results - last 24 hr 09/10/24 09/11/24 09/11/24 17:05 00:55 05:43 WBC RBC Hgb Hct MCV MCH MCHC RDW Plt Count MPV Immature Gran % (Auto) Neut % (Auto) Lymph % (Auto) [place] % (Auto) Eos % (Auto) Baso % (Auto) Lymph # (Auto) [place] # (Auto) Eos # (Auto) Baso # (Auto) Abs Immat Gran (auto) Absolute Neuts (auto) Absolute Nucleated RBC Nucleated RBC % PT INR APTT Sodium Potassium Chloride Carbon Dioxide Anion Gap BUN Creatinine Estim Creat Clear Calc Estimated GFR Glucose POC Capillary Glucose 115 H 118 H 118 H Calcium Phosphorus Magnesium Transferrin Total Bilirubin AST ALT Alkaline Phosphatase Total Protein Albumin Triglycerides 09/11/24 09/11/24 06:28 11:23 WBC 4.8 RBC 2.48 L Hgb 7.7 L Hct 24.0 L MCV 96.8 MCH 31.0 MCHC 32.1 RDW 17.3 H Plt Count 250 MPV 8.7 Immature Gran % (Auto) 0.4 Neut % (Auto) 66.0 Lymph % (Auto) 22.4 [place] % (Auto) 10.6 H Eos % (Auto) 0.4 Baso % (Auto) 0.2 Lymph # (Auto) 1.08 [place] # (Auto) 0.5 Eos # (Auto) 0.0 Baso # (Auto) 0.0 Abs Immat Gran (auto) 0.02 Absolute Neuts (auto) 3.2 Absolute Nucleated RBC 0.000 Nucleated RBC % 0.0 PT 16.9 H INR 1.4 APTT 26.7 Sodium 128 L Potassium 3.6 Chloride 100 Carbon Dioxide 27 Anion Gap 1 L BUN 28 H Creatinine 0.52 L Estim Creat Clear Calc 82 Estimated GFR > 60 Glucose 94 POC Capillary Glucose 89 Calcium 7.7 L Phosphorus 2.6 Magnesium 2.0 Transferrin 115 L Total Bilirubin 0.4 AST 75 H ALT 68 H Alkaline Phosphatase 86 Total Protein 4.4 L Albumin 2.3 L Triglycerides 62
[2024-09-11] MEDS: DEXTROSE 10% 1,000 ML 50 ML IV CONT (18:22)
[2024-09-11 21:18] VITALS: BP 102/69; PULSE 110; RESP 16; TEMP 36.9; O2SAT 100
[2024-09-12] MEDS: ACETAMINOPHEN 325 MG TABLET 650 MG PO ×4 (00:18→18:43)
[2024-09-12 04:33] VITALS: BP 92/67; PULSE 102; RESP 16; TEMP 36.9; O2SAT 100
[2024-09-12] MEDS: METOCLOPRAMIDE HCL INJ 10 MG/2 ML VIAL IV PUSH ×3 (05:05→22:51)
[2024-09-12] MEDS: DEXTROSE 10% 1,000 ML 50 ML IV CONT (05:05)
[2024-09-12] MEDS: CENTRAL LINE FLUSH 10 ML IV PUSH ×3 (05:07→22:51)
[2024-09-12 07:12] LABS: Anion Gap 3 mmol/L (4-12); Blood Urea Nitrogen 24 mg/dL (9-20); Calcium 7.5 mg/dL (8.4-10.2); Carbon Dioxide 26 mmol/L (22-30); Chloride 98 mmol/L (98-107); Estimated CRCL calculation 83 ml/min; Estimated Glomerular Filt Rate > 60; Glucose 85 mg/dL (65-110); Potassium 3.6 mmol/L (3.4-5.0); Sodium 127 mmol/L (137-145)
[2024-09-12 08:00] VITALS: PULSE 103; RESP 18; O2SAT 98
[2024-09-12] MEDS: PANTOPRAZOLE SODIUM IV 40 MG VIAL IV PUSH ×2 (08:40→20:33)
[2024-09-12] MEDS: ENOXAPARIN 40 MG/0.4 ML SYRINGE SUB-Q (08:40)
--- NOTE | 2024-09-12 10:28 | PM.IMPN ---
Progress Note: A&P Assessment and Plan (1) Protein-calorie malnutrition, severe: Code(s): E43 - Unspecified severe protein-calorie malnutrition Status: Acute Time Spent With Patient Time: Unclear why Reglan was stopped. Patient and nurses do at no. There is no documentation. Discontinue megestrol as it can cause nausea and vomiting. Start Reglan. Discussed the side effects of long-term Reglan use and the patient will like to proceed of course the main priority to him is to be able to eat. Advised him to eat slow at 1st. In the meantime he has not had adequate nutrition so will start TPN. 09/11/2024: The patient's care has been quite complicated. He told me he wanted to do tube feeds but then later refused to the nurse. He also has been refusing food because it does not look good. He still has nausea but he has been able to eat magic ice cream with brownies as well as some supplement shakes. This is an improvement. Probably because the Reglan was restarted. Ultimately, the patient does not want TPN, he is very unclear about whether he wants to do tube feeds are not, it appears he wants to have his own oral intake. At this point, if the Reglan is working we will continue that [facility] and we will send instruction for tube feeds to be started if the patient ever wishes to use them he has been refusing. We also had another discussion about hospice any refused that as well. We discussed the risks versus benefits of inadequate nutrition, Reglan, and he wished to proceed as described above. This conversation was held with nurse. Discontinue TPN. 09/12/2024: Patient reports symptomatic improvement. Continue Reglan. Start tube feeds at 10 cc/hour, patient is willing now. Seems a bit more motivated. Continue oral feeds as tolerated. Patient has low blood pressure and tachycardia, appears dehydrated. Bolus 500 cc of normal saline and follow blood pressure. He was placed on D5 overnight due to hypoglycemia. Advised nurse if his blood sugar is over 100 on recheck the D5 to the tube feeds and hope that those will not cause vomiting. He wishes to be full code. Lovenox 40 mg subQ q.day. Protonix 40 mg IV b.i.d.. PICC line placed on 09/04/2024. Subjective Date/time seen: 09/12/24 10:28 Interval history: No major acute overnight events. Patient reports the nausea is improved. He was able to eat a couple shakes as well as the magic cup. He had loose stool. Today he is amenable to restarting the tube feeds ?if we have to ? Review of Systems Review of Systems: All systems reviewed & are unremarkable except as noted in HPI and below (Subjective) Exam Const: General: comfortable and no acute distress Other: A&O x3, cachectic HENMT: Mouth: Yes dry mucous membranes Eyes: Pupils: Equal, round and reactive pupils present Neck: Neck: supple Resp: Effort & Inspection: normal respiratory effort Auscultation: clear to auscultation bilaterally Cardio: Rate: regular rate Rhythm: regular rhythm GI: Inspection: non-distended GI Palp: Yes Soft to palpation Neuro: Other: Globally weak Extrem: General: no edema Objective Data Vital Signs Vital Signs: Vital Signs - 24 hr 09/11/24 12:58 09/11/24 13:07 09/11/24 14:00 Temperature 97.9 F Pulse Rate 110 H Respiratory Rate 18 Blood Pressure 106/72 Pulse Oximetry 99 Oxygen Delivery Room Air Room Air 09/11/24 20:00 09/11/24 21:18 09/12/24 04:33 Temperature 98.4 F 98.5 F Pulse Rate 110 H 102 H Respiratory Rate 16 16 Blood Pressure 102/69 92/67 L Pulse Oximetry 100 100 Oxygen Delivery Room Air Intake/Output Intake/Output: Intake & Output 09/09/24 09/10/24 09/11/24 09/12/24 23:59 23:59 23:59 23:59 Intake Total 604 866 7870.8 Output Total 1300 1150 901 610 Balance -1050 -910 -901 675.8 Meds/Results Medications: Active Medications Generic Name Dose Route Start Last Admin Trade Name Freq PRN Reason Stop Dose Admin Acetaminophen 650 mg 08/25/24 14:38 09/12/24 05:05 Acetaminophen 325 Mg Tablet PO 650 mg Q4H PRN Administration Mild Pain (1-3) or Fever Dextrose 12.5 gm 08/30/24 07:17 09/09/24 11:59 Dextrose 50% 25 Gm/50 Ml Syringe IV PUSH 12.5 gm PRN PRN Administration Hypoglycemia Protocol Docusate Sodium 100 mg 09/10/24 21:00 09/12/24 08:04 Docusate Sodium Liq 100 Mg/10 Ml Udc FEED TUBE Not Given Q12HR [facility] Enoxaparin Sodium 40 mg 08/28/24 09:00 09/12/24 08:40 Enoxaparin 40 Mg/0.4 Ml Syringe SUB-Q 40 mg QAM [facility] Administration Glucose 15 gm 08/30/24 07:17 Glucose Oral Gel 15 Gm Of Glucse In 37.5 Gm Tube PO PRN PRN Hypoglycemia Protocol Dextrose 1,000 mls @ 100 mls/hr 08/30/24 07:17 Dextrose 5% 1,000 Ml IVPB PRN PRN Hypoglycemia Protocol Dextrose 1,000 mls @ 50 mls/hr 09/10/24 11:11 09/12/24 05:05 Dextrose 10% IV CONT 50 mls/hr .Q20H PRN Administration if PN is interrupted Sodium Chloride 500 mls @ 999 mls/hr 09/12/24 10:27 Normal Saline Iv IV CONT 09/12/24 10:57 .Q31M ONE Insulin Human Regular 2 - 5 units 08/30/24 18:00 09/12/24 05:19 Insulin Human Regular (*Bkc) 100 Units/Ml SUB-Q Not Given Q6HR [facility] Protocol Metoclopramide HCl 10 mg 09/10/24 14:00 09/12/24 05:05 Metoclopramide Hcl Inj 10 Mg/2 Ml Vial IV PUSH 10 mg Q8H [facility] Administration Morphine Sulfate 2 mg 09/05/24 10:21 09/07/24 20:47 Morphine Sulfate (*Crx) 2 Mg/Ml Inj IV PUSH 2 mg Q4H PRN Administration Pain Rated 7-10 Ondansetron HCl 4 mg 08/31/24 12:25 09/09/24 21:44 Ondansetron Inj 4 Mg/2 Ml Vial IV PUSH 4 mg Q4H PRN Administration Nausea And Vomiting Pantoprazole Sodium 40 mg 09/01/24 21:00 09/12/24 08:40 Pantoprazole Sodium Iv 40 Mg Vial IV PUSH 40 mg Q12HR [facility] Administration Sodium Chloride 10 ml 09/04/24 14:00 09/12/24 05:07 Central Line Flush IV PUSH 10 ml Q8HR [facility] Administration Sodium Chloride 10 ml 09/04/24 14:16 Central Line Flush IV PUSH PRN PRN with TPN bag changes Sodium Chloride 20 ml 09/04/24 14:16 Central Line Flush IV PUSH PRN PRN after blood draws Zolpidem Tartrate 5 mg 09/06/24 21:00 09/11/24 21:19 Zolpidem Tartrate (*Crx) 5 Mg Tablet PO Not Given HS [facility] Radiology Results: ITS Impressions Chest/Abdomen/Pelvis CT 08/31/24 13:07 IMPRESSION: 1. Findings compatible with small bowel obstruction, as detailed above. 2. Pneumoperitoneum. This can be related to G-tube placement if the procedure was performed recently. Correlate clinically and with physical examination to rule out pneumoperitoneum secondary to perforated viscus. 3. Findings concerning for pneumonia, as detailed above. Small Bowel X-Ray 09/03/24 22:06 IMPRESSION: Marked diffuse small bowel dilation. Contrast proceeded through small bowel in an antegrade fashion but did not appear to reach the large bowel by the 4 hour images. This may represent high-grade partial or complete obstruction. NG tube side port terminates at the GE junction, consider advancing. Recommend 24 hour follow-up abdominal radiography (at 13:30 on 08/27/2024). Chest X-Ray 09/04/24 14:50 IMPRESSION: Left upper extremity PICC line in good position and ready for immediate use. Abdomen X-Ray 09/05/24 06:44 Impression: 1: Moderately dilated small bowel with contrast throughout the colon. Differential diagnosis includes ileus and partial small bowel obstruction. Labs Labs: Laboratory Results - last 24 hr 09/11/24 09/11/24 09/11/24 06:28 11:23 17:54 Sodium Potassium Chloride Carbon Dioxide Anion Gap BUN Creatinine Estim Creat Clear Calc Estimated GFR Glucose POC Capillary Glucose 89 77 Calcium Phosphorus Triglycerides 62 09/11/24 09/12/24 09/12/24 18:48 00:08 04:35 Sodium Potassium Chloride Carbon Dioxide Anion Gap BUN Creatinine Estim Creat Clear Calc Estimated GFR Glucose POC Capillary Glucose 111 H 136 H 90 Calcium Phosphorus Triglycerides 09/12/24 09/12/24 06:45 07:32 Sodium 127 L Potassium 3.6 Chloride 98 Carbon Dioxide 26 Anion Gap 3 L BUN 24 H Creatinine 0.51 L Estim Creat Clear Calc 83 Estimated GFR > 60 Glucose 85 POC Capillary Glucose 112 H Calcium 7.5 L Phosphorus 2.6 Triglycerides
--- NOTE | 2024-09-12 10:46 | PCNFU ---
Nutrition Follow-Up Complete: 1. Severe Protein Calorie Malnutrition as related to inadequate protein energy intake with increased protein energy needs in setting of chronic disease as evidenced by minimal oral intake for > 1-2 months; significant weight loss of 42% (60 ibs) 4 months; severe subcutaneous fat loss(orbital fat pads, triceps) and muscle wasting (temporalis/clavicle) 2. Inadequate oral intake related to loss of appetite, altered GI function as evidenced by poor appetite, need for supplemental tube feedings. Meet estimated nutritional needs. - Slow progress with goal. Continue with same goal Goal: Pt current nutrition is Regular diet. Nutritional ice cream TID (270 kcal, 9 g protein) Nutrition recommendation: Start tube feedings per PEG: Osmolite 1.5 @ 10 ml/h to provide 330 kcal, 14 g protein, 168 ml free water Last recorded weight is 48.8 kg. Bowel Motility: +1 BM 8/5 Labs Reviewed: Na 127, BUN 24, Cre 0.51 Meds Noted: Reglan, lovenox, protonix Skin: Seen by wound care. No pressure injuries. Additional Notes: Tube feedings providing 7 kcal/kg, 0.3 g protein/kg. Not adequate for needs. Pt agrees to tube feedings only at this low rate because of previous intolerance. Per MD notes pt does not want TPN, does not really want tube feedings, wants to be able to eat. He is taking in more PO and tolerating better with added Reglan. Will continue to monitor. Goal rate is 40 ml/h, would like pt tolerate at least 20-30 ml/h. Will monitor tube feeding tolerance, PO intake, weight, labs, skin, diet orders, meds every Wednesday and Wednesday.
[2024-09-12] MEDS: SODIUM CHLORIDE 0.9% IV 500 ML 999 ML IV CONT (11:02)
[2024-09-12 14:00] VITALS: BP 97/68; PULSE 103; RESP 18; TEMP 36.8; O2SAT 98
[2024-09-12] MEDS: ONDANSETRON INJ 4 MG/2 ML VIAL IV PUSH (15:23)
[2024-09-12] MEDS: ZOLPIDEM TARTRATE (*CRX) 5 MG TABLET PO (20:33)
[2024-09-12 21:06] VITALS: BP 100/66; PULSE 98; RESP 16; TEMP 36.9; O2SAT 98
[2024-09-13] MEDS: ACETAMINOPHEN 325 MG TABLET 650 MG PO (03:45)
[2024-09-13] MEDS: DEXTROSE 50% 25 GM/50 ML SYRINGE IV PUSH ×2 (04:37→11:53)
[2024-09-13 05:24] VITALS: BP 103/66; PULSE 106; RESP 18; TEMP 37; O2SAT 98
[2024-09-13 07:20] LABS: Anion Gap 4 mmol/L (4-12); Blood Urea Nitrogen 26 mg/dL (9-20); Calcium 7.3 mg/dL (8.4-10.2); Carbon Dioxide 23 mmol/L (22-30); Chloride 96 mmol/L (98-107); Estimated CRCL calculation 82 ml/min; Estimated Glomerular Filt Rate > 60; Glucose 89 mg/dL (65-110); Potassium 3.1 mmol/L (3.4-5.0); Sodium 123 mmol/L (137-145); Triglycerides 49 mg/dL (<150)
[2024-09-13] MEDS: ENOXAPARIN 40 MG/0.4 ML SYRINGE SUB-Q (09:04)
[2024-09-13] MEDS: PANTOPRAZOLE SODIUM IV 40 MG VIAL IV PUSH (09:04)
--- NOTE | 2024-09-13 12:09 | P.DS_ITS ---
DS: Admitting Diagnosis Discharge Date 09/13/2024 Admitting Diagnosis nausea and vomiting DS: Discharge Diagnosis Discharge Diagnosis (1) Protein-calorie malnutrition, severe: Code(s): E43 - Unspecified severe protein-calorie malnutrition Status: Acute (2) Nausea and vomiting in adult: Code(s): R11.2 - Nausea with vomiting, unspecified Status: Acute (3) Status post insertion of percutaneous endoscopic gastrostomy (PEG) tube: Code(s): Z93.1 - Gastrostomy status Status: Acute DS: Summary Hospital Course Hospital Course: this patient is a 63-year-old male with a history of DVT, PE, chronic anemia, 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 the patient had lost 40 lb over in 3 months due to severe nausea and vomiting from chemotherapy. His oncologist recommended a PEG tube as his severe malnutrition was worsening. A PEG tube was successfully placed on 08/25/2024 without any immediate complications. Afterwards, he developed a small-bowel obstruction and had an NG tube placed for decompression. Eventually this was removed. Afterwards, the patient had a hard time sustaining oral intake as he did not seem motivated at 1st. He also had severe nausea,megestrol was discontinued and Reglan was started. It appears the Reglan scheduled dosing before meals has improved his nausea markedly. The risks versus benefits of using this medication long-term were discussed and he wishes to proceed. he received PPN and TPN at some point, he was also refusing tube feeds. On 09/13/2024 the patient is being discharged in stable condition to [facility]. He refuses to stay any longer and Assumes the risk of electrolyte abnormalities, and nutritional deficits. we have however come to a significant improvement, the patient is able to have some intake at his own pace. he is tolerating Magic cups and brownies and dietary shakes along with old male. He has allowed us to place tube feeds at 10 cc/hour, does not want them advanced at this time and wants to think about advancing them at the detention. He is aware of his electrolyte abnormalities and the dangers of not banda ving them corrected entirely and wants to be discharged anyway. Sodium 123, potassium 3.1, serum creatinine 0.53, magnesium 2.0. The patient was full code during the admission. Time Spent with Patient Time attestation: Total time spent providing and/or coordinating discharge services: Time spent: Greater than 30 minutes Exam Const: General: comfortable and no acute distress Other: A&O x3, cachectic HENMT: Mouth: Yes dry mucous membranes Eyes: Pupils: Equal, round and reactive pupils present Neck: Neck: supple Resp: Effort & Inspection: normal respiratory effort Auscultation: clear to auscultation bilaterally Cardio: Rate: regular rate Rhythm: regular rhythm GI: Inspection: non-distended GI Palp: Yes Soft to palpation Neuro: Other: Globally weak Extrem: General: no edema DS: Data Data Completed and Pending Completed studies during hospitalization: Pending at discharge 08/25/24 13:48 Surgical [PTH] Routine Labs on day of discharge: Labs from last 24 hours 09/13/24 09/13/24 09/13/24 11:16 05:36 05:03 Sodium 123 L Potassium 3.1 L Chloride 96 L Carbon Dioxide 23 Anion Gap 4 BUN 26 H Creatinine 0.53 L Estim Creat Clear Calc 82 Estimated GFR > 60 Glucose 89 POC Capillary Glucose 71 117 H Calcium 7.3 L Phosphorus 2.9 Triglycerides 49 09/13/24 09/12/24 09/12/24 04:28 23:18 18:26 Sodium Potassium Chloride Carbon Dioxide Anion Gap BUN Creatinine Estim Creat Clear Calc Estimated GFR Glucose POC Capillary Glucose 57 L* 79 73 Calcium Phosphorus Triglycerides 09/12/24 16:53 Sodium Potassium Chloride Carbon Dioxide Anion Gap BUN Creatinine Estim Creat Clear Calc Estimated GFR Glucose POC Capillary Glucose 76 Calcium Phosphorus Triglycerides Discharge Plan Discharge Attending physician on discharge: Chandni Thomas Consulting providers: Alicia Blackwell Discharging Clinician: Chandni Thomas Patient Disposition: SNF Activity: may shower Diet: as tolerated Discharge Instructions: continue assessments for need for PICC line. If feeding to and/or oral nutrition is adequate, consider removing. Patient Language: Citizen [place] Stand Alone Forms: General Discharge Information Discharge Medications: New metoclopramide HCl [Reglan] 10 mg tablet 10 mg PO Q8H Qty: 90 0RF Rx Instructions: administer before meals Continued ondansetron HCl 4 mg tablet 4 mg PO Q12H PRN (Reason: nausea and vomiting) Patient Comments: pt states he currently taking pantoprazole 40 mg tablet,delayed release (DR/EC) 40 mg PO QAM Qty: 30 11RF Discontinued dicyclomine 10 mg capsule 10 mg PO TID Qty: 12 0RF megestrol 400 mg/10 mL (40 mg/mL) suspension 400 mg PO BID sucralfate [Carafate] 100 mg/mL suspension 1 g PO TID Qty: 1000 0RF promethazine 25 mg tablet See Rx Instructions .ROUTE .COMPLEX Qty: 90 1RF Dose Instruction: TAKE 1 TABLET BY MOUTH EVERY 6 HOURS NEEDED FOR NUASEA AND VOMITING Rx Instructions: TAKE 1 TABLET BY MOUTH EVERY 6 HOURS NEEDED FOR NUASEA AND VOMITING Date of admission: 08/27/24 10:57 Primary Care Provider: DenisGuadalupe Admitting Provider: Mehdi Ramon Attending physician on admission: Mehdi Ramon Condition: Stable Hospitalist MIPS Heart Failure (Exclusion) Patient has history of Heart Transplant or Left Ventricular Assistive Device?: No IF YES, STOP HERE Heart Failure (Qualifier) Patient has current or prior documentation of LVEF less than or equal to 40%, or mod/servere depressed LVSF?: No IF NO, STOP HERE
[2024-09-13] MEDS: POTASSIUM CHLORIDE 20 MEQ ER TABLET 40 MEQ PO (13:02)
--- NOTE | 2024-09-13 13:18 | PCPTNOTE ---
Patient declined PT stating he was being discharged today and would like to rest.
--- NOTE | 2024-09-13 13:28 | PC.NURSE ---
ordered to keep picc line in at discharge. report was given to receiving facility. after orders were faxed, facility then called back to request we pull picc line as they did not see that they would use it. This RN called and asked hospitalist if it was ok to remove picc and he agreed. a telephone order was put in to remove picc
[2024-09-13 14:00] VITALS: BP 103/64; PULSE 98; RESP 18; TEMP 36.8; O2SAT 98
[2024-09-13] MEDS: METOCLOPRAMIDE HCL INJ 10 MG/2 ML VIAL IV PUSH (14:17)
[2024-09-13] MEDS: CENTRAL LINE FLUSH 10 ML IV PUSH (14:18)
[2024-09-13] MEDS: NEOMYCIN/POLYMYXIN/BACITRACIN OINTMENT PACKET 1 PACKET (14:18)
--- NOTE | 2024-09-13 15:05 | PCOTNOTE ---
Patient declined at this time. Patient states he is being discharged to a rehab facility and waiting for his ride.
== END 2024-09-13 15:54 | DRG 641 ==
LOC: ANHENDO 11:53 → ANH3MEDSUR 11:53
PROVIDERS: Hospitalist; Internal Medicine; Nurse Practitioner Adult Health; Nurse Practitioner Gerontology; Admitting Provider Internal Medicine Gastroenterology; PCP Internal Medicine; Referring Provider Internal Medicine Gastroenterology; Visit Provider General Practice
PROC: 0DH63UZ Insertion of Feeding Device into Stomach, Percutaneous Approach (ICD-10-PCS; CPT 43246; principal; 2024-08-25 13:30)
DX: E43 Unspecified severe protein-calorie malnutrition (principal); E87.1 Hypo-osmolality and hyponatremia; C18.0 Malignant neoplasm of cecum; K56.609 Unspecified intestinal obstruction, unspecified as to partial versus complete obstruction; D62 Acute posthemorrhagic anemia; Z68.1 Body mass index [BMI] 19.9 or less, adult; I95.9 Hypotension, unspecified; E87.6 Hypokalemia; E86.0 Dehydration; E83.51 Hypocalcemia; E16.2 Hypoglycemia, unspecified; M19.90 Unspecified osteoarthritis, unspecified site; R62.7 Adult failure to thrive; F12.90 Cannabis use, unspecified, uncomplicated; Z85.038 Personal history of other malignant neoplasm of large intestine; Z86.711 Personal history of pulmonary embolism; Z79.01 Long term (current) use of anticoagulants; Z87.891 Personal history of nicotine dependence
CPT/HCPCS: 36415; 36569; 43246; 71250; 74018; 74019; 74176; 74250; 80048; 80053; 80307; 82274; 82728; 82948; 83540; 83550; 83735; 84100; 84466; 84478; 85014; 85018; 85025; 85027; 85046; 85610; 85730; 88305; 93005; 97110; 97116; 97162; 97164; 97166; 97530; 97535; A9270; C1726; C1751; J0613; J1650; J1756; J2003; J2270; J2405; J2470; J2704; J2765; J3480; J7030; J7040; J7120; J7121; P9047